=== PATIENT | female | born 1950 | race Caucasian/White ===

== ENCOUNTER → 2016-10-15 | Outpatient (CLI) | payer MEDICARE, BC ==
[2016-10-15 11:53] VITALS: BP 104/70; PULSE 83; RESP 18
--- NOTE | 2016-10-16 22:05 | P.PN ---
Subjective This is follow-up visit for this patient with a history of severe and chronic low back pain secondary to sacroiliitis, lumbar facet arthropathy, we have done interventional pain management injection, bilateral sacroiliac joint steroid injection, x2 , patient reported that she gets excellent pain relief after each one of them, and is currently on pain medications 1- Percocet 7.5/325 every 8 hours 2- Neurontin 400 mg twice a day 3 - baclofen 10 mg 3 times a day when necessary Patient denies any side effects of the medication, denies excessive drowsiness or sleepiness, denies suicidal ideation, and reports that the current pain medication is helping To control the pain and improve activity of daily living Physical Examinations : 1-Constitutiona : Cooperative , not in acute distress . 2-HEENT : nech ; supple , no Lymphadenopathy , no Thyromegaly , normal thyroid size . eyes : no ptosis , no icterus, no photophobia . ENT : normal of hearing , normal oropharynx , no Thrush . 3- Respiratory : Chest clear to auscultations Bilaterally , no wheezing , no Rhonchi . 4- Cardiovascular : regular rate and rhythem , S1 , S2 , no S3 , no S4. 5- Gastrointestinal : abdomen soft no tenderness , bowel sounds positive all four quadrents , no organomegally . 6- Genitourinary : Defferred . 7- neurologic : Cranial nerve II to XII intact , no focal neurological deffecit . 8-psychatric : alert , oriented X 3 , appropriate affect , intact judgment and insight . 9-Lymphatic : no Lymphadenopathy . 10- musculoskeltal : exams of the cervical spine = motor strength normal bilateral upper extremities exams of the Lumber spine = motor strength lower extremities ,thigh and legs .5/5 deep tendon reflexes : normal Knee Jerk , normal ankle Jerk . lumber facet Loading Test positive strait leg raising test positive at 30 degree , RT ,LT , Fabere test positive RT and positive LT . Range of motion: Range of motion in flexion of the lumbar spine 30 degrees Range of motion range of motion of extension of the lumbar spine 10 Sever tenderness over the Sacroiliac joint on the Right , and Left side Assessment and plan = - Chronic low back pain secondary to lumbar degenerative disc disease , lumbar spondylosis with facet arthropathy without myelopathy , and bilateral sacroiliitis -chronic and current use of high-risk medication (Opioids). The patient was counseled about risk of opioid use, psychological risk associated with opioids and was orally counseled to not overuse , abuse , divert ,or sell dictations to take medications as prescribed only , and to restore medication in safe location , and patient counseled against driving while using narcotic medications, and also not to use alcohol or any illicit recreational drugs the patient's verbalized understanding that the lack of compliance will result in failure to renew narcotic prescription and possible discharge from the clinic - diagnoses, prognosis, and treatment options including but not limited to physical therapy, surgical interventions, interventional therapies and medication management including narcotics and adjuvant medication were discussed with the patient and all questions answered to the patient's satisfaction. -medication refile =1-Percocet 7.5/325 every 8 hours dispense 60 with 1 refill 2- Neurontin 400 mg twice a day dispense 60 with one refill 3- baclofen 10 mg 3 times a day when necessary -procedure= patient will be good candidate to have radiofrequency ablation of the sacroiliac joint (which is the radiofrequency of the dorsal ramus of L5-S1/ and the lateral branches of S1/S2/S3, we'll start the left side then we'll do the right side later on. Procedure risk and benefits and alternatives discussed with the patient and she agreed with proceeding he shouldn't have to stop the xarlto for 3 days before the procedure Objective - Vital Signs Vital signs: Vital Signs Temp Pulse 83 10/15/16 11:47 Resp 18 10/15/16 11:47 BP 104/70 10/15/16 11:47 Pulse Ox 96 10/15/16 11:47
== END | disposition home or self-care (01) ==
LOC: PNWHC3 11:27
PROVIDERS: ATTEND Specialist
DX: M51.36 Other intervertebral disc degeneration, lumbar region (principal); M47.816 Spondylosis without myelopathy or radiculopathy, lumbar region; M46.96 Unspecified inflammatory spondylopathy, lumbar region; M46.1 Sacroiliitis, not elsewhere classified; Z79.891 Long term (current) use of opiate analgesic
CPT/HCPCS: 99211

== ENCOUNTER 2016-12-03 09:14 | Day surgery (SDC) | payer MEDICARE, BC ==
[2016-11-29 16:10] VITALS: BMI 44.9
[~2016-12-03 09:14] MED LIST: LACTATED RINGERS 1,000 ML IV SCH
[2016-12-03 10:24] VITALS: RESP 16; TEMP 98.1
[2016-12-03] MEDS ORDERED: LIDOCAINE 1% 20 ML VIAL (10MG/ML) FOR IV START INTRADERMA ONE (10:36)
[2016-12-03] MEDS ORDERED: MIDAZOLAM 2 MG/2 ML VIAL ONE (10:47)
[2016-12-03] MEDS ORDERED: fentaNYL (PF) 50 MCG/ML 2 ML AMP ONE (10:47)
--- NOTE | 2016-12-03 11:14 | P.PCN ---
Date of Procedure: 12/03/16 Surgeon: Sheldon Rock Pathology: none sent Condition: stable Disposition: PACU Description of Procedure: PREOPERATIVE DIAGNOSIS: Sacroiliitis; lumbar spondylosis without myelopathy POSTOPERATIVE DIAGNOSIS: Sacroiliitis; lumbar spondylosis without myelopathy PROCEDURE: Radiofrequency thermocoagulation/ablation of the Medial branch of L5 and S1, S2, S3 lateral branch levels under fluoroscopic guidance, left ANESTHESIA: Local with 1% lidocaine; IV conscious sedation with Versed/fentanyl EBL: Minimal PROCEDURE INDICATION: The patient with low back pain secondary to sacroilitis with marked decrease in pain with prior sacroiliac joint injections. Off Xarelto since 11/29/16. PROCEDURE DESCRIPTION: The patient was seen and identified in the preoperative area. Risks, benefits, complications, and alternatives were discussed with the patient, with risks including but not limited to bleeding, infection, nerve damage, incomplete pain relief, and allergic reactions to medications. The patient agreed to proceed with the procedure and signed the informed consent after all questions were answered. IV was started. Vital signs were stable throughout the procedure. Patient was taken to the OR and time out was completed.The patient was placed in the prone position on procedure table and a pillow was placed under the abdomen to reduce lumbar lordosis. The lumbosacral area was prepped and draped in the usual sterile fashion. Critical pause was taken. Vital signs were closely monitored during the procedure. L5 Medial Branch: Using right oblique fluoroscopy, the junction of the transverse process and the superior articular process of the top of the sacrum on the left side, which correspond to the fluoroscopic image of the "eye of the Dick dog" was identified. Skin and deeper tissues were localized with 1% lidocaine at the identified level. Then using fluoroscopy, a 10-cm 20-gauge radiofrequency cannula with a 10-mm active tip was was advanced under fluoroscopic guidance until contact was made with periosteum. At this level, the Sensory testing of L5 Medial branch was performed at 50 Hz and 0 to 1 volt with production of concordant pain. Motor stimulation was done at 2 Hz with stimulation of multifidus muscle contraction at (0.1-2.5) volts. No radicular symptoms or paresthesias were produced during the testing. Subsequently, the L5 medial branch was subjected to a radiofrequency ablation at a mode of 90 seconds at 80 degrees Celsius after negative motor and sensory testing as indicated and after injecting 0.5 ml of preservative free Lidocaine 1%. Then after the radiofrequency procedure was done, 1 mL of a solution containing 4 mL of 0.5% preservative-free lidocaine mixed with 40 mg of Kenalog. S1, S2, and S3 Medial branches: Using the oblique position, the left sacroiliac joint was identified. Skin and deeper tissues corresponding to the site were anesthetized with 1% lidocaine. Under fluoroscopic guidance, a total of three 10-cm 18-gauge radiofrequency cannula with 10-mm active tips were advanced to the lateral aspects of the S1, S2, and S3 vertebral foramina. Subsequently, sensory and motor testings were performed at a total of 3 segments at 50 Hz and 2 Hz respectively which produced concordant pain without radiculopathy or paresthesia. Then each segment was subjected to radiofrequency ablation at a mode of 90 seconds at 80 degrees Celsius for a total of 3 lesions with the bipolar technique. Then after the radiofrequency procedure was done, each site was injected with 1 mL of the aforementioned solution containing 3 mL of 0.5% preservative-free lidocaine mixed with 40 mg of Kenalog. The needles were withdrawn. Area was cleaned. Band-Aid was applied. COMPLICATIONS: None. COMMENTS: DISPOSITION / PLANS: The patient was placed in a supine position and transferred to the recovery area in a stable condition for observation and was discharged from the recovery room after meeting discharge criteria. Home discharge instructions given to the patient by the staff. The patient was reexamined prior to discharge. The patient will schedule a follow up for right SI RFA in 4-6 weeks.
--- NOTE | 2016-12-03 11:20 | FL ---
EXAMINATION TYPE: FL guided pain mgmt statistic DATE OF EXAM: 12/03/2016 11:15 AM HISTORY: Flouroscopy time Less than 1 minute of fluoroscopy provided. IMPRESSION: 1. Fluoroscopy time.
[2016-12-03] MEDS ORDERED: IV FLUID CONTINUATION 1,000 ML IV ONE (11:22)
[2016-12-03 11:40] VITALS: BP 118/70; PULSE 67
== END 2016-12-03 12:05 | disposition home or self-care (01) ==
LOC: ORPAIN 09:14
PROVIDERS: ATTEND Anesthesiology
DX: G89.29 Other chronic pain (principal); M54.5 Low back pain; M46.1 Sacroiliitis, not elsewhere classified; M47.816 Spondylosis without myelopathy or radiculopathy, lumbar region; Z79.01 Long term (current) use of anticoagulants; E66.01 Morbid (severe) obesity due to excess calories; Z68.41 Body mass index [BMI] 40.0-44.9, adult; Z88.0 Allergy status to penicillin; Z88.8 Allergy status to other drugs, medicaments and biological substances
CPT/HCPCS: 64640 ×3; 64635; 99152; 99153; J2250; J3010; 64636

== ENCOUNTER → 2017-01-14 | Day surgery (SDC) | payer MEDICARE, BC ==
[2017-01-09 15:04] VITALS: BMI 44.9
[~2017-01-14] MED LIST changes: +BUPIVACAINE (PF) 0.5% 30 ML VIAL ONE; +IV FLUID CONTINUATION 1,000 ML IV ONE; +LIDOCAINE 1% 20 ML VIAL (10MG/ML) FOR IV START INTRADERMA ONE; +MIDAZOLAM 2 MG/2 ML VIAL ONE; +TRIAMCINOLONE ACETONIDE 40 MG/ML 1 ML VIAL ONE; +fentaNYL (PF) 50 MCG/ML 2 ML AMP ONE
[2017-01-14 09:34] VITALS: TEMP 98.3
--- NOTE | 2017-01-14 10:35 | P.PCN ---
Date of Procedure: 01/14/17 Procedure(s) Performed: PREOPERATIVE DIAGNOSIS: 1-Lumbosacral spondylosis with facet arthropathy without myelopathy. 2- Bilateral sacroiliit. post operative Diagnosis: . 1-Lumbosacral spondylosis with facet arthropathy without myelopathy. 2-Bilateral sacroiliit. PROCEDURES: 1- Right radiofrequency thermocoagulation/ablation of the L5 dorsal ramus. 2- Right multi-site radiofrequency thermocoagulation/ablation of the S1, S2, and S3 lateral branchs. The procedure was performed using fluoroscopic guidance during needle placement to assure proper position and maximize safety ANESTHESIA: LOCAL ANESTHESIA and IV sedation with versed 2 mg ,and Fentanyle 100 mcg EBL: NONE INDICATION/MEDICAL NECESSITY: History of low back pain secondary to bilateral sacroiliitis and lumbosacral arthropathy unresponsive to more conservative treatments. The patient reported more than 50% relief of pain symptoms following 2 previous diagnostic blocks with Bupivacaine. PROCEDURE DESCRIPTION: The patient was seen and identified in the preoperative area. Risks, benefits, complications, and alternatives were discussed with the patient. The patient agreed to proceed with the procedure and signed the consent. Vital signs were checked before and after the procedure and they remained stable. Patient ambulated to the procedure room and time out was completed. The patient was placed in the prone position on the procedure table and a pillow was placed under the abdomen to reduce lumbar lordosis. The lumbosacral area was prepped and draped in the usual sterile fashion. Critical pause was taken. L5 Dorsal Ramus RF: Using right oblique fluoroscopy, the junction of the transverse process and the superior articular process of the right S1 vertebra, which correspond to the fluoroscopic image of the "eye of the Dick dog" was identified. Subsequently, a 10-cm 20 -gauge radiofrequency cannula with a 10-mm active tip was advanced under fluoroscopic guidance until contact was made with periosteum. At this level, the Sensory testing of the L5 dorsal ramus was performed at 50 Hz and 0 to 1 volt with production of concordant pain starting at 0.5 volt. Motor stimulation was done at 2.5 Hz with stimulation of mulitifidus muscle contration . No radicular symptoms or paresthesias were produced during the testing. Subsequently, the L5 dorsal ramus was subjected to a radiofrequency ablation at 80 degree celsius for 90 seconds . after 0.5% Bupivacaine 1 ml injected at each level after negative aspirations . The needle was withdrawn intact . S1, S3, and S3 Lateral Branch RF: The lateral margins of the Right S1, S2, and S3 foramina were identified using AP fluoroscopy. Under fluoroscopic guidance, three 10-cm 20 -gauge radiofrequency cannula with a 10-mm active tip were inserted at 8-10 mm peripheral to the posterior S1 foramen, at various locations using clock-face coordinates. The center of the clock was registered at the lateral margin of the foramen. The 2:30, 4:00, and 5:30 oclock positions were used. At this level , the sensory testing of the S1 lateral branch was performed at 50 Hz and 0 to 1 volt at the three levels with production of concordant pain starting at 0.5 volt. Motor stimulation was done at 2.5 Hz. No radicular symptoms or paresthesias were produced during the testing. Subsequently, the S1 lateral branch was subjected to a radiofrequency ablation at a mode of 90 seconds at 80 degrees Celsius at the 3 levels after negative motor and sensory testing and after injecting 0.5 ml of preservative free Bupivacaine 0.5 %. The same procedure was performed at the level of the S2 foramen. For the S3 foramen, only the 2:30 and 4:00 oclock positions were used. Sensory and motor testing followed by radiofrequency ablation were performed as described for the S1 and S2 foramina. The needle was withdrawn intact after each injection. COMPLICATIONS: The patient tolerated the procedure well without any acute complications. DISPOSTION/PLAN: The patient ambulated to the recovery area after the procedure in a stable condition for observation. Patient was reexamined prior to discharge. Patient was observed for 30 minutes in the recovery area and was discharged home, accompanied by an adult, after meeting discharged criteria. Discharge instructions were give to the patient by the staff. Patient was specifically instructed not to drive today and to rest for the rest of the day. The patient will schedule a follow up visit in the clinic in 2-4 weeks or earlier if needed.
[2017-01-14 10:48] VITALS: RESP 16
[2017-01-14 11:04] VITALS: BP 116/67; PULSE 68
--- NOTE | 2017-01-14 13:04 | FL ---
EXAMINATION TYPE: FL guided pain mgmt statistic DATE OF EXAM: 01/14/2017 10:42 AM FLUOROSCOPY Fluoroscopy time of 52 seconds was used during right sacral radiofrequency procedure. 8 image/s docu ment/s the procedure.
== END ==
LOC: ORPAIN 08:32
PROVIDERS: ATTEND Specialist
DX: M47.817 Spondylosis without myelopathy or radiculopathy, lumbosacral region (principal); M46.97 Unspecified inflammatory spondylopathy, lumbosacral region; M46.1 Sacroiliitis, not elsewhere classified; E27.40 Unspecified adrenocortical insufficiency; Z88.1 Allergy status to other antibiotic agents; Z88.0 Allergy status to penicillin; Z88.8 Allergy status to other drugs, medicaments and biological substances; Z79.01 Long term (current) use of anticoagulants
CPT/HCPCS: 64640 ×3; 64635; 99152; 99153 ×2; J2250; J3301; J3010

== ENCOUNTER → 2017-02-06 | Outpatient (CLI) | payer MEDICARE, BC ==
[2017-02-06 12:33] VITALS: BP 132/85; PULSE 75; RESP 18; TEMP 98
--- NOTE | 2017-02-07 21:59 | P.CONS ---
History of Present Illness - Reason for Consult Consult date: 02/06/17 - History of Present Illness This is follow-up visit for this 66 years old female with a history of chronic low back pain diagnosed with lumbar spondylosis and sacroiliitis, done radiofrequency ablation of the sacroiliac joint right side and left side, she reported that her pain improved significantly after the radiofrequency and she is currently taking pain medication Percocet 7.5/325 every 8 hours when necessary, and Neurontin 400 mg twice a day, and baclofen 5 mg 3 times a day, denies any side effect of the medication she denies any excessive drowsiness or sleepiness and she reports the current pain medication helping her to control her pain. 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 MTHFR GENE. STUCCO KERATOSIS, past fxs of L foot and R ankle, sciatic problems, diverticulitis History of Any Multi-Drug Resistant Organisms: None Reported Past Surgical History: Section, Cholecystectomy, Heart Catheterization , Orthopedic Surgery Additional Past Surgical History / Comment(s): RT ANKLE- PLATE & SCREWS, COLONOSCOPIES, EGDs, Bronchial Thermoplasty X3., KENDALL CATARACTS with lens implants. DEVIATED SEPTUM SURGERY. MULTIPLE BRONCHOSCOPIES, ABLATION of lungs. Past Anesthesia/Blood Transfusion Reactions: Family History of Problems w/ Anesthesia, Postoperative Nausea & Vomiting (PONV) Additional Past Anesthesia/Blood Transfusion Reaction / Comm: Pt has never received blood. DAUGHTER PONV Past Psychological History: No Psychological Hx Reported Additional Psychological History / Comment(s): . Smoking Status: Former smoker Past Alcohol Use History: None Reported Additional Past Alcohol Use History / Comment(s): quit smoking in 1989, smoked 1 /2 ppd x 10 years Past Drug Use History: None Reported - Past Family History Father Family Medical History: Cancer Additional Family Medical History / Comment(s): colon Mother Family Medical History: Congestive Heart Failure (CHF) Additional Family Medical History / Comment(s): emphysema Daughter(s) Family Medical History: Deep Vein Thrombosis (DVT) Medications and Allergies Home Medications Medication Instructions Recorded Confirmed Type Simvastatin [Zocor] 10 mg PO HS 04/27/14 01/14/17 History Atenolol [Tenormin] 25 mg PO QAM 10/19/14 01/14/17 History Fluticasone Propionate [Flovent 2 puff INHALATION BID 10/19/14 01/14/17 History Hfa 220MCG] Furosemide [Lasix] 20 mg PO DAILY PRN 10/19/14 01/14/17 History Potassium Chloride [Klor-Con 10] 10 meq PO DAILY PRN 10/19/14 01/14/17 History Salmeterol Xinafoate [Serevent 1 puff INHALATION BID 10/19/14 01/14/17 History Diskus] Albuterol Inhaler [Ventolin Hfa 2 puff INHALATION Q6HR PRN 11/05/14 01/14/17 History Inhaler] Niacin 500 mg PO DAILY@1200 03/08/15 01/14/17 History Tyler-3 Fatty Acids [Tyler-3] 1,000 mg PO DAILY #0 03/08/15 01/14/17 History Calcium Carbonate/Vitamin D3 2 tab PO PC-SUPPER 06/25/15 01/14/17 History [Calcium 600-Vit D3 400 Tablet] Levothyroxine Sodium [Synthroid] 112 mcg PO QAM 09/15/15 01/14/17 History Rivaroxaban [Xarelto] 20 mg PO QAM 11/15/15 01/14/17 History Cetirizine HCl [Zyrtec] 10 mg PO DAILY 01/27/16 01/14/17 History Hair And Nails 2 tab PO DAILY@1200 01/27/16 01/14/17 History Esomeprazole Magnesium [NexIUM] 40 mg PO QAM 04/05/16 01/14/17 History Multivitamin [Multivitamins Adult 2 tab PO DAILY 05/07/16 01/14/17 History Gummies] Loratadine [Claritin] 10 mg PO DAILY PRN 07/16/16 01/14/17 History Zolpidem [Ambien] 5 mg PO HS PRN 07/16/16 01/14/17 History Azithromycin [Zithromax] 250 mg PO MOWEFR 08/08/16 01/14/17 History Bisacodyl [Dulcolax] 10 mg PO DAILY 11/29/16 01/14/17 History Ipratropium Nebulized [Atrovent 0.5 mg INHALATION TID 01/09/17 01/14/17 History Nebulized] Vit C/E/Zn/Coppr/Lutein/Zeaxan 1 each PO BID 01/09/17 01/14/17 History [Preservision Areds 2 Softgel] Allergies Allergy/AdvReac Type Severity Reaction Status Date / Time cefuroxime axetil Allergy Dyspnea Verified 02/06/17 12:20 [From Ceftin] moxifloxacin HCl Allergy Dyspnea Verified 02/06/17 12:20 [From Avelox] Penicillins Allergy Dyspnea Verified 02/06/17 12:20 rofecoxib [From Vioxx] Allergy Dyspnea Verified 02/06/17 12:20 blackberry Allergy Unknown Uncoded 02/06/17 12:20 Physical Exam Vitals: Physical Examinations : 1-Constitutiona : Cooperative , not in acute distress . 2-HEENT : nech ; supple , no Lymphadenopathy , no Thyromegaly , normal thyroid size . eyes : no ptosis , no icterus, no photophobia . ENT : normal of hearing , normal oropharynx , no Thrush . 3- Respiratory : Chest clear to auscultations Bilaterally , no wheezing , no Rhonchi . 4- Cardiovascular : regular rate and rhythem , S1 , S2 , no S3 , no S4. 5- Gastrointestinal : abdomen soft no tenderness , bowel sounds positive all four quadrents , no organomegally . 6- Genitourinary : Defferred . 7- neurologic : Cranial nerve II to XII intact , no focal neurological deffecit . 8-psychatric : alert , oriented X 3 , appropriate affect , intact judgment and insight . 9-Lymphatic : no Lymphadenopathy . 10- musculoskeltal : exams of the Lumber spine = moter stegnth lower extremities ,thigh and legs .4/5 Assessment and Plan Plan: Assessment and plan= 1- chronic pain syndrome. 2-lumbar spondylosis. 3-bilateral sacroiliitis. 4-chronic and current use of high-risk medication ( opioid ). Pain improved after the radiofrequency ablation of the sacroiliac joint, and denies any side effect of the current pain medication she is receiving, I will refill the medication Percocet 7.5/325 every 8 hours dispense 60 with one refill, Neurontin 400 mg twice a day dispense 60 with 1 refill, and baclofen 5 mg 3 times a day dispense 90 with 1 refill, will follow up with the pain clinic in 2 months Time with Patient: Less than 30
== END | disposition home or self-care (01) ==
LOC: PNWHC3 12:02
PROVIDERS: ATTEND Specialist
DX: M47.816 Spondylosis without myelopathy or radiculopathy, lumbar region (principal); M46.1 Sacroiliitis, not elsewhere classified; G89.4 Chronic pain syndrome; J45.909 Unspecified asthma, uncomplicated; J44.9 Chronic obstructive pulmonary disease, unspecified; Z87.891 Personal history of nicotine dependence; Z79.891 Long term (current) use of opiate analgesic; Z79.899 Other long term (current) drug therapy; Z79.01 Long term (current) use of anticoagulants; Z88.1 Allergy status to other antibiotic agents; Z88.0 Allergy status to penicillin
CPT/HCPCS: 99211

== ENCOUNTER 2017-02-24 09:55 | Observation (INO) | payer MEDICARE, BC ==
[2017-02-24] MEDS ORDERED: MORPHINE SULFATE 4 MG/ML SYRINGE IV STA (10:34)
[2017-02-24] MEDS ORDERED: ASPIRIN 81 MG CHEW PO STA (10:34)
[2017-02-24] MEDS ORDERED: NITROGLYCERIN OINT 1 INCH/GM PACKET TOPICAL STA (10:34)
[2017-02-24] MEDS ORDERED: RX INFO: IV CONTRAST WAS GIVEN 1 EACH MISC MISCELLANE PRN (10:35)
--- NOTE | 2017-02-24 10:38 | ED ---
General Adult HPI - General Chief complaint: Chest Pain Stated complaint: chest pain Time Seen by Provider: 02/24/17 10:27 Source: patient, family, RN notes reviewed Mode of arrival: wheelchair Limitations: no limitations - History of Present Illness Initial comments: Patient is a pleasant 66-year-old female presenting to the emergency department complaining of chest discomfort. Onset of symptoms was last night. Symptoms worsened today. Patient has a sharp or tightness in her chest and back. Patient does feel somewhat short of breath however feels this may be related to the discomfort she has with taking breaths. Patient has had similar symptoms previously associated with pleurisy, pneumonia, and pulmonary embolism. Patient is currently anticoagulated with Xarelto. Patient has been coughing some recently, nonproductive. - Related Data Home Medications Medication Instructions Recorded Confirmed Simvastatin [Zocor] 10 mg PO HS 04/27/14 02/24/17 Atenolol [Tenormin] 25 mg PO QAM 10/19/14 02/24/17 Fluticasone Propionate [Flovent 2 puff INHALATION RT-BID 10/19/14 02/24/17 Hfa 220MCG] Furosemide [Lasix] 20 mg PO DAILY PRN 10/19/14 02/24/17 Potassium Chloride [Klor-Con 10] 10 meq PO DAILY PRN 10/19/14 02/24/17 Salmeterol Xinafoate [Serevent 1 puff INHALATION RT-BID 10/19/14 02/24/17 Diskus] Albuterol Inhaler [Ventolin Hfa 2 puff INHALATION RT-Q6H PRN 11/05/14 02/24/17 Inhaler] Niacin 500 mg PO DAILY@1200 03/08/15 02/24/17 [place]-3 Fatty Acids [[place]-3] 1,000 mg PO DAILY #0 03/08/15 02/24/17 Calcium Carbonate/Vitamin D3 2 tab PO PC-SUPPER 06/25/15 02/24/17 [Calcium 600-Vit D3 400 Tablet] Levothyroxine Sodium [Synthroid] 112 mcg PO QAM 09/15/15 02/24/17 Rivaroxaban [Xarelto] 20 mg PO QAM 11/15/15 02/24/17 Cetirizine HCl [Zyrtec] 10 mg PO DAILY PRN 01/27/16 02/24/17 Hair And Nails 2 tab PO DAILY@1200 01/27/16 02/24/17 Esomeprazole Magnesium [NexIUM] 40 mg PO QAM 04/05/16 02/24/17 Multivitamin [Multivitamins Adult 2 tab PO DAILY 05/07/16 02/24/17 Gummies] Loratadine [Claritin] 10 mg PO DAILY PRN 07/16/16 02/24/17 Zolpidem [Ambien] 5 mg PO HS PRN 07/16/16 02/24/17 Azithromycin [Zithromax] 250 mg PO MOWEFR 08/08/16 02/24/17 Ipratropium Nebulized [Atrovent 0.5 mg INHALATION RT-TID PRN 01/09/17 02/24/17 Nebulized] Vit C/E/Zn/Coppr/Lutein/Zeaxan 1 cap PO BID 01/09/17 02/24/17 [Preservision Areds 2 Softgel] Baclofen 5 - 10 mg PO TID PRN 02/24/17 02/24/17 Butalb/APAP/Caff 50-325-40Mg 1 tab PO Q4H PRN 02/24/17 02/24/17 [Fioricet 50-325-40] Docusate [Colace] 100 mg PO DAILY PRN 02/24/17 02/24/17 Hydrocortisone [Cortef] 5 mg PO DAILY@1500 02/24/17 02/24/17 Hydrocortisone [Cortef] 15 mg PO DAILY 02/24/17 02/24/17 Ipratropium-Albuterol Nebulize 3 ml INHALATION RT-QID PRN 02/24/17 02/24/17 [Duoneb 0.5 mg-3 mg/3 ml Soln] Ubidecarenone [Co Q-10] 200 mg PO DAILY 02/24/17 02/24/17 hydrOXYzine PAMOATE [Vistaril] 50 mg PO DAILY PRN 02/24/17 02/24/17 Previous Rx's Medication Instructions Recorded Gabapentin [Neurontin] 400 mg PO BID #60 cap 02/06/17 oxyCODONE-APAP 7.5-325MG [Percocet 1 tab PO BID PRN #60 tab 02/06/17 7.5-325 mg] Allergies Allergy/AdvReac Type Severity Reaction Status Date / Time cefuroxime axetil Allergy Dyspnea Verified 02/24/17 10:49 [From Ceftin] moxifloxacin HCl Allergy Dyspnea Verified 02/24/17 10:49 [From Avelox] Penicillins Allergy Dyspnea Verified 02/24/17 10:49 rofecoxib [From Vioxx] Allergy Dyspnea Verified 02/24/17 10:49 blackberry Allergy Unknown Uncoded 02/24/17 10:05 Review of Systems ROS Statement: Those systems with pertinent positive or pertinent negative responses have been documented in the HPI. ROS Other: All systems not noted in ROS Statement are negative. Constitutional: Denies: fever Eyes: Denies: eye pain ENT: Denies: ear pain Respiratory: Reports: cough, dyspnea Cardiovascular: Reports: chest pain Endocrine: Denies: fatigue Gastrointestinal: Denies: abdominal pain Genitourinary: Denies: dysuria Musculoskeletal: Denies: back pain Skin: Denies: rash Neurological: Denies: headache Past Medical History Past Medical History: Asthma, Blood Disorder, Chest Pain / Angina, COPD, Eye Disorder, Fibromyalgia, GERD/Reflux, Hyperlipidemia, Osteoarthritis (OA), Pneumonia, Pulmonary Embolus (PE), Respiratory Disorder, Skin Disorder, Thyroid Disorder Additional Past Medical History / Comment(s): Adrenal Insufficency, IBS, Migraines, Heart Palpitations, Hiatal Hernia, pseudomonas in lungs, 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 MTHFR GENE. STUCCO KERATOSIS, past fxs of L foot and R ankle, sciatic problems, diverticulitis History of Any Multi-Drug Resistant Organisms: None Reported Past Surgical History: Section, Cholecystectomy, Heart Catheterization , Orthopedic Surgery Additional Past Surgical History / Comment(s): RT ANKLE- PLATE & SCREWS, COLONOSCOPIES, EGDs, Bronchial Thermoplasty X3., KENDALL CATARACTS with lens implants. DEVIATED SEPTUM SURGERY. MULTIPLE BRONCHOSCOPIES, ABLATION of lungs. Past Anesthesia/Blood Transfusion Reactions: Family History of Problems w/ Anesthesia, Postoperative Nausea & Vomiting (PONV) Additional Past Anesthesia/Blood Transfusion Reaction / Comment(s): Pt has never received blood. DAUGHTER PONV Past Psychological History: No Psychological Hx Reported Additional Psychological History / Comment(s): . Smoking Status: Former smoker Past Alcohol Use History: None Reported Additional Past Alcohol Use History / Comment(s): quit smoking in 1989, smoked 1 /2 ppd x 10 years Past Drug Use History: None Reported - Past Family History Father Family Medical History: Cancer Additional Family Medical History / Comment(s): colon Mother Family Medical History: Congestive Heart Failure (CHF) Additional Family Medical History / Comment(s): emphysema Daughter(s) Family Medical History: Deep Vein Thrombosis (DVT) General Exam Limitations: no limitations General appearance: alert, in no apparent distress Head exam: Present: atraumatic Eye exam: Present: normal appearance, PERRL ENT exam: Present: normal oropharynx Neck exam: Present: normal inspection Respiratory exam: Present: normal lung sounds bilaterally. Absent: chest wall tenderness Cardiovascular Exam: Present: regular rate, normal rhythm Expanded Peripheral pulses: 2+: Radial (R), Radial (L), Dorsalis Pedis (R), Dorsalis Pedis (L) GI/Abdominal exam: Present: soft. Absent: tenderness Extremities exam: Present: normal inspection. Absent: pedal edema, calf tenderness Back exam: Present: normal inspection. Absent: tenderness Neurological exam: Present: alert Psychiatric exam: Present: normal affect, normal mood Skin exam: Present: normal color Course Vital Signs 02/24/17 02/24/17 10:02 11:56 Temperature 98.9 F Pulse Rate 69 76 Respiratory 18 20 Rate Blood Pressure 132/86 145/65 O2 Sat by Pulse 94 L 97 Oximetry EKG Findings - EKG Comments: EKG Findings:: Normal sinus rhythm 66. Normal intervals. Left axis. LVH criteria. Nonspecific ST-T. Medical Decision Making - Medical Decision Making Patient reevaluated and resting comfortably in bed. Patient and family updated on results and plan. Case was discussed with Dr. Melgar, who will admit for Dr. Kacey Velázquez. - Lab Data Result diagrams: 02/24/17 10:27 02/24/17 10:27 Lab Results 02/24/17 02/24/17 02/24/17 Range/Units 10:27 10:27 10:27 WBC 8.4 (3.8-10.6) k/uL RBC 4.55 (3.80-5.40) m/uL Hgb 14.0 (11.4-16.0) gm/dL Hct 42.7 (34.0-46.0) % MCV 94.0 (80.0-100.0) fL MCH 30.7 (25.0-35.0) pg MCHC 32.6 (31.0-37.0) g/dL RDW 13.6 (11.5-15.5) % Plt Count 225 (150-450) k/uL Neutrophils % 70 % Lymphocytes % 16 % Monocytes % 7 % Eosinophils % 3 % Basophils % 1 % Neutrophils # 5.9 (1.3-7.7) k/uL Lymphocytes # 1.4 (1.0-4.8) k/uL Monocytes # 0.6 (0-1.0) k/uL Eosinophils # 0.3 (0-0.7) k/uL Basophils # 0.1 (0-0.2) k/uL PT (9.0-12.0) sec INR (<1.1) APTT (22.0-30.0) sec D-Dimer (<0.60) mg/L FEU Sodium 143 (137-145) mmol/L Potassium 4.2 (3.5-5.1) mmol/L Chloride 110 H (98-107) mmol/L Carbon Dioxide 25 (22-30) mmol/L Anion Gap 8 mmol/L BUN 22 H (7-17) mg/dL Creatinine 0.70 (0.52-1.04) mg/dL Est GFR (MDRD) Af Amer >60 (>60 ml/min/1.73 sqM) Est GFR (MDRD) Non-Af >60 (>60 ml/min/1.73 sqM) Glucose 97 (74-99) mg/dL Calcium 9.4 (8.4-10.2) mg/dL Magnesium 2.1 (1.6-2.3) mg/dL Total Bilirubin 1.6 H (0.2-1.3) mg/dL AST 31 (14-36) U/L ALT 35 (9-52) U/L Alkaline Phosphatase 78 (38-126) U/L Total Creatine Kinase 139 H (30-135) U/L CK-MB (CK-2) 1.4 (0.0-2.4) ng/mL CK-MB (CK-2) Rel Index 1.0 Troponin I <0.012 (0.000-0.034) ng/mL NT-Pro-B Natriuret Pep pg/mL Total Protein 6.7 (6.3-8.2) g/dL Albumin 3.9 (3.5-5.0) g/dL Amylase 73 (30-110) U/L Lipase 106 (23-300) U/L 02/24/17 02/24/17 Range/Units 10:27 10:27 WBC (3.8-10.6) k/uL RBC (3.80-5.40) m/uL Hgb (11.4-16.0) gm/dL Hct (34.0-46.0) % MCV (80.0-100.0) fL MCH (25.0-35.0) pg MCHC (31.0-37.0) g/dL RDW (11.5-15.5) % Plt Count (150-450) k/uL Neutrophils % % Lymphocytes % % Monocytes % % Eosinophils % % Basophils % % Neutrophils # (1.3-7.7) k/uL Lymphocytes # (1.0-4.8) k/uL Monocytes # (0-1.0) k/uL Eosinophils # (0-0.7) k/uL Basophils # (0-0.2) k/uL PT 14.1 H (9.0-12.0) sec INR 1.4 (<1.1) APTT 32.3 H (22.0-30.0) sec D-Dimer 0.45 (<0.60) mg/L FEU Sodium (137-145) mmol/L Potassium (3.5-5.1) mmol/L Chloride (98-107) mmol/L Carbon Dioxide (22-30) mmol/L Anion Gap mmol/L BUN (7-17) mg/dL Creatinine (0.52-1.04) mg/dL Est GFR (MDRD) Af Amer (>60 ml/min/1.73 sqM) Est GFR (MDRD) Non-Af (>60 ml/min/1.73 sqM) Glucose (74-99) mg/dL Calcium (8.4-10.2) mg/dL Magnesium (1.6-2.3) mg/dL Total Bilirubin (0.2-1.3) mg/dL AST (14-36) U/L ALT (9-52) U/L Alkaline Phosphatase (38-126) U/L Total Creatine Kinase (30-135) U/L CK-MB (CK-2) (0.0-2.4) ng/mL CK-MB (CK-2) Rel Index Troponin I (0.000-0.034) ng/mL NT-Pro-B Natriuret Pep 92 pg/mL Total Protein (6.3-8.2) g/dL Albumin (3.5-5.0) g/dL Amylase (30-110) U/L Lipase (23-300) U/L - Radiology Data Radiology results: report reviewed (Computed tomography scan of the chest negative for pulmonary embolism) Disposition Clinical Impression: Chest pain Disposition: ADMITTED IP TO THIS HOSP Referrals: Kacey Pelayo MD [Primary Care Provider] - 1-2 days Time of Disposition: 12:45
[2017-02-24 10:46] LABS: Basophils # (A) 0.1 k/uL (0-0.2); Basophils % (A) 1 %; CH 29.7; CHCM 31.7; Eosinophils # (A) 0.3 k/uL (0-0.7); Eosinophils % (A) 3 %; HCT 42.7 % (34.0-46.0); HDW 2.25; Luc # (Auto) 0.24; Luc % (Auto) 3; Lymphocytes # (A) 1.4 k/uL (1.0-4.8); Lymphocytes % (A) 16 %; MCH 30.7 pg (25.0-35.0); MCHC 32.6 g/dL (31.0-37.0); Mean Platelet Volume 7.9; Monocytes # (A) 0.6 k/uL (0-1.0); Monocytes % (A) 7 %; Neutrophils # (A) 5.9 k/uL (1.3-7.7); Neutrophils % (A) 70 %; RBC 4.55 m/uL (3.80-5.40); RDW 13.6 % (11.5-15.5); WBC 8.4 k/uL (3.8-10.6); WBC (Perox) 8.46
[2017-02-24 11:00] LABS: INR 1.4 (<1.1); Partial Thromboplastin Time 32.3 sec (22.0-30.0); Prothrombin Time 14.1 sec (9.0-12.0)
[2017-02-24 11:13] LABS: Creatine Kinase 139 U/L (30-135)
[2017-02-24 11:14] LABS: ALT 35 U/L (9-52); AST 31 U/L (14-36); Alkaline Phosphatase 78 U/L (38-126); Amylase 73 U/L (30-110); Anion Gap 8 mmol/L; Blood Urea Nitrogen 22 mg/dL (7-17); Calcium 9.4 mg/dL (8.4-10.2); Carbon Dioxide 25 mmol/L (22-30); Chloride 110 mmol/L (98-107); Glucose 97 mg/dL (74-99); Magnesium 2.1 mg/dL (1.6-2.3); Non-African American GFR(MDRD) >60 (>60 ml/min/1.73 sqM); Potassium 4.2 mmol/L (3.5-5.1); Sodium 143 mmol/L (137-145); Total Bilirubin 1.6 mg/dL (0.2-1.3); Total Protein 6.7 g/dL (6.3-8.2)
[2017-02-24 11:24] LABS: Creatine Kinase MB 1.4 ng/mL (0.0-2.4); Troponin I <0.012 ng/mL (0.000-0.034)
--- NOTE | 2017-02-24 12:22 | CT ---
CT CHEST FOR PULMONARY EMBOLISM. EXAMINATION TYPE: CT angio chest DATE OF EXAM: 02/24/2017 11:54 AM INDICATION: Pain with inspiration CT DLP: 486.5 mGycm, Automated exposure control for dose reduction was used. CONTRAST: Patient injected with 80 mL of Omnipaque 350. COMPARISON: 07/23/2016 TECHNIQUE: CT of the chest is performed on a spiral scan at 2 mm thick sections. Study is performed with intravenous contrast timed for evaluation for pulmonary embolism. This will limit additional po rtions of the evaluation. 3-D MIP images reconstructed by the technologist are reviewed on the compu ter in the coronal and sagittal planes. FINDINGS: No persistent filling defects are evident to suggest an acute pulmonary embolism. No mediastinal or hilar adenopathy enlarged by CT criteria is evident. The ascending aorta diameter at the level of the main pulmonary artery is 3.4 cm. The main pulmonary artery diameter at the bifur cation is 3.1 cm. Lung windows are clear. Limited CT section through the upper abdomen are unremarkable. IMPRESSIONS: 1. No acute pulmonary embolism.
[2017-02-24] MEDS ORDERED: NITROGLYCERIN SL TABS 0.4 MG TAB SUBLINGUAL PRN (12:46)
[2017-02-24] MEDS ORDERED: ALBUTEROL INHALER 60 PUFF/8 GM INHALER INHALATION PRN (15:18)
[2017-02-24] MEDS ORDERED: hydrOXYzine PAMOATE 25 MG CAP PO PRN (15:18)
[2017-02-24] MEDS ORDERED: DOCUSATE 100 MG CAP PO PRN (15:18)
[2017-02-24] MEDS ORDERED: LORATADINE 10 MG TAB PO PRN (15:18)
[2017-02-24] MEDS ORDERED: NON-FORMULARY DRUG (Cetirizine Hcl [Zyrtec] 10 MG) PO PRN (15:18)
[2017-02-24] MEDS ORDERED: IPRATROPIUM-ALBUTEROL 3 ML NEB INHALATION PRN (15:18)
[2017-02-24] MEDS ORDERED: oxyCODONE-APAP 7.5-325MG 1 EACH TAB PO PRN (15:18)
[2017-02-24] MEDS ORDERED: IPRATROPIUM 0.5 MG/2.5 ML NEBU INHALATION PRN ×2 (15:18→19:18)
[2017-02-24] MEDS ORDERED: ZOLPIDEM 5 MG TAB PO PRN (15:18)
[2017-02-24] MEDS ORDERED: POTASSIUM CHLORIDE ER 10 MEQ TAB.ER.PRT PO PRN (15:18)
[2017-02-24] MEDS ORDERED: FUROSEMIDE 20 MG TAB PO PRN (15:18)
[2017-02-24] MEDS ORDERED: BUTALB/APAP/CAFF 50-325-40MG TAB PO PRN (15:18)
--- NOTE | 2017-02-24 16:28 | HP ---
DATE OF ADMISSION: 02/24/2017 CHIEF COMPLAINT: Pain in the back radiating to the front. HISTORY OF PRESENT ILLNESS: Ms. Love is a 66-year-old female with a past medical history of asthma, hypertension, fibromyalgia, adrenal insufficiency, tracheobronchomalacia, lumbar stenosis, lumbar radiculopathy, morbid obesity, coming to the hospital with a chief complaint of upper back pain that is radiating to the front of her chest for the past one day. The patient noticed that she had twitching-like sensation in her back last night and that the pain was radiating from the back to the front of her chest. She felt that it was like a band around her chest and felt some difficulty in breathing and hence so came in the hospital for further evaluation. The patient does have history of chronic low back ache problems and she also has history of tracheomalacia and this made her feel very short of breath. She states when she tries to take in a deep breath, it does hurt her back. She denies having any fevers, chills or rigors. She denies having any recent travel. Patient is on anticoagulation with Xarelto for having risk of DVT. She is also on Zithromax 3 times a week as per pulmonary, Dr. Snider's recommendations. REVIEW OF SYSTEMS: CONSTITUTIONAL: Denies having any fevers, chills, or rigors. RESPIRATORY: As above. CARDIAC: No palpitations. No loss of consciousness. No dizziness. GI: No abdominal pain, nausea, vomiting, or diarrhea. : No dysuria or hematuria. ENDOCRINE: The patient has adrenal insufficiency and is on Cortef. MUSCULOSKELETAL: The patient has chronic low back problems as she has lumbar radiculopathy. HEMATOLOGICAL: No history of easy bruising or recurrent infections. All 13 review of systems are done and negative except for the ones mentioned in the HPI. Past medical history is significant for asthma, COPD, fibromyalgia, GERD, hypertension, hyperlipidemia, adrenal insufficiency, irritable bowel syndrome, migraine, tracheomalacia, lumbar degenerative disc disease, lumbar radiculopathy, morbid obesity. PAST SURGICAL HISTORY: , cholecystectomy, heart catheterization, orthopedic surgery and multiple bronchs due to history of tracheomalacia. FAMILY HISTORY: Colon cancer in her father, emphysema, congestive heart failure in her mother and DVT in her daughter. SOCIAL HISTORY: Former smoker. No history of intravenous drug abuse. Occasional alcohol. ALLERGIES: CEFUROXIME, MOXIFLOXACIN, PENICILLINS, BLACK BRYANT. Patient's home medications: 1. Zocor 10 mg p.o. q.h.s. 2. Atenolol 25 mg p.o. in the morning. 3. Flovent nasal spray. 4. Lasix 20 mg p.o. daily p.r.n. for lower extremity swelling. 5. Potassium chloride 10 meq p.o. daily p.r.n. when she takes Lasix. 6. Salmeterol 1 puff b.i.d. 7. Albuterol 2 puffs b.i.d. 8. [place]-3 fatty acids 1000 mg p.o. daily. 9. Niacin 500 mg p.o. daily. 10. Levothyroxine 112 mcg p.o. daily. 11. Xarelto 20 mg p.o. in the morning. 12. Zyrtec 10 mg p.o. daily. 13. Multivitamin gummies 2 tablets p.o. daily. 14. Claritin 10 mg p.o. daily. 15. Ambien 5 mg p.o. q.h.s. 16. Azithromycin 250 mg Saturday, Saturday and Saturday. 17. Vitamin C supplements 1 capsule daily. 18. Fioricet 1 tablet p.o. q.4 hours p.r.n. for headaches. 19. Colace 100 mg p.o. daily. 20. Cortef 5 mg p.o. at 3:00 p.m. and 50 mg in the morning. 21. Coenzyme-Q 200 mg p.o. daily. 22. Vistaril 50 mg p.o. p.r.n. for itching. The patient vitals: Temperature 98.4, heart rate 78, respirations 16, blood pressure 143/74, saturating at 94% on room air. GENERAL EXAMINATION: Morbidly obese female sitting up in the bed, appears to be in no acute distress. HEAD: Atraumatic, normocephalic. EYES: Pupils, round, and reactive to light. NECK: No JVD. No thyromegaly. CARDIOVASCULAR: S1, S2 heard. LUNGS: Bilateral breath sounds are positive, distinctly. No wheezes or crackles. ABDOMEN: Soft, nontender. Bowel sounds positive. Organomegaly difficulty to appreciate due to huge body habitus. Lower extremities: No pedal edema. Ankles appear to be slightly swollen. No redness. No warmth. BACK: Positive for tenderness in the upper mid back where she has pain that has been radiating to the front. A little spastic on the left side. PSYCHIATRIC: Appropriate mood and affect. SAP MANAGER: Alert, awake, oriented x3. No focal neurological deficits. Patient's labs: White count of 8.4, hemoglobin 14, platelets of 225, sodium 143, potassium 4.2, chloride 110, bicarb 25, BUN 22, creatinine 0.70. Troponin less than 0.12. The patient had a CTA of the chest, which was negative for any PE. ASSESSMENT AND PLAN: 1. Upper mid back pain most likely musculoskeletal in origin as she is spastic. We will continue with pain medications and scheduled muscle relaxants. 2. History of adrenal insufficiency. 3. Irritable bowel syndrome. 4. Migraines. 5. Gastroesophageal reflux disease. 6. Hyperlipidemia. 7. Osteoarthritis. 8. History of chronic obstructive pulmonary disease. 9. Lumbar radiculopathy. 10. Tracheomalacia. 11. History of diverticulitis. 12. History of multiple bronchs in the past. 13. History of pulmonary embolism in the past. 14. Thyroid disorder. PLAN: The pain the patient states was mostly in the back but now is radiating to the front. She had a CTA of the chest, which was negative for any PE. Cardiology has been consulted. Their evaluation pending but unlikely that it is related to her heart. We will continue her on muscle relaxants and pain medications and get serial troponins and EKGs. We will resume all her home medications and further recommendations to follow depending on the progress of the patient. RIAN
[2017-02-24 16:36] LABS: Creatine Kinase 135 U/L (30-135)
[2017-02-24 16:48] LABS: Creatine Kinase MB 1.3 ng/mL (0.0-2.4); Troponin I <0.012 ng/mL (0.000-0.034)
[2017-02-24] MEDS ORDERED: CALCIUM CARB-VIT D 500MG-200UN 1 EACH TAB PO SCH (18:30)
[2017-02-24] MEDS: FORMOTEROL FUMARATE 20 MCG/2 ML NEBU INHALATION SCH (19:16)
[2017-02-24] MEDS: BUDESONIDE 1 MG/2 ML NEBU INHALATION SCH (19:16)
[2017-02-24] MEDS: IPRATROPIUM 0.5 MG/2.5 ML NEBU INHALATION SCH (19:28)
[2017-02-24] MEDS: GABAPENTIN 400 MG CAP PO SCH (20:38)
[2017-02-24] MEDS: BACLOFEN 10 MG TAB PO PRN (20:39)
[2017-02-24] MEDS: NITROGLYCERIN OINT 1 INCH/GM PACKET TOPICAL SCH (20:39)
[2017-02-24] MEDS: VIT A,C & E-LUTEIN-MINERALS 1 EACH TAB PO SCH (20:39)
[2017-02-24] MEDS ORDERED: ATORVASTATIN 10 MG TAB PO SCH (21:00)
[2017-02-24 23:28] LABS: Creatine Kinase 169 U/L (30-135)
[2017-02-24 23:39] LABS: Creatine Kinase MB 1.2 ng/mL (0.0-2.4); Troponin I <0.012 ng/mL (0.000-0.034)
[2017-02-25] MEDS: NITROGLYCERIN OINT 1 INCH/GM PACKET TOPICAL SCH ×2 (00:08→06:21)
[2017-02-25] MEDS ORDERED: LEVOTHYROXINE 112 MCG TAB PO SCH (06:30)
[2017-02-25] MEDS: GABAPENTIN 400 MG CAP PO SCH (06:30)
[2017-02-25] MEDS: BACLOFEN 10 MG TAB PO PRN (06:30)
[2017-02-25] MEDS ORDERED: RIVAROXABAN 10 MG TAB PO SCH (07:30)
[2017-02-25] MEDS ORDERED: PANTOPRAZOLE 40 MG TABLET PO SCH (07:30)
[2017-02-25 07:53] VITALS: RESP 16
[2017-02-25 07:54] LABS: Anion Gap 10 mmol/L; Blood Urea Nitrogen 18 mg/dL (7-17); Calcium 9.3 mg/dL (8.4-10.2); Carbon Dioxide 26 mmol/L (22-30); Chloride 108 mmol/L (98-107); Cholesterol 145 mg/dL (<200); Glucose 92 mg/dL (74-99); HDL Cholesterol 62 mg/dL (40-60); Non-African American GFR(MDRD) >60 (>60 ml/min/1.73 sqM); Potassium 4.3 mmol/L (3.5-5.1); Sodium 144 mmol/L (137-145); Triglycerides 84 mg/dL (<150)
[2017-02-25 07:55] LABS: Basophils % (A) 1 %; CH 29.4; CHCM 31.2; Eosinophils # (A) 0.2 k/uL (0-0.7); Eosinophils % (A) 4 %; HCT 42.6 % (34.0-46.0); HDW 2.18; HGB 13.6 gm/dL (11.4-16.0); Hypochromasia Slight; Luc # (Auto) 0.21; Luc % (Auto) 4; Lymphocytes # (A) 1.2 k/uL (1.0-4.8); Lymphocytes % (A) 22 %; MCH 30.3 pg (25.0-35.0); MCHC 31.9 g/dL (31.0-37.0); MCV 94.8 fL (80.0-100.0); Mean Platelet Volume 8.2; Monocytes # (A) 0.4 k/uL (0-1.0); Monocytes % (A) 8 %; Neutrophils # (A) 3.2 k/uL (1.3-7.7); Neutrophils % (A) 62 %; RBC 4.49 m/uL (3.80-5.40); RDW 13.3 % (11.5-15.5); WBC 5.2 k/uL (3.8-10.6); WBC (Perox) 5.17
[2017-02-25] MEDS: FORMOTEROL FUMARATE 20 MCG/2 ML NEBU INHALATION SCH (08:29)
[2017-02-25] MEDS: BUDESONIDE 1 MG/2 ML NEBU INHALATION SCH (08:29)
[2017-02-25] MEDS: IPRATROPIUM 0.5 MG/2.5 ML NEBU INHALATION SCH (08:29)
[2017-02-25] MEDS ORDERED: NON-FORMULARY DRUG (Ubidecarenone [Co Q-10] 200 MG) PO SCH (09:00)
[2017-02-25] MEDS ORDERED: ASPIRIN 325 MG TAB PO SCH (09:00)
[2017-02-25] MEDS ORDERED: HYDROCORTISONE 10 MG TAB PO SCH ×2 (09:00→15:00)
[2017-02-25] MEDS ORDERED: MULTIVITAMINS, THERA 1 EACH TAB PO SCH (09:00)
[2017-02-25] MEDS ORDERED: ATENOLOL 25 MG TAB PO SCH (09:00)
[2017-02-25] MEDS ORDERED: AZITHROMYCIN 250 MG TAB PO SCH (09:00)
[2017-02-25] MEDS ORDERED: NON-FORMULARY DRUG (Omega-3 Fatty Acids [Omega-3] 1,000 MG) PO SCH (09:00)
[2017-02-25] MEDS: VIT A,C & E-LUTEIN-MINERALS 1 EACH TAB PO SCH (10:25)
--- NOTE | 2017-02-25 10:25 | CONS ---
DATE OF CONSULTATION: Elsie Ahn is a 66-year-old female who came in complaining of midback discomfort every time she took a deep breath. She denies any fever, chills, or rigors. REVIEW OF SYSTEMS: No fever, chills, or rigors. No cough or expectoration. No nausea, vomiting, or diarrhea. No hematuria or dysuria. No strokes or seizures. The pain was on the left side of the mid-back and then came around the chest to the front. Apparently, she is on Xarelto for history of DVT. PAST MEDICAL HISTORY: Asthma, COPD, adrenal insufficiency, morbid obesity and disc disease. PAST SURGERIES: Cholecystectomy, coronary angiography. FAMILY HISTORY: Colon cancer. Mother and daughter have DVT. SOCIAL HISTORY: She is a former smoker, occasional alcohol use. Allergies to CEPHALOSPORINS, MOXIFLOXACIN, PENICILLINS and BLACKBERRY. Medication list was reviewed and is documented in the chart includes: Zocor, atenolol, Lasix., potassium, niacin, Xarelto. On examination, her blood pressure is normal, 106/51 mmHg, respirations are normal. Pulse rate is in the 70s, afebrile at 98.6 degrees Fahrenheit. Breath sounds are reduced bilaterally and bilateral scattered rhonchi noted. Heart sounds S1, S2 are normal. No murmur. No gallops. No JVD, thyromegaly. Extremities are warm. No edema. Abdomen is soft, nontender. A 12-lead ECG is normal. No ST segment abnormalities. Labs are reviewed. Cardiac enzymes are normal. LDL is 66. Amylase and lipase are normal. CT scan did not show any evidence of any central pulmonary emboli. IMPRESSION: 1. Atypical discomfort in the chest and back, pleuritic in nature. 2. Morbid obesity. 3. Hypertension. 4. No evidence for acute myocardial infarction. 5. No evidence for central pulmonary embolism, she uses Xarelto. SUGGEST: From a cardiac standpoint, I agree with the medical assessment that this does not appear to be coronary in nature. A 2-D echo and Doppler study will be ordered. She may go home from a cardiac standpoint and follow up with Dr. Fang who is her primary die maintenance in the next 2 weeks or so for further evaluation.
[2017-02-25] MEDS ORDERED: NIACIN TR 500 MG CAPSULE.ER PO SCH (12:00)
[2017-02-25 12:01] VITALS: BP 91/83; PULSE 81; TEMP 98.4
--- NOTE | 2017-02-25 12:35 | ECHOF ---
Referral Reason:chest pain MEASUREMENTS -------- HEIGHT: 154.9 cm WEIGHT: 108.0 kg BP: 106/51 IVSd: 1.6 cm (0.6 - 1.1) LVIDd: 4.3 cm (3.9 - 5.3) LVPWd: 1.8 cm (0.6 - 1.1) IVSs: 1.8 cm LVIDs: 2.4 cm LVPWs: 1.9 cm Ao Diam: 2.9 cm (2.0 - 3.7) AV Cusp: 1.7 cm (1.5 - 2.6) LA Diam: 2.6 cm (2.7 - 3.8) MV EXCURSION: 17.354 mm (> 18.000) MV EF SLOPE: 92 mm/s (70 - 150) EPSS: 0.7 cm MV E Uziel: 0.59 m/s MV DecT: 312 ms MV A Uziel: 0.76 m/s MV E/A Ratio: 0.77 RAP: 5.00 mmHg RVSP: 15.28 mmHg FINDINGS -------- Sinus rhythm. This was a technically adequate study. The left ventricular size is normal. There is moderate concentric left ventricular hypertrophy. Overall left ventricular systolic function is normal with, an EF between 55 - 60 %. The right ventricle is normal in size and function. The left atrium is normal in size. The right atrium is normal in size. The aortic valve was not well visualized. The mitral valve is normal. There is trace mitral regurgitation. Trace tricuspid regurgitation present. The right ventricular systolic pressure, as measured by Doppler, is 15.28mmHg. The pulmonic valve was not well visualized. The aortic root, ascending aorta and aortic arch are normal. Echo free space may represent effusion or a pericardial fat pad. CONCLUSIONS -------- 1. Sinus rhythm. 2. The pulmonic valve was not well visualized. 3. The aortic root, ascending aorta and aortic arch are normal. 4. Echo free space may represent effusion or a pericardial fat pad. 5. This was a technically adequate study. 6. There is moderate concentric left ventricular hypertrophy. 7. Overall left ventricular systolic function is normal with, an EF between 55 - 60 %. 8. The left atrium is normal in size. 9. The aortic valve was not well visualized. 10. There is trace mitral regurgitation. 11. Trace tricuspid regurgitation present. 12. The right ventricular systolic pressure, as measured by Doppler, is 15.28mmHg. FLOOR RUNNER: Lizz Jones RDCS
--- NOTE | 2017-02-26 20:15 | DS ---
DATE OF ADMISSION: 02/24/2017 DATE OF DISCHARGE: 02/25/2017 FINAL DIAGNOSES: 1. Upper and mid back, possibly musculoskeletal origin; myocardial infarction ruled out. 2. History of adrenal insufficiency. 3. Irritable bowel syndrome. 4. Migraine. 5. History of gastroesophageal reflux disease. 6. Hyperlipidemia. 7. History of degenerative joint disease. 8. History of chronic obstructive pulmonary disease. 9. History of lumbar radiculopathy. 10. History of tracheobronchomalacia. 11. History of diverticulitis. 12. History of multiple bronchoscopies in the past. 13. History of pulmonary embolism in the past. 14. History of thyroid disorder. DISCHARGE DISPOSITION: Patient will be discharged in stable condition with guarded prognosis. HISTORY OF PRESENT ILLNESS: This 66-year-old woman with a past medical history of multiple medical problems was admitted with back pain radiating to the front of the chest. Myocardial infarction was ruled out. The spiral CT scan was negative for pulmonary embolism. Seen by cardiology. The patient improved significantly. Musculoskeletal chest pain was suspected. The patient was recommended outpatient followup. On exam, vitals are stable. Patient symptomatic. CARDIOVASCULAR SYSTEM: S1, S2 muffled. RESPIRATORY SYSTEM: Breath sounds diminished at the bases. A few rhonchi. ABDOMEN: Soft. NERVOUS SYSTEM: No focal deficit. DISCHARGE ADVICE AND MEDICATIONS: 1. Diet is cardiac. 2. Activity limited until followup. 3. Follow up with Dr. Kacey Pelayo in 2 to 3 days. 4. Follow up with Cardiology as recommended. 5. Ventolin 2 puffs q.6 p.r.n. 6. Tenormin 25 mg each morning. 7. Zithromax 250 mg p.o. Saturday, Saturday, Saturday as before. 8. Baclofen 5 to 10 mg t.i.d. p.r.n. 9. Butalb/acetaminophen/caffeine 1 tablet q.4 p.r.n. 10. Calcium carbonate with vitamin 2 tablets p.o. p.r.n. 11. Zyrtec 10 mg daily p.r.n. 12. Colace 100 mg p.o. daily. 13. Esomeprazole 40 mg each morning. 14. Flovent 2 puffs b.i.d. p.r.n. 15. Lasix 20 mg p.o. daily. 16. Neurontin 400 mg p.o. b.i.d. 17. Hair and Nails 2 tablets p.o. daily. 18. Cortef 5 mg p.o. daily. 19. Cortef 15 mg p.o. daily. 20. Vistaril 50 mg p.o. daily. 21. Albuterol, Atrovent updrafts q.i.d. and p.r.n. 22. Synthroid 112 mcg p.o. each morning. 23. Claritin 10 mg p.o. daily. 24. Multivitamins 1 p.o. daily. 25. Niacin 500 mg p.o. daily. 26. [place]-3 fatty acids 1000 mg p.o. daily. 27. Oxycodone 7.5 mg b.i.d. p.r.n. 28. Klor-Con 10 mEq p.o. daily. 29. Xarelto 20 mg each morning. 30. Serevent 1 puff b.i.d. 31. Zocor 10 mg at bedtime. 32. Coenzyme Q 200 mg p.o. daily. 33. Vitamin C, E, zinc, copper 1 p.o. b.i.d. 34. Ambien 5 mg at bedtime p.r.n. Once again, the patient will be discharged in stable condition with guarded prognosis. MTDD
== END 2017-02-25 12:24 | disposition home or self-care (01) ==
LOC: EC 09:55 → 3OBS 12:46
PROVIDERS: ADMIT Internal Medicine; ATTEND Internal Medicine
DX: R07.89 Other chest pain (principal); J44.9 Chronic obstructive pulmonary disease, unspecified; J45.909 Unspecified asthma, uncomplicated; E78.5 Hyperlipidemia, unspecified; M19.90 Unspecified osteoarthritis, unspecified site; K21.9 Gastro-esophageal reflux disease without esophagitis; M79.7 Fibromyalgia; E07.9 Disorder of thyroid, unspecified; K58.9 Irritable bowel syndrome, unspecified; G43.909 Migraine, unspecified, not intractable, without status migrainosus; K44.9 Diaphragmatic hernia without obstruction or gangrene; M48.06 Spinal stenosis, lumbar region; M85.80 Other specified disorders of bone density and structure, unspecified site; M51.16 Intervertebral disc disorders with radiculopathy, lumbar region; I10 Essential (primary) hypertension; E66.01 Morbid (severe) obesity due to excess calories; E27.40 Unspecified adrenocortical insufficiency; G89.29 Other chronic pain; H35.30 Unspecified macular degeneration; Z87.891 Personal history of nicotine dependence; Z82.49 Family history of ischemic heart disease and other diseases of the circulatory system; Z86.711 Personal history of pulmonary embolism; Z79.01 Long term (current) use of anticoagulants; Z79.899 Other long term (current) drug therapy; Z88.1 Allergy status to other antibiotic agents; Z88.3 Allergy status to other anti-infective agents; Z88.0 Allergy status to penicillin; Z91.018 Allergy to other foods
CPT/HCPCS: 96374 ×2; 99285 ×2; 36415; 94640 ×4; 93005; 93306; 85379; 83880; 80061; 80053; 80048; 82150; 82550; 82553; 83690; 83735; 84484; 85025 ×2; 85610; 85730; 71275; G0378 ×2; J2270; Q9967

== ENCOUNTER 2017-03-06 00:24 | Emergency (ER) | payer MEDICARE, BC ==
[2017-03-06 00:30] VITALS: TEMP 98.7
[2017-03-06] MEDS ORDERED: ONDANSETRON 4 MG/2 ML VIAL IVP STA (00:53)
[2017-03-06] MEDS ORDERED: HYDROmorphone 1 MG/ML 1 ML SYRINGE IVP STA ×2 (00:53→02:02)
[2017-03-06] MEDS ORDERED: SODIUM CHLORIDE 0.9% 1,000 ML IV STA (00:53)
--- NOTE | 2017-03-06 00:55 | ED ---
Abdominal Pain HPI - General Chief Complaint: Abdominal Pain Stated Complaint: LLQ/Back Pain Time Seen by Provider: 03/06/17 00:39 Source: patient, RN notes reviewed Mode of arrival: wheelchair Limitations: no limitations - History of Present Illness Initial Comments: 66-year-old male presents to the emergency Department chief complaint of left- sided abdominal pain that radiates to the back. Patient had a similar the past few weeks on and off. Patient went to her family care doctor today and they informed her to take MiraLAX. Patient denies any changes in bowel or bladder habits. Patient denies any nausea vomiting. Patient states the pain continues to worsen so she thought that she should be evaluated. Patient denies any recent fever, chills, shortness of breath, chest pain, nausea vomiting, numbness or tingling, dysuria or hematuria, constipation or diarrhea, headaches or visual changes, or any other current symptoms. - Related Data Home Medications Medication Instructions Recorded Confirmed Simvastatin [Zocor] 10 mg PO HS 04/27/14 03/06/17 Atenolol [Tenormin] 25 mg PO QAM 10/19/14 03/06/17 Fluticasone Propionate [Flovent 2 puff INHALATION RT-BID 10/19/14 03/06/17 Hfa 220MCG] Furosemide [Lasix] 20 mg PO DAILY PRN 10/19/14 03/06/17 Potassium Chloride [Klor-Con 10] 10 meq PO DAILY PRN 10/19/14 03/06/17 Salmeterol Xinafoate [Serevent 1 puff INHALATION RT-BID 10/19/14 03/06/17 Diskus] Albuterol Inhaler [Ventolin Hfa 2 puff INHALATION RT-Q6H PRN 11/05/14 03/06/17 Inhaler] Niacin 500 mg PO DAILY@1200 03/08/15 03/06/17 [place]-3 Fatty Acids [[place]-3] 1,000 mg PO DAILY #0 03/08/15 03/06/17 Calcium Carbonate/Vitamin D3 2 tab PO PC-SUPPER 06/25/15 03/06/17 [Calcium 600-Vit D3 400 Tablet] Levothyroxine Sodium [Synthroid] 112 mcg PO QAM 09/15/15 03/06/17 Rivaroxaban [Xarelto] 20 mg PO QAM 11/15/15 03/06/17 Cetirizine HCl [Zyrtec] 10 mg PO DAILY PRN 01/27/16 03/06/17 Hair And Nails 2 tab PO DAILY@1200 01/27/16 03/06/17 Esomeprazole Magnesium [NexIUM] 40 mg PO QAM 04/05/16 03/06/17 Multivitamin [Multivitamins Adult 2 tab PO DAILY 05/07/16 03/06/17 Gummies] Loratadine [Claritin] 10 mg PO DAILY PRN 07/16/16 03/06/17 Zolpidem [Ambien] 5 mg PO HS PRN 07/16/16 03/06/17 Azithromycin [Zithromax] 250 mg PO MOWEFR 08/08/16 03/06/17 Ipratropium Nebulized [Atrovent 0.5 mg INHALATION RT-TID PRN 01/09/17 03/06/17 Nebulized] Vit C/E/Zn/Coppr/Lutein/Zeaxan 1 cap PO BID 01/09/17 03/06/17 [Preservision Areds 2 Softgel] Baclofen 5 - 10 mg PO TID PRN 02/24/17 03/06/17 Butalb/APAP/Caff 50-325-40Mg 1 tab PO Q4H PRN 02/24/17 03/06/17 [Fioricet 50-325-40] Docusate [Colace] 100 mg PO DAILY PRN 02/24/17 03/06/17 Hydrocortisone [Cortef] 5 mg PO DAILY@1500 02/24/17 03/06/17 Hydrocortisone [Cortef] 15 mg PO DAILY 02/24/17 03/06/17 Ipratropium-Albuterol Nebulize 3 ml INHALATION RT-QID PRN 02/24/17 03/06/17 [Duoneb 0.5 mg-3 mg/3 ml Soln] Ubidecarenone [Co Q-10] 200 mg PO DAILY 02/24/17 03/06/17 hydrOXYzine PAMOATE [Vistaril] 50 mg PO DAILY PRN 02/24/17 03/06/17 Previous Rx's Medication Instructions Recorded Gabapentin [Neurontin] 400 mg PO BID #60 cap 02/06/17 oxyCODONE-APAP 7.5-325MG [Percocet 1 tab PO BID PRN #60 tab 02/06/17 7.5-325 mg] Nitrofurantoin Macrocrystal 100 mg PO BID #14 cap 03/06/17 [Macrodantin] Allergies Allergy/AdvReac Type Severity Reaction Status Date / Time cefuroxime axetil Allergy Dyspnea Verified 02/24/17 10:49 [From Ceftin] moxifloxacin HCl Allergy Dyspnea Verified 02/24/17 10:49 [From Avelox] Penicillins Allergy Dyspnea Verified 02/24/17 10:49 rofecoxib [From Vioxx] Allergy Dyspnea Verified 02/24/17 10:49 blackberry Allergy Unknown Uncoded 02/24/17 10:05 Review of Systems ROS Statement: Those systems with pertinent positive or pertinent negative responses have been documented in the HPI. ROS Other: All systems not noted in ROS Statement are negative. 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 MTHFR GENE. STUCCO KERATOSIS, past fxs of L foot and R ankle, sciatic problems, diverticulitis History of Any Multi-Drug Resistant Organisms: None Reported Past Surgical History: Section, Cholecystectomy, Heart Catheterization , Orthopedic Surgery Additional Past Surgical History / Comment(s): RT ANKLE- PLATE & SCREWS, COLONOSCOPIES, EGDs, Bronchial Thermoplasty X3., KENDALL CATARACTS with lens implants. DEVIATED SEPTUM SURGERY. MULTIPLE BRONCHOSCOPIES, ABLATION of lungs. Past Anesthesia/Blood Transfusion Reactions: Family History of Problems w/ Anesthesia, Postoperative Nausea & Vomiting (PONV) Additional Past Anesthesia/Blood Transfusion Reaction / Comment(s): Pt has never received blood. DAUGHTER PONV Past Psychological History: No Psychological Hx Reported Additional Psychological History / Comment(s): . Smoking Status: Former smoker Past Alcohol Use History: None Reported Additional Past Alcohol Use History / Comment(s): quit smoking in 1989, smoked 1 /2 ppd x 10 years Past Drug Use History: None Reported - Past Family History Father Family Medical History: Cancer Additional Family Medical History / Comment(s): colon Mother Family Medical History: Congestive Heart Failure (CHF) Additional Family Medical History / Comment(s): emphysema Daughter(s) Family Medical History: Deep Vein Thrombosis (DVT) General Exam Limitations: no limitations General appearance: alert, in no apparent distress Head exam: Present: atraumatic, normocephalic, normal inspection ENT exam: Present: normal exam, mucous membranes moist Neck exam: Present: normal inspection. Absent: tenderness, meningismus, lymphadenopathy Respiratory exam: Present: normal lung sounds bilaterally. Absent: respiratory distress, wheezes, rales, rhonchi, stridor Cardiovascular Exam: Present: regular rate, normal rhythm, normal heart sounds. Absent: systolic murmur, diastolic murmur, rubs, gallop, clicks GI/Abdominal exam: Present: soft, tenderness (Left upper quadrant), normal bowel sounds. Absent: distended, guarding, rebound, rigid Neurological exam: Present: alert, oriented X3 Psychiatric exam: Present: normal affect, normal mood Skin exam: Present: warm, dry, intact, normal color. Absent: rash Course Vital Signs 03/06/17 03/06/17 00:27 01:25 Temperature 98.7 F Pulse Rate 90 Respiratory 18 20 Rate Blood Pressure 138/101 122/56 O2 Sat by Pulse 97 Oximetry Medical Decision Making - Medical Decision Making 66-year-old female presents emergency room chief complaint of left-sided abdominal pain. This time patient's laboratory is reviewed. There is suspicion for UTI. We will start patient on antibiotics. We discussed close follow-up with family doctor to return parameters. We discussed all the patient 's questions. She states she understood and she is negative plan. She will be discharged. - Lab Data Result diagrams: 03/06/17 01:05 03/06/17 01:05 Lab Results 03/06/17 03/06/17 03/06/17 Range/Units 01:05 01:05 01:05 WBC 7.9 (3.8-10.6) k/uL RBC 4.59 (3.80-5.40) m/uL Hgb 13.9 (11.4-16.0) gm/dL Hct 43.4 (34.0-46.0) % MCV 94.7 (80.0-100.0) fL MCH 30.2 (25.0-35.0) pg MCHC 31.9 (31.0-37.0) g/dL RDW 13.6 (11.5-15.5) % Plt Count 210 (150-450) k/uL Neutrophils % (Manual) 63.0 % Band Neutrophils % 7.0 % Lymphocytes % (Manual) 25.0 % Monocytes % (Manual) 3.0 % Eosinophils % (Manual) 2.0 % Neutrophils # (Manual) 5.5 (1.3-7.7) k/uL Lymphocytes # (Manual) 2.0 (1.0-4.8) k/uL Monocytes # (Manual) 0.2 (0-1.0) k/uL Eosinophils # (Manual) 0.2 (0-0.7) k/uL Nucleated RBCs 0 (0-0) /100 WBC Large Platelets Present Polychromasia Present Anisocytosis (manual) Present Sodium 142 (137-145) mmol/L Potassium 4.2 (3.5-5.1) mmol/L Chloride 108 H (98-107) mmol/L Carbon Dioxide 26 (22-30) mmol/L Anion Gap 8 mmol/L BUN 23 H (7-17) mg/dL Creatinine 0.80 (0.52-1.04) mg/dL Est GFR (MDRD) Af Amer >60 (>60 ml/min/1.73 sqM) Est GFR (MDRD) Non-Af >60 (>60 ml/min/1.73 sqM) Glucose 106 H (74-99) mg/dL Plasma Lactic Acid Toby 1.1 (0.7-2.0) mmol/L Calcium 9.9 (8.4-10.2) mg/dL Total Bilirubin 1.0 (0.2-1.3) mg/dL AST 38 H (14-36) U/L ALT 45 (9-52) U/L Alkaline Phosphatase 98 (38-126) U/L Total Protein 7.0 (6.3-8.2) g/dL Albumin 4.3 (3.5-5.0) g/dL Amylase 84 (30-110) U/L Lipase 118 (23-300) U/L Urine Color Urine Appearance (Clear) Urine pH (5.0-8.0) Ur Specific [place] (1.001-1.035) Urine Protein (Negative) Urine Glucose (UA) (Negative) Urine Ketones (Negative) Urine Blood (Negative) Urine Nitrite (Negative) Urine Bilirubin (Negative) Urine Urobilinogen (<2.0) mg/dL Ur Leukocyte Esterase (Negative) Urine RBC (0-5) /hpf Urine WBC (0-5) /hpf Urine WBC Clumps (None) /hpf Ur Squamous Epith Cells (0-4) /hpf Urine Bacteria (None) /hpf Hyaline Casts (0-2) /lpf Urine Mucus (None) /hpf 03/06/17 Range/Units 01:05 WBC (3.8-10.6) k/uL RBC (3.80-5.40) m/uL Hgb (11.4-16.0) gm/dL Hct (34.0-46.0) % MCV (80.0-100.0) fL MCH (25.0-35.0) pg MCHC (31.0-37.0) g/dL RDW (11.5-15.5) % Plt Count (150-450) k/uL Neutrophils % (Manual) % Band Neutrophils % % Lymphocytes % (Manual) % Monocytes % (Manual) % Eosinophils % (Manual) % Neutrophils # (Manual) (1.3-7.7) k/uL Lymphocytes # (Manual) (1.0-4.8) k/uL Monocytes # (Manual) (0-1.0) k/uL Eosinophils # (Manual) (0-0.7) k/uL Nucleated RBCs (0-0) /100 WBC Large Platelets Polychromasia Anisocytosis (manual) Sodium (137-145) mmol/L Potassium (3.5-5.1) mmol/L Chloride (98-107) mmol/L Carbon Dioxide (22-30) mmol/L Anion Gap mmol/L BUN (7-17) mg/dL Creatinine (0.52-1.04) mg/dL Est GFR (MDRD) Af Amer (>60 ml/min/1.73 sqM) Est GFR (MDRD) Non-Af (>60 ml/min/1.73 sqM) Glucose (74-99) mg/dL Plasma Lactic Acid Toby (0.7-2.0) mmol/L Calcium (8.4-10.2) mg/dL Total Bilirubin (0.2-1.3) mg/dL AST (14-36) U/L ALT (9-52) U/L Alkaline Phosphatase (38-126) U/L Total Protein (6.3-8.2) g/dL Albumin (3.5-5.0) g/dL Amylase (30-110) U/L Lipase (23-300) U/L Urine Color Yellow Urine Appearance Clear (Clear) Urine pH 5.0 (5.0-8.0) Ur Specific [place] 1.021 (1.001-1.035) Urine Protein Negative (Negative) Urine Glucose (UA) Negative (Negative) Urine Ketones Negative (Negative) Urine Blood Negative (Negative) Urine Nitrite Negative (Negative) Urine Bilirubin Negative (Negative) Urine Urobilinogen <2.0 (<2.0) mg/dL Ur Leukocyte Esterase Small H (Negative) Urine RBC 1 (0-5) /hpf Urine WBC 4 (0-5) /hpf Urine WBC Clumps Rare H (None) /hpf Ur Squamous Epith Cells 2 (0-4) /hpf Urine Bacteria Rare H (None) /hpf Hyaline Casts 3 H (0-2) /lpf Urine Mucus Occasional H (None) /hpf - Radiology Data Radiology results: report reviewed, image reviewed Disposition Clinical Impression: UTI (urinary tract infection), Abdominal pain Disposition: HOME SELF-CARE Condition: Stable Instructions: Abdominal Pain (ED), Urinary Tract Infection in Women (ED) Additional Instructions: Please use medication as discussed. Please follow up with family doctor if symptoms have not improved over the next two days. Please return to the emergency room if your symptoms increase or worsen or for any other concerns. Prescriptions: Nitrofurantoin Macrocrystal [Macrodantin] 100 mg PO BID #14 cap Referrals: Kacey Pelayo MD [Primary Care Provider] - 1-2 days Time of Disposition: 02:42
[2017-03-06 01:18] LABS: Aty Lym Flag Slight; CHCM 31.9; HCT 43.4 % (34.0-46.0); HDW 2.24; HGB 13.9 gm/dL (11.4-16.0); MCH 30.2 pg (25.0-35.0); MCHC 31.9 g/dL (31.0-37.0); MCV 94.7 fL (80.0-100.0); Mean Platelet Volume 7.6; RBC 4.59 m/uL (3.80-5.40); RDW 13.6 % (11.5-15.5); WBC 7.9 k/uL (3.8-10.6); WBC (Perox) 7.95
[2017-03-06 01:28] LABS: ALT 45 U/L (9-52); AST 38 U/L (14-36); Alkaline Phosphatase 98 U/L (38-126); Amylase 84 U/L (30-110); Anion Gap 8 mmol/L; Blood Urea Nitrogen 23 mg/dL (7-17); Calcium 9.9 mg/dL (8.4-10.2); Carbon Dioxide 26 mmol/L (22-30); Chloride 108 mmol/L (98-107); Glucose 106 mg/dL (74-99); Non-African American GFR(MDRD) >60 (>60 ml/min/1.73 sqM); Potassium 4.2 mmol/L (3.5-5.1); Sodium 142 mmol/L (137-145)
[2017-03-06 01:41] LABS: Appearance,Urine Clear (Clear); Bacteria,Urine Rare /hpf; Bilirubin,Urine Negative (Negative); Glucose,Urine (UA) Negative (Negative); Ketones,Urine Negative (Negative); Leukocyte Esterase,Urine Small (Negative); Mucus,Urine Occasional /hpf; Nitrite,Urine Negative (Negative); Particle Count 2934; Protein,Urine Negative (Negative); RBC,Urine 1 /hpf (0-5); Specific Gravity,Urine 1.021 (1.001-1.035); Squamous Epithelial Cell,Urine 2 /hpf (0-4); UA Billing (MACRO vs. MICRO) MICRO; Urobilinogen,Urine <2.0 mg/dL (<2.0); WBC,Urine 4 /hpf (0-5)
[2017-03-06] MEDS ORDERED: RX INFO: IV CONTRAST WAS GIVEN 1 EACH MISC MISCELLANE PRN (01:41)
[2017-03-06 02:12] LABS: Add Differential Manual Differential
[2017-03-06 02:15] LABS: Nucleated Red Blood Cells 0 /100 WBC (0-0); Total Cells Counted 100
[2017-03-06 02:21] LABS: Large Platelets Present
[2017-03-06 02:22] LABS: Polychromasia Present
--- NOTE | 2017-03-06 02:38 | CT ---
EXAM: CT Abdomen and Pelvis With Intravenous Contrast CLINICAL HISTORY: Left lower quadrant pain radiating to the back. TECHNIQUE: Axial computed tomography images of the abdomen and pelvis with intravenous contrast. Coronal and sagittal reformatted images were created and reviewed. DOSE INFORMATION: CTDI is 31.20, 34.50 mGy and DLP is 2356.20 mGy-cm. This CT exam was performed using one or more of the following dose reduction techniques: automated exposure control, adjustment of the mA and/or kV according to patient size, and/or use of iterative reconstruction technique. CONTRAST: 100 mL of Omnipaque 300 administered intravenously. COMPARISON: CT dated 07/23/2016. FINDINGS: Lower thorax: No acute findings. ABDOMEN: Liver: Unremarkable. No mass. Gallbladder and bile ducts: Cholecystectomy. No biliary dilation. Pancreas: Mild fatty infiltration of the pancreas. No peripancreatic fluid or inflammation. Spleen: Unremarkable. No splenomegaly. Adrenals: Unremarkable. No mass. Kidneys and ureters: Unremarkable. No hydronephrosis or ureteral calculus. No solid mass. Stomach and bowel: Unremarkable. No bowel obstruction. No significant bowel wall thickening. Appendix: No findings to suggest acute appendicitis. PELVIS: Bladder: Unremarkable. No mass or wall thickening. Reproductive: Unremarkable as visualized. ABDOMEN and PELVIS: Intraperitoneal space: No free air. No ascites or significant fluid collection. Bones/joints: Degenerative changes of the spine. Stable anterolisthesis at L4-5. No acute fracture. Soft tissues: No significant soft tissue abnormality. Vasculature: Mild atherosclerosis. No abdominal aortic aneurysm. Lymph nodes: No enlarged lymph nodes. IMPRESSION: 1. No evidence of acute abnormality in the abdomen or pelvis to account for symptoms. 2. Cholecystectomy. 3. Degenerative changes of the spine, similar compared to prior CT.
[2017-03-06] MEDS ORDERED: NITROFURANTOIN MONOHYD/M-CRYST 100 MG CAP PO STA (02:41)
[2017-03-06 03:14] VITALS: BP 141/70; PULSE 16; RESP 68
== END 2017-03-06 03:12 | disposition home or self-care (01) ==
LOC: EC 00:24
DX: N39.0 Urinary tract infection, site not specified (principal); R10.12 Left upper quadrant pain; J44.9 Chronic obstructive pulmonary disease, unspecified; M79.7 Fibromyalgia; K21.9 Gastro-esophageal reflux disease without esophagitis; E78.5 Hyperlipidemia, unspecified; M19.90 Unspecified osteoarthritis, unspecified site; E07.9 Disorder of thyroid, unspecified; K58.9 Irritable bowel syndrome, unspecified; M85.80 Other specified disorders of bone density and structure, unspecified site; Z86.711 Personal history of pulmonary embolism; Z87.891 Personal history of nicotine dependence; Z79.51 Long term (current) use of inhaled steroids; Z79.01 Long term (current) use of anticoagulants; Z79.899 Other long term (current) drug therapy; Z88.0 Allergy status to penicillin; Z88.1 Allergy status to other antibiotic agents; Z88.8 Allergy status to other drugs, medicaments and biological substances; Z91.018 Allergy to other foods; Z90.49 Acquired absence of other specified parts of digestive tract
CPT/HCPCS: 99284; 96374; 96375; 96376; 96361 ×2; 36415; 80053; 82150; 83605; 83690; 85025; 81001; 87040; 87086; 74177; J2405; J1170; Q9967

== ENCOUNTER 2017-03-19 20:51 | Emergency (ER) | payer MEDICARE, BC ==
[2017-03-19 20:55] VITALS: RESP 18
[2017-03-19] MEDS ORDERED: MORPHINE SULFATE 4 MG/ML SYRINGE IVP STA (21:20)
[2017-03-19] MEDS ORDERED: SODIUM CHLORIDE 0.9% 500 ML IV STA (21:20)
--- NOTE | 2017-03-19 21:23 | ED ---
General Adult HPI - General Chief complaint: Abdominal Pain Stated complaint: abdominal & lower back pain Time Seen by Provider: 03/19/17 20:59 Source: patient, RN notes reviewed, old records reviewed Mode of arrival: wheelchair Limitations: no limitations - History of Present Illness Initial comments: 66-year-old female with history of chronic pain presenting for left upper abdominal pain that radiates to her left back. Patient states pain began a few days ago and has been gradually worsening. She states she was seen several weeks ago in the diagnosed with UTI with similar pains that time. She states the pain seemed to improve over the following week as she took the antibiotics but never fully resolved. She states she is now having severe pain. She did take some of her Percocets which took the edge off the pain. She denies any fevers or chills. She denies any chest pain or shortness of breath. She denies any history of kidney stones. - Related Data Home Medications Medication Instructions Recorded Confirmed Simvastatin [Zocor] 10 mg PO HS 04/27/14 03/19/17 Atenolol [Tenormin] 25 mg PO QAM 10/19/14 03/19/17 Fluticasone Propionate [Flovent 2 puff INHALATION RT-BID 10/19/14 03/19/17 Hfa 220MCG] Furosemide [Lasix] 20 mg PO DAILY PRN 10/19/14 03/19/17 Potassium Chloride [Klor-Con 10] 10 meq PO DAILY PRN 10/19/14 03/19/17 Salmeterol Xinafoate [Serevent 1 puff INHALATION RT-BID 10/19/14 03/19/17 Diskus] Albuterol Inhaler [Ventolin Hfa 2 puff INHALATION RT-Q6H PRN 11/05/14 03/19/17 Inhaler] Niacin 500 mg PO DAILY@1200 03/08/15 03/19/17 [place]-3 Fatty Acids [[place]-3] 1,000 mg PO DAILY #0 03/08/15 03/19/17 Calcium Carbonate/Vitamin D3 2 tab PO PC-SUPPER 06/25/15 03/19/17 [Calcium 600-Vit D3 400 Tablet] Levothyroxine Sodium [Synthroid] 112 mcg PO QAM 09/15/15 03/19/17 Rivaroxaban [Xarelto] 20 mg PO QAM 11/15/15 03/19/17 Cetirizine HCl [Zyrtec] 10 mg PO DAILY PRN 01/27/16 03/19/17 Hair And Nails 2 tab PO DAILY@1200 01/27/16 03/19/17 Esomeprazole Magnesium [NexIUM] 40 mg PO QAM 04/05/16 03/19/17 Multivitamin [Multivitamins Adult 2 tab PO DAILY 05/07/16 03/19/17 Gummies] Zolpidem [Ambien] 5 mg PO HS PRN 07/16/16 03/19/17 Azithromycin [Zithromax] 250 mg PO MOWEFR 08/08/16 03/19/17 Ipratropium Nebulized [Atrovent 0.5 mg INHALATION RT-TID PRN 01/09/17 03/19/17 Nebulized] Vit C/E/Zn/Coppr/Lutein/Zeaxan 1 cap PO BID 01/09/17 03/19/17 [Preservision Areds 2 Softgel] Baclofen 10 mg PO TID PRN 02/24/17 03/19/17 Butalb/APAP/Caff 50-325-40Mg 1 tab PO Q4H PRN 02/24/17 03/19/17 [Fioricet 50-325-40] Docusate [Colace] 100 mg PO DAILY PRN 02/24/17 03/19/17 Hydrocortisone [Cortef] 5 mg PO DAILY@1500 02/24/17 03/19/17 Hydrocortisone [Cortef] 15 mg PO QAM 02/24/17 03/19/17 Ipratropium-Albuterol Nebulize 3 ml INHALATION RT-QID PRN 02/24/17 03/19/17 [Duoneb 0.5 mg-3 mg/3 ml Soln] Ubidecarenone [Co Q-10] 200 mg PO DAILY 02/24/17 03/19/17 hydrOXYzine PAMOATE [Vistaril] 50 mg PO DAILY PRN 02/24/17 03/19/17 Gabapentin [Neurontin] 400 mg PO BID 03/19/17 03/19/17 Previous Rx's Medication Instructions Recorded oxyCODONE-APAP 7.5-325MG [Percocet 1 tab PO BID PRN #60 tab 02/06/17 7.5-325 mg] Sulfamethox-Tmp 800-160Mg [Bactrim 1 each PO Q12HR #14 tab 03/20/17 Ds] Allergies Allergy/AdvReac Type Severity Reaction Status Date / Time cefuroxime axetil Allergy Dyspnea Verified 03/19/17 21:37 [From Ceftin] moxifloxacin HCl Allergy Dyspnea Verified 03/19/17 21:37 [From Avelox] Penicillins Allergy Dyspnea Verified 03/19/17 21:37 rofecoxib [From Vioxx] Allergy Dyspnea Verified 03/19/17 21:37 blackberry Allergy Unknown Uncoded 03/19/17 20:55 Review of Systems ROS Statement: Those systems with pertinent positive or pertinent negative responses have been documented in the HPI. ROS Other: All systems not noted in ROS Statement are negative. 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 MTHFR GENE. STUCCO KERATOSIS, past fxs of L foot and R ankle, sciatic problems, diverticulitis History of Any Multi-Drug Resistant Organisms: None Reported Past Surgical History: Section, Cholecystectomy, Heart Catheterization , Orthopedic Surgery Additional Past Surgical History / Comment(s): RT ANKLE- PLATE & SCREWS, COLONOSCOPIES, EGDs, Bronchial Thermoplasty X3., MINH CATARACTS with lens implants. DEVIATED SEPTUM SURGERY. MULTIPLE BRONCHOSCOPIES, ABLATION of lungs. Past Anesthesia/Blood Transfusion Reactions: Family History of Problems w/ Anesthesia, Postoperative Nausea & Vomiting (PONV) Additional Past Anesthesia/Blood Transfusion Reaction / Comment(s): Pt has never received blood. DAUGHTER PONV Past Psychological History: No Psychological Hx Reported Additional Psychological History / Comment(s): . Smoking Status: Former smoker Past Alcohol Use History: None Reported Additional Past Alcohol Use History / Comment(s): quit smoking in 1989, smoked 1 /2 ppd x 10 years Past Drug Use History: None Reported - Past Family History Father Family Medical History: Cancer Additional Family Medical History / Comment(s): colon Mother Family Medical History: Congestive Heart Failure (CHF) Additional Family Medical History / Comment(s): emphysema Daughter(s) Family Medical History: Deep Vein Thrombosis (DVT) General Exam - General Exam Comments Initial Comments: General: Awake and Alert. No acute distress. Does not appear acutely ill. Obese. Eyes: MIGDALIA, EOM intact. No nystagmus. No scleral icterus. HENT: Atraumatic, normocephalic. Mucous membranes moist. Trachea midline. Neck: The neck is supple, there is no tenderness or JVD. Cardiovascular: Regular rate and rhythm. No murmur, rub, or gallop is appreciated. Distal pulses intact. Respiratory: Lungs are clear to auscultation bilaterally. No wheezes, rales, rhonchi. No respiratory distress. Gastrointestinal: Soft, Nontender. No rebound or guarding. Non-distended. No masses or organomegaly noted. No CVA tenderness. Musculoskeletal: No tenderness. Normal ROM. No gross deformity. No strength deficits. Neurological: A&Ox3. CN II-XII grossly intact, There are no obvious motor or sensory deficits. Coordination appears grossly intact. Speech is normal. Skin: Skin is warm and dry and no rashes or lesions are noted. Psychiatric: Cooperative, appropriate mood & affect, normal judgment. Limitations: no limitations Course Vital Signs 03/19/17 03/20/17 20:53 00:08 Temperature 100.1 F H 98.4 F Pulse Rate 95 87 Respiratory 18 18 Rate Blood Pressure 123/74 108/59 O2 Sat by Pulse 95 98 Oximetry EKG Findings - EKG Comments: EKG Findings:: EKG 21:44. Normal sinus rhythm. Rate 83. LVH. No STEMI. Nonspecific EKG. Medical Decision Making - Medical Decision Making 66-year-old female presenting for abdominal pain. Abdominal exam without any significant pain elicited. No evidence of acute peritonitis. Patient states she is feeling very uncomfortable. Work and imaging was ordered. Per review of records patient and computed tomography scan 2 weeks ago which was grossly unremarkable. Lab work today is grossly unremarkable, with exception of mild LFT elevation which has been mildly elevated past. Lipase is negative. Abdominal ultrasound no acute process. UA with possible infection. Given this is not cleared since recent UA plan for treatment. Patient can tolerate Bactrim and was given the first dose in the ED. On reevaluation patient states her pain is feeling significantly improved. Updated on results and imaging. Discussed uncertain etiology of pain although reassuring findings workup today and given recent workup and CT imaging. She does have follow-up through pain management and currently is taking multiple pain medications. Recommend she continue to use these for pain. Discussed close follow-up with PCP. Discussed concerning signs symptoms for immediate return to the ED. Patient and agreeable with plan of discharge home. - Lab Data Result diagrams: 03/19/17 21:15 03/19/17 21:15 Lab Results 03/19/17 03/19/17 03/19/17 Range/Units 21:15 21:15 21:15 WBC 8.7 (3.8-10.6) k/uL RBC 4.46 (3.80-5.40) m/uL Hgb 13.3 (11.4-16.0) gm/dL Hct 42.4 (34.0-46.0) % MCV 94.9 (80.0-100.0) fL MCH 29.9 (25.0-35.0) pg MCHC 31.5 (31.0-37.0) g/dL RDW 13.4 (11.5-15.5) % Plt Count 210 (150-450) k/uL Neutrophils % 69 % Lymphocytes % 16 % Monocytes % 8 % Eosinophils % 2 % Basophils % 0 % Neutrophils # 6.0 (1.3-7.7) k/uL Lymphocytes # 1.4 (1.0-4.8) k/uL Monocytes # 0.7 (0-1.0) k/uL Eosinophils # 0.2 (0-0.7) k/uL Basophils # 0.0 (0-0.2) k/uL PT (9.0-12.0) sec INR (<1.1) Sodium 141 (137-145) mmol/L Potassium 4.2 (3.5-5.1) mmol/L Chloride 107 (98-107) mmol/L Carbon Dioxide 24 (22-30) mmol/L Anion Gap 10 mmol/L BUN 21 H (7-17) mg/dL Creatinine 0.70 (0.52-1.04) mg/dL Est GFR (MDRD) Af Amer >60 (>60 ml/min/1.73 sqM) Est GFR (MDRD) Non-Af >60 (>60 ml/min/1.73 sqM) Glucose 101 H (74-99) mg/dL Plasma Lactic Acid Toby 1.0 (0.7-2.0) mmol/L Calcium 9.5 (8.4-10.2) mg/dL Magnesium 2.1 (1.6-2.3) mg/dL Total Bilirubin 1.6 H (0.2-1.3) mg/dL AST 94 H (14-36) U/L ALT 85 H (9-52) U/L Alkaline Phosphatase 137 H (38-126) U/L Total Protein 7.0 (6.3-8.2) g/dL Albumin 4.1 (3.5-5.0) g/dL Lipase 108 (23-300) U/L Urine Color Urine Appearance (Clear) Urine pH (5.0-8.0) Ur Specific [place] (1.001-1.035) Urine Protein (Negative) Urine Glucose (UA) (Negative) Urine Ketones (Negative) Urine Blood (Negative) Urine Nitrite (Negative) Urine Bilirubin (Negative) Urine Urobilinogen (<2.0) mg/dL Ur Leukocyte Esterase (Negative) Urine RBC (0-5) /hpf Urine WBC (0-5) /hpf Ur Squamous Epith Cells (0-4) /hpf Amorphous Sediment (None) /hpf Urine Mucus (None) /hpf 03/19/17 03/19/17 Range/Units 21:15 22:30 WBC (3.8-10.6) k/uL RBC (3.80-5.40) m/uL Hgb (11.4-16.0) gm/dL Hct (34.0-46.0) % MCV (80.0-100.0) fL MCH (25.0-35.0) pg MCHC (31.0-37.0) g/dL RDW (11.5-15.5) % Plt Count (150-450) k/uL Neutrophils % % Lymphocytes % % Monocytes % % Eosinophils % % Basophils % % Neutrophils # (1.3-7.7) k/uL Lymphocytes # (1.0-4.8) k/uL Monocytes # (0-1.0) k/uL Eosinophils # (0-0.7) k/uL Basophils # (0-0.2) k/uL PT 12.6 H (9.0-12.0) sec INR 1.3 (<1.1) Sodium (137-145) mmol/L Potassium (3.5-5.1) mmol/L Chloride (98-107) mmol/L Carbon Dioxide (22-30) mmol/L Anion Gap mmol/L BUN (7-17) mg/dL Creatinine (0.52-1.04) mg/dL Est GFR (MDRD) Af Amer (>60 ml/min/1.73 sqM) Est GFR (MDRD) Non-Af (>60 ml/min/1.73 sqM) Glucose (74-99) mg/dL Plasma Lactic Acid Toby (0.7-2.0) mmol/L Calcium (8.4-10.2) mg/dL Magnesium (1.6-2.3) mg/dL Total Bilirubin (0.2-1.3) mg/dL AST (14-36) U/L ALT (9-52) U/L Alkaline Phosphatase (38-126) U/L Total Protein (6.3-8.2) g/dL Albumin (3.5-5.0) g/dL Lipase (23-300) U/L Urine Color Yellow Urine Appearance Cloudy H (Clear) Urine pH 5.5 (5.0-8.0) Ur Specific [place] 1.023 (1.001-1.035) Urine Protein Trace H (Negative) Urine Glucose (UA) Negative (Negative) Urine Ketones 2+ H (Negative) Urine Blood Negative (Negative) Urine Nitrite Negative (Negative) Urine Bilirubin Negative (Negative) Urine Urobilinogen <2.0 (<2.0) mg/dL Ur Leukocyte Esterase Small H (Negative) Urine RBC 1 (0-5) /hpf Urine WBC 9 H (0-5) /hpf Ur Squamous Epith Cells 4 (0-4) /hpf Amorphous Sediment Rare H (None) /hpf Urine Mucus Few H (None) /hpf - EKG Data -: EKG Interpreted by Pa EKG shows normal: sinus rhythm Rate: normal - Radiology Data Radiology results: report reviewed, image reviewed Disposition Clinical Impression: Nonspecific abdominal pain, UTI (urinary tract infection) Disposition: HOME SELF-CARE Condition: Stable Instructions: Urinary Tract Infection in Women (ED), Abdominal Pain (ED) Prescriptions: Sulfamethox-Tmp 800-160Mg [Bactrim Ds] 1 each PO Q12HR #14 tab Referrals: Kacey Pelayo MD [Primary Care Provider] - 1-2 days Time of Disposition: 00:12
[2017-03-19 21:30] LABS: Aty Lym Flag Slight; Basophils % (A) 0 %; CH 30.2; CHCM 31.9; Eosinophils # (A) 0.2 k/uL (0-0.7); Eosinophils % (A) 2 %; HCT 42.4 % (34.0-46.0); HDW 2.22; HGB 13.3 gm/dL (11.4-16.0); Luc % (Auto) 5; Lymphocytes # (A) 1.4 k/uL (1.0-4.8); Lymphocytes % (A) 16 %; MCH 29.9 pg (25.0-35.0); MCHC 31.5 g/dL (31.0-37.0); MCV 94.9 fL (80.0-100.0); Mean Platelet Volume 8.4; Monocytes # (A) 0.7 k/uL (0-1.0); Monocytes % (A) 8 %; Neutrophils % (A) 69 %; RBC 4.46 m/uL (3.80-5.40); RDW 13.4 % (11.5-15.5); WBC 8.7 k/uL (3.8-10.6); WBC (Perox) 8.81
[2017-03-19 21:37] LABS: INR 1.3 (<1.1); Prothrombin Time 12.6 sec (9.0-12.0)
[2017-03-19 21:39] LABS: ALT 85 U/L (9-52); AST 94 U/L (14-36); Alkaline Phosphatase 137 U/L (38-126); Anion Gap 10 mmol/L; Blood Urea Nitrogen 21 mg/dL (7-17); Calcium 9.5 mg/dL (8.4-10.2); Carbon Dioxide 24 mmol/L (22-30); Chloride 107 mmol/L (98-107); Glucose 101 mg/dL (74-99); Magnesium 2.1 mg/dL (1.6-2.3); Non-African American GFR(MDRD) >60 (>60 ml/min/1.73 sqM); Potassium 4.2 mmol/L (3.5-5.1); Sodium 141 mmol/L (137-145); Total Bilirubin 1.6 mg/dL (0.2-1.3)
[2017-03-19] MEDS ORDERED: HYDROmorphone 1 MG/ML 1 ML SYRINGE IVP STA (22:14)
[2017-03-19] MEDS ORDERED: ONDANSETRON 4 MG/2 ML VIAL IVP STA (22:38)
[2017-03-19 22:45] LABS: Amorphous Sediment,Urine Rare /hpf; Appearance,Urine Cloudy (Clear); Bilirubin,Urine Negative (Negative); Glucose,Urine (UA) Negative (Negative); Ketones,Urine 2+ (Negative); Leukocyte Esterase,Urine Small (Negative); Mucus,Urine Few /hpf; Nitrite,Urine Negative (Negative); PH, Urine 5.5 (5.0-8.0); Particle Count 4203; Protein,Urine Trace (Negative); RBC,Urine 1 /hpf (0-5); Specific Gravity,Urine 1.023 (1.001-1.035); Squamous Epithelial Cell,Urine 4 /hpf (0-4); UA Billing (MACRO vs. MICRO) MICRO; Urobilinogen,Urine <2.0 mg/dL (<2.0); WBC,Urine 9 /hpf (0-5)
--- NOTE | 2017-03-19 23:35 | US ---
INDICATION: Left-sided abdominal pain with elevated liver enzymes, history of cholecystectomy. TECHNIQUE: Real-time imaging of the abdomen is performed in transverse and longitudinal projections. COMPARISON: CT abdomen and pelvis 03/06/17 FINDINGS: EXAM MEASUREMENTS: Liver Length: 14.0 cm Gallbladder Wall: Surgically absent CBD: 0.4 cm Spleen: 7.4 cm Right Kidney: 9.3 x 4.5 x 4.1 cm Left Kidney: 9.5 x 5.6 x 4.2 cm Liver is normal in size and echogenicity without evidence of focal lesion. There is no intrahepatic biliary dilatation. Portal vein is patent and normally directed. Normal sonographic appearance of the gallbladder without cholelithiasis, sludge, wall thickening, pericholecystic fluid, or sonographic Conti sign. Normal common bile duct measuring 5.2 mm. No hydronephrosis or perinephric fluid collection. Normal appearance of the spleen. No ascites. Visualized portions of the pancreas, aorta, and IVC are unremarkable. IMPRESSION: Unremarkable abdominal ultrasound.
[2017-03-20 00:09] VITALS: BP 108/59; PULSE 87; TEMP 98.4
[2017-03-20] MEDS ORDERED: SULFAMETHOX-TMP 800-160MG 1 EACH TAB PO STA (00:11)
== END 2017-03-20 00:44 | disposition home or self-care (01) ==
LOC: EC 20:51
DX: R10.12 Left upper quadrant pain (principal); N39.0 Urinary tract infection, site not specified; J44.9 Chronic obstructive pulmonary disease, unspecified; J45.909 Unspecified asthma, uncomplicated; K21.9 Gastro-esophageal reflux disease without esophagitis; E78.5 Hyperlipidemia, unspecified; E07.9 Disorder of thyroid, unspecified; Z86.711 Personal history of pulmonary embolism; Z87.19 Personal history of other diseases of the digestive system; Z90.49 Acquired absence of other specified parts of digestive tract; Z87.891 Personal history of nicotine dependence; Z88.0 Allergy status to penicillin; Z88.8 Allergy status to other drugs, medicaments and biological substances; Z88.1 Allergy status to other antibiotic agents; Z91.018 Allergy to other foods; Z79.51 Long term (current) use of inhaled steroids; Z79.01 Long term (current) use of anticoagulants; Z79.899 Other long term (current) drug therapy
CPT/HCPCS: 99285; 96374; 96375 ×2; 96361 ×4; 36415; 93005; 80053; 83605; 83690; 83735; 85025; 85610; 81001; 76700; J2270; J2405; J1170

== ENCOUNTER 2017-03-21 07:01 | Observation (INO) | payer MEDICARE, BC ==
[2017-03-21] MEDS ORDERED: ONDANSETRON 4 MG/2 ML VIAL IVP STA (07:34)
[2017-03-21] MEDS ORDERED: KETOROLAC 30 MG/ML 1 ML VIAL IVP STA (07:34)
[2017-03-21] MEDS ORDERED: SODIUM CHLORIDE 0.9% 1,000 ML IV STA ×3 (07:34→09:14)
--- NOTE | 2017-03-21 07:40 | ED ---
Abdominal Pain HPI - General Chief Complaint: Abdominal Pain Stated Complaint: lower back pain Time Seen by Provider: 03/21/17 07:20 Source: patient, family, RN notes reviewed Mode of arrival: wheelchair Limitations: no limitations - History of Present Illness Initial Comments: This is a 66-year-old female who states she is here for the third time for some work symptoms. She complains of severe sharp left-sided flank pain radiates down toward her suprapubic area. She has some nausea with it some sweats she also states she's feels constipated with no bowel movement for past 4 days. She states she had similar pain and was discharged 1 AM yesterday morning. She was admitted recently for a cardiac rule out but also had sore throat pain at that time also. She was diagnosed with urinary tract infection. She did have ultrasounds which currently was unremarkable. She denies any dysuria or hematuria this time. She has no prior history kidney stones. She also states she has no ALLERGIES to pain medication she is aware of such as Toradol. She was using morphine before which is now that a lot of help her pain last time. MD Complaint: flank pain - Related Data Home Medications Medication Instructions Recorded Confirmed Simvastatin [Zocor] 10 mg PO HS 04/27/14 03/21/17 Atenolol [Tenormin] 25 mg PO QAM 10/19/14 03/21/17 Fluticasone Propionate [Flovent 2 puff INHALATION RT-BID 10/19/14 03/21/17 Hfa 220MCG] Furosemide [Lasix] 20 mg PO DAILY PRN 10/19/14 03/21/17 Potassium Chloride [Klor-Con 10] 10 meq PO DAILY PRN 10/19/14 03/21/17 Salmeterol Xinafoate [Serevent 1 puff INHALATION RT-BID 10/19/14 03/21/17 Diskus] Albuterol Inhaler [Ventolin Hfa 2 puff INHALATION RT-Q6H PRN 11/05/14 03/21/17 Inhaler] Niacin 500 mg PO DAILY@1200 03/08/15 03/21/17 [place]-3 Fatty Acids [[place]-3] 1,000 mg PO DAILY #0 03/08/15 03/21/17 Calcium Carbonate/Vitamin D3 2 tab PO PC-SUPPER 06/25/15 03/21/17 [Calcium 600-Vit D3 400 Tablet] Levothyroxine Sodium [Synthroid] 112 mcg PO QAM 09/15/15 03/21/17 Rivaroxaban [Xarelto] 20 mg PO QAM 11/15/15 03/21/17 Cetirizine HCl [Zyrtec] 10 mg PO DAILY PRN 01/27/16 03/21/17 Hair And Nails 2 tab PO DAILY@1200 01/27/16 03/21/17 Esomeprazole Magnesium [NexIUM] 40 mg PO QAM 04/05/16 03/21/17 Multivitamin [Multivitamins Adult 2 tab PO DAILY 05/07/16 03/21/17 Gummies] Zolpidem [Ambien] 5 mg PO HS PRN 07/16/16 03/21/17 Azithromycin [Zithromax] 250 mg PO MOWEFR 08/08/16 03/21/17 Vit C/E/Zn/Coppr/Lutein/Zeaxan 1 cap PO BID 01/09/17 03/21/17 [Preservision Areds 2 Softgel] Baclofen 10 mg PO TID PRN 02/24/17 03/21/17 Docusate [Colace] 100 mg PO DAILY PRN 02/24/17 03/21/17 Hydrocortisone [Cortef] 5 mg PO DAILY@1500 02/24/17 03/21/17 Hydrocortisone [Cortef] 15 mg PO QAM 02/24/17 03/21/17 Ipratropium-Albuterol Nebulize 3 ml INHALATION RT-QID PRN 02/24/17 03/21/17 [Duoneb 0.5 mg-3 mg/3 ml Soln] Ubidecarenone [Co Q-10] 200 mg PO DAILY 02/24/17 03/21/17 hydrOXYzine PAMOATE [Vistaril] 50 mg PO DAILY PRN 02/24/17 03/21/17 Gabapentin [Neurontin] 400 mg PO BID 03/19/17 03/21/17 Sulfamethox-Tmp 800-160Mg [Bactrim 1 tab PO Q12HR 03/21/17 03/21/17 Ds] Previous Rx's Medication Instructions Recorded oxyCODONE-APAP 7.5-325MG [Percocet 1 tab PO BID PRN #60 tab 02/06/17 7.5-325 mg] Allergies Allergy/AdvReac Type Severity Reaction Status Date / Time cefuroxime axetil Allergy Dyspnea Verified 03/21/17 08:24 [From Ceftin] moxifloxacin HCl Allergy Dyspnea Verified 03/21/17 08:24 [From Avelox] Penicillins Allergy Dyspnea Verified 03/21/17 08:24 rofecoxib [From Vioxx] Allergy Dyspnea Verified 03/21/17 08:24 blackberry Allergy Unknown Uncoded 03/21/17 07:07 Review of Systems ROS Statement: Those systems with pertinent positive or pertinent negative responses have been documented in the HPI. ROS Other: All systems not noted in ROS Statement are negative. 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 MTHFR GENE. STUCCO KERATOSIS, past fxs of L foot and R ankle, sciatic problems, diverticulitis History of Any Multi-Drug Resistant Organisms: None Reported Past Surgical History: Section, Cholecystectomy, Heart Catheterization , Orthopedic Surgery Additional Past Surgical History / Comment(s): RT ANKLE- PLATE & SCREWS, COLONOSCOPIES, EGDs, Bronchial Thermoplasty X3., KENDALL CATARACTS with lens implants. DEVIATED SEPTUM SURGERY. MULTIPLE BRONCHOSCOPIES, ABLATION of lungs. Past Anesthesia/Blood Transfusion Reactions: Family History of Problems w/ Anesthesia, Postoperative Nausea & Vomiting (PONV) Additional Past Anesthesia/Blood Transfusion Reaction / Comment(s): Pt has never received blood. DAUGHTER PONV Past Psychological History: No Psychological Hx Reported Additional Psychological History / Comment(s): . Smoking Status: Former smoker Past Alcohol Use History: None Reported Additional Past Alcohol Use History / Comment(s): quit smoking in 1989, smoked 1 /2 ppd x 10 years Past Drug Use History: None Reported - Past Family History Father Family Medical History: Cancer Additional Family Medical History / Comment(s): colon Mother Family Medical History: Congestive Heart Failure (CHF) Additional Family Medical History / Comment(s): emphysema Daughter(s) Family Medical History: Deep Vein Thrombosis (DVT) General Exam - General Exam Comments Initial Comments: Physical well-nourished awake alert oriented x 3 female she was apparently some distress Limitations: no limitations General appearance: alert, anxious, in distress Head exam: Present: atraumatic, normocephalic, normal inspection Eye exam: Present: normal appearance, PERRL, EOMI. Absent: scleral icterus, conjunctival injection, periorbital swelling ENT exam: Present: normal exam, mucous membranes moist Neck exam: Present: normal inspection. Absent: tenderness, meningismus, lymphadenopathy Respiratory exam: Present: normal lung sounds bilaterally, other (The patient is demonstrating hyperventilation). Absent: respiratory distress, wheezes, rales, rhonchi, stridor Cardiovascular Exam: Present: regular rate, normal rhythm, normal heart sounds. Absent: systolic murmur, diastolic murmur, rubs, gallop, clicks GI/Abdominal exam: Present: soft, normal bowel sounds, other (Obese abdomen). Absent: distended, tenderness, guarding, rebound, rigid, bruit, pulsatile mass, hernia Rectal exam: Present: deferred Extremities exam: Present: normal inspection, full ROM, normal capillary refill. Absent: tenderness, pedal edema, joint swelling, calf tenderness Back exam: Present: normal inspection, full ROM. Absent: tenderness, CVA tenderness (R), CVA tenderness (L), paraspinal tenderness, vertebral tenderness , rash noted Neurological exam: Present: alert, oriented X3, CN II-XII intact Psychiatric exam: Present: anxious Skin exam: Present: warm, intact, normal color, diaphoretic. Absent: rash Course Vital Signs 03/21/17 03/21/17 03/21/17 07:03 09:08 09:55 Temperature 98.8 F 97.8 F 98.7 F Pulse Rate 85 82 82 Respiratory 28 H 16 16 Rate Blood Pressure 128/64 99/55 104/58 O2 Sat by Pulse 95 93 L 96 Oximetry 03/21/17 10:00 Temperature 98.1 F Pulse Rate 88 Respiratory 16 Rate Blood Pressure 103/56 O2 Sat by Pulse 93 L Oximetry Medical Decision Making - Medical Decision Making Patient persists in having left-sided flank pain. Etiology is not clear patient does have elevated liver enzymes: Cancer since last the were drawn recently. 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 Patient will be admitted with GI consultation. - Lab Data Result diagrams: 03/21/17 07:40 03/21/17 07:40 Lab Results 03/21/17 03/21/17 03/21/17 Range/Units 07:40 07:40 07:40 WBC 6.4 (3.8-10.6) k/uL RBC 4.31 (3.80-5.40) m/uL Hgb 13.4 (11.4-16.0) gm/dL Hct 39.9 (34.0-46.0) % MCV 92.6 (80.0-100.0) fL MCH 31.0 (25.0-35.0) pg MCHC 33.5 (31.0-37.0) g/dL RDW 13.1 (11.5-15.5) % Plt Count 216 (150-450) k/uL Neutrophils % (Manual) 80.0 % Lymphocytes % (Manual) 10.0 % Monocytes % (Manual) 8.0 % Eosinophils % (Manual) 2.0 % Neutrophils # (Manual) 5.1 (1.3-7.7) k/uL Lymphocytes # (Manual) 0.6 L (1.0-4.8) k/uL Monocytes # (Manual) 0.5 (0-1.0) k/uL Eosinophils # (Manual) 0.1 (0-0.7) k/uL Nucleated RBCs 0 (0-0) /100 WBC RBC Morphology Normal Sodium 141 (137-145) mmol/L Potassium 4.2 (3.5-5.1) mmol/L Chloride 107 (98-107) mmol/L Carbon Dioxide 24 (22-30) mmol/L Anion Gap 10 mmol/L BUN 13 (7-17) mg/dL Creatinine 0.74 (0.52-1.04) mg/dL Est GFR (MDRD) Af Amer >60 (>60 ml/min/1.73 sqM) Est GFR (MDRD) Non-Af >60 (>60 ml/min/1.73 sqM) Glucose 90 (74-99) mg/dL Calcium 9.6 (8.4-10.2) mg/dL Total Bilirubin 1.3 (0.2-1.3) mg/dL AST 178 H (14-36) U/L ALT 183 H (9-52) U/L Alkaline Phosphatase 205 H (38-126) U/L Total Creatine Kinase 101 (30-135) U/L CK-MB (CK-2) 1.2 (0.0-2.4) ng/mL CK-MB (CK-2) Rel Index 1.2 Troponin I <0.012 (0.000-0.034) ng/mL Total Protein 7.2 (6.3-8.2) g/dL Albumin 4.1 (3.5-5.0) g/dL Amylase 61 (30-110) U/L Lipase 114 (23-300) U/L Urine Color Urine Appearance (Clear) Urine pH (5.0-8.0) Ur Specific Golden (1.001-1.035) Urine Protein (Negative) Urine Glucose (UA) (Negative) Urine Ketones (Negative) Urine Blood (Negative) Urine Nitrite (Negative) Urine Bilirubin (Negative) Urine Urobilinogen (<2.0) mg/dL Ur Leukocyte Esterase (Negative) Hepatitis A IgM Ab Hep Bs Antigen Hep B Core IgM Ab Hep C IgG Ab (Negative) 03/21/17 03/21/17 Range/Units 07:40 07:41 WBC (3.8-10.6) k/uL RBC (3.80-5.40) m/uL Hgb (11.4-16.0) gm/dL Hct (34.0-46.0) % MCV (80.0-100.0) fL MCH (25.0-35.0) pg MCHC (31.0-37.0) g/dL RDW (11.5-15.5) % Plt Count (150-450) k/uL Neutrophils % (Manual) % Lymphocytes % (Manual) % Monocytes % (Manual) % Eosinophils % (Manual) % Neutrophils # (Manual) (1.3-7.7) k/uL Lymphocytes # (Manual) (1.0-4.8) k/uL Monocytes # (Manual) (0-1.0) k/uL Eosinophils # (Manual) (0-0.7) k/uL Nucleated RBCs (0-0) /100 WBC RBC Morphology Sodium (137-145) mmol/L Potassium (3.5-5.1) mmol/L Chloride (98-107) mmol/L Carbon Dioxide (22-30) mmol/L Anion Gap mmol/L BUN (7-17) mg/dL Creatinine (0.52-1.04) mg/dL Est GFR (MDRD) Af Amer (>60 ml/min/1.73 sqM) Est GFR (MDRD) Non-Af (>60 ml/min/1.73 sqM) Glucose (74-99) mg/dL Calcium (8.4-10.2) mg/dL Total Bilirubin (0.2-1.3) mg/dL AST (14-36) U/L ALT (9-52) U/L Alkaline Phosphatase (38-126) U/L Total Creatine Kinase (30-135) U/L CK-MB (CK-2) (0.0-2.4) ng/mL CK-MB (CK-2) Rel Index Troponin I (0.000-0.034) ng/mL Total Protein (6.3-8.2) g/dL Albumin (3.5-5.0) g/dL Amylase (30-110) U/L Lipase (23-300) U/L Urine Color Yellow Urine Appearance Clear (Clear) Urine pH 6.0 (5.0-8.0) Ur Specific Golden 1.017 (1.001-1.035) Urine Protein Negative (Negative) Urine Glucose (UA) Negative (Negative) Urine Ketones 3+ H (Negative) Urine Blood Negative (Negative) Urine Nitrite Negative (Negative) Urine Bilirubin Negative (Negative) Urine Urobilinogen <2.0 (<2.0) mg/dL Ur Leukocyte Esterase Negative (Negative) Hepatitis A IgM Ab NEGATIVE Hep Bs Antigen Negative Hep B Core IgM Ab NEGATIVE Hep C IgG Ab Negative (Negative) - Radiology Data Radiology results: report reviewed (I did review the imaging and reports no acute findings), image reviewed Disposition Clinical Impression: Intractable abdominal pain, Elevated liver enzymes Disposition: ADMITTED IP TO THIS [facility] Condition: Stable Referrals: Kacey Pelayo MD [Primary Care Provider] - 1-2 days
[2017-03-21] MEDS ORDERED: HYDROmorphone 1 MG/ML 1 ML SYRINGE IVP STA ×2 (08:10→08:54)
[2017-03-21 08:13] LABS: Appearance,Urine Clear (Clear); Bilirubin,Urine Negative (Negative); Glucose,Urine (UA) Negative (Negative); Ketones,Urine 3+ (Negative); Leukocyte Esterase,Urine Negative (Negative); Nitrite,Urine Negative (Negative); Protein,Urine Negative (Negative); Specific Gravity,Urine 1.017 (1.001-1.035); UA Billing (MACRO vs. MICRO) CHEM; Urobilinogen,Urine <2.0 mg/dL (<2.0)
[2017-03-21 08:16] LABS: Aty Lym Flag Slight; CH 30.4; CHCM 32.9; HCT 39.9 % (34.0-46.0); HDW 2.36; HGB 13.4 gm/dL (11.4-16.0); MCHC 33.5 g/dL (31.0-37.0); MCV 92.6 fL (80.0-100.0); Mean Platelet Volume 7.9; RBC 4.31 m/uL (3.80-5.40); RDW 13.1 % (11.5-15.5); WBC 6.4 k/uL (3.8-10.6); WBC (Perox) 6.28
[2017-03-21 08:20] LABS: ALT 183 U/L (9-52); AST 178 U/L (14-36); Alkaline Phosphatase 205 U/L (38-126); Amylase 61 U/L (30-110); Anion Gap 10 mmol/L; Blood Urea Nitrogen 13 mg/dL (7-17); Calcium 9.6 mg/dL (8.4-10.2); Carbon Dioxide 24 mmol/L (22-30); Chloride 107 mmol/L (98-107); Glucose 90 mg/dL (74-99); Non-African American GFR(MDRD) >60 (>60 ml/min/1.73 sqM); Potassium 4.2 mmol/L (3.5-5.1); Sodium 141 mmol/L (137-145); Total Bilirubin 1.3 mg/dL (0.2-1.3); Total Protein 7.2 g/dL (6.3-8.2)
[2017-03-21 08:37] LABS: Creatine Kinase 101 U/L (30-135)
[2017-03-21 08:39] LABS: Add Differential Manual Differential
[2017-03-21 08:42] LABS: Nucleated Red Blood Cells 0 /100 WBC (0-0); Total Cells Counted 100
[2017-03-21 08:43] LABS: RBC Morphology Normal
[2017-03-21 08:48] LABS: Creatine Kinase MB 1.2 ng/mL (0.0-2.4); Troponin I <0.012 ng/mL (0.000-0.034)
--- NOTE | 2017-03-21 09:01 | CT ---
EXAMINATION TYPE: CT abdomen pelvis wo con DATE OF EXAM: 03/21/2017 HISTORY: Patient complains of Lt flank pain. CT DLP: 1041 mGycm. Automated Exposure Control for Dose Reduction was Utilized. TECHNIQUE: CT scan of the abdomen and pelvis is performed without oral or IV contrast. COMPARISON: CT abdomen and pelvis March 06, 2017 FINDINGS: Within the limitations of a non-contrast study, the following observations are made. LUNG BASES: Cardiomegaly is redemonstrated. There is patchy bibasilar linear scarring and/or atelecta sis.. LIVER/GB: Cholecystectomy clips are redemonstrated. Liver is heterogeneously hypodense suggesting mil d diffuse fatty infiltration as Hounsfield units average between 35 and 40. Density is still greater than spleen. PANCREAS: No significant abnormality is seen. SPLEEN: No significant abnormality is seen. ADRENALS: No significant abnormality is seen. KIDNEYS: No renal stones or hydronephrosis is evident bilaterally. BOWEL: Evaluation bowel is slightly suboptimal secondary to lack of enteric contrast. There is no keke picious small or large bowel dilatation seen. GENITAL ORGANS: No gross abnormality seen. LYMPH NODES: No greater than 1cm abdominal or pelvic lymph nodes are appreciated. OSSEOUS STRUCTURES: There is slight levoconvex scoliotic curvature. Multilevel spurring in the spine is present. There is grade 1 anterolisthesis of L4 on L5 redemonstrated. OTHER: No significant additional abnormality is seen. IMPRESSION: 1. No renal stones or hydronephrosis is seen bilaterally. 2. No significant new finding is seen to account for patient's symptoms.
[2017-03-21 09:32] LABS: Hepatitis B Surface Ag Index 0.05
[2017-03-21 09:37] LABS: Hepatitis B Core IgM Index 0.02
[2017-03-21 09:49] LABS: Hepatitis C Virus IgG Ab Negative (Negative); Hepatitis C Virus IgG Index 0.02
[2017-03-21] MEDS ORDERED: ONDANSETRON 4 MG/2 ML VIAL IVP PRN (11:33)
[2017-03-21] MEDS ORDERED: NALOXONE 0.4 MG/ML 1 ML VIAL IV PRN (11:33)
[2017-03-21] MEDS ORDERED: HYDROmorphone 1 MG/ML 1 ML SYRINGE IV PRN (11:33)
[2017-03-21] MEDS: SODIUM CHLORIDE 0.9% 1,000 ML IV SCH ×2 (12:51→16:16)
[2017-03-21] MEDS ORDERED: ZOLPIDEM 5 MG TAB PO PRN (13:05)
[2017-03-21] MEDS ORDERED: DOCUSATE 100 MG CAP PO PRN (13:05)
[2017-03-21] MEDS ORDERED: NON-FORMULARY DRUG (Esomeprazole Magnesium [Nexium] 40 MG) PO SCH (13:15)
[2017-03-21] MEDS ORDERED: HYDROCORTISONE 10 MG TAB PO SCH ×2 (13:30→15:00)
[2017-03-21] MEDS: KETOROLAC 30 MG/ML 1 ML VIAL IVP SCH ×2 (13:55→18:18)
[2017-03-21] MEDS: ONDANSETRON 4 MG/2 ML VIAL IVP PRN ×3 (13:57→23:16)
[2017-03-21] MEDS ORDERED: RIVAROXABAN 10 MG TAB PO STA (14:22)
[2017-03-21] MEDS: MORPHINE SULFATE 4 MG/ML SYRINGE IVP PRN ×3 (15:08→23:17)
[2017-03-21] MEDS: LIDOCAINE 5% PATCH TOPICAL SCH (16:15)
[2017-03-21 17:03] VITALS: BMI 44.9
--- NOTE | 2017-03-21 19:02 | HP ---
DATE OF ADMISSION: 03/21/2017 REASON FOR ADMISSION: Left-sided upper abdominal chest pain and abnormal labs. HISTORY OF PRESENT ILLNESS: This is a 66-year-old female who was recently admitted to the hospital twice, once or twice with similar complaints. The patient once underwent extensive cardiac work up, thereafter was discharged home and ( ) the patient was told that she has a urinary tract infection and thereafter was discharged home. Patient states that she has had this pain in her left lower ribs upper abdominal area for the last 2 to 3 weeks. States that she has extensive osteoarthritis and significant back problems using a cane to ambulate around. States that the pain is worsen with banding in different movements. Denies having any association with deep breathing, nausea, vomiting, any oral intake. Patient denies any urinary urgency, frequency. Patient states that she has not had a bowel movement in the last 5 days. The patient has undergone thermal ambulation of the lumbar spine in the past with similar complaints. States that she has also been having nausea, and vomiting for the last 48 hours, bilious in nature. No blood is noted. No change in medications except for the recent use of Bactrim. Past medical history includes: 1. Reactive airway disease. 2. Adrenal insufficiency. 3. Irritable bowel syndrome. 4. GERD. 5. Dyslipidemia. 6. Lumbar radiculopathy. 7. Tracheobronchomalacia. 8. Diverticulitis. 9. History of pulmonary embolism. 10. Thyroid disorder. 11. Multiple bronchoscopies. 12. Recent ( ) of her lumbar spine. 13. Cholecystectomy. 14. . 15. Cardiac catheterization. 16. Orthopedic surgery. 17. Bilateral cataract surgeries. SOCIAL HISTORY: Former smoker. Denies any alcohol use or illicit drug use. FAMILY HISTORY: Not pertinent to current admission. MEDICATIONS INCLUDE: 1. Zocor. 2. Tenormin. 3. Flovent. 4. Furosemide. 5. KCL. 6. Serevent. 7. Albuterol. 8. Jay Em-3. 9. Calcium carbonate. 10. Vitamin D3. 11. Synthroid. 12. Xarelto. 13. Zyrtec. 14. Nexium. 15. Multivitamin. 16. Ambien. 17. Zithromax. 18. Baclofen. 19. Docusate. 20. Cortisol 5 mg. 21. Cortisol 20 mg. 22. DuoNeb. 23. Zestril. 24. Neurontin. 25. Bactrim. ALLERGIES: CEFTIN, MOXIFLOXACIN, PENICILLIN, VIOXX AND BLACKBERRIES. REVIEW OF SYSTEMS: Fourteen-point review of systems was done, none pertinent other than what was mentioned above. PHYSICAL EXAM: VITALS: Temperature 98.5, heart rate 85, respiratory rate 16, blood pressure is 99 to 128/55 to 64 diastolic, saturating 93% on room air. GENERAL APPEARANCE: The patient appears to be alert and oriented x3. Does not appear to be in distress. NECK: Supple. No JVD. LUNGS: Good air movement. Clear to auscultation after clearance with cough. HEART: S1, S2 are irregularly irregular rate and rhythm. No murmurs appreciated. ABDOMEN: Soft. There is crepitus that is noted in left upper abdomen. Pain is reproducible to touch and reproducible to movement of the flexion on multiple bending movements at the hip. LOWER EXTREMITIES: No edema is noted. NEURO: No focal motor or sensory deficits noted. No suprapubic tenderness is appreciated. Laboratory data include hemoglobin 13.4, hematocrit 39.9. White count is 6.4, platelets of 216. Sodium 141, potassium 4.2, chloride 107, bicarb 24, BUN 13, creatinine 0.74. ASSESSMENT AND PLAN: 1. Left-sided abdominal pain this is likely musculoskeletal in nature. I do feel crepitus, which is consistent with musculoskeletal tears. No recent surgeries were noted. 2. Elevated liver enzymes hepatitis panel is negative. This could be drug-induced. We will repeat labs in a.m. 3. Intractable nausea and vomiting. This could be due to severe pain. 4. Asthma. 5. Adrenal insufficiency. 6. Migraines. 7. Hiatal hernia. 8. Multiple pulmonary embolisms. 9. Dyslipidemia. 10. Osteoarthritis. 11. Hypothyroidism. PLAN: We will obtain an MRI of the abdomen. It appears that it could be a muscle tear. We will start the patient on Toradol 50 mg IV every 6 hours. Medications were reconciled. Continue with IV fluids. Patient Solu-Cortef was held at this time. Continue with Protonix for 24 hours. In regards to nausea we will continue symptom control with Zofran. Once the patient's MRI is done, will likely obtain a PT consult to have some recommendations and restrictions in order for the patient to work around her injury. May benefit from an abdominal brace. Incentive spirometry is encouraged. Lidocaine patch will also be ordered. Will follow.
[2017-03-21] MEDS: FORMOTEROL FUMARATE 20 MCG/2 ML NEBU INHALATION SCH (20:05)
--- NOTE | 2017-03-21 20:56 | MR ---
MR abdomen without contrast HISTORY: Anterior abdominal pain, difficulty breathing Multiplanar multisequence imaging through the abdomen. Exam is correlated to CT abdomen pelvis 017 Along the abdominal wall musculature laterally on the right, some increased signal on T2-weighted seq uences is noted which could be indicative of muscle tear which correlates with patient's history, the re is edema in the subcutaneous fat at this level corresponding to patient's history. No other significant interval changes compared to patient's prior CT scans. IMPRESSION: Findings compatible with patient's history of probable muscle tear or strain along the ab dominal wall musculature posteriorly and laterally at approximately T10-T11 level on the right
[2017-03-21] MEDS: PANTOPRAZOLE 40 MG/10 ML VIAL IV SCH (21:34)
[2017-03-21 23:28] VITALS: TEMP 98.4
[2017-03-22] MEDS: KETOROLAC 30 MG/ML 1 ML VIAL IVP SCH ×3 (00:27→12:14)
[2017-03-22] MEDS: SODIUM CHLORIDE 0.9% 1,000 ML IV SCH ×2 (02:31→11:53)
[2017-03-22] MEDS: MORPHINE SULFATE 4 MG/ML SYRINGE IVP PRN ×3 (05:47→15:31)
[2017-03-22] MEDS ORDERED: LEVOTHYROXINE 112 MCG TAB PO SCH (06:30)
[2017-03-22] MEDS: FORMOTEROL FUMARATE 20 MCG/2 ML NEBU INHALATION SCH (07:09)
[2017-03-22 07:40] VITALS: BP 101/56; PULSE 73; RESP 19
[2017-03-22] MEDS: PANTOPRAZOLE 40 MG/10 ML VIAL IV SCH (08:13)
[2017-03-22] MEDS: LIDOCAINE 5% PATCH TOPICAL SCH (08:14)
[2017-03-22] MEDS: ONDANSETRON 4 MG/2 ML VIAL IVP PRN ×2 (08:15→16:00)
[2017-03-22] MEDS: ATENOLOL 25 MG TAB PO SCH ×2 (08:16→08:20)
[2017-03-22 08:42] LABS: ALT 198 U/L (9-52); AST 176 U/L (14-36); Alkaline Phosphatase 198 U/L (38-126); Anion Gap 9 mmol/L; Blood Urea Nitrogen 15 mg/dL (7-17); Calcium 8.7 mg/dL (8.4-10.2); Carbon Dioxide 20 mmol/L (22-30); Chloride 112 mmol/L (98-107); Glucose 76 mg/dL (74-99); Non-African American GFR(MDRD) >60 (>60 ml/min/1.73 sqM); Potassium 4.4 mmol/L (3.5-5.1); Sodium 141 mmol/L (137-145); Total Protein 6.1 g/dL (6.3-8.2)
--- NOTE | 2017-03-22 08:53 | XR ---
EXAMINATION TYPE: XR chest 1V portable DATE OF EXAM: 03/22/2017 COMPARISON: 08/02/2016 INDICATION: Difficulty in breathing TECHNIQUE: Single frontal view of the chest is obtained. FINDINGS: The heart size is mildly prominent. The pulmonary vasculature is normal. The lungs are clear. IMPRESSION: 1. Mild cardiomegaly.
[2017-03-22 08:56] LABS: Aty Lym Flag Slight; CH 29.7; CHCM 31.2; HCT 36.9 % (34.0-46.0); HDW 2.35; HGB 11.7 gm/dL (11.4-16.0); Hypochromasia Slight; MCH 30.4 pg (25.0-35.0); MCHC 31.8 g/dL (31.0-37.0); MCV 95.6 fL (80.0-100.0); Mean Platelet Volume 8.2; RBC 3.85 m/uL (3.80-5.40); WBC 5.6 k/uL (3.8-10.6); WBC (Perox) 5.76
[2017-03-22] MEDS ORDERED: NON-FORMULARY DRUG (Omega-3 Fatty Acids [Omega-3] 1,000 MG) PO SCH (09:00)
[2017-03-22] MEDS ORDERED: RIVAROXABAN 10 MG TAB PO SCH (09:00)
[2017-03-22] MEDS ORDERED: VIT A,C & E-LUTEIN-MINERALS 1 EACH TAB PO SCH (09:00)
[2017-03-22] MEDS ORDERED: HYDROCORTISONE 10 MG TAB PO SCH (09:00)
[2017-03-22] MEDS ORDERED: NON-FORMULARY DRUG (Ubidecarenone [Co Q-10] 200 MG) PO SCH (09:00)
[2017-03-22 09:52] LABS: Add Differential Manual Differential
[2017-03-22 09:54] LABS: Manual Review Performed; Nucleated Red Blood Cells 0 /100 WBC (0-0); Total Cells Counted 100
[2017-03-22 11:21] LABS: Vitamin B12 910 pg/mL
--- NOTE | 2017-03-22 11:24 | P.CONS ---
History of Present Illness - Reason for Consult Consult date: 03/22/17 Elevated liver enzymes Requesting physician: Owen Rhoades - History of Present Illness 66-year-old female patient of Dr. Kacey Pelayo with a past medical history cholecystectomy, COPD tracheobronchomalacia, asthma, pneumonia, chronic steroid usage with resultant adrenal insufficiency, fibromyalgia, GERD, hyponatremia, recurrent PE on Xarelto, and colonic polyps. Consultation requested for elevated liver enzymes. Admitted with left sided upper abdominal pain with recent cardiac workup. Pain has been present for about 3 weeks. Denies fever, chills, hematemesis, hematochezia or melena. Intermittent nausea and vomiting. No changes in medications including maintenance azithromycin 3 times weekly however she was prescribed Bactrim for suspected UTI on Saturday. Lipase 108-118. Hepatitis panel negative. 03/06/2017 total bilirubin 1.0. AST 38. ALT 45. Alkaline phosphatase 98. 03/19/2017 total bilirubin 1.6. AST 94. ALT 85. Alk phosphatase 137. 03/21/2017 total bilirubin 1.3. AST 170. ALT 183. Alk phosphatase 205. 03/19/2017 ultrasound abdomen normal liver size. No intrahepatic biliary dilatation. CBD 0.4 cm. 03/21/2017 CT abdomen and pelvis liver heterogeneously hypodense suggesting mild diffuse fatty infiltration. No intra-or extra hepatic biliary dilatation mentioned. 03/21/2017 MRI abdomen findings compatible with probable muscle tear or straining along the abdominal wall musculature posteriorly and laterally approximately T10-T11 on the right. Review of Systems Constitutional: Denies fever, chills, sweats, weight gain, or loss. HEENT: Negative for migraines, blurred vision or loss, earaches, drainage, tinnitus, oral mucosal lesions, dysphagia, or odynophagia. CARDIAC: Negative for chest pain, arrhythmias, or palpitation. RESPIRATORY: Asthma tracheobronchomalacia, pulmonary malaise and, COPD. GI: See HPI for pertinent findings. : Negative for hematuria, urgency, frequency, polyuria, or dysuria. GYNc: Denies possibility of . Negative vaginal discharge. MUSCULOSKELETAL: Fibromyalgia. Negative for muscle aches, swelling, arthritis, and arthralgias. NEUROLOGIC: Negative for stroke or TIA. ENDOCRINE: Negative for thyroid problems. SKIN: Negative for rash or itching. PSYCHIATRIC: Negative history for depression and anxiety All systems: negative (See HPI) Past Medical History Past Medical History: Asthma, Blood Disorder, Chest Pain / Angina, COPD, Eye Disorder, Fibromyalgia, GERD/Reflux, Hyperlipidemia, Osteoarthritis (OA), Pneumonia, Pulmonary Embolus (PE), Respiratory Disorder, Skin Disorder, Thyroid Disorder Additional Past Medical History / Comment(s): Current UTI being tx with ABX, adrenal Insufficency, IBS, Migraines, Heart Palpitations, Hiatal Hernia, pseudomonas in lungs, tracheabroncoimalacia (UNABLE TO EXPECTORATE MUCOUS), Lumbar DD and stenosis, Lumbar Radiculopathy, Osteopenia, Macular Degeneration -bilaterally with L eye worse, Multiple PEs Minh lower lobes of lungs. MTHFR GENE. STUCCO KERATOSIS, past fxs of L foot and R ankle, sciatic problems, diverticulitis, hypothyroid History of Any Multi-Drug Resistant Organisms: None Reported Past Surgical History: Section, Cholecystectomy, Heart Catheterization , Orthopedic Surgery Additional Past Surgical History / Comment(s): RT ANKLE- PLATE & SCREWS, COLONOSCOPIES, EGDs, Bronchial Thermoplasty X3., MINH CATARACTS with lens implants. DEVIATED SEPTUM SURGERY. MULTIPLE BRONCHOSCOPIES, bronchial thermoplasty. Past Anesthesia/Blood Transfusion Reactions: Family History of Problems w/ Anesthesia, Postoperative Nausea & Vomiting (PONV) Additional Past Anesthesia/Blood Transfusion Reaction / Comm: Pt has never received blood. DAUGHTER PONV Past Psychological History: No Psychological Hx Reported Additional Psychological History / Comment(s): Pt resides with her spouse. She is independent. She drives. She has a nebulizer. Smoking Status: Former smoker - Past Family History Father Family Medical History: Cancer Additional Family Medical History / Comment(s): colon Mother Family Medical History: Congestive Heart Failure (CHF) Additional Family Medical History / Comment(s): emphysema Daughter(s) Family Medical History: Deep Vein Thrombosis (DVT) Medications and Allergies Home Medications Medication Instructions Recorded Confirmed Type Simvastatin [Zocor] 10 mg PO HS 04/27/14 03/21/17 History Atenolol [Tenormin] 25 mg PO QAM 10/19/14 03/21/17 History Fluticasone Propionate [Flovent 2 puff INHALATION RT-BID 10/19/14 03/21/17 History Hfa 220MCG] Furosemide [Lasix] 20 mg PO DAILY PRN 10/19/14 03/21/17 History Potassium Chloride [Klor-Con 10] 10 meq PO DAILY PRN 10/19/14 03/21/17 History Salmeterol Xinafoate [Serevent 1 puff INHALATION RT-BID 10/19/14 03/21/17 History Diskus] Albuterol Inhaler [Ventolin Hfa 2 puff INHALATION RT-Q6H PRN 11/05/14 03/21/17 History Inhaler] Niacin 500 mg PO DAILY@1200 03/08/15 03/21/17 History [place]-3 Fatty Acids [[place]-3] 1,000 mg PO DAILY #0 03/08/15 03/21/17 History Calcium Carbonate/Vitamin D3 2 tab PO PC-SUPPER 06/25/15 03/21/17 History [Calcium 600-Vit D3 400 Tablet] Levothyroxine Sodium [Synthroid] 112 mcg PO QAM 09/15/15 03/21/17 History Rivaroxaban [Xarelto] 20 mg PO QAM 11/15/15 03/21/17 History Cetirizine HCl [Zyrtec] 10 mg PO DAILY PRN 01/27/16 03/21/17 History Hair And Nails 2 tab PO DAILY@1200 01/27/16 03/21/17 History Esomeprazole Magnesium [NexIUM] 40 mg PO QAM 04/05/16 03/21/17 History Multivitamin [Multivitamins Adult 2 tab PO DAILY 05/07/16 03/21/17 History Gummies] Zolpidem [Ambien] 5 mg PO HS PRN 07/16/16 03/21/17 History Azithromycin [Zithromax] 250 mg PO MOWEFR 08/08/16 03/21/17 History Vit C/E/Zn/Coppr/Lutein/Zeaxan 1 cap PO BID 01/09/17 03/21/17 History [Preservision Areds 2 Softgel] Baclofen 10 mg PO TID PRN 02/24/17 03/21/17 History Docusate [Colace] 100 mg PO DAILY PRN 02/24/17 03/21/17 History Hydrocortisone [Cortef] 5 mg PO DAILY@1500 02/24/17 03/21/17 History Hydrocortisone [Cortef] 15 mg PO QAM 02/24/17 03/21/17 History Ipratropium-Albuterol Nebulize 3 ml INHALATION RT-QID PRN 02/24/17 03/21/17 History [Duoneb 0.5 mg-3 mg/3 ml Soln] Ubidecarenone [Co Q-10] 200 mg PO DAILY 02/24/17 03/21/17 History hydrOXYzine PAMOATE [Vistaril] 50 mg PO DAILY PRN 02/24/17 03/21/17 History Gabapentin [Neurontin] 400 mg PO BID 03/19/17 03/21/17 History Sulfamethox-Tmp 800-160Mg [Bactrim 1 tab PO Q12HR 03/21/17 03/21/17 History Ds] Allergies Allergy/AdvReac Type Severity Reaction Status Date / Time cefuroxime axetil Allergy Dyspnea Verified 03/21/17 08:24 [From Ceftin] moxifloxacin HCl Allergy Dyspnea Verified 03/21/17 08:24 [From Avelox] Penicillins Allergy Dyspnea Verified 03/21/17 08:24 rofecoxib [From Vioxx] Allergy Dyspnea Verified 03/21/17 08:24 blackberry Allergy Unknown Uncoded 03/21/17 07:07 Physical Exam Vitals: Vital Signs Temp Pulse Pulse Resp BP BP Pulse Ox 03/22/17 07:15 68 03/22/17 07:11 68 03/22/17 07:00 98.4 F 73 19 101/56 95 03/21/17 23:00 98.4 F 69 16 106/55 95 03/21/17 16:00 75 16 03/21/17 15:00 98.8 F 75 16 124/66 97 03/21/17 13:00 16 03/21/17 12:58 98.3 F 85 20 118/64 95 03/21/17 12:00 98.2 F 79 16 117/74 93 L 03/21/17 10:00 98.1 F 88 16 103/56 93 L 03/21/17 09:55 98.7 F 82 16 104/58 96 03/21/17 09:08 97.8 F 82 16 99/55 93 L Intake and Output 03/21/17 03/22/17 03/22/17 22:59 06:59 14:59 Intake Total 600 2998 Balance 600 2998 Intake: Intake, IV Titration 2998 Amount Sodium Chloride 0.9% 1, 1000 000 ml @ 125 mls/hr IV . Q8H RONALDO Rx#:[id number] Sodium Chloride 0.9% 1, 999 000 ml @ 999 mls/hr IV . Q1H1M STA Rx#:[id number] Sodium Chloride 0.9% 1, 999 000 ml @ 999 mls/hr IV . Q1H1M STA Rx#:[id number] Oral 600 Other: Voiding Method Toilet # Voids 1 1 # [place] 1 Weight 104.326 kg General appearance: The patient is alert, oriented, in no acute distress. HET: Head is normocephalic and atraumatic. Pupils are equal and reactive. Oropharynx is clear without lesions. Neck: Supple without lymphadenopathy. Trachea midline. Heart: S1 S2. Regular rate and rhythm. Lungs: No crackles or wheezes are heard. Abdomen: Soft, tenderness to the mid abdomen extending bilaterally, nondistended with bowel sounds. No peritoneal signs. No palpable organomegaly or masses. Extremities: Normal skin color and turgor. No cyanosis, rash, ulceration, clubbing, or edema. Radial and pedal pulses are 2/4 bilaterally. Neurological: No focal deficits. Strength and sensation are grossly intact.m Results CBC & Chem 7: 03/22/17 07:43 03/22/17 07:43 Labs: Abnormal Lab Results - Last 24 Hours (Table) 03/21/17 Range/Units 07:40 Lymphocytes # (Manual) 0.6 L (1.0-4.8) k/uL Microbiology - Last 24 Hours (Table) 03/21/17 07:41 Urine Culture - Preliminary Urine,Voided CT scan - abdomen: report reviewed (Dr. Quevedo) US - abdomen: report reviewed (Dr. Quevedo) MRI - abdomen: report reviewed (Dr. Quevedo) Assessment and Plan (1) Elevated liver enzymes Narrative/Plan: Suspect medication induced drug injury recent antibiotics for UTI Status: Acute (2) Abdominal pain Status: Acute Plan: 1. Await repeat chemistries this morning. ERCP not planned at this time. Continue with supportive measures. Avoid hepatotoxic medications. Thank you for this kind referral and the opportunity to participate in the care of your patient. This consultation was discussed with Dr. Nasr. The impression and plan of care have been directed as dictated.
[2017-03-23] MEDS ORDERED: PANTOPRAZOLE 40 MG TABLET PO SCH (09:00)
--- NOTE | 2017-03-23 09:05 | DS ---
DATE OF ADMISSION: 03/21/2017 DATE OF DISCHARGE: 03/22/2017 Patient is admitted with left-sided abdominal pain in the left upper abdominal quadrant and patient was found to have muscle tear on MRI. Patient had crepitus on exam. PT and OT evaluated the patient. No further recommendations from them. Will set up of abdominal binder and patient will be discharged. Antiinflammatories will help her, but since she has bad acid reflux history I asked her to take [id number] Tylenol and patient will be discharged with a Lidoderm patch and patient's hydrocortisone is being held at this point of time by her bail bond agent, which the management of which will be left to them. Patient will be discharged today. Patient cannot continue her Bactrim. Patient had elevated liver enzymes appear to be secondary to drug-induced. They remained stable and patient is cleared for discharge today. Follow with primary care physician, Dr. Kacey Pelayo in 3 to 4 days. Activity as tolerated. Cardiac diet. Patient's vitals are stable. FINAL DIAGNOSES: 1. Left-sided abdominal pain, musculoskeletal in nature with sepsis and secondary to muscle tear. 2. Elevated liver enzymes secondary to drug induced. 3. Mild hepatitis. Liver enzymes are fairly stable at this point of time. 4. Intractable nausea, improved, secondary to pain. Patient will be discharged on Zofran p.r.n. basis. 5. Asthma without any acute exacerbation. 6. Obesity. Counseling was provided. 7. Adrenal insufficiency. Hydrocortisone is being temporally held. 8. History of multiple pulmonary embolism for which patient is on Xarelto, which she can continue. 9. Dyslipidemia. 10. Osteoarthritis. 11. Hypothyroidism for which patient will continue her home medications. DISCHARGE DIET: Cardiac as mentioned above. Activity as tolerated. Follow-ups as mentioned above. We will refer her to orthopedic surgery as well as an outpatient for muscle tear. I spent greater than 35 minutes in total discharge process.
== END 2017-03-22 16:58 | disposition home or self-care (01) ==
LOC: EC 07:01 → 4MS4W 11:38
PROVIDERS: ADMIT Internal Medicine; ATTEND Internal Medicine
DX: S39.011A Strain of muscle, fascia and tendon of abdomen, initial encounter (principal); A41.9 Sepsis, unspecified organism; Z79.899 Other long term (current) drug therapy; Z79.51 Long term (current) use of inhaled steroids; Z79.2 Long term (current) use of antibiotics; Z88.1 Allergy status to other antibiotic agents; Z88.0 Allergy status to penicillin; Z88.8 Allergy status to other drugs, medicaments and biological substances; Z91.018 Allergy to other foods; J45.909 Unspecified asthma, uncomplicated; J44.9 Chronic obstructive pulmonary disease, unspecified; M79.7 Fibromyalgia; K21.9 Gastro-esophageal reflux disease without esophagitis; E78.5 Hyperlipidemia, unspecified; M19.90 Unspecified osteoarthritis, unspecified site; Z87.01 Personal history of pneumonia (recurrent); Z86.711 Personal history of pulmonary embolism; K58.9 Irritable bowel syndrome, unspecified; G43.909 Migraine, unspecified, not intractable, without status migrainosus; E72.12 Methylenetetrahydrofolate reductase deficiency; Z87.891 Personal history of nicotine dependence; Z82.49 Family history of ischemic heart disease and other diseases of the circulatory system; Z82.5 Family history of asthma and other chronic lower respiratory diseases; R11.2 Nausea with vomiting, unspecified; E27.40 Unspecified adrenocortical insufficiency; E03.9 Hypothyroidism, unspecified; K44.9 Diaphragmatic hernia without obstruction or gangrene; N39.0 Urinary tract infection, site not specified; K75.9 Inflammatory liver disease, unspecified; E66.9 Obesity, unspecified; Z79.01 Long term (current) use of anticoagulants; Z79.52 Long term (current) use of systemic steroids; H35.30 Unspecified macular degeneration; R74.8 Abnormal levels of other serum enzymes; Z68.41 Body mass index [BMI] 40.0-44.9, adult; X58.XXXA Exposure to other specified factors, initial encounter
CPT/HCPCS: 36415; 71010; 74176; 74181; 80053; 80074; 81003; 82150; 82550; 82553; 82607; 83690; 84484; 85025; 87086; 94640; 96361; 96374; 96375; 96376; 99285

== ENCOUNTER 2017-03-24 20:19 | Emergency (ER) | payer MEDICARE, BC ==
[2017-03-24 20:30] VITALS: RESP 18
[2017-03-24] MEDS ORDERED: IPRATROPIUM 0.5 MG/2.5 ML NEBU INHALATION STA (20:45)
[2017-03-24] MEDS ORDERED: methylPREDNISolone SOD SUCCI 125 MG/2 ML VIAL IV STA (20:45)
[2017-03-24] MEDS ORDERED: ALBUTEROL NEBULIZED 2.5 MG/3 ML INHALATION STA (20:45)
[2017-03-24 20:55] LABS: Basophils # (A) 0.1 k/uL (0-0.2); Basophils % (A) 1 %; CHCM 32.2; Eosinophils # (A) 0.3 k/uL (0-0.7); Eosinophils % (A) 5 %; HCT 40.2 % (34.0-46.0); HDW 2.32; HGB 12.9 gm/dL (11.4-16.0); Luc # (Auto) 0.25; Luc % (Auto) 4; Lymphocytes # (A) 1.3 k/uL (1.0-4.8); Lymphocytes % (A) 23 %; MCV 93.9 fL (80.0-100.0); Mean Platelet Volume 7.7; Monocytes # (A) 0.4 k/uL (0-1.0); Monocytes % (A) 7 %; Neutrophils # (A) 3.4 k/uL (1.3-7.7); Neutrophils % (A) 60 %; RBC 4.28 m/uL (3.80-5.40); RDW 13.4 % (11.5-15.5); WBC 5.7 k/uL (3.8-10.6); WBC (Perox) 5.33
--- NOTE | 2017-03-24 20:56 | ED ---
General Adult HPI - General Chief complaint: Shortness of Breath Stated complaint: Chest Pain Time Seen by Provider: 03/24/17 20:25 Source: patient, family, RN notes reviewed Mode of arrival: wheelchair Limitations: no limitations - History of Present Illness Initial comments: This is a 66-year-old female presents emergency department with past history of COPD and asthma. Patient states today about 4:30 she started having some difficulty breathing patient states she tried a treatment at home and it didn't help. Patient states she did have some sharp chest pain that only lasts a few seconds in her epigastric area but that is gone away. Patient denies any fever or chills. Patient states she was just recently in the hospital for a muscle tear in her abdomen that she believes occurred from coughing. Patient denies any new abdominal pain. Patient denies any nausea or vomiting. Patient denies any lightheadedness dizziness or near syncopal episode. - Related Data Home Medications Medication Instructions Recorded Confirmed Simvastatin [Zocor] 10 mg PO HS 04/27/14 03/24/17 Atenolol [Tenormin] 25 mg PO QAM 10/19/14 03/24/17 Fluticasone Propionate [Flovent 2 puff INHALATION RT-BID 10/19/14 03/24/17 Hfa 220MCG] Furosemide [Lasix] 20 mg PO DAILY PRN 10/19/14 03/24/17 Potassium Chloride [Klor-Con 10] 10 meq PO DAILY PRN 10/19/14 03/24/17 Salmeterol Xinafoate [Serevent 1 puff INHALATION RT-BID 10/19/14 03/24/17 Diskus] Albuterol Inhaler [Ventolin Hfa 2 puff INHALATION RT-Q6H PRN 11/05/14 03/24/17 Inhaler] Niacin 500 mg PO DAILY@1200 03/08/15 03/24/17 [place]-3 Fatty Acids [[place]-3] 1,000 mg PO DAILY #0 03/08/15 03/24/17 Calcium Carbonate/Vitamin D3 2 tab PO PC-SUPPER 06/25/15 03/24/17 [Calcium 600-Vit D3 400 Tablet] Levothyroxine Sodium [Synthroid] 112 mcg PO QAM 09/15/15 03/24/17 Rivaroxaban [Xarelto] 20 mg PO QAM 11/15/15 03/24/17 Cetirizine HCl [Zyrtec] 10 mg PO DAILY PRN 01/27/16 03/24/17 Hair And Nails 2 tab PO DAILY@1200 01/27/16 03/24/17 Esomeprazole Magnesium [NexIUM] 40 mg PO QAM 04/05/16 03/24/17 Multivitamin [Multivitamins Adult 2 tab PO DAILY 05/07/16 03/24/17 Gummies] Zolpidem [Ambien] 5 mg PO HS PRN 07/16/16 03/24/17 Azithromycin [Zithromax] 250 mg PO MOWEFR 08/08/16 03/24/17 Vit C/E/Zn/Coppr/Lutein/Zeaxan 1 cap PO BID 01/09/17 03/24/17 [Preservision Areds 2 Softgel] Baclofen 10 mg PO TID PRN 02/24/17 03/24/17 Docusate [Colace] 100 mg PO DAILY PRN 02/24/17 03/24/17 Hydrocortisone [Cortef] 5 mg PO DAILY@1500 02/24/17 03/24/17 Hydrocortisone [Cortef] 15 mg PO QAM 02/24/17 03/24/17 Ipratropium-Albuterol Nebulize 3 ml INHALATION RT-QID PRN 02/24/17 03/24/17 [Duoneb 0.5 mg-3 mg/3 ml Soln] Ubidecarenone [Co Q-10] 200 mg PO DAILY 02/24/17 03/24/17 hydrOXYzine PAMOATE [Vistaril] 50 mg PO DAILY PRN 02/24/17 03/24/17 Gabapentin [Neurontin] 400 mg PO BID 03/19/17 03/24/17 Previous Rx's Medication Instructions Recorded oxyCODONE-APAP 7.5-325MG [Percocet 1 tab PO BID PRN #60 tab 02/06/17 7.5-325 mg] predniSONE 40 mg PO DAILY #8 tab 03/24/17 Allergies Allergy/AdvReac Type Severity Reaction Status Date / Time cefuroxime axetil Allergy Dyspnea Verified 03/24/17 20:48 [From Ceftin] moxifloxacin HCl Allergy Dyspnea Verified 03/24/17 20:48 [From Avelox] Penicillins Allergy Dyspnea Verified 03/24/17 20:48 rofecoxib [From Vioxx] Allergy Dyspnea Verified 03/24/17 20:48 blackberry Allergy Unknown Uncoded 03/21/17 07:07 Review of Systems ROS Statement: Those systems with pertinent positive or pertinent negative responses have been documented in the HPI. ROS Other: All systems not noted in ROS Statement are negative. 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 MTHFR GENE. STUCCO KERATOSIS, past fxs of L foot and R ankle, sciatic problems, diverticulitis, hypothyroid History of Any Multi-Drug Resistant Organisms: None Reported Past Surgical History: Section, Cholecystectomy, Heart Catheterization , Orthopedic Surgery Additional Past Surgical History / Comment(s): RT ANKLE- PLATE & SCREWS, COLONOSCOPIES, EGDs, Bronchial Thermoplasty X3., [place] CATARACTS with lens implants. DEVIATED SEPTUM SURGERY. MULTIPLE BRONCHOSCOPIES, bronchial thermoplasty. Past Anesthesia/Blood Transfusion Reactions: Family History of Problems w/ Anesthesia, Postoperative Nausea & Vomiting (PONV) Additional Past Anesthesia/Blood Transfusion Reaction / Comment(s): Pt has never received blood. DAUGHTER PONV Past Psychological History: No Psychological Hx Reported Smoking Status: Former smoker Past Alcohol Use History: None Reported Past Drug Use History: None Reported - Past Family History Father Family Medical History: Cancer Additional Family Medical History / Comment(s): colon Mother Family Medical History: Congestive Heart Failure (CHF) Additional Family Medical History / Comment(s): emphysema Daughter(s) Family Medical History: Deep Vein Thrombosis (DVT) General Exam - General Exam Comments Initial Comments: GENERAL: Patient is well-developed and well-nourished. Patient is nontoxic and well- hydrated and is in mild distress. ENT: Neck is soft and supple. No significant lymphadenopathy is noted. Oropharynx is clear. Moist mucous membranes. Neck has full range of motion without eliciting any pain. EYES: The sclera were anicteric and conjunctiva were pink and moist. Extraocular movements were intact and pupils were equal round and reactive to light. Eyelids were unremarkable. PULMONARY: Unlabored respirations. Good breath sounds bilaterally. Expiratory wheezing CARDIOVASCULAR: There is a regular rate and rhythm without any murmurs gallops or rubs. ABDOMEN: Abdominal tenderness in the left upper quadrant which is where she had a muscle tear.. SKIN: Skin is clear with no lesions or rashes and otherwise unremarkable. NEUROLOGIC: Patient is alert and oriented x3. Cranial nerves II through XII are grossly intact. Motor and sensory are also intact. Normal speech, volume and content. Symmetrical smile. MUSCULOSKELETAL: Normal extremities with adequate strength and full range of motion. No lower extremity swelling or edema. No calf tenderness. LYMPHATICS: No significant lymphadenopathy is noted PSYCHIATRIC: Normal psychiatric evaluation. Normal interpersonal interactions appears functionally intact in deals appropriately with others. No signs of depression. No signs of anxiety. Limitations: no limitations Course Vital Signs 03/24/17 03/24/17 03/24/17 20:24 20:31 21:14 Temperature 98.3 F Pulse Rate 84 79 Respiratory 18 18 Rate Blood Pressure 156/71 03/24/17 21:36 Temperature Pulse Rate 84 Respiratory Rate Blood Pressure Medical Decision Making - Medical Decision Making EKG shows normal sinus rhythm at 75 bpm MT interval is 132 QRS is 90 QT intervals 42 QTC is 448. Patient's EKG is compared to an old EKG there are no acute changes. I will begin to reevaluate the patient after the breathing treatment she sounded very clear. Patient was requesting to go home. Chest x-ray shows no acute abnormality. - Lab Data Result diagrams: 03/24/17 20:35 03/24/17 20:35 Lab Results 03/24/17 03/24/17 03/24/17 Range/Units 20:35 20:35 20:35 WBC 5.7 (3.8-10.6) k/uL RBC 4.28 (3.80-5.40) m/uL Hgb 12.9 (11.4-16.0) gm/dL Hct 40.2 (34.0-46.0) % MCV 93.9 (80.0-100.0) fL MCH 30.0 (25.0-35.0) pg MCHC 32.0 (31.0-37.0) g/dL RDW 13.4 (11.5-15.5) % Plt Count 207 (150-450) k/uL Neutrophils % 60 % Lymphocytes % 23 % Monocytes % 7 % Eosinophils % 5 % Basophils % 1 % Neutrophils # 3.4 (1.3-7.7) k/uL Lymphocytes # 1.3 (1.0-4.8) k/uL Monocytes # 0.4 (0-1.0) k/uL Eosinophils # 0.3 (0-0.7) k/uL Basophils # 0.1 (0-0.2) k/uL PT (9.0-12.0) sec INR (<1.1) APTT (22.0-30.0) sec Sodium 143 (137-145) mmol/L Potassium 4.0 (3.5-5.1) mmol/L Chloride 107 (98-107) mmol/L Carbon Dioxide 25 (22-30) mmol/L Anion Gap 11 mmol/L BUN 11 (7-17) mg/dL Creatinine 0.60 (0.52-1.04) mg/dL Est GFR (MDRD) Af Amer >60 (>60 ml/min/1.73 sqM) Est GFR (MDRD) Non-Af >60 (>60 ml/min/1.73 sqM) Glucose 94 (74-99) mg/dL Calcium 9.6 (8.4-10.2) mg/dL Total Bilirubin 0.7 (0.2-1.3) mg/dL AST 67 H (14-36) U/L ALT 128 H (9-52) U/L Alkaline Phosphatase 182 H (38-126) U/L Total Creatine Kinase 116 (30-135) U/L CK-MB (CK-2) 1.2 (0.0-2.4) ng/mL CK-MB (CK-2) Rel Index 1.0 Troponin I <0.012 (0.000-0.034) ng/mL Total Protein 6.4 (6.3-8.2) g/dL Albumin 3.8 (3.5-5.0) g/dL 03/24/17 Range/Units 20:35 WBC (3.8-10.6) k/uL RBC (3.80-5.40) m/uL Hgb (11.4-16.0) gm/dL Hct (34.0-46.0) % MCV (80.0-100.0) fL MCH (25.0-35.0) pg MCHC (31.0-37.0) g/dL RDW (11.5-15.5) % Plt Count (150-450) k/uL Neutrophils % % Lymphocytes % % Monocytes % % Eosinophils % % Basophils % % Neutrophils # (1.3-7.7) k/uL Lymphocytes # (1.0-4.8) k/uL Monocytes # (0-1.0) k/uL Eosinophils # (0-0.7) k/uL Basophils # (0-0.2) k/uL PT 12.2 H (9.0-12.0) sec INR 1.2 (<1.1) APTT 27.3 (22.0-30.0) sec Sodium (137-145) mmol/L Potassium (3.5-5.1) mmol/L Chloride (98-107) mmol/L Carbon Dioxide (22-30) mmol/L Anion Gap mmol/L BUN (7-17) mg/dL Creatinine (0.52-1.04) mg/dL Est GFR (MDRD) Af Amer (>60 ml/min/1.73 sqM) Est GFR (MDRD) Non-Af (>60 ml/min/1.73 sqM) Glucose (74-99) mg/dL Calcium (8.4-10.2) mg/dL Total Bilirubin (0.2-1.3) mg/dL AST (14-36) U/L ALT (9-52) U/L Alkaline Phosphatase (38-126) U/L Total Creatine Kinase (30-135) U/L CK-MB (CK-2) (0.0-2.4) ng/mL CK-MB (CK-2) Rel Index Troponin I (0.000-0.034) ng/mL Total Protein (6.3-8.2) g/dL Albumin (3.5-5.0) g/dL Disposition Clinical Impression: Acute exacerbation of chronic obstructive airways disease Disposition: HOME SELF-CARE Instructions: COPD (Chronic Obstructive Pulmonary Disease) (ED) Prescriptions: predniSONE 40 mg PO DAILY #8 tab Referrals: Kacey Pelayo MD [Primary Care Provider] - 1-2 days Time of Disposition: 22:16
[2017-03-24 21:09] LABS: INR 1.2 (<1.1); Partial Thromboplastin Time 27.3 sec (22.0-30.0); Prothrombin Time 12.2 sec (9.0-12.0)
[2017-03-24 21:10] LABS: ALT 128 U/L (9-52); AST 67 U/L (14-36); Alkaline Phosphatase 182 U/L (38-126); Anion Gap 11 mmol/L; Blood Urea Nitrogen 11 mg/dL (7-17); Calcium 9.6 mg/dL (8.4-10.2); Carbon Dioxide 25 mmol/L (22-30); Chloride 107 mmol/L (98-107); Glucose 94 mg/dL (74-99); Non-African American GFR(MDRD) >60 (>60 ml/min/1.73 sqM); Sodium 143 mmol/L (137-145); Total Bilirubin 0.7 mg/dL (0.2-1.3); Total Protein 6.4 g/dL (6.3-8.2)
[2017-03-24 21:14] LABS: Creatine Kinase 116 U/L (30-135)
[2017-03-24 21:27] LABS: Creatine Kinase MB 1.2 ng/mL (0.0-2.4); Troponin I <0.012 ng/mL (0.000-0.034)
--- NOTE | 2017-03-24 21:30 | XR ---
EXAMINATION TYPE: XR chest 2V DATE OF EXAM: 03/24/2017 COMPARISON: 03/26/2017 INDICATION: Difficulty in breathing, weakness TECHNIQUE: Frontal and lateral views of the chest are obtained. FINDINGS: The heart size is normal. The pulmonary vasculature is normal. The lungs are clear. IMPRESSION: 1. No acute pulmonary process.
[2017-03-24 22:32] VITALS: BP 155/81; PULSE 98; TEMP 98.5
== END 2017-03-24 22:34 | disposition home or self-care (01) ==
LOC: EC 20:19
DX: J44.1 Chronic obstructive pulmonary disease with (acute) exacerbation (principal); R07.9 Chest pain, unspecified; J45.909 Unspecified asthma, uncomplicated; M79.7 Fibromyalgia; K21.9 Gastro-esophageal reflux disease without esophagitis; E78.5 Hyperlipidemia, unspecified; M19.90 Unspecified osteoarthritis, unspecified site; E03.9 Hypothyroidism, unspecified; Z87.891 Personal history of nicotine dependence; Z79.51 Long term (current) use of inhaled steroids; Z79.899 Other long term (current) drug therapy; Z79.01 Long term (current) use of anticoagulants; Z88.1 Allergy status to other antibiotic agents; Z88.8 Allergy status to other drugs, medicaments and biological substances; Z91.018 Allergy to other foods; Z88.0 Allergy status to penicillin; Z86.711 Personal history of pulmonary embolism; Z87.01 Personal history of pneumonia (recurrent); Z95.818 Presence of other cardiac implants and grafts; Z98.890 Other specified postprocedural states
CPT/HCPCS: 99285; 96374; 36415; 94640; 93005; 80053; 82550; 82553; 84484; 85025; 85610; 85730; 71020; J2930

== ENCOUNTER 2017-03-31 21:54 | Emergency (ER) | payer MEDICARE, BC ==
[2017-03-31 22:19] VITALS: RESP 20; TEMP 98.3
--- NOTE | 2017-03-31 22:35 | ED ---
ENT HPI - General Chief complaint: ENT Stated complaint: nose bleeds/on blood thinner Time Seen by Provider: 03/31/17 22:23 Source: patient, RN notes reviewed, old records reviewed Mode of arrival: ambulatory Limitations: no limitations - History of Present Illness Initial comments: 66-year-old female presents to the ED chief complaint of a nosebleed for the past half hour. She reports that she had one earlier today for an hour and minutes.. She was up and this evening she was brushing her teeth when she started also replete blood again. Patient reports coming from the left nostril. Patient states that she is on xarelto. She states that she is trying to get it to stop. Patient denies any recent fever or chills. She denies any lightheadedness, vision changes or any other symptoms. - Related Data Home Medications Medication Instructions Recorded Confirmed Simvastatin [Zocor] 10 mg PO HS 04/27/14 03/31/17 Atenolol [Tenormin] 25 mg PO QAM 10/19/14 03/31/17 Fluticasone Propionate [Flovent 2 puff INHALATION RT-BID 10/19/14 03/31/17 Hfa 220MCG] Furosemide [Lasix] 20 mg PO DAILY PRN 10/19/14 03/31/17 Potassium Chloride [Klor-Con 10] 10 meq PO DAILY PRN 10/19/14 03/31/17 Salmeterol Xinafoate [Serevent 1 puff INHALATION RT-BID 10/19/14 03/31/17 Diskus] Albuterol Inhaler [Ventolin Hfa 2 puff INHALATION RT-Q6H PRN 11/05/14 03/31/17 Inhaler] Niacin 500 mg PO DAILY@1200 03/08/15 03/31/17 Alvord-3 Fatty Acids [Alvord-3] 1,000 mg PO DAILY #0 03/08/15 03/31/17 Calcium Carbonate/Vitamin D3 2 tab PO PC-SUPPER 06/25/15 03/31/17 [Calcium 600-Vit D3 400 Tablet] Levothyroxine Sodium [Synthroid] 112 mcg PO QAM 09/15/15 03/31/17 Rivaroxaban [Xarelto] 20 mg PO QAM 11/15/15 03/31/17 Cetirizine HCl [Zyrtec] 10 mg PO DAILY PRN 01/27/16 03/31/17 Esomeprazole Magnesium [NexIUM] 40 mg PO QAM 04/05/16 03/31/17 Multivitamin [Multivitamins Adult 2 tab PO DAILY 05/07/16 03/31/17 Gummies] Azithromycin [Zithromax] 250 mg PO MOWEFR 08/08/16 03/31/17 Vit C/E/Zn/Coppr/Lutein/Zeaxan 1 cap PO BID 01/09/17 03/31/17 [Preservision Areds 2 Softgel] Baclofen 10 mg PO TID PRN 02/24/17 03/31/17 Docusate [Colace] 100 mg PO DAILY PRN 02/24/17 03/31/17 Hydrocortisone [Cortef] 5 mg PO DAILY@1500 02/24/17 03/31/17 Hydrocortisone [Cortef] 15 mg PO QAM 02/24/17 03/31/17 Ipratropium-Albuterol Nebulize 3 ml INHALATION RT-QID PRN 02/24/17 03/31/17 [Duoneb 0.5 mg-3 mg/3 ml Soln] Ubidecarenone [Co Q-10] 200 mg PO HS 02/24/17 03/31/17 hydrOXYzine PAMOATE [Vistaril] 50 mg PO DAILY PRN 02/24/17 03/31/17 Gabapentin [Neurontin] 400 mg PO BID 03/19/17 03/31/17 Multivit-Min/Iron/Folic/Kei340 2 tab PO DAILY@1200 03/31/17 03/31/17 [Hair, Skin and Nails Tablet] Previous Rx's Medication Instructions Recorded oxyCODONE-APAP 7.5-325MG [Percocet 1 tab PO BID PRN #60 tab 02/06/17 7.5-325 mg] predniSONE 40 mg PO DAILY #8 tab 03/24/17 Allergies Allergy/AdvReac Type Severity Reaction Status Date / Time cefuroxime axetil Allergy Dyspnea Verified 03/31/17 22:19 [From Ceftin] moxifloxacin HCl Allergy Dyspnea Verified 03/31/17 22:19 [From Avelox] Penicillins Allergy Dyspnea Verified 03/31/17 22:19 rofecoxib [From Vioxx] Allergy Dyspnea Verified 03/31/17 22:19 blackberry Allergy Rash/Hives Uncoded 03/31/17 22:54 Review of Systems ROS Statement: Those systems with pertinent positive or pertinent negative responses have been documented in the HPI. ROS Other: All systems not noted in ROS Statement are negative. 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 MTHFR GENE. STUCCO KERATOSIS, past fxs of L foot and R ankle, sciatic problems, diverticulitis, hypothyroid History of Any Multi-Drug Resistant Organisms: None Reported Past Surgical History: Section, Cholecystectomy, Heart Catheterization , Orthopedic Surgery Additional Past Surgical History / Comment(s): RT ANKLE- PLATE & SCREWS, COLONOSCOPIES, EGDs, Bronchial Thermoplasty X3., KENDALL CATARACTS with lens implants. DEVIATED SEPTUM SURGERY. MULTIPLE BRONCHOSCOPIES, bronchial thermoplasty. Past Anesthesia/Blood Transfusion Reactions: Family History of Problems w/ Anesthesia, Postoperative Nausea & Vomiting (PONV) Additional Past Anesthesia/Blood Transfusion Reaction / Comment(s): Pt has never received blood. DAUGHTER PONV Past Psychological History: No Psychological Hx Reported Smoking Status: Former smoker Past Alcohol Use History: None Reported Past Drug Use History: None Reported - Past Family History Father Family Medical History: Cancer Additional Family Medical History / Comment(s): colon Mother Family Medical History: Congestive Heart Failure (CHF) Additional Family Medical History / Comment(s): emphysema Daughter(s) Family Medical History: Deep Vein Thrombosis (DVT) General Exam - General Exam Comments Initial Comments: 66-year-old female. No acute distress. Limitations: no limitations General appearance: alert, in no apparent distress Head exam: Present: atraumatic, normocephalic, normal inspection Eye exam: Present: normal appearance, PERRL, EOMI. Absent: scleral icterus, conjunctival injection, periorbital swelling ENT exam: Present: normal exam, mucous membranes moist, other (Bleeding from the left near. Unable to visualize bleeding vessel.) Neck exam: Present: normal inspection. Absent: tenderness, meningismus, lymphadenopathy Respiratory exam: Present: normal lung sounds bilaterally. Absent: respiratory distress, wheezes, rales, rhonchi, stridor Cardiovascular Exam: Present: regular rate, normal rhythm, normal heart sounds. Absent: systolic murmur, diastolic murmur, rubs, gallop, clicks GI/Abdominal exam: Present: soft, normal bowel sounds. Absent: distended, tenderness, guarding, rebound, rigid Extremities exam: Present: normal inspection, full ROM, normal capillary refill. Absent: tenderness, pedal edema, joint swelling, calf tenderness Back exam: Present: normal inspection Neurological exam: Present: alert, oriented X3, CN II-XII intact Psychiatric exam: Present: normal affect, normal mood Skin exam: Present: warm, dry, intact, normal color. Absent: rash Course Vital Signs 03/31/17 03/31/17 22:17 23:22 Temperature 98.3 F Pulse Rate 95 86 Respiratory 20 20 Rate Blood Pressure 145/75 140/71 O2 Sat by Pulse 99 95 Oximetry Medical Decision Making - Medical Decision Making 66-year-old female presents to the ED chief complaint of a nosebleed for the past half hour. She reports that she had one earlier today for an hour and minutes.. She was up and this evening she was brushing her teeth when she started also replete blood again. Patient reports coming from the left nostril. Patient states that she is on xarelto. She states that she is trying to get it to stop. Patient denies any recent fever or chills.Patient on the clamp on her nose for 20 minutes. Patient's clamp was then removed and patient was revaluated. Patient has no further bleeding. Discussed that I would not like to have to do nasal cautery and I cannot identify the vessel this time without her bleeding. Patient agrees. Patient will be discharged and given any nasal Afrin spray to go home with if she does have a recurring nosebleed as well as nasal clamp. Discussed instructions with her and if it does recur. I advised patient to follow-up with her primary care provider. Patient agrees treatment plan will comply. Return parameters were discussed. Disposition Clinical Impression: Nasal bleeding Disposition: HOME SELF-CARE Condition: Good Instructions: Nosebleed (ED) Additional Instructions: Patient advised to apply the clamp after having a nasal spray of nose bleeding does recur, then wait 20 minutes. If this bleeding continues then reapply the nasal clamp for further 20 minutes. Follow-up with her primary care doctor. I also recommend getting an normal saline sprays to use in the nose for the next few days. Return to the emergency department if any alarming signs or symptoms occur. Referrals: Kacey Pelayo MD [Primary Care Provider] - 1-2 days Time of Disposition: 23:25
[2017-03-31] MEDS ORDERED: OXYMETAZOLINE 0.05% NASL SPRAY 15 ML NASAL STA (22:58)
[2017-03-31 23:24] VITALS: BP 140/71; PULSE 86
== END 2017-03-31 23:30 | disposition home or self-care (01) ==
LOC: EC 21:54
DX: R04.0 Epistaxis (principal); J45.909 Unspecified asthma, uncomplicated; J44.9 Chronic obstructive pulmonary disease, unspecified; E78.5 Hyperlipidemia, unspecified; E07.9 Disorder of thyroid, unspecified; Z86.711 Personal history of pulmonary embolism; Z87.891 Personal history of nicotine dependence; Z88.0 Allergy status to penicillin; Z88.1 Allergy status to other antibiotic agents; Z88.8 Allergy status to other drugs, medicaments and biological substances; Z91.018 Allergy to other foods; Z79.51 Long term (current) use of inhaled steroids; Z79.01 Long term (current) use of anticoagulants; Z79.899 Other long term (current) drug therapy
CPT/HCPCS: 99283

== ENCOUNTER → 2017-04-03 | Outpatient (CLI) | payer MEDICARE, BC ==
[2017-04-03 12:04] VITALS: BP 130/84; PULSE 78; RESP 18; TEMP 97.1
--- NOTE | 2017-04-03 12:22 | P.PN ---
Progress Note - Text Patient returns for followup for chronic back pain with radiation to hips and left lower extremity, occasionally past knee. Patient sustained a muscle strain in the left side of her abdomen and began to take baclofen and Neurontin more regularly; she has noticed a sense of jitteriness several hours after she takes the baclofen and Neurontin pills. She continues on Percocet, along with these medications for pain with decent relief. Today, pt denies new-onset weakness, bowel/bladder incontinence, or any other signs or symptoms of cauda equina syndrome. There are no signs of acute intoxication, and no indications of medication diversion or overuse. In addition to above, 13-point review of systems is also negative for chest pain , shortness of breath, changes in vision, changes in hearing, new onset weakness , abdominal pain, diarrhea, extreme fatigue, malaise, fever, skin changes, homicidal or suicidal ideation, or bowel or bladder incontinence. Vital Signs: Reviewed in EMR Gen: WDWN, AAOx3, NAD, walks with cane HEENT: NCAT, EOMI, hearing grossly normal Pulm: resp unlabored Abd: soft, NT, ND Neck: supple, trachea midline ROM in flexion lumbar spine: reduced ROM in extension lumbar spine: reduced Lumbar paravertebral tenderness: ++ Facet loading: + SI joint tenderness: + L > R Anuel's test: ++ L > R Straight leg raise: + L side, neg R side Lower extremity: strength intact Neuro: CN II-XII grossly intact, muscle strength lower extremities PRESERVED Imaging: Reviewed in EMR Assessment: 1. sacroiliitis 2. lumbar DDD 3. chronic pain syndrome Plan: 1. Explanation: Opioid and psychological risk scores were reviewed. Diagnoses , prognoses, and multiple treatment options including but not limited to physical therapy, interventional therapies, adjuvant medical therapies, narcotic medication therapies, and surgery were discussed with the patient and all questions were answered to the patient's satisfaction. 2. Opioid agreement: Patient has previously signed narcotic agreement, and was orally counseled to not overuse, abuse, divert, or cell medications, and to take them as prescribed by only 1 healthcare provider. The patient was also counseled to store opioid medications in a safe and preferably locked location. Patient was also counseled against driving while using narcotic medications and also to not use alcohol or any illicit or recreational drugs. The patient verbalized understanding that lack of compliance with any of the above and likely result in failure to renew narcotic prescriptions, possible discharge from the clinic, and possible legal ramifications thereafter if indicated. 3. Counseling: The patient was counseled extensively on BODY MASS INDEX, EXERCISE. Specifically, the patient was instructed regarding the importance of weight loss and exercise in the context of both chronic pain and overall health. 4. Procedures: none 5. Consultations: None 6. Investigations: None 7. Medications: Continue Percocet 7.5/325 BID #60 no refills + gabapentin 400 mg #60 no refills, decrease baclofen to 5 mg TID 8. Disposition: f/u for re-eval in 4 weeks; patient warned about baclofen withdrawal and its life-threatening nature (potential to cause seizures, etc.) and instructed to call clinic if she has any issues. PQRS measures: 1-Patient's medications are documented in the chart. 2-Tobacco use is negative 3-Patient has had a pneumococcal vaccine. 4-Advanced care planning discussed, patient unable to give. 5-Opioid contract signed with the patient. 6-Pain positive, follow-up visit or procedure scheduled 7-Patient's blood pressure measured and documented, and patient will follow up with the primary care due to hypertension. 8-Patient's weight was measured, and body mass index ABOVE the normal limits, and counseling was done. Patient instructed to follow up with PCP. 9-Patient WAS NOT identified as an unhealthy alcohol user.
== END | disposition home or self-care (01) ==
LOC: PNWHC3 11:33
PROVIDERS: ATTEND Anesthesiology
DX: M51.36 Other intervertebral disc degeneration, lumbar region (principal); G89.4 Chronic pain syndrome; M46.1 Sacroiliitis, not elsewhere classified
CPT/HCPCS: 99211

== ENCOUNTER → 2017-05-01 | Outpatient (CLI) | payer MEDICARE, BC ==
[2017-05-01 14:36] VITALS: BP 133/87; PULSE 78; RESP 18; TEMP 98.3
--- NOTE | 2017-05-01 15:00 | P.PN ---
Progress Note - Text Patient returns for followup for chronic back pain with radiation to hips and left lower extremity, occasionally past knee. Patient sustained a muscle strain in the left side of her abdomen and began to take baclofen and Neurontin more regularly but reduced dose has improved the jitteriness she has experienced substantially. She continues on Percocet, along with these medications for pain with decent relief. Today, pt denies new-onset weakness, bowel/bladder incontinence, or any other signs or symptoms of cauda equina syndrome. There are no signs of acute intoxication, and no indications of medication diversion or overuse. In addition to above, 13-point review of systems is also negative for chest pain , shortness of breath, changes in vision, changes in hearing, new onset weakness , abdominal pain, diarrhea, extreme fatigue, malaise, fever, skin changes, homicidal or suicidal ideation, or bowel or bladder incontinence. Vital Signs: Reviewed in EMR Gen: WDWN, AAOx3, NAD, walks with cane HEENT: NCAT, EOMI, hearing grossly normal Pulm: resp unlabored Abd: soft, NT, ND Neck: supple, trachea midline ROM in flexion lumbar spine: reduced ROM in extension lumbar spine: reduced Lumbar paravertebral tenderness: ++ Facet loading: + SI joint tenderness: + L > + R Anuel's test: ++ L > + R Lower extremity: strength intact Neuro: CN II-XII grossly intact, muscle strength lower extremities PRESERVED Imaging: Reviewed in EMR Assessment: 1. sacroiliitis 2. lumbar DDD 3. chronic pain syndrome Plan: 1. Explanation: Opioid and psychological risk scores were reviewed. Diagnoses , prognoses, and multiple treatment options including but not limited to physical therapy, interventional therapies, adjuvant medical therapies, narcotic medication therapies, and surgery were discussed with the patient and all questions were answered to the patient's satisfaction. 2. Opioid agreement: Patient has previously signed narcotic agreement, and was orally counseled to not overuse, abuse, divert, or cell medications, and to take them as prescribed by only 1 healthcare provider. The patient was also counseled to store opioid medications in a safe and preferably locked location. Patient was also counseled against driving while using narcotic medications and also to not use alcohol or any illicit or recreational drugs. The patient verbalized understanding that lack of compliance with any of the above and likely result in failure to renew narcotic prescriptions, possible discharge from the clinic, and possible legal ramifications thereafter if indicated. 3. Counseling: The patient was counseled extensively on BODY MASS INDEX, EXERCISE. Specifically, the patient was instructed regarding the importance of weight loss and exercise in the context of both chronic pain and overall health. 4. Procedures: repeat left SI RFA 5. Consultations: None 6. Investigations: None 7. Medications: Continue Percocet 7.5/325 BID #60 with one refill + gabapentin 400 mg #60 two refills, continue baclofen 5 mg TID with two refills 8. Disposition: f/u for procedure in 8 weeks PQRS measures: 1-Patient's medications are documented in the chart. 2-Tobacco use is negative 3-Patient has had a pneumococcal vaccine. 4-Advanced care planning discussed, patient unable to give. 5-Opioid contract signed with the patient. 6-Pain positive, follow-up visit or procedure scheduled 7-Patient's blood pressure measured and documented, and patient will follow up with the primary care due to hypertension. 8-Patient's weight was measured, and body mass index ABOVE the normal limits, and counseling was done. Patient instructed to follow up with PCP. 9-Patient WAS NOT identified as an unhealthy alcohol user.
== END ==
LOC: PNWHC3 13:44
PROVIDERS: ATTEND Anesthesiology
DX: M51.36 Other intervertebral disc degeneration, lumbar region (principal); M53.3 Sacrococcygeal disorders, not elsewhere classified; Z79.891 Long term (current) use of opiate analgesic; Z79.899 Other long term (current) drug therapy
CPT/HCPCS: 99211

== ENCOUNTER → 2017-06-18 | Outpatient (CLI) | payer MEDICARE, BC ==
--- NOTE | 2017-06-18 09:30 | XR ---
EXAMINATION TYPE: XR thoracic spine 2V DATE OF EXAM: 06/18/2017 CLINICAL HISTORY: Thoracic pain per order. Lower Back pain since 2014 per patient with new upper back pain for one month per patient. TECHNIQUE: Frontal, lateral, and swimmer's view of thoracic spine are obtained. COMPARISON: CTA chest February 24, 2017. Thoracic spine x-ray August 18, 2015. FINDINGS: Osseous structures are demineralized which is noted to lower radiographic sensitivity. Thor acic spine show satisfactory alignment without evidence of acute fracture or dislocation. Vertebral body heights are preserved. There is mild to moderate multilevel disc space narrowing and spurring mo st prominent in the mid to lower thoracic spine redemonstrated. Swimmer's view shows more prominent s purring and disc space narrowing in the visualized mid to lower cervical spine. Visualized ribs are u nremarkable. IMPRESSION: No acute fracture or dislocation is seen in the thoracic spine. Demineralization with mu ltilevel degenerative changes as detailed above.
--- NOTE | 2017-06-19 10:36 | MM ---
Reason for exam: screening (asymptomatic). Last mammogram was performed 1 year and 2 months ago. History: Patient is postmenopausal. Physical Findings: A clinical breast exam by your physician is recommended on an annual basis and results should be correlated with mammographic findings. MG 3D Screening Mammo W/Cad Bilateral CC and MLO view(s) were taken. Prior study comparison: May 02, 2016, bilateral MG 3d screening mammo w/cad. February 09, 2015, bilateral MG screening mammo w CAD. There are scattered fibroglandular densities. There is no discrete abnormality. No significant changes when compared with prior studies. ASSESSMENT: Negative, BI-RAD 1 RECOMMENDATION: Routine screening mammogram of both breasts in 1 year.
== END ==
LOC: RADMAMWWP 07:52
PROVIDERS: ATTEND Family Medicine
DX: Z12.31 Encounter for screening mammogram for malignant neoplasm of breast (principal); M47.814 Spondylosis without myelopathy or radiculopathy, thoracic region
CPT/HCPCS: 72070; 77063; G0202

== ENCOUNTER → 2017-07-02 | Outpatient (CLI) | payer MEDICARE, BC ==
[2017-07-02 11:36] VITALS: BP 108/71; PULSE 88; RESP 16; TEMP 98.1
--- NOTE | 2017-07-02 12:38 | P.PN ---
Subjective This is follow-up visit for this patient with a history of severe and chronic low back pain secondary to lumbar degenerative disc diseases , sacroiliitis. we have done interventional pain management injection, radiofrequency ablation of the sacroiliac joint, and that procedure provided her with significant pain relief, and she is currently on pain medication, 1-Percocet 7.5/325 every 8 hours when necessary 2-Neurontin 400 mg twice a day 3-baclofen 5 mg twice a day Patient denies any side effects of the medication, denies excessive drowsiness or sleepiness, denies suicidal ideation, and reports that the current pain medication is NOT helping To control the pain and improve activity of daily living Patient denies any motor or sensory deficit , patient denies any fever or night sweats, denies any change in the bowel movements or urination Physical Examinations : 1-Constitutiona : Cooperative , not in acute distress . 2-HEENT : nech ; supple , no Lymphadenopathy , no Thyromegaly , normal thyroid size . eyes : no ptosis , no icterus, no photophobia . ENT : normal of hearing , normal oropharynx , no Thrush . 3- Respiratory : Chest clear to auscultations Bilaterally , no wheezing , no Rhonchi . 4- Cardiovascular : regular rate and rhythem , S1 , S2 , no S3 , no S4. 5- Gastrointestinal : abdomen soft no tenderness , bowel sounds positive all four quadrents , no organomegally . 6- Genitourinary : Defferred . 7- neurologic : Cranial nerve II to XII intact , no focal neurological deffecit . 8-psychatric : alert , oriented X 3 , appropriate affect , intact judgment and insight . 9-Lymphatic : no Lymphadenopathy . 10- musculoskeltal : exams of the cervical spine = motor strength normal bilateral upper extremities facet loading test cervical area positive. exams of the Lumber spine = motor strength lower extremities ,thigh and legs .5/5 deep tendon reflexes : normal Knee Jerk , normal ankle Jerk . lumber facet Loading Test positive strait leg raising test positive at 30 degree , RT ,LT , Fabere test positive RT and positive LT . Range of motion: Range of motion in flexion of the lumbar spine 30 degrees Range of motion range of motion of extension of the lumbar spine 10 Sever tenderness over the Sacroiliac joint on the Right , and Left side Assessment and plan = Chronic low back pain secondary to lumbar degenerative disc disease , lumbar spondylosis with facet arthropathy without myelopathy ,sacroiliitis, chronic and current use of high-risk medication (Opioids). The patient was counseled about risk of opioid use, psychological risk associated with opioids and was orally counseled to not overuse , divert,or sell dictations to take medications as prescribed only , and to restore medication in safe location , and the patient counseled against driving while using narcotic medications, and also not to use alcohol or any illicit recreational drugs, the patient's verbalized understanding that the lack of compliance will result in failure to renew narcotic prescription and possible discharge from the clinic - diagnoses, prognosis, and treatment options including but not limited to physical therapy, surgical interventions, interventional therapies , and medication management including narcotics and adjuvant medication were discussed with the patient and all the questions answered Patient given prescription refill for Percocet 7.5/325 every 8 hours dispense 60 with 1 refill, Neurontin 400 mg twice a day and dispense 60 with 1 refill on baclofen 5 mg twice a day dispense 60 with 1 refill, and patient can be scheduled to have RFA of the dorsal ramus of L5-S1 on the lateral branches of S1/S2/S3, if it is approved by the insurance and also, Patient has to hold XERALTO befor the procedure Objective - Vital Signs Vital signs: Vital Signs Temp 98.1 F 07/02/17 11:31 Pulse 88 07/02/17 11:31 Resp 16 07/02/17 11:31 BP 108/71 07/02/17 11:31 Pulse Ox 94 L 07/02/17 11:31 Intake & Output 07/01/17 07/02/17 07/02/17 18:59 06:59 18:59 Weight 103.419 kg
== END | disposition home or self-care (01) ==
LOC: PNWHC3 11:17
PROVIDERS: ATTEND Specialist
DX: M51.36 Other intervertebral disc degeneration, lumbar region (principal); M47.816 Spondylosis without myelopathy or radiculopathy, lumbar region; M46.86 Other specified inflammatory spondylopathies, lumbar region
CPT/HCPCS: 99211

== ENCOUNTER → 2017-07-03 | Outpatient (CLI) | payer MEDICARE, BC ==
--- NOTE | 2017-07-03 08:57 | BD ---
EXAMINATION TYPE: MG DEXA axial skeleton. DATE OF EXAM: 07/03/2017 COMPARISON: 2006 DEXA report CLINICAL HISTORY: post menopausal female Height: 4'11 Weight: 233 FRAX RISK QUESTIONS: Alcohol (3 or more units per day): no Family History (Parent hip fracture): no Glucocorticoids (More than 3mos): yes (Ex: prednisone, prednisolone, methylprednisolone, dexamethasone, and hydrocortisone). History of Fracture in Adulthood: yes Secondary Osteoporosis: 1. Type 1 Diabetes: no 2. Hyperthyroidism: no 3. Menopause before 45: yes 4. Malnutrition: no 5. Chronic liver disease: no Rheumatoid Arthritis: no Current Tobacco Use: no RISK FACTORS HISTORY OF: Active: Postmenopausal woman: Lost more than 2 inches in height since high school: Poor Health: Adrenal Insufficiency: yes MEDICATIONS: Prednisone or other steroids: yes How Lon years Thyroid Medications: Which medication: Levothyroxine How Lon years Additional Medications: pt has COPD,XARELTO , pain meds Additional History: EXAM MEASUREMENTS: Bone mineral densitometry was performed using the Graph[employer] System. Bone mineral density as measured about the Lumbar spine is: ----- L1-L4(G/cm2): 1.161 T Score Values are as follows: ----- L2: -0.7 ----- L3: -0.3 ----- L4: 0.2 ----- L1-L4: -0.2 Bone mineral density has: Decreased -4.8% since study of: 09/19/2006 Bone mineral density about the R hip (g/cm2): 0.629 Bone mineral density about the L hip (g/cm2): 0.608 T Score values are as follows: -----R Neck: -2.9 -----L Neck: -3.1 -----R Total: -2.1 -----L Total: -2.1 Bone mineral density has: Decreased -17.2% since study of: 09/19/2006 IMPRESSION: Osteoporosis (T Score less than -2.5) as noted by T Score values at the: Femoral neck level in the Bi l Hips. Bone density felt falsely elevated in the low back due to reactive sclerosis as there is unde rlying scoliosis present. Bone density diminished from prior. There is increased fracture risk and th erapy is usually indicated based on age. Re-Screen 1-2 years. NOTE: T-SCORE=SD OF THE YOUNG ADULT MEAN.
[2017-07-03 08:58] LABS: ALT 30 U/L (9-52); AST 27 U/L (14-36); Cholesterol 140 mg/dL (<200); HDL Cholesterol 71 mg/dL (40-60)
== END | disposition home or self-care (01) ==
LOC: RADBDWWP 07:41
PROVIDERS: ATTEND Family Medicine
DX: M81.0 Age-related osteoporosis without current pathological fracture (principal)
CPT/HCPCS: 36415; 77080; 80061; 84450; 84460

== ENCOUNTER 2017-07-14 08:47 | Emergency (ER) | payer MEDICARE, BC ==
[2017-07-14] MEDS ORDERED: methylPREDNISolone SOD SUCCI 125 MG/2 ML VIAL IV STA (09:24)
[2017-07-14] MEDS ORDERED: ALBUTEROL NEBULIZED 2.5 MG/3 ML INHALATION STA (09:24)
[2017-07-14] MEDS ORDERED: SODIUM CHLORIDE 0.9% 1,000 ML IV STA (09:24)
[2017-07-14] MEDS ORDERED: IPRATROPIUM 0.5 MG/2.5 ML NEBU INHALATION STA (09:24)
[2017-07-14 09:55] LABS: Basophils % (A) 1 %; CH 29.5; CHCM 31.2; Eosinophils # (A) 0.4 k/uL (0-0.7); Eosinophils % (A) 5 %; HCT 42.6 % (34.0-46.0); HDW 2.18; HGB 13.6 gm/dL (11.4-16.0); Luc # (Auto) 0.22; Luc % (Auto) 3; Lymphocytes # (A) 0.8 k/uL (1.0-4.8); Lymphocytes % (A) 11 %; MCH 30.4 pg (25.0-35.0); MCHC 31.9 g/dL (31.0-37.0); MCV 95.3 fL (80.0-100.0); Monocytes # (A) 0.5 k/uL (0-1.0); Monocytes % (A) 6 %; Neutrophils # (A) 5.7 k/uL (1.3-7.7); Neutrophils % (A) 75 %; RBC 4.47 m/uL (3.80-5.40); RDW 13.3 % (11.5-15.5); WBC 7.7 k/uL (3.8-10.6); WBC (Perox) 8.12
[2017-07-14 10:15] LABS: ALT 24 U/L (9-52); AST 27 U/L (14-36); Alkaline Phosphatase 90 U/L (38-126); Anion Gap 9 mmol/L; Blood Urea Nitrogen 14 mg/dL (7-17); Calcium 9.2 mg/dL (8.4-10.2); Carbon Dioxide 25 mmol/L (22-30); Chloride 108 mmol/L (98-107); Creatine Kinase 57 U/L (30-135); Glucose 103 mg/dL (74-99); Non-African American GFR(MDRD) >60 (>60 ml/min/1.73 sqM); Sodium 142 mmol/L (137-145)
[2017-07-14 10:27] LABS: Creatine Kinase MB 0.7 ng/mL (0.0-2.4); Troponin I <0.012 ng/mL (0.000-0.034)
[2017-07-14 10:34] LABS: INR 1.1 (<1.2)
[2017-07-14 10:38] LABS: Partial Thromboplastin Time 25.4 sec (22.0-30.0)
--- NOTE | 2017-07-14 11:14 | XR ---
EXAMINATION TYPE: XR chest 2V DATE OF EXAM: 07/14/2017 HISTORY: difficulty breathing. REFERENCE: Previous study dated 03/24/2017. FINDINGS: The heart is upper limits of normal in size. The lungs are clear. Pleural spaces are clear. IMPRESSION: NO ACUTE INTRATHORACIC ABNORMALITY.
[2017-07-14 11:16] VITALS: RESP 18
--- NOTE | 2017-07-14 11:32 | ED ---
SOB HPI - General Chief Complaint: Shortness of Breath Stated Complaint: CECILIA Time Seen by Provider: 07/14/17 09:02 Source: patient Mode of arrival: wheelchair Limitations: no limitations - History of Present Illness Initial Comments: 67 years old female had a block done on , since then she been coughing quite a bit she is bringing up with yellow-green phlegm she also spiked a fever off and on for last 3 days and she is a current smoker he was used to be smoker quit quite a long time ago. Denies any headaches no neck stiffness no chest pain no pleuritic chest pain she does complain about some pain which he takes a deep breath. Denies any abdominal pain no frequency urgency dysuria no sinus symptoms of TIA or CVA - Related Data Home Medications Medication Instructions Recorded Confirmed Fluticasone Propionate [Flovent 2 puff INHALATION RT-BID 10/19/14 07/11/17 Hfa 220MCG] Furosemide [Lasix] 20 mg PO DAILY PRN 10/19/14 07/11/17 Potassium Chloride [Klor-Con 10] 10 meq PO DAILY PRN 10/19/14 07/11/17 Salmeterol Xinafoate [Serevent 1 puff INHALATION RT-BID 10/19/14 07/11/17 Diskus] Albuterol Inhaler [Ventolin Hfa 2 puff INHALATION RT-Q6H PRN 11/05/14 07/11/17 Inhaler] Niacin 500 mg PO DAILY@1200 03/08/15 07/11/17 [place]-3 Fatty Acids [[place]-3] 1,000 mg PO DAILY #0 03/08/15 07/11/17 Calcium Carbonate/Vitamin D3 2 tab PO PC-SUPPER 06/25/15 07/11/17 [Calcium 600-Vit D3 400 Tablet] Levothyroxine Sodium [Synthroid] 112 mcg PO QAM 09/15/15 07/11/17 Rivaroxaban [Xarelto] 20 mg PO QAM 11/15/15 07/11/17 Cetirizine HCl [Zyrtec] 10 mg PO DAILY PRN 01/27/16 07/11/17 Esomeprazole Magnesium [NexIUM] 40 mg PO QAM 04/05/16 07/11/17 Multivitamin [Multivitamins Adult 2 tab PO DAILY 05/07/16 07/11/17 Gummies] Azithromycin [Zithromax] 250 mg PO MOWEFR 08/08/16 07/11/17 Vit C/E/Zn/Coppr/Lutein/Zeaxan 1 cap PO BID 01/09/17 07/11/17 [Preservision Areds 2 Softgel] Docusate [Colace] 100 mg PO DAILY PRN 02/24/17 07/11/17 Hydrocortisone [Cortef] 5 mg PO DAILY@1500 02/24/17 07/11/17 Hydrocortisone [Cortef] 15 mg PO QAM 02/24/17 07/11/17 Ubidecarenone [Co Q-10] 200 mg PO HS 02/24/17 07/11/17 Multivit-Min/Iron/Folic/Mes263 2 tab PO DAILY@1200 03/31/17 07/11/17 [Hair, Skin and Nails Tablet] Metoprolol Tartrate 25 mg PO DAILY 07/02/17 07/11/17 Rosuvastatin [Crestor] 5 mg PO HS 07/02/17 07/11/17 Fexofenadine HCl [Flora Allergy] 180 mg PO DAILY 07/10/17 07/11/17 Previous Rx's Medication Instructions Recorded Baclofen 5 mg PO TID PRN #60 tab 07/02/17 Gabapentin [Neurontin] 400 mg PO BID #60 07/02/17 oxyCODONE-APAP 7.5-325MG [Percocet 1 tab PO BID PRN #60 tab 07/02/17 7.5-325 mg] Clarithromycin [Biaxin] 500 mg PO Q12HR #20 tab 07/14/17 Allergies Allergy/AdvReac Type Severity Reaction Status Date / Time cefuroxime axetil Allergy Dyspnea Verified 07/14/17 08:53 [From Ceftin] moxifloxacin HCl Allergy Dyspnea Verified 07/14/17 08:53 [From Avelox] Penicillins Allergy Dyspnea Verified 07/14/17 08:53 rofecoxib [From Vioxx] Allergy Dyspnea Verified 07/14/17 08:53 blackberry Allergy Rash/Hives Uncoded 07/14/17 08:53 Review of Systems ROS Statement: Those systems with pertinent positive or pertinent negative responses have been documented in the HPI. ROS Other: All systems not noted in ROS Statement are negative. 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 MTHFR GENE. STUCCO KERATOSIS, past fxs of L foot and R ankle, sciatic problems, diverticulitis, hypothyroid History of Any Multi-Drug Resistant Organisms: None Reported Past Surgical History: Section, Cholecystectomy, Heart Catheterization , Orthopedic Surgery Additional Past Surgical History / Comment(s): RT ANKLE- PLATE & SCREWS, COLONOSCOPIES, EGDs, Bronchial Thermoplasty X3., MINH CATARACTS with lens implants. DEVIATED SEPTUM SURGERY. MULTIPLE BRONCHOSCOPIES, bronchial thermoplasty Past Anesthesia/Blood Transfusion Reactions: Family History of Problems w/ Anesthesia, Postoperative Nausea & Vomiting (PONV) Additional Past Anesthesia/Blood Transfusion Reaction / Comment(s): Pt has never received blood. DAUGHTER PONV Past Psychological History: No Psychological Hx Reported Smoking Status: Former smoker Past Alcohol Use History: None Reported Past Drug Use History: None Reported - Past Family History Father Family Medical History: Cancer Additional Family Medical History / Comment(s): colon Mother Family Medical History: Congestive Heart Failure (CHF) Additional Family Medical History / Comment(s): emphysema Daughter(s) Family Medical History: Deep Vein Thrombosis (DVT) General Exam Limitations: no limitations Course Vital Signs 07/14/17 07/14/17 07/14/17 08:49 09:44 10:00 Temperature 99 F Pulse Rate 98 87 84 Respiratory 26 H 18 Rate Blood Pressure 171/70 128/59 O2 Sat by Pulse 96 98 Oximetry 07/14/17 07/14/17 10:06 11:00 Temperature Pulse Rate 88 94 Respiratory 18 Rate Blood Pressure 138/67 O2 Sat by Pulse 98 Oximetry EKG is normal sinus rhythm ventricular rate is 92 ID interval is 134 QRS duration is 78 QT/QTc is 358/442 this EKG revealed no ST elevation noticed a T- wave inversion in lead 3 - Reevaluation(s) Reevaluation #1: 07/14/17 11:23 Patient is reassessed at 1120, she feels better I reviewed all the labs and imaging reports with her her CBC, d-dimer, INR, troponin, EKG, chest x-ray all unremarkable she feels better and she wants to go home she has appointment with Dr. Paige her human resources trainer rigidity, no Medical Decision Making - Lab Data Result diagrams: 07/14/17 09:40 07/14/17 09:40 Lab Results 07/14/17 07/14/17 07/14/17 Range/Units 09:40 09:40 09:40 WBC 7.7 (3.8-10.6) k/uL RBC 4.47 (3.80-5.40) m/uL Hgb 13.6 (11.4-16.0) gm/dL Hct 42.6 (34.0-46.0) % MCV 95.3 (80.0-100.0) fL MCH 30.4 (25.0-35.0) pg MCHC 31.9 (31.0-37.0) g/dL RDW 13.3 (11.5-15.5) % Plt Count 231 (150-450) k/uL Neutrophils % 75 % Lymphocytes % 11 % Monocytes % 6 % Eosinophils % 5 % Basophils % 1 % Neutrophils # 5.7 (1.3-7.7) k/uL Lymphocytes # 0.8 L (1.0-4.8) k/uL Monocytes # 0.5 (0-1.0) k/uL Eosinophils # 0.4 (0-0.7) k/uL Basophils # 0.0 (0-0.2) k/uL PT (9.0-12.0) sec INR (<1.2) APTT (22.0-30.0) sec D-Dimer (<0.60) mg/L FEU Sodium 142 (137-145) mmol/L Potassium 4.0 (3.5-5.1) mmol/L Chloride 108 H (98-107) mmol/L Carbon Dioxide 25 (22-30) mmol/L Anion Gap 9 mmol/L BUN 14 (7-17) mg/dL Creatinine 0.74 (0.52-1.04) mg/dL Est GFR (MDRD) Af Amer >60 (>60 ml/min/1.73 sqM) Est GFR (MDRD) Non-Af >60 (>60 ml/min/1.73 sqM) Glucose 103 H (74-99) mg/dL Calcium 9.2 (8.4-10.2) mg/dL Total Bilirubin 1.0 (0.2-1.3) mg/dL AST 27 (14-36) U/L ALT 24 (9-52) U/L Alkaline Phosphatase 90 (38-126) U/L Total Creatine Kinase 57 (30-135) U/L CK-MB (CK-2) 0.7 (0.0-2.4) ng/mL CK-MB (CK-2) Rel Index 1.2 Troponin I <0.012 (0.000-0.034) ng/mL NT-Pro-B Natriuret Pep pg/mL Total Protein 7.0 (6.3-8.2) g/dL Albumin 3.7 (3.5-5.0) g/dL 07/14/17 07/14/17 Range/Units 09:40 09:40 WBC (3.8-10.6) k/uL RBC (3.80-5.40) m/uL Hgb (11.4-16.0) gm/dL Hct (34.0-46.0) % MCV (80.0-100.0) fL MCH (25.0-35.0) pg MCHC (31.0-37.0) g/dL RDW (11.5-15.5) % Plt Count (150-450) k/uL Neutrophils % % Lymphocytes % % Monocytes % % Eosinophils % % Basophils % % Neutrophils # (1.3-7.7) k/uL Lymphocytes # (1.0-4.8) k/uL Monocytes # (0-1.0) k/uL Eosinophils # (0-0.7) k/uL Basophils # (0-0.2) k/uL PT 11.0 (9.0-12.0) sec INR 1.1 (<1.2) APTT 25.4 (22.0-30.0) sec D-Dimer 0.29 (<0.60) mg/L FEU Sodium (137-145) mmol/L Potassium (3.5-5.1) mmol/L Chloride (98-107) mmol/L Carbon Dioxide (22-30) mmol/L Anion Gap mmol/L BUN (7-17) mg/dL Creatinine (0.52-1.04) mg/dL Est GFR (MDRD) Af Amer (>60 ml/min/1.73 sqM) Est GFR (MDRD) Non-Af (>60 ml/min/1.73 sqM) Glucose (74-99) mg/dL Calcium (8.4-10.2) mg/dL Total Bilirubin (0.2-1.3) mg/dL AST (14-36) U/L ALT (9-52) U/L Alkaline Phosphatase (38-126) U/L Total Creatine Kinase (30-135) U/L CK-MB (CK-2) (0.0-2.4) ng/mL CK-MB (CK-2) Rel Index Troponin I (0.000-0.034) ng/mL NT-Pro-B Natriuret Pep 59 pg/mL Total Protein (6.3-8.2) g/dL Albumin (3.5-5.0) g/dL Disposition Clinical Impression: Bronchitis Disposition: HOME SELF-CARE Condition: Good Instructions: Bronchiolitis (ED) Prescriptions: Clarithromycin [Biaxin] 500 mg PO Q12HR #20 tab Referrals: Kacey Pelayo MD [Primary Care Provider] - 1-2 days
[2017-07-14 11:49] VITALS: BP 140/69; PULSE 84; TEMP 98.1
== END 2017-07-14 11:47 | disposition home or self-care (01) ==
LOC: EC 08:47
DX: J40 Bronchitis, not specified as acute or chronic (principal); E03.9 Hypothyroidism, unspecified; Z87.891 Personal history of nicotine dependence; Z79.01 Long term (current) use of anticoagulants; Z79.51 Long term (current) use of inhaled steroids; Z79.52 Long term (current) use of systemic steroids; Z79.899 Other long term (current) drug therapy; Z88.0 Allergy status to penicillin; Z88.1 Allergy status to other antibiotic agents; Z88.8 Allergy status to other drugs, medicaments and biological substances; Z91.018 Allergy to other foods; Z86.711 Personal history of pulmonary embolism; Z82.5 Family history of asthma and other chronic lower respiratory diseases
CPT/HCPCS: 99285 ×2; 96374 ×2; 96361 ×3; 36415; 94640; 93005; 85379; 83880; 80053; 82550; 82553; 84484; 85025; 85610; 85730; 87040; 71020; J2930

== ENCOUNTER 2017-08-02 17:57 | Observation (INO) | payer MEDICARE, BC ==
[2017-08-02] MEDS ORDERED: NITROGLYCERIN SL TABS 0.4 MG TAB SUBLINGUAL PRN ×2 (18:19→19:39)
[2017-08-02 18:34] LABS: Basophils % (A) 0 %; CH 28.9; CHCM 31.3; Eosinophils # (A) 0.1 k/uL (0-0.7); Eosinophils % (A) 1 %; HCT 42.9 % (34.0-46.0); HDW 2.11; HGB 13.9 gm/dL (11.4-16.0); Luc # (Auto) 0.26; Luc % (Auto) 2; Lymphocytes # (A) 1.3 k/uL (1.0-4.8); Lymphocytes % (A) 12 %; MCH 30.3 pg (25.0-35.0); MCHC 32.5 g/dL (31.0-37.0); MCV 93.1 fL (80.0-100.0); Mean Platelet Volume 8.7; Monocytes # (A) 0.7 k/uL (0-1.0); Monocytes % (A) 7 %; Neutrophils # (A) 8.5 k/uL (1.3-7.7); Neutrophils % (A) 78 %; RDW 14.5 % (11.5-15.5); WBC 10.9 k/uL (3.8-10.6); WBC (Perox) 10.85
[2017-08-02 18:47] LABS: ALT 33 U/L (9-52); AST 21 U/L (14-36); Alkaline Phosphatase 74 U/L (38-126); Anion Gap 8 mmol/L; Blood Urea Nitrogen 21 mg/dL (7-17); Calcium 9.3 mg/dL (8.4-10.2); Carbon Dioxide 26 mmol/L (22-30); Chloride 108 mmol/L (98-107); Glucose 90 mg/dL (74-99); Non-African American GFR(MDRD) >60 (>60 ml/min/1.73 sqM); Potassium 4.5 mmol/L (3.5-5.1); Sodium 142 mmol/L (137-145); Total Bilirubin 0.8 mg/dL (0.2-1.3); Total Protein 6.9 g/dL (6.3-8.2)
--- NOTE | 2017-08-02 18:53 | ED ---
Chest Pain HPI - General Chief Complaint: Chest Pain Stated Complaint: chest pain Time Seen by Provider: 08/02/17 18:10 Source: patient, EMS Mode of arrival: EMS Limitations: no limitations - History of Present Illness Initial Comments: This is a 67-year-old female with a history of tracheobronchiomalacia, PE, and CHF are on Zarrella toe, and chronic lower back pain who presents emergency report for sudden onset of thoracic back pain that radiate around to her substernal area. She states that the back pain felt like a squeezing and gripping type sensation which is also she describes the chest pain. She denies any worsening shortness of breath or cough than her baseline. She states that she did not feel lightheaded. She was given an aspirin by EMS and feels slightly improved however still having some persistent symptoms. She denies any history of heart problems. She does admit to a history of DVT and PE in the past due to her and CHF are however has been compliant with her Zarrella toe. She did have a bronchoscopy at the beginning of the month and was treated afterwards with steroids and antibiotics. She denies any nausea or vomiting. No abdominal pain. No diarrhea. No lightheadedness currently. No other complaints. - Related Data Home Medications Medication Instructions Recorded Confirmed Fluticasone Propionate [Flovent 2 puff INHALATION RT-BID 10/19/14 08/02/17 Hfa 220MCG] Furosemide [Lasix] 20 mg PO DAILY PRN 10/19/14 08/02/17 Potassium Chloride [Klor-Con 10] 10 meq PO DAILY PRN 10/19/14 08/02/17 Salmeterol Xinafoate [Serevent 1 puff INHALATION RT-BID 10/19/14 08/02/17 Diskus] Albuterol Inhaler [Ventolin Hfa 2 puff INHALATION RT-Q6H PRN 11/05/14 08/02/17 Inhaler] Niacin 500 mg PO DAILY@1200 03/08/15 08/02/17 [place]-3 Fatty Acids [[place]-3] 1,000 mg PO DAILY #0 03/08/15 08/02/17 Calcium Carbonate/Vitamin D3 2 tab PO PC-SUPPER 06/25/15 08/02/17 [Calcium 600-Vit D3 400 Tablet] Levothyroxine Sodium [Synthroid] 112 mcg PO QAM 09/15/15 08/02/17 Rivaroxaban [Xarelto] 20 mg PO QAM 11/15/15 08/02/17 Cetirizine HCl [Zyrtec] 10 mg PO DAILY PRN 01/27/16 08/02/17 Esomeprazole Magnesium [NexIUM] 40 mg PO QAM 04/05/16 08/02/17 Multivitamin [Multivitamins Adult 2 tab PO DAILY 05/07/16 08/02/17 Gummies] Azithromycin [Zithromax] 250 mg PO MOWEFR 08/08/16 08/02/17 Vit C/E/Zn/Coppr/Lutein/Zeaxan 1 cap PO BID 01/09/17 08/02/17 [Preservision Areds 2 Softgel] Docusate [Colace] 100 mg PO DAILY PRN 02/24/17 08/02/17 Hydrocortisone [Cortef] 5 mg PO DAILY@1500 02/24/17 08/02/17 Hydrocortisone [Cortef] 15 mg PO QAM 02/24/17 08/02/17 Ubidecarenone [Co Q-10] 200 mg PO HS 02/24/17 08/02/17 Multivit-Min/Iron/Folic/Qvu323 2 tab PO DAILY@1200 03/31/17 08/02/17 [Hair, Skin and Nails Tablet] Metoprolol Tartrate 25 mg PO DAILY 07/02/17 08/02/17 Rosuvastatin [Crestor] 5 mg PO HS 07/02/17 08/02/17 Baclofen 5 mg PO TID PRN 08/02/17 08/02/17 Ipratropium-Albuterol Nebulize 3 ml INHALATION RT-QID PRN 08/02/17 08/02/17 [Duoneb 0.5 mg-3 mg/3 ml Soln] Zolpidem [Ambien] 2.5 mg PO HS PRN 08/02/17 08/02/17 hydrOXYzine PAMOATE [Vistaril] 50 mg PO DAILY PRN 08/02/17 08/02/17 Previous Rx's Medication Instructions Recorded Gabapentin [Neurontin] 400 mg PO BID #60 07/02/17 oxyCODONE-APAP 7.5-325MG [Percocet 1 tab PO BID PRN #60 tab 07/02/17 7.5-325 mg] Allergies Allergy/AdvReac Type Severity Reaction Status Date / Time cefuroxime axetil Allergy Dyspnea Verified 08/02/17 18:09 [From Ceftin] moxifloxacin HCl Allergy Dyspnea Verified 08/02/17 18:09 [From Avelox] Penicillins Allergy Dyspnea Verified 08/02/17 18:09 rofecoxib [From Vioxx] Allergy Dyspnea Verified 08/02/17 18:09 blackberry Allergy Rash/Hives Uncoded 08/02/17 18:05 Review of Systems ROS Statement: Those systems with pertinent positive or pertinent negative responses have been documented in the HPI. ROS Other: All systems not noted in ROS Statement are negative. EKG Findings - EKG Comments: EKG Findings:: EKG showing normal sinus rhythm with a rate of 77. There is some T-wave flattening in V2 and V3 with mild ST depression and T-wave inversion in lead 3. Otherwise no abnormal ST segment changes or T-wave inversions. QTC 423. Other intervals normal. No ectopy. 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 MTHFR GENE. STUCCO KERATOSIS, past fxs of L foot and R ankle, sciatic problems, diverticulitis, hypothyroid History of Any Multi-Drug Resistant Organisms: None Reported Past Surgical History: Section, Cholecystectomy, Heart Catheterization , Orthopedic Surgery Additional Past Surgical History / Comment(s): RT ANKLE- PLATE & SCREWS, COLONOSCOPIES, EGDs, Bronchial Thermoplasty X3., [place] CATARACTS with lens implants. DEVIATED SEPTUM SURGERY. MULTIPLE BRONCHOSCOPIES, bronchial thermoplasty Past Anesthesia/Blood Transfusion Reactions: Family History of Problems w/ Anesthesia, Postoperative Nausea & Vomiting (PONV) Additional Past Anesthesia/Blood Transfusion Reaction / Comment(s): Pt has never received blood. DAUGHTER PONV Past Psychological History: No Psychological Hx Reported Smoking Status: Former smoker Past Alcohol Use History: None Reported Past Drug Use History: None Reported - Past Family History Father Family Medical History: Cancer Additional Family Medical History / Comment(s): colon Mother Family Medical History: Congestive Heart Failure (CHF) Additional Family Medical History / Comment(s): emphysema Daughter(s) Family Medical History: Deep Vein Thrombosis (DVT) General Exam - General Exam Comments Initial Comments: Constitutional: Awake alert Appears comfortable Head: Normocephalic atraumatic Eyes: no conjunctival injection No scleral icterus EOMI Neck: No JVD Supple Heart: Regular rate rhythm normal S1-S2 no murmurs Lungs: Bilateral inspiratory and expiratory wheezing and rhonchi Abdomen: Soft nondistended nontender Back: There is tenderness to palpation along the thoracic spine Extremities: Non edematous DP pulses intact Radial pulses intact Neuro: A&Ox3 No focal neurologic deficits Psych: Appropriate mood and affect Limitations: no limitations Course Vital Signs 08/02/17 08/02/17 18:01 18:21 Temperature 98.5 F Pulse Rate 81 82 Respiratory 20 21 Rate Blood Pressure 156/78 127/74 O2 Sat by Pulse 99 97 Oximetry Chest Pain MDM - MDM This is a 67-year-old female who presented for an episode of chest pain and back pain. Pain is resolved without any intervention. She received aspirin in route to the hospital. Due to her history of to keep her in the hospital for further cardiac workup. Troponin here is negative and EKG appeared unchanged from previous. Dr. Good accepts the admission. Dr. Lange was placed on consult. The patient family were updated and agree. Disposition Clinical Impression: Unstable angina Disposition: ADMITTED IP TO THIS HOSP Condition: Stable Referrals: Kacey Pelayo MD [Primary Care Provider] - 1-2 days
--- NOTE | 2017-08-02 19:00 | XR ---
EXAMINATION TYPE: XR chest 2V DATE OF EXAM: 08/02/2017 COMPARISON: 07/14/2017 HISTORY: Back pain TECHNIQUE: Frontal and lateral views of the chest are obtained. FINDINGS: Heart is enlarged. There is no heart failure. Lungs are clear of consolidation. There is m ild coarsening of interstitial markings. There is no pleural effusion. IMPRESSION: Mild cardiomegaly. Mild pulmonary fibrotic changes. No change compared to old exam.
[2017-08-02 19:01] LABS: INR 1.1 (<1.2); Partial Thromboplastin Time 24.3 sec (22.0-30.0); Prothrombin Time 11.1 sec (9.0-12.0)
--- NOTE | 2017-08-02 19:02 | XR ---
EXAMINATION TYPE: XR thoracic spine 2V DATE OF EXAM: 08/02/2017 COMPARISON: None HISTORY: Back pain TECHNIQUE: 3 views FINDINGS: Thoracic vertebra have fairly normal alignment. I see no compression fracture. Elements are intact. There is no paraspinal mass. There is minor spurring of the endplates in the lower thoracic spine. IMPRESSION: Mild degenerative changes. No fracture. Spine appears stable compared to the lateral ches t x-ray of 12/23/2015.
[2017-08-02 19:07] LABS: Creatine Kinase MB 0.8 ng/mL (0.0-2.4); Troponin I <0.012 ng/mL (0.000-0.034)
[2017-08-02] MEDS ORDERED: HEPARIN SODIUM,PORCINE 5,000 UNIT/ML 1 ML VIAL IV ONE (19:39)
[2017-08-02] MEDS ORDERED: HEPARIN SODIUM,PORCINE/D5W PMX 25,000 UNIT in DEXTROSE/WATER 1 500ML.BAG IV SCH (19:45)
[2017-08-02 20:56] VITALS: BMI 45.5
[2017-08-02] MEDS ORDERED: ALBUTEROL INHALER 60 PUFF/8 GM INHALER INHALATION PRN (21:07)
[2017-08-02] MEDS ORDERED: POTASSIUM CHLORIDE ER 10 MEQ TAB.ER.PRT PO PRN (21:07)
[2017-08-02] MEDS ORDERED: DOCUSATE 100 MG CAP PO PRN (21:07)
[2017-08-02] MEDS ORDERED: ZOLPIDEM 5 MG TAB PO PRN (21:07)
[2017-08-02] MEDS ORDERED: LORATADINE 10 MG TAB PO PRN (21:07)
[2017-08-02] MEDS ORDERED: hydrOXYzine PAMOATE 25 MG CAP PO PRN (21:07)
[2017-08-02] MEDS ORDERED: FUROSEMIDE 20 MG TAB PO PRN (21:07)
[2017-08-02] MEDS ORDERED: BACLOFEN 10 MG TAB PO PRN (21:07)
[2017-08-02] MEDS ORDERED: IPRATROPIUM-ALBUTEROL 3 ML NEB INHALATION PRN (21:07)
[2017-08-02] MEDS ORDERED: LATANOPROST 0.005% OPHTH DROPS 2.5 ML BTL BOTH EYES SCH (21:15)
[2017-08-02] MEDS: GABAPENTIN 400 MG CAP PO SCH (22:14)
[2017-08-02] MEDS: VIT A,C & E-LUTEIN-MINERALS 1 EACH TAB PO SCH (22:14)
[2017-08-02] MEDS ORDERED: ATORVASTATIN 10 MG TAB PO SCH (22:15)
[2017-08-02] MEDS: oxyCODONE-APAP 7.5-325MG 1 EACH TAB PO PRN (22:42)
[2017-08-03 01:15] LABS: Creatine Kinase 60 U/L (30-135)
[2017-08-03 01:28] LABS: Creatine Kinase MB 0.6 ng/mL (0.0-2.4); Troponin I <0.012 ng/mL (0.000-0.034)
[2017-08-03] MEDS ORDERED: LEVOTHYROXINE 112 MCG TAB PO SCH (06:30)
--- NOTE | 2017-08-03 07:05 | HP ---
HISTORY AND PHYSICAL CHIEF COMPLAINT: Chest pain. HISTORY OF PRESENT ILLNESS: This 66-year-old woman with a past history of COPD, hypertension, hyperlipidemia , history of pneumonia, hypothyroidism, being followed by Dr. Kacey Pelayo in the outpatient setting, was complaining of chest pain. The patient initially had sharp chest pain at 4 o'clock in the evening which lasted for several hours, waxing and waning in character. The pain is radiating to the front. There is no history of palpitation, or hematochezia or melena. Patient also had worsening cough and shortness of because of respiratory problems according to her. There is no history of any fever, rigors. No history of headache, loss conscious or seizures. PAST MEDICAL HISTORY: History of asthma, COPD, hypertension, hyperlipidemia, DJD, pneumonia, hypothyroidism. MEDICATIONS: Prior to admission include, home medications are reviewed and include: 1. Vitamin Zinc 1 capsule p.o. b.i.d. 2. Coenzyme Q 20 mg q.h.s. 3. Serevent 1 puff b.i.d. 4. Crestor 5 mg p.o. q.h.s. 5. Neurontin 400 mg p.o. b.i.d. 6. Baclofen 5 mg p.o. t.i.d. 7. Percocet 1 tab b.i.d. p.r.n. 8. Restoril 50 mg daily p.r.n. 9. Ambien 2.5 mg q.h.s. p.r.n. 10.Xarelto 20 mg p.r.n. 11.Klor-Con 10 mg p.o. daily. 12.[place]-3 1000 daily. 13.Niacin 500 mg p.o. daily. 14.Multivitamins 1 p.o. daily. 15.Metoprolol 25 mg p.o. daily. 16.Synthroid 112 mcg p.o. daily. 17.DuoNeb q.i.d. and p.r.n. 18.Cortef 50 mg q.a.m. and 5 mg daily. 19.Lasix 20 mg daily. 20.Flovent 2 puffs b.i.d. 21.Nexium 40 mg daily. 22.Colace 100 mg daily p.r.n. 24.Calcium with vitamin D, 2 tablets supper. 25. 250 mg Saturday, Saturday and Saturday. 26.Ventolin HFA 2 puffs q.6h p.r.n. ALLERGIES: CEFUROXIME, AVELOX, PENICILLIN, VIOXX FAMILY HISTORY: History of colon cancer in the family. SOCIAL HISTORY: History of smoking. No history of current smoking or alcohol intake. REVIEW OF SYSTEMS: ENT: No diminished hearing or vision. CARDIOVASCULAR: As mentioned earlier. GI: No nausea. : No dysuria. NERVOUS SYSTEM: No numbness. ALLERGY/IMMUNOLOGY: As mentioned earlier. MUSCULOSKELETAL: As mentioned earlier. HEMATOLOGY: neg ENDOCRINE: Hypothyroid. CONSTITUTIONAL: As mentioned earlier. PSYCHIATRIC: As mentioned earlier. PHYSICAL EXAM: Patient is alert, oriented. Pulse 82, blood pressure 127/75, respiratory 20, temperature 98.5, pulse ox 97% on 2 L HEENT: Conjunctivae normal. Oral mucosa moist. NECK: No jugular venous distention. No lymph node enlargement. CARDIOVASCULAR: Muffled S1/S2. RESPIRATORY: Diminished breath sounds especially in the bases. Scattered rhonchi. No crackles. ABDOMEN: Soft, nontender. No mass palpable. LEGS: No edema, no swelling. NERVOUS SYSTEM: Higher functions as mentioned. No focal motor deficits. LYMPHATICS: No lymph node in neck and axilla. SKIN: No rash. LABS: WBC 10.2, hemoglobin 13.9 sodium 140, potassium 4.5. ASSESSMENT: 1. Back and chest pain, rule out unstable angina, possibly musculoskeletal pain. 2. COPD, asthma. 3. Hyperlipidemia. 4. Degenerative joint disease. 5. History of pneumonia. 6. Hypothyroidism. 7. Adrenal insufficiency. 8. Irritable bowel syndrome. 9. Migraines. RECOMMENDATIONS AND DISCUSSION: This 67-year-old woman who presented with multiple complex medical issues, we will monitor the patient closely, continue the current management, rule out myocardial infarction. Otherwise, the patient is already on Xarelto. I would recommend stopping heparin and continue the rest of medications. Cardiology consultation. Possible stress test as an outpatient. Prognosis guarded because of multiple complex issues. Condition discussed with the patient who understands. MMODL / IJN: [id number] / MTDD
[2017-08-03 07:21] LABS: Cholesterol 137 mg/dL (<200); HDL Cholesterol 70 mg/dL (40-60)
[2017-08-03 07:23] LABS: Creatine Kinase 42 U/L (30-135)
[2017-08-03] MEDS ORDERED: RIVAROXABAN 10 MG TAB PO SCH (07:30)
[2017-08-03] MEDS ORDERED: PANTOPRAZOLE 40 MG TABLET PO SCH (07:30)
[2017-08-03 07:37] LABS: Creatine Kinase MB 0.7 ng/mL (0.0-2.4); Troponin I <0.012 ng/mL (0.000-0.034)
[2017-08-03] MEDS ORDERED: BUDESONIDE 1 MG/2 ML NEBU INHALATION SCH (08:00)
[2017-08-03] MEDS ORDERED: FORMOTEROL FUMARATE 20 MCG/2 ML NEBU INHALATION SCH (08:00)
[2017-08-03] MEDS ORDERED: RX INFO: IV CONTRAST WAS GIVEN 1 EACH MISC MISCELLANE PRN (08:27)
[2017-08-03] MEDS: oxyCODONE-APAP 7.5-325MG 1 EACH TAB PO PRN (08:56)
[2017-08-03] MEDS ORDERED: HYDROCORTISONE 10 MG TAB PO SCH ×2 (09:00→15:00)
[2017-08-03] MEDS ORDERED: NON-FORMULARY DRUG (Omega-3 Fatty Acids [Omega-3] 1,000 MG) PO SCH (09:00)
[2017-08-03] MEDS ORDERED: METOPROLOL TARTRATE 25 MG TAB PO SCH (09:00)
[2017-08-03] MEDS ORDERED: ASPIRIN 325 MG TAB PO SCH (09:00)
[2017-08-03] MEDS: GABAPENTIN 400 MG CAP PO SCH (09:51)
--- NOTE | 2017-08-03 09:57 | CT ---
EXAMINATION TYPE: CT angio chest DATE OF EXAM: 08/03/2017 9:41 AM COMPARISON: Previous study dated 02/24/2017 HISTORY: PE vs dissection, CECILIA, back pain CT DLP: 479.6 mGycm Automated exposure control for dose reduction was used. CONTRAST: CTA scan of the thorax is performed with IV Contrast, patient injected with 100 mL of Omnipaque 350, pulmonary embolism protocol. 20 cc of contrast extravasated The end of the injection.. FINDINGS: There is dependent atelectasis at the dependent portions of both lungs. There is also atele ctatic change in the right middle lobe. No parenchymal lesions are seen. There is no significant axillary, internal mammary, mediastinal or hilar adenopathy. There is no evidence of pulmonary embolus. The aorta is normal in caliber without evidence of dissect ion. There is no pleural or pericardial fluid. The heart is enlarged. The gallbladder is been removed. There is an 8.1 mm partially calcified splenic artery aneurysm. Visualized portions of the upper abdo men are otherwise unremarkable. There is hypertrophic spondylosis within the spine. IMPRESSION: 1. THIS EXAMINATION IS NEGATIVE FOR BOTH PULMONARY EMBOLUS AND AORTIC DISSECTION. 2. CARDIOMEGALY. 3. 8.1 MM CALCIFIED SPLENIC ARTERY ANEURYSM. 4. DEGENERATIVE CHANGES WITHIN THE SPINE.
[2017-08-03 11:49] VITALS: RESP 18
[2017-08-03] MEDS ORDERED: MULTIVIT MIN PO SCH (12:00)
[2017-08-03] MEDS ORDERED: MULTIVITAMINS, THERA 1 EACH TAB PO SCH (12:00)
[2017-08-03] MEDS ORDERED: [UNRECOGNIZED DRUG - OTHER] PO SCH (12:00)
[2017-08-03] MEDS ORDERED: FOLIC PO SCH (12:00)
[2017-08-03] MEDS ORDERED: IRON PO SCH (12:00)
--- NOTE | 2017-08-03 12:02 | CONS ---
CONSULTATION This is a 67-year-old female who I see quite frequently in the office. Her primary doctor is Dr. Kacey Pelayo. She has a history of severe chronic bronchial asthma with multiple exacerbations, previous pulmonary embolism, heart failure, chronic low back pain, tracheobronchomalacia and bronchiectasis. She apparently presented to the emergency department with 2 pains. One was a pain in the back that was sharp, worse with deep breathing and the pain was sort of in the mid chest area. She thought it might relate to esophageal spasm. Anyway, she states that her panicked and brought her into the emergency room. She was admitted. She apparently has been cleared for discharge by Cardiology. Her asthma is at her baseline. She does start with a vest on Saturday for her bronchiectasis and retained secretions. Other than that, she is doing about the same. She did have a recent bronchoscopy at the beginning of this month. She has frequent bronchoscopies because of her tracheobronchomalacia and bronchiectasis. Again, she is not having any pain currently. She apparently had a chest x-ray that was okay and a CT angiogram that was negative for PE and dissecting thoracic aneurysm. MEDICATIONS: Reviewed. They include Flovent, Lasix, Klor-Con, Serevent, albuterol inhaler, updrafts, nystatin, omega-3 fatty acids, calcium with vitamin D3, levothyroxine, Xarelto, Zyrtec, Nexium, multivitamins, Zithromax Saturday, Saturday, Saturday, vitamins, Colace, Cortef, coenzyme Q, multivitamins, metoprolol, Crestor, baclofen, Ambien, and Vistaril. ALLERGIES: Include CEFTIN, AVELOX, PENICILLINS, VIOXX, and BLACKBERRIES. MEDICAL HISTORY: Includes adrenal insufficiency, irritable bowel syndrome, migraines, heart palpitations, hiatal hernia, colonization with Pseudomonas, tracheobronchomalacia/bronchiectasis, lumbar disc disease and stenosis, lumbar radiculopathy, osteopenia, macular degeneration, multiple bilateral pulmonary emboli, MTHFR gene mutation, chronic bronchial asthma, hypothyroidism, diverticular disease, and multiple other medical problems. SURGICAL HISTORY: Includes among other things, , cholecystectomy, heart catheterization, orthopedic procedures, colonoscopy, bronchial thermoplasty, bilateral cataract surgery, surgery for deviated nasal septum and multiple bronchoscopies with BAL's. SOCIAL HISTORY: Positive for previous tobacco use. Denies any alcohol or illicit drug use. FAMILY HISTORY: Positive for DVT and COPD. The rest of the history is not too remarkable. REVIEW OF SYSTEMS: CONSTITUTIONAL: Negative. NEUROLOGIC: Negative. HEENT: Negative. CARDIOVASCULAR: Negative. PULMONARY: Chronic shortness of breath. Chest tightness, wheezing, cough, and phlegm production. GI, : Negative. RHEUMATOLOGIC: Negative. IMMUNOLOGIC: negative. ENDOCRINOLOGIC: Negative. DERMATOLOGIC: Negative. Current vital signs include a temperature which is normal at 98, heart rate 65, respiratory rate 16, blood pressure 120/61, mean 83, 2 L saturation 97%. Appears in no acute distress. HEENT examination is grossly unremarkable. Mucous membranes are moist. Neck is supple. Full range of motion. No adenopathy. Cardiovascular examination reveals regular rhythm and rate. S1, S2 normal. Lungs reveal coarse inspiratory and expiratory rhonchi. Breath sounds are diminished. There is prolongation. Breath sounds are at baseline. Abdomen is soft but obese. Bowel sounds are heard. Extremities are intact. No cyanosis, clubbing, or edema. Skin without rash. Neurologic examination is brief but nonfocal. LABS: Reviewed. White count 10.9, hemoglobin, hematocrit and platelet count all normal. Sodium, potassium normal, chloride is 108, CO2 is 26, BUN and creatinine were 21 and 0.67. Cardiac panel is negative. Troponin's were less than 0.012 x2. Lipase was 110. Chest x-ray shows some small lung volumes, mild cardiomegaly and some increased interstitial markings consistent with her chronic lung disease. CT angiogram was negative for PE and aortic dissection. There was some evidence of cardiomegaly. Medications are reviewed. ASSESSMENT: 1. Chest and back pain, of unclear etiology. Could relate to pleurisy and/or esophageal spasm, thought to be noncardiac in nature by the delineator. 2. Severe chronic bronchial asthma. 3. Bronchiectasis. 4. Tracheobronchomalacia. 5. History of pulmonary embolism. 6. MTHFR gene mutation. 7. Hiatal hernia/gastroesophageal reflux disease. 8. Adrenal insufficiency. 9. Irritable bowel syndrome. 10.Migraine cephalgia. 11.Pseudomonas colonization. 12.Lumbar disc disease. 13.Hypothyroidism. PLAN: From our perspective, the patient could be discharged home. She has a followup with me already rescheduled. She will start her Vest therapy for her bronchiectasis and retained secretions on Saturday. No additional recommendations are made. Prognosis is good. MMODL / IJN: [id number] /
[2017-08-03] MEDS: VIT A,C & E-LUTEIN-MINERALS 1 EACH TAB PO SCH (12:57)
[2017-08-03] MEDS: NIACIN TR 500 MG CAPSULE.ER PO SCH ×2 (12:58→13:01)
--- NOTE | 2017-08-03 15:32 | CONS ---
CONSULTATION This is a 67-year-old lady with a known history of prior pulmonary embolism, no significant CAD, hypertension, hyperlipidemia, and also has some pulmonary issues and sees Dr. Snider in the outpatient setting. She came into the hospital because of some upper back discomfort and there was some radiation of the same back pain towards the front. She felt anxious, concerned, came in. Her troponin levels are normal. She is resting comfortably. Breathing easier, but still has some midscapular discomfort. Blood pressure has generally been well controlled. At the time of my evaluation , she is resting comfortably without symptoms. PAST MEDICAL HISTORY: Past medical history remarkable for some adrenal insufficiency, irritable bowel syndrome. Hiatal hernia, palpitations, tracheobronchomalacia, bronchiectasis, lumbar disc disease, history of multiple pulmonary embolisms in the past and chronic bronchial asthma. She is status post cholecystectomy, a , cardiac cath, which revealed no significant CAD and bilateral cataract surgery. REVIEW OF SYMPTOMS: Review of systems is remarkable for shortness of breath chronically. No hematemesis, melena, genitourinary symptoms, fever, chills or cough with expectoration. PHYSICAL EXAMINATION: On examination, blood pressure is 128/70, pulse rate is a 70 per minute. HEENT: Unremarkable. Fundus was not examined by me. Neck is supple. No JVD. I do not hear a carotid bruit. Heart exam is S1, S2 heard normally. Lungs reveal bilateral expiratory rhonchi abdomen is soft, nontender. Lower extremities reveal diminished pulses. No edema. Central nervous system grossly within normal limits. EKG revealed sinus mechanism, no acute changes. Chest x-ray showed some lung volumes being smaller, mild cardiomegaly. Given her presentation and midscapular pain, I advised a CT angiography to rule out any pulmonary embolism or aortic pathology and both of these were negative on the study. Her back upper back discomfort does not seem to be cardiac in etiology. Her troponin levels are normal. IMPRESSION: 1. Atypical chest pain. 2. History of midscapular pain. Aortic dissection and pulmonary embolism ruled out. 3. History of bronchiectasis. 4. History of tracheobronchomalacia. 5. History of prior pulmonary embolism. RECOMMENDATIONS: I am recommending that once the CT scan results which are formally available and she has been evaluated by pulmonology, she can be discharged and she can follow up with Dr. Fang who is her focusing machine operator in the office, to consider Out Pt Stress testing. No aggressive intervention is necessary at this time. Continue Xarelto. She already gets a Vest therapy for her bronchiectasis and that should be continued. Thank you very much for the consult. PIETRO / ROSANGELA: [id number] / MTDD
[2017-08-03 15:50] VITALS: BP 121/66; PULSE 63; TEMP 98.3
[2017-08-03] MEDS ORDERED: INFLUENZA VACCINE (6 MOS+) 60 MCG/0.5 ML SYRINGE IM ONE (15:54)
--- NOTE | 2017-08-03 16:19 | P.DS ---
Providers Date of admission: 08/02/17 19:43 Attending physician: Brittany Good Consults: 08/02/17 19:39 Consult Physician Urgent Consulting Provider: Del Fang Consult Reason/Comments: Chest Pain Do you want consulting provider notified?: Yes, Notify in am 08/03/17 10:44 Consult Physician Routine Consulting Provider: Alvin Snider Consult Reason/Comments: known to patient Do you want consulting provider notified?: Yes Primary care physician: Kacey Pelayo [facility] Course: was admitted for chest pain rule out acute coronary syndromes, patient is found to have musculoskeletal chest pain was a valid by cardiology was a valid by pulmonology as well who opted CAT scan of the chest rule out any pulmonary embolism and the IV infiltrated in the left hand because of which she has some swelling for which she is putting ice and they're otherwise patient has normal physical exam patient has musculoskeletal chest pain is cleared for discharge from cardiology and pulmonology perspective and patient is otherwise clinically doing well. Patient will be discharged today without any changes in medications and the please refer to H&P from Dr. Good for further details of management and hospitalization course. Patient Condition at Discharge: Stable Plan - Discharge Summary Discharge Rx Participant: Yes New Discharge Prescriptions: Continue Fluticasone Propionate [Flovent Hfa 220MCG] 2 puff INHALATION RT-BID Salmeterol Xinafoate [Serevent Diskus] 1 puff INHALATION RT-BID Furosemide [Lasix] 20 mg PO DAILY PRN PRN Reason: Edema Potassium Chloride [Klor-Con 10] 10 meq PO DAILY PRN PRN Reason: Taken with Lasix Albuterol Inhaler [Ventolin Hfa Inhaler] 2 puff INHALATION RT-Q6H PRN PRN Reason: Shortness Of Breath [place]-3 Fatty Acids [[place]-3] 1,000 mg PO DAILY #0 Niacin 500 mg PO DAILY@1200 Calcium Carbonate/Vitamin D3 [Calcium 600-Vit D3 400 Tablet] 2 tab PO PC- SUPPER Levothyroxine Sodium [Synthroid] 112 mcg PO QAM Rivaroxaban [Xarelto] 20 mg PO QAM Cetirizine HCl [Zyrtec] 10 mg PO DAILY PRN PRN Reason: Allergy Symptoms Esomeprazole Magnesium [NexIUM] 40 mg PO QAM Multivitamin [Multivitamins Adult Gummies] 2 tab PO DAILY Azithromycin [Zithromax] 250 mg PO MOWEFR Vit C/E/Zn/Coppr/Lutein/Zeaxan [Preservision Areds 2 Softgel] 1 cap PO BID Docusate [Colace] 100 mg PO DAILY PRN PRN Reason: Constipation Hydrocortisone [Cortef] 5 mg PO DAILY@1500 Hydrocortisone [Cortef] 15 mg PO QAM Ubidecarenone [Co Q-10] 200 mg PO HS Multivit-Min/Iron/Folic/Imu871 [Hair, Skin and Nails Tablet] 2 tab PO DAILY@ 1200 Rosuvastatin [Crestor] 5 mg PO HS Metoprolol Tartrate 25 mg PO DAILY Gabapentin [Neurontin] 400 mg PO BID #60 oxyCODONE-APAP 7.5-325MG [Percocet 7.5-325 mg] 1 tab PO BID PRN #60 tab PRN Reason: Pain Baclofen 5 mg PO TID PRN PRN Reason: Muscle Spasm hydrOXYzine PAMOATE [Vistaril] 50 mg PO DAILY PRN PRN Reason: Migraine Headache Ipratropium-Albuterol Nebulize [Duoneb 0.5 mg-3 mg/3 ml Soln] 3 ml INHALATION RT-QID PRN PRN Reason: sob Zolpidem [Ambien] 2.5 mg PO HS PRN PRN Reason: sleep Discharge Medication List Fluticasone Propionate [Flovent Hfa 220MCG] 2 puff INHALATION RT-BID 10/19/14 [ History] Furosemide [Lasix] 20 mg PO DAILY PRN 10/19/14 [History] Potassium Chloride [Klor-Con 10] 10 meq PO DAILY PRN 10/19/14 [History] Salmeterol Xinafoate [Serevent Diskus] 1 puff INHALATION RT-BID 10/19/14 [ History] Albuterol Inhaler [Ventolin Hfa Inhaler] 2 puff INHALATION RT-Q6H PRN 11/05/14 [ History] Niacin 500 mg PO DAILY@1200 03/08/15 [History] [place]-3 Fatty Acids [[place]-3] 1,000 mg PO DAILY #0 03/08/15 [History] Calcium Carbonate/Vitamin D3 [Calcium 600-Vit D3 400 Tablet] 2 tab PO PC-SUPPER 06/25/15 [History] Levothyroxine Sodium [Synthroid] 112 mcg PO QAM 09/15/15 [History] Rivaroxaban [Xarelto] 20 mg PO QAM 11/15/15 [History] Cetirizine HCl [Zyrtec] 10 mg PO DAILY PRN 01/27/16 [History] Esomeprazole Magnesium [NexIUM] 40 mg PO QAM 04/05/16 [History] Multivitamin [Multivitamins Adult Gummies] 2 tab PO DAILY 05/07/16 [History] Azithromycin [Zithromax] 250 mg PO MOWEFR 08/08/16 [History] Vit C/E/Zn/Coppr/Lutein/Zeaxan [Preservision Areds 2 Softgel] 1 cap PO BID 01/09 [History] Docusate [Colace] 100 mg PO DAILY PRN 02/24/17 [History] Hydrocortisone [Cortef] 5 mg PO DAILY@1500 02/24/17 [History] Hydrocortisone [Cortef] 15 mg PO QAM 02/24/17 [History] Ubidecarenone [Co Q-10] 200 mg PO HS 02/24/17 [History] Multivit-Min/Iron/Folic/Pus716 [Hair, Skin and Nails Tablet] 2 tab PO DAILY@ 1200 03/31/17 [History] Gabapentin [Neurontin] 400 mg PO BID #60 07/02/17 [Rx] Metoprolol Tartrate 25 mg PO DAILY 07/02/17 [History] Rosuvastatin [Crestor] 5 mg PO HS 07/02/17 [History] oxyCODONE-APAP 7.5-325MG [Percocet 7.5-325 mg] 1 tab PO BID PRN #60 tab [Rx] Baclofen 5 mg PO TID PRN 08/02/17 [History] Ipratropium-Albuterol Nebulize [Duoneb 0.5 mg-3 mg/3 ml Soln] 3 ml INHALATION RT -QID PRN 08/02/17 [History] Zolpidem [Ambien] 2.5 mg PO HS PRN 08/02/17 [History] hydrOXYzine PAMOATE [Vistaril] 50 mg PO DAILY PRN 08/02/17 [History] Follow up Appointment(s)/Referral(s): Kacey Pelayo MD [Primary Care Provider] - 3 Days Alvin Snider DO [Doctor of Osteopathic Medicine] - As Needed (Keep appt already scheduled.) Del Fang MD [STAFF PHYSICIAN] - 2 Weeks Discharge Disposition: HOME SELF-CARE
[2017-08-03] MEDS ORDERED: CALCIUM CARB-VIT D 500MG-200UN 1 EACH TAB PO SCH (18:30)
[2017-08-03] MEDS ORDERED: NON-FORMULARY DRUG (Ubidecarenone [Co Q-10] 200 MG) PO SCH (21:00)
[2017-08-03] MEDS ORDERED: ATORVASTATIN 10 MG TAB PO SCH (21:00)
[2017-08-05] MEDS ORDERED: AZITHROMYCIN 250 MG TAB PO SCH (09:00)
== END 2017-08-03 16:57 | disposition home or self-care (01) ==
LOC: EC 17:57 → 3OBS 19:43
PROVIDERS: ADMIT Hospitalist; ATTEND Hospitalist
DX: R07.89 Other chest pain (principal); Z23 Encounter for immunization; I50.9 Heart failure, unspecified; I11.0 Hypertensive heart disease with heart failure; G89.29 Other chronic pain; K58.9 Irritable bowel syndrome, unspecified; K44.9 Diaphragmatic hernia without obstruction or gangrene; G43.909 Migraine, unspecified, not intractable, without status migrainosus; E03.9 Hypothyroidism, unspecified; H35.30 Unspecified macular degeneration; M19.90 Unspecified osteoarthritis, unspecified site; J44.9 Chronic obstructive pulmonary disease, unspecified; E78.5 Hyperlipidemia, unspecified; E27.40 Unspecified adrenocortical insufficiency; J40 Bronchitis, not specified as acute or chronic; M51.9 Unspecified thoracic, thoracolumbar and lumbosacral intervertebral disc disorder; Z86.718 Personal history of other venous thrombosis and embolism; Z79.01 Long term (current) use of anticoagulants; Z87.01 Personal history of pneumonia (recurrent); E72.12 Methylenetetrahydrofolate reductase deficiency; Z86.711 Personal history of pulmonary embolism; Z79.51 Long term (current) use of inhaled steroids; Z79.899 Other long term (current) drug therapy; Z88.6 Allergy status to analgesic agent; Z88.1 Allergy status to other antibiotic agents; Z88.0 Allergy status to penicillin; Z88.8 Allergy status to other drugs, medicaments and biological substances; Z91.018 Allergy to other foods; Z87.891 Personal history of nicotine dependence; Z82.49 Family history of ischemic heart disease and other diseases of the circulatory system; Z22.39 Carrier of other specified bacterial diseases
CPT/HCPCS: 93005 ×2; 96366 ×2; 96376; 96365; 99285; 36415; 94640 ×2; 94760; 80061; 80053; 82550; 82553 ×2; 83690; 84484 ×2; 85025; 85610; 85730; 72070; 71020; 71275; 90686; G0378 ×2; G0008; J1644 ×2; Q9967

== ENCOUNTER → 2017-08-27 | Outpatient (CLI) | payer MEDICARE, BC ==
[2017-08-27 12:37] VITALS: BP 141/96; PULSE 91; RESP 16
--- NOTE | 2017-08-27 12:56 | P.PN ---
Progress Note - Text Progress Note Date: 08/27/17 Patient returns for followup for chronic back pain with radiation to hips and left lower extremity, occasionally past knee. Patient is still taking Percocet , baclofen and Neurontin more regularly but reduced dose of baclofen has improved the jitteriness she has experienced substantially. She is still complaining of sedation with these medications and for this reason is only taking Percocet once per day. She does not recall specifically but believes she may have been less sedated with [place]. Today, pt denies new-onset weakness , bowel/bladder incontinence, or any other signs or symptoms of cauda equina syndrome. There are no signs of acute intoxication, and no indications of medication diversion or overuse. In addition to above, 13-point review of systems is also negative for chest pain , shortness of breath, changes in vision, changes in hearing, new onset weakness , abdominal pain, diarrhea, extreme fatigue, malaise, fever, skin changes, homicidal or suicidal ideation, or bowel or bladder incontinence. Vital Signs: Reviewed in EMR Gen: WDWN, AAOx3, NAD, walks with cane HEENT: NCAT, EOMI, hearing grossly normal Pulm: resp unlabored Abd: soft, NT, ND Neck: supple, trachea midline ROM in flexion lumbar spine: reduced ROM in extension lumbar spine: reduced Lumbar paravertebral tenderness: ++ Facet loading: + SI joint tenderness: + L > + R Anuel's test: ++ L > + R Lower extremity: strength intact Neuro: CN II-XII grossly intact, muscle strength lower extremities PRESERVED Imaging: Reviewed in EMR Assessment: 1. sacroiliitis 2. lumbar DDD 3. chronic pain syndrome Plan: 1. Explanation: Opioid and psychological risk scores were reviewed. Diagnoses , prognoses, and multiple treatment options including but not limited to physical therapy, interventional therapies, adjuvant medical therapies, narcotic medication therapies, and surgery were discussed with the patient and all questions were answered to the patient's satisfaction. 2. Opioid agreement: Patient has previously signed narcotic agreement, and was orally counseled to not overuse, abuse, divert, or cell medications, and to take them as prescribed by only 1 healthcare provider. The patient was also counseled to store opioid medications in a safe and preferably locked location. Patient was also counseled against driving while using narcotic medications and also to not use alcohol or any illicit or recreational drugs. The patient verbalized understanding that lack of compliance with any of the above and likely result in failure to renew narcotic prescriptions, possible discharge from the clinic, and possible legal ramifications thereafter if indicated. 3. Counseling: The patient was counseled extensively on BODY MASS INDEX, EXERCISE. Specifically, the patient was instructed regarding the importance of weight loss and exercise in the context of both chronic pain and overall health. 4. Procedures: repeat left SI RFA in November 2017 5. Consultations: None 6. Investigations: UDS today 7. Medications: Change Percocet 7.5/325 BID #60 to [place] 10/325 #60 with no refill + gabapentin 400 mg #60 two refills, continue baclofen 5 mg BID with two refills 8. Disposition: f/u for procedure in 8 weeks PQRS measures: 1-Patient's medications are documented in the chart. 2-Tobacco use is negative 3-Patient has had a pneumococcal vaccine. 4-Advanced care planning discussed, patient unable to give. 5-Opioid contract signed with the patient. 6-Pain positive, follow-up visit or procedure scheduled 7-Patient's blood pressure measured and documented, and patient will follow up with the primary care due to hypertension. 8-Patient's weight was measured, and body mass index ABOVE the normal limits, and counseling was done. Patient instructed to follow up with PCP. 9-Patient WAS NOT identified as an unhealthy alcohol user.
== END | disposition home or self-care (01) ==
LOC: PNWHC3 12:15
PROVIDERS: ATTEND Anesthesiology
DX: M51.36 Other intervertebral disc degeneration, lumbar region (principal); M46.1 Sacroiliitis, not elsewhere classified; G89.4 Chronic pain syndrome
CPT/HCPCS: 80356; 99211

== ENCOUNTER → 2017-10-22 | Outpatient (CLI) | payer MEDICARE, BC ==
[2017-10-22 12:36] VITALS: BP 123/77; PULSE 88; RESP 18
--- NOTE | 2017-10-22 13:04 | P.PN ---
Progress Note - Text Progress Note Date: 10/22/17 Patient returns for followup for chronic back pain with radiation to hips and left lower extremity, occasionally past knee. Patient is still taking Percocet , baclofen and Neurontin more regularly but reduced dose of baclofen has improved the jitteriness she has experienced substantially. She prefers Percocet over [place] due to increased pain relief even though she is somewhat more sedated with it. Today, pt denies new-onset weakness, bowel/bladder incontinence, or any other signs or symptoms of cauda equina syndrome. There are no signs of acute intoxication, and no indications of medication diversion or overuse. In addition to above, 13-point review of systems is also negative for chest pain , shortness of breath, changes in vision, changes in hearing, new onset weakness , abdominal pain, diarrhea, extreme fatigue, malaise, fever, skin changes, homicidal or suicidal ideation, or bowel or bladder incontinence. Vital Signs: Reviewed in EMR Gen: WDWN, AAOx3, NAD, walks with cane HEENT: NCAT, EOMI, hearing grossly normal Pulm: resp unlabored Abd: soft, NT, ND Neck: supple, trachea midline ROM in flexion lumbar spine: reduced ROM in extension lumbar spine: reduced Lumbar paravertebral tenderness: ++ Facet loading: + SI joint tenderness: + L > + R Anuel's test: ++ L > + R Lower extremity: strength intact Neuro: CN II-XII grossly intact, muscle strength lower extremities PRESERVED Imaging: Reviewed in EMR Assessment: 1. sacroiliitis 2. lumbar DDD 3. chronic pain syndrome Plan: 1. Explanation: Opioid and psychological risk scores were reviewed. Diagnoses , prognoses, and multiple treatment options including but not limited to physical therapy, interventional therapies, adjuvant medical therapies, narcotic medication therapies, and surgery were discussed with the patient and all questions were answered to the patient's satisfaction. 2. Opioid agreement: Patient has previously signed narcotic agreement, and was orally counseled to not overuse, abuse, divert, or cell medications, and to take them as prescribed by only 1 healthcare provider. The patient was also counseled to store opioid medications in a safe and preferably locked location. Patient was also counseled against driving while using narcotic medications and also to not use alcohol or any illicit or recreational drugs. The patient verbalized understanding that lack of compliance with any of the above and likely result in failure to renew narcotic prescriptions, possible discharge from the clinic, and possible legal ramifications thereafter if indicated. 3. Counseling: The patient was counseled extensively on BODY MASS INDEX, EXERCISE. Specifically, the patient was instructed regarding the importance of weight loss and exercise in the context of both chronic pain and overall health. 4. Procedures: left vs. right lumbar RFA L3-S1 5. Consultations: None 6. Investigations: UDS OK 7. Medications: Change [place] to Percocet 7.5/325 BID #60 with one refill + gabapentin 400 mg #60 two refills, continue baclofen 5 mg BID with two refills 8. Disposition: f/u for procedure as scheduled PQRS measures: 1-Patient's medications are documented in the chart. 2-Tobacco use is negative 3-Patient has had a pneumococcal vaccine. 4-Advanced care planning discussed, patient unable to give. 5-Opioid contract signed with the patient. 6-Pain positive, follow-up visit or procedure scheduled 7-Patient's blood pressure measured and documented, and patient will follow up with the primary care due to hypertension. 8-Patient's weight was measured, and body mass index ABOVE the normal limits, and counseling was done. Patient instructed to follow up with PCP. 9-Patient WAS NOT identified as an unhealthy alcohol user.
== END | disposition home or self-care (01) ==
LOC: PNWHC3 12:02
PROVIDERS: ATTEND Anesthesiology
DX: G89.29 Other chronic pain (principal); M54.9 Dorsalgia, unspecified; M51.36 Other intervertebral disc degeneration, lumbar region; M46.1 Sacroiliitis, not elsewhere classified
CPT/HCPCS: 99211

== ENCOUNTER 2017-12-17 10:25 | Day surgery (SDC) | payer MEDICARE, BC ==
[2017-12-13 11:04] VITALS: BMI 44.9
[~2017-12-17 10:25] MED LIST changes: +ALBUTEROL NEB (CONC) 2.5 MG/0.5 ML INHALATION ONE; +ATROPINE SULFATE 0.4 MG/ML 1 ML VIAL IM ONE; -BUPIVACAINE (PF) 0.5% 30 ML VIAL ONE; -IV FLUID CONTINUATION 1,000 ML IV ONE; +LACTATED RINGERS 1,000 ML IV ONE; -LACTATED RINGERS 1,000 ML IV SCH; -LIDOCAINE 1% 20 ML VIAL (10MG/ML) FOR IV START INTRADERMA ONE; +LIDOCAINE 1% 20 ML VIAL (10MG/ML) FOR IV START INTRADERMA PRN; +LIDOCAINE 2% (PF) 20 MG/ML 2 ML AMP INHALATION ONE; -MIDAZOLAM 2 MG/2 ML VIAL ONE; -TRIAMCINOLONE ACETONIDE 40 MG/ML 1 ML VIAL ONE; -fentaNYL (PF) 50 MCG/ML 2 ML AMP ONE
[2017-12-17 10:59] VITALS: RESP 16; TEMP 98.4
[2017-12-17] MEDS: LACTATED RINGERS 1,000 ML IV SCH ×2 (10:59→11:56)
[2017-12-17] MEDS ORDERED: ONDANSETRON 4 MG/2 ML VIAL IVP ONE (11:06)
[2017-12-17] MEDS ORDERED: fentaNYL (PF) 50 MCG/ML 2 ML AMP ONE (11:57)
[2017-12-17] MEDS ORDERED: PROPOFOL 10 MG/ML 20 ML VIAL IV ONE (11:57)
[2017-12-17] MEDS ORDERED: LIDOCAINE 1% INJ 10MG/ML (20 ML MDV) ONE (11:57)
[2017-12-17] MEDS ORDERED: LIDOCAINE 2% INJ 20 MG/ML INTRATRACH ONE ×2 (12:06→12:24)
[2017-12-17 13:04] VITALS: BP 106/65; PULSE 88
--- NOTE | 2017-12-17 13:04 | PCN ---
PROCEDURE NOTE Procedure is a bronchoscopy, airway examination, therapeutic lavage, BAL. PREOPERATIVE DIAGNOSIS: Retained secretions and severe asthma. POSTOPERATIVE DIAGNOSIS: Retained secretions and severe asthma. SYRUP FILTERER provided unconscious sedation and general anesthesia. PROCEDURE: The patient's procedure took place in room #2. Again, there was informed consent and universal timeout. After the patient was adequately sedated and being fully monitored, the bronchoscope was inserted through the right nostril. It passed through the right nasopharynx into the oropharynx. There was thick secretions noted in the oropharynx and hypopharynx. There was suctioned. Next, the glottic and periglottic structures were observed. The anterior commissure, true cords, false cords arytenoids, piriform sinuses, right and left vallecula and epiglottis all appeared relatively normal. There were some secretions noted in the hypoglossal area. The bronchoscope then was positioned above the glottic opening and the glottic structures were topicalized with lidocaine. After topicalization, bronchoscope was pushed through the glottic opening into the trachea. Trachea appeared relatively normal other than the fact that there was a significant collapsibility. 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 There were secretions noted in the distal trachea. They were purulent looking. Tracheal luz elena was sharp. Right and left mainstem were topicalized. The right upper lobe and its 3 segments right middle lobe and its 2 segments right lower lobe and its 5 segments, left upper lobe proper and its 2 segments, the lingula and its 2 segments and the left lower lobe and its 4 segments all have similar findings of diffuse bronchomalacia. The airways were very collapsible. The airways were erythematous and hyperemic. There were thick secretions noted throughout. They were purulent. There was no dominant mass or tumor. The saline was used to suction and clean out the airways. Next, the bronchoscope was wedged into the right middle lobe. The BAL took place. Patient tolerated procedure well. Afterwards, the bronchoscope was withdrawn. The patient will be recovered. The specimens were sent to the laboratory for analysis. There was no immediate complications. There was no bleeding. MMODL / IJN: [id number] /
== END 2017-12-17 13:25 | disposition home or self-care (01) ==
LOC: ORWHC2ENDO 10:25
PROVIDERS: ATTEND Internal Medicine Critical Care Medicine
DX: J45.909 Unspecified asthma, uncomplicated (principal); J39.8 Other specified diseases of upper respiratory tract; J98.09 Other diseases of bronchus, not elsewhere classified; Z82.5 Family history of asthma and other chronic lower respiratory diseases; E03.9 Hypothyroidism, unspecified; E27.40 Unspecified adrenocortical insufficiency; R00.2 Palpitations; Z86.711 Personal history of pulmonary embolism; K21.9 Gastro-esophageal reflux disease without esophagitis; M81.0 Age-related osteoporosis without current pathological fracture; Z80.0 Family history of malignant neoplasm of digestive organs; Z79.01 Long term (current) use of anticoagulants; Z79.51 Long term (current) use of inhaled steroids; Z79.52 Long term (current) use of systemic steroids; Z79.899 Other long term (current) drug therapy; Z88.6 Allergy status to analgesic agent; Z88.1 Allergy status to other antibiotic agents; Z88.0 Allergy status to penicillin; Z88.8 Allergy status to other drugs, medicaments and biological substances
CPT/HCPCS: 94640; 87798 ×3; 87496; 87498; 87529; 88108; 88305; 87252; 87502; 87634; 87070; 87205; 87116; 87102; 87206; 31624; J2001 ×3; J0461; J2405; J3010; J2704

== ENCOUNTER 2018-01-21 07:55 | Day surgery (SDC) | payer MEDICARE, BC ==
[2018-01-17 10:46] VITALS: BMI 44.9
[2018-01-21] MEDS ORDERED: LACTATED RINGERS 1,000 ML IV ONE (08:30)
[2018-01-21] MEDS ORDERED: LIDOCAINE 1% 20 ML VIAL (10MG/ML) FOR IV START INTRADERMA ONE (08:30)
[2018-01-21 08:38] VITALS: RESP 16; TEMP 98.6
--- NOTE | 2018-01-21 09:53 | FL ---
EXAMINATION TYPE: FL guided pain mgmt statistic DATE OF EXAM: 01/21/2018 CLINICAL HISTORY: Low back pain. TECHNIQUE: Fluoroscopy. COMPARISON: None. FINDINGS: Fluoroscopic guidance was provided during pain relief procedure performed by Dr. Rock . A total of 15 seconds of fluoroscopic time was utilized during the procedure and 3 spot images are ac quired. Images acquired shows needle localization at several levels off of the midline in the lower lumbar spine. IMPRESSION: As Above.
[2018-01-21] MEDS ORDERED: LACTATED RINGERS 1,000 ML IV SCH (10:00)
[2018-01-21 10:03] VITALS: PULSE 66
[2018-01-21 10:07] VITALS: BP 117/75
[2018-01-21] MEDS ORDERED: IV FLUID CONTINUATION 1,000 ML IV ONE (10:12)
--- NOTE | 2018-01-21 10:53 | P.PCN ---
Date of Procedure: 01/21/18 Surgeon: Sheldon Rock Pathology: none sent Condition: stable Disposition: PACU Description of Procedure: PREOPERATIVE DIAGNOSIS: Lumbar spondylosis without myelopathy and facet arthropathy POSTOPERATIVE DIAGNOSIS: Lumbar spondylosis without myelopathy and facet arthropathy PROCEDURES: Left Radiofrequency thermocoagulation, L3-L4, L4-L5, and L5-S1 medial branch, with fluoroscopic guidance. ANESTHESIA: 1% lidocaine plain; Conscious sedation with versed/fentanyl EBL: Minimal PROCEDURE INDICATION: The patient with low back pain secondary to lumbar arthropathy who had more than 50% relief of pain with previous diagnostic lumbar medial branch block with bupivacaine. Patient presents for RFA today; no use of blood thinners. PROCEDURE DESCRIPTION / TECHNIQUE: The patient was seen and identified in the preoperative area. Risks, benefits, complications, and alternatives were discussed with the patient (including but not limited to incomplete pain relief , bleeding, infection, nerve damage, and allergies to medications), the patient agreed to proceed with the procedure and signed the consent after all questions were answered. Patient was taken to the OR and time out was completed to verify proper patient , position, laterality of pain, and allergies. Pt was placed in the prone position. IV was started. Vital signs remained stable throughout the procedure. A pillow was placed under the patients chest to decrease lordosis. The lumbosacral area was prepped and draped in the usual sterile fashion. Vital signs were closely monitored during the procedure. Conscious sedation was used during the procedure to decrease patients anxiety. Using AP and then oblique fluoroscopy, the eye of the Dick dog corresponding to the connection between the superior and transverse articular processes of left L3, L4, L5 and top of the sacrum were identified, marked, and localized with 1% lidocaine. Subsequently, a 18 gauge, 100-mm radiofrequency cannula with a 10-mm active tip was advanced guided by fluoroscopy to each of the eyes of the Dick dog at the levels of all four medial branches. Each site then underwent sensory testing at 50 Hz and 0 to 1 volt and motor testing at 2 Hz and 0 to 3 volt with local stimulation, but no radicular symptoms down the legs. Thereafter all four medial branch sites underwent radiofrequency thermocoagulation at 80 degrees Celsius for 90 seconds after injecting 0.5 ml of PF lidocaine 1%. After thermocoagulation, 1 ml of the block solution containing Kenalog 40 mg and 2 mL of preservative-free normal saline was injected at all four medial branch levels after negative aspiration of CSF and blood and with no paresthesias. Cannulas were retracted while injecting lidocaine 1% until the needles were removed. At the end of the procedure, the skin was cleansed and bandages were applied. COMPLICATIONS: No acute complications. DISPOSITION / PLANS: The patient was placed in a supine position and transferred to the recovery area in a stable condition for observation and was discharged from the recovery room after meeting discharge criteria. Home discharge instructions given to the patient by the staff. The patient was reexamined prior to discharge. The patient will schedule a right lumbar RFA next.
== END 2018-01-21 10:22 | disposition home or self-care (01) ==
LOC: ORPAIN 07:55
PROVIDERS: ATTEND Anesthesiology
DX: M47.816 Spondylosis without myelopathy or radiculopathy, lumbar region (principal); E66.9 Obesity, unspecified; Z68.41 Body mass index [BMI] 40.0-44.9, adult; Z95.5 Presence of coronary angioplasty implant and graft; J45.909 Unspecified asthma, uncomplicated; Z79.01 Long term (current) use of anticoagulants; Z88.6 Allergy status to analgesic agent; Z88.1 Allergy status to other antibiotic agents; Z88.0 Allergy status to penicillin; Z91.018 Allergy to other foods
CPT/HCPCS: 64635; 64636 ×2; J2250; J3301; J3010; 99152

== ENCOUNTER → 2018-01-31 | Outpatient (CLI) | payer MEDICARE, BC ==
--- NOTE | 2018-02-10 10:23 | EM ---
EVENT MONITOR DATE OF SERVICE: 01/31/2018 CLINICAL INFORMATION: The patient was monitored for 7 days through the event monitor. The baseline rhythm appeared to be a sinus mechanism. The patient did have multiple episodes of sinus tachycardia with a heart rate between 106 to 108 beats per minute. Beside that, during this 1 week monitoring, there were two episode of paroxysmal atrial tachycardia with a heart rate around 90 beats per minute. No evidence of sinus pause or sinus arrest seen. No evidence of any advanced AV block seen. The patient did report multiple episodes of symptoms including dizziness and lightheadedness as well as shortness of breath and irregular heartbeat and these episodes were associated with sinus rhythm as well as with PVCs. CONCLUSION: 1. This is a one week event monitor. 2. Sinus rhythm as a baseline mechanism. 3. The patient did have multiple episodes of paroxysmal atrial tachycardia noted. 4. No evidence of any advanced atrioventricular block. 5. No evidence of sinus pause or sinus arrest. 6. Multiple episodes of symptoms including irregular heartbeat as well as dizziness and lightheadedness and most of these symptoms were associated with normal sinus mechanism. MMODL / IJN: [id number] /
== END | disposition home or self-care (01) ==
LOC: RADECHMAIN 12:11
PROVIDERS: ATTEND Internal Medicine Critical Care Medicine
DX: I47.1 Supraventricular tachycardia (principal)
CPT/HCPCS: 93270; 93271

== ENCOUNTER 2018-02-13 07:20 | Day surgery (SDC) | payer MEDICARE, BC ==
[2018-02-11 13:37] VITALS: BMI 45.3
[~2018-02-13 07:20] MED LIST changes: -ALBUTEROL NEB (CONC) 2.5 MG/0.5 ML INHALATION ONE; -ATROPINE SULFATE 0.4 MG/ML 1 ML VIAL IM ONE; -LACTATED RINGERS 1,000 ML IV ONE; +LACTATED RINGERS 1,000 ML IV SCH; -LIDOCAINE 1% 20 ML VIAL (10MG/ML) FOR IV START INTRADERMA PRN; -LIDOCAINE 2% (PF) 20 MG/ML 2 ML AMP INHALATION ONE
[2018-02-13 08:23] VITALS: RESP 16; TEMP 98.3
[2018-02-13] MEDS ORDERED: LIDOCAINE 1% 20 ML VIAL (10MG/ML) FOR IV START INTRADERMA ONE (08:49)
--- NOTE | 2018-02-13 09:52 | P.PCN ---
Date of Procedure: 02/13/18 Procedure(s) Performed: PREOPERATIVE DIAGNOSIS: 1-Lumbar Spondylosis with Facet Arthropathy without myelopathy. POSTOPERATIVE DIAGNOSIS: 1- Lumbar Spondylosis with Facet Arthropathy without myelopathy. PROCEDURES : Right Radiofrequency thermocoagulation, L3-L4, L4-L5, and L5-S1 medial branch, with fluoroscopic guidance ANESTHESIA: Moderate sedation with intravenous versed 2 mg and fentaneyl 50 mcg and local infiltration with lidocaine 1% 6 ml EBL: Minimal PROCEDURE INDICATION: The patient with low back pain secondary to lumbar facet arthropathy who had more than 50% relief of her pain with previous diagnostic lumbar medial branch block with bupivacaine. PROCEDURE DESCRIPTION / TECHNIQUE: The patient was seen and identified in the preoperative area. Risks, benefits, complications, including but not limited to risk of infection ,bleeding , allergic reactions to the medications and no complete pain releife , and alternatives were discussed with the patient, the patient agreed to proceed with the procedure and signed the consent. IV was started. Vital signs remained stable throughout the procedure. Patient was taken to the OR and time out was completed. The patient was placed in the prone position on the procedure table. The lumber area was prepped and draped in the usual sterile fashion. . Vital signs were closely monitored during the procedure .IV sedation was used during the procedure to decrease patients anxiety. Using AP and then oblique fluoroscopy, the ``eye of the Dick dog corresponding to the connection between the superior and transverse articular processes of right L3, L4, and L5 were identified, marked, and localized with 1 % lidocaine. Subsequently, a [id number] radiofrequency cannula with a 10- mm active tip was advanced guided by fluoroscopy to each of the ``eyes of the Dick dog at right L3, L4, and L5. Each site then underwent sensory testing at 50 Hz and 0 to 1 volt and motor testing at 2.5 Hz and 0 to 3 volt with local stimulation, but no radicular symptoms down the legs. Thereafter the right L3-4, L4-5, and L5-S1 sites underwent radiofrequency thermocoagulation at 80 degrees celsius for 90 seconds after injecting 0.5 ml of PF lidocaine 1%. then After the thermocoagulation done , 1 ml of the block solution containing Kenalog 40 mg and 3 ml of marcain 0.5% was injected at the right L3-4 , L4-5 , and L5-S1, levels after negative aspiration of CSF and blood and with no paresthesias. Cannulas were retracted while injecting lidocaine 1% until the needle is out. At the end of the procedure, the skin was cleansed and bandages were applied. COMPLICATIONS: No acute complications. DISPOSITION / PLANS: The patient was placed in a supine position and transferred to the recovery area in a stable condition for observation and was discharged from the recovery room after meeting discharge criteria. Home discharge instructions given to the patient by the staff. The patient was reexamined prior to discharge. The patient will schedule a follow up in the clinic in 2-4 weeks.
[2018-02-13] MEDS ORDERED: IV FLUID CONTINUATION 1,000 ML IV ONE (10:12)
[2018-02-13] MEDS ORDERED: HYDROcodone/APAP 7.5-325MG 1 EACH TAB PO ONE (10:24)
--- NOTE | 2018-02-13 10:37 | FL ---
EXAMINATION TYPE: FL guided pain mgmt statistic DATE OF EXAM: 02/13/2018 CLINICAL HISTORY: Low back pain. TECHNIQUE: Fluoroscopy. COMPARISON: None. FINDINGS: Fluoroscopic guidance was provided during pain relief procedure performed by Dr. Rubin . A total of 5 seconds of fluoroscopic time was utilized during the procedure and two spot images ar e acquired. Images acquired shows needle localization with contrast injection at several levels in t he lower lumbar spine. IMPRESSION: As Above.
[2018-02-13 10:38] VITALS: BP 120/83; PULSE 77
[2018-02-17 10:00] LABS: Glucose,Whole Blood 94 mg/dL (75-99)
== END 2018-02-13 10:55 | disposition home or self-care (01) ==
LOC: ORPAIN 07:20
PROVIDERS: ATTEND Specialist
DX: M47.816 Spondylosis without myelopathy or radiculopathy, lumbar region (principal); Z88.0 Allergy status to penicillin; J44.9 Chronic obstructive pulmonary disease, unspecified; E27.40 Unspecified adrenocortical insufficiency; Z88.1 Allergy status to other antibiotic agents; Z88.8 Allergy status to other drugs, medicaments and biological substances
CPT/HCPCS: 64635; 64636 ×2; J2250; J3010; 99152

== ENCOUNTER → 2018-03-04 | Outpatient (CLI) | payer MEDICARE, BC ==
[2018-03-04 14:29] VITALS: BP 127/87; PULSE 86; RESP 20
--- NOTE | 2018-03-04 15:17 | P.PAINPG ---
Subjective Progress Note Date: 03/04/18 Principal diagnosis: Back pain, leg pain This is a 67-year-old woman with a long-standing history of low back pain as well as lumbar radicular pain. She is undergone previous diagnostic medial branch nerve blocks as well as radiofrequency ablations. They've been somewhat helpful for her. She does take a blood thinner. She complains that her pain is down her legs significantly. She is currently wheelchair bound. She does walk with a cane for short distances. She has not had any MRIs in 4 years. Objective - Vital Signs Vital signs: Vital Signs Temp Pulse 86 03/04/18 14:18 Resp 20 03/04/18 14:18 BP 127/87 03/04/18 14:18 Pulse Ox 97 03/04/18 14:18 Intake & Output 03/03/18 03/04/18 03/04/18 18:59 06:59 18:59 Weight 104.326 kg - Exam General: The patient is alert and oriented. Patient is not sedateded Patient is a question appropriately. She is morbidly obese. She is wheelchair bound. Cardiac: Heart is regular in rate and rhythm Respiratory: Clear to auscultation. No audible wheezes. Abdomen: Soft nontender nondistended. Lower extremities: Strength is normal bilaterally. Sensation is normal bilaterally. Reflexes are preserved and symmetric bilaterally. Straight leg raise is negative bilaterally. Assessment and Plan Assessment: Plan of Care 1. Medications: We'll refill the patient's medications today. I have reviewed the patient's MAPS report and it reveals expected results. Patient has signed an opiate agreement as well as opiate consent for treatment in our clinic. They understand the risks and benefits of opiate medications. They are aware of the potential for addiction. She did sign the [place] start talking form today. 2. Interventions: Patient may be a good candidate for lumbar epidural steroid injection. It is been greater than 4 years since she had an MRI of her lumbar spine. I will give her a prescription to have this repeated today. She also takes a blood thinner and would need a letter from her prescribing physician to approve withholding this. 3. Referrals: None 4. Testing: MRI lumbar spine 5. Psychological: She denies significant anxiety or depression. (1) Lumbar spinal stenosis Current Visit: Yes Status: Acute Code(s): M48.061 - SPINAL STENOSIS, LUMBAR REGION WITHOUT NEUROGENIC BHARAT SNOMED Code(s): 63533837 PQRS Measure Charge Sheet Measure #130: Documentation of Current Meds in Medical Chart: Patient's medications documented in chart Measure #226: Tobacco Use: Screen & Cessation Intervention: Pt not a tobacco user Measure #111: Pneumonia Vaccination: Pneumococcal vaccine administered or previously received Measure #47: Advance Care Plan: Advance care planning discussed & documented, plan or surrogate given Measure #412: Opioid Treatment Agreement: No documentation of signed opioid treatment agreement Measure #408: Opioid Therapy Follow-up Evaluation: Patient had f/u eval minimum every 3 months during opioid therapy Measure #317: Preventitive Care & Scrn High Bld Press & F/U: Pre-hypertensive or hypertensive BP documented, pt will f/u with PCP Measure #128: Body Mass Index (BMI) Screening & Follow-up: BMI documented ABOVE normal parameters - f/u documented Measure #131: Pain Assessment & Follow-up: Pain positive & plan documented Measure #431: Unhealthy Alcohol Use Preventative Care & Scrn: Patient not identified as an unhealthy alcohol user PQRS Narrative: Smoking Status Former smoker Do You Want the Pneumonia Vaccine Up to Date Vaccine AT THIS TIME? Narcotic Agreement Date Signed 04/05/16 Blood Pressure 127/87 Pain Intensity [Bilateral 8 Lower Back] Scale Used Numeric (1 - 10) Hx Alcohol Use (MH) No Home Medications: Ambulatory Orders Fluticasone Propionate [Flovent Hfa 220MCG] 2 puff INHALATION RT-BID 10/19/14 Furosemide [Lasix] 20 mg PO DAILY PRN 10/19/14 Salmeterol Xinafoate [Serevent Diskus] 1 puff INHALATION RT-BID 10/19/14 Albuterol Inhaler [Ventolin Hfa Inhaler] 2 puff INHALATION RT-Q6H PRN 11/05/14 [place]-3 Fatty Acids [[place]-3] 1,000 mg PO DAILY #0 03/08/15 Calcium Carbonate/Vitamin D3 [Calcium 600-Vit D3 400 Tablet] 2 tab PO PC-SUPPER 06/25/15 Levothyroxine Sodium [Synthroid] 112 mcg PO QAM 09/15/15 Cetirizine HCl [Zyrtec] 10 mg PO DAILY PRN 01/27/16 Esomeprazole Magnesium [NexIUM] 40 mg PO QAM 06/30/16 Multivitamin [Multivitamins Adult Gummies] 2 tab PO DAILY 05/07/16 Azithromycin [Zithromax] 250 mg PO MOWEFR 08/08/16 Vit C/E/Zn/Coppr/Lutein/Zeaxan [Preservision Areds 2 Softgel] 1 cap PO BID 01/09 Docusate [Colace] 100 mg PO DAILY PRN 02/24/17 Hydrocortisone [Cortef] 10 mg PO DAILY@1300 02/24/17 Hydrocortisone [Cortef] 15 mg PO QAM 02/24/17 Ubidecarenone [Co Q-10] 200 mg PO HS 02/24/17 Multivit-Min/Iron/Folic/Vfj359 [Hair, Skin and Nails Tablet] 2 tab PO DAILY@ 1200 03/31/17 Metoprolol Tartrate 25 mg PO DAILY 07/02/17 Rosuvastatin [Crestor] 5 mg PO HS 07/02/17 Ipratropium-Albuterol Nebulize [Duoneb 0.5 mg-3 mg/3 ml Soln] 3 ml INHALATION RT -QID PRN 08/02/17 Baclofen 5 mg PO BID PRN #60 tablet 08/27/17 Rivaroxaban [Xarelto] 10 mg PO DAILY 08/27/17 Denosumab [Prolia] 60 mg SQ Q180D 12/13/17 Gabapentin [Neurontin] 400 mg PO BID #60 cap 01/21/18 oxyCODONE HCL/ACETAMINOPHEN [Percocet 7.5-325 mg] 1 tab PO DAILY PRN #30 tab oxyCODONE-APAP 7.5-325MG [Percocet 7.5-325 mg] 1 tab PO DAILY PRN 03/04/18 Controlled Substance Measures - Controlled Substance Measures Is patient prescribed a controlled substance at discharge?: Yes When asked, does pt state using other controlled substances?: Yes If prescribed controlled substance>3 days was MAPS reviewed?: Yes If Rx opioid, was Start Talking consent form obtained?: Yes If opioid is for acute pain is fill amount 7 days or less?: Yes Was information provided regarding opioid addiction?: Yes
== END | disposition home or self-care (01) ==
LOC: PNWHC3 14:02
PROVIDERS: ATTEND Pain Medicine Pain Medicine
DX: M48.061 Spinal stenosis, lumbar region without neurogenic claudication (principal); M54.16 Radiculopathy, lumbar region; Z79.891 Long term (current) use of opiate analgesic; Z79.899 Other long term (current) drug therapy; Z79.51 Long term (current) use of inhaled steroids; Z79.2 Long term (current) use of antibiotics; Z87.891 Personal history of nicotine dependence
CPT/HCPCS: 80307; 80356; 99211

== ENCOUNTER → 2018-03-19 | Outpatient (CLI) | payer MEDICARE, BC ==
--- NOTE | 2018-03-19 12:11 | MR ---
EXAMINATION TYPE: MR lumbar spine wo con DATE OF EXAM: 03/19/2018 COMPARISON: MRI lumbar spine April 22, 2014. HISTORY: Radiculopathy and lumbar stenosis per order. Back pain into legs for 4 years per patient. TECHNIQUE: Multiplanar, multisequence imaging of the lumbar spine is performed without IV contrast. FINDINGS: Sagittal images of the lumbar spine show vertebral body heights to remain satisfactory. The re is grade 1 anterolisthesis of L4 on L5. Multilevel disc desiccation is present. There is fairly mo derate multilevel disc space narrowing and vacuum disc phenomenon. There is relative sparing of L5-S1 level. The conus medullaris remains normal in position and signal ending inferior L1 level. There i s mild to moderate spurring and heterogeneous endplate changes L1-L2 level identified with progressio n from prior MRI. Axial images at T12-L1 level redemonstrate small right paracentral disc protrusion axial image 29 eff acing anterolateral thecal sac, bilateral neural foramina are patent. Mild facet arthropathy bilatera lly is noted. No significant change from prior. Axial images at the L1-L2 level show mild to moderate broad disc bulge with right paracentral disc pr otrusion component and mild to moderate facet arthropathy and ligamentum flavum hypertrophy. There is effacement of the anterior and posterior lateral thecal sac on axial image 23. Finding slightly more prominent versus prior. There is mild to moderate right-sided anterior inferior neural foraminal jody rowing. Left-sided neural foramen is patent. Axial images at L2-L3 level show mild broad disc bulge and moderate facet degenerative changes and li gamentum flavum hypertrophy. There is mild effacement of left anterolateral thecal sac. Bilateral arcadio ral foramina are patent. Axial images at L3-L4 level show mild to moderate facet degenerative changes bilaterally. There is br oad disc bulge with left foraminal disc protrusion component axial image 13. Bilateral neural foramin a however remain patent. There is mild effacement of anterior thecal sac seen. Axial images at L4-L5 level show spondylolisthesis and broad disc bulge. There is advanced facet arth ropathy. There is significant effacement of the anterior and posterior lateral thecal sac on axial im age 8 causing most prominent spinal canal stenosis similar to prior MRI. There is encroachment on rig ht L4 nerve seen on sagittal image 12 similar to prior MRI. Left-sided neural foramen is narrowed Axial images at L5-S1 level show moderate to advanced facet degenerative changes bilaterally. Spinal canal is preserved. Bilateral neural foramina are patent. No suspicious retroperitoneal findings are seen.. IMPRESSION: Some progression in multilevel degenerative changes in the lumbar spine as detailed above , most prominent spinal canal stenosis is at the L4-L5 level similar to prior.
== END ==
LOC: RADMRIMAIN 09:58
PROVIDERS: ATTEND Pain Medicine Pain Medicine
DX: M48.061 Spinal stenosis, lumbar region without neurogenic claudication (principal); M43.16 Spondylolisthesis, lumbar region; M51.26 Other intervertebral disc displacement, lumbar region; M46.96 Unspecified inflammatory spondylopathy, lumbar region
CPT/HCPCS: 72148

== ENCOUNTER → 2018-04-29 | Outpatient (CLI) | payer MEDICARE, BC ==
[2018-04-29 13:55] VITALS: BP 134/76; PULSE 82; RESP 20
--- NOTE | 2018-04-29 14:42 | P.PN ---
Subjective Progress Note Date: 04/29/18 This is a 67-year-old morbidly obese female with history of chronic lower back pain with radiation to the lower extremities down to the knees. She denies any numbness or tingling in the lower extremities. She had a recent MRI on the lumbar spine which showed degenerative disc disease and lumbar stenosis at the L4 5 level .Today, pt denies new-onset weakness, bowel/bladder incontinence, or any other signs or symptoms of cauda equina syndrome. There are no signs of acute intoxication, and no indications of medication diversion or overuse. However she has increased frequency of urination. The patient takes Xarelto for history of PE in the past. In addition to above, 13-point review of systems is also negative for chest pain , shortness of breath, changes in vision, changes in hearing, new onset weakness , abdominal pain, diarrhea, extreme fatigue, malaise, fever, skin changes, homicidal or suicidal ideation, or bowel or bladder incontinence. Vital Signs: Reviewed in EMR Gen: WDWN, AAOx3, NAD, walks with cane HEENT: NCAT, EOMI, hearing grossly normal Pulm: resp unlabored Neuro exam of the lower extremities showed decreased muscle strength symmetrically to 4 out of 5 in general in the lower extremities. She has normal and symmetrical deep tendon reflexes bilaterally. Neck: supple, trachea midline The patient is sitting in a wheelchair when I examined her and she complains of severe pain in her lower back. Neuro: CN II-XII grossly intact Imaging: Reviewed in EMR Assessment: 1. sacroiliitis 2. lumbar DDD 3. chronic pain syndrome 4.morbid obesity 5.treatment with Xarelto 6. Lumbar stenosis Plan: 1. Explanation: Opioid and psychological risk scores were reviewed. Diagnoses , prognoses, and multiple treatment options including but not limited to physical therapy, interventional therapies, adjuvant medical therapies, narcotic medication therapies, and surgery were discussed with the patient and all questions were answered to the patient's satisfaction. 2. Opioid agreement: Patient has previously signed narcotic agreement, and was orally counseled to not overuse, abuse, divert, or cell medications, and to take them as prescribed by only 1 healthcare provider. The patient was also counseled to store opioid medications in a safe and preferably locked location. Patient was also counseled against driving while using narcotic medications and also to not use alcohol or any illicit or recreational drugs. The patient verbalized understanding that lack of compliance with any of the above and likely result in failure to renew narcotic prescriptions, possible discharge from the clinic, and possible legal ramifications thereafter if indicated. 3. Counseling: The patient was counseled extensively on BODY MASS INDEX, EXERCISE. Specifically, the patient was instructed regarding the importance of weight loss and exercise in the context of both chronic pain and overall health. 4. Procedures: scheduled for lumbar epidural steroid injection at the L4 5 level under fluoroscopic guidance 5. Consultations: None 6. Investigations: maps appropriate 7. Medications: Percocet 7.5/325 BID #30 with one refill + gabapentin 400 mg # 60 two refills, continue baclofen 5 mg BID with two refills 8. Disposition: f/u for procedure as scheduled Objective - Vital Signs Vital signs: Vital Signs Temp Pulse 82 04/29/18 13:49 Resp 20 04/29/18 13:49 BP 134/76 04/29/18 13:49 Pulse Ox 100 04/29/18 13:49 Intake & Output 04/28/18 04/29/18 04/29/18 18:59 06:59 18:59 Weight 108.862 kg
== END | disposition home or self-care (01) ==
LOC: PNWHC3 13:37
PROVIDERS: ATTEND Anesthesiology
DX: G89.4 Chronic pain syndrome (principal); M54.5 Low back pain; M48.061 Spinal stenosis, lumbar region without neurogenic claudication; M51.36 Other intervertebral disc degeneration, lumbar region; M46.1 Sacroiliitis, not elsewhere classified; E66.01 Morbid (severe) obesity due to excess calories; R35.0 Frequency of micturition; Z86.711 Personal history of pulmonary embolism; Z79.01 Long term (current) use of anticoagulants; Z68.42 Body mass index [BMI] 45.0-49.9, adult
CPT/HCPCS: 99211

== ENCOUNTER 2018-05-14 09:07 | Day surgery (SDC) | payer MEDICARE, BC ==
[2018-05-07 13:21] VITALS: BMI 46.8
[2018-05-14 10:29] VITALS: TEMP 98.5
[2018-05-14 10:56] LABS: Glucose,Whole Blood 94 mg/dL (75-99)
--- NOTE | 2018-05-14 11:27 | P.PCN ---
Date of Procedure: 05/14/18 Procedure(s) Performed: PREOPERATIVE DIAGNOSIS: 1- Lumbar Degenerative Disc Diseases 2-Lumbar spondylosis with Facet arthropathy without myelopathy POSTOPERATIVE DIAGNOSIS: 1-Lumber Degenerative Disc Diseases 2-Lumbar spondylosis with Facet arthropathy without myelopathy PROCEDURE 1. Lumbar epidural steroid injection under fluoroscopic guidance at the L5-S1 level. ( attempted at L4 5, was successful then after the procedure at the L5- S1 leveL ) 2. Lumbar epidurogram. ANESTHESIA: Local with 1% lidocaine 3 ml and , moderate sedation with intravenous Versed 2 mg ,and fentanyle 50 Mcg EBL: Minimal PROCEDURE INDICATION: The patient with low back pain and radiculitis symptoms unresponsive to conservative treatment. Fluoroscopy was used to optimize visualization of the needle placement and to maximize safety. PROCEDURE DESCRIPTION / TECHNIQUE: The patient was seen and identified in the preoperative area. Risks, benefits , complications including but not limited to infections ,bleeding ,allergic reaction to the medications ,nerve damage and not complete pain releife , and alternatives were discussed with the patient. The patient agreed to proceed with the procedure and signed the consent. IV was started, and vital signs were stable. Patient was taken to the OR and time out was completed. The patient was placed in the prone position on procedure table and a pillow was placed under the abdomen to reduce lumbar lordosis. The lumbosacral area was prepped and draped in the usual sterile fashion.ere closely monitored during the procedure. Conscious sedation was used during the procedure to decrease patients anxiety. Vital signs was monitered during the entire procedure. Using anterior-posterior fluoroscopy, the L4-5 , local infiltration of the skin and subcu tissue, a 20-gauge Tuohy needle advanced slowly under fluoroscopy, and attempt done to identify the epidural space was failed, then I have to do the procedure L5-S1 interlaminar space was identified and the skin over this site was marked and then infiltrated with 1% lidocaine subcutaneously. Subsequently, a 20-gauge Tuohy epidural needle was inserted and advanced toward the epidural space using the ``Loss of resistance technique and guided by AP and lateral fluoroscopy. The correct needle position in the epidural space was verified with the injection of 2 mL of the water soluble contrast dye Isovue 200 contrast and observing an excellent epidurogram with the epidural spread of the dye, after negative aspiration for blood and CSF and in the absence of paresthesias. Again after negative aspiration, a 6 ml mixture containing 40 mg of DePO MEDROL and 2 ml of preservative free Normal Saline, and 2 ml of preservative free lidocaine 1% solution was injected and a washout of epidurogram was seen. Needle was withdrawn intact, skin was cleansed, and bandages were applied. COMPLICATIONS: None DISPOSITION / PLANS: The patient was placed in a supine position and transferred to the recovery area in a stable condition for observation. There was no evidence of lower extremity motor or sensory deficit after the procedure. Patient was discharged from the recovery room after meeting discharge criteria. Home discharge instructions were given to the patient by the staff. The patient was reexamined prior to discharge. The patient will schedule a follow up in the clinic in 2-4 weeks.
[2018-05-14] MEDS ORDERED: IV FLUID CONTINUATION 1,000 ML IV ONE (11:38)
[2018-05-14 11:45] VITALS: RESP 18
[2018-05-14 12:26] VITALS: PULSE 85
[2018-05-14 12:27] VITALS: BP 145/64
--- NOTE | 2018-05-14 15:22 | FL ---
Fluoroscopy INDICATION: Pain FINDINGS: Fluoroscopy time: 10 seconds. Images obtained: 1. IMPRESSIONS: 1. Documentation of fluoroscopy.
== END 2018-05-14 12:55 | disposition home or self-care (01) ==
LOC: ORPAIN 09:07
PROVIDERS: ATTEND Specialist
DX: M51.16 Intervertebral disc disorders with radiculopathy, lumbar region (principal); M47.26 Other spondylosis with radiculopathy, lumbar region; J45.909 Unspecified asthma, uncomplicated; Z88.0 Allergy status to penicillin; Z88.1 Allergy status to other antibiotic agents; Z88.6 Allergy status to analgesic agent
CPT/HCPCS: 62323; J2250; J1030; J3010; Q9966; 99152

== ENCOUNTER 2018-05-28 07:45 | Day surgery (SDC) | payer MEDICARE, BC ==
[2018-05-21 15:59] VITALS: BMI 46.8
[2018-05-28 08:43] VITALS: TEMP 98.1
--- NOTE | 2018-05-28 08:47 | P.PCN ---
Date of Procedure: 05/28/18 Description of Procedure: PREOPERATIVE DIAGNOSIS: 1-lumbar radiculopathy 2-Lumbar spondylosis with Facet arthropathy without myelopathy POSTOPERATIVE DIAGNOSIS: Lumbar radiculopathy 2-Lumbar spondylosis with Facet arthropathy without myelopathy PROCEDURE 1. Lumbar epidural steroid injection under fluoroscopic guidance at the L5-S1 level. 2. Lumbar epidurogram. ANESTHESIA: Local with 1% lidocaine 3 ml and IV sedation with Versed 2 mg , and fentanyl 100 Mcg EBL: Minimal PROCEDURE INDICATION: The patient with low back pain and radiculitis symptoms unresponsive to conservative treatment. Fluoroscopy was used to optimize visualization of the needle placement and to maximize safety. PROCEDURE DESCRIPTION / TECHNIQUE: The patient was seen and identified in the preoperative area. Risks, benefits , complications including but not limited to infections ,bleeding ,allergic reaction to the medications ,nerve damage and not complete pain releife , and alternatives were discussed with the patient. The patient agreed to proceed with the procedure and signed the consent. IV was started, and vital signs were stable. Patient was taken to the OR and time out was completed. The patient was placed in the prone position on procedure table and a pillow was placed under the abdomen to reduce lumbar lordosis. The lumbosacral area was prepped and draped in the usual sterile fashion.ere closely monitored during the procedure. Conscious sedation was used during the procedure to decrease patients anxiety. Vital signs was monitered during the entire procedure. Using anterior-posterior fluoroscopy, the L5-S1 interlaminar space was identified and the skin over this site was marked and then infiltrated with 1% lidocaine subcutaneously. Subsequently, a 20-gauge Tuohy epidural needle was inserted and advanced toward the epidural space using the ``Loss of resistance technique and guided by AP and lateral fluoroscopy. The correct needle position in the epidural space was verified with the injection of 2 mL of the water soluble contrast dye Omnipaque 180 contrast and observing an excellent epidurogram with the epidural spread of the dye, after negative aspiration for blood and CSF and in the absence of paresthesias. Again after negative aspiration, a 6 ml mixture containing 20 mg of Dexamethasone and 4 ml of preservative free Normal Saline was injected and a washout of epidurogram was seen. Needle was withdrawn intact, skin was cleansed, and bandages were applied. COMPLICATIONS: None DISPOSITION / PLANS: The patient was placed in a supine position and transferred to the recovery area in a stable condition for observation. There was no evidence of lower extremity motor or sensory deficit after the procedure. Patient was discharged from the recovery room after meeting discharge criteria. Home discharge instructions were given to the patient by the staff. The patient was reexamined prior to discharge. The patient will schedule a follow up in the clinic in 2-4 weeks.
[2018-05-28] MEDS ORDERED: IV FLUID CONTINUATION 1,000 ML IV ONE (09:40)
[2018-05-28 09:43] VITALS: RESP 16
--- NOTE | 2018-05-28 10:06 | FL ---
Fluoroscopy HISTORY: Pain 3 seconds fluoroscopy time supplied to the referring clinician. 2 intraoperative C-arm images docume nt the procedure. See dictated report from anesthesia.
[2018-05-28 10:09] VITALS: BP 106/77; PULSE 81
[2018-05-28 17:12] LABS: Glucose,Whole Blood 88 mg/dL (75-99)
== END 2018-05-28 10:10 | disposition home or self-care (01) ==
LOC: ORPAIN 07:45
PROVIDERS: ATTEND Anesthesiology
DX: M47.26 Other spondylosis with radiculopathy, lumbar region (principal); Z86.711 Personal history of pulmonary embolism; M48.061 Spinal stenosis, lumbar region without neurogenic claudication; M46.1 Sacroiliitis, not elsewhere classified; M51.16 Intervertebral disc disorders with radiculopathy, lumbar region; G89.4 Chronic pain syndrome; E66.01 Morbid (severe) obesity due to excess calories; Z88.0 Allergy status to penicillin; Z88.1 Allergy status to other antibiotic agents; Z88.3 Allergy status to other anti-infective agents; Z79.01 Long term (current) use of anticoagulants; Z68.42 Body mass index [BMI] 45.0-49.9, adult
CPT/HCPCS: 62323; J2250; J1100; J3010; Q9966

== ENCOUNTER → 2018-06-24 | Outpatient (CLI) | payer MEDICARE, BC ==
[2018-06-24 15:17] VITALS: BP 117/79; PULSE 87; RESP 20
--- NOTE | 2018-06-24 16:08 | P.PAINPG ---
Subjective Progress Note Date: 06/24/18 This is follow-up visit for this patient with a history of severe and chronic low back pain secondary to lumbar degenerative disc disease, lumbar facet arthropathy, We have done an interventional pain procedure radiofrequency ablation of medial branch lumbar area, and that helped her low back pain, but she continue to have radicular symptoms And recently we have done lumbar epidural steroid injections, which helped her radicular symptoms, she is wheelchair bound, The patient currently on Percocet 7.5/325 once a day and Neurontin 400 mg twice a day Patient denies any side effect of the medication , patient denies any excessive drowsiness or sleepiness, patient denies any suicidal ideation, Patient reported that the current medication is helping to control the pain and improve the activity of daily livings, Patient denies any motor or sensory deficit, denies any change in the bowel movement or urination, patient denies any fever or night sweats. Patient here today for follow-up visit and medication refill Objective - Vital Signs Vital signs: Vital Signs Temp Pulse 87 06/24/18 15:09 Resp 20 06/24/18 15:09 BP 117/79 06/24/18 15:09 Pulse Ox 94 L 06/24/18 15:09 Intake & Output 06/23/18 06/24/18 06/24/18 18:59 06:59 18:59 Weight 108.862 kg - Exam Physical Examinations : 1-Constitutiona : Cooperative , not in acute distress . 2-HEENT : nech ; supple , no Lymphadenopathy , normal thyroid size . eyes : no ptosis , no icterus , no photophobia . ENT : normal of hearing , normal oropharynx , no Thrush . 3- Respiratory : Chest clear to auscultations Bilaterally , no wheezing , no Rhonchi . 4- Cardiovascular : regular rate and rhythem , S1 , S2 , no S3 , no S4. 5- Gastrointestinal : abdomen soft no tenderness , bowel sounds , no organomegally . 6- Genitourinary : Defferred . 7- neurologic : Cranial nerve II to XII intact , no focal neurological deffecit . 8-psychatric : alert , oriented X 3 , appropriate affect , intact judgment and insight . 9-Lymphatic : no Lymphadenopathy . 10- musculoskeltal : Lumber spine moter stegnth lower extremities ,thigh and legs 3-4/5 Right side , 3-4/5 Left side deep tendon reflexes : normal Knee Jerk , normal ankle Jerk positive lumber facet Loading Test Range of motion of the lumbar spine Flexion 30 degrees, extension 10 degrees strait leg raising test , positive at 30 degree Fabere test positive RT and positive LT . Assessment and Plan Plan: Assessment and plan= chronic low back pain secondary to lumbar degenerative disc disease , lumbar spondylosis with lumbar facet arthropathy . chronic and current use of high-risk medication (opioids) Patient denies any side effects of the current pain medication and the current treatment/medication helping the patient to do activity of daily living , Diagnoses, prognosis, treatment options, including but not limited to physical therapy, medication management, interventional therapies, and surgery, were discussed with the patient All the questions answered The narcotic consent was signed and patient agreed and understood the side effects and complications of opioid treatment. Patient signed the narcotic agreement, and was orally counseled, not to overuse, not to abuse, not to Divert , not tp sell pain medication, and to take it as prescribed only, Patient was counseled not to drive or operate heavy equipment while using narcotic medication, and advised not to use alcohol or any Illicit drugs while using the narcotis, the patient's verbalized understanding that lack of compliance with any of the above instructions, will likely to cause discharge from, the pain service, not to renew his narcotic prescriptions MAPS Reviwed and it was apropriate . Medication managements= patient will be given prescription refills for Percocet 7.5/325 dispense 30 with one refill, Neurontin 400 mg twice a day dispense 60 with 1 refills. In the future if she has more pain then we will consider doing lumbar epidural steroid injections, UDS ordered , Time with Patient: Less than 30 PQRS Measure Charge Sheet Measure #130: Documentation of Current Meds in Medical Chart: Patient's medications documented in chart Measure #226: Tobacco Use: Screen & Cessation Intervention: Pt not a tobacco user Measure #111: Pneumonia Vaccination: Pneumococcal vaccine administered or previously received Measure #47: Advance Care Plan: Advance care planning discussed & documented, pt chose/unable to give Measure #412: Opioid Treatment Agreement: Documented signed opioid trtmnt agreemnt min once during opioid trtmnt Measure #408: Opioid Therapy Follow-up Evaluation: Patient had f/u eval minimum every 3 months during opioid therapy Measure #317: Preventitive Care & Scrn High Bld Press & F/U: Normal blood pressure, f/u not required Measure #128: Body Mass Index (BMI) Screening & Follow-up: BMI documented ABOVE normal parameters - f/u documented Measure #131: Pain Assessment & Follow-up: Pain positive & plan documented, Follow-up scheduled Measure #431: Unhealthy Alcohol Use Preventative Care & Scrn: Patient not identified as an unhealthy alcohol user PQRS Narrative: Smoking Status Former smoker Do You Want the Pneumonia Vaccine Up to Date Vaccine AT THIS TIME? Narcotic Agreement Date Signed 04/05/16 Blood Pressure 117/79 Pain Intensity [Lower Back] 8 Scale Used Numeric (1 - 10) Hx Alcohol Use (MH) No Home Medications: Ambulatory Orders Fluticasone Propionate [Flovent Hfa 220MCG] 2 puff INHALATION RT-BID 10/19/14 Furosemide [Lasix] 20 mg PO DAILY PRN 10/19/14 Salmeterol Xinafoate [Serevent Diskus] 1 puff INHALATION RT-BID 10/19/14 Albuterol Inhaler [Ventolin Hfa Inhaler] 2 puff INHALATION RT-Q6H PRN 11/05/14 Calcium Carbonate/Vitamin D3 [Calcium 600-Vit D3 400 Tablet] 2 tab PO PC-SUPPER 06/25/15 Cetirizine HCl [Zyrtec] 10 mg PO DAILY PRN 01/27/16 Esomeprazole Magnesium [NexIUM] 40 mg PO QAM 04/05/16 Multivitamin [Multivitamins Adult Gummies] 2 tab PO DAILY 05/07/16 Azithromycin [Zithromax] 250 mg PO MOWEFR 08/08/16 Vit C/E/Zn/Coppr/Lutein/Zeaxan [Preservision Areds 2 Softgel] 1 cap PO BID 01/09 Hydrocortisone [Cortef] 10 mg PO DAILY@1300 02/24/17 Hydrocortisone [Cortef] 15 mg PO QAM 02/24/17 Ubidecarenone [Co Q-10] 200 mg PO HS 02/24/17 Multivit-Min/Iron/Folic/Kmg224 [Hair, Skin and Nails Tablet] 2 tab PO DAILY@ 1200 03/31/17 Metoprolol Tartrate 25 mg PO DAILY 07/02/17 Rosuvastatin [Crestor] 5 mg PO HS 07/02/17 Baclofen 5 mg PO BID PRN #60 tablet 08/27/17 Rivaroxaban [Xarelto] 10 mg PO DAILY 08/27/17 Denosumab [Prolia] 60 mg SQ Q180D 12/13/17 Levothyroxine Sodium [Synthroid] 100 mcg PO DAILY 05/21/18 Aspirin/Acetaminophen/Caffeine [Excedrin Migraine Caplet] 2 each PO DAILY Ipratropium-Albuterol Nebulize [Duoneb 0.5 mg-3 mg/3 ml Soln] 3 ml INHALATION TID 05/28/18 Polyethylene Glycol 3350 [Miralax] 17 gm PO DAILY 05/28/18 Ergocalciferol (Vitamin D2) [Vitamin D2] 1 tab PO DAILY 06/24/18 Gabapentin [Neurontin] 400 mg PO BID #60 cap 06/24/18 oxyCODONE HCL/ACETAMINOPHEN [Percocet 7.5-325 mg] 1 tab PO Q24HR PRN 30 Days # 30 tab 06/24/18 oxyCODONE-APAP 7.5-325MG [Percocet 7.5-325 mg] 1 tab PO DAILY PRN 30 Days #30 tab 06/24/18 Controlled Substance Measures - Controlled Substance Measures Is patient prescribed a controlled substance at discharge?: Yes When asked, does pt state using other controlled substances?: No If prescribed controlled substance>3 days was MAPS reviewed?: Yes If Rx opioid, was Start Talking consent form obtained?: Yes If opioid is for acute pain is fill amount 7 days or less?: No Was information provided regarding opioid addiction?: Yes
== END | disposition home or self-care (01) ==
LOC: PNWHC3 13:32
PROVIDERS: ATTEND Specialist
DX: G89.29 Other chronic pain (principal); M54.5 Low back pain; M51.36 Other intervertebral disc degeneration, lumbar region; M47.816 Spondylosis without myelopathy or radiculopathy, lumbar region; M46.86 Other specified inflammatory spondylopathies, lumbar region; F11.90 Opioid use, unspecified, uncomplicated; Z87.891 Personal history of nicotine dependence
CPT/HCPCS: 80307; G0482; G0463; 99211

== ENCOUNTER → 2018-06-26 | Outpatient (CLI) | payer MEDICARE, BC ==
--- NOTE | 2018-06-26 14:32 | MM ---
Reason for exam: screening (asymptomatic). Last mammogram was performed 1 year ago. History: Patient is postmenopausal. Physical Findings: A clinical breast exam by your physician is recommended on an annual basis and results should be correlated with mammographic findings. MG 3D Screening Mammo W/Cad Bilateral CC and MLO view(s) were taken. CV view(s) were taken of the right breast. Prior study comparison: June 18, 2017, bilateral MG 3d screening mammo w/cad. May 02, 2016, bilateral MG 3d screening mammo w/cad. There are scattered fibroglandular densities. There are benign appearing round calcifications bilaterally. There is chronic nodularity in the left breast. There is no discrete abnormality. ASSESSMENT: Benign, BI-RAD 2 RECOMMENDATION: Routine screening mammogram of both breasts in 1 year.
== END | disposition home or self-care (01) ==
LOC: RADMAMWWP 10:55
PROVIDERS: ATTEND Family Medicine
DX: Z12.31 Encounter for screening mammogram for malignant neoplasm of breast (principal)
CPT/HCPCS: 77063; 77067

== ENCOUNTER 2018-06-27 07:05 | Emergency (ER) | payer MEDICARE, BC ==
--- NOTE | 2018-06-27 07:39 | XR ---
EXAMINATION TYPE: XR foot complete LT DATE OF EXAM: 06/27/2018 CLINICAL HISTORY: pain TECHNIQUE: Frontal, lateral and oblique images of the left foot are obtained. COMPARISON: None. FINDINGS: There is no acute fracture/dislocation evident. The joint spaces appear within normal noel its. The overlying soft tissue appears unremarkable. Plantar calcaneal spurs noted. IMPRESSION: There is no acute fracture or dislocation. ICD 10 NO FRACTURE, INITIAL EVALUATION
--- NOTE | 2018-06-27 08:39 | ED ---
General Adult HPI - General Chief complaint: Extremity Problem,Nontraumatic Stated complaint: LEFT FOOT PAIN Time Seen by Provider: 06/27/18 08:11 Source: patient, RN notes reviewed Mode of arrival: wheelchair Limitations: no limitations - History of Present Illness Initial comments: Patient is a 67-year-old male presented to the emergency room today with a chief complaint of left foot pain that started yesterday. She states she did notice it when she was walking around. Denies any injury or trauma. States that the top of the left foot that is tender. States she woke up this morning started felt okay but when she went to stepdown still having pain. Patient does admit to some local redness. She denies any other complaints or symptoms. Patient denies any recent fever, chills, shortness of breath, chest pain, back pain, abdominal pain, nausea or vomiting, numbness or tingling, headaches or visual changes, or any other complaints. - Related Data Home Medications Medication Instructions Recorded Confirmed Fluticasone Propionate [Flovent 2 puff INHALATION RT-BID 10/19/14 06/27/18 Hfa 220MCG] Furosemide [Lasix] 20 mg PO DAILY PRN 10/19/14 06/27/18 Salmeterol Xinafoate [Serevent 1 puff INHALATION RT-BID 10/19/14 06/27/18 Diskus] Albuterol Inhaler [Ventolin Hfa 2 puff INHALATION RT-Q6H PRN 11/05/14 06/27/18 Inhaler] Calcium Carbonate/Vitamin D3 1 tab PO BID 06/25/15 06/27/18 [Calcium 600-Vit D3 400 Tablet] Cetirizine HCl [Zyrtec] 10 mg PO DAILY PRN 01/27/16 06/27/18 Esomeprazole Magnesium [NexIUM] 40 mg PO QAM 04/05/16 06/27/18 Multivitamin [Multivitamins Adult 1 tab PO DAILY 05/07/16 06/27/18 Gummies] Azithromycin [Zithromax] 250 mg PO MOWEFR 08/08/16 06/27/18 Vit C/E/Zn/Coppr/Lutein/Zeaxan 1 cap PO BID 01/09/17 06/27/18 [Preservision Areds 2 Softgel] Hydrocortisone [Cortef] 10 mg PO DAILY@1300 02/24/17 06/27/18 Hydrocortisone [Cortef] 15 mg PO QAM 02/24/17 06/27/18 Ubidecarenone [Co Q-10] 200 mg PO HS 02/24/17 06/27/18 Multivit-Min/Iron/Folic/Eph159 2 tab PO DAILY@1200 03/31/17 06/27/18 [Hair, Skin and Nails Tablet] Metoprolol Tartrate 25 mg PO DAILY 07/02/17 06/27/18 Rivaroxaban [Xarelto] 10 mg PO DAILY 08/27/17 06/27/18 Denosumab [Prolia] 60 mg SQ Q180D 12/13/17 06/27/18 Aspirin/Acetaminophen/Caffeine 2 tab PO DAILY PRN 05/28/18 06/27/18 [Excedrin Migraine Caplet] Ipratropium-Albuterol Nebulize 3 ml INHALATION RT-QID 05/28/18 06/27/18 [Duoneb 0.5 mg-3 mg/3 ml Soln] Baclofen 10 mg PO BID PRN 06/27/18 06/27/18 Benzonatate [Tessalon Perles] 100 mg PO TID PRN 06/27/18 06/27/18 Cholecalciferol [Vitamin D3] 1,000 unit PO DAILY 06/27/18 06/27/18 Dulcoease 100 mg PO DAILY PRN 06/27/18 06/27/18 Levothyroxine Sodium [Synthroid] 112 mcg PO DAILY 06/27/18 06/27/18 Magnesium Gluconate [Magonate] 500 mg PO DAILY 06/27/18 06/27/18 Rosuvastatin Calcium [Crestor] 5 mg PO DAILY 06/27/18 06/27/18 Vitamin C Gummies 250 mg PO DAILY 06/27/18 06/27/18 Previous Rx's Medication Instructions Recorded Gabapentin [Neurontin] 400 mg PO BID #60 cap 06/24/18 oxyCODONE-APAP 7.5-325MG [Percocet 1 tab PO DAILY PRN 30 Days #30 tab 06/24/18 7.5-325 mg] Clindamycin HCl 300 mg PO Q6H #40 cap 06/27/18 Allergies Allergy/AdvReac Type Severity Reaction Status Date / Time cefuroxime axetil Allergy Dyspnea Verified 06/27/18 07:59 [From Ceftin] moxifloxacin HCl Allergy Dyspnea Verified 06/27/18 07:59 [From Avelox] Penicillins Allergy Dyspnea Verified 06/27/18 07:59 rofecoxib [From Vioxx] Allergy Dyspnea Verified 06/27/18 07:59 blackberry Allergy Rash/Hives Uncoded 06/27/18 07:18 Review of Systems ROS Statement: Those systems with pertinent positive or pertinent negative responses have been documented in the HPI. ROS Other: All systems not noted in ROS Statement are negative. 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 MTHFR GENE. STUCCO KERATOSIS, past fxs of L foot and R ankle, sciatic problems, diverticulitis, hypothyroid History of Any Multi-Drug Resistant Organisms: None Reported Past Surgical History: Section, Cholecystectomy, Heart Catheterization , Orthopedic Surgery Additional Past Surgical History / Comment(s): RT ANKLE- PLATE & SCREWS, COLONOSCOPIES, EGDs, Bronchial Thermoplasty X3., KENDALL CATARACTS with lens implants. DEVIATED SEPTUM SURGERY. MULTIPLE BRONCHOSCOPIES, [facility] PROCEDURES Past Anesthesia/Blood Transfusion Reactions: No Reported Reaction Additional Past Anesthesia/Blood Transfusion Reaction / Comment(s): Pt has never received blood. DAUGHTER PONV Past Psychological History: No Psychological Hx Reported Smoking Status: Former smoker Past Alcohol Use History: None Reported Past Drug Use History: None Reported - Past Family History Father Family Medical History: Cancer Additional Family Medical History / Comment(s): colon Mother Family Medical History: Congestive Heart Failure (CHF) Additional Family Medical History / Comment(s): emphysema Daughter(s) Family Medical History: Deep Vein Thrombosis (DVT) General Exam - General Exam Comments Initial Comments: General: The patient is awake and alert, in no distress, and does not appear acutely ill. Neck: The neck is supple, there is no tenderness or JVD. Cardiovascular: There is a regular rate and rhythm. No murmur, rub or gallop is appreciated. Respiratory: Lungs are clear to auscultation, respirations are non-labored, breath sounds are equal. No wheezes, stridor, rales, or rhonchi. Musculoskeletal: Patient does have normal appearance of left foot no obvious formed.. Pulses 2+ per strength is 5/5. Shows full range of motion. Does have tenderness greatest over the fourth metatarsal. Some local increased warmth. Mild area of redness locally. Neurological: A&O x 3. CN II-XII intact, There are no obvious motor or sensory deficits. Coordination appears grossly intact. Speech is normal. Skin: Skin is warm and dry and no rashes or lesions are noted. Psychiatric: Normal mood and affect. Limitations: no limitations Course Vital Signs 06/27/18 07:16 Temperature 99.2 F Pulse Rate 89 Respiratory 18 Rate Blood Pressure 151/84 O2 Sat by Pulse 95 Oximetry Medical Decision Making - Medical Decision Making X-ray reviewed negative for any acute fracture dislocation. Results were discussed with the patient. There is some mild redness and warmth locally. Was discussed about possible superficial thrombophlebitis versus an early cellulitis. Patient was started on antibiotics cover for infection. She is advised anti-inflammatories warm compresses. Advised follow-up family physician return here to emergency room if any symptoms increase or worsen. Disposition Clinical Impression: Cellulitis Disposition: HOME SELF-CARE Condition: Good Instructions: Superficial Thrombophlebitis (ED) Additional Instructions: Please use medication as discussed. Please follow-up with family doctor in the next 2 days of symptoms have not improved. Please return to emergency room if the symptoms increase or worsen or for any other concerns. Prescriptions: Clindamycin HCl 300 mg PO Q6H #40 cap Is patient prescribed a controlled substance at d/c from ED?: No Referrals: Karli Wallace MD [Primary Care Provider] - 1-2 days Time of Disposition: 08:39
[2018-06-27 09:00] VITALS: BP 138/70; PULSE 80; RESP 16; TEMP 97.8
== END 2018-06-27 08:59 | disposition home or self-care (01) ==
LOC: EC 07:05
DX: L03.116 Cellulitis of left lower limb (principal); J44.9 Chronic obstructive pulmonary disease, unspecified; E78.5 Hyperlipidemia, unspecified; M19.90 Unspecified osteoarthritis, unspecified site; K58.9 Irritable bowel syndrome, unspecified; E03.9 Hypothyroidism, unspecified; Z87.891 Personal history of nicotine dependence; Z79.51 Long term (current) use of inhaled steroids; Z79.899 Other long term (current) drug therapy; Z88.1 Allergy status to other antibiotic agents; Z88.0 Allergy status to penicillin; Z88.8 Allergy status to other drugs, medicaments and biological substances; Z91.018 Allergy to other foods; Z95.818 Presence of other cardiac implants and grafts
CPT/HCPCS: 99283

== ENCOUNTER 2018-07-18 10:25 | Day surgery (SDC) | payer MEDICARE, BC ==
[2018-07-16 12:28] VITALS: BMI 46.4
[~2018-07-18 10:25] MED LIST changes: +ALBUTEROL NEB (CONC) 2.5 MG/0.5 ML INHALATION ONE; +ATROPINE SULFATE 0.4 MG/ML 1 ML VIAL IM ONE; +LACTATED RINGERS 1,000 ML IV ONE; +LIDOCAINE 1% 20 ML VIAL (10MG/ML) FOR IV START INTRADERMA PRN; +LIDOCAINE 2% (PF) 20 MG/ML 2 ML AMP INHALATION ONE; +LIDOCAINE VISCOUS 2% 15 ML CUP TOPICAL ONE
[2018-07-18 11:06] VITALS: RESP 16; TEMP 99
[2018-07-18] MEDS ORDERED: KETAMINE 10 MG/ML 20 ML VIAL ONE (12:01)
[2018-07-18] MEDS ORDERED: LIDOCAINE 1% INJ 10MG/ML (20 ML MDV) ONE (12:01)
[2018-07-18] MEDS ORDERED: PROPOFOL 10 MG/ML 20 ML VIAL IV ONE (12:01)
[2018-07-18] MEDS ORDERED: MIDAZOLAM 2 MG/2 ML VIAL ONE (12:01)
[2018-07-18] MEDS ORDERED: LIDOCAINE 2% INJ 20 MG/ML INTRATRACH ONE (12:12)
[2018-07-18 12:36] VITALS: BP 128/77; PULSE 99
[2018-07-18 17:15] LABS: Appearance,BF Hazy; Color,BF Colorless; Nucleated Cells, Body Fluid 10 /uL; RBC, Body Fluid 1455 /uL
--- NOTE | 2018-07-18 20:12 | PCN ---
PROCEDURE NOTE PROCEDURE PERFORMED: Bronchoscopy airway examination, therapeutic lavage, BAL. The patient's procedure took great place in room #2. There was informed consent and universal timeout. BLUE[employer]ER provided unconscious sedation and general anesthesia. OPERATORS: Dr. Snider. REASON FOR THE PROCEDURE: Severe chronic bronchial asthma with retained secretions. The BAL was in the right middle lobe. DESCRIPTION OF PROCEDURE: After the patient was adequately sedated and being fully monitored, the bronchoscope was inserted through the right nostril. It passed through the right nasopharynx into the oropharynx. The hypopharynx was identified and topicalized. The hypopharyngeal structures all appeared relatively normal. The anterior commissure, true cords, false cords, arytenoids, piriform sinuses, right and left vallecula and epiglottis all appeared normal. After topicalization, the bronchoscope was pushed through the glottic opening into the trachea. There was some collapsibility of the trachea. Trachea luz elena was sharp. The right and left mainstem were topicalized. The right upper lobe and its 3 segments, right middle lobe and its 2 segments, right lower lobe and its 5 segments, left upper lobe proper and its 2 segments, lingula and its 2 segments and left lower lobe and its 4 segments all had similar findings of diffuse bronchitis. There was mucosal erythema and hyperemia. The airways were friable. They bled easily. There were thick white secretions noted throughout. They were suctioned with some difficulty. Saline was used to suction the secretions. The bronchoscope was wedged into the right middle lobe. The BAL took place. The patient tolerated the procedure well. Additional secretions were suctioned and the bronchoscope was withdrawn. The patient will be recovered. I will speak to the patient's who brought in here today. MMODL / IJN: [id number] /
== END 2018-07-18 13:09 | disposition home or self-care (01) ==
LOC: ORWHC2ENDO 10:25
PROVIDERS: ATTEND Internal Medicine Critical Care Medicine
DX: J45.998 Other asthma (principal); J40 Bronchitis, not specified as acute or chronic; K21.9 Gastro-esophageal reflux disease without esophagitis; E27.40 Unspecified adrenocortical insufficiency; E03.9 Hypothyroidism, unspecified; Z86.711 Personal history of pulmonary embolism; M81.0 Age-related osteoporosis without current pathological fracture; Z79.2 Long term (current) use of antibiotics; Z79.891 Long term (current) use of opiate analgesic; Z79.51 Long term (current) use of inhaled steroids; Z79.52 Long term (current) use of systemic steroids; Z79.899 Other long term (current) drug therapy; Z79.890 Hormone replacement therapy; Z79.01 Long term (current) use of anticoagulants; Z88.1 Allergy status to other antibiotic agents; Z88.0 Allergy status to penicillin; Z88.8 Allergy status to other drugs, medicaments and biological substances
CPT/HCPCS: 94640; 87798 ×3; 87496; 87498; 87529; 88108; 88305; 89050; 87252; 87502; 87634; 87070; 87205; 87116; 87102; 87206; 31624; J2001 ×3; J2250; J0461; J2704

== ENCOUNTER 2018-08-01 04:58 | Emergency (ER) | payer MEDICARE, BC ==
[2018-08-01 05:06] VITALS: TEMP 98.8
[2018-08-01 05:27] VITALS: RESP 18
--- NOTE | 2018-08-01 05:48 | XR ---
EXAMINATION TYPE: XR chest 2V DATE OF EXAM: 08/01/2018 COMPARISON: 08/02/2017 HISTORY: Short of breath TECHNIQUE: Frontal and lateral views of the chest are obtained. FINDINGS: There is no heart failure nor confluent pneumonic infiltrate. Costophrenic angles are desi r. Heart size is normal. There are chest leads. Bony thorax is intact. IMPRESSION: No active cardiopulmonary disease. Normal heart. No change.
[2018-08-01 06:28] LABS: Basophils % (A) 1 %; Eosinophils # (A) 0.2 k/uL (0-0.7); Eosinophils % (A) 2 %; HCT 43.7 % (34.0-46.0); HGB 13.9 gm/dL (11.4-16.0); Lymphocytes # (A) 1.9 k/uL (1.0-4.8); Lymphocytes % (A) 23 %; MCH 30.2 pg (25.0-35.0); MCHC 31.9 g/dL (31.0-37.0); MCV 94.8 fL (80.0-100.0); Mean Platelet Volume 8.2; Monocytes # (A) 0.6 k/uL (0-1.0); Monocytes % (A) 8 %; Neutrophils % (A) 62 %; Platelet Count 253 k/uL (150-450); RBC 4.61 m/uL (3.80-5.40); RDW 13.8 % (11.5-15.5)
[2018-08-01 06:41] LABS: ALT 44 U/L (9-52); AST 30 U/L (14-36); Albumin 3.8 g/dL (3.5-5.0); Alkaline Phosphatase 44 U/L (38-126); Anion Gap 6 mmol/L; Blood Urea Nitrogen 20 mg/dL (7-17); Calcium 8.9 mg/dL (8.4-10.2); Carbon Dioxide 22 mmol/L (22-30); Chloride 112 mmol/L (98-107); D-Dimer 0.25 mg/L FEU (<0.60); Glucose 91 mg/dL (74-99); Partial Thromboplastin Time 23.4 sec (22.0-30.0); Potassium 4.8 mmol/L (3.5-5.1); Prothrombin Time 10.1 sec (9.0-12.0); Sodium 140 mmol/L (137-145); Total Bilirubin 0.8 mg/dL (0.2-1.3); Total Protein 6.7 g/dL (6.3-8.2)
[2018-08-01 06:48] LABS: Creatine Kinase 162 U/L (30-135)
[2018-08-01] MEDS ORDERED: methylPREDNISolone SOD SUCCI 125 MG/2 ML VIAL IV STA (07:00)
[2018-08-01 07:01] LABS: Troponin I <0.012 ng/mL (0.000-0.034)
[2018-08-01] MEDS ORDERED: IPRATROPIUM-ALBUTEROL 3 ML NEB INHALATION STA (07:01)
--- NOTE | 2018-08-01 07:17 | ED ---
SOB HPI - General Source: patient, family Mode of arrival: ambulatory Limitations: no limitations - History of Present Illness MD Complaint: shortness of breath, cough, "asthma attack" Onset/Timin -: days(s) Consistency: constant Improves With: nothing Worsens With: nothing Known History Of: asthma Associated Symptoms: denies other symptoms Treatments Prior to Arrival: none <Hitesh Sullivan - Last Filed: 08/01/18 08:06> <Tony Hyde - Last Filed: 08/01/18 09:04> - General Chief Complaint: Shortness of Breath Stated Complaint: CECILIA Time Seen by Provider: 08/01/18 06:23 - History of Present Illness Initial Comments: This patient is a 68-year-old woman who presents with what she is referring to as worsening of her asthma. She states for the past 2-3 days she has been feeling progressively more wheezy. She has had nonproductive cough. She states she is feeling some shortness of breath. (Hitesh Sullivan) - Related Data Home Medications Medication Instructions Recorded Confirmed Fluticasone Propionate [Flovent 2 puff INHALATION RT-BID 10/19/14 08/01/18 Hfa 220MCG] Furosemide [Lasix] 20 mg PO DAILY PRN 10/19/14 08/01/18 Salmeterol Xinafoate [Serevent 1 puff INHALATION RT-BID 10/19/14 08/01/18 Diskus] Albuterol Inhaler [Ventolin Hfa 2 puff INHALATION RT-Q6H PRN 11/05/14 08/01/18 Inhaler] Calcium Carbonate/Vitamin D3 1 tab PO BID 06/25/15 08/01/18 [Calcium 600-Vit D3 400 Tablet] Cetirizine HCl [Zyrtec] 10 mg PO DAILY 01/27/16 08/01/18 Esomeprazole Magnesium [NexIUM] 40 mg PO QAM 04/05/16 08/01/18 Multivitamin [Multivitamins Adult 1 tab PO DAILY 05/07/16 08/01/18 Gummies] Azithromycin [Zithromax] 250 mg PO MOWEFR 08/08/16 08/01/18 Vit C/E/Zn/Coppr/Lutein/Zeaxan 1 cap PO BID 01/09/17 08/01/18 [Preservision Areds 2 Softgel] Hydrocortisone [Cortef] 5 mg PO DAILY@1300 02/24/17 08/01/18 Hydrocortisone [Cortef] 15 mg PO QAM 02/24/17 08/01/18 Ubidecarenone [Co Q-10] 200 mg PO HS 02/24/17 08/01/18 Multivit-Min/Iron/Folic/Wsl235 2 tab PO DAILY@1200 03/31/17 08/01/18 [Hair, Skin and Nails Tablet] Metoprolol Tartrate 25 mg PO DAILY 07/02/17 08/01/18 Rivaroxaban [Xarelto] 10 mg PO DAILY 08/27/17 08/01/18 Denosumab [Prolia] 60 mg SQ Q180D 12/13/17 08/01/18 Aspirin/Acetaminophen/Caffeine 2 tab PO DAILY PRN 05/28/18 08/01/18 [Excedrin Migraine Caplet] Ipratropium-Albuterol Nebulize 3 ml INHALATION RT-QID 05/28/18 08/01/18 [Duoneb 0.5 mg-3 mg/3 ml Soln] Baclofen 10 mg PO BID PRN 06/27/18 08/01/18 Benzonatate [Tessalon Perles] 100 mg PO TID PRN 06/27/18 08/01/18 Cholecalciferol [Vitamin D3] 1,000 unit PO DAILY 06/27/18 08/01/18 Dulcoease 100 mg PO DAILY PRN 06/27/18 08/01/18 Levothyroxine Sodium [Synthroid] 112 mcg PO DAILY 06/27/18 08/01/18 Magnesium Gluconate [Magonate] 500 mg PO DAILY 06/27/18 08/01/18 Rosuvastatin Calcium [Crestor] 5 mg PO DAILY 06/27/18 08/01/18 Vitamin C Gummies 250 mg PO DAILY 06/27/18 08/01/18 Previous Rx's Medication Instructions Recorded Gabapentin [Neurontin] 400 mg PO BID #60 cap 06/24/18 oxyCODONE-APAP 7.5-325MG [Percocet 1 tab PO DAILY PRN 30 Days #30 tab 06/24/18 7.5-325 mg] predniSONE 60 mg PO DAILY #30 tab 08/01/18 Allergies Allergy/AdvReac Type Severity Reaction Status Date / Time cefuroxime axetil Allergy Dyspnea Verified 08/01/18 07:50 [From Ceftin] moxifloxacin HCl Allergy Dyspnea Verified 08/01/18 07:50 [From Avelox] Penicillins Allergy Dyspnea Verified 08/01/18 07:50 rofecoxib [From Vioxx] Allergy Dyspnea Verified 08/01/18 07:50 blackberry Allergy Rash/Hives Uncoded 08/01/18 05:06 Review of Systems ROS Other: All systems not noted in ROS Statement are negative. Constitutional: Denies: fever, chills, weakness Respiratory: Reports: cough, dyspnea, wheezes. Denies: hemoptysis Cardiovascular: Denies: chest pain, palpitations, edema Gastrointestinal: Denies: abdominal pain, nausea, vomiting Musculoskeletal: Denies: back pain Skin: Denies: rash Neurological: Denies: headache, weakness, numbness <Hitesh Sullivan - Last Filed: 08/01/18 08:06> ROS Other: All systems not noted in ROS Statement are negative. <Tony Hyde - Last Filed: 08/01/18 09:04> ROS Statement: Those systems with pertinent positive or pertinent negative responses have been documented in the HPI. 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 MTHFR GENE. STUCCO KERATOSIS, past fxs of L foot and R ankle, sciatic problems, diverticulitis, hypothyroid History of Any Multi-Drug Resistant Organisms: None Reported Past Surgical History: Section, Cholecystectomy, Heart Catheterization , Orthopedic Surgery Additional Past Surgical History / Comment(s): RT ANKLE- PLATE & SCREWS, COLONOSCOPIES, EGDs, Bronchial Thermoplasty X3., MINH CATARACTS with lens implants. DEVIATED SEPTUM SURGERY. MULTIPLE BRONCHOSCOPIES, [facility] PROCEDURES, pt on bactrim for URI 07/31/18 Past Anesthesia/Blood Transfusion Reactions: No Reported Reaction Additional Past Anesthesia/Blood Transfusion Reaction / Comment(s): Pt has never received blood. DAUGHTER PONV Past Psychological History: No Psychological Hx Reported Smoking Status: Former smoker Past Alcohol Use History: None Reported Past Drug Use History: None Reported - Past Family History Father Family Medical History: Cancer Additional Family Medical History / Comment(s): colon Mother Family Medical History: Congestive Heart Failure (CHF) Additional Family Medical History / Comment(s): emphysema Daughter(s) Family Medical History: Deep Vein Thrombosis (DVT) <LaurieHitesh Filed: 08/01/18 08:06> General Exam Limitations: no limitations General appearance: alert, in no apparent distress, obese Head exam: Present: atraumatic, normocephalic Eye exam: Present: normal appearance. Absent: scleral icterus, conjunctival injection Respiratory exam: Present: wheezes. Absent: respiratory distress, rales, rhonchi, chest wall tenderness, accessory muscle use, decreased breath sounds, prolonged expiratory Cardiovascular Exam: Present: regular rate, normal rhythm, normal heart sounds. Absent: systolic murmur, diastolic murmur, rubs, gallop GI/Abdominal exam: Present: soft. Absent: distended, tenderness, guarding, rebound, rigid Extremities exam: Present: normal inspection, normal capillary refill. Absent: pedal edema, calf tenderness Back exam: Present: normal inspection Skin exam: Present: warm, dry, intact, normal color. Absent: rash <LaurieHitesh Filed: 08/01/18 08:06> Vital Signs 08/01/18 08/01/18 08/01/18 05:01 05:25 07:28 Temperature 98.8 F Pulse Rate 94 85 Respiratory 22 18 18 Rate Blood Pressure 130/68 115/90 O2 Sat by Pulse 97 97 Oximetry 08/01/18 08/01/18 08:29 08:39 Temperature Pulse Rate 81 80 Respiratory Rate Blood Pressure O2 Sat by Pulse Oximetry Medical Decision Making - Lab Data Result diagrams: 08/01/18 06:01 08/01/18 06:01 - EKG Data -: EKG Interpreted by Pr EKG shows normal: sinus rhythm, axis (Normal), intervals (Normal), QRS complexes (LVH) Interpretation: nonspecific ST-T wave changes, LVH <LaurieHitesh Filed: 08/01/18 08:06> - Lab Data Result diagrams: 08/01/18 06:01 08/01/18 06:01 - Radiology Data Radiology results: image reviewed (Chest x-ray shows no acute process) <Tony Hyde - Last Filed: 08/01/18 09:04> - Medical Decision Making Patient reevaluated by myself, Dr. Hyde. Patient has mild extremity wheeze. Patient states she feels comfortable with her breathing at this point and is comfortable with discharge. Patient is receptive to steroid use and is familiar with this. Patient will be provided IV days of steroid and will immediately start her Solu-Cortef on the day following. (Tony Hyde) - Lab Data Lab Results 08/01/18 08/01/18 08/01/18 Range/Units 06:01 06:01 06:01 WBC 8.0 (3.8-10.6) k/uL RBC 4.61 (3.80-5.40) m/uL Hgb 13.9 (11.4-16.0) gm/dL Hct 43.7 (34.0-46.0) % MCV 94.8 (80.0-100.0) fL MCH 30.2 (25.0-35.0) pg MCHC 31.9 (31.0-37.0) g/dL RDW 13.8 (11.5-15.5) % Plt Count 253 (150-450) k/uL Neutrophils % 62 % Lymphocytes % 23 % Monocytes % 8 % Eosinophils % 2 % Basophils % 1 % Neutrophils # 5.0 (1.3-7.7) k/uL Lymphocytes # 1.9 (1.0-4.8) k/uL Monocytes # 0.6 (0-1.0) k/uL Eosinophils # 0.2 (0-0.7) k/uL Basophils # 0.0 (0-0.2) k/uL PT (9.0-12.0) sec INR (<1.2) APTT (22.0-30.0) sec D-Dimer (<0.60) mg/L FEU Sodium 140 (137-145) mmol/L Potassium 4.8 (3.5-5.1) mmol/L Chloride 112 H (98-107) mmol/L Carbon Dioxide 22 (22-30) mmol/L Anion Gap 6 mmol/L BUN 20 H (7-17) mg/dL Creatinine 0.75 (0.52-1.04) mg/dL Est GFR (CKD-EPI)AfAm >90 (>60 ml/min/1.73 sqM) Est GFR (CKD-EPI)NonAf 82 (>60 ml/min/1.73 sqM) Glucose 91 (74-99) mg/dL Calcium 8.9 (8.4-10.2) mg/dL Total Bilirubin 0.8 (0.2-1.3) mg/dL AST 30 (14-36) U/L ALT 44 (9-52) U/L Alkaline Phosphatase 44 (38-126) U/L Total Creatine Kinase 162 H (30-135) U/L CK-MB (CK-2) 1.0 (0.0-2.4) ng/mL CK-MB (CK-2) Rel Index 0.6 Troponin I <0.012 (0.000-0.034) ng/mL Total Protein 6.7 (6.3-8.2) g/dL Albumin 3.8 (3.5-5.0) g/dL 08/01/18 Range/Units 06:01 WBC (3.8-10.6) k/uL RBC (3.80-5.40) m/uL Hgb (11.4-16.0) gm/dL Hct (34.0-46.0) % MCV (80.0-100.0) fL MCH (25.0-35.0) pg MCHC (31.0-37.0) g/dL RDW (11.5-15.5) % Plt Count (150-450) k/uL Neutrophils % % Lymphocytes % % Monocytes % % Eosinophils % % Basophils % % Neutrophils # (1.3-7.7) k/uL Lymphocytes # (1.0-4.8) k/uL Monocytes # (0-1.0) k/uL Eosinophils # (0-0.7) k/uL Basophils # (0-0.2) k/uL PT 10.1 (9.0-12.0) sec INR 1.0 (<1.2) APTT 23.4 (22.0-30.0) sec D-Dimer 0.25 (<0.60) mg/L FEU Sodium (137-145) mmol/L Potassium (3.5-5.1) mmol/L Chloride (98-107) mmol/L Carbon Dioxide (22-30) mmol/L Anion Gap mmol/L BUN (7-17) mg/dL Creatinine (0.52-1.04) mg/dL Est GFR (CKD-EPI)AfAm (>60 ml/min/1.73 sqM) Est GFR (CKD-EPI)NonAf (>60 ml/min/1.73 sqM) Glucose (74-99) mg/dL Calcium (8.4-10.2) mg/dL Total Bilirubin (0.2-1.3) mg/dL AST (14-36) U/L ALT (9-52) U/L Alkaline Phosphatase (38-126) U/L Total Creatine Kinase (30-135) U/L CK-MB (CK-2) (0.0-2.4) ng/mL CK-MB (CK-2) Rel Index Troponin I (0.000-0.034) ng/mL Total Protein (6.3-8.2) g/dL Albumin (3.5-5.0) g/dL Disposition Is patient prescribed a controlled substance at d/c from ED?: No <Hitesh Sullivan - Last Filed: 08/01/18 08:06> Time of Disposition: 09:03 <Tony Hyde - Last Filed: 08/01/18 09:04> Clinical Impression: Asthma Disposition: HOME SELF-CARE Condition: Fair Instructions: Asthma (ED) Prescriptions: predniSONE 60 mg PO DAILY #30 tab Referrals: Karli Wallace MD [Primary Care Provider] - 1-2 days
[2018-08-01] MEDS ORDERED: IPRATROPIUM 0.5 MG/2.5 ML NEBU INHALATION STA (08:26)
[2018-08-01 09:17] VITALS: BP 116/74; PULSE 85
== END 2018-08-01 09:16 | disposition home or self-care (01) ==
LOC: EC 04:58
DX: J45.909 Unspecified asthma, uncomplicated (principal); E78.5 Hyperlipidemia, unspecified; E03.9 Hypothyroidism, unspecified; Z87.891 Personal history of nicotine dependence; Z88.0 Allergy status to penicillin; Z88.1 Allergy status to other antibiotic agents; Z88.6 Allergy status to analgesic agent; Z91.018 Allergy to other foods; Z79.01 Long term (current) use of anticoagulants; Z79.51 Long term (current) use of inhaled steroids; Z79.52 Long term (current) use of systemic steroids; Z79.899 Other long term (current) drug therapy; Z86.711 Personal history of pulmonary embolism; Z87.01 Personal history of pneumonia (recurrent); Z87.19 Personal history of other diseases of the digestive system; Z82.5 Family history of asthma and other chronic lower respiratory diseases; Z98.890 Other specified postprocedural states
CPT/HCPCS: 36415; 94640; 93005; 85379; 80053; 82550; 82553; 84484; 85025; 85610; 85730; 71046; 99285; 96374; J2930

== ENCOUNTER → 2018-08-19 | Outpatient (CLI) | payer MEDICARE, BC ==
[2018-08-19 13:08] VITALS: BP 127/85; PULSE 65; RESP 18; TEMP 98.1
--- NOTE | 2018-08-19 14:24 | P.PN ---
Subjective Progress Note Date: 08/19/18 This is follow-up visit for this patient with a history of severe and chronic low back pain secondary to lumbar degenerative disc disease, lumbar facet arthropathy, We have done an interventional pain procedure radiofrequency ablation of medial branch lumbar area( done january 2018 ), and that helped her low back pain, but she continue to have radicular symptoms And recently we have done lumbar epidural steroid injections, which helped her radicular symptoms, she is wheelchair bound, The patient currently on Percocet 7.5/325 once a day and Neurontin 400 mg twice a day ( she is using Xeralto because of PE ) Patient denies any side effect of the medication , patient denies any excessive drowsiness or sleepiness, patient denies any suicidal ideation, Patient reported that the current medication is helping to control the pain and improve the activity of daily livings, Patient denies any motor or sensory deficit, denies any change in the bowel movement or urination, patient denies any fever or night sweats. Patient here today for follow-up visit and medication refill Physical Examinations : 1-Constitutiona : Cooperative , not in acute distress . 2-HEENT : nech ; supple , no Lymphadenopathy , normal thyroid size . eyes : no ptosis , no icterus , no photophobia . ENT : normal of hearing , normal oropharynx , no Thrush . 3- Respiratory : Chest clear to auscultations Bilaterally , no wheezing , no Rhonchi . 4- Cardiovascular : regular rate and rhythem , S1 , S2 , no S3 , no S4. 5- Gastrointestinal : abdomen soft no tenderness , bowel sounds , no organomegally . 6- Genitourinary : Defferred . 7- neurologic : Cranial nerve II to XII intact , no focal neurological deffecit . 8-psychatric : alert , oriented X 3 , appropriate affect , intact judgment and insight . 9-Lymphatic : no Lymphadenopathy . 10- musculoskeltal : Lumber spine moter stegnth lower extremities ,thigh and legs 3-4/5 Right side , 3-4/5 Left side deep tendon reflexes : normal Knee Jerk , normal ankle Jerk positive lumber facet Loading Test Range of motion of the lumbar spine Flexion 30 degrees, extension 10 degrees strait leg raising test , positive at 30 degree Fabere test positive RT and positive LT . Assessment and plan= chronic low back pain secondary to lumbar degenerative disc disease , lumbar spondylosis with lumbar facet arthropathy . chronic and current use of high-risk medication (opioids) Patient denies any side effects of the current pain medication and the current treatment/medication helping the patient to do activity of daily living , Diagnoses, prognosis, treatment options, including but not limited to physical therapy, medication management, interventional therapies, and surgery, were discussed with the patient All the questions answered The narcotic consent was signed and patient agreed and understood the side effects and complications of opioid treatment. Patient signed the narcotic agreement, and was orally counseled, not to overuse, not to abuse, not to Divert , not tp sell pain medication, and to take it as prescribed only, Patient was counseled not to drive or operate heavy equipment while using narcotic medication, and advised not to use alcohol or any Illicit drugs while using the narcotis, understanding that lack of compliance with any of the above instructions, will likely to cause discharge from, the pain service, not to renew his narcotic prescriptions [facility] Reviwed and it was apropriate . Medication managements= patient will be given prescription refills for Percocet 7.5/325 dispense 30 with one refill, Neurontin 400 mg twice a day dispense 60 with 1 refills. , PQRS Measure Charge Sheet Measure #130: Documentation of Current Meds in Medical Chart: Patient's medications documented in chart Measure #226: Tobacco Use: Screen & Cessation Intervention: Pt not a tobacco user Measure #111: Pneumonia Vaccination: Pneumococcal vaccine administered or previously received Measure #47: Advance Care Plan: Advance care planning discussed & documented, pt chose/unable to give Measure #412: Opioid Treatment Agreement: Documented signed opioid trtmnt agreemnt min once during opioid trtmnt Measure #408: Opioid Therapy Follow-up Evaluation: Patient had f/u eval minimum every 3 months during opioid therapy Measure #317: Preventitive Care & Scrn High Bld Press & F/U: Normal blood pressure, f/u not required Measure #128: Body Mass Index (BMI) Screening & Follow-up: BMI documented ABOVE normal parameters - f/u documented Measure #131: Pain Assessment & Follow-up: Pain positive & plan documented, Follow-up scheduled Measure #431: Unhealthy Alcohol Use Preventative Care & Scrn: Patient not identified as an unhealthy alcohol user PQRS Narrative: Objective - Vital Signs Vital signs: Vital Signs Temp 98.1 F 08/19/18 12:59 Pulse 65 08/19/18 12:59 Resp 18 08/19/18 12:59 BP 127/85 08/19/18 12:59 Pulse Ox 96 08/19/18 12:59 Intake & Output 08/18/18 08/19/18 08/19/18 18:59 06:59 18:59 Weight 106.141 kg
== END | disposition home or self-care (01) ==
LOC: PNWHC3 12:48
PROVIDERS: ATTEND Specialist
DX: G89.29 Other chronic pain (principal); M54.5 Low back pain; M51.36 Other intervertebral disc degeneration, lumbar region; M47.816 Spondylosis without myelopathy or radiculopathy, lumbar region; M46.86 Other specified inflammatory spondylopathies, lumbar region; Z99.3 Dependence on wheelchair; Z79.891 Long term (current) use of opiate analgesic; Z79.899 Other long term (current) drug therapy
CPT/HCPCS: 99211

== ENCOUNTER → 2018-08-27 | Outpatient (CLI) | payer MEDICARE, BC ==
--- NOTE | 2018-08-27 10:57 | US ---
EXAMINATION TYPE: US venous doppler duplex LE LT DATE OF EXAM: 08/27/2018 10:37 AM COMPARISON: NONE CLINICAL HISTORY: 68-year-old female left lower ext, Edema R09.89 R60.0. Called left foot, h/o PE a c ouple years ago and still on thinners, no h/o DVT SIDE PERFORMED: Left TECHNIQUE: The left lower extremity deep venous system is examined utilizing real time linear array sonography with graded compression, doppler sonography and color-flow sonography. FINDINGS: VESSELS IMAGED: External Iliac Vein (EIV) Common Femoral Vein Deep Femoral Vein Greater Saphenous Vein * Femoral Vein Popliteal Vein Small Saphenous Vein * Proximal Calf Veins (* superficial vessels) Left Leg: Appears negative for DVT tech impression relayed to receptionist doctor's office at office @ 10:34 IMPRESSION: No evidence for DVT within the left lower extremity imaged from the groin to the upper calf.
== END | disposition home or self-care (01) ==
LOC: RADUSWWP 08:44
PROVIDERS: ATTEND Physician Assistant
DX: R60.0 Localized edema (principal)

== ENCOUNTER → 2018-09-04 | Outpatient (CLI) | payer MEDICARE, BC ==
--- NOTE | 2018-09-10 12:45 | P.ARTDOP ---
Arterial Doppler LOWER EXTREMITY ARTERIAL DOPPLER: DATE OF SERVICE: 09/04/2018 Reason for study:: Left foot. Doppler waveforms: Multiphasic bilaterally throughout. Pulse volume recording: Normal configuration. Pressure gradients: None of significance. Ankle-brachial indices: Greater than 1 bilaterally. Toe pressures: 85 on the right, 76 on the left Impression: Essentially normal study.
== END ==
LOC: RADUSWWP 10:03
PROVIDERS: ATTEND Physician Assistant
DX: R20.8 Other disturbances of skin sensation (principal)
CPT/HCPCS: 93922

== ENCOUNTER 2018-10-14 14:16 | Emergency (ER) | payer MEDICARE, BC ==
[2018-10-14 14:21] VITALS: RESP 18
[2018-10-14] MEDS ORDERED: SODIUM CHLORIDE 0.9% 500 ML 500 ML IV STA (14:40)
--- NOTE | 2018-10-14 15:29 | ED ---
General Adult HPI - General Chief complaint: Recheck/Abnormal Lab/Rx Stated complaint: High BP Time Seen by Provider: 10/14/18 14:28 Source: patient, RN notes reviewed, old records reviewed Mode of arrival: wheelchair Limitations: no limitations - History of Present Illness Initial comments: Patient is a 60-year-old female who presents for his rheumatoid today with complaints of elevated blood pressure was she was at her outpatient pain management appointment. Patient reports she was getting a refill of her pain medication for chronic back pain. We took her blood pressure was elevated 160/ 95. She states he rechecked it again and was 180/100. On the third recheck it was undetectable. She was sent in for evaluation. She states that she has "chronic chest pain". From her COPD and asthma. She does state she has a chronic wheezing. She uses inhalers. She denies any associated shortness of breath. She denies any associated headache. She states she's had normal urine output. Patient reports that she has seen a customer account coordinator in the past. - Related Data Home Medications Medication Instructions Recorded Confirmed Fluticasone Propionate [Flovent 2 puff INHALATION RT-BID 10/19/14 10/14/18 Hfa 220MCG] Furosemide [Lasix] 20 mg PO DAILY PRN 10/19/14 10/14/18 Salmeterol Xinafoate [Serevent 1 puff INHALATION RT-BID 10/19/14 10/14/18 Diskus] Albuterol Inhaler [Ventolin Hfa 2 puff INHALATION RT-Q6H PRN 11/05/14 10/14/18 Inhaler] Calcium Carbonate/Vitamin D3 1 tab PO BID 06/25/15 10/14/18 [Calcium 600-Vit D3 400 Tablet] Cetirizine HCl [Zyrtec] 10 mg PO DAILY 01/27/16 10/14/18 Esomeprazole Magnesium [NexIUM] 40 mg PO DAILY 04/05/16 10/14/18 Multivitamin [Multivitamins Adult 1 tab PO DAILY 05/07/16 10/14/18 Gummies] Azithromycin [Zithromax] 250 mg PO MOWEFR 08/08/16 10/14/18 Vit C/E/Zn/Coppr/Lutein/Zeaxan 1 cap PO BID 01/09/17 10/14/18 [Preservision Areds 2 Softgel] Ubidecarenone [Co Q-10] 200 mg PO HS 02/24/17 10/14/18 Multivit-Min/Iron/Folic/Btc604 2 tab PO DAILY@1200 03/31/17 10/14/18 [Hair, Skin and Nails Tablet] Rivaroxaban [Xarelto] 10 mg PO DAILY 08/27/17 10/14/18 Denosumab [Prolia] 60 mg SQ Q180D 12/13/17 10/14/18 Aspirin/Acetaminophen/Caffeine 2 tab PO DAILY PRN 05/28/18 10/14/18 [Excedrin Migraine Caplet] Ipratropium-Albuterol Nebulize 3 ml INHALATION RT-QID PRN 05/28/18 10/14/18 [Duoneb 0.5 mg-3 mg/3 ml Soln] Benzonatate [Tessalon Perles] 100 mg PO TID PRN 06/27/18 10/14/18 Cholecalciferol [Vitamin D3] 1,000 unit PO DAILY 06/27/18 10/14/18 Dulcoease 100 mg PO DAILY PRN 06/27/18 10/14/18 Levothyroxine Sodium [Synthroid] 112 mcg PO DAILY 06/27/18 10/14/18 Magnesium Gluconate [Magonate] 500 mg PO DAILY 06/27/18 10/14/18 Rosuvastatin Calcium [Crestor] 5 mg PO DAILY 06/27/18 10/14/18 Vitamin C Gummies 250 mg PO BID 06/27/18 10/14/18 Hydrocortisone [Cortef] 5 mg PO HS 10/14/18 10/14/18 Hydrocortisone [Cortef] 15 mg PO QAM 10/14/18 10/14/18 Metoprolol Succinate (ER) [Toprol 25 mg PO DAILY 10/14/18 10/14/18 Xl] Previous Rx's Medication Instructions Recorded Gabapentin [Neurontin] 400 mg PO BID #60 cap 08/19/18 oxyCODONE-APAP 7.5-325MG [Percocet 1 tab PO DAILY PRN 30 Days #30 tab 08/19/18 7.5-325 mg] Allergies Allergy/AdvReac Type Severity Reaction Status Date / Time cefuroxime axetil Allergy Dyspnea Verified 10/14/18 15:47 [From Ceftin] moxifloxacin HCl Allergy Dyspnea Verified 10/14/18 15:47 [From Avelox] Penicillins Allergy Dyspnea Verified 10/14/18 15:47 rofecoxib [From Vioxx] Allergy Dyspnea Verified 10/14/18 15:47 blackberry Allergy Rash/Hives Uncoded 10/14/18 14:21 Review of Systems ROS Statement: Those systems with pertinent positive or pertinent negative responses have been documented in the HPI. ROS Other: All systems not noted in ROS Statement are negative. 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 MTHFR GENE. STUCCO KERATOSIS, past fxs of L foot and R ankle, sciatic problems, diverticulitis, hypothyroid History of Any Multi-Drug Resistant Organisms: None Reported Past Surgical History: Section, Cholecystectomy, Heart Catheterization , Orthopedic Surgery Additional Past Surgical History / Comment(s): RT ANKLE- PLATE & SCREWS, COLONOSCOPIES, EGDs, Bronchial Thermoplasty X3., KENDALL CATARACTS with lens implants. DEVIATED SEPTUM SURGERY. MULTIPLE BRONCHOSCOPIES, [facility] PAIN CLINIC PROCEDURES, pt on bactrim for URI 07/31/18 Past Anesthesia/Blood Transfusion Reactions: No Reported Reaction Additional Past Anesthesia/Blood Transfusion Reaction / Comment(s): Pt has never received blood. DAUGHTER PONV Past Psychological History: No Psychological Hx Reported Smoking Status: Former smoker Past Alcohol Use History: None Reported Past Drug Use History: None Reported - Past Family History Father Family Medical History: Cancer Additional Family Medical History / Comment(s): colon Mother Family Medical History: Congestive Heart Failure (CHF) Additional Family Medical History / Comment(s): emphysema Daughter(s) Family Medical History: Deep Vein Thrombosis (DVT) General Exam - General Exam Comments Initial Comments: 60-year-old female. Alert and oriented. No distress. Limitations: no limitations General appearance: alert, in no apparent distress Head exam: Present: atraumatic, normocephalic, normal inspection Eye exam: Present: normal appearance, PERRL, EOMI. Absent: scleral icterus, conjunctival injection, periorbital swelling ENT exam: Present: normal exam, mucous membranes moist Neck exam: Present: normal inspection. Absent: tenderness, meningismus, lymphadenopathy Respiratory exam: Present: normal lung sounds bilaterally. Absent: respiratory distress, wheezes, rales, rhonchi, stridor Cardiovascular Exam: Present: regular rate, normal rhythm, normal heart sounds. Absent: systolic murmur, diastolic murmur, rubs, gallop, clicks GI/Abdominal exam: Present: soft, normal bowel sounds. Absent: distended, tenderness, guarding, rebound, rigid Extremities exam: Present: normal inspection Back exam: Present: normal inspection Neurological exam: Present: alert, oriented X3, CN II-XII intact Psychiatric exam: Present: normal affect, normal mood Skin exam: Present: warm, dry, intact, normal color. Absent: rash Course Vital Signs 10/14/18 10/14/18 10/14/18 12:51 14:18 15:20 Temperature 98.3 F Pulse Rate 91 96 Respiratory 16 18 Rate Blood Pressure 186/101 166/95 141/73 O2 Sat by Pulse 94 L 99 Oximetry EKG Findings - EKG Comments: EKG Findings:: EKG performed at 1500 shows normal sinus rhythm with a stretcher for LVH. Nonspecific ST-T wave and around. Abnormal EKG. Jacoya 90 bpm. Intervals 1:30 milliseconds. QS cheondoism 72 ms. QT QTc is 388/473 ms. Medical Decision Making - Medical Decision Making Patient is a 68-year-old female presents today with elevated blood pressure. Patient was getting her pain meds filled that outpatient pain clinic. Patient blood pressure continued to be elevated while being evaluated there. She came here for treatment. Blood pressure came down without intervention 144/78. Patient did state that she has some chronic chest pain related to her bronchitis. Chest x-ray shows some developing atelectasis versus infiltrate. Complete Patient has infiltrate due to no fever or white blood cell count. No back clinically concern for pneumonia. Patient otherwise appears well. No neurological deficits. Bone was reviewed and negative for any acute process. EKG shows no acute changes. I discussed case with Dr. Segura. Low-grade Patient can follow-up with her primary care provider in regards to her blood pressure rechecking at home. Discussed that she should return if there is any symptoms including developed chest pain or any other complaints. Patient agrees to treatment plan will comply. Return parameters were discussed. - Lab Data Result diagrams: 10/14/18 15:00 10/14/18 15:00 Lab Results 10/14/18 10/14/18 10/14/18 Range/Units 15:00 15:00 15:00 WBC 9.0 (3.8-10.6) k/uL RBC 4.63 (3.80-5.40) m/uL Hgb 14.2 (11.4-16.0) gm/dL Hct 44.3 (34.0-46.0) % MCV 95.7 (80.0-100.0) fL MCH 30.7 (25.0-35.0) pg MCHC 32.1 (31.0-37.0) g/dL RDW 13.5 (11.5-15.5) % Plt Count 214 (150-450) k/uL Neutrophils % 73 % Lymphocytes % 16 % Monocytes % 6 % Eosinophils % 2 % Basophils % 1 % Neutrophils # 6.6 (1.3-7.7) k/uL Lymphocytes # 1.4 (1.0-4.8) k/uL Monocytes # 0.5 (0-1.0) k/uL Eosinophils # 0.2 (0-0.7) k/uL Basophils # 0.0 (0-0.2) k/uL PT (9.0-12.0) sec INR (<1.2) APTT (22.0-30.0) sec Sodium 142 (137-145) mmol/L Potassium 4.7 (3.5-5.1) mmol/L Chloride 109 H (98-107) mmol/L Carbon Dioxide 27 (22-30) mmol/L Anion Gap 6 mmol/L BUN 22 H (7-17) mg/dL Creatinine 0.68 (0.52-1.04) mg/dL Est GFR (CKD-EPI)AfAm >90 (>60 ml/min/1.73 sqM) Est GFR (CKD-EPI)NonAf >90 (>60 ml/min/1.73 sqM) Glucose 97 (74-99) mg/dL Calcium 9.4 (8.4-10.2) mg/dL Magnesium 2.3 (1.6-2.3) mg/dL Total Bilirubin 1.5 H (0.2-1.3) mg/dL AST 31 (14-36) U/L ALT 28 (9-52) U/L Alkaline Phosphatase 52 (38-126) U/L Total Creatine Kinase 187 H (30-135) U/L CK-MB (CK-2) 0.9 (0.0-2.4) ng/mL CK-MB (CK-2) Rel Index 0.5 Troponin I <0.012 (0.000-0.034) ng/mL Total Protein 6.8 (6.3-8.2) g/dL Albumin 4.2 (3.5-5.0) g/dL Urine Color Urine Appearance (Clear) Urine pH (5.0-8.0) Ur Specific [place] (1.001-1.035) Urine Protein (Negative) Urine Glucose (UA) (Negative) Urine Ketones (Negative) Urine Blood (Negative) Urine Nitrite (Negative) Urine Bilirubin (Negative) Urine Urobilinogen (<2.0) mg/dL Ur Leukocyte Esterase (Negative) Urine RBC (0-5) /hpf Urine WBC (0-5) /hpf Ur Squamous Epith Cells (0-4) /hpf Urine Mucus (None) /hpf 10/14/18 10/14/18 Range/Units 15:00 15:35 WBC (3.8-10.6) k/uL RBC (3.80-5.40) m/uL Hgb (11.4-16.0) gm/dL Hct (34.0-46.0) % MCV (80.0-100.0) fL MCH (25.0-35.0) pg MCHC (31.0-37.0) g/dL RDW (11.5-15.5) % Plt Count (150-450) k/uL Neutrophils % % Lymphocytes % % Monocytes % % Eosinophils % % Basophils % % Neutrophils # (1.3-7.7) k/uL Lymphocytes # (1.0-4.8) k/uL Monocytes # (0-1.0) k/uL Eosinophils # (0-0.7) k/uL Basophils # (0-0.2) k/uL PT 11.4 (9.0-12.0) sec INR 1.1 (<1.2) APTT 27.5 (22.0-30.0) sec Sodium (137-145) mmol/L Potassium (3.5-5.1) mmol/L Chloride (98-107) mmol/L Carbon Dioxide (22-30) mmol/L Anion Gap mmol/L BUN (7-17) mg/dL Creatinine (0.52-1.04) mg/dL Est GFR (CKD-EPI)AfAm (>60 ml/min/1.73 sqM) Est GFR (CKD-EPI)NonAf (>60 ml/min/1.73 sqM) Glucose (74-99) mg/dL Calcium (8.4-10.2) mg/dL Magnesium (1.6-2.3) mg/dL Total Bilirubin (0.2-1.3) mg/dL AST (14-36) U/L ALT (9-52) U/L Alkaline Phosphatase (38-126) U/L Total Creatine Kinase (30-135) U/L CK-MB (CK-2) (0.0-2.4) ng/mL CK-MB (CK-2) Rel Index Troponin I (0.000-0.034) ng/mL Total Protein (6.3-8.2) g/dL Albumin (3.5-5.0) g/dL Urine Color Light Yellow Urine Appearance Clear (Clear) Urine pH 6.0 (5.0-8.0) Ur Specific [place] 1.013 (1.001-1.035) Urine Protein Negative (Negative) Urine Glucose (UA) Negative (Negative) Urine Ketones Negative (Negative) Urine Blood Negative (Negative) Urine Nitrite Negative (Negative) Urine Bilirubin Negative (Negative) Urine Urobilinogen <2.0 (<2.0) mg/dL Ur Leukocyte Esterase Moderate H (Negative) Urine RBC <1 (0-5) /hpf Urine WBC 6 H (0-5) /hpf Ur Squamous Epith Cells 1 (0-4) /hpf Urine Mucus Rare H (None) /hpf - Radiology Data Radiology results: report reviewed Chest x-ray shows hypoventilatory chronic changes. Borderline heart size. Patchy posterior basilar atelectasis or early infiltrate on lateral view. Disposition Clinical Impression: Hypertension Disposition: HOME SELF-CARE Condition: Good Instructions: Hypertension (ED) Additional Instructions: Patient advised follow-up with primary care physician. Return to the emergency department if any alarming signs or symptoms occur. Monitor blood pressure, with at-home blood pressure cuff that he may purchase. Also recommend drink plenty of fluids and resting. Is patient prescribed a controlled substance at d/c from ED?: No Referrals: Kacey Pelayo MD [Primary Care Provider] - 1-2 days Time of Disposition: 16:23
[2018-10-14 15:36] LABS: Basophils % (A) 1 %; Eosinophils # (A) 0.2 k/uL (0-0.7); Eosinophils % (A) 2 %; HCT 44.3 % (34.0-46.0); HGB 14.2 gm/dL (11.4-16.0); Lymphocytes # (A) 1.4 k/uL (1.0-4.8); Lymphocytes % (A) 16 %; MCH 30.7 pg (25.0-35.0); MCHC 32.1 g/dL (31.0-37.0); MCV 95.7 fL (80.0-100.0); Monocytes # (A) 0.5 k/uL (0-1.0); Monocytes % (A) 6 %; Neutrophils # (A) 6.6 k/uL (1.3-7.7); Neutrophils % (A) 73 %; Platelet Count 214 k/uL (150-450); RBC 4.63 m/uL (3.80-5.40); RDW 13.5 % (11.5-15.5)
[2018-10-14 15:44] LABS: INR 1.1 (<1.2); Partial Thromboplastin Time 27.5 sec (22.0-30.0); Prothrombin Time 11.4 sec (9.0-12.0)
[2018-10-14 15:51] LABS: ALT 28 U/L (9-52); AST 31 U/L (14-36); Albumin 4.2 g/dL (3.5-5.0); Alkaline Phosphatase 52 U/L (38-126); Anion Gap 6 mmol/L; Blood Urea Nitrogen 22 mg/dL (7-17); Calcium 9.4 mg/dL (8.4-10.2); Carbon Dioxide 27 mmol/L (22-30); Chloride 109 mmol/L (98-107); Glucose 97 mg/dL (74-99); Magnesium 2.3 mg/dL (1.6-2.3); Potassium 4.7 mmol/L (3.5-5.1); Sodium 142 mmol/L (137-145); Total Bilirubin 1.5 mg/dL (0.2-1.3); Total Protein 6.8 g/dL (6.3-8.2)
[2018-10-14 15:56] LABS: Creatine Kinase 187 U/L (30-135)
--- NOTE | 2018-10-14 15:58 | XR ---
EXAMINATION TYPE: XR chest 2V DATE OF EXAM: 10/14/2018 COMPARISON: 08/01/2018 HISTORY: 68-year-old female with chest pain TECHNIQUE: PA and lateral views FINDINGS: Low lung volumes and crowded vascular markings. Bowel interstitial prominence is unchanged. Heart bor derline in size. There is some patchy posterior basilar opacity on the lateral view. No sizable effus ion. IMPRESSION: Hypoventilatory and chronic changes. Borderline heart size. Patchy posterior basilar atelectasis or e xander infiltrate on the lateral view.
[2018-10-14 15:59] LABS: Appearance,Urine Clear (Clear); Bilirubin,Urine Negative (Negative); Blood,Urine Negative (Negative); Color,Urine Light Yellow; Glucose,Urine (UA) Negative (Negative); Ketones,Urine Negative (Negative); Leukocyte Esterase,Urine Moderate (Negative); Mucus,Urine Rare /hpf; Nitrite,Urine Negative (Negative); Protein,Urine Negative (Negative); RBC,Urine <1 /hpf (0-5); Specific Gravity,Urine 1.013 (1.001-1.035); Squamous Epithelial Cell,Urine 1 /hpf (0-4); Urobilinogen,Urine <2.0 mg/dL (<2.0); WBC,Urine 6 /hpf (0-5)
[2018-10-14 16:09] LABS: Creatine Kinase MB 0.9 ng/mL (0.0-2.4); Troponin I <0.012 ng/mL (0.000-0.034)
[2018-10-14 16:43] VITALS: BP 141/74; PULSE 92; TEMP 98.2
--- NOTE | 2018-10-15 21:06 | P.PN ---
Subjective Progress Note Date: 10/14/18 This is follow-up visit for this patient with a history of severe and chronic low back pain secondary to lumbar degenerative disc disease, lumbar facet arthropathy, We have done an interventional pain procedure radiofrequency ablation of medial branch lumbar area( done january 2018 ), and that helped her low back pain, but she continue to have radicular symptoms , she is complaining of frequent episodes of muscle spasm in the lower extremities especially at night And recently we have done lumbar epidural steroid injections, which helped her radicular symptoms, she is wheelchair bound, The patient currently on Percocet 7.5/325 once a day and Neurontin 400 mg twice a day ( she is using Xeralto because of PE ) , she does not that she is getting any benefit from Neurontin Patient denies any side effect of the medication , patient denies any excessive drowsiness or sleepiness, patient denies any suicidal ideation, Patient reported that the current medication is helping to control the pain and improve the activity of daily livings, Patient denies any motor or sensory deficit, denies any change in the bowel movement or urination, patient denies any fever or night sweats. Patient here today for follow-up visit and medication refill Physical Examinations : 1-Constitutiona : Cooperative , not in acute distress . 2-HEENT : nech ; supple , no Lymphadenopathy , normal thyroid size . eyes : no ptosis , no icterus , no photophobia . ENT : normal of hearing , normal oropharynx , no Thrush . 3- Respiratory : Chest clear to auscultations Bilaterally , no wheezing , no Rhonchi . 4- Cardiovascular : regular rate and rhythem , S1 , S2 , no S3 , no S4. 5- Gastrointestinal : abdomen soft no tenderness , bowel sounds , no organomegally . 6- Genitourinary : Defferred . 7- neurologic : Cranial nerve II to XII intact , no focal neurological deffecit . 8-psychatric : alert , oriented X 3 , appropriate affect , intact judgment and insight . 9-Lymphatic : no Lymphadenopathy . 10- musculoskeltal : Lumber spine moter stegnth lower extremities ,thigh and legs 3-4/5 Right side , 3-4/5 Left side deep tendon reflexes : normal Knee Jerk , normal ankle Jerk positive lumber facet Loading Test Range of motion of the lumbar spine Flexion 30 degrees, extension 10 degrees strait leg raising test , positive at 30 degree Fabere test positive RT and positive LT . Assessment and plan= chronic low back pain secondary to lumbar degenerative disc disease , lumbar spondylosis with lumbar facet arthropathy . chronic and current use of high-risk medication (opioids) Patient denies any side effects of the current pain medication and the current treatment/medication helping the patient to do activity of daily living , Diagnoses, prognosis, treatment options, including but not limited to physical therapy, medication management, interventional therapies, and surgery, were discussed with the patient All the questions answered The narcotic consent was signed and patient agreed and understood the side effects and complications of opioid treatment. Patient signed the narcotic agreement, and was orally counseled, not to overuse, not to abuse, not to Divert , not tp sell pain medication, and to take it as prescribed only, Patient was counseled not to drive or operate heavy equipment while using narcotic medication, and advised not to use alcohol or any Illicit drugs while using the narcotis, understanding that lack of compliance with any of the above instructions, will likely to cause discharge from, the pain service, not to renew his narcotic prescriptions [facility] Reviwed and it was apropriate . Medication managements= patient will be given prescription refills for Percocet 7.5/325 dispense 30 with one refill, decrease Neurontin to 300 mg twice a day dispense 60 with 1 refills. In the future we'll try to stop the Neurontin especially patient had no benefit from it Patient given prescription for Zanaflex 4 mg daily at bedtime because patient had muscle spasms especially at night Patient blood pressure is significantly elevated multiple times with tract checked the blood pressure was more than 180/100 and patient was referred to the emergency room for further evaluation regarding her blood pressure , PQRS Measure Charge Sheet Measure #130: Documentation of Current Meds in Medical Chart: Patient's medications documented in chart Measure #226: Tobacco Use: Screen & Cessation Intervention: Pt not a tobacco user Measure #111: Pneumonia Vaccination: Pneumococcal vaccine administered or previously received Measure #47: Advance Care Plan: Advance care planning discussed & documented, pt chose/unable to give Measure #412: Opioid Treatment Agreement: Documented signed opioid trtmnt agreemnt min once during opioid trtmnt Measure #408: Opioid Therapy Follow-up Evaluation: Patient had f/u eval minimum every 3 months during opioid therapy Measure #317: Preventitive Care & Scrn High Bld Press & F/U: Elevated blood pressure, f/u required, patient was referred to the ER Measure #128: Body Mass Index (BMI) Screening & Follow-up: BMI documented ABOVE normal parameters - f/u documented Measure #131: Pain Assessment & Follow-up: Pain positive & plan documented, Follow-up scheduled Measure #431: Unhealthy Alcohol Use Preventative Care & Scrn: Patient not identified as an unhealthy alcohol user PQRS Narrative: Objective - Vital Signs Vital signs: Vital Signs Temp 98.2 F 10/14/18 16:42 Pulse 92 10/14/18 16:42 Resp 18 10/14/18 16:42 BP 141/74 10/14/18 16:42 Pulse Ox 97 10/14/18 16:42 - Labs CBC & Chem 7: 10/14/18 15:00 10/14/18 15:00
== END 2018-10-14 16:42 | disposition home or self-care (01) ==
LOC: EC 14:16
DX: I10 Essential (primary) hypertension (principal); J44.9 Chronic obstructive pulmonary disease, unspecified; M85.80 Other specified disorders of bone density and structure, unspecified site; E03.9 Hypothyroidism, unspecified; Z87.828 Personal history of other (healed) physical injury and trauma; Z87.19 Personal history of other diseases of the digestive system; Z90.49 Acquired absence of other specified parts of digestive tract; Z98.890 Other specified postprocedural states; Z87.891 Personal history of nicotine dependence; Z79.01 Long term (current) use of anticoagulants; Z79.51 Long term (current) use of inhaled steroids; Z79.52 Long term (current) use of systemic steroids; Z79.890 Hormone replacement therapy; Z79.899 Other long term (current) drug therapy; Z88.0 Allergy status to penicillin; Z88.1 Allergy status to other antibiotic agents; Z88.6 Allergy status to analgesic agent; Z91.018 Allergy to other foods
CPT/HCPCS: 36415; 93005; 80053; 82550; 82553; 83735; 84484; 85025; 85610; 85730; 81001; 71046; 99284; 96360; G0463; 99211

== ENCOUNTER → 2018-11-04 | Day surgery (SDC) | payer MEDICARE, BC ==
[2018-10-31 15:15] VITALS: BMI 45.8
[~2018-11-04] MED LIST changes: -ALBUTEROL NEB (CONC) 2.5 MG/0.5 ML INHALATION ONE; -ATROPINE SULFATE 0.4 MG/ML 1 ML VIAL IM ONE; +HYDROmorphone 0.5 MG/0.5 ML SYRINGE IVP PRN; -LACTATED RINGERS 1,000 ML IV ONE; -LIDOCAINE 2% (PF) 20 MG/ML 2 ML AMP INHALATION ONE; +LIDOCAINE HCL/PF 20 MG/ML ML SQ ONE; -LIDOCAINE VISCOUS 2% 15 ML CUP TOPICAL ONE; +MIDAZOLAM 2 MG/2 ML VIAL ONE; +ONDANSETRON 4 MG/2 ML VIAL IVP ONE; +PROPOFOL 10 MG/ML 20 ML VIAL IV ONE; +Pre Op ABX Message 1 EACH MISC MISCELLANE ONE; +ROPIVACAINE 5 MG/ML 30 ML VIAL MISCELLANE ONE; +fentaNYL (PF) 50 MCG/ML 2 ML AMP ONE
[2018-11-04 10:45] VITALS: RESP 18; TEMP 97.8
[2018-11-04 13:09] VITALS: BP 143/60; PULSE 88
--- NOTE | 2018-11-04 14:33 | OP ---
OPERATIVE REPORT DATE OF PROCEDURE: 11/04/2018. PREOPERATIVE DIAGNOSIS: Left carpal tunnel syndrome. POSTOPERATIVE DIAGNOSIS: Left carpal tunnel syndrome. DESCRIPTION OF PROCEDURE: The patient was taken to the Operative Suite where a sedation was administered by the Department of Anesthesia. I then performed a local injection along the line of the incision with a combination of Marcaine and Xylocaine both without epinephrine. The hand was then prepped and draped in the usual manner. The arm was elevated, exsanguinated and the cuff was inflated to 250 mm of mercury. A longitudinal incision was made along the ring finger ray distal to the wrist crease. Dissection was taken through the skin and subcutaneous tissue, initially sharp through the skin and then blunt through the subcutaneous tissue to ensure protection of any potential terminal transverse branches of the palmar cutaneous nerve. The palmar fascia was then incised under direct vision longitudinally exposing the transverse carpal ligament. The transverse carpal ligament also was incised under direct vision. The dissection was then continued proximally beneath the skin under direct vision to release the distal forearm fascia. The median nerve was then reflected free of tenosynovium to ensure no adhesions. The tourniquet was then released. The wound was then irrigated and the skin was closed with a running 5-0 nylon suture. A soft bulky dressing was applied including a volar plaster splint holding the wrist in a neutral slightly extended position. The patient was then taken to the Recovery Room in satisfactory condition. PIETRO / JASWINDERN: [id number] /
== END | disposition home or self-care (01) ==
LOC: OR 09:50
PROVIDERS: ATTEND Orthopaedic Surgery Hand Surgery
DX: G56.03 Carpal tunnel syndrome, bilateral upper limbs (principal); J44.9 Chronic obstructive pulmonary disease, unspecified; E03.9 Hypothyroidism, unspecified; I10 Essential (primary) hypertension; K21.9 Gastro-esophageal reflux disease without esophagitis; G43.909 Migraine, unspecified, not intractable, without status migrainosus; Z79.899 Other long term (current) drug therapy; Z79.51 Long term (current) use of inhaled steroids; Z79.891 Long term (current) use of opiate analgesic; Z88.0 Allergy status to penicillin; Z88.8 Allergy status to other drugs, medicaments and biological substances; Z82.49 Family history of ischemic heart disease and other diseases of the circulatory system; Z87.891 Personal history of nicotine dependence; Z86.711 Personal history of pulmonary embolism; Z79.01 Long term (current) use of anticoagulants; Z88.3 Allergy status to other anti-infective agents
CPT/HCPCS: 64721; J2250; J2405; J3010; J2795; J2704; J2001

== ENCOUNTER → 2018-12-09 | Outpatient (CLI) | payer MEDICARE, BC ==
[2018-12-09 12:30] VITALS: BP 125/79; PULSE 94; RESP 18
--- NOTE | 2018-12-10 10:28 | P.PN ---
Subjective Progress Note Date: 12/09/18 This is follow-up visit for this patient with a history of severe and chronic low back pain secondary to lumbar degenerative disc disease, lumbar facet arthropathy, We have done an interventional pain procedure radiofrequency ablation of medial branch lumbar area( done january 2018 ), and that helped her low back pain, but she continue to have radicular symptoms Currently she is complaining of severe low back pain with radiation to the lower extremity , she feels lower extremity weak, she is wheelchair bound, The patient currently on Percocet 7.5/325 once a day and Neurontin 400 mg twice a day ( she is using Xeralto because of PE ) Patient denies any side effect of the medication , patient denies any excessive drowsiness or sleepiness, patient denies any suicidal ideation, Patient reported that the current medication is helping to control the pain and improve the activity of daily livings, , denies any change in the bowel movement or urination, patient denies any fever or night sweats. Patient here today for follow-up visit and medication refill Physical Examinations : -Constitutiona : Cooperative , not in acute distress . -HEENT : nech ; supple , no Lymphadenopathy , normal thyroid size . eyes : no ptosis , no icterus, no photophobia . -Musculoskeletal Lumber spine moter stegnth lower extremities ,thigh and legs 3-4/5 Right side , 3-4/5 Left side deep tendon reflexes : normal Knee Jerk , normal ankle Jerk positive lumber facet Loading Test Range of motion of the lumbar spine Flexion 30 degrees, extension 10 degrees strait leg raising test , positive at 30 degree Fabere test positive RT and positive LT . Multiple trigger points identified in the lumbar paravertebral muscles Assessment and plan= chronic low back pain secondary to lumbar degenerative disc disease , lumbar spondylosis with lumbar facet arthropathy . Myofascial pain syndrome lumbar area chronic and current use of high-risk medication (opioids) Patient denies any side effects of the current pain medication and the current treatment/medication helping the patient to do activity of daily living , Diagnoses, prognosis, treatment options, including but not limited to physical therapy, medication management, interventional therapies, and surgery, were discussed with the patient All the questions answered The narcotic consent was signed and patient agreed and understood the side effects and complications of opioid treatment. Patient signed the narcotic agreement, and was orally counseled, not to overuse, not to abuse, not to Divert , not tp sell pain medication, and to take it as prescribed only, Patient was counseled not to drive or operate heavy equipment while using narcotic medication, and advised not to use alcohol or any Illicit drugs while using the narcotis, understanding that lack of compliance with any of the above instructions, will likely to cause discharge from, the pain service, not to renew his narcotic prescriptions [facility] Reviwed and it was apropriate . Medication managements= patient will be given prescription refills for Percocet 7.5/325 dispense 30 with one refill, currently using the Neurontin 100 mg twice a day (was decreased from 400 mg twice a day) The patient reported that she felt her pain increased significantly , since we decreased the Neurontin dose, and for this reason I will increase the Neurontin to 200 Bid ( 100 mg 2 tabletes BID ) Patient given prescription for Neurontin 100 mg 2 tablets twice a day dispense 120 , She could benefit from lumbar epidural steroid injections, and trigger point injection lumbar paravertebral muscles, In the future if you continue to have low back pain after the lumbar epidural steroid injections 2 , then we will consider doing radiofrequency ablation medial branch lumbar area Patient should hold the XERALTO for 3 days before the procedure , PQRS Measure Charge Sheet Measure #130: Documentation of Current Meds in Medical Chart: Patient's medications documented in chart Measure #226: Tobacco Use: Screen & Cessation Intervention: Pt not a tobacco user Measure #111: Pneumonia Vaccination: Pneumococcal vaccine administered or previously received Measure #47: Advance Care Plan: Advance care planning discussed & documented, pt chose/unable to give Measure #412: Opioid Treatment Agreement: Documented signed opioid trtmnt agreemnt min once during opioid trtmnt Measure #408: Opioid Therapy Follow-up Evaluation: Patient had f/u eval minimum every 3 months during opioid therapy Measure #317: Preventitive Care & Scrn High Bld Press & F/U: Normal blood pressure, f/u not required Measure #128: Body Mass Index (BMI) Screening & Follow-up: BMI documented ABOVE normal parameters - f/u documented Measure #131: Pain Assessment & Follow-up: Pain positive & plan documented, Follow-up scheduled Measure #431: Unhealthy Alcohol Use Preventative Care & Scrn: Patient not identified as an unhealthy alcohol user PQRS Narrative: Objective - Vital Signs Vital signs: Vital Signs Temp Pulse 94 12/09/18 12:25 Resp 18 12/09/18 12:25 BP 125/79 12/09/18 12:25 Pulse Ox 94 L 12/09/18 12:25 Intake & Output 12/09/18 12/10/18 12/10/18 18:59 06:59 18:59 Weight 106.594 kg
== END ==
LOC: PNWHC3 12:06
PROVIDERS: ATTEND Specialist
DX: G89.29 Other chronic pain (principal); M51.36 Other intervertebral disc degeneration, lumbar region; M47.816 Spondylosis without myelopathy or radiculopathy, lumbar region; M46.96 Unspecified inflammatory spondylopathy, lumbar region; M79.18 Myalgia, other site; Z79.891 Long term (current) use of opiate analgesic; Z79.899 Other long term (current) drug therapy; Z99.3 Dependence on wheelchair
CPT/HCPCS: 99211

== ENCOUNTER 2018-12-18 07:50 | Day surgery (SDC) | payer MEDICARE, BC ==
[2018-12-15 12:17] VITALS: BMI 46.8
[~2018-12-18 07:50] MED LIST changes: -HYDROmorphone 0.5 MG/0.5 ML SYRINGE IVP PRN; -LACTATED RINGERS 1,000 ML IV SCH; -LIDOCAINE 1% 20 ML VIAL (10MG/ML) FOR IV START INTRADERMA PRN; -LIDOCAINE HCL/PF 20 MG/ML ML SQ ONE; -MIDAZOLAM 2 MG/2 ML VIAL ONE; -ONDANSETRON 4 MG/2 ML VIAL IVP ONE; -PROPOFOL 10 MG/ML 20 ML VIAL IV ONE; -Pre Op ABX Message 1 EACH MISC MISCELLANE ONE; -ROPIVACAINE 5 MG/ML 30 ML VIAL MISCELLANE ONE; +SODIUM CHLORIDE 0.9% 500 ML 500 ML IV SCH; -fentaNYL (PF) 50 MCG/ML 2 ML AMP ONE
[2018-12-18 08:20] VITALS: TEMP 98.6
[2018-12-18] MEDS ORDERED: LACTATED RINGERS 1,000 ML IV ONE (08:32)
[2018-12-18 08:41] LABS: Glucose,Whole Blood 91 mg/dL (75-99)
--- NOTE | 2018-12-18 09:18 | P.PCN ---
Date of Procedure: 12/18/18 Surgeon: Eladia Rios Pathology: none sent Condition: stable Disposition: PACU Description of Procedure: PREOPERATIVE DIAGNOSIS: 1-Lumbar radiculopathy 2- Lumber Degenerative Disc Diseases. POSTOPERATIVE DIAGNOSIS: 1-Lumbar radiculopathy. 2-Lumbar Degenerative Disc Diseases PROCEDURE 1. Lumbar epidural steroid injection under fluoroscopic guidance at the L5-S1 level in the left paramedian approach. 2. Lumbar epidurogram. ANESTHESIA: Local with 1% lidocaine; and IV moderate conscious sedation with Versed and fentanyl EBL: Minimal PROCEDURE INDICATION: The patient with low back pain and radiculitis symptoms unresponsive to conservative treatment. Fluoroscopy was used to optimize visualization of the needle placement and to maximize safety. PROCEDURE DESCRIPTION / TECHNIQUE: The patient was seen and identified in the preoperative area. Risks, benefits, complications including but not limited to infections ,bleeding ,allergic reaction to the medications ,nerve damage and not complete pain relief , and alternatives were discussed with the patient. The patient agreed to proceed with the procedure and signed the consent. IV was started, and vital signs were stable. Patient was taken to the OR and time out was completed. The patient was placed in the prone position on procedure table and a pillow was placed under the abdomen to reduce lumbar lordosis. The lumbosacral area was prepped and draped in the usual sterile fashion with ChloraPrep.Patient was closely monitored during the procedure. Conscious sedation was used during the procedure to decrease patients anxiety. Vital signs were monitered during the entire procedure. Using anterior-posterior fluoroscopy, the L5-S1 interlaminar space was identified and the skin over this site was marked and then infiltrated with 1% lidocaine subcutaneously. Subsequently, a 18 gauge 6"Tuohy epidural needle was inserted and advanced toward the epidural space using the Loss of resistance to air technique and guided by AP and lateral fluoroscopy. The correct needle position in the epidural space was verified with the injection of 1 mL of the water soluble contrast dye Omnipaque 180 contrast and observing an excellent epidurogram with the epidural spread of the dye, after negative aspiration for blood and CSF and in the absence of paresthesias. Again after negative aspiration, a 8 ml mixture containing 80 mg of Kenalog and 5 ml of preservative free Normal Saline, and 2 ml of preservative free ropivacaine 0.5% solution was injected and a washout of epidurogram was seen. Needle was withdrawn intact, skin was cleansed, and bandages were applied. patient tolerated procedure well and was transferred to PACU in stable condition. COMPLICATIONS: None DISPOSITION / PLANS: The patient was placed in a supine position and transferred to the recovery area in a stable condition for observation. There was no evidence of lower extremity motor or sensory deficit after the procedure. Patient was discharged from the recovery room after meeting discharge criteria. Home discharge instructions were given to the patient by the staff. The patient was reexamined prior to discharge. The patient will schedule a follow up in the clinic in 2-4 weeks.
[2018-12-18] MEDS ORDERED: IV FLUID CONTINUATION 1,000 ML IV ONE (09:23)
--- NOTE | 2018-12-18 09:27 | FL ---
EXAMINATION TYPE: FL guided pain mgmt statistic DATE OF EXAM: 12/18/2018 CLINICAL HISTORY: Low back and sacroiliac joint pain. TECHNIQUE: Fluoroscopy. COMPARISON: None. FINDINGS: Fluoroscopic guidance was provided during pain relief procedure performed by Dr. Rios . A total of 3 seconds of fluoroscopic time was utilized during the procedure and two spot images are acquired. Images acquired shows needle localization at L5 level from posterior approach. IMPRESSION: As Above.
[2018-12-18 10:11] VITALS: RESP 20
[2018-12-18 10:58] VITALS: BP 104/55; PULSE 70
== END 2018-12-18 11:14 | disposition home or self-care (01) ==
LOC: ORPAIN 07:50
PROVIDERS: ATTEND Anesthesiology
DX: M51.16 Intervertebral disc disorders with radiculopathy, lumbar region (principal); I10 Essential (primary) hypertension; E66.01 Morbid (severe) obesity due to excess calories; Z68.42 Body mass index [BMI] 45.0-49.9, adult; J39.8 Other specified diseases of upper respiratory tract; J98.09 Other diseases of bronchus, not elsewhere classified; Z86.711 Personal history of pulmonary embolism; Z79.01 Long term (current) use of anticoagulants; Z88.1 Allergy status to other antibiotic agents; Z88.0 Allergy status to penicillin; Z88.8 Allergy status to other drugs, medicaments and biological substances
CPT/HCPCS: 62323; J2250; J3301; J3010; Q9966; 99152

== ENCOUNTER 2018-12-30 06:21 | Observation (INO) | payer MEDICARE, BC ==
[2018-12-30 06:59] LABS: Basophils % (A) 0 %; Eosinophils # (A) 0.2 k/uL (0-0.7); Eosinophils % (A) 1 %; HCT 42.2 % (34.0-46.0); HGB 13.5 gm/dL (11.4-16.0); Lymphocytes # (A) 1.6 k/uL (1.0-4.8); Lymphocytes % (A) 15 %; MCH 29.8 pg (25.0-35.0); MCV 93.2 fL (80.0-100.0); Monocytes # (A) 0.7 k/uL (0-1.0); Monocytes % (A) 6 %; Neutrophils # (A) 8.5 k/uL (1.3-7.7); Neutrophils % (A) 75 %; Platelet Count 277 k/uL (150-450); RBC 4.53 m/uL (3.80-5.40); RDW 14.3 % (11.5-15.5); WBC 11.2 k/uL (3.8-10.6)
[2018-12-30 07:10] LABS: INR 0.9 (<1.2); Partial Thromboplastin Time 23.1 sec (22.0-30.0)
--- NOTE | 2018-12-30 07:10 | XR ---
EXAM: XR Chest, 2 Views CLINICAL HISTORY: ITS.REASON XR Reason: Chest Pain TECHNIQUE: Frontal and lateral views of the chest. COMPARISON: No relevant prior studies available. FINDINGS: Lungs: Unremarkable. No consolidation. Pleural space: Unremarkable. No pneumothorax. Heart: Unremarkable. No cardiomegaly. Mediastinum: Unremarkable. Bones/joints: No acute fracture. IMPRESSION: No acute findings.
[2018-12-30] MEDS ORDERED: MAG HYDROX/AL HYDROX/SIMETH 30 ML, HYOSCYAMINE ELIXIR 10 ML, CIMETIDINE HCL 300 MG PO STA ×3 (07:14)
[2018-12-30] MEDS ORDERED: FAMOTIDINE 20 MG/2 ML VIAL IV STA (07:14)
[2018-12-30] MEDS ORDERED: MORPHINE SULFATE 4 MG/ML SYRINGE IM STA (07:14)
[2018-12-30 07:17] LABS: Calcium 9.6 mg/dL (8.4-10.2); Magnesium 2.6 mg/dL (1.6-2.3); Potassium 5.1 mmol/L (3.5-5.1); Total Protein 6.9 g/dL (6.3-8.2)
--- NOTE | 2018-12-30 07:21 | ED ---
General Adult HPI - General Chief complaint: Chest Pain Stated complaint: Chest Pain Indigestion Hx HTN,Palpitations Time Seen by Provider: 12/30/18 07:03 Source: patient, RN notes reviewed, old records reviewed Mode of arrival: ambulatory Limitations: no limitations - History of Present Illness Initial comments: 68-year-old female presenting for evaluation of indigestion, belching, chest pressure. Patient's symptoms began approximately 14 hours prior to arrival. She did admit she had some abdominal cramping and diarrhea. This is progressed to indigestion, belching and central chest pressure. Patient does not have any history of coronary artery disease. She has previous surgical history of cholecystectomy. Denies abdominal pain. Denies lower extremity pain or swelling. Denies cough or dyspnea. Patient does endorse some palpitations as sociated with her symptoms. - Related Data Home Medications Medication Instructions Recorded Confirmed Fluticasone Propionate [Flovent 2 puff INHALATION RT-BID 10/19/14 12/30/18 Hfa 220MCG] Salmeterol Xinafoate [Serevent 1 puff INHALATION RT-BID 10/19/14 12/30/18 Diskus] Albuterol Inhaler [Ventolin Hfa 2 puff INHALATION RT-Q6H PRN 11/05/14 12/30/18 Inhaler] Calcium Carbonate/Vitamin D3 1 tab PO BID 06/25/15 12/30/18 [Calcium 600-Vit D3 400 Tablet] Cetirizine HCl [Zyrtec] 10 mg PO DAILY 01/27/16 12/30/18 Esomeprazole Magnesium [NexIUM] 40 mg PO QAM 04/05/16 12/30/18 Multivitamin [Multivitamins Adult 1 tab PO DAILY 05/07/16 12/30/18 Gummies] Azithromycin [Zithromax] 250 mg PO MOWEFR 08/08/16 12/30/18 Vit C/E/Zn/Coppr/Lutein/Zeaxan 1 cap PO BID 01/09/17 12/30/18 [Preservision Areds 2 Softgel] Ubidecarenone [Co Q-10] 200 mg PO HS 02/24/17 12/30/18 Multivit-Min/Iron/Folic/Mja665 2 tab PO DAILY@1200 03/31/17 12/30/18 [Hair, Skin and Nails Tablet] Rivaroxaban [Xarelto] 10 mg PO DAILY 08/27/17 12/30/18 Ipratropium-Albuterol Nebulize 3 ml INHALATION RT-QID PRN 05/28/18 12/30/18 [Duoneb 0.5 mg-3 mg/3 ml Soln] Benzonatate [Tessalon Perles] 100 mg PO TID PRN 06/27/18 12/30/18 Cholecalciferol [Vitamin D3] 1,000 unit PO DAILY 06/27/18 12/30/18 Dulcoease 100 mg PO DAILY PRN 06/27/18 12/30/18 Levothyroxine Sodium [Synthroid] 112 mcg PO QAM 06/27/18 12/30/18 Magnesium Gluconate [Magonate] 500 mg PO DAILY 06/27/18 12/30/18 Rosuvastatin Calcium [Crestor] 5 mg PO DAILY 06/27/18 12/30/18 Vitamin C Gummies 250 mg PO BID 06/27/18 12/30/18 Hydrocortisone [Cortef] 5 mg PO 1600 10/14/18 12/30/18 Hydrocortisone [Cortef] 15 mg PO QAM 10/14/18 12/30/18 Hydrochlorothiazide 25 mg PO QAM 10/31/18 12/30/18 Losartan Potassium 100 mg PO QAM 10/31/18 12/30/18 Diltiazem Cd [Cardizem CD] 180 mg PO DAILY 12/09/18 12/30/18 tiZANidine HCL [Zanaflex] 4 mg PO HS PRN 12/15/18 12/30/18 Previous Rx's Medication Instructions Recorded Gabapentin [Neurontin] 100 mg PO BID #120 cap 12/09/18 oxyCODONE-APAP 7.5-325MG [Percocet 1 tab PO DAILY PRN 30 Days #30 tab 12/09/18 7.5-325 mg] Allergies Allergy/AdvReac Type Severity Reaction Status Date / Time cefuroxime axetil Allergy Dyspnea Verified 12/30/18 07:19 [From Ceftin] moxifloxacin HCl Allergy Dyspnea Verified 12/30/18 07:19 [From Avelox] Penicillins Allergy Dyspnea Verified 12/30/18 07:19 rofecoxib [From Vioxx] Allergy Dyspnea Verified 12/30/18 07:19 blackberry Allergy Rash/Hives Uncoded 12/30/18 06:33 Review of Systems ROS Statement: Those systems with pertinent positive or pertinent negative responses have been documented in the HPI. ROS Other: All systems not noted in ROS Statement are negative. 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 MTHFR GENE. STUCCO KERATOSIS, past fxs of L foot and R ankle, sciatic problems, diverticulitis, hypothyroid History of Any Multi-Drug Resistant Organisms: None Reported Past Surgical History: Section, Cholecystectomy, Heart Catheterization, Orthopedic Surgery Additional Past Surgical History / Comment(s): RT ANKLE- PLATE & SCREWS, COLONO SCOPIES, EGDs, Bronchial Thermoplasty X3., KENDALL CATARACTS with lens implants. DEVIATED SEPTUM SURGERY. MULTIPLE BRONCHOSCOPIES, [facility] PROCEDURES, pt on bactrim for URI 07/31/18, CTR LEFT WRIST 11/04/18 Past Anesthesia/Blood Transfusion Reactions: No Reported Reaction Additional Past Anesthesia/Blood Transfusion Reaction / Comment(s): Pt has never received blood. DAUGHTER PONV Past Psychological History: No Psychological Hx Reported Smoking Status: Former smoker Past Alcohol Use History: None Reported Past Drug Use History: None Reported - Past Family History Father Family Medical History: Cancer Additional Family Medical History / Comment(s): Colon cancer. Mother Family Medical History: Congestive Heart Failure (CHF) Additional Family Medical History / Comment(s): emphysema Daughter(s) Family Medical History: Deep Vein Thrombosis (DVT) General Exam Limitations: no limitations General appearance: alert, in no apparent distress Head exam: Present: atraumatic, normocephalic Eye exam: Present: normal appearance, PERRL ENT exam: Present: normal exam Neck exam: Present: normal inspection. Absent: tenderness, meningismus Respiratory exam: Present: normal lung sounds bilaterally. Absent: respiratory distress, wheezes Cardiovascular Exam: Present: regular rate, normal rhythm GI/Abdominal exam: Present: soft, distended. Absent: tenderness, guarding, rebound Extremities exam: Present: normal inspection, normal capillary refill. Absent: pedal edema Neurological exam: Present: alert, oriented X3, CN II-XII intact. Absent: motor sensory deficit Psychiatric exam: Present: normal affect, normal mood Skin exam: Present: warm, dry, intact. Absent: cyanosis, diaphoretic Course Vital Signs 12/30/18 12/30/18 12/30/18 06:29 07:21 09:12 Temperature 98.8 F Pulse Rate 88 84 85 Respiratory 18 16 16 Rate Blood Pressure 137/69 127/76 129/78 O2 Sat by Pulse 97 97 99 Oximetry EKG Findings - EKG Comments: EKG Findings:: EKG: Normal sinus rhythm, LVH, 84 rate, WV interval 132, QRS duration 82, QTC 418, no significant change compared to prior. no ST segment elevation Medical Decision Making - Medical Decision Making 60-year-old female with indigestion, belching, and chest pressure. Patient well-appearing with stable vitals. She has nonischemic EKG which is similar compared to prior. Chest x-ray obtained, negative for acute process, no focal pneumonia. Patient has a leukocytosis 11.2, stable hemoglobin, creatinine 1.17 from baseline of 0.68. Initial troponin negative. Laboratory studies otherwise unremarkable. KUB does show some gaseous distention without small bowel obstruction. Patient reevaluated, continues to have distressing symptoms. I suspect this is likely gastrointestinal, possible early small bowel obstruction however patient is having some central chest pressure. Will be kept in observation for symptomatic control, reevaluation, and repeat cardiac enzymes. Case discussed with admitting physician. - Lab Data Result diagrams: 12/30/18 06:47 12/30/18 06:47 Lab Results 12/30/18 12/30/18 12/30/18 Range/Units 06:47 06:47 06:47 WBC 11.2 H (3.8-10.6) k/uL RBC 4.53 (3.80-5.40) m/uL Hgb 13.5 (11.4-16.0) gm/dL Hct 42.2 (34.0-46.0) % MCV 93.2 (80.0-100.0) fL MCH 29.8 (25.0-35.0) pg MCHC 32.0 (31.0-37.0) g/dL RDW 14.3 (11.5-15.5) % Plt Count 277 (150-450) k/uL Neutrophils % 75 % Lymphocytes % 15 % Monocytes % 6 % Eosinophils % 1 % Basophils % 0 % Neutrophils # 8.5 H (1.3-7.7) k/uL Lymphocytes # 1.6 (1.0-4.8) k/uL Monocytes # 0.7 (0-1.0) k/uL Eosinophils # 0.2 (0-0.7) k/uL Basophils # 0.0 (0-0.2) k/uL PT 10.0 (9.0-12.0) sec INR 0.9 (<1.2) APTT 23.1 (22.0-30.0) sec Sodium 139 (137-145) mmol/L Potassium 5.1 (3.5-5.1) mmol/L Chloride 108 H (98-107) mmol/L Carbon Dioxide 22 (22-30) mmol/L Anion Gap 9 mmol/L BUN 35 H (7-17) mg/dL Creatinine 1.17 H (0.52-1.04) mg/dL Est GFR (CKD-EPI)AfAm 55 (>60 ml/min/1.73 sqM) Est GFR (CKD-EPI)NonAf 48 (>60 ml/min/1.73 sqM) Glucose 103 H (74-99) mg/dL Calcium 9.6 (8.4-10.2) mg/dL Magnesium 2.6 H (1.6-2.3) mg/dL Total Bilirubin 1.0 (0.2-1.3) mg/dL AST 29 (14-36) U/L ALT 37 (9-52) U/L Alkaline Phosphatase 60 (38-126) U/L Troponin I (0.000-0.034) ng/mL Total Protein 6.9 (6.3-8.2) g/dL Albumin 4.0 (3.5-5.0) g/dL 12/30/18 Range/Units 06:47 WBC (3.8-10.6) k/uL RBC (3.80-5.40) m/uL Hgb (11.4-16.0) gm/dL Hct (34.0-46.0) % MCV (80.0-100.0) fL MCH (25.0-35.0) pg MCHC (31.0-37.0) g/dL RDW (11.5-15.5) % Plt Count (150-450) k/uL Neutrophils % % Lymphocytes % % Monocytes % % Eosinophils % % Basophils % % Neutrophils # (1.3-7.7) k/uL Lymphocytes # (1.0-4.8) k/uL Monocytes # (0-1.0) k/uL Eosinophils # (0-0.7) k/uL Basophils # (0-0.2) k/uL PT (9.0-12.0) sec INR (<1.2) APTT (22.0-30.0) sec Sodium (137-145) mmol/L Potassium (3.5-5.1) mmol/L Chloride (98-107) mmol/L Carbon Dioxide (22-30) mmol/L Anion Gap mmol/L BUN (7-17) mg/dL Creatinine (0.52-1.04) mg/dL Est GFR (CKD-EPI)AfAm (>60 ml/min/1.73 sqM) Est GFR (CKD-EPI)NonAf (>60 ml/min/1.73 sqM) Glucose (74-99) mg/dL Calcium (8.4-10.2) mg/dL Magnesium (1.6-2.3) mg/dL Total Bilirubin (0.2-1.3) mg/dL AST (14-36) U/L ALT (9-52) U/L Alkaline Phosphatase (38-126) U/L Troponin I <0.012 (0.000-0.034) ng/mL Total Protein (6.3-8.2) g/dL Albumin (3.5-5.0) g/dL Disposition Clinical Impression: Chest pain, Acute kidney injury Disposition: ADMITTED IP TO THIS [facility] Condition: Stable Is patient prescribed a controlled substance at d/c from ED?: No Referrals: Karli Wallace MD [Primary Care Provider] - 1-2 days Decision to Admit Reason: Admit from EC Decision Date: 12/30/18 Decision Time: 09:27
--- NOTE | 2018-12-30 08:00 | XR ---
EXAMINATION TYPE: XR KUB DATE OF EXAM: 12/30/2018 7:56 AM CLINICAL HISTORY: Status post cholecystectomy. Abdominal pain and constant belching. TECHNIQUE: Single upright image of the abdomen is obtained. COMPARISON: 03/04/2016. FINDINGS: Scattered gas is seen in nondilated small bowel loops. Gas and fecal material is seen in no ndilated colon. There is no pneumoperitoneum or abnormal calcification appreciated. The lung bases ar e clear and the osseous structures are intact. Cholecystectomy clips are present. IMPRESSION: Gaseous distention without dilation of both large and small bowel. Nonobstructive bowel g as pattern.
[2018-12-30] MEDS ORDERED: SODIUM CHLORIDE 0.9% 500 ML 500 ML IV ONE (08:53)
[2018-12-30] MEDS ORDERED: ASPIRIN 325 MG TAB PO STA (08:53)
[2018-12-30] MEDS ORDERED: MORPHINE SULFATE 4 MG/ML SYRINGE IVP STA (08:54)
[2018-12-30] MEDS ORDERED: DICYCLOMINE 10 MG/ML 2 ML AMP IM STA (08:54)
[2018-12-30] MEDS ORDERED: ONDANSETRON 4 MG/2 ML VIAL IVP STA (08:54)
[2018-12-30] MEDS: SODIUM CHLORIDE 0.9% 1,000 ML IV SCH ×2 (09:03→21:46)
[2018-12-30] MEDS ORDERED: ACETAMINOPHEN TAB 325 MG TAB PO PRN (09:20)
[2018-12-30] MEDS ORDERED: NALOXONE 0.4 MG/ML 1 ML VIAL IV PRN ×2 (09:20→11:47)
[2018-12-30] MEDS ORDERED: ONDANSETRON 4 MG/2 ML VIAL IVP PRN (09:20)
[2018-12-30] MEDS ORDERED: MORPHINE SULFATE 4 MG/ML SYRINGE IV PRN (09:20)
[2018-12-30] MEDS ORDERED: DICYCLOMINE 10 MG CAP PO PRN (11:50)
[2018-12-30] MEDS ORDERED: BENZONATATE 100 MG CAP PO PRN (11:51)
[2018-12-30] MEDS ORDERED: oxyCODONE-APAP 7.5-325MG 1 EACH TAB PO PRN (11:51)
[2018-12-30] MEDS ORDERED: ALBUTEROL INHALER 60 PUFF/8 GM INHALER INHALATION PRN (11:51)
--- NOTE | 2018-12-30 11:54 | P.HPIM ---
History of Present Illness H&P Date: 12/30/18 Chief Complaint: diarrhea Patient is a 68-year-old female with past medical history of hypertension, dyslipidemia, hypothyroidism, COPD with tracheobronchial malacia, adrenal insufficiency, and obesity who presented to the hospital with complaints of diarrhea and belching. In the emergency department she was seen and examined and underwent a comprehensive evaluation. Her initial vital signs within normal limits. Laboratory analysis showed an elevated white blood cell count 11.2 and elevated creatinine. EKG was normal. She complained of some chest pressure and troponin was normal. Chest x-ray showed no acute process and KUB showed nonspecific gas distention. There was concern for possible developing small bowel obstruction or acute coronary syndrome and she was therefore placed in observation. Patient seen and examined at bedside in the emergency department. She states that yesterday she ate a sausage biscuit for breakfast and then had soup for lunch. About 3 PM she had it increasing belching and bloating feeling. She tried taking Gaviscon and Gas-X Extra Strength 2 times throughout the night and did not have any relief. She then noted some back pain that was different than her chronic back pain. She had diarrhea approximately 3 times. She received no relief without any of her home therapies and she began having some central chest pressure secondary to the bloating and therefore decided presented to the ER. She denies any fevers, chills, or abdominal pain. She follows with Dr. Lange of cardiology and has an echocardiogram scheduled for Saturday. She follows with Dr. Wallace is supposed to re-see her on regarding her blood pressure medications. She received a dose of morphine, GI cocktail, and a dose of Bentyl. All of her symptoms have now resolved. She does not report any recent stress test. She has not been having any chest pain or unusual shortness of breath at home. She has been treated with Bactrim for bronchitis by Dr. Snider. She was recently transitioned from metoprolol to losartan and hydrochlorothiazide. She states her appetite has been normal and she has been eating and drinking well. Review of Systems Pertinent positives and negatives as discussed in HPI, a complete review of systems was performed and all other systems are negative. 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), palpitations, MTHFR gene, multiple PEs, adrenal insufficiency, IBS, benign colon polyps, hiatal hernia, macular degeneration with L eye worse, stuccokeratosis, past L foot and R ankle fractures, chronic back pain and bilateral sciatica L side worse, lumbar DDD, migraines, osteoporosis History of Any Multi-Drug Resistant Organisms: None Reported Past Surgical History: Section, Cholecystectomy, Heart Catheterization, Orthopedic Surgery, Tonsillectomy Additional Past Surgical History / Comment(s): R ankle plate/screws, L wrist carpal tunnel release, multiple bronchoscopies, bronchial thermoplasty x3, EGDs, colonoscopies/polypectomy, deviated septal surgery, [facility] pain clinic procedures, PICC, bilateral cataract removals/lens implants. Past Anesthesia/Blood Transfusion Reactions: No Reported Reaction Additional Past Anesthesia/Blood Transfusion Reaction / Comment(s): Pt has never received blood. DAUGHTER PONV Smoking Status: Former smoker Past Alcohol Use History: None Reported Past Drug Use History: None Reported Additional History: Lives with uses a cane - Past Family History Father Family Medical History: Cancer Additional Family Medical History / Comment(s): Father from colon cancer at the age of 65yrs. Mother Family Medical History: Congestive Heart Failure (CHF), COPD Additional Family Medical History / Comment(s): Mother lived to be 80 yrs old. Daughter(s) Family Medical History: Deep Vein Thrombosis (DVT) Medications and Allergies Home Medications Medication Instructions Recorded Confirmed Type Fluticasone Propionate [Flovent 2 puff INHALATION RT-BID 10/19/14 12/30/18 History Hfa 220MCG] Salmeterol Xinafoate [Serevent 1 puff INHALATION RT-BID 10/19/14 12/30/18 History Diskus] Albuterol Inhaler [Ventolin Hfa 2 puff INHALATION RT-Q6H PRN 11/05/14 12/30/18 History Inhaler] Calcium Carbonate/Vitamin D3 1 tab PO BID 06/25/15 12/30/18 History [Calcium 600-Vit D3 400 Tablet] Cetirizine HCl [Zyrtec] 10 mg PO DAILY 01/27/16 12/30/18 History Esomeprazole Magnesium [NexIUM] 40 mg PO QAM 04/05/16 12/30/18 History Multivitamin [Multivitamins Adult 1 tab PO DAILY 05/07/16 12/30/18 History Gummies] Azithromycin [Zithromax] 250 mg PO MOWEFR 08/08/16 12/30/18 History Vit C/E/Zn/Coppr/Lutein/Zeaxan 1 cap PO BID 01/09/17 12/30/18 History [Preservision Areds 2 Softgel] Ubidecarenone [Co Q-10] 200 mg PO HS 02/24/17 12/30/18 History Multivit-Min/Iron/Folic/Ouv206 2 tab PO DAILY@1200 03/31/17 12/30/18 History [Hair, Skin and Nails Tablet] Rivaroxaban [Xarelto] 10 mg PO DAILY 08/27/17 12/30/18 History Ipratropium-Albuterol Nebulize 3 ml INHALATION RT-QID PRN 05/28/18 12/30/18 History [Duoneb 0.5 mg-3 mg/3 ml Soln] Benzonatate [Tessalon Perles] 100 mg PO TID PRN 06/27/18 12/30/18 History Cholecalciferol [Vitamin D3] 1,000 unit PO DAILY 06/27/18 12/30/18 History Dulcoease 100 mg PO DAILY PRN 06/27/18 12/30/18 History Levothyroxine Sodium [Synthroid] 112 mcg PO QAM 06/27/18 12/30/18 History Magnesium Gluconate [Magonate] 500 mg PO DAILY 06/27/18 12/30/18 History Rosuvastatin Calcium [Crestor] 5 mg PO DAILY 06/27/18 12/30/18 History Vitamin C Gummies 250 mg PO BID 06/27/18 12/30/18 History Hydrocortisone [Cortef] 5 mg PO 1600 10/14/18 12/30/18 History Hydrocortisone [Cortef] 15 mg PO QAM 10/14/18 12/30/18 History Hydrochlorothiazide 25 mg PO QAM 10/31/18 12/30/18 History Losartan Potassium 100 mg PO QAM 10/31/18 12/30/18 History Diltiazem Cd [Cardizem CD] 180 mg PO DAILY 12/09/18 12/30/18 History Gabapentin [Neurontin] 100 mg PO BID #120 cap 12/09/18 12/30/18 Rx oxyCODONE-APAP 7.5-325MG [Percocet 1 tab PO DAILY PRN 30 Days #30 tab 12/09/18 12/30/18 Rx 7.5-325 mg] tiZANidine HCL [Zanaflex] 4 mg PO HS PRN 12/15/18 12/30/18 History Allergies Allergy/AdvReac Type Severity Reaction Status Date / Time cefuroxime axetil Allergy Dyspnea Verified 12/30/18 07:19 [From Ceftin] moxifloxacin HCl Allergy Dyspnea Verified 12/30/18 07:19 [From Avelox] Penicillins Allergy Dyspnea Verified 12/30/18 07:19 rofecoxib [From Vioxx] Allergy Dyspnea Verified 12/30/18 07:19 blackberry Allergy Rash/Hives Uncoded 12/30/18 06:33 Physical Exam Osteopathic Statement: *. No significant issues noted on an osteopathic structural exam other than those noted in the History and Physical/Consult. Vitals: Vital Signs Temp Pulse Resp BP Pulse Ox 12/30/18 09:12 85 16 129/78 99 12/30/18 08:00 82 18 139/79 99 12/30/18 07:21 84 16 127/76 97 12/30/18 06:29 98.8 F 88 18 137/69 97 Intake and Output 12/29/18 12/30/18 12/30/18 22:59 06:59 14:59 Other: Weight 106.594 kg General: non toxic, no distress, appears at stated age, obese Derm: no unusual rashes/lesions no unusual ecchymoses, warm, dry Head: atraumatic, normocephalic, symmetric Eyes: EOMI, no lid lag, anicteric sclera, pupils equal round reactive to light ENT: Nose and ears atraumatic, no thrush, no pharyngeal erythema Neck: No thyromegaly, no cervical lymphadenopathy, trachea midline, supple Mouth: no lip lesion, mucus membranes moist Cardiovascular: S1S2 reg, no murmur, positive posterior tibial pulse bilateral, no edema, capillary refill less than 2 seconds Lungs: Faint wheeze and rhonchi bilateral, no rhonchi, no rales , no accessory muscle use Abdominal: soft, nontender to palpation, no guarding, no appreciable organomegaly, normal bowel sounds Ext: no gross muscle atrophy, muscle strength 5 out of 5 in all 4 extremities grossly, no contractures, Neuro: CN II-XI grossly intact, light touch intact all 4 extremities, finger to nose within normal limits, Psych: Alert, oriented, appropriate affect Results CBC & Chem 7: 12/30/18 06:47 12/30/18 06:47 Labs: Abnormal Lab Results - Last 24 Hours (Table) 12/30/18 12/30/18 Range/Units 06:47 06:47 WBC 11.2 H (3.8-10.6) k/uL Neutrophils # 8.5 H (1.3-7.7) k/uL Chloride 108 H (98-107) mmol/L BUN 35 H (7-17) mg/dL Creatinine 1.17 H (0.52-1.04) mg/dL Glucose 103 H (74-99) mg/dL Magnesium 2.6 H (1.6-2.3) mg/dL Comments: EKG is reviewed by myself reveals normal sinus rhythm at a rate of 84, QRS 81, QTC 418, no significant ST-T wave changes, normal axis Chest x-ray: report reviewed Thrombosis Risk Factor Assmnt - DVT/VTE Prophylaxis DVT/VTE Prophylaxis: Pharmacologic Prophylaxis ordered - Choose All That Apply Any of the Below Risk Factors Present?: Yes Each Factor Represents 1 point: Abnormal pulmonary function (COPD), Obesity (BMI >25) Other Risk Factors: Yes Each Risk Factor Represents 2 Points: Age 61-74 years Other congenital or acquired thrombophilia - If yes, enter type in comment: No Thrombosis Risk Factor Assessment Total Risk Factor Score: 4 Thrombosis Risk Factor Assessment Level: Moderate Risk Assessment and Plan Assessment: Diarrhea -Gastroenteritis versus early small bowel obstruction -Clear liquid diet, antiemetics, IV fluids, symptom control with Bentyl Acute kidney injury -Likely secondary to hydrochlorothiazide, losartan, and Bactrim use -Gentle IV fluids -Repeat blood work which she follows with Dr. Wallace later this week Hypertension, controlled -Hold hydrochlorothiazide and losartan -Follow blood pressures Adrenal insufficiency -Continue with Cortef -Monitor blood pressures COPD with tracheobronchitis and history of tracheobronchial malacia -Continue Bactrim -Continue outpatient inhaler regimen -No signs of exacerbation Chronic comorbid conditions: Hypothyroidism Dyslipidemia GERD IBS Chronic low back pain History of multiple pulmonary emboli The patient is placed in observation with an anticipated less than 2 midnight stay for evaluation of diarrhea. Surrogate decision-maker: sukh CODE STATUS: Full DVT prophylaxis: Xarelto Discussed with: Patient Anticipated discharge date: <[address]: home A total of 55 minutes was spent on the care of this complex patient more than 50% of the time was spent in counseling and care coordination.
[2018-12-30] MEDS ORDERED: SIMETHICONE 80 MG CHEWABLE PO PRN (15:26)
[2018-12-30] MEDS ORDERED: MAG HYDROX/AL HYDROX/SIMETH 30 ML CUP PO PRN (15:26)
[2018-12-30] MEDS: IPRATROPIUM-ALBUTEROL 3 ML NEB INHALATION PRN ×2 (15:55→20:27)
[2018-12-30] MEDS ORDERED: HYDROCORTISONE 10 MG TAB PO SCH (16:00)
[2018-12-30] MEDS: FORMOTEROL FUMARATE 20 MCG/2 ML NEBU INHALATION SCH (20:27)
[2018-12-30] MEDS: FLUTICASONE 220 MCG INHALER INHALATION SCH (20:41)
[2018-12-30] MEDS ORDERED: tiZANidine 4 MG TAB PO PRN (21:00)
[2018-12-30] MEDS ORDERED: NON-FORMULARY DRUG (Ubidecarenone [Co Q-10] 200 MG) PO SCH (21:00)
[2018-12-30] MEDS: ASCORBIC ACID 500 MG TAB PO SCH (21:42)
[2018-12-30] MEDS: VIT A,C & E-LUTEIN-MINERALS 1 EACH TAB PO SCH (21:43)
[2018-12-30] MEDS: CALCIUM CARB-VIT D 500MG-200UN 1 EACH TAB PO SCH (21:43)
[2018-12-30] MEDS: GABAPENTIN 100 MG CAP PO SCH (21:43)
[2018-12-30 22:35] VITALS: RESP 17
[2018-12-30] MEDS ORDERED: MELATONIN 3 MG TABLET PO SCH (22:45)
[2018-12-31 05:14] VITALS: BP 132/84; TEMP 97.9
[2018-12-31] MEDS ORDERED: LEVOTHYROXINE 112 MCG TAB PO SCH (06:30)
[2018-12-31] MEDS: VIT A,C & E-LUTEIN-MINERALS 1 EACH TAB PO SCH (07:18)
[2018-12-31] MEDS: ASCORBIC ACID 500 MG TAB PO SCH (07:18)
[2018-12-31] MEDS: GABAPENTIN 100 MG CAP PO SCH (07:19)
[2018-12-31] MEDS: CALCIUM CARB-VIT D 500MG-200UN 1 EACH TAB PO SCH (07:20)
[2018-12-31 08:00] LABS: Calcium 8.9 mg/dL (8.4-10.2); Potassium 4.9 mmol/L (3.5-5.1)
[2018-12-31] MEDS: FORMOTEROL FUMARATE 20 MCG/2 ML NEBU INHALATION SCH (08:39)
[2018-12-31] MEDS: FLUTICASONE 220 MCG INHALER INHALATION SCH (08:39)
[2018-12-31] MEDS: IPRATROPIUM-ALBUTEROL 3 ML NEB INHALATION PRN (08:39)
[2018-12-31] MEDS ORDERED: HYDROCORTISONE 10 MG TAB PO SCH ×2 (09:00→16:00)
[2018-12-31] MEDS ORDERED: DILTIAZEM CD 180 MG CAP.ER.24H PO SCH (09:00)
[2018-12-31] MEDS ORDERED: PANTOPRAZOLE 40 MG/10 ML VIAL IV SCH (09:00)
[2018-12-31] MEDS ORDERED: RIVAROXABAN 10 MG TAB PO SCH (09:00)
[2018-12-31] MEDS ORDERED: MAGNESIUM OXIDE 400 MG TAB PO SCH (09:00)
[2018-12-31] MEDS ORDERED: ATORVASTATIN 10 MG TAB PO SCH (09:00)
[2018-12-31] MEDS ORDERED: CHOLECALCIFEROL 1,000 UNIT TAB PO SCH (09:00)
[2018-12-31] MEDS ORDERED: NON-FORMULARY DRUG (Esomeprazole Magnesium [Nexium] 40 MG) PO SCH (09:00)
[2018-12-31] MEDS ORDERED: AZITHROMYCIN 250 MG TAB PO SCH (09:00)
[2018-12-31] MEDS ORDERED: SULFAMETHOX-TMP 800-160MG 1 EACH TAB PO SCH (09:00)
[2018-12-31] MEDS ORDERED: LORATADINE 10 MG TAB PO SCH (09:00)
[2018-12-31 09:03] VITALS: PULSE 74
--- NOTE | 2018-12-31 11:00 | P.DS ---
Providers Date of admission: 12/30/18 09:20 Expected date of discharge: 12/31/18 Attending physician: Kostas Huff MD Primary care physician: Karli Wallace MD Hospital Course: Discharge Diagnosis: gastroenteritis MICHAEL, resolved HTN Adrenal insufficiency COPD with tracheobronchitis- was being treated as outpatient. Hx IBS Hospital Course: Patient is a 68-year-old female with past medical history of hypertension, dyslipidemia, hypothyroidism, COPD with tracheobronchial malacia, adrenal insufficiency, and obesity who presented to the hospital with complaints of diarrhea and belching. In the emergency department she was seen and examined and underwent a comprehensive evaluation. Her initial vital signs within normal limits. Laboratory analysis showed an elevated white blood cell count 11.2 and elevated creatinine. EKG was normal. She complained of some chest pressure due to gas and troponin was normal. Chest x-ray showed no acute process and KUB showed nonspecific gas distention. There was concern for possible developing small bowel obstruction or acute coronary syndrome and she was therefore placed in observation. Her troponin remained negative. She did not have any recurrence of her chest pressure. She was able to tolerate a diet and did not have any nausea or vomiting. She received IVF for elevated BUN and CR and those improved. She was determined stable for discharge. She has an appoint on saturday for outpatient echo with Dr. Fang. She will hold her HCTZ for the next 2 days and then resume. She is currently on bactrim for bronchitis per Dr. Snider as an outpatient. She has an appointment with Dr. Wallace in the morning. Patient seen and examined at bedside.No chest pain, shortness of breath, or belching. No other complaints currently. Wants to go home. Vital signs reviewed and stable. General: non toxic, no distress, appears at stated age Derm: warm, dry Head: atraumatic, normocephalic, symmetric Eyes: EOMI, no lid lag, anicteric sclera Mouth: no lip lesion, mucus membranes moist Cardiovascular: S1S2 reg, no murmur, positive posterior tibial pulse bilateral, Lungs: CTA bilateral, no rhonchi, no rales , no accessory muscle use Abdominal: soft, nontender to palpation, no guarding, no appreciable organomegaly Ext: no gross muscle atrophy, no edema, no contractures Neuro: CN II-XI grossly intact, no focal neuro deficits Psych: Alert, oriented, appropriate affect A total of 25 minutes of time were spent preparing this complex discharge summary . Patient Condition at Discharge: Stable Plan - Discharge Summary Discharge Rx Participant: No New Discharge Prescriptions: Continue Fluticasone Propionate [Flovent Hfa 220MCG] 2 puff INHALATION RT-BID Salmeterol Xinafoate [Serevent Diskus] 1 puff INHALATION RT-BID Albuterol Inhaler [Ventolin Hfa Inhaler] 2 puff INHALATION RT-Q6H PRN PRN Reason: Shortness Of Breath Calcium Carbonate/Vitamin D3 [Calcium 600-Vit D3 400 Tablet] 1 tab PO BID Cetirizine HCl [Zyrtec] 10 mg PO DAILY Esomeprazole Magnesium [NexIUM] 40 mg PO QAM Multivitamin [Multivitamins Adult Gummies] 1 tab PO DAILY Azithromycin [Zithromax] 250 mg PO MOWEFR Vit C/E/Zn/Coppr/Lutein/Zeaxan [Preservision Areds 2 Softgel] 1 cap PO BID Ubidecarenone [Co Q-10] 200 mg PO HS Multivit-Min/Iron/Folic/Mah800 [Hair, Skin and Nails Tablet] 2 tab PO DAILY@1200 Rivaroxaban [Xarelto] 10 mg PO DAILY Ipratropium-Albuterol Nebulize [Duoneb 0.5 mg-3 mg/3 ml Soln] 3 ml INHALATION RT-QID PRN PRN Reason: Shortness Of Breath Benzonatate [Tessalon Perles] 100 mg PO TID PRN PRN Reason: Cough Cholecalciferol [Vitamin D3] 1,000 unit PO DAILY Dulcoease 100 mg PO DAILY PRN PRN Reason: Constipation Levothyroxine Sodium [Synthroid] 112 mcg PO QAM Magnesium Gluconate [Magonate] 500 mg PO DAILY Rosuvastatin Calcium [Crestor] 5 mg PO DAILY Vitamin C Gummies 250 mg PO BID Hydrocortisone [Cortef] 15 mg PO QAM Losartan Potassium 100 mg PO QAM Hydrochlorothiazide 25 mg PO QAM Diltiazem Cd [Cardizem CD] 180 mg PO DAILY Gabapentin [Neurontin] 100 mg PO BID #120 cap oxyCODONE-APAP 7.5-325MG [Percocet 7.5-325 mg] 1 tab PO DAILY PRN 30 Days #30 tab PRN Reason: Pain tiZANidine HCL [Zanaflex] 4 mg PO HS PRN PRN Reason: Muscle Spasm Changed Hydrocortisone [Cortef] 10 mg PO 1600 #0 Discharge Medication List Fluticasone Propionate [Flovent Hfa 220MCG] 2 puff INHALATION RT-BID 10/19/14 [History] Salmeterol Xinafoate [Serevent Diskus] 1 puff INHALATION RT-BID 10/19/14 [History] Albuterol Inhaler [Ventolin Hfa Inhaler] 2 puff INHALATION RT-Q6H PRN 11/05/14 [History] Calcium Carbonate/Vitamin D3 [Calcium 600-Vit D3 400 Tablet] 1 tab PO BID 06/25/15 [History] Cetirizine HCl [Zyrtec] 10 mg PO DAILY 01/27/16 [History] Esomeprazole Magnesium [NexIUM] 40 mg PO QAM 04/05/16 [History] Multivitamin [Multivitamins Adult Gummies] 1 tab PO DAILY 05/07/16 [History] Azithromycin [Zithromax] 250 mg PO MOWEFR 08/08/16 [History] Vit C/E/Zn/Coppr/Lutein/Zeaxan [Preservision Areds 2 Softgel] 1 cap PO BID 01/09/17 [History] Ubidecarenone [Co Q-10] 200 mg PO HS 02/24/17 [History] Multivit-Min/Iron/Folic/Thb844 [Hair, Skin and Nails Tablet] 2 tab PO DAILY@1200 03/31/17 [History] Rivaroxaban [Xarelto] 10 mg PO DAILY 08/27/17 [History] Ipratropium-Albuterol Nebulize [Duoneb 0.5 mg-3 mg/3 ml Soln] 3 ml INHALATION RT-QID PRN 05/28/18 [History] Benzonatate [Tessalon Perles] 100 mg PO TID PRN 06/27/18 [History] Cholecalciferol [Vitamin D3] 1,000 unit PO DAILY 06/27/18 [History] Dulcoease 100 mg PO DAILY PRN 06/27/18 [History] Levothyroxine Sodium [Synthroid] 112 mcg PO QAM 06/27/18 [History] Magnesium Gluconate [Magonate] 500 mg PO DAILY 06/27/18 [History] Rosuvastatin Calcium [Crestor] 5 mg PO DAILY 06/27/18 [History] Vitamin C Gummies 250 mg PO BID 06/27/18 [History] Hydrocortisone [Cortef] 15 mg PO QAM 10/14/18 [History] Hydrochlorothiazide 25 mg PO QAM 10/31/18 [History] Losartan Potassium 100 mg PO QAM 10/31/18 [History] Diltiazem Cd [Cardizem CD] 180 mg PO DAILY 12/09/18 [History] Gabapentin [Neurontin] 100 mg PO BID #120 cap 12/09/18 [Rx] oxyCODONE-APAP 7.5-325MG [Percocet 7.5-325 mg] 1 tab PO DAILY PRN 30 Days #30 tab 12/09/18 [Rx] tiZANidine HCL [Zanaflex] 4 mg PO HS PRN 12/15/18 [History] Hydrocortisone [Cortef] 10 mg PO 1600 #0 12/31/18 [Rx] Follow up Appointment(s)/Referral(s): Karli Wallace MD [Primary Care Provider] - 1-2 days Activity/Diet/Wound Care/Special Instructions: Diet: heart healthy Activity: as tolerated Resume your hydrocholorthiazide on 01/03 Complete your course of bactrim Discharge Disposition: HOME SELF-CARE
[2018-12-31] MEDS ORDERED: IRON PO SCH (12:00)
[2018-12-31] MEDS ORDERED: MULTIVIT MIN PO SCH (12:00)
[2018-12-31] MEDS ORDERED: [UNRECOGNIZED DRUG - OTHER] PO SCH (12:00)
[2018-12-31] MEDS ORDERED: FOLIC PO SCH (12:00)
[2018-12-31] MEDS ORDERED: MULTIVITAMINS, THERA 1 EACH TAB PO SCH (12:00)
== END 2018-12-31 11:40 | disposition home or self-care (01) ==
LOC: EC 06:21 → 1SOBS 09:20 → 3NMEDONC 18:00
PROVIDERS: ADMIT Internal Medicine; ATTEND Internal Medicine
DX: K52.9 Noninfective gastroenteritis and colitis, unspecified (principal); R07.89 Other chest pain; E03.9 Hypothyroidism, unspecified; E78.5 Hyperlipidemia, unspecified; G89.29 Other chronic pain; I10 Essential (primary) hypertension; K21.9 Gastro-esophageal reflux disease without esophagitis; J44.9 Chronic obstructive pulmonary disease, unspecified; M79.7 Fibromyalgia; N17.9 Acute kidney failure, unspecified; K58.0 Irritable bowel syndrome with diarrhea; M54.32 Sciatica, left side; M54.31 Sciatica, right side; E72.12 Methylenetetrahydrofolate reductase deficiency; M51.36 Other intervertebral disc degeneration, lumbar region; E66.9 Obesity, unspecified; Z68.42 Body mass index [BMI] 45.0-49.9, adult; E27.40 Unspecified adrenocortical insufficiency; Z79.01 Long term (current) use of anticoagulants; Z79.51 Long term (current) use of inhaled steroids; Z79.890 Hormone replacement therapy; Z79.899 Other long term (current) drug therapy; Z86.711 Personal history of pulmonary embolism; Z87.891 Personal history of nicotine dependence; Z90.49 Acquired absence of other specified parts of digestive tract; Z96.1 Presence of intraocular lens; Z86.19 Personal history of other infectious and parasitic diseases; Z80.0 Family history of malignant neoplasm of digestive organs; Z82.49 Family history of ischemic heart disease and other diseases of the circulatory system; Z82.5 Family history of asthma and other chronic lower respiratory diseases
CPT/HCPCS: 96361 ×3; 96375 ×2; 96376; 96372; 96374; 99285; 36415; 94640 ×4; 94760; 93005; 80053; 80048; 83735; 84484; 85025; 85610; 85730; 71046; 74018; G0378 ×2; J2270; J0500; J2405; C9113

== ENCOUNTER 2019-01-07 14:58 | Emergency (ER) | payer MEDICARE, BC ==
[2019-01-07 15:02] VITALS: RESP 20
[2019-01-07] MEDS ORDERED: MORPHINE SULFATE 2 MG/ML SYRINGE IVP STA (15:19)
--- NOTE | 2019-01-07 15:19 | ED ---
General Adult HPI - General Chief complaint: Extremity Injury, Lower Stated complaint: kicked in leg by horse Time Seen by Provider: 01/07/19 15:07 Source: patient Mode of arrival: wheelchair Limitations: no limitations - History of Present Illness Initial comments: Dictation was produced using [employer] dictation software. please excuse any grammatical, word or spelling errors. Chief Complaint: 68-year-old female with past medical history of pulmonary emboli on Xarelto presents after being kicked in the bilateral lower extremities by admitting orders. History of Present Illness: 68-year-old female. She was kicked by a mini horse approximately 4 hours prior to arrival. Patient states she is on Xarelto. She's been on Xarelto for several months after being diagnosed with pulmonary emboli. She has multiple comorbidities and is on multiple medications. Patient states she was ambulatory after the accident. Since then she's been having progressive bilateral lower extremity pain. She checked her pants when she was at home noticed that her right lower extremity was extremely swollen. Patient does report some mild Pain with ambulation. The ROS documented in this emergency department record has been reviewed and confirmed by me. Those systems with pertinent positive or negative responses have been documented in the HPI. All other systems are other negative and/or noncontributory. PHYSICAL EXAM: General Impression: Alert and oriented x3, not in acute distress HEENT: Normocephalic atraumatic, extra-ocular movements intact, pupils equal and reactive to light bilaterally, mucous membranes moist. Cardiovascular: Heart regular rate and rhythm, S1&S2 audible, no murmurs, rubs or gallops Chest: Lungs clear to auscultation bilaterally, no rhonchi, no wheeze, no rales Abdomen: Bowel sounds present, abdomen soft, non-tender, non-distended, no organomegaly Musculoskeletal: Pulses present and equal in all extremities, no peripheral edema Motor: no focal deficits noted Neurological: CN II-XII grossly intact, no focal motor or sensory deficits noted Skin: Intact with no visualized rashes Psych: Normal affect and mood Lower extremities: Extremely swollen right calf with bruising to the right medial thigh area and induration. There is also a smaller less extensive similarly appearing and palpable area to the left calf. No tenderness with manipulation of the right or left great toe. ED course:68-year-old female presents with bilateral calf pain after being struck by a mini horse. All signs upon arrival shows heart rate of 11, worse vital signs within acceptable limits. At this point there are no clinical signs of compartment syndrome however given that patient is on Xarelto there is some concern that patient has hematoma formation given the degree of swelling and induration at the area.Return evaluation obtained. CBC, metabolic panel is unremarkable. X-ray of the left tibia-fibula area shows no acute processes. CT of the right lower extremity was performed showing intramuscular hematoma measuring approximate 5 x 4 x 8 cm up extensively. Patient reevaluated. Clinical presentation consistent with compartment syndrome at this time. Discussed patient case in detail with Dr. Sy who is on-call for orthopedic surgery. He recommends patient be placed in Junior wrap and ice pack with elevated right lower extremity. Discussed with Dr. Sy that there is concern that patient may have developing compartment syndrome though not apparent at this moment. I believe patient should be observed with schedule compartment checks. He reports that if there is concern that she should be transferred to [facility] given that there is no Washta needle available in our hospital facility. Patient case with Dr. Elder of [facility] who is willing to accept the patient for transfer. Patient is understanding and agreeable to disposition. - Related Data Home Medications Medication Instructions Recorded Confirmed Fluticasone Propionate [Flovent 2 puff INHALATION RT-BID 10/19/14 12/30/18 Hfa 220MCG] Salmeterol Xinafoate [Serevent 1 puff INHALATION RT-BID 10/19/14 12/30/18 Diskus] Albuterol Inhaler [Ventolin Hfa 2 puff INHALATION RT-Q6H PRN 11/05/14 12/30/18 Inhaler] Calcium Carbonate/Vitamin D3 1 tab PO BID 06/25/15 12/30/18 [Calcium 600-Vit D3 400 Tablet] Cetirizine HCl [Zyrtec] 10 mg PO DAILY 01/27/16 12/30/18 Esomeprazole Magnesium [NexIUM] 40 mg PO QAM 04/05/16 12/30/18 Multivitamin [Multivitamins Adult 1 tab PO DAILY 05/07/16 12/30/18 Gummies] Azithromycin [Zithromax] 250 mg PO MOWEFR 08/08/16 12/30/18 Vit C/E/Zn/Coppr/Lutein/Zeaxan 1 cap PO BID 01/09/17 12/30/18 [Preservision Areds 2 Softgel] Ubidecarenone [Co Q-10] 200 mg PO HS 02/24/17 12/30/18 Multivit-Min/Iron/Folic/Mrt892 2 tab PO DAILY@1200 03/31/17 12/30/18 [Hair, Skin and Nails Tablet] Rivaroxaban [Xarelto] 10 mg PO DAILY 08/27/17 12/30/18 Ipratropium-Albuterol Nebulize 3 ml INHALATION RT-QID PRN 05/28/18 12/30/18 [Duoneb 0.5 mg-3 mg/3 ml Soln] Benzonatate [Tessalon Perles] 100 mg PO TID PRN 06/27/18 12/30/18 Cholecalciferol [Vitamin D3] 1,000 unit PO DAILY 06/27/18 12/30/18 Dulcoease 100 mg PO DAILY PRN 06/27/18 12/30/18 Levothyroxine Sodium [Synthroid] 112 mcg PO QAM 06/27/18 12/30/18 Magnesium Gluconate [Magonate] 500 mg PO DAILY 06/27/18 12/30/18 Rosuvastatin Calcium [Crestor] 5 mg PO DAILY 06/27/18 12/30/18 Vitamin C Gummies 250 mg PO BID 06/27/18 12/30/18 Hydrocortisone [Cortef] 15 mg PO QAM 10/14/18 12/30/18 Hydrochlorothiazide 25 mg PO QAM 10/31/18 12/30/18 Losartan Potassium 100 mg PO QAM 10/31/18 12/30/18 Diltiazem Cd [Cardizem CD] 180 mg PO DAILY 12/09/18 12/30/18 tiZANidine HCL [Zanaflex] 4 mg PO HS PRN 12/15/18 12/30/18 Previous Rx's Medication Instructions Recorded Gabapentin [Neurontin] 100 mg PO BID #120 cap 12/09/18 oxyCODONE-APAP 7.5-325MG [Percocet 1 tab PO DAILY PRN 30 Days #30 tab 12/09/18 7.5-325 mg] Hydrocortisone [Cortef] 10 mg PO 1600 #0 12/31/18 Allergies Allergy/AdvReac Type Severity Reaction Status Date / Time cefuroxime axetil Allergy Dyspnea Verified 01/07/19 17:56 [From Ceftin] moxifloxacin HCl Allergy Dyspnea Verified 01/07/19 17:56 [From Avelox] Penicillins Allergy Dyspnea Verified 01/07/19 17:56 rofecoxib [From Vioxx] Allergy Dyspnea Verified 01/07/19 17:56 blackberry Allergy Rash/Hives Uncoded 01/07/19 15:02 Review of Systems ROS Statement: Those systems with pertinent positive or pertinent negative responses have been documented in the HPI. ROS Other: All systems not noted in ROS Statement are negative. 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), palpitations, MTHFR gene, multiple PEs, adrenal insufficiency, IBS, benign colon polyps, hiatal hernia, macular degeneration with L eye worse, stuccokeratosis, past L foot and R ankle fractures, chronic back pain and bilateral sciatica L side worse, lumbar DDD, migraines, osteoporosis History of Any Multi-Drug Resistant Organisms: None Reported Past Surgical History: Section, Cholecystectomy, Heart Catheterization, Orthopedic Surgery, Tonsillectomy Additional Past Surgical History / Comment(s): R ankle plate/screws, L wrist carpal tunnel release, multiple bronchoscopies, bronchial thermoplasty x3, EGDs, colonoscopies/polypectomy, deviated septal surgery, [facility] pain clinic procedures, PICC, bilateral cataract removals/lens implants. Past Anesthesia/Blood Transfusion Reactions: No Reported Reaction Additional Past Anesthesia/Blood Transfusion Reaction / Comment(s): Pt has never received blood. DAUGHTER PONV Past Psychological History: No Psychological Hx Reported Smoking Status: Former smoker Past Alcohol Use History: None Reported Past Drug Use History: None Reported - Past Family History Father Family Medical History: Cancer Additional Family Medical History / Comment(s): Father from colon cancer at the age of 65yrs. Mother Family Medical History: Congestive Heart Failure (CHF), COPD Additional Family Medical History / Comment(s): Mother lived to be 80 yrs old. Daughter(s) Family Medical History: Deep Vein Thrombosis (DVT) General Exam Limitations: no limitations Course Vital Signs 01/07/19 01/07/19 14:59 17:02 Temperature 98.7 F Pulse Rate 101 H 95 Respiratory 20 20 Rate Blood Pressure 132/77 118/58 O2 Sat by Pulse 95 98 Oximetry Medical Decision Making - Lab Data Result diagrams: 01/07/19 15:35 01/07/19 15:35 Lab Results 01/07/19 01/07/19 Range/Units 15:35 15:35 WBC 9.2 (3.8-10.6) k/uL RBC 4.12 (3.80-5.40) m/uL Hgb 12.0 (11.4-16.0) gm/dL Hct 37.5 (34.0-46.0) % MCV 91.0 (80.0-100.0) fL MCH 29.1 (25.0-35.0) pg MCHC 31.9 (31.0-37.0) g/dL RDW 14.3 (11.5-15.5) % Plt Count 245 (150-450) k/uL Neutrophils % 79 % Lymphocytes % 12 % Monocytes % 6 % Eosinophils % 1 % Basophils % 0 % Neutrophils # 7.3 (1.3-7.7) k/uL Lymphocytes # 1.1 (1.0-4.8) k/uL Monocytes # 0.5 (0-1.0) k/uL Eosinophils # 0.0 (0-0.7) k/uL Basophils # 0.0 (0-0.2) k/uL Sodium 138 (137-145) mmol/L Potassium 4.7 (3.5-5.1) mmol/L Chloride 106 (98-107) mmol/L Carbon Dioxide 24 (22-30) mmol/L Anion Gap 8 mmol/L BUN 35 H (7-17) mg/dL Creatinine 1.32 H (0.52-1.04) mg/dL Est GFR (CKD-EPI)AfAm 48 (>60 ml/min/1.73 sqM) Est GFR (CKD-EPI)NonAf 42 (>60 ml/min/1.73 sqM) Glucose 104 H (74-99) mg/dL Calcium 9.2 (8.4-10.2) mg/dL Disposition Clinical Impression: Intramuscular hematoma Disposition: OTHER INSTITUTION NOT DEFINED Condition: Fair Referrals: Karli Wallace MD [Primary Care Provider] - 1-2 days Time of Disposition: 18:01 - Out of Hospital Transfer - Req. Specs Out of Hospital Transfer - Requested Specifics: Other Emergency Center ([facility])
--- NOTE | 2019-01-07 15:41 | XR ---
EXAMINATION TYPE: XR tibia fibula LT DATE OF EXAM: 01/07/2019 COMPARISON: NONE HISTORY: Pain TECHNIQUE: Two views are submitted. FINDINGS: The osseous structures are intact. The joint spaces are preserved. Diffuse osteopenia. Calcaneal sp ur noted. IMPRESSION: 1. No acute osseous abnormality.
[2019-01-07 15:54] LABS: Basophils % (A) 0 %; Eosinophils % (A) 1 %; HCT 37.5 % (34.0-46.0); Lymphocytes # (A) 1.1 k/uL (1.0-4.8); Lymphocytes % (A) 12 %; MCH 29.1 pg (25.0-35.0); MCHC 31.9 g/dL (31.0-37.0); Monocytes # (A) 0.5 k/uL (0-1.0); Monocytes % (A) 6 %; Neutrophils # (A) 7.3 k/uL (1.3-7.7); Neutrophils % (A) 79 %; Platelet Count 245 k/uL (150-450); RBC 4.12 m/uL (3.80-5.40); RDW 14.3 % (11.5-15.5); WBC 9.2 k/uL (3.8-10.6)
[2019-01-07 16:08] LABS: Calcium 9.2 mg/dL (8.4-10.2); Potassium 4.7 mmol/L (3.5-5.1)
--- NOTE | 2019-01-07 16:47 | CT ---
EXAMINATION TYPE: CT lower extremity RT wo con DATE OF EXAM: 01/07/2019 COMPARISON: None HISTORY: Trauma today. Kicked by horse per patient. Bruising to entire lower leg CT DLP: 237.4 mGycm Automated exposure control for dose reduction was used. FINDINGS: Multiple axial sections were obtained from the distal femur to the bottom of the calcaneus with no co ntrast. There is a plate with screws fixing the distal fibula. There is a screw affixing the medial malleolus . There is mild spurring of the femoral and tibial condyles. The knee joint is intact. The tibia and fibula appear intact. Ankle mortise is anatomic. The subtalar joint appears normal. Calcaneus and regine us appear intact. There is subcutaneous density around the lateral lower leg consistent with bruising . There is a rounded 4.5 x 3.5 X 8 cm mixed density area involving the anterior lateral aspect of the mid lower leg consistent with intramuscular hematoma. I see no tibia or fibula acute fracture. IMPRESSION: INTRAMUSCULAR HEMATOMA ON THE ANTERIOR LATERAL ASPECT OF THE LOWER LEG. SUBCUTANEOUS EDEMA AND BRUISI NG. NO ACUTE FRACTURE SEEN.
[2019-01-07 17:13] VITALS: PULSE 95
[2019-01-07 18:43] VITALS: BP 161/83; TEMP 98.2
== END 2019-01-07 18:41 | disposition short-term general hospital (02) ==
LOC: EC 14:58
DX: S80.11XA Contusion of right lower leg, initial encounter (principal); S70.11XA Contusion of right thigh, initial encounter; S80.12XA Contusion of left lower leg, initial encounter; J44.9 Chronic obstructive pulmonary disease, unspecified; E07.9 Disorder of thyroid, unspecified; E27.40 Unspecified adrenocortical insufficiency; M19.90 Unspecified osteoarthritis, unspecified site; Z87.891 Personal history of nicotine dependence; Z88.0 Allergy status to penicillin; Z88.1 Allergy status to other antibiotic agents; Z88.6 Allergy status to analgesic agent; Z91.018 Allergy to other foods; Z79.01 Long term (current) use of anticoagulants; Z79.51 Long term (current) use of inhaled steroids; Z79.52 Long term (current) use of systemic steroids; Z79.890 Hormone replacement therapy; Z79.899 Other long term (current) drug therapy; Z86.010 Personal history of colon polyps; Z87.01 Personal history of pneumonia (recurrent); Z86.711 Personal history of pulmonary embolism; Z86.79 Personal history of other diseases of the circulatory system; Z87.81 Personal history of (healed) traumatic fracture; Z96.698 Presence of other orthopedic joint implants; Z95.818 Presence of other cardiac implants and grafts; Z98.890 Other specified postprocedural states; W55.12XA Struck by horse, initial encounter
CPT/HCPCS: 36415; 80048; 85025; 73590; 73700; 99285; 96374; J2270

== ENCOUNTER → 2019-01-13 | Day surgery (SDC) | payer MEDICARE, BC ==
[2019-01-12 09:55] VITALS: BMI 48.4
[~2019-01-13] MED LIST changes: +IV FLUID CONTINUATION 1,000 ML IV ONE; +LACTATED RINGERS 1,000 ML IV SCH; -SODIUM CHLORIDE 0.9% 500 ML 500 ML IV SCH
[2019-01-13 08:51] LABS: Glucose,Whole Blood 112 mg/dL (75-99)
[2019-01-13 08:52] VITALS: RESP 16; TEMP 97.1
--- NOTE | 2019-01-13 09:36 | P.PCN ---
Date of Procedure: 01/13/19 Procedure(s) Performed: PREOPERATIVE DIAGNOSIS: 1- Lumbar Degenerative Disc Diseases 2-Lumbar spondylosis with Facet arthropathy without myelopathy. 3-lumbar radiculopathy. POSTOPERATIVE DIAGNOSIS: 1-Lumber Degenerative Disc Diseases 2-Lumbar spondylosis with Facet arthropathy without myelopathy. 3-lumbar radiculopathy PROCEDURE 1. Lumbar epidural steroid injection under fluoroscopic guidance at the L5-S1 level. 2. Lumbar epidurogram. ANESTHESIA: Local with 1% lidocaine 3 ml and , moderate sedation with intravenous Versed 2 mg ,and fentanyle 100 Mcg EBL: Minimal PROCEDURE INDICATION: The patient with low back pain and radiculitis symptoms unresponsive to conservative treatment. Fluoroscopy was used to optimize visualization of the needle placement and to maximize safety. PROCEDURE DESCRIPTION / TECHNIQUE: The patient was seen and identified in the preoperative area. Risks, benefits, complications including but not limited to infections ,bleeding ,allergic reaction to the medications ,nerve damage and not complete pain releife , and alternatives were discussed with the patient. The patient agreed to proceed with the procedure and signed the consent. IV was started, and vital signs were stable. Patient was taken to the OR and time out was completed. The patient was placed in the prone position on procedure table and a pillow was placed under the abdomen to reduce lumbar lordosis. The lumbosacral area was prepped and draped in the usual sterile fashion.ere closely monitored during the procedure. Conscious sedation was used during the procedure to decrease patients anxiety. Vital signs was monitered during the entire procedure. Using anterior-posterior fluoroscopy, the L5-S1 interlaminar space was identified and the skin over this site was marked and then infiltrated with 1% lidocaine subcutaneously. Subsequently, a 18-gauge 6 inches Tuohy epidural needle was inserted and advanced toward the epidural space using the ``Loss of resistance technique and guided by AP and lateral fluoroscopy. The correct needle position in the epidural space was verified with the injection of 2 mL of the water soluble contrast dye Isovue 200 contrast and observing an excellent epidurogram with the epidural spread of the dye, after negative aspiration for blood and CSF and in the absence of paresthesias. Again after negative aspiration, a 6 ml mixture containing 80 mg of Depo-medrol , and 2 ml of preservative free Normal Saline, and 2 ml of preservative free lidocaine 1% solution was injected and a washout of epidurogram was seen. Needle was withdrawn intact, skin was cleansed, and bandages were applied. COMPLICATIONS: None DISPOSITION / PLANS: The patient was placed in a supine position and transferred to the recovery area in a stable condition for observation. There was no evidence of lower extremity motor or sensory deficit after the procedure. Patient was discharged from the recovery room after meeting discharge criteria. Home discharge instructions were given to the patient by the staff. The patient was reexamined prior to discharge. The patient will schedule a follow up in the clinic in 2-4 weeks.
--- NOTE | 2019-01-13 09:47 | FL ---
EXAMINATION TYPE: FL guided pain mgmt statistic DATE OF EXAM: 01/13/2019 HISTORY: Pain Lumbar epidural. 1sec fluoro time.
[2019-01-13 10:03] VITALS: BP 104/66; PULSE 75
== END ==
LOC: ORPAIN 07:40
PROVIDERS: ATTEND Specialist
DX: M51.16 Intervertebral disc disorders with radiculopathy, lumbar region (principal); M47.26 Other spondylosis with radiculopathy, lumbar region; J44.9 Chronic obstructive pulmonary disease, unspecified; Z86.711 Personal history of pulmonary embolism; Z79.01 Long term (current) use of anticoagulants; Z88.6 Allergy status to analgesic agent; Z88.1 Allergy status to other antibiotic agents; Z88.0 Allergy status to penicillin
CPT/HCPCS: 62323; J2250; J1030; J3010; Q9966; 99152

== ENCOUNTER → 2019-02-03 | Outpatient (CLI) | payer MEDICARE, BC ==
[2019-02-03 15:01] VITALS: BP 129/86; PULSE 107; RESP 18
--- NOTE | 2019-02-03 15:58 | P.PAINPG ---
Subjective Progress Note Date: 02/03/19 This is follow-up visit for this patient with a history of severe and chronic low back pain secondary to lumbar degenerative disc disease, lumbar facet arthropathy, Recently we have done lumbar epidural steroid injections and she reported that the pain improved significantly, previously we have done RFA of the medial branch lumbar area Currently she is complaining of severe low back pain with radiation to the lower extremity , she feels lower extremity weak, she is wheelchair bound, The patient currently on Percocet 7.5/325 once a day and Neurontin 100 mg 2 tablet twice a day ( she is using Xeralto because of PE ) Patient denies any side effect of the medication , patient denies any excessive drowsiness or sleepiness, patient denies any suicidal ideation, Patient reported that the current medication is helping to control the pain and improve the activity of daily livings, , denies any change in the bowel movement or urination, patient denies any fever or night sweats. Patient here today for follow-up visit and medication refill Physical Examinations : -Constitutiona : Cooperative , not in acute distress . -HEENT : nech ; supple , no Lymphadenopathy , normal thyroid size . eyes : no ptosis , no icterus, no photophobia . -Musculoskeletal Lumber spine moter stegnth lower extremities ,thigh and legs 3-4/5 Right side , 3-4/5 Left side deep tendon reflexes : normal Knee Jerk , normal ankle Jerk positive lumber facet Loading Test Range of motion of the lumbar spine Flexion 30 degrees, extension 10 degrees strait leg raising test , positive at 30 degree Fabere test positive RT and positive LT . Multiple trigger points identified in the lumbar paravertebral muscles Assessment and plan= chronic low back pain secondary to lumbar degenerative disc disease , lumbar spondylosis with lumbar facet arthropathy . Myofascial pain syndrome lumbar area chronic and current use of high-risk medication (opioids) Patient denies any side effects of the current pain medication and the current treatment/medication helping the patient to do activity of daily living , Diagnoses, prognosis, treatment options, including but not limited to physical therapy, medication management, interventional therapies, and surgery, were discussed with the patient All the questions answered The narcotic consent was signed and patient agreed and understood the side effects and complications of opioid treatment. Patient signed the narcotic agreement, and was orally counseled, not to overuse, not to abuse, not to Divert , not tp sell pain medication, and to take it as prescribed only, Patient was counseled not to drive or operate heavy equipment while using narcotic medication, and advised not to use alcohol or any Illicit drugs while using the narcotis, understanding that lack of compliance with any of the above instructions, will likely to cause discharge from, the pain service, not to renew his narcotic prescriptions MAPS Reviwed and it was apropriate . Medication managements= patient will be given prescription refills for Percocet 7.5/325 dispense 30 with one refill, continue Neurontin 100 mg 2 tablet twice a day She could benefit from Flexeril 5 mg daily at bedtime, , Objective - Vital Signs Vital signs: Vital Signs Temp Pulse 107 H 02/03/19 14:52 Resp 18 02/03/19 14:52 BP 129/86 02/03/19 14:52 Pulse Ox 95 02/03/19 14:52 Intake & Output 02/02/19 02/03/19 02/03/19 18:59 06:59 18:59 Weight 108.862 kg PQRS Measure Charge Sheet Measure #130: Documentation of Current Meds in Medical Chart: Patient's medications documented in chart Measure #226: Tobacco Use: Screen & Cessation Intervention: Pt not a tobacco user Measure #111: Pneumonia Vaccination: Pneumococcal vaccine administered or previously received Measure #47: Advance Care Plan: Advance care planning discussed & documented, pt chose/unable to give Measure #412: Opioid Treatment Agreement: Documented signed opioid trtmnt agreemnt min once during opioid trtmnt Measure #408: Opioid Therapy Follow-up Evaluation: Patient had f/u eval minimum every 3 months during opioid therapy Measure #317: Preventitive Care & Scrn High Bld Press & F/U: Normal blood pressure, f/u not required Measure #128: Body Mass Index (BMI) Screening & Follow-up: BMI documented ABOVE normal parameters - f/u documented Measure #131: Pain Assessment & Follow-up: Pain positive & plan documented, Follow-up scheduled Measure #431: Unhealthy Alcohol Use Preventative Care & Scrn: Patient not identified as an unhealthy alcohol user PQRS Narrative: Smoking Status Former smoker Do You Want the Pneumonia Vaccine Up to Date Vaccine AT THIS TIME? Narcotic Agreement Date Signed 04/05/16 Blood Pressure 129/86 Pain Intensity [Left Lower 7 Back] Scale Used Numeric (1 - 10) Hx Alcohol Use (MH) No Home Medications: Ambulatory Orders Fluticasone Propionate [Flovent Hfa 220MCG] 2 puff INHALATION RT-BID 10/19/14 Salmeterol Xinafoate [Serevent Diskus] 1 puff INHALATION RT-BID 10/19/14 Albuterol Inhaler [Ventolin Hfa Inhaler] 2 puff INHALATION RT-Q6H PRN 11/05/14 Calcium Carbonate/Vitamin D3 [Calcium 600-Vit D3 400 Tablet] 1 tab PO BID 06/25/15 Cetirizine HCl [Zyrtec] 10 mg PO DAILY 01/27/16 Esomeprazole Magnesium [NexIUM] 40 mg PO QAM 04/05/16 Multivitamin [Multivitamins Adult Gummies] 1 tab PO DAILY 05/07/16 Azithromycin [Zithromax] 250 mg PO MOWEFR 08/08/16 Vit C/E/Zn/Coppr/Lutein/Zeaxan [Preservision Areds 2 Softgel] 1 cap PO BID 01/09/17 Ubidecarenone [Co Q-10] 200 mg PO HS 02/24/17 Multivit-Min/Iron/Folic/Kso519 [Hair, Skin and Nails Tablet] 2 tab PO DAILY@1200 03/31/17 Rivaroxaban [Xarelto] 10 mg PO DAILY 08/27/17 Ipratropium-Albuterol Nebulize [Duoneb 0.5 mg-3 mg/3 ml Soln] 3 ml INHALATION RT-QID PRN 05/28/18 Ascorbic Acid [Vitamin C] 250 mg PO DAILY #0 06/27/18 Benzonatate [Tessalon Perles] 100 mg PO TID PRN 06/27/18 Bisacodyl [Dulcolax] 100 mg PO DAILY PRN #0 06/27/18 Cholecalciferol [Vitamin D3] 1,000 unit PO DAILY 06/27/18 Levothyroxine Sodium [Synthroid] 112 mcg PO QAM 06/27/18 Magnesium Gluconate [Magonate] 500 mg PO DAILY 06/27/18 Rosuvastatin Calcium [Crestor] 5 mg PO DAILY 06/27/18 Hydrochlorothiazide 25 mg PO QAM 10/31/18 Losartan Potassium 100 mg PO QAM 10/31/18 Diltiazem Cd [Cardizem CD] 180 mg PO 1200 12/09/18 oxyCODONE-APAP 7.5-325MG [Percocet 7.5-325 mg] 1 tab PO DAILY PRN 30 Days #30 tab 12/09/18 Hydrocortisone [Cortef] 10 mg PO HS 01/07/19 Hydrocortisone [Cortef] 15 mg PO QAM 01/07/19 Gabapentin [Neurontin] 200 mg PO BID 01/12/19 Controlled Substance Measures - Controlled Substance Measures Is patient prescribed a controlled substance at discharge?: Yes When asked, does pt state using other controlled substances?: No If prescribed controlled substance>3 days was MAPS reviewed?: Yes If Rx opioid, was Start Talking consent form obtained?: Yes If opioid is for acute pain is fill amount 7 days or less?: No Was information provided regarding opioid addiction?: Yes
== END ==
LOC: PNWHC3 13:42
PROVIDERS: ATTEND Specialist
DX: G89.29 Other chronic pain (principal); M51.36 Other intervertebral disc degeneration, lumbar region; M47.816 Spondylosis without myelopathy or radiculopathy, lumbar region; M46.96 Unspecified inflammatory spondylopathy, lumbar region; M79.18 Myalgia, other site; Z79.891 Long term (current) use of opiate analgesic; Z79.899 Other long term (current) drug therapy; Z87.891 Personal history of nicotine dependence; Z79.2 Long term (current) use of antibiotics
CPT/HCPCS: 99211

== ENCOUNTER → 2019-02-19 | Outpatient (CLI) | payer MEDICARE, BC ==
--- NOTE | 2019-02-19 10:38 | FL ---
EXAMINATION TYPE: FL barium swallow DATE OF EXAM: 02/19/2019 CLINICAL HISTORY: Dysphasia TECHNIQUE: A single contrast esophagram is performed utilizing barium. A total of 53 seconds of fl uoroscopic time was utilized during procedure. 10 images submitted. COMPARISON: None FINDINGS: The esophagus shows normal emptying into the stomach. There are diffuse tertiary contractio ns of esophagus compatible dysmotility. No esophageal stricture. No obstruction. Small hiatal hernia noted. No significant gastroesophageal reflux was seen during real time performance of this study. IMPRESSION: 1. Diffuse tertiary contractions of esophagus compatible with dysmotility. 2. Small hiatal hernia.
== END ==
LOC: RADFLWHC 09:52
PROVIDERS: ATTEND Otolaryngology
DX: K44.9 Diaphragmatic hernia without obstruction or gangrene (principal); K22.8 Other specified diseases of esophagus
CPT/HCPCS: 74220

== ENCOUNTER 2019-04-02 11:03 | Day surgery (SDC) | payer MEDICARE, BC ==
[2019-04-01 10:26] VITALS: BMI 46.4
[~2019-04-02 11:03] MED LIST changes: +ALBUTEROL NEB (CONC) 2.5 MG/0.5 ML INHALATION ONE; +ATROPINE SULFATE 0.4 MG/ML 1 ML VIAL IM ONE; -IV FLUID CONTINUATION 1,000 ML IV ONE; -LACTATED RINGERS 1,000 ML IV SCH; +LIDOCAINE 2% (PF) 20 MG/ML 5 ML VIAL INHALATION ONE; +LIDOCAINE VISCOUS 300 MG/15 ML CUP MUCOUS MEM ONE; +SODIUM CHLORIDE 0.9% 1,000 ML IV SCH
[2019-04-02] MEDS ORDERED: LIDOCAINE 1% 20 ML VIAL (10MG/ML) FOR IV START INTRADERMA ONE (12:00)
[2019-04-02] MEDS ORDERED: LACTATED RINGERS 1,000 ML IV ONE (12:02)
[2019-04-02 12:21] VITALS: TEMP 97.4
[2019-04-02] MEDS ORDERED: PROPOFOL 10 MG/ML 20 ML VIAL IV ONE (12:34)
[2019-04-02] MEDS ORDERED: LIDOCAINE 2% INJ 20 MG/ML INTRATRACH ONE (12:48)
[2019-04-02 13:11] VITALS: BP 101/68; PULSE 98; RESP 18
--- NOTE | 2019-04-02 13:14 | PCN ---
PROCEDURE NOTE PROCEDURE: Bronchoscopy, airway examination, therapeutic lavage, BAL. PREOPERATIVE DIAGNOSIS: Severe chronic bronchial asthma, retained secretions. POSTOPERATIVE DIAGNOSIS: Severe chronic bronchial asthma, retained secretions. SENIOR MOBILE DEVELOPER: Dr. Snider and Dr. Cooley. PROCEDURE: There was informed consent and universal timeout. Anesthesia provided general anesthesia/unconscious sedation. After the patient was being properly monitored and sedated by the anesthesiologist/PUBLIC HEALTH INFORMATICIAN, the bronchoscope was inserted through the right nostril. It passed through the right nasopharynx into the oropharynx. The hypopharynx was evaluated and topicalized. The structures in the hypopharynx including anterior commissure, true cords, false cords, arytenoids, piriform sinuses, right and left vallecula and epiglottis all appeared relatively normal save for a small little lesion on the left vocal cord. A picture was taken. Next, after topicalization of the glottic opening, the bronchoscope was pushed through the glottic opening into the trachea. Trachea appeared relatively normal. Tracheal luz elena was sharp. There were some secretions noted within the trachea. They were suctioned. The right and left mainstem were topicalized. Of note was the fact that the patient did have significant tracheobronchomalacia. There was no dominant mass or tumor. The right upper lobe and its 3 segments, right middle lobe and its 2 segments, right lower lobe and its 5 segments, left upper lobe proper and its 2 segments, lingula and its 2 segments and left lower lobe and its 4 segments all had similar findings of diffuse airway erythema and hyperemia. There were thick secretions noted. They were suctioned. There was some mucosal friability. No dominant mass. The bronchoscope was then wedged into the right middle lobe. The BAL took place. The patient tolerated the procedure well. Additional saline was used to suction additional secretions. The patient tolerated the procedure well and when completed, the bronchoscope was withdrawn. The patient will be recovered. There was no immediate complication. MMODL / IJN: [id number] /
[2019-04-02 20:50] LABS: Appearance,BF Hazy; Nucleated Cells, Body Fluid 66 /uL; RBC, Body Fluid 361 /uL
[2019-04-02 20:52] LABS: Mononuclear WBC,Body Fluid 56 %; Polynuclear WBC,Body Fluid 44 %; Total Cells Counted,Body Fluid 100
== END 2019-04-02 13:31 | disposition home or self-care (01) ==
LOC: ORWHC2ENDO 11:03
PROVIDERS: ATTEND Internal Medicine Critical Care Medicine
DX: J45.50 Severe persistent asthma, uncomplicated (principal); J44.9 Chronic obstructive pulmonary disease, unspecified; I10 Essential (primary) hypertension; I34.1 Nonrheumatic mitral (valve) prolapse; E27.2 Addisonian crisis; E78.2 Mixed hyperlipidemia; E03.9 Hypothyroidism, unspecified; H35.30 Unspecified macular degeneration; Q32.2 Congenital bronchomalacia; K21.9 Gastro-esophageal reflux disease without esophagitis; M81.0 Age-related osteoporosis without current pathological fracture; M79.7 Fibromyalgia; Z79.899 Other long term (current) drug therapy; Z79.2 Long term (current) use of antibiotics; Z79.891 Long term (current) use of opiate analgesic; Z79.51 Long term (current) use of inhaled steroids; Z79.890 Hormone replacement therapy; Z80.0 Family history of malignant neoplasm of digestive organs; Z87.891 Personal history of nicotine dependence; Z90.49 Acquired absence of other specified parts of digestive tract; Z79.01 Long term (current) use of anticoagulants; Z86.19 Personal history of other infectious and parasitic diseases; Z88.0 Allergy status to penicillin; Z88.8 Allergy status to other drugs, medicaments and biological substances; Z88.1 Allergy status to other antibiotic agents; Z88.6 Allergy status to analgesic agent; Z86.711 Personal history of pulmonary embolism
CPT/HCPCS: 94640; 87798 ×3; 87496; 87498; 87529; 88108; 88305; 89050; 87252; 87502; 87634; 87070; 87205; 87116; 87102; 87206; 87299; 31624; J2001 ×2; J0461; J2704

== ENCOUNTER → 2019-04-15 | Day surgery (SDC) | payer MEDICARE, BC ==
[2019-04-13 09:14] VITALS: BMI 46.4
[~2019-04-15] MED LIST changes: -ALBUTEROL NEB (CONC) 2.5 MG/0.5 ML INHALATION ONE; -ATROPINE SULFATE 0.4 MG/ML 1 ML VIAL IM ONE; +DEXAMETHASONE SOD PHOSPHATE 10 MG/ML 1 ML VIAL IV ONE; +DEXAMETHASONE SOD PHOSPHATE 4 MG/ML 1 ML VIAL IV ONE; +FAMOTIDINE 20 MG/2 ML VIAL IV ONE; +HYDROCORTISONE SUCCINATE 100 MG/2 ML VIAL IVP ONE; +HYDROmorphone 0.5 MG/0.5 ML SYRINGE IVP PRN; +LACTATED RINGERS 1,000 ML IV ONE; +LACTATED RINGERS 1,000 ML IV SCH; +LIDOCAINE 1% 20 ML VIAL (10MG/ML) FOR IV START INTRADERMA PRN; +LIDOCAINE 1% INJ 10MG/ML (20 ML MDV) ONE; -LIDOCAINE 2% (PF) 20 MG/ML 5 ML VIAL INHALATION ONE; -LIDOCAINE VISCOUS 300 MG/15 ML CUP MUCOUS MEM ONE; +MIDAZOLAM 2 MG/2 ML VIAL ONE; +ONDANSETRON 4 MG/2 ML VIAL IVP ONE; +PROPOFOL 10 MG/ML 20 ML VIAL IV ONE; +Pre Op ABX Message 1 EACH MISC MISCELLANE ONE; -SODIUM CHLORIDE 0.9% 1,000 ML IV SCH; +SUCCINYLCHOLINE CHLORIDE 100 MG/5 ML SYR IV ONE; +ePHEDrine SULFATE/0.9% NACL/PF 50 MG/5 ML SYRINGE IV ONE; +fentaNYL (PF) 50 MCG/ML 2 ML AMP ONE
[2019-04-15 09:48] LABS: Glucose,Whole Blood 106 mg/dL (75-99)
--- NOTE | 2019-04-15 11:43 | P.OP ---
Date of Procedure: 04/15/19 Preoperative Diagnosis: Right vocal cord lesion Postoperative Diagnosis: Same Procedure(s) Performed: Microlaryngoscopy with excision right vocal cord lesion Anesthesia: TUA Surgeon: Dallas Díaz Estimated Blood Loss (ml): 1 Pathology: other (Right vocal cord lesion) Condition: stable Disposition: PACU Indications for Procedure: This is a 68-year-old white female with chronic hoarseness. She was noted to have a cystic appearing lesion of the right anterior true vocal cord Operative Findings: Small approximate 3 mm polypoid lesion right anterior true vocal cords although not to the anterior commissure Description of Procedure: The patient was brought in the operative suite and placed in a supine position. Patient underwent induction of general anesthesia with oral endotracheal intubation without difficulty. The patient was prepped and draped in usual aseptic fashion. The tooth guard was placed and rectal laryngoscopy was performed with systematic evaluation of the base of tongue vallecula both piriform sinuses post cricoid area and endolarynx. The laryngoscope was used in suspension and the microscope was brought into position to visualize the vocal cords through the Zeiss microscope. The small right anterior vocal cord lesion was then excised with up-biting cup forceps. 2 small specimens were sent. Hemostasis was gained spontaneously. The patient was suctioned in the larynx and laryngoscope and tooth guard were removed. The patient was allowed to emerge from anesthesia having tolerated procedure well was extubated in the operating suite and transferred to postop recovery area in satisfactory condition.
[2019-04-15 12:04] VITALS: TEMP 97
[2019-04-15 12:51] VITALS: RESP 17
[2019-04-15 13:08] VITALS: BP 95/58; PULSE 66
== END | disposition home or self-care (01) ==
LOC: OR 09:07
PROVIDERS: ATTEND Otolaryngology
DX: J38.1 Polyp of vocal cord and larynx (principal); R13.10 Dysphagia, unspecified; I10 Essential (primary) hypertension; E78.5 Hyperlipidemia, unspecified; E03.9 Hypothyroidism, unspecified; J44.9 Chronic obstructive pulmonary disease, unspecified; H26.9 Unspecified cataract; M79.7 Fibromyalgia; K58.9 Irritable bowel syndrome, unspecified; E27.40 Unspecified adrenocortical insufficiency; Z88.1 Allergy status to other antibiotic agents; Z88.0 Allergy status to penicillin; Z88.8 Allergy status to other drugs, medicaments and biological substances; K21.9 Gastro-esophageal reflux disease without esophagitis; Z90.49 Acquired absence of other specified parts of digestive tract; Z79.01 Long term (current) use of anticoagulants; Z79.890 Hormone replacement therapy; Z79.51 Long term (current) use of inhaled steroids; Z79.899 Other long term (current) drug therapy; Z87.891 Personal history of nicotine dependence
CPT/HCPCS: 88305

== ENCOUNTER 2019-05-20 07:42 | Day surgery (SDC) | payer MEDICARE, BC ==
[2019-05-14 16:29] VITALS: BMI 46.4
[~2019-05-20 07:42] MED LIST changes: -DEXAMETHASONE SOD PHOSPHATE 10 MG/ML 1 ML VIAL IV ONE; -DEXAMETHASONE SOD PHOSPHATE 4 MG/ML 1 ML VIAL IV ONE; -FAMOTIDINE 20 MG/2 ML VIAL IV ONE; -HYDROCORTISONE SUCCINATE 100 MG/2 ML VIAL IVP ONE; -HYDROmorphone 0.5 MG/0.5 ML SYRINGE IVP PRN; -LACTATED RINGERS 1,000 ML IV ONE; -LIDOCAINE 1% 20 ML VIAL (10MG/ML) FOR IV START INTRADERMA PRN; -LIDOCAINE 1% INJ 10MG/ML (20 ML MDV) ONE; -MIDAZOLAM 2 MG/2 ML VIAL ONE; -ONDANSETRON 4 MG/2 ML VIAL IVP ONE; -PROPOFOL 10 MG/ML 20 ML VIAL IV ONE; -Pre Op ABX Message 1 EACH MISC MISCELLANE ONE; -SUCCINYLCHOLINE CHLORIDE 100 MG/5 ML SYR IV ONE; -ePHEDrine SULFATE/0.9% NACL/PF 50 MG/5 ML SYRINGE IV ONE; -fentaNYL (PF) 50 MCG/ML 2 ML AMP ONE
[2019-05-20 08:56] VITALS: RESP 18; TEMP 98.6
[2019-05-20] MEDS ORDERED: LIDOCAINE 1% 20 ML VIAL (10MG/ML) FOR IV START INTRADERMA ONE (09:09)
[2019-05-20] MEDS ORDERED: IV FLUID CONTINUATION 1,000 ML IV ONE (09:36)
--- NOTE | 2019-05-20 09:36 | P.PCN ---
Date of Procedure: 05/20/19 Procedure(s) Performed: PREOPERATIVE DIAGNOSIS: Lumbar radicular pain or radicular POSTOPERATIVE DIAGNOSIS: Same PROCEDURE Lumbar epidural steroid injection under fluoroscopic guidance at the L5-S1 level. ANESTHESIA: Local with 1% lidocaine 3 ml; 100 sedation with 2/700 mg of fentanyl Proceduralist: Shannan Renee MD EBL: Minimal PROCEDURE INDICATION: Or radicular pain. PROCEDURE DESCRIPTION / TECHNIQUE: The patient was seen and identified in the preoperative area. Risks, benefits, complications including but not limited to infections ,bleeding ,allergic reaction to the medications ,nerve damage and not complete pain relief , and alternatives were discussed with the patient. The patient agreed to proceed with the procedure and signed the consent. IV was started, and vital signs were stable. Patient was taken to the OR and time out was completed. The patient was placed in the prone position on procedure table and a pillow was placed under the abdomen to reduce lumbar lordosis. The lumbosacral area was prepped and draped in the usual sterile fashion. The patient was closely monitored during the procedure. Conscious sedation was used during the procedure to decrease patients anxiety. Vital signs was monitored during the entire procedure. Using anterior-posterior fluoroscopy, the L5-S1 interlaminar space was identified and the skin over this site was marked and then infiltrated with 1% lidocaine subcutaneously. Subsequently, a 18-gauge 5 inch Tuohy epidural needle was inserted and advanced toward the epidural space using the loss of resistance technique and guided by AP and lateral fluoroscopy. The correct needle position in the epidural space was verified. After negative aspiration, a solution containing contrast was injected. The needle was withdrawn intact, skin was cleansed, and bandages were applied. COMPLICATIONS: None DISPOSITION / PLANS: The patient was returned to the supine position and transferred to the recovery area in a stable condition for observation. There was no evidence of lower extremity motor or sensory deficit after the procedure. Patient was discharged from the recovery room after meeting discharge criteria. Home discharge instructions were given to the patient by the staff. Follow up plan: In 7 weeks for medication management
[2019-05-20 09:54] VITALS: BP 100/65; PULSE 76
--- NOTE | 2019-05-20 10:01 | FL ---
EXAMINATION TYPE: FL guided pain mgmt statistic DATE OF EXAM: 05/20/2019 CLINICAL HISTORY: Low back pain. TECHNIQUE: Fluoroscopy. COMPARISON: None. FINDINGS: Fluoroscopic guidance was provided during pain relief procedure performed by Dr. Renee . A total of 5 seconds of fluoroscopic time was utilized during the procedure and 3 spot images are a cquired. Images acquired shows needle localization of the lumbosacral junction. IMPRESSION: As Above.
== END 2019-05-20 10:07 | disposition home or self-care (01) ==
LOC: ORPAIN 07:42
PROVIDERS: ATTEND Student in an Organized Health Care Education/Training Program
DX: M54.16 Radiculopathy, lumbar region (principal); Z79.01 Long term (current) use of anticoagulants
CPT/HCPCS: 62323; J2250; J1030; J3010; Q9966

== ENCOUNTER 2019-06-24 11:17 | Emergency (ER) | payer MEDICARE, BC ==
[2019-06-24 11:28] VITALS: RESP 18
[2019-06-24] MEDS ORDERED: LIDOCAINE 5% PATCH TOPICAL STA (12:12)
--- NOTE | 2019-06-24 12:26 | ED ---
General Adult HPI - General Chief complaint: Recheck/Abnormal Lab/Rx Stated complaint: poss blood clot lt leg Time Seen by Provider: 06/24/19 11:31 Source: family Mode of arrival: wheelchair Limitations: no limitations - History of Present Illness Initial comments: Dictation was produced using [employer] dictation software. please excuse any grammatical, word or spelling errors. Chief Complaint: 68-year-old female presents with left thigh pain. History of Present Illness: It is a 68-year-old female she presents today with left thigh pain. She was told to come to the emergency department by her primary care physician who wanted her to be evaluated for the venous thrombosis. Patient is on Xarelto currently or pulmonary embolus prophylaxis. Patient localizes her pain to the left lateral thigh. States is worse with movement. Denies any shortness of breath. Denies any swelling of the legs. The ROS documented in this emergency department record has been reviewed and confirmed by me. Those systems with pertinent positive or negative responses have been documented in the HPI. All other systems are other negative and/or noncontributory. PHYSICAL EXAM: General Impression: Alert and oriented x3, not in acute distress HEENT: Normocephalic atraumatic, extra-ocular movements intact, pupils equal and reactive to light bilaterally, mucous membranes moist. Cardiovascular: Heart regular rate and rhythm, S1&S2 audible, no murmurs, rubs or gallops Chest: Lungs clear to auscultation bilaterally, no rhonchi, no wheeze, no rales Abdomen: Bowel sounds present, abdomen soft, non-tender, non-distended, no organomegaly Musculoskeletal: Pulses present and equal in all extremities, no peripheral edema, tenderness to palpation over the left lateral thigh without any skin changes Motor: no focal deficits noted Neurological: CN II-XII grossly intact, no focal motor or sensory deficits noted Skin: Intact with no visualized rashes Psych: Normal affect and mood ED course: 68-year-old female presents with left lateral thigh pain. There is no pain over the deep venous system of the lower extremity. Patient is on Xarelto. No clinical concern for the venous thrombosis. Patient's pain is over the iliotibial band. As upon arrival are within acceptable limits. X-ray of the knee and hip show no acute processes. There is identifiable arthritic changes in the left knee. She Lidoderm patch. Patient clear for discharge told to follow-up with primary care physician. - Related Data Home Medications Medication Instructions Recorded Confirmed Salmeterol Xinafoate [Serevent 1 puff INHALATION RT-BID 10/19/14 06/24/19 Diskus] Albuterol Inhaler [Ventolin Hfa 2 puff INHALATION RT-Q6H PRN 11/05/14 06/24/19 Inhaler] Calcium Carbonate/Vitamin D3 1 tab PO BID 06/25/15 06/24/19 [Calcium 600-Vit D3 400 Tablet] Cetirizine HCl [Zyrtec] 10 mg PO DAILY 01/27/16 06/24/19 Esomeprazole Magnesium [NexIUM] 40 mg PO QAM 04/05/16 06/24/19 Vit C/E/Zn/Coppr/Lutein/Zeaxan 1 cap PO BID 01/09/17 06/24/19 [Preservision Areds 2 Softgel] Ubidecarenone [Co Q-10] 200 mg PO DAILY 02/24/17 06/24/19 Multivit-Min/Iron/Folic/Wkb283 1 tab PO DAILY 03/31/17 06/24/19 [Hair, Skin and Nails Tablet] Rivaroxaban [Xarelto] 10 mg PO DAILY 08/27/17 06/24/19 Ipratropium-Albuterol Nebulize 3 ml INHALATION RT-TID PRN 05/28/18 06/24/19 [Duoneb 0.5 mg-3 mg/3 ml Soln] Ascorbic Acid [Vitamin C] 250 mg PO DAILY #0 06/27/18 06/24/19 Benzonatate [Tessalon Perles] 100 mg PO TID PRN 06/27/18 06/24/19 Cholecalciferol [Vitamin D3 (25 1,000 unit PO DAILY 06/27/18 06/24/19 Mcg = 1000 Iu)] Levothyroxine Sodium [Synthroid] 112 mcg PO QAM 06/27/18 06/24/19 Magnesium Gluconate [Magonate] 500 mg PO DAILY 06/27/18 06/24/19 Rosuvastatin Calcium [Crestor] 5 mg PO DAILY 06/27/18 06/24/19 Hydrochlorothiazide 25 mg PO QAM 10/31/18 06/24/19 Losartan Potassium 100 mg PO QAM 10/31/18 06/24/19 Diltiazem Cd [Cardizem CD] 240 mg PO W/SUPPER 12/09/18 06/24/19 Hydrocortisone [Cortef] 5 mg PO DAILY@1500 01/07/19 06/24/19 Hydrocortisone [Cortef] 15 mg PO QAM 01/07/19 06/24/19 Gabapentin [Neurontin] 200 mg PO BID 01/12/19 06/24/19 Azithromycin [Zithromax] 250 mg PO MOWEFR 04/01/19 06/24/19 Denosumab [Prolia] 60 mg SQ Q180D 04/01/19 06/24/19 Fluticasone Propionate [Flovent 2 puff INHALATION RT-BID 04/01/19 06/24/19 Hfa 220 mcg] Xolair(Dose Unkown) 1 injection IJ QMONTH 04/01/19 06/24/19 Cyclobenzaprine HCl 5 mg PO HS PRN 06/24/19 06/24/19 Docusate [Colace] 100 mg PO DAILY PRN 06/24/19 06/24/19 Multivit-Min/Iron/Folic/Lutein 1 tab PO DAILY 06/24/19 06/24/19 [Centrum Silver Women Tablet] Previous Rx's Medication Instructions Recorded oxyCODONE-APAP 7.5-325MG [Percocet 1 tab PO DAILY PRN 30 Days #30 tab 12/09/18 7.5-325 mg] Allergies Allergy/AdvReac Type Severity Reaction Status Date / Time cefuroxime axetil Allergy Dyspnea Verified 06/24/19 11:55 [From Ceftin] moxifloxacin HCl Allergy Dyspnea Verified 06/24/19 11:55 [From Avelox] Penicillins Allergy Dyspnea Verified 06/24/19 11:55 rofecoxib [From Vioxx] Allergy Dyspnea Verified 06/24/19 11:55 blackberry Allergy Rash/Hives Uncoded 06/24/19 11:55 Review of Systems ROS Statement: Those systems with pertinent positive or pertinent negative responses have been documented in the HPI. ROS Other: All systems not noted in ROS Statement are negative. Past Medical History Past Medical History: Asthma, COPD, Fibromyalgia, Hypertension, Osteoarthritis (OA), Pneumonia, Pulmonary Embolus (PE), Respiratory Disorder, Skin Disorder, Thyroid Disorder Additional Past Medical History / Comment(s): January 07 kicked by horse resulting in large hematoma to RLE and ecessive eccymosis to bilateral posterior legs., pseudomonas in lungs, 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), palpitations, MTHFR gene, multiple PEs, adrenal insufficiency, hiatal hernia, macular degeneration with L eye worse, stuccokeratosis, chronic back pain and bilateral sciatica L side worse, lumbar DDD, migraines, osteoporosis, spinal stenosos, History of Any Multi-Drug Resistant Organisms: None Reported Past Surgical History: Section, Cholecystectomy, Heart Catheterization, Orthopedic Surgery, Tonsillectomy Additional Past Surgical History / Comment(s): R ankle plate/screws, L wrist carpal tunnel release, multiple bronchoscopies, bronchial thermoplasty x3, EGDs, colonoscopies/polypectomy, deviated septal surgery, [facility] pain clinic procedures, PICC/later removed, bilateral cataract removals/lens implants. Past Anesthesia/Blood Transfusion Reactions: Family History of Problems w/ Anesthesia Additional Past Anesthesia/Blood Transfusion Reaction / Comment(s): Pt has never received blood. DAUGHTER PONV Past Psychological History: No Psychological Hx Reported Smoking Status: Former smoker Past Alcohol Use History: None Reported Past Drug Use History: None Reported - Past Family History Father Family Medical History: Cancer Additional Family Medical History / Comment(s): Colon cancer. Mother Family Medical History: Congestive Heart Failure (CHF), COPD Additional Family Medical History / Comment(s): Mother lived to be 80 yrs old. Daughter(s) Family Medical History: Deep Vein Thrombosis (DVT) General Exam Limitations: no limitations Course Vital Signs 06/24/19 11:25 Temperature 98.7 F Pulse Rate 94 Respiratory 18 Rate Blood Pressure 109/70 O2 Sat by Pulse 94 L Oximetry Disposition Clinical Impression: Thigh pain Disposition: HOME SELF-CARE Condition: Good Instructions (If sedation given, give patient instructions): Meralgia Paresthetica (ED) Is patient prescribed a controlled substance at d/c from ED?: No Referrals: Karli Wallace MD [Primary Care Provider] - 1-2 days Time of Disposition: 13:59
--- NOTE | 2019-06-24 13:08 | XR ---
EXAMINATION TYPE: XR knee 4V LT DATE OF EXAM: 06/24/2019 COMPARISON: None HISTORY: Pain TECHNIQUE: 4 view left knee FINDINGS: There is mild narrowing of the medial lateral compartment joint spaces. Patellofemoral join t space narrowing is present. No significant joint effusion is evident. Small posterior superior sanchez llar spur is present. Tiny lateral tibial plateau spur is present. IMPRESSION: 1. Mild degenerative changes left knee. 2. No acute osseous abnormality.
--- NOTE | 2019-06-24 13:09 | XR ---
Left hip HISTORY: Pain Single frontal view of the left hip Bone mineralization is reduced. Alignment and joint spaces are maintained. No fracture or dislocation evident in this single view. Mild marginal spurring present at the femoral head. IMPRESSION: Osteopenia. Mild osteophytic change suspected. Limited exam.
[2019-06-24 14:16] VITALS: BP 126/67; PULSE 77; TEMP 97
== END 2019-06-24 14:19 | disposition home or self-care (01) ==
LOC: EC 11:17
DX: M79.652 Pain in left thigh (principal); M17.12 Unilateral primary osteoarthritis, left knee; J44.9 Chronic obstructive pulmonary disease, unspecified; M79.7 Fibromyalgia; I10 Essential (primary) hypertension; E07.9 Disorder of thyroid, unspecified; E27.40 Unspecified adrenocortical insufficiency; M81.0 Age-related osteoporosis without current pathological fracture; Z87.891 Personal history of nicotine dependence; Z88.0 Allergy status to penicillin; Z88.1 Allergy status to other antibiotic agents; Z88.6 Allergy status to analgesic agent; Z91.018 Allergy to other foods; Z79.01 Long term (current) use of anticoagulants; Z79.51 Long term (current) use of inhaled steroids; Z79.52 Long term (current) use of systemic steroids; Z79.890 Hormone replacement therapy; Z79.899 Other long term (current) drug therapy; Z86.711 Personal history of pulmonary embolism; Z86.69 Personal history of other diseases of the nervous system and sense organs
CPT/HCPCS: 73501; 99283

== ENCOUNTER → 2019-07-08 | Outpatient (CLI) | payer MEDICARE, BC ==
[2019-07-08 13:07] VITALS: BP 130/81; PULSE 94; RESP 18
--- NOTE | 2019-07-08 22:08 | P.PAINPG ---
Subjective Progress Note Date: 07/08/19 This is follow-up visit for this patient with a history of severe and chronic low back pain secondary to lumbar degenerative disc disease, lumbar spondylosis with facet arthropathy, Recently we have done lumbar epidural steroid injections , and RFA of the medial branch lumbar area Currently she is complaining of severe low back pain and she is complaining of frequent muscle spasm in the back and lower extremity The patient currently on Percocet 7.5/325 once a day and Neurontin 100 mg 2 tablet twice a day ( she is using Xeralto because of PE ) and Zanaflex 4 mg daily at bedtime Patient denies any side effect of the medication , patient denies any excessive drowsiness or sleepiness, patient denies any suicidal ideation, Patient reported that the current medication is helping to control the pain and improve the activity of daily livings, , denies any change in the bowel movement or urination, patient denies any fever or night sweats.Patient here today for follow-up visit and medication refill Objective - Vital Signs Vital signs: Vital Signs Temp Pulse 94 07/08/19 13:00 Resp 18 07/08/19 13:00 BP 130/81 07/08/19 13:00 Pulse Ox 95 07/08/19 13:00 - Exam Physical Examinations : -Constitutiona : Cooperative , not in acute distress . -HEENT : nech ; supple , no Lymphadenopathy , normal th yroid size . eyes : no ptosis , no icterus, no photophobia . -Musculoskeletal Lumber spine moter stegnth lower extremities ,thigh and legs 4/5 Right side , 4/5 Left side deep tendon reflexes : normal Knee Jerk , normal ankle Jerk positive lumber facet Loading Test Range of motion of the lumbar spine Flexion 30 degrees, extension 10 degrees strait leg raising test , positive at 30 degree Fabere test positive RT and positive LT . Assessment and Plan Plan: chronic low back pain secondary to lumbar degenerative disc disease , lumbar spondylosis with lumbar facet arthropathy . Patient continued to have severe low back pain after lumbar epidural steroid injections done recently, including most of the symptoms coming from the facetogenic component She complained of frequent episodes of muscle spasm in the low back and lower extremity chronic and current use of high-risk medication (opioids) Patient denies any side effects of the current pain medication and the current treatment/medication helping the patient to do activity of daily living , Diagnoses, prognosis, treatment options, including but not limited to physical therapy, medication management, interventional therapies, and surgery, were discussed with the patient All the questions answered The narcotic consent was signed and patient agreed and understood the side effects and complications of opioid treatment. Patient signed the narcotic agreement, and was orally counseled, not to overuse, not to abuse, not to Divert , not tp sell pain medication, and to take it as prescribed only, Patient was counseled not to drive or operate heavy equipment while using narcotic medication, and advised not to use alcohol or any Illicit drugs while using the narcotis, understanding that lack of compliance with any of the above instructions, will likely to cause discharge from, the pain service, not to renew his narcotic prescriptions MAPS Reviwed and it was apropriate . Medication managements= patient will be given prescription refills for Percocet 7.5/325 dispense 30 with one refill, continue Neurontin 100 mg 2 tablet twice a day She could benefit from Zanaflex 2 mg one tablet by mouth every morning and 1 tablet by mouth every p.m., and 2 tablets daily at bedtime she could benefit from RFA of the MB L3,L4 L5 will do the left side first, and we have to hold Xarelto for 3 days before the procedure , PQRS Measure Charge Sheet Measure #130: Documentation of Current Meds in Medical Chart: Patient's medications documented in chart Measure #226: Tobacco Use: Screen & Cessation Intervention: Pt not a tobacco user Measure #111: Pneumonia Vaccination: Pneumococcal vaccine administered or previously received Measure #47: Advance Care Plan: Advance care planning discussed & documented, pt chose/unable to give Measure #412: Opioid Treatment Agreement: Documented signed opioid trtmnt agreemnt min once during opioid trtmnt Measure #408: Opioid Therapy Follow-up Evaluation: Patient had f/u eval minimum every 3 months during opioid therapy Measure #317: Preventitive Care & Scrn High Bld Press & F/U: Normal blood pressure, f/u not required Measure #128: Body Mass Index (BMI) Screening & Follow-up: BMI documented ABOVE normal parameters - f/u documented Measure #131: Pain Assessment & Follow-up: Pain positive & plan documented, Follow-up scheduled Measure #431: Unhealthy Alcohol Use Preventative Care & Scrn: Patient not identified as an unhealthy alcohol user PQRS Narrative: Smoking Status Former smoker Narcotic Agreement Date Signed 12/09/18 Blood Pressure 130/81 Pain Intensity [Lower Back] 5 Scale Used Numeric (1 - 10) Hx Alcohol Use (MH) No Home Medications: Ambulatory Orders Salmeterol Xinafoate [Serevent Diskus] 1 puff INHALATION RT-BID 10/19/14 Albuterol Inhaler [Ventolin Hfa Inhaler] 2 puff INHALATION RT-Q6H PRN 11/05/14 Calcium Carbonate/Vitamin D3 [Calcium 600-Vit D3 400 Tablet] 1 tab PO BID 06/25/15 Cetirizine HCl [Zyrtec] 10 mg PO DAILY 01/27/16 Esomeprazole Magnesium [NexIUM] 20 mg PO QAM 04/05/16 Vit C/E/Zn/Coppr/Lutein/Zeaxan [Preservision Areds 2 Softgel] 1 cap PO BID 01/09/17 Ubidecarenone [Co Q-10] 200 mg PO DAILY 02/24/17 Multivit-Min/Iron/Folic/Euq034 [Hair, Skin and Nails Tablet] 1 tab PO DAILY 03/31/17 Rivaroxaban [Xarelto] 10 mg PO DAILY 08/27/17 Ipratropium-Albuterol Nebulize [Duoneb 0.5 mg-3 mg/3 ml Soln] 3 ml INHALATION RT-TID PRN 05/28/18 Ascorbic Acid [Vitamin C] 250 mg PO DAILY #0 06/27/18 Benzonatate [Tessalon Perles] 100 mg PO TID PRN 06/27/18 Cholecalciferol [Vitamin D3 (25 Mcg = 1000 Iu)] 1,000 unit PO DAILY 06/27/18 Levothyroxine Sodium [Synthroid] 112 mcg PO QAM 06/27/18 Magnesium Gluconate [Magonate] 500 mg PO DAILY 06/27/18 Rosuvastatin Calcium [Crestor] 5 mg PO DAILY 06/27/18 Hydrochlorothiazide 25 mg PO QAM 10/31/18 Losartan Potassium 100 mg PO QAM 10/31/18 Diltiazem Cd [Cardizem CD] 240 mg PO W/SUPPER 12/09/18 oxyCODONE-APAP 7.5-325MG [Percocet 7.5-325 mg] 1 tab PO DAILY PRN 30 Days #30 tab 12/09/18 Hydrocortisone [Cortef] 5 mg PO DAILY@1500 01/07/19 Hydrocortisone [Cortef] 15 mg PO QAM 01/07/19 Gabapentin [Neurontin] 200 mg PO BID 01/12/19 Azithromycin [Zithromax] 250 mg PO MOWEFR 04/01/19 Fluticasone Propionate [Flovent Hfa 220 mcg] 2 puff INHALATION RT-BID 04/01/19 Xolair(Dose Unkown) 1 injection IJ QMONTH 04/01/19 Cyclobenzaprine HCl 10 mg PO HS PRN 06/24/19 Docusate [Colace] 100 mg PO DAILY PRN 06/24/19 Denosumab [Prolia] 60 mg SQ Q6M 07/02/19 Fexofenadine/Pseudoephedrine [Flora-D 12 Hour Tablet] 1 each PO DIRECTED 07/02/19 Loratadine [Claritin] 10 mg PO DIRECTED 07/02/19 Vitamin C/Biotin [Hair, Skin and Nails] 2 tab PO DAILY 07/02/19 tiZANidine [Zanaflex] 1 tab PO HS PRN 07/08/19 Controlled Substance Measures - Controlled Substance Measures Is patient prescribed a controlled substance at discharge?: Yes When asked, does pt state using other controlled substances?: No If prescribed controlled substance>3 days was MAPS reviewed?: Yes If Rx opioid, was Start Talking consent form obtained?: Yes If opioid is for acute pain is fill amount 7 days or less?: No Was information provided regarding opioid addiction?: Yes
== END | disposition home or self-care (01) ==
LOC: PNWHC3 12:28
PROVIDERS: ATTEND Specialist
DX: G89.29 Other chronic pain (principal); M51.36 Other intervertebral disc degeneration, lumbar region; M47.816 Spondylosis without myelopathy or radiculopathy, lumbar region; M46.96 Unspecified inflammatory spondylopathy, lumbar region; Z87.891 Personal history of nicotine dependence; Z79.01 Long term (current) use of anticoagulants; Z79.891 Long term (current) use of opiate analgesic; Z79.2 Long term (current) use of antibiotics; Z79.51 Long term (current) use of inhaled steroids; Z79.899 Other long term (current) drug therapy
CPT/HCPCS: 99211

== ENCOUNTER 2019-07-15 07:36 | Day surgery (SDC) | payer MEDICARE, BC ==
[2019-07-13 08:53] VITALS: BMI 46.4
[2019-07-15 08:39] VITALS: TEMP 98.4
[2019-07-15] MEDS ORDERED: LIDOCAINE 1% 20 ML VIAL (10MG/ML) FOR IV START INTRADERMA ONE (09:02)
[2019-07-15 09:06] LABS: Glucose,Whole Blood 115 mg/dL (75-99)
--- NOTE | 2019-07-15 09:39 | P.PCN ---
Date of Procedure: 07/15/19 Procedure(s) Performed: PREOPERATIVE DIAGNOSIS: Lumbar Spondylosis POSTOPERATIVE DIAGNOSIS: Same PROCEDURES: Radiofrequency ablation of the L3, L4, L5 medial branches with fluoroscopic guidance on the left side for facets L4-5 and L5-S1 SURGEON: Bhakti Montgomery MD. ANESTHESIA: Lidocaine 1% 5 mL, Moderate sedation with intravenous Versed and fentanyl, sedation time 26 minutes EBL: Minimal Fluoroscopy was used for the procedure and images were saved in the radiology portion of the chart. PROCEDURE INDICATION: The patient with low back pain secondary to lumbar facet arthropathy who had good relief from prior lumbar radiofrequency ablations. PROCEDURE DESCRIPTION / TECHNIQUE: The patient was seen and identified in the preoperative area. Risks, benefits, complications, including but not limited to risk of infection ,bleeding , allergic reactions to the medications and incomplete pain relief , and alternatives were discussed with the patient, the patient agreed to proceed with the procedure and signed the consent. IV was started. The operative site was marked. Patient was taken to the OR and time out was completed. The patient was placed in the prone position on the procedure table. The lumbar area was prepped and draped in the usual sterile fashion. . Vital signs were closely monitored during the procedure .IV sedation was used during the procedure to decrease patients anxiety. Using AP and then oblique fluoroscopy, the "eye of the Dick dog" corresponding to the connection between the superior and transverse articular processes of the L4 and L5 as well as the sacral ala were identified, marked, and localized with 1% lidocaine. Subsequently, an 18 guage 150 mm radiofrequency cannula with a 10-mm active tip was advanced guided by fluoroscopy to the identified target at each site. Needle positioning was confirmed on AP, oblique and lateral fluoroscopy. Motor testing at 2.5 Hz was done with paraspinal muscle stimulation only, and no radicular symptoms down the legs. Then 1 mL of 4% lidocaine was injected in each site. Radiofrequency thermocoagulation at 80 degrees celsius for 90 seconds was then performed. [place] were removed. Sterile dressings were applied. COMPLICATIONS: No acute complications. DISPOSITION / PLANS: The patient was placed in a supine position and transferred to the recovery area in a stable condition for observation and was discharged from the recovery room after meeting discharge criteria. Home discharge instructions given to the patient by the staff. The patient will follow up in clinic in 4 weeks.
[2019-07-15] MEDS ORDERED: IV FLUID CONTINUATION 1,000 ML IV ONE (09:46)
[2019-07-15 09:52] VITALS: BP 100/60
[2019-07-15 10:09] VITALS: PULSE 91; RESP 17
--- NOTE | 2019-07-15 13:27 | FL ---
EXAMINATION TYPE: FL guided pain mgmt statistic DATE OF EXAM: 07/15/2019 COMPARISON: NONE HISTORY: Back pain TECHNIQUE: Fluoroscopy. FINDINGS: Fluoroscopic guidance was provided during procedure performed by Dr. Montgomery. A total of 17 s econds of fluoroscopic time was utilized during the procedure and 8 spot images was acquired demonstr ating localization of the lumbar spine at multiple levels. IMPRESSION: As Above.
== END 2019-07-15 10:25 | disposition home or self-care (01) ==
LOC: ORPAIN 07:36
PROVIDERS: ATTEND Anesthesiology
DX: G89.29 Other chronic pain (principal); M47.896 Other spondylosis, lumbar region; M51.36 Other intervertebral disc degeneration, lumbar region; Z86.711 Personal history of pulmonary embolism; Z87.891 Personal history of nicotine dependence; Z79.01 Long term (current) use of anticoagulants; Z79.51 Long term (current) use of inhaled steroids; Z79.899 Other long term (current) drug therapy
CPT/HCPCS: 64635; 64636; J2250; J3010; 99152; 99153

== ENCOUNTER → 2019-07-30 | Outpatient (CLI) | payer MEDICARE, BC ==
--- NOTE | 2019-07-31 09:03 | MM ---
Reason for exam: screening (asymptomatic). Last mammogram was performed 1 year and 1 month ago. History: Patient is postmenopausal. Family history of breast cancer in paternal aunt. Physical Findings: A clinical breast exam by your physician is recommended on an annual basis and results should be correlated with mammographic findings. MG 3D Screening Mammo W/Cad Bilateral CC, MLO, and XCCL view(s) were taken. Prior study comparison: June 26, 2018, bilateral MG 3d screening mammo w/cad. June 18, 2017, bilateral MG 3d screening mammo w/cad. The breast tissue is almost entirely fat. There is no discrete abnormality. No significant changes when compared with prior studies. ASSESSMENT: Negative, BI-RAD 1 RECOMMENDATION: Routine screening mammogram of both breasts in 1 year.
== END | disposition home or self-care (01) ==
LOC: RADMAMWWP 10:52
PROVIDERS: ATTEND Family Medicine
DX: Z12.31 Encounter for screening mammogram for malignant neoplasm of breast (principal)
CPT/HCPCS: 77063; 77067

== ENCOUNTER → 2019-08-10 | Outpatient (CLI) | payer MEDICARE, BC ==
--- NOTE | 2019-08-10 15:03 | BD ---
EXAMINATION TYPE: Axial Bone Density DATE OF EXAM: 08/10/2019 COMPARISON: 07/03/2017 CLINICAL HISTORY: M 81.0 Height: 58.7 IN Weight: 225 LBS FRAX RISK QUESTIONS: Glucocorticoids (More than 3mos): YES CORTEF 15 MG PER DAY FOR ADRENAL INSUFFIENCY (Ex: prednisone, prednisolone, methylprednisolone, dexamethasone, and hydrocortisone). Secondary Osteoporosis: 3. Menopause before 45: YES AGE 41 RISK FACTORS HISTORY OF: Active: YES Diet low in dairy products/other sources of calcium: YES Postmenopausal woman: AGE 41 Take estrogen and/or progesterone medications: PT TOOK HORMONES FOR SIX MONTHS AT AGE 41 Lost more than 2 inches in height since high school: YES 2 10/08" Adrenal Insufficiency: YES MEDICATIONS: Prednisone or other steroids: YES CORTEF 15 MG How Lon+ YEARS Thyroid Medications: YES Which medication: Synthroid How Lon+ YEARS Osteoporosis Medications: YES Which medication: Prolia How Lon INJ Additional Medications: CALCIUM, VIT D, SYNTHROID, LOSARTAN, HYDROCHLOROT, CARDIZEM, NEXIUM, SEREVENT , FLOVENT, ROSUVASTATIN, ZYRTEC, ZITHROMAX, OXYCODONE, NEURONTIN, CORTEF, PRESERVISION, XARELTO, PROL IA INJ, BIOTIN, MAGNESIUM, COQ10, VIT C, EXAM MEASUREMENTS: Bone mineral densitometry was performed using the [employer] System. Bone mineral density as measured about the Lumbar spine is: ----- L1-L4(G/cm2): 1.212 T Score Values are as follows: ----- L2: 1.1 ----- L3: 0.5 ----- L4: -0.3 ----- L1-L4: 0.3 Bone mineral density has: Increased 6.5since study of: 07/03/2017 Bone mineral density about the R hip (g/cm2): 0.692 Bone mineral density about the L hip (g/cm2): 0.722 T Score values are as follows: -----R Neck: -2.5 -----L Neck: -2.3 -----R Total: -1.8 -----L Total: -1.5 Bone mineral density has: Increased 8.1since study of: 07/03/2017 IMPRESSION: Osteopenia (T Score between -2.5 and -1). Values approach osteoporosis in regards to the right femora l neck. There is slightly increased risk of fracture and the patient may be considered for treatment. Re-Screen 2-5 years. NOTE: T-SCORE=SD OF THE YOUNG ADULT MEAN.
== END | disposition home or self-care (01) ==
LOC: RADBDWWP 12:57
PROVIDERS: ATTEND Internal Medicine Rheumatology
DX: M85.80 Other specified disorders of bone density and structure, unspecified site (principal); M81.0 Age-related osteoporosis without current pathological fracture
CPT/HCPCS: 77080

== ENCOUNTER → 2019-09-02 | Outpatient (CLI) | payer MEDICARE, BC ==
[2019-09-02 12:31] VITALS: BP 120/73; PULSE 98; RESP 18
--- NOTE | 2019-09-04 11:13 | P.PAINPG ---
Subjective Progress Note Date: 09/02/19 This is a follow-up visit for this 69 y F patient with a history of severe and chronic low back pain secondary to lumbar degenerative disc disease, lumbar spondylosis with facet arthropathy, Recently we have done RFA of the medial branch lumbar area, patient reports good benefit from this. Her current pain is located in the left lower back, radiating to left lower extremity. She rates her pain as 4/10. She is maintained with a series of pain medications and interventions. She reports that the medications are helping control her pain and improve activities of daily living. She continues to walk for exercise. She does report mild side effects from opiate medication including constipation. The patient currently on Percocet 7.5/325 once a day and Neurontin 100 mg 2 tablet twice a day ( she is using Xeralto because of PE ) and Flexeril 10 mg twice a day. Patient here today for follow-up visit and medication refill. She is interested and gradually weaning her narcotic medications. Review of systems is negative for chest pain, shortness of breath, new onset weakness, numbness/tingling, abdominal pain, malaise, fever, night sweats, chills, homicidal or suicidal ideation, or bowel or bladder incontinence. Objective Physical exam: Vitals: Reviewed in EMR GENERAL: Well appearing, in no acute distress, obese PSYCH: Mood and affect is appropriate. Awake, alert, and oriented SKIN: Skin color, texture, turgor normal, no rashes or lesions HEENT: Normocephalic, atraumatic. EOM intact CV: No pedal edema RESP: Respirations are unlabored, no audible wheezing GI: Abdomen non-distended, obese MUSCULOSKELETAL: Bilateral lower extremity strength is normal and symmetric. No atrophy or tone abnormalities are noted. Lumbar spine: Straight leg raising in the sitting position is positive on the left side for radicular pain. Tenderness to palpation over the lumbar spine and paraspinous muscles. Extremities: Peripheral joint ROM is full and pain free without obvious instability or laxity in all four extremities. No edema or skin discolorations noted. Gait: Gait is slow NEUR: Bilateral lower extremity coordination and muscle stretch reflexes are physiologic and symmetric. Negative clonus bilaterally. No loss of sensation is noted. Assessment and Plan Plan: chronic low back pain secondary to lumbar degenerative disc disease , lumbar spondylosis with lumbar facet arthropathy, lumbar radiculopathy . chronic and current use of high-risk medication (opioids) Patient denies any side effects of the current pain medication and the current treatment/medication helping the patient to do activity of daily living , Diagnoses, prognosis, treatment options, including but not limited to physical therapy, medication management, interventional therapies, and surgery, were discussed with the patient All the questions were answered Patient signed the narcotic agreement, and was orally counseled, not to overuse, not to abuse, not to Divert , not to sell pain medication, and to take it as prescribed only, Patient was counseled not to drive or operate heavy equipment while using narcotic medication, and advised not to use alcohol or any Illicit drugs while using the narcotics, understanding that lack of compliance with any of the above instructions, will likely to cause discharge from, the pain service, not to renew his narcotic prescriptions MAPS Reviewed and it was appropriate . Urine drug screen was reviewed. Medication managements= patient will be given prescription refills for Percocet 7.5/325 dispense 25 with one refill, this was decreased from 30 tablets per month. Neurontin increased from 200 mg twice a day to 3 mg 3 times a day. In the future, we will continue to decrease her narcotics. Patient is amenable to this plan. She was also given a prescription for Flexeril 10 mg twice a day. She does not currently want any interventions, however in the future, she may benefit from a left-sided L4-5 transforaminal epidural steroid injection in the future. She has not undergone this procedure before. She is on Xarelto which would need to be stopped 3 days before the procedure. She was provided an exercise handout and counseled on the importance of exercise and weight loss. She is morbidly obese, her BMI is 44, she was instructed to research keto diet and consider starting this to help with weight loss. In the past, various diets have not worked. Follow-up: In 2 months for medication management PQRS Measure Charge Sheet Measure #130: Documentation of Current Meds in Medical Chart: Patient's medications documented in chart Measure #226: Tobacco Use: Screen & Cessation Intervention: Pt not a tobacco user Measure #111: Pneumonia Vaccination: Pneumococcal vaccine administered or previously received Measure #47: Advance Care Plan: Advance care planning discussed & documented, pt chose/unable to give Measure #412: Opioid Treatment Agreement: Documented signed opioid trtmnt agreemnt min once during opioid trtmnt Measure #408: Opioid Therapy Follow-up Evaluation: Patient had f/u eval minimum every 3 months during opioid therapy Measure #317: Preventitive Care & Scrn High Bld Press & F/U: Normal blood pressure, f/u not required Measure #128: Body Mass Index (BMI) Screening & Follow-up: BMI documented ABOVE normal parameters - f/u documented Measure #131: Pain Assessment & Follow-up: Pain positive & plan documented, Follow-up scheduled Measure #431: Unhealthy Alcohol Use Preventative Care & Scrn: Patient not identified as an unhealthy alcohol user Objective - Vital Signs Vital signs: Vital Signs Temp Pulse 98 09/02/19 12:25 Resp 18 09/02/19 12:25 BP 120/73 09/02/19 12:25 Pulse Ox 94 L 09/02/19 12:25 PQRS Measure Charge Sheet PQRS Narrative: Smoking Status Former smoker Narcotic Agreement Date Signed 12/09/18 Blood Pressure 120/73 Pain Intensity [Back] 4 Scale Used Numeric (1 - 10) Hx Alcohol Use (MH) No Home Medications: Ambulatory Orders Albuterol Inhaler [Ventolin Hfa Inhaler] 2 puff INHALATION Q6HR PRN 11/05/14 Calcium Carbonate/Vitamin D3 [Calcium 600-Vit D3 400 Tablet] 1 tab PO BID 06/25/15 Esomeprazole Magnesium [NexIUM] 40 mg PO QAM 04/05/16 Vit C/E/Zn/Coppr/Lutein/Zeaxan [Preservision Areds 2 Softgel] 1 cap PO BID 01/09/17 Ubidecarenone [Co Q-10] 200 mg PO DAILY 02/24/17 Rivaroxaban [Xarelto] 10 mg PO DAILY 08/27/17 Ipratropium-Albuterol Nebulize [Duoneb 0.5 mg-3 mg/3 ml Soln] 3 ml INHALATION TID PRN 05/28/18 Ascorbic Acid [Vitamin C] 250 mg PO BID #0 06/27/18 Benzonatate [Tessalon Perles] 100 mg PO TID PRN 06/27/18 Cholecalciferol [Vitamin D3 (25 Mcg = 1000 Iu)] 1,000 unit PO DAILY 06/27/18 Levothyroxine Sodium [Synthroid] 112 mcg PO QAM 06/27/18 Magnesium Gluconate [Magonate] 500 mg PO DAILY 06/27/18 Rosuvastatin Calcium [Crestor] 5 mg PO DAILY 06/27/18 Hydrochlorothiazide 5 mg PO QAM 10/31/18 Losartan Potassium 100 mg PO QAM 10/31/18 oxyCODONE-APAP 7.5-325MG [Percocet 7.5-325 mg] 1 tab PO DAILY PRN 30 Days #30 tab 12/09/18 Hydrocortisone [Cortef] 5 mg PO DAILY@1500 01/07/19 Hydrocortisone [Cortef] 10 mg PO QAM 01/07/19 Gabapentin [Neurontin] 200 mg PO BID 01/12/19 Azithromycin [Zithromax] 250 mg PO MOWEFR 04/01/19 Fluticasone Propionate [Flovent Hfa 220 mcg] 2 puff INHALATION BID 04/01/19 Xolair(Dose Unkown) 1 injection IJ QMONTH 04/01/19 Docusate [Colace] 100 mg PO DAILY PRN 06/24/19 Loratadine [Claritin] 10 mg PO DAILY 07/02/19 Vitamin C/Biotin [Hair, Skin and Nails] 2 tab PO DAILY 07/02/19 Denosumab [Prolia] 60 mg SQ Q180D 07/13/19 Diltiazem Cd [Cardizem Cd] 240 mg PO 1600 07/13/19 Salmeterol Xinafoate [Serevent Diskus] 50 mcg IH BID 07/13/19 Cyclobenzaprine [Flexeril] 10 mg PO BID 09/02/19 Controlled Substance Measures - Controlled Substance Measures Is patient prescribed a controlled substance at discharge?: Yes When asked, does pt state using other controlled substances?: No If prescribed controlled substance>3 days was MAPS reviewed?: Yes If Rx opioid, was Start Talking consent form obtained?: Yes If opioid is for acute pain is fill amount 7 days or less?: No Was information provided regarding opioid addiction?: Yes
== END ==
LOC: PNWHC3 11:39
PROVIDERS: ATTEND Anesthesiology
DX: G89.29 Other chronic pain (principal); M51.16 Intervertebral disc disorders with radiculopathy, lumbar region; M47.26 Other spondylosis with radiculopathy, lumbar region; M46.96 Unspecified inflammatory spondylopathy, lumbar region; Z79.891 Long term (current) use of opiate analgesic; Z87.891 Personal history of nicotine dependence; Z79.899 Other long term (current) drug therapy; Z79.2 Long term (current) use of antibiotics
CPT/HCPCS: 99211

== ENCOUNTER → 2019-10-28 | Outpatient (CLI) | payer MEDICARE, BC ==
[2019-10-28 11:25] VITALS: BP 136/81; PULSE 64; RESP 20
--- NOTE | 2019-10-29 09:13 | P.PAINPG ---
Subjective Progress Note Date: 10/28/19 This is a follow-up visit for this 69 y F patient with a history of severe and chronic low back pain secondary to lumbar degenerative disc disease, lumbar spondylosis with facet arthropathy, Recently we have done RFA of the medial branch lumbar area, patient reports good benefit from this. Her current pain is located in the left lower back, radiating to left lower extremity. She rates her pain as 4/10. She is maintained with a series of pain medications and interventions. She reports that the medications are helping control her pain and improve activities of daily living. She continues to walk for exercise. She does report mild side effects from opiate medication including constipation. The patient currently on Percocet 7.5/325 once a day and Neurontin 300 mg 2 tablet twice a day ( she is using Xeralto because of PE ) and Flexeril 10 mg twice a day. Patient here today for follow-up visit and medication refill. She is cleaning of some numbness in the left lower extremity in the anterior and medial aspect of the right thigh Review of systems is negative for chest pain, shortness of breath, new onset weakness, abdominal pain, malaise, fever, night sweats, chills, homicidal or suicidal ideation, or bowel or bladder incontinence. Objective - Vital Signs Vital signs: Vital Signs Temp Pulse 64 10/28/19 11:20 Resp 20 10/28/19 11:20 BP 136/81 10/28/19 11:20 Pulse Ox 95 10/28/19 11:20 - Exam Physical Examinations : -Constitutiona : Cooperative , not in acute distress . -HEENT : nech ; supple , no Lymphadenopathy , normal thyroid size . eyes : no ptosis , no icterus, no photophobia . -Musculoskeletal Lumber spine moter stegnth lower extremities ,thigh and legs 4/5 Right side , 4/5 Left side deep tendon reflexes : normal Knee Jerk , normal ankle Jerk positive lumber facet Loading Test Range of motion of the lumbar spine Flexion 30 degrees, extension 10 degrees strait leg raising test , positive at 30 degree Fabere test positive RT and positive LT . Assessment and Plan Plan: Assessment and plan= chronic low back pain secondary to lumbar degenerative disc disease , lumbar spondylosis with lumbar facet arthropathy . Lumbar radiculopathy left L3 4 dermatomal distribution Patient continued to have severe low back pain after lumbar epidural steroid injections done recently, including most of the symptoms coming from the facetogenic component She complained of frequent episodes of muscle spasm in the low back and lower extremity chronic and current use of high-risk medication (opioids) Patient denies any side effects of the current pain medication and the current treatment/medication helping the patient to do activity of daily living , Diagnoses, prognosis, treatment options, including but not limited to physical therapy, medication management, interventional therapies, and surgery, were discussed with the patient All the questions answered The narcotic consent was signed and patient agreed and understood the side effects and complications of opioid treatment. Patient signed the narcotic agreement, and was orally counseled, not to overuse, not to abuse, not to Divert , not tp sell pain medication, and to take it as prescribed only, Patient was counseled not to drive or operate heavy equipment while using narcotic medication, and advised not to use alcohol or any Illicit drugs while using the narcotis, understanding that lack of compliance with any of the above instructions, will likely to cause discharge from, the pain service, not to renew his narcotic prescriptions MAPS Reviwed and it was apropriate . Medication managements= patient will be given prescription refills for Percocet 7.5/325 dispense 25 with one refill, continue Neurontin 300 mg 2 tablet twice a day with one refill Flexeril 10 mg twice a day with one refill She will follow up in the pain clinic in 2 months Procedure= in the future patient could be good candidate to have transforaminal epidural steroid injection at L3 4 Time with Patient: Less than 30 PQRS Measure Charge Sheet Measure #130: Documentation of Current Meds in Medical Chart: Patient's medications documented in chart Measure #226: Tobacco Use: Screen & Cessation Intervention: Pt not a tobacco user Measure #111: Pneumonia Vaccination: Pneumococcal vaccine administered or previously received Measure #47: Advance Care Plan: Advance care planning discussed & documented, pt chose/unable to give Measure #412: Opioid Treatment Agreement: Documented signed opioid trtmnt agreemnt min once during opioid trtmnt Measure #408: Opioid Therapy Follow-up Evaluation: Patient had f/u eval minimum every 3 months during opioid therapy Measure #317: Preventitive Care & Scrn High Bld Press & F/U: Normal blood pressure, f/u not required Measure #128: Body Mass Index (BMI) Screening & Follow-up: BMI documented ABOVE normal parameters - f/u documented Measure #131: Pain Assessment & Follow-up: Pain positive & plan documented, Follow-up scheduled Measure #431: Unhealthy Alcohol Use Preventative Care & Scrn: Patient not identified as an unhealthy alcohol user PQRS Narrative: Smoking Status Former smoker Narcotic Agreement Date Signed 12/09/18 Blood Pressure 136/81 Pain Intensity [Left Leg] 7 Pain Intensity [Lower Back] 5 Hx Alcohol Use (MH) No Home Medications: Ambulatory Orders Albuterol Inhaler [Ventolin Hfa Inhaler] 2 puff INHALATION Q6HR PRN 11/05/14 Calcium Carbonate/Vitamin D3 [Calcium 600-Vit D3 400 Tablet] 1 tab PO BID 06/25/15 Esomeprazole Magnesium [NexIUM] 40 mg PO QAM 04/05/16 Vit C/E/Zn/Coppr/Lutein/Zeaxan [Preservision Areds 2 Softgel] 1 cap PO BID 01/09/17 Ubidecarenone [Co Q-10] 200 mg PO DAILY 02/24/17 Rivaroxaban [Xarelto] 10 mg PO DAILY 08/27/17 Ipratropium-Albuterol Nebulize [Duoneb 0.5 mg-3 mg/3 ml Soln] 3 ml INHALATION TID PRN 05/28/18 Ascorbic Acid [Vitamin C] 250 mg PO BID #0 06/27/18 Benzonatate [Tessalon Perles] 100 mg PO TID PRN 06/27/18 Cholecalciferol [Vitamin D3 (25 Mcg = 1000 Iu)] 1,000 unit PO DAILY 06/27/18 Levothyroxine Sodium [Synthroid] 112 mcg PO QAM 06/27/18 Magnesium Gluconate [Magonate] 500 mg PO DAILY 06/27/18 Rosuvastatin Calcium [Crestor] 5 mg PO DAILY 06/27/18 Hydrochlorothiazide 25 mg PO QAM 10/31/18 Losartan Potassium 100 mg PO QAM 10/31/18 oxyCODONE-APAP 7.5-325MG [Percocet 7.5-325 mg] 1 tab PO DAILY PRN 30 Days #30 tab 12/09/18 Hydrocortisone [Cortef] 5 mg PO DAILY@1500 01/07/19 Hydrocortisone [Cortef] 10 mg PO QAM 01/07/19 Gabapentin [Neurontin] 300 mg PO BID 01/12/19 Azithromycin [Zithromax] 250 mg PO MOWEFR 04/01/19 Fluticasone Propionate [Flovent Hfa 220 mcg] 2 puff INHALATION BID 04/01/19 Xolair(Dose Unkown) 1 injection IJ QMONTH 04/01/19 Docusate [Colace] 100 mg PO DAILY PRN 06/24/19 Loratadine [Claritin] 10 mg PO DAILY 07/02/19 Vitamin C/Biotin [Hair, Skin and Nails] 2 tab PO DAILY 07/02/19 Denosumab [Prolia] 60 mg SQ Q180D 07/13/19 Diltiazem Cd [Cardizem Cd] 240 mg PO 1600 07/13/19 Salmeterol Xinafoate [Serevent Diskus] 50 mcg IH BID 07/13/19 Cyclobenzaprine [Flexeril] 10 mg PO BID 09/02/19 Controlled Substance Measures - Controlled Substance Measures Is patient prescribed a controlled substance at discharge?: Yes When asked, does pt state using other controlled substances?: No If prescribed controlled substance>3 days was MAPS reviewed?: Yes If Rx opioid, was Start Talking consent form obtained?: Yes If opioid is for acute pain is fill amount 7 days or less?: No Was information provided regarding opioid addiction?: Yes
== END | disposition home or self-care (01) ==
LOC: PNWHC3 10:46
PROVIDERS: ATTEND Specialist
DX: G89.29 Other chronic pain (principal); M51.16 Intervertebral disc disorders with radiculopathy, lumbar region; M47.26 Other spondylosis with radiculopathy, lumbar region; M46.96 Unspecified inflammatory spondylopathy, lumbar region; K59.00 Constipation, unspecified; Z87.891 Personal history of nicotine dependence; Z98.890 Other specified postprocedural states; Z79.01 Long term (current) use of anticoagulants; Z79.2 Long term (current) use of antibiotics; Z79.899 Other long term (current) drug therapy
CPT/HCPCS: 99211

== ENCOUNTER 2019-12-14 23:48 | Emergency (ER) | payer MEDICARE, BC ==
[2019-12-15 00:01] VITALS: TEMP 98.6
[2019-12-15] MEDS ORDERED: IPRATROPIUM 0.5 MG/2.5 ML NEBU INHALATION STA (00:23)
[2019-12-15 00:48] LABS: HCT 39.4 % (34.0-46.0); HGB 12.6 gm/dL (11.4-16.0); MCV 93.6 fL (80.0-100.0); Mean Platelet Volume 8.1; Platelet Count 273 k/uL (150-450); RBC 4.21 m/uL (3.80-5.40); RDW 13.6 % (11.5-15.5); WBC 8.2 k/uL (3.8-10.6)
--- NOTE | 2019-12-15 00:48 | XR ---
EXAMINATION TYPE: XR chest 2V DATE OF EXAM: 12/15/2019 COMPARISON: 12/30/2018 HISTORY: Short of breath TECHNIQUE: FINDINGS: There is no heart failure nor confluent pneumonic infiltrate. Costophrenic angles are clear . There are no hilar masses. There are chest leads. Bony thorax is intact. IMPRESSION: No active cardiopulmonary disease. No change.
[2019-12-15 00:55] LABS: Albumin 4.2 g/dL (3.5-5.0); Calcium 9.4 mg/dL (8.4-10.2); Potassium 3.9 mmol/L (3.5-5.1); Total Bilirubin 0.5 mg/dL (0.2-1.3); Total Protein 6.7 g/dL (6.3-8.2)
[2019-12-15 01:15] LABS: D-Dimer 0.21 mg/L FEU (<0.60); Partial Thromboplastin Time 22.1 sec (22.0-30.0); Prothrombin Time 10.6 sec (9.0-12.0)
[2019-12-15 01:35] LABS: Band Neutrophils % 2 %; Eosinophils # (M) 0.08 k/uL (0-0.7); Lymphocytes # (M) 1.64 k/uL (1.0-4.8); Metamyelocytes # (M) 0.16 k/uL (0); Metamyelocytes % 2 %; Monocytes # (M) 0.66 k/uL (0-1.0); Myelocytes # (M) 0.08 k/uL (0); Myelocytes % 1 %; Neutrophils % (M) 68 %; Nucleated Red Blood Cells 0 /100 WBC (0-0); Total Cells Counted 200
[2019-12-15 01:36] LABS: Polychromasia Present
[2019-12-15 01:37] LABS: Large Platelets Present
--- NOTE | 2019-12-15 03:45 | ED ---
Chest Pain HPI - General Chief Complaint: Chest Pain Stated Complaint: Chest pressure Time Seen by Provider: 12/15/19 00:07 Source: patient Mode of arrival: wheelchair Limitations: no limitations - History of Present Illness Initial Comments: Patient is 69-year-old woman who presents with substernal and epigastric pain that she describes as being like indigestion and also some increased belching. The patient states that she tried taking Mylanta without much relief. When the symptoms did not resolve she felt she should be evaluated here. She did have a little bit of nausea. There is no dyspnea, diaphoresis, palpitations, lightheadedness or syncope. MD Complaint: chest pain -: hour(s) Onset: during rest Pain Location: substernal, epigastric Pain Radiation: none Severity: moderate Quality: other (Like indigestion) Consistency: constant Improves With: antacids Worsens With: nothing Anginal Symptoms: nausea Treatments Prior to Arrival: none - Related Data Home Medications Medication Instructions Recorded Confirmed Albuterol Inhaler [Ventolin Hfa 2 puff INHALATION Q6HR PRN 11/05/14 12/17/19 Inhaler] Calcium Carbonate/Vitamin D3 1 tab PO BID 06/25/15 12/17/19 [Calcium 600-Vit D3 400 Tablet] Vit C/E/Zn/Coppr/Lutein/Zeaxan 1 cap PO BID 01/09/17 12/17/19 [Preservision Areds 2 Softgel] Ubidecarenone [Co Q-10] 200 mg PO DAILY 02/24/17 12/17/19 Rivaroxaban [Xarelto] 10 mg PO DAILY 08/27/17 12/17/19 Ipratropium-Albuterol Nebulize 3 ml INHALATION TID PRN 05/28/18 12/17/19 [Duoneb 0.5 mg-3 mg/3 ml Soln] Ascorbic Acid [Vitamin C] 250 mg PO BID #0 06/27/18 12/17/19 Benzonatate [Tessalon Perles] 100 mg PO TID PRN 06/27/18 12/17/19 Cholecalciferol [Vitamin D3 (25 1,000 unit PO DAILY 06/27/18 12/17/19 Mcg = 1000 Iu)] Levothyroxine Sodium [Synthroid] 112 mcg PO QAM 06/27/18 12/17/19 Magnesium Gluconate [Magonate] 500 mg PO DAILY 06/27/18 12/17/19 Rosuvastatin Calcium [Crestor] 5 mg PO DAILY 06/27/18 12/17/19 Hydrochlorothiazide 25 mg PO QAM 10/31/18 12/17/19 Losartan Potassium 100 mg PO QAM 10/31/18 12/17/19 Hydrocortisone [Cortef] 5 mg PO DAILY@1500 01/07/19 12/17/19 Hydrocortisone [Cortef] 10 mg PO QAM 01/07/19 12/17/19 Gabapentin [Neurontin] 300 mg PO BID 01/12/19 12/17/19 Fluticasone Propionate [Flovent 2 puff INHALATION BID 04/01/19 12/17/19 Hfa 220 mcg] Xolair(Dose Unkown) 1 injection IJ QMONTH 04/01/19 12/17/19 Docusate [Colace] 100 mg PO DAILY PRN 06/24/19 12/17/19 Loratadine [Claritin] 10 mg PO DAILY 07/02/19 12/17/19 Vitamin C/Biotin [Hair, Skin and 2 tab PO DAILY 07/02/19 12/17/19 Nails] Denosumab [Prolia] 60 mg SQ Q180D 07/13/19 12/17/19 Diltiazem Cd [Cardizem Cd] 240 mg PO 1600 07/13/19 12/17/19 Salmeterol Xinafoate [Serevent 50 mcg IH BID 07/13/19 12/17/19 Diskus] Azithromycin [Zithromax] 500 mg PO DAILY 12/17/19 12/17/19 Baclofen(New To Replace Flexer 1 tab PO DIRECTED PRN 12/17/19 Esomeprazole Magnesium [NexIUM] 20 mg PO DAILY 12/17/19 12/17/19 Previous Rx's Medication Instructions Recorded oxyCODONE-APAP 7.5-325MG [Percocet 1 tab PO DAILY PRN 30 Days #30 tab 12/09/18 7.5-325 mg] Allergies Allergy/AdvReac Type Severity Reaction Status Date / Time cefuroxime axetil Allergy Dyspnea Verified 12/17/19 15:17 [From Ceftin] moxifloxacin HCl Allergy Dyspnea Verified 12/17/19 15:17 [From Avelox] Penicillins Allergy Dyspnea Verified 12/17/19 15:17 rofecoxib [From Vioxx] Allergy Dyspnea Verified 12/17/19 15:17 blackberry Allergy Rash/Hives Uncoded 12/17/19 15:17 Review of Systems ROS Statement: Those systems with pertinent positive or pertinent negative responses have been documented in the HPI. ROS Other: All systems not noted in ROS Statement are negative. Constitutional: Denies: fever, chills Respiratory: Denies: cough, dyspnea Cardiovascular: Reports: as per HPI, chest pain. Denies: palpitations, orthopnea, edema, syncope Gastrointestinal: Reports: as per HPI, abdominal pain, nausea. Denies: vomiting Genitourinary: Denies: dysuria, hematuria Skin: Denies: rash Neurological: Denies: headache, weakness, numbness EKG Findings - EKG Results: EKG: interpreted by PAPO, sinus rhythm, normal axis, normal ST/T EKG shows: tachycardia (Rate 107 bpm) - Blocks, [place], Hypertrophy, ST Abn: Chamber hypertrophy or enlargement: left ventricular hypertrophy or enlargement (LVE) Past Medical History Past Medical History: Asthma, COPD, Fibromyalgia, Hypertension, Osteoarthritis (OA), Pneumonia, Pulmonary Embolus (PE), Respiratory Disorder, Skin Disorder, Thyroid Disorder Additional Past Medical History / Comment(s): 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, 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), palpitations, MTHFR gene, multiple PEs, adrenal insufficiency, hiatal hernia, macular degeneration with L eye worse, stuccokeratosis of skin, chronic back pain and bilateral sciatica L side worse, lumbar DDD, migraines, osteoporosis, spinal stenosis History of Any Multi-Drug Resistant Organisms: None Reported Past Surgical History: Section, Cholecystectomy, Heart Catheterization, Orthopedic Surgery, Tonsillectomy Additional Past Surgical History / Comment(s): R ankle plate/screws, L wrist carpal tunnel release, multiple bronchoscopies, bronchial thermoplasty x3, EGDs, colonoscopies/polypectomy, deviated septal surgery, [facility] pain clinic procedures, PICC/later removed, bilateral cataract removals/lens implants. Past Anesthesia/Blood Transfusion Reactions: Family History of Problems w/ Anesthesia, Postoperative Nausea & Vomiting (PONV) Additional Past Anesthesia/Blood Transfusion Reaction / Comment(s): Pt has never received blood. Occ nausea. DAUGHTER PONV Past Psychological History: No Psychological Hx Reported Smoking Status: Former smoker Past Alcohol Use History: None Reported Past Drug Use History: None Reported - Past Family History Father Family Medical History: Cancer Additional Family Medical History / Comment(s): Colon cancer. Mother Family Medical History: Congestive Heart Failure (CHF), COPD Additional Family Medical History / Comment(s): Mother lived to be 80 yrs old. Daughter(s) Family Medical History: Deep Vein Thrombosis (DVT) General Exam General appearance: alert, in no apparent distress Head exam: Present: atraumatic, normocephalic Eye exam: Present: normal appearance. Absent: scleral icterus, conjunctival injection ENT exam: Present: normal oropharynx Respiratory exam: Present: normal lung sounds bilaterally. Absent: respiratory distress, wheezes, rales, rhonchi, stridor Cardiovascular Exam: Present: regular rate, normal rhythm GI/Abdominal exam: Present: soft. Absent: distended, tenderness, guarding, rebound, rigid, mass Extremities exam: Present: normal inspection, normal capillary refill. Absent: pedal edema, calf tenderness Back exam: Present: normal inspection. Absent: CVA tenderness (R), CVA tenderness (L) Neurological exam: Present: alert Skin exam: Present: warm, dry, intact, normal color. Absent: rash Course Vital Signs 12/14/19 12/15/19 12/15/19 23:55 00:14 00:55 Temperature 98.6 F Pulse Rate 109 H 101 H Pulse Rate [ 100 Respiratory Care Practitioner ] Respiratory 20 Rate Blood Pressure 124/73 O2 Sat by Pulse 96 Oximetry 12/15/19 12/15/19 01:03 03:51 Temperature Pulse Rate 104 H 92 Pulse Rate [ Respiratory Care Practitioner ] Respiratory 18 Rate Blood Pressure 111/87 O2 Sat by Pulse 94 L Oximetry Chest Pain MDM - MDM Patient's 69-year-old woman with atypical chest pain. I did discuss admission for telemetry monitoring, serial enzymes and cardiology consultation, but patient states she would rather go home. 2 given Ativan margin of safety, 2 sets of enzymes were drawn and negative. Discussed appropriate further care and follow-up as well as return parameters. Disposition Clinical Impression: Chest pain Disposition: HOME SELF-CARE Condition: Good Instructions (If sedation given, give patient instructions): Chest Pain (ED) Is patient prescribed a controlled substance at d/c from ED?: No Referrals: Laurent Gramajo DO [Primary Care Provider] - 1-2 days
[2019-12-15 03:52] VITALS: BP 111/87; PULSE 92; RESP 18
== END 2019-12-15 04:03 | disposition home or self-care (01) ==
LOC: EC 23:48
DX: R07.89 Other chest pain (principal); R10.13 Epigastric pain; R11.0 Nausea; R14.2 Eructation; J44.9 Chronic obstructive pulmonary disease, unspecified; I10 Essential (primary) hypertension; M19.90 Unspecified osteoarthritis, unspecified site; E07.9 Disorder of thyroid, unspecified; E27.40 Unspecified adrenocortical insufficiency; M81.0 Age-related osteoporosis without current pathological fracture; M79.7 Fibromyalgia; Z87.891 Personal history of nicotine dependence; Z88.0 Allergy status to penicillin; Z88.1 Allergy status to other antibiotic agents; Z88.6 Allergy status to analgesic agent; Z91.018 Allergy to other foods; Z79.01 Long term (current) use of anticoagulants; Z79.51 Long term (current) use of inhaled steroids; Z79.52 Long term (current) use of systemic steroids; Z79.890 Hormone replacement therapy; Z79.899 Other long term (current) drug therapy; Z86.711 Personal history of pulmonary embolism; Z86.69 Personal history of other diseases of the nervous system and sense organs; Z96.698 Presence of other orthopedic joint implants; Z90.49 Acquired absence of other specified parts of digestive tract; Z98.890 Other specified postprocedural states; Z82.49 Family history of ischemic heart disease and other diseases of the circulatory system; Z80.0 Family history of malignant neoplasm of digestive organs
CPT/HCPCS: 36415; 71046; 80053; 83880; 84484; 85025; 85379; 85610; 85730; 87502; 93005; 94640; 99285

== ENCOUNTER → 2020-03-02 | Outpatient (CLI) | payer MEDICARE, BC ==
--- NOTE | 2020-03-02 12:03 | P.PAINPG ---
Subjective Progress Note Date: 03/02/20 THIS ENCOUNTER WAS PERFORMED A TELEMEDICINE VISIT VIA SECURE TWO-WAY AUDIO TO MINIMIZE RISK AND TRANSMISSION OF COVID-19. This is a follow-up visit for this 69 y F patient with a history of severe and chronic low back pain secondary to lumbar degenerative disc disease, lumbar spondylosis with facet arthropathy, She has been managed with a combination of medication management and interventional pain procedures. She was scheduled to undergo transforaminal epidural steroid injection, unfortunately this was not able to be performed due to coronavirus pandemic. Pain is located in low back and left leg>right leg. She rates her pain as 7/10, not associated with numbness, weakness. She endorses lack of sleep. Pain worse with walking, standing, better with sitting, laying down, medications. She reports that the medications are helping control her pain and improve activities of daily living. She continues to walk for exercise. She does report mild side effects from opiate medication including constipation. The patient currently on Percocet 7.5/325 once a day and Neurontin 300 mg twice a day ( she is using Xeralto because of PE ) and baclofen 5 mg twice a day. Patient states that flexeril worked better than baclofen. Review of systems is negative for chest pain, new onset weakness, abdominal pain, malaise, fever, night sweats, chills, homicidal or suicidal ideation, or bowel or bladder incontinence. She does endorse chronic SOB; she has COPD, asthma, tracheobronchomalacia. Objective Physical exam: unable to be performed due to audio only tele visit Assessment and Plan Plan: Assessment and plan= chronic low back pain secondary to lumbar degenerative disc disease , lumbar spondylosis with lumbar facet arthropathy . Lumbar radiculopathy left L3 4 dermatomal distribution Patient continued to have severe low back pain after lumbar epidural steroid injections done recently, including most of the symptoms coming from the facetogenic component chronic and current use of high-risk medication (opioids) Patient denies any side effects of the current pain medication and the current treatment/medication helping the patient to do activity of daily living , The narcotic consent was signed and is on file MAPS Reviewed and it was appropriate . Medication managements= patient will be given prescription refills for Percocet 7.5/325 dispense 30 with one refill, continue Neurontin 300 mg twice a day with one refill Flexeril 10 mg twice a day with one refill; will discontinue baclofen as this was not working well She will follow up in the pain clinic in 2 months Procedure= in the future patient could be good candidate to have left sided transforaminal epidural steroid injection at L3 4. Patient wants to delay this for sometime as she has chronic SOB due to COPD, asthma, tracheobronchomalacia. She will call the clinic to schedule this. PQRS Measure Charge Sheet PQRS Narrative: Smoking Status Former smoker Narcotic Agreement Date Signed 12/09/18 Pain Intensity [Lower Back] 7 Scale Used Numeric (1 - 10) Hx Alcohol Use (MH) No Home Medications: Ambulatory Orders Albuterol Inhaler (Mhu) [Ventolin Hfa Inhaler (Mhu)] 2 puff INHALATION Q6HR PRN 11/05/14 Calcium Carbonate/Vitamin D3 [Calcium 600-Vit D3 400 Tablet] 1 tab PO BID 06/25/15 Vit C/E/Zn/Coppr/Lutein/Zeaxan [Preservision Areds 2 Softgel] 1 cap PO BID 01/09/17 Ubidecarenone [Co Q-10] 200 mg PO DAILY 02/24/17 Rivaroxaban [Xarelto] 10 mg PO DAILY 08/27/17 Ipratropium-Albuterol Nebulize [Duoneb 0.5 mg-3 mg/3 ml Soln] 3 ml INHALATION TID PRN 05/28/18 Ascorbic Acid [Vitamin C] 500 mg PO DAILY #0 06/27/18 Benzonatate [Tessalon Perles] 100 mg PO TID PRN 06/27/18 Cholecalciferol [Vitamin D3 (25 Mcg = 1000 Iu)] 1,000 unit PO DAILY 06/27/18 Levothyroxine Sodium [Synthroid] 112 mcg PO QAM 06/27/18 Magnesium Gluconate [Magonate] 500 mg PO DAILY 06/27/18 Rosuvastatin Calcium [Crestor] 5 mg PO DAILY 06/27/18 Hydrochlorothiazide 25 mg PO QAM 10/31/18 Losartan Potassium 100 mg PO QAM 10/31/18 Hydrocortisone [Cortef] 10 mg PO DAILY@1500 01/07/19 Fluticasone Propionate [Flovent Hfa 220 mcg] 2 puff INHALATION BID 04/01/19 Xolair(Dose Unkown) 1 injection IJ QMONTH 04/01/19 Docusate [Colace] 100 mg PO DAILY PRN 06/24/19 Loratadine [Claritin] 10 mg PO DAILY 07/02/19 Vitamin C/Biotin [Hair, Skin and Nails] 2 tab PO DAILY 07/02/19 Denosumab [Prolia] 60 mg SQ Q180D 07/13/19 Diltiazem Cd [Cardizem Cd] 240 mg PO 1600 07/13/19 Salmeterol Xinafoate [Serevent Diskus] 50 mcg IH BID 07/13/19 Esomeprazole Magnesium [NexIUM] 20 mg PO DAILY 12/17/19 Gabapentin [Neurontin] 300 mg PO BID #60 cap 02/02/20 oxyCODONE-APAP 7.5-325MG [Percocet 7.5-325 mg] 1 tab PO DAILY PRN 30 Days #30 tab 02/02/20 Baclofen 5 mg PO BID 02/26/20 Fexofenadine HCl [Flora Allergy] 180 mg PO DAILY 02/26/20 Hydrocortisone [Cortef] 15 mg PO QAM 02/26/20 Multivitamins, Thera [Multivitamin (formulary)] 1 tab PO DAILY 02/26/20 Sulfamethox-Tmp 800-160Mg [Bactrim DS 800-160 mg] 1 tab PO MOWEFR 02/26/20 Controlled Substance Measures - Controlled Substance Measures Is patient prescribed a controlled substance at discharge?: Yes When asked, does pt state using other controlled substances?: No If prescribed controlled substance>3 days was MAPS reviewed?: Yes If Rx opioid, was Start Talking consent form obtained?: Yes If opioid is for acute pain is fill amount 7 days or less?: No Was information provided regarding opioid addiction?: Yes
== END | disposition home or self-care (01) ==
LOC: PNWHC3 07:19
PROVIDERS: ATTEND Anesthesiology
DX: Z53.9 Procedure and treatment not carried out, unspecified reason (principal)

== ENCOUNTER → 2020-04-26 | Day surgery (SDC) | payer MEDICARE, BC ==
[~2020-04-26] MED LIST changes: +ALBUTEROL NEB (CONC) 2.5 MG/0.5 ML INHALATION ONE; +ATROPINE SULFATE 0.4 MG/ML 1 ML VIAL IM ONE; +LIDOCAINE 1% INJ 10MG/ML (20 ML MDV) ONE; +LIDOCAINE 2% (PF) 20 MG/ML 5 ML VIAL INHALATION ONE; +LIDOCAINE 2% INJ 20 MG/ML INTRATRACH ONE; +LIDOCAINE VISCOUS 300 MG/15 ML CUP MUCOUS MEM ONE; +ONDANSETRON 4 MG/2 ML VIAL ONE; +PROPOFOL 10 MG/ML 20 ML VIAL IV ONE; +SODIUM CHLORIDE 0.9% 1,000 ML IV SCH
[2020-04-26 12:06] VITALS: TEMP 97.2
[2020-04-26 12:07] LABS: Glucose,Whole Blood 100 mg/dL (75-99)
[2020-04-26 13:56] VITALS: BP 100/62; PULSE 86; RESP 18
[2020-04-26 15:59] LABS: Appearance,BF Hazy; Color,BF Pink; Nucleated Cells, Body Fluid 50 /uL; RBC, Body Fluid 140150 /uL
[2020-04-26 16:35] LABS: Mononuclear WBC,Body Fluid 9 %; Polynuclear WBC,Body Fluid 88 %; Total Cells Counted,Body Fluid 100
--- NOTE | 2020-04-26 23:28 | PCN ---
PROCEDURE NOTE PULMONARY/CRITICAL CARE PROCEDURE NOTE: PROCEDURE: Bronchoscopy, airway examination, therapeutic lavage, BAL, right middle lobe. PREOPERATIVE DIAGNOSIS: Severe asthma and severe tracheobronchomalacia with retained secretions. POSTOPERATIVE DIAGNOSIS: Severe asthma and severe tracheobronchomalacia with retained secretions. Bello Loya CRNA, provided general anesthesia. The patient's procedure was done in room #2. There was informed consent and universal timeout. MATERIAL REQUIREMENTS PLANNING MANAGER: Dr. Snider. DESCRIPTION OF PROCEDURE: After the patient was adequately sedated and being fully monitored, the bronchoscope was inserted through the right nostril. It passed through the nasopharynx into the oropharynx. Once in the hypopharynx, the structures were identified and evaluated. The anterior commissure, true cords, false cords, arytenoids, piriform sinuses, right and left valleculae and epiglottis all appeared normal. After topicalization, the bronchoscope was pushed through the glottic opening into the trachea. There was a fair amount of tracheomalacia. I would grade it as being moderate to severe. The tracheal luz elena was sharp. There were secretions noted in the distal trachea. They were suctioned. The right and left mainstem were topicalized. The right upper lobe and its 3 segments, right middle lobe and its 2 segments, the right lower lobe and its 5 segments, the left upper lobe proper and its 2 segments, lingula and its 2 segments and the left lower lobe and its 4 segments all had similar findings of diffuse airway inflammation with erythema and hyperemia. There was vascular engorgement. There was some mucosal friability. There was no dominant mass or tumor. Throughout the airways, there were thick yellow secretions. They were suctioned with some difficulty with saline. The bronchoscope was wedged into the right middle lobe. Thirty mL was recovered. The fluid will be sent for analysis, including cytology as well as microbiology. There will also be cell counts and differentials done. Additional secretions were suctioned with the aid of saline lavage. The patient tolerated the procedure well. The bronchoscope was withdrawn. The patient will be recovered. I will speak to the patient's after the procedure. MMODL / IJN: [id number] /
== END ==
LOC: ORWHC2ENDO 11:43
PROVIDERS: ATTEND Internal Medicine Critical Care Medicine
DX: J39.8 Other specified diseases of upper respiratory tract (principal); J45.909 Unspecified asthma, uncomplicated; J42 Unspecified chronic bronchitis; J81.1 Chronic pulmonary edema; Z88.8 Allergy status to other drugs, medicaments and biological substances; Z88.1 Allergy status to other antibiotic agents; Z88.0 Allergy status to penicillin; Z88.6 Allergy status to analgesic agent
CPT/HCPCS: 87798 ×3; 87496; 87498; 87529; 88108; 88305; 89050; 87252; 87502; 87634; 87070; 87205; 87116; 87102; 87206; 31624; J2001 ×2; J0461; J2405; J2704

== ENCOUNTER → 2020-05-10 | Outpatient (CLI) | payer MEDICARE, BC ==
[~2020-05-10] MED LIST changes: -ALBUTEROL NEB (CONC) 2.5 MG/0.5 ML INHALATION ONE; -ATROPINE SULFATE 0.4 MG/ML 1 ML VIAL IM ONE; +ATROPINE SULFATE 0.4 MG/ML 1 ML VIAL ONE; -LACTATED RINGERS 1,000 ML IV SCH; -LIDOCAINE 1% INJ 10MG/ML (20 ML MDV) ONE; -LIDOCAINE 2% (PF) 20 MG/ML 5 ML VIAL INHALATION ONE; -LIDOCAINE 2% INJ 20 MG/ML INTRATRACH ONE; -LIDOCAINE VISCOUS 300 MG/15 ML CUP MUCOUS MEM ONE; -ONDANSETRON 4 MG/2 ML VIAL ONE; -PROPOFOL 10 MG/ML 20 ML VIAL IV ONE; -SODIUM CHLORIDE 0.9% 1,000 ML IV SCH
[2020-05-10 14:04] VITALS: BP 113/78; PULSE 89; RESP 18
--- NOTE | 2020-05-10 14:25 | P.PAINPG ---
Subjective Progress Note Date: 05/10/20 Subjective Progress Note Date: 03/02/20 This is a follow-up visit for this 69 y F patient with a history of severe and chronic low back pain secondary to lumbar degenerative disc disease, lumbar spondylosis with facet arthropathy, She has been managed with a combination of medication management and interventional pain procedures. She was scheduled to undergo transforaminal epidural steroid injection, unfortunately this was not able to be performed due to coronavirus pandemic. Pain is located in low back and left leg>right leg. She rates her pain as 6/10, not associated with numbness, weakness. Pain worse with walking, standing, better with sitting, laying down, medications. She reports that the medications are helping control her pain and improve activities of daily living. She continues to walk for exercise. She does report mild side effects from opiate medication including constipation. The patient currently on Percocet 7.5/325 once a day and Neurontin 300 mg twice a day ( she is using Xarelto because of PE ) and flexeril 10 mg BID. SHe says these medications have been controlling her pain adequately and she'd like to continue. At this time she is concerned about COVID19 and would like to hold off on any procedures. Here for refills today Review of systems is negative for chest pain, new onset weakness, abdominal pain, malaise, fever, night sweats, chills, homicidal or suicidal ideation, or bowel or bladder incontinence. She does endorse chronic SOB; she has COPD, asthma, tracheobronchomalacia. Objective Physical exam: Vitals: Reviewed in EMR GENERAL: Well appearing, in no acute distress PSYCH: Mood and affect is appropriate. Awake, alert, and oriented SKIN: Skin color, texture, turgor normal, no rashes or lesions HEENT: Normocephalic, atraumatic. EOM intact CV: No pedal edema RESP: Respirations are unlabored, no audible wheezing GI: Abdomen non-distended MUSCULOSKELETAL: Bilateral upper and lower extremity strength is normal and symmetric. No atrophy or tone abnormalities are noted. Neck: No pain to palpation over the cervical paraspinous muscles. Spurling negative, Axial Loading Test negative, Burleson's sign negative. No pain with neck flexion, extension, or lateral flexion. No obvious deformity or signs of trauma. Normal cervical lordotic curve and normal cervical spine range of motion Lumbar spine: Straight leg raising in the sitting position is positive for radicular pain. Pain over palpation of lumbar spine and paraspinous muscles. Decreased ROM with pain reproduction. Facet loading positive bilaterally. Decreased strength on left leg hip flexion, otherwise 5/5. Normal range of motion without pain reproduction Buttocks: pain to palpation over the PSIS, sacroiliac joint maneuvers are negative for pain. Extremities: Peripheral joint ROM is full and pain free without obvious instability or laxity in all four extremities. No edema or skin discolorations noted. Gait: Gait is normal NEUR: Bilateral upper and lower extremity coordination and muscle stretch reflexes are physiologic and symmetric. Negative clonus bilaterally. No loss of sensation is noted. Assessment and Plan Plan: Assessment and plan= chronic low back pain secondary to lumbar degenerative disc disease , lumbar spondylosis with lumbar facet arthropathy . Lumbar radiculopathy left L3 4 dermatomal distribution Patient continued to have severe low back pain after lumbar epidural steroid injections done recently, including most of the symptoms coming from the facetogenic component chronic and current use of high-risk medication (opioids) Patient denies any side effects of the current pain medication and the current treatment/medication helping the patient to do activity of daily living , The narcotic consent was signed and is on file MAPS Reviewed and it was appropriate . Medication managements= patient will be given prescription refills for Percocet 7.5/325 dispense 30 with one refill, continue Neurontin 300 mg twice a day with one refill Baclofen 5 mg BID PRN She will follow up in the pain clinic in 1 months Procedure= in the future patient could be good candidate to have left sided transforaminal epidural steroid injection at L3 4. Patient wants to delay this for sometime as she has chronic SOB due to COPD, asthma, tracheobronchomalacia and is worried about COVID19. She will call the clinic to schedule this. PQRS Measure Charge Sheet PQRS Narrative: Smoking Status Former smoker Narcotic Agreement Date Signed 12/09/18 Pain Intensity [Lower Back] 7 Scale Used Numeric (1 - 10) Hx Alcohol Use (MH) No Controlled Substance Measures - Controlled Substance Measures Is patient prescribed a controlled substance at discharge?: Yes When asked, does pt state using other controlled substances?: No If prescribed controlled substance>3 days was MAPS reviewed?: Yes If Rx opioid, was Start Talking consent form obtained?: Yes If opioid is for acute pain is fill amount 7 days or less?: No Was information provided regarding opioid addiction?: Yes PQRS Measure Charge Sheet Measure #226: Tobacco Use: Screen & Cessation Intervention: Pt not a tobacco user Measure #111: Pneumonia Vaccination: Pneumococcal vaccine administered or previously received Measure #47: Advance Care Plan: Advance care planning discussed & documented, pt chose/unable to give Measure #412: Opioid Treatment Agreement: Documented signed opioid trtmnt agreemnt min once during opioid trtmnt Measure #408: Opioid Therapy Follow-up Evaluation: Patient had f/u eval minimum every 3 months during opioid therapy Measure #317: Preventitive Care & Scrn High Bld Press & F/U: Normal blood pressure, f/u not required Measure #128: Body Mass Index (BMI) Screening & Follow-up: BMI documented ABOVE normal parameters - f/u documented Measure #131: Pain Assessment & Follow-up: Pain positive & plan documented Measure #431: Unhealthy Alcohol Use Preventative Care & Scrn: Patient not identified as an unhealthy alcohol user PQRS Narrative: Smoking Status Former smoker Narcotic Agreement Date Signed 12/09/18 Pain Intensity [Lower Back] 7 Hx Alcohol Use (MH) No Home Medications: Ambulatory Orders Albuterol Inhaler (Mhu) [Ventolin Hfa Inhaler (Mhu)] 2 puff INHALATION Q6HR PRN 11/05/14 Calcium Carbonate/Vitamin D3 [Calcium 600-Vit D3 400 Tablet] 1 tab PO BID 06/25/15 Vit C/E/Zn/Coppr/Lutein/Zeaxan [Preservision Areds 2 Softgel] 1 cap PO BID 01/09/17 Ubidecarenone [Co Q-10] 200 mg PO DAILY 02/24/17 Rivaroxaban [Xarelto] 10 mg PO QAM 08/27/17 Ipratropium-Albuterol Nebulize [Duoneb 0.5 mg-3 mg/3 ml Soln] 3 ml INHALATION TID PRN 05/28/18 Ascorbic Acid [Vitamin C] 500 mg PO DAILY #0 06/27/18 Benzonatate [Tessalon Perles] 100 mg PO TID PRN 06/27/18 Cholecalciferol [Vitamin D3 (25 Mcg = 1000 Iu)] 1,000 unit PO DAILY 06/27/18 Levothyroxine Sodium [Synthroid] 112 mcg PO QAM 06/27/18 Magnesium Gluconate [Magonate] 500 mg PO DAILY 06/27/18 Rosuvastatin Calcium [Crestor] 5 mg PO HS 06/27/18 Losartan Potassium 100 mg PO QAM 10/31/18 hydroCHLOROthiazide 25 mg PO QAM 10/31/18 Fluticasone Propionate [Flovent Hfa 220 mcg] 2 puff INHALATION BID 04/01/19 Xolair(Dose Unkown) 1 injection IJ QMONTH 04/01/19 Docusate [Colace] 100 mg PO DAILY PRN 06/24/19 Vitamin C/Biotin [Hair, Skin and Nails] 2 tab PO DAILY 07/02/19 Denosumab [Prolia] 60 mg SQ Q180D 07/13/19 Diltiazem Cd [Cardizem Cd] 240 mg PO 1600 07/13/19 Salmeterol Xinafoate [Serevent Diskus] 50 mcg IH BID 07/13/19 Esomeprazole Magnesium [NexIUM] 20 mg PO QAM 12/17/19 Fexofenadine HCl [Flora Allergy] 180 mg PO QAM 02/26/20 Multivitamins, Thera [Multivitamin (formulary)] 1 tab PO DAILY 02/26/20 Sulfamethox-Tmp 800-160Mg [Bactrim DS 800-160 mg] 1 tab PO MOWEFR 02/26/20 Baclofen 5 mg PO BID PRN 04/22/20 Hydrocortisone [Cortef] 5 mg PO PC-SUPPER 04/22/20 Hydrocortisone [Cortef] 15 mg PO QAM 04/22/20 oxyCODONE-APAP 7.5-325MG [Percocet 7.5-325 mg] 1 tab PO DAILY PRN 04/22/20 Gabapentin [Neurontin] 300 mg PO BID #60 cap 05/10/20 Controlled Substance Measures - Controlled Substance Measures Is patient prescribed a controlled substance at discharge?: Yes When asked, does pt state using other controlled substances?: No If prescribed controlled substance>3 days was MAPS reviewed?: Yes If Rx opioid, was Start Talking consent form obtained?: Yes If opioid is for acute pain is fill amount 7 days or less?: No Was information provided regarding opioid addiction?: No
== END | disposition home or self-care (01) ==
LOC: PNWHC3 13:50
PROVIDERS: ATTEND Anesthesiology
DX: M51.16 Intervertebral disc disorders with radiculopathy, lumbar region (principal); M46.96 Unspecified inflammatory spondylopathy, lumbar region; M47.26 Other spondylosis with radiculopathy, lumbar region; G89.29 Other chronic pain; Z87.891 Personal history of nicotine dependence; Z79.891 Long term (current) use of opiate analgesic; Z79.899 Other long term (current) drug therapy; Z79.890 Hormone replacement therapy; Z79.52 Long term (current) use of systemic steroids
CPT/HCPCS: 80307; G0482; G0463; 99211

== ENCOUNTER → 2020-06-06 | Outpatient (CLI) | payer MEDICARE, BC ==
[2020-06-06 11:11] VITALS: BP 114/77; PULSE 84; RESP 14; TEMP 98.1
--- NOTE | 2020-06-06 11:41 | P.PAINPG ---
Subjective Progress Note Date: 06/06/20 This is a follow-up visit for this 69 y F patient with a history of severe and chronic low back pain secondary to lumbar degenerative disc disease, lumbar spondylosis with facet arthropathy, Recently we have done RFA of the medial branch lumbar area, patient reports good benefit from this. Her current pain is located in the left lower back, radiating to left lower extremity. She rates her pain as 4/10. She is maintained with a series of pain medications and interventions. She reports that the medications are helping control her pain and improve activities of daily living. She continues to walk for exercise. She does report mild side effects from opiate medication including constipation. The patient currently on Percocet 7.5/325 once a day and Neurontin 300 mg 2 tablet twice a day ( she is using Xeralto because of PE ) and baclofen 5 mg twice a day. Patient here today for follow-up visit and medication refill. She is cleaning of some numbness in the left lower extremities Review of systems is negative for chest pain, shortness of breath, new onset weakness, abdominal pain, malaise, fever, night sweats, chills, homicidal or suicidal ideation, or bowel or bladder incontinence. Objective - Vital Signs Vital signs: Vital Signs Temp 98.1 F 06/06/20 10:52 Pulse 84 06/06/20 10:52 Resp 14 06/06/20 10:52 BP 114/77 06/06/20 10:52 Pulse Ox 97 06/06/20 10:52 - Exam -Constitutiona : Cooperative , not in acute distress . -HEENT : nech ; supple , no Lymphadenopathy , normal thyroid size . eyes : no ptosis , no icterus, no photophobia . -Musculoskeletal Lumber spine moter stegnth lower extremities ,thigh and legs 4/5 Right side , 4/5 Left side deep tendon reflexes : normal Knee Jerk , normal ankle Jerk positive lumber facet Loading Test Range of motion of the lumbar spine Flexion 30 degrees, extension 10 degrees strait leg raising test , positive at 30 degree Fabere test positive RT and positive LT . Assessment and Plan Plan: chronic low back pain secondary to lumbar degenerative disc disease , lumbar spondylosis with lumbar facet arthropathy . Lumbar radiculopathy left L3 4 dermatomal distribution Patient continued to have severe low back pain after lumbar epidural steroid injections done recently, including most of the symptoms coming from the facetogenic component She complained of frequent episodes of muscle spasm in the low back and lower extremity chronic and current use of high-risk medication (opioids) Patient denies any side effects of the current pain medication and the current treatment/medication helping the patient to do activity of daily living , Diagnoses, prognosis, treatment options, including but not limited to physical therapy, medication management, interventional therapies, and surgery, were discussed with the patient All the questions answered The narcotic consent was signed and patient agreed and understood the side effects and complications of opioid treatment. Patient signed the narcotic agreement, and was orally counseled, not to overuse, not to abuse, not to Divert , not tp sell pain medication, and to take it as prescribed only, Patient was counseled not to drive or operate heavy equipment while using narcotic medication, and advised not to use alcohol or any Illicit drugs while using the narcotis, understanding that lack of compliance with any of the above instructions, will likely to cause discharge from, the pain service, not to renew his narcotic prescriptions MAPS Reviwed and it was apropriate . Medication managements= patient will be given prescription refills for Percocet 7.5/325 dispense 30 with one refill, continue Neurontin 300 mg 2 tablet twice a day with one refill Baclofen 5 mg twice a day with one refill She will follow up in the pain clinic in 2 months Time with Patient: Less than 30 PQRS Measure Charge Sheet Measure #130: Documentation of Current Meds in Medical Chart: Patient's medications documented in chart Measure #226: Tobacco Use: Screen & Cessation Intervention: Pt not a tobacco user Measure #111: Pneumonia Vaccination: Pneumococcal vaccine administered or previously received Measure #47: Advance Care Plan: Advance care planning discussed & documented, pt chose/unable to give Measure #412: Opioid Treatment Agreement: Documented signed opioid trtmnt agreemnt min once during opioid trtmnt Measure #408: Opioid Therapy Follow-up Evaluation: Patient had f/u eval minimum every 3 months during opioid therapy Measure #317: Preventitive Care & Scrn High Bld Press & F/U: Normal blood pressure, f/u not required Measure #128: Body Mass Index (BMI) Screening & Follow-up: BMI documented ABOVE normal parameters - f/u documented Measure #131: Pain Assessment & Follow-up: Pain positive & plan documented, Follow-up scheduled Measure #431: Unhealthy Alcohol Use Preventative Care & Scrn: Patient not identified as an unhealthy alcohol user PQRS Narrative: Smoking Status Former smoker Narcotic Agreement Date Signed 05/10/20 Blood Pressure 114/77 Pain Intensity [Back] 7 Scale Used Numeric (1 - 10) Hx Alcohol Use (MH) No Home Medications: Ambulatory Orders Albuterol Inhaler (Mhu) [Ventolin Hfa Inhaler (Mhu)] 2 puff INHALATION Q6HR PRN 11/05/14 Calcium Carbonate/Vitamin D3 [Calcium 600-Vit D3 400 Tablet] 1 tab PO BID 06/25/15 Vit C/E/Zn/Coppr/Lutein/Zeaxan [Preservision Areds 2 Softgel] 1 cap PO BID 01/09/17 Ubidecarenone [Co Q-10] 200 mg PO DAILY 02/24/17 Rivaroxaban [Xarelto] 10 mg PO QAM 08/27/17 Ipratropium-Albuterol Nebulize [Duoneb 0.5 mg-3 mg/3 ml Soln] 3 ml INHALATION TID PRN 05/28/18 Ascorbic Acid [Vitamin C] 500 mg PO DAILY #0 06/27/18 Benzonatate [Tessalon Perles] 100 mg PO TID PRN 06/27/18 Cholecalciferol [Vitamin D3 (25 Mcg = 1000 Iu)] 1,000 unit PO DAILY 06/27/18 Levothyroxine Sodium [Synthroid] 112 mcg PO QAM 06/27/18 Magnesium Gluconate [Magonate] 500 mg PO DAILY 06/27/18 Rosuvastatin Calcium [Crestor] 5 mg PO HS 06/27/18 Losartan Potassium 100 mg PO QAM 10/31/18 hydroCHLOROthiazide 25 mg PO QAM 10/31/18 Xolair(Dose Unkown) 1 injection IJ QMONTH 04/01/19 Docusate [Colace] 100 mg PO DAILY PRN 06/24/19 Vitamin C/Biotin [Hair, Skin and Nails] 2 tab PO DAILY 07/02/19 Denosumab [Prolia] 60 mg SQ Q180D 07/13/19 Diltiazem Cd [Cardizem Cd] 240 mg PO 1600 07/13/19 Salmeterol Xinafoate [Serevent Diskus] 50 mcg IH BID 07/13/19 Esomeprazole Magnesium [NexIUM] 20 mg PO QAM 12/17/19 Fexofenadine HCl [Flora Allergy] 180 mg PO QAM 02/26/20 Multivitamins, Thera [Multivitamin (formulary)] 1 tab PO DAILY 02/26/20 Sulfamethox-Tmp 800-160Mg [Bactrim DS 800-160 mg] 1 tab PO MOWEFR 02/26/20 Hydrocortisone [Cortef] 5 mg PO PC-SUPPER 04/22/20 Hydrocortisone [Cortef] 15 mg PO QAM 04/22/20 Fluticasone Propionate [Flovent Diskus] 250 mcg INHALATION BID 06/01/20 Baclofen 5 mg PO BID PRN #60 tab 06/06/20 Gabapentin [Neurontin] 300 mg PO BID #60 cap 06/06/20 oxyCODONE HCL/ACETAMINOPHEN [Percocet 7.5-325 mg] 1 tab PO Q8HR PRN 30 Days #30 tab 06/06/20 oxyCODONE-APAP 7.5-325MG [Percocet 7.5-325 mg] 1 tab PO DAILY PRN 30 Days #30 tab 06/06/20 Controlled Substance Measures - Controlled Substance Measures Is patient prescribed a controlled substance at discharge?: Yes
== END | disposition home or self-care (01) ==
LOC: PNWHC3 10:19
PROVIDERS: ATTEND Specialist
DX: G89.29 Other chronic pain (principal); M51.16 Intervertebral disc disorders with radiculopathy, lumbar region; M47.26 Other spondylosis with radiculopathy, lumbar region; Z87.891 Personal history of nicotine dependence; Z79.899 Other long term (current) drug therapy; Z98.890 Other specified postprocedural states
CPT/HCPCS: 99211

== ENCOUNTER → 2020-08-01 | Outpatient (CLI) | payer MEDICARE, BC ==
[2020-08-01 10:10] VITALS: BP 143/72; PULSE 80; RESP 20; TEMP 98.9
--- NOTE | 2020-08-01 10:43 | P.PAINPG ---
Subjective Progress Note Date: 08/01/20 Elsie 7-year-old female chronic low back pain. She has chronic COPD and morbid obesity. She presents today with continued low back pain radiating to both legs. She reports that injections have been helping transiently. She has been on chronic steroid therapy for COPD. She reports that she has not been moving around a lot secondary to pain. Pain medication does help. She is not sleeping well and trial melatonin per her lung doctor which did not help significantly. She uses the medication as prescribed and denies any side effects of medication. Reports her VAS today is 7 out of 10. There are no new symptoms last time with seen her. She is trying not to go out much due to the COVID pandemic and her chronic lung issues. 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 Flexion and extension lumbar spine are limited secondary to pain. Sacroiliac joints: Unable to assess secondary to body habitus Neuro exam: Normal sensation bilateral lower extremities. Normal sensation bilateral upper extremities. Deep tendon reflexes upper extremities are normal. Deep tendon reflexes are decreased bilaterally in the lower extremities Psych exam: Cooperative, appropriate mood Assessment and Plan Assessment: #1 Lumbar spondylosis without myelopathy #2 lumbar radiculopathy #3 morbid obesity #4 chronic opioid dependence Plan: We discussed using medication only as needed. We discussed weight loss in detail. We discussed how to limit caloric intake to decrease her overall weight. We have increase her gabapentin to 600 mg at nighttime and 300 mg during the day. I may help assist her in sleeping and decrease the muscle spasm she is having at nighttime. We will attempt to wean off the baclofen and see if that is making any difference for her. She may benefit from decreasing overall medication usage is. She will use a pain medication only as needed. I will send a prescription to her pharmacy today. PQRS Measure Charge Sheet Measure #130: Documentation of Current Meds in Medical Chart: Patient's medications documented in chart Measure #226: Tobacco Use: Screen & Cessation Intervention: Pt not a tobacco user Measure #111: Pneumonia Vaccination: Pneumococcal vaccine administered or prev iously received Measure #47: Advance Care Plan: Advance care planning discussed & documented, plan or surrogate given Measure #412: Opioid Treatment Agreement: Documented signed opioid trtmnt agreemnt min once during opioid trtmnt Measure #408: Opioid Therapy Follow-up Evaluation: Patient had f/u eval minimum every 3 months during opioid therapy Measure #317: Preventitive Care & Scrn High Bld Press & F/U: Normal blood pressure, f/u not required Measure #128: Body Mass Index (BMI) Screening & Follow-up: BMI documented ABOVE normal parameters - f/u documented Measure #131: Pain Assessment & Follow-up: Pain positive & plan documented Measure #431: Unhealthy Alcohol Use Preventative Care & Scrn: Patient not identified as an unhealthy alcohol user PQRS Narrative: Smoking Status Former smoker Narcotic Agreement Date Signed 05/10/20 Blood Pressure 143/72 Pain Intensity [Lower Back] 8 Scale Used Numeric (1 - 10) Hx Alcohol Use (MH) No Home Medications: Ambulatory Orders Albuterol Inhaler (Mhu) [Ventolin Hfa Inhaler (Mhu)] 2 puff INHALATION Q6HR PRN 11/05/14 Vit C/E/Zn/Coppr/Lutein/Zeaxan [Preservision Areds 2 Softgel] 1 cap PO BID 01/09/17 Ubidecarenone [Co Q-10] 200 mg PO DAILY 02/24/17 Rivaroxaban [Xarelto] 10 mg PO QAM 08/27/17 Ipratropium-Albuterol Nebulize [Duoneb 0.5 mg-3 mg/3 ml Soln] 3 ml INHALATION TID PRN 05/28/18 Ascorbic Acid [Vitamin C] 500 mg PO DAILY #0 06/27/18 Benzonatate [Tessalon Perles] 100 mg PO TID PRN 06/27/18 Cholecalciferol [Vitamin D3 (25 Mcg = 1000 Iu)] 1,000 unit PO DAILY 09/21/18 Levothyroxine Sodium [Synthroid] 112 mcg PO QAM 06/27/18 Magnesium Gluconate [Magonate] 500 mg PO DAILY 06/27/18 Rosuvastatin Calcium [Crestor] 5 mg PO HS 06/27/18 Losartan Potassium 100 mg PO QAM 10/31/18 hydroCHLOROthiazide 25 mg PO QAM 10/31/18 Xolair(Dose Unkown) 1 injection IJ QMONTH 04/01/19 Docusate [Colace] 100 mg PO DAILY PRN 06/24/19 Vitamin C/Biotin [Hair, Skin and Nails] 2 tab PO DAILY 07/02/19 Denosumab [Prolia] 60 mg SQ Q180D 07/13/19 Diltiazem Cd [Cardizem Cd] 240 mg PO 1600 07/13/19 Salmeterol Xinafoate [Serevent Diskus] 1 puff INHALATION BID 07/13/19 Esomeprazole Magnesium [NexIUM] 20 mg PO QAM 12/17/19 Fexofenadine HCl [Flora Allergy] 180 mg PO QAM 02/26/20 Multivitamins, Thera [Multivitamin (formulary)] 1 tab PO DAILY 02/26/20 Sulfamethox-Tmp 800-160Mg [Bactrim DS 800-160 mg] 1 tab PO MOWEFR 02/26/20 Hydrocortisone [Cortef] 5 mg PO PC-SUPPER 04/22/20 Hydrocortisone [Cortef] 15 mg PO QAM 04/22/20 Joni/D3/Mag11/Zinc/Psychiatric Assistant/Jaylon/Bor [Caltrate 600+D Plus Tablet] 1 each PO DAILY 07/28/20 Doxycycline [Vibramycin] 100 mg PO BID 07/28/20 Fluticasone Propionate 220 Mcg [Flovent 220 Mcg Inhaler (Mhu)] 2 puff INHALATION RT-BID 07/28/20 Melatonin 10 mg PO HS 07/28/20 Baclofen 5 mg PO BID #30 tab 08/01/20 Gabapentin [Neurontin] 300 mg PO TID #90 cap 08/01/20 oxyCODONE-APAP 7.5-325MG [Percocet 7.5-325 mg] 1 tab PO DAILY PRN 30 Days #30 tab MDD 2 08/01/20 Controlled Substance Measures - Controlled Substance Measures Is patient prescribed a controlled substance at discharge?: Yes When asked, does pt state using other controlled substances?: No If prescribed controlled substance>3 days was MAPS reviewed?: Yes If Rx opioid, was Start Talking consent form obtained?: Yes If opioid is for acute pain is fill amount 7 days or less?: No Was information provided regarding opioid addiction?: Yes
== END | disposition home or self-care (01) ==
LOC: PNWHC3 09:52
PROVIDERS: ATTEND Hospitalist
DX: M47.26 Other spondylosis with radiculopathy, lumbar region (principal); E66.01 Morbid (severe) obesity due to excess calories; F11.20 Opioid dependence, uncomplicated; F17.200 Nicotine dependence, unspecified, uncomplicated; Z79.899 Other long term (current) drug therapy; Z79.01 Long term (current) use of anticoagulants; Z79.890 Hormone replacement therapy; Z79.52 Long term (current) use of systemic steroids
CPT/HCPCS: 99211

== ENCOUNTER 2020-08-08 04:12 | Emergency (ER) | payer MEDICARE, BC ==
[2020-08-08] MEDS ORDERED: methylPREDNISolone SOD SUCCI 125 MG/2 ML VIAL IV STA (04:39)
[2020-08-08] MEDS ORDERED: IPRATROPIUM-ALBUTEROL 3 ML NEB INHALATION STA (04:39)
[2020-08-08 04:51] LABS: Basophils # (A) 0.1 k/uL (0-0.2); Basophils % (A) 1 %; Eosinophils # (A) 0.2 k/uL (0-0.7); Eosinophils % (A) 3 %; HCT 41.1 % (34.0-46.0); HGB 12.7 gm/dL (11.4-16.0); Lymphocytes # (A) 1.8 k/uL (1.0-4.8); Lymphocytes % (A) 24 %; MCH 29.6 pg (25.0-35.0); MCHC 30.8 g/dL (31.0-37.0); MCV 96.1 fL (80.0-100.0); Mean Platelet Volume 9.4; Monocytes # (A) 0.6 k/uL (0-1.0); Monocytes % (A) 8 %; Neutrophils # (A) 4.6 k/uL (1.3-7.7); Neutrophils % (A) 61 %; Platelet Count 213 k/uL (150-450); RBC 4.28 m/uL (3.80-5.40); RDW 13.6 % (11.5-15.5); WBC 7.5 k/uL (3.8-10.6)
[2020-08-08 05:02] LABS: Calcium 9.5 mg/dL (8.4-10.2)
[2020-08-08 05:21] LABS: Albumin 4.3 g/dL (3.5-5.0); Potassium 4.7 mmol/L (3.5-5.1); Total Protein 7.2 g/dL (6.3-8.2)
[2020-08-08 05:26] VITALS: RESP 20
[2020-08-08] MEDS ORDERED: SODIUM CHLORIDE 0.9% 1,000 ML IV ONE (05:29)
--- NOTE | 2020-08-08 05:34 | ED ---
SOB HPI - General Chief Complaint: Shortness of Breath Stated Complaint: CECILIA Time Seen by Provider: 08/08/20 04:34 Source: patient Mode of arrival: wheelchair - History of Present Illness Initial Comments: Elsie is a 70yo F with PMH of COPD/Asthma who presents to the ER today via private vehicle for evaluation of persistent shortness of breath. Patient reports she's been feeling short of breath for couple days she refused breathing treatment earlier tonight with no improvement. She denies any productive cough, fevers chills or body aches. Denies any concern for COVID 19. She does follow with medical record specialist for her COPD and bronchopulmonary dysplasia. She states that she hasn't seen her medical record specialist for couple of months but did see her primary care for approximately 2 weeks ago did a 60 Medrol Dosepak she was feeling better after that but since ending that she is progressively felt worse. - Related Data Home Medications Medication Instructions Recorded Confirmed Albuterol Inhaler (Mhu) [Ventolin 2 puff INHALATION Q6HR PRN 11/05/14 08/01/20 Hfa Inhaler (Mhu)] Vit C/E/Zn/Coppr/Lutein/Zeaxan 1 cap PO BID 01/09/17 08/01/20 [Preservision Areds 2 Softgel] Ubidecarenone [Co Q-10] 200 mg PO DAILY 02/24/17 08/01/20 Rivaroxaban [Xarelto] 10 mg PO QAM 08/27/17 08/01/20 Ipratropium-Albuterol Nebulize 3 ml INHALATION TID PRN 05/28/18 08/01/20 [Duoneb 0.5 mg-3 mg/3 ml Soln] Ascorbic Acid [Vitamin C] 500 mg PO DAILY #0 06/27/18 08/01/20 Benzonatate [Tessalon Perles] 100 mg PO TID PRN 06/27/18 08/01/20 Cholecalciferol [Vitamin D3 (25 1,000 unit PO DAILY 06/27/18 08/01/20 Mcg = 1000 Iu)] Levothyroxine Sodium [Synthroid] 112 mcg PO QAM 06/27/18 08/01/20 Magnesium Gluconate [Magonate] 500 mg PO DAILY 06/27/18 08/01/20 Rosuvastatin Calcium [Crestor] 5 mg PO HS 06/27/18 08/01/20 Losartan Potassium 100 mg PO QAM 10/31/18 08/01/20 hydroCHLOROthiazide 25 mg PO QAM 10/31/18 08/01/20 Xolair(Dose Unkown) 1 injection IJ QMONTH 04/01/19 08/01/20 Docusate [Colace] 100 mg PO DAILY PRN 06/24/19 08/01/20 Vitamin C/Biotin [Hair, Skin and 2 tab PO DAILY 07/02/19 08/01/20 Nails] Denosumab [Prolia] 60 mg SQ Q180D 07/13/19 08/01/20 Diltiazem Cd [Cardizem Cd] 240 mg PO 1600 07/13/19 08/01/20 Salmeterol Xinafoate [Serevent 1 puff INHALATION BID 07/13/19 08/01/20 Diskus] Esomeprazole Magnesium [NexIUM] 20 mg PO QAM 12/17/19 08/01/20 Fexofenadine HCl [Flora Allergy] 180 mg PO QAM 02/26/20 08/01/20 Multivitamins, Thera [Multivitamin 1 tab PO DAILY 02/26/20 08/01/20 (formulary)] Sulfamethox-Tmp 800-160Mg [Bactrim 1 tab PO MOWEFR 02/26/20 08/01/20 DS 800-160 mg] Hydrocortisone [Cortef] 5 mg PO PC-SUPPER 04/22/20 08/01/20 Hydrocortisone [Cortef] 15 mg PO QAM 04/22/20 08/01/20 Joni/D3/Mag11/Zinc/[place]/Jaylon/Bor 1 each PO DAILY 07/28/20 08/01/20 [Caltrate 600+D Plus Tablet] Doxycycline [Vibramycin] 100 mg PO BID 07/28/20 08/01/20 Fluticasone Propionate 220 Mcg 2 puff INHALATION RT-BID 07/28/20 08/01/20 [Flovent 220 Mcg Inhaler (Mhu)] Melatonin 10 mg PO HS 07/28/20 08/01/20 Previous Rx's Medication Instructions Recorded Baclofen 5 mg PO BID #30 tab 08/01/20 Gabapentin 300 mg PO TID 30 Days #90 cap 08/01/20 oxyCODONE-APAP 7.5-325MG [Percocet 1 tab PO DAILY PRN 30 Days #30 tab 08/01/20 7.5-325 mg] MDD 2 predniSONE [Deltasone] 40 mg PO DAILY 5 Days #10 tab 08/08/20 Allergies Allergy/AdvReac Type Severity Reaction Status Date / Time cefuroxime axetil Allergy Dyspnea Verified 08/01/20 10:02 [From Ceftin] moxifloxacin HCl Allergy Dyspnea Verified 08/01/20 10:02 [From Avelox] Penicillins Allergy Dyspnea Verified 08/01/20 10:02 rofecoxib [From Vioxx] Allergy Dyspnea Verified 08/01/20 10:02 blackberry Allergy Rash/Hives Uncoded 08/01/20 10:02 Review of Systems ROS Statement: Those systems with pertinent positive or pertinent negative responses have been documented in the HPI. ROS Other: All systems not noted in ROS Statement are negative. 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 History of Any Multi-Drug Resistant Organisms: None Reported Past Surgical History: Section, Cholecystectomy, Heart Catheterization, Orthopedic Surgery, Tonsillectomy Additional Past Surgical History / Comment(s): RIGHT CARPAL TUNNEL RELEASE ON 04/22/20. R ankle plate/screws, L wrist carpal tunnel release, multiple bronchoscopies, bronchial thermoplasty x3, EGDs, colonoscopies/polypectomy, deviated septal surgery, [facility] pain clinic procedures, PICC/later removed, bilateral cataract removals/lens implants. Past Anesthesia/Blood Transfusion Reactions: Family History of Problems w/ Anesthesia, Postoperative Nausea & Vomiting (PONV) Additional Past Anesthesia/Blood Transfusion Reaction / Comment(s): Pt has never received blood. Occ nausea. DAUGHTER PONV Past Psychological History: No Psychological Hx Reported Smoking Status: Former smoker Past Alcohol Use History: None Reported Past Drug Use History: None Reported - Past Family History Father Family Medical History: Cancer Additional Family Medical History / Comment(s): Colon cancer. Mother Family Medical History: Congestive Heart Failure (CHF), COPD Additional Family Medical History / Comment(s): Mother lived to be 80 yrs old. Daughter(s) Family Medical History: Deep Vein Thrombosis (DVT) General Exam - General Exam Comments Initial Comments: Physical Exam GENERAL: Chronically ill-appearing morbidly obese female Patient is well-developed and well-nourished. Patient is nontoxic and well-hydrated and is in no distress. HENT: Normocephalic, Atraumatic. EYES: PERRL, EOMI PULMONARY: oxygen saturation 97% on room air Mild expiratory wheezing most prominent in the right upper lobes CARDIOVASCULAR: There is a regular rate and rhythm without any murmurs gallops or rubs. ABDOMEN: Soft and nontender with normal bowel sounds. SKIN: Skin is clear with no lesions or rashes and otherwise unremarkable. : Deferred NEUROLOGIC: Patient is alert and oriented x3. Moving all extremities spontaneously MUSCULOSKELETAL: Normal extremities with adequate strength and full range of motion. No lower extremity swelling or edema. No calf tenderness. PSYCHIATRIC: Normal psychiatric evaluation. Course Vital Signs 08/08/20 08/08/20 08/08/20 04:16 05:00 05:05 Temperature 98.5 F Pulse Rate 80 73 70 Respiratory 24 Rate Blood Pressure 132/64 O2 Sat by Pulse 96 Oximetry 08/08/20 05:20 Temperature 98.7 F Pulse Rate 78 Respiratory 20 Rate Blood Pressure 139/71 O2 Sat by Pulse 97 Oximetry Medical Decision Making - Medical Decision Making patient was seen and evaluated history is obtained from the patient History and physical exam are concerning for COPD exacerbation, mild expiratory wheezing on exam No hypoxia Chest x-ray and breathing treatments were ordered EKG was nonischemic Chest x-ray with no acute findings A she reported feeling much better after breathing treatments and steroids comfortable with plan for discharge home and outpatient follow-up with Dr. Enrique Close return parameters were discussed or questions pertaining care were answered patient discharged home in stable condition - Lab Data Result diagrams: 08/08/20 04:42 08/08/20 04:42 Lab Results 08/08/20 08/08/20 Range/Units 04:42 04:42 WBC 7.5 (3.8-10.6) k/uL RBC 4.28 (3.80-5.40) m/uL Hgb 12.7 (11.4-16.0) gm/dL Hct 41.1 (34.0-46.0) % MCV 96.1 (80.0-100.0) fL MCH 29.6 (25.0-35.0) pg MCHC 30.8 L (31.0-37.0) g/dL RDW 13.6 (11.5-15.5) % Plt Count 213 (150-450) k/uL Neutrophils % 61 % Lymphocytes % 24 % Monocytes % 8 % Eosinophils % 3 % Basophils % 1 % Neutrophils # 4.6 (1.3-7.7) k/uL Lymphocytes # 1.8 (1.0-4.8) k/uL Monocytes # 0.6 (0-1.0) k/uL Eosinophils # 0.2 (0-0.7) k/uL Basophils # 0.1 (0-0.2) k/uL Sodium 137 (137-145) mmol/L Potassium 4.7 (3.5-5.1) mmol/L Chloride 104 (98-107) mmol/L Carbon Dioxide 26 (22-30) mmol/L Anion Gap 7 mmol/L BUN 36 H (7-17) mg/dL Creatinine 1.20 H (0.52-1.04) mg/dL Est GFR (CKD-EPI)AfAm 53 (>60 ml/min/1.73 sqM) Est GFR (CKD-EPI)NonAf 46 (>60 ml/min/1.73 sqM) Glucose 92 (74-99) mg/dL Calcium 9.5 (8.4-10.2) mg/dL Total Bilirubin 1.0 (0.2-1.3) mg/dL AST 41 H (14-36) U/L ALT 33 (4-34) U/L Alkaline Phosphatase 50 (38-126) U/L Total Protein 7.2 (6.3-8.2) g/dL Albumin 4.3 (3.5-5.0) g/dL - EKG Data -: EKG Interpreted by Me EKG Comments: EKG was obtained due to complaint of shortness breath, EKG obtained at 4:23 AM, rate is 79 rhythm is sinus with left trachea hypertrophy, NH 132, QRS 78, QTC 442 there are no acute ST elevations or depressions no evidence of ischemia or infarction. Disposition Clinical Impression: COPD with exacerbation Disposition: HOME SELF-CARE Condition: Stable Additional Instructions: Take prednisone daily for 5 days starting tomorrow Follow up with Dr Snider this week Prescriptions: predniSONE [Deltasone] 40 mg PO DAILY 5 Days #10 tab Is patient prescribed a controlled substance at d/c from ED?: No Referrals: Laurent Gramajo DO [Primary Care Provider] - 1-2 days
--- NOTE | 2020-08-08 06:05 | XR ---
EXAM: XR Chest, 2 Views CLINICAL HISTORY: ITS.REASON XR Reason: difficulty breathing TECHNIQUE: Frontal and lateral views of the chest. COMPARISON: No relevant prior studies available. FINDINGS/IMPRESSION: Low lung volumes secondary to poor inspiration, which accentuates bronchovascular markings. No focal consolidation, pleural effusion, or pneumothorax. The heart is enlarged. The aorta is calcified and tortuous. Degenerative changes of the spine.
[2020-08-08 06:54] VITALS: BP 135/68; PULSE 84; TEMP 98.2
== END 2020-08-08 06:50 | disposition home or self-care (01) ==
LOC: EC 04:12
DX: J44.1 Chronic obstructive pulmonary disease with (acute) exacerbation (principal); I10 Essential (primary) hypertension; M19.90 Unspecified osteoarthritis, unspecified site; E07.9 Disorder of thyroid, unspecified; Z79.01 Long term (current) use of anticoagulants; Z79.51 Long term (current) use of inhaled steroids; Z79.899 Other long term (current) drug therapy; Z87.891 Personal history of nicotine dependence; Z86.711 Personal history of pulmonary embolism; Z95.5 Presence of coronary angioplasty implant and graft; Z98.42 Cataract extraction status, left eye; Z98.41 Cataract extraction status, right eye; Z96.1 Presence of intraocular lens; Z88.0 Allergy status to penicillin; Z88.1 Allergy status to other antibiotic agents; Z91.018 Allergy to other foods; E66.01 Morbid (severe) obesity due to excess calories; Z68.41 Body mass index [BMI] 40.0-44.9, adult
CPT/HCPCS: 36415; 94640; 93005; 80053; 85025; 71046; 99285; 96374; 96361; J2930

== ENCOUNTER → 2020-10-17 | Outpatient (CLI) | payer MEDICARE, BC ==
[2020-10-17 09:43] VITALS: BP 129/67; PULSE 75; RESP 20; TEMP 98.6
--- NOTE | 2020-10-17 10:12 | P.PN ---
Subjective Progress Note Date: 10/17/20 This is a follow-up visit for this 70 years old female with a history of severe and chronic low back pain secondary to lumbar degenerative disc disease, lumbar spondylosis with facet arthropathy, Previously we have done RFA of the medial branch lumbar area, patient reports good benefit from this. Her current pain is located in the left lower back, radiating to left lower extremity. She is maintained with a series of pain medications and interventions. She reports that the medications are helping control her pain and improve activities of daily living. She continues to walk for exercise. She does report mild side effects from opiate medication including constipation. The patient currently on Percocet 7.5/325 by mouth every 12 hours when necessary , and Neurontin 300 mg every morning and 2 tablets by mouth daily at bedtime ( she is using Xeralto because of PE ) and baclofen 5 mg twice a day. Patient here today for follow-up visit and medication refill. She is cleaning of some numbness in the left lower extremities Review of systems is negative for chest pain, shortness of breath, new onset weakness, abdominal pain, malaise, fever, night sweats, chills, homicidal or suicidal ideation, or bowel or bladder incontinence. He is complaining of some swelling in the feet Objective - Vital Signs Vital signs: Vital Signs Temp 98.6 F 10/17/20 09:34 Pulse 75 10/17/20 09:34 Resp 20 10/17/20 09:34 BP 129/67 10/17/20 09:34 Pulse Ox 96 10/17/20 09:34 Intake & Output 10/16/20 10/17/20 10/17/20 18:59 06:59 18:59 Weight 104.326 kg - Exam -Constitutiona : Cooperative , not in acute distress . -HEENT : nech ; supple , no Lymphadenopathy , normal thyroid size . eyes : no ptosis , no icterus, no photophobia . Extremity= lower extremity no edema identified in both feet -Musculoskeletal Lumber spine moter stegnth lower extremities ,thigh and legs 4/5 Right side , 4/5 Left side deep tendon reflexes : normal Knee Jerk , normal ankle Jerk positive lumber facet Loading Test Range of motion of the lumbar spine Flexion 30 degrees, extension 10 degrees strait leg raising test , positive at 30 degree Fabere test positive RT and positive LT Assessment and Plan Plan: chronic low back pain secondary to lumbar degenerative disc disease , lumbar spondylosis with lumbar facet arthropathy . Lumbar radiculopathy left L3 4 dermatomal distribution Patient continued to have severe low back pain after lumbar epidural steroid injections done recently, including most of the symptoms coming from the facetogenic component She complained of frequent episodes of muscle spasm in the low back and lower extremity chronic and current use of high-risk medication (opioids) Patient denies any side effects of the current pain medication and the current treatment/medication helping the patient to do activity of daily living , Diagnoses, prognosis, treatment options, including but not limited to physical therapy, medication management, interventional therapies, and surgery, were discussed with the patient All the questions answered The narcotic consent was signed and patient agreed and understood the side effects and complications of opioid treatment. Patient signed the narcotic agreement, and was orally counseled, not to overuse, not to abuse, not to Divert , not tp sell pain medication, and to take it as prescribed only, Patient was counseled not to drive or operate heavy equipment while using narcotic medication, and advised not to use alcohol or any Illicit drugs while using the narcotis, understanding that lack of compliance with any of the above instructions, will likely to cause discharge from, the pain service, not to renew his narcotic prescriptions MAPS Reviwed and it was apropriate . Medication managements= patient will be given prescription refills for Percocet 7.5/325 every 12 hours dispense 45 with one refill, continue Neurontin 300 mg 3 times a day (1 tablet in the morning and 2 tablets daily at bedtime ) Baclofen 5 mg twice a day with one refill She will follow up in the pain clinic in 2 months Time with Patient: Less than 30 PQRS Measure Charge Sheet Measure #130: Documentation of Current Meds in Medical Chart: Patient's medications documented in chart Measure #226: Tobacco Use: Screen & Cessation Intervention: Pt not a tobacco user Measure #111: Pneumonia Vaccination: Pneumococcal vaccine administered or previously received Measure #47: Advance Care Plan: Advance care planning discussed & documented, pt chose/unable to give Measure #412: Opioid Treatment Agreement: Documented signed opioid trtmnt agreemnt min once during opioid trtmnt Measure #408: Opioid Therapy Follow-up Evaluation: Patient had f/u eval minimum every 3 months during opioid therapy Measure #317: Preventitive Care & Scrn High Bld Press & F/U: Normal blood pressure, f/u not required Measure #128: Body Mass Index (BMI) Screening & Follow-up: BMI documented ABOVE normal parameters - f/u documented Measure #131: Pain Assessment & Follow-up: Pain positive & plan documented, Follow-up scheduled Measure #431: Unhealthy Alcohol Use Preventative Care & Scrn: Patient not identified as an unhealthy alcohol user PQRS Narrative: Time with Patient: Less than 30
== END | disposition home or self-care (01) ==
LOC: PNWHC3 09:28
PROVIDERS: ATTEND Specialist
DX: G89.29 Other chronic pain (principal); M51.16 Intervertebral disc disorders with radiculopathy, lumbar region; M47.26 Other spondylosis with radiculopathy, lumbar region; M62.838 Other muscle spasm; Z79.891 Long term (current) use of opiate analgesic; Z79.899 Other long term (current) drug therapy
CPT/HCPCS: 99211

== ENCOUNTER → 2020-11-23 | Outpatient (CLI) | payer MEDICARE, BC ==
--- NOTE | 2020-11-24 12:17 | MM ---
Reason for exam: screening (asymptomatic). Last mammogram was performed 1 year and 4 months ago. History: Patient is postmenopausal. Family history of breast cancer in paternal aunt. Physical Findings: A clinical breast exam by your physician is recommended on an annual basis and results should be correlated with mammographic findings. MG 3D Screening Mammo W/Cad Bilateral CC and MLO view(s) were taken. Prior study comparison: July 30, 2019, bilateral MG 3d screening mammo w/cad. June 26, 2018, bilateral MG 3d screening mammo w/cad. There are scattered fibroglandular densities. There is no discrete abnormality. No significant changes when compared with prior studies. ASSESSMENT: Negative, BI-RAD 1 RECOMMENDATION: Routine screening mammogram of both breasts in 1 year.
== END | disposition home or self-care (01) ==
LOC: RADMAMWWP 10:54
PROVIDERS: ATTEND Family Medicine
DX: Z12.31 Encounter for screening mammogram for malignant neoplasm of breast (principal)
CPT/HCPCS: 77063; 77067

== ENCOUNTER → 2020-11-23 | Outpatient (CLI) | payer MEDICARE, BC ==
--- NOTE | 2020-11-23 11:49 | US ---
EXAMINATION TYPE: US venous doppler duplex LE LT DATE OF EXAM: 11/23/2020 11:39 AM COMPARISON: US 2018 CLINICAL HISTORY: R60.0 Localized Edema. Left leg swelling x 2 months, history of PE, patient on bloo d thinners SIDE PERFORMED: Left TECHNIQUE: The lower extremity deep venous system is examined utilizing real time linear array sonog chanel with graded compression, doppler sonography and color-flow sonography. VESSELS IMAGED: Common Femoral Vein Deep Femoral Vein Greater Saphenous Vein * Femoral Vein Popliteal Vein Small Saphenous Vein * Proximal Calf Veins (* superficial vessels) Left Leg: Appears negative for DVT IMPRESSION: No evidence of DVT at this time.
== END | disposition home or self-care (01) ==
LOC: RADUSWWP 11:01
PROVIDERS: ATTEND Family Medicine
DX: R60.0 Localized edema (principal)

== ENCOUNTER → 2020-12-12 | Outpatient (CLI) | payer MEDICARE, BC ==
[2020-12-12 11:01] VITALS: BP 123/80; PULSE 84; RESP 16; TEMP 98.4
--- NOTE | 2020-12-12 11:23 | P.PN ---
Subjective Progress Note Date: 12/12/20 This is a follow-up visit for this 70 years old female with a history of severe and chronic low back pain secondary to lumbar degenerative disc disease, lumbar spondylosis with facet arthropathy, Previously we have done RFA of the medial branch lumbar area, patient reports good benefit from this. Her current pain is located in the left lower back, radiating to left lower extremity. She is maintained with a series of pain medications and interventions. She reports that the medications are helping control her pain and improve activities of daily living. She continues to walk for exercise. She does report mild side effects from opiate medication including constipation. The patient currently on Percocet 7.5/325 by mouth every 12 hours when necessary , and Neurontin 300 mg every morning and 2 tablets by mouth daily at bedtime ( she is using Xeralto because of PE ) and baclofen 5 mg twice a day. Patient here today for follow-up visit and medication refill. She is complaining of increased pain, and she reported that , she is getting minimal relief from Percocet Review of systems is negative for chest pain, shortness of breath, new onset weakness, abdominal pain, malaise, fever, night sweats, chills, homicidal or suicidal ideation, or bowel or bladder incontinence. He is complaining of some swelling in the feet Objective - Vital Signs Vital signs: Vital Signs Temp 98.4 F 12/12/20 10:59 Pulse 84 12/12/20 10:59 Resp 16 12/12/20 10:59 BP 123/80 12/12/20 10:59 Pulse Ox 93 L 12/12/20 10:59 - Exam -Constitutiona : Cooperative , not in acute distress . -HEENT : nech ; supple , no Lymphadenopathy , normal thyroid size . eyes : no ptosis , no icterus, no photophobia . Extremity= lower extremity no edema identified in both feet -Musculoskeletal Lumber spine moter stegnth lower extremities ,thigh and legs 4/5 Right side , 4/5 Left side deep tendon reflexes : normal Knee Jerk , normal ankle Jerk positive lumber facet Loading Test Range of motion of the lumbar spine Flexion 30 degrees, extension 10 degrees strait leg raising test , positive at 30 degree Fabere test positive RT and positive LT Assessment and Plan Plan: chronic low back pain secondary to lumbar degenerative disc disease , lumbar spondylosis with lumbar facet arthropathy . Lumbar radiculopathy left L3 4 de rmatomal distribution Patient continued to have severe low back pain after lumbar epidural steroid injections done recently, including most of the symptoms coming from the facetogenic component She complained of frequent episodes of muscle spasm in the low back and lower extremity chronic and current use of high-risk medication (opioids) Patient denies any side effects of the current pain medication and the current treatment/medication helping the patient to do activity of daily living , Diagnoses, prognosis, treatment options, including but not limited to physical therapy, medication management, interventional therapies, and surgery, were discussed with the patient All the questions answered The narcotic consent was signed and patient agreed and understood the side effects and complications of opioid treatment. Patient signed the narcotic agreement, and was orally counseled, not to overuse, not to abuse, not to Divert , not tp sell pain medication, and to take it as prescribed only, Patient was counseled not to drive or operate heavy equipment while using narcotic medication, and advised not to use alcohol or any Illicit drugs while using the narcotis, understanding that lack of compliance with any of the above instructions, will likely to cause discharge from, the pain service, not to renew his narcotic prescriptions [employer]S Reviwed and it was apropriate . Medication managements= patient will be given prescription refills for norco 7.5/325 every 12 hours dispense 60 , continue Neurontin 300 mg 3 times a day (1 tablet in the morning and 2 tablets daily at bedtime ) Baclofen 5 mg twice a day She will follow up in the pain clinic in 1 months Time with Patient: Less than 30 PQRS Measure Charge Sheet Measure #130: Documentation of Current Meds in Medical Chart: Patient's medications documented in chart Measure #226: Tobacco Use: Screen & Cessation Intervention: Pt not a tobacco user Measure #111: Pneumonia Vaccination: Pneumococcal vaccine administered or previously received Measure #47: Advance Care Plan: Advance care planning discussed & documented, pt chose/unable to give Measure #412: Opioid Treatment Agreement: Documented signed opioid trtmnt agreemnt min once during opioid trtmnt Measure #408: Opioid Therapy Follow-up Evaluation: Patient had f/u eval minimum every 3 months during opioid therapy Measure #317: Preventitive Care & Scrn High Bld Press & F/U: Normal blood p ressure, f/u not required Measure #128: Body Mass Index (BMI) Screening & Follow-up: BMI documented ABOVE normal parameters - f/u documented Measure #131: Pain Assessment & Follow-up: Pain positive & plan documented, Follow-up scheduled Measure #431: Unhealthy Alcohol Use Preventative Care & Scrn: Patient not identified as an unhealthy alcohol user PQRS Narrative: Time with Patient: Less than 30 Time with Patient: Less than 30
== END | disposition home or self-care (01) ==
LOC: PNWHC3 10:23
PROVIDERS: ATTEND Specialist
DX: M51.16 Intervertebral disc disorders with radiculopathy, lumbar region (principal); M47.26 Other spondylosis with radiculopathy, lumbar region; G89.29 Other chronic pain; Z79.899 Other long term (current) drug therapy
CPT/HCPCS: 80307; G0482; G0463; 99212

== ENCOUNTER → 2021-01-11 | Outpatient (CLI) | payer MEDICARE, BC ==
[2021-01-11 14:10] VITALS: BP 136/66; PULSE 91; RESP 20; TEMP 98.4
--- NOTE | 2021-01-11 14:35 | P.PN ---
Subjective Progress Note Date: 01/11/21 This is a follow-up visit for this 70 years old female with a history of severe and chronic low back pain secondary to lumbar degenerative disc disease, lumbar spondylosis with facet arthropathy, Previously we have done RFA of the medial branch lumbar area, patient reports good benefit from this. Her current pain is located in the left lower back, radiating to left lower extremity. She is maintained with a series of pain medications and interventions. She reports that the medications are helping control her pain and improve activities of daily living. She continues to walk for exercise. She does report mild side effects from opiate medication including constipation. The patient currently on norco 7.5/325 by mouth every 12 hours when necessary , and Neurontin 300 mg every morning and 2 tablets by mouth daily at bedtime ( she is using Xeralto because of PE ) and baclofen 5 mg twice a day. Patient here today for follow-up visit and medication refill. She is complaining of increased pain, and she reported that , she is getting minimal relief from the [place] 7.5/325 She's having difficulty sleeping at night secondary to the intensity of the pain, and she reports that since we changed the medication from Percocet to [place] her pain increased significantly Review of systems is negative for chest pain, shortness of breath, new onset weakness, abdominal pain, malaise, fever, night sweats, chills, homicidal or suicidal ideation, or bowel or bladder incontinence. He is complaining of some swelling in the feet - Exam -Constitutiona : Cooperative , not in acute distress . -HEENT : nech ; supple , no Lymphadenopathy , normal thyroid size . eyes : no ptosis , no icterus, no photophobia . Extremity= lower extremity no edema identified in both feet -Musculoskeletal Lumber spine moter stegnth lower extremities ,thigh and legs 4/5 Right side , 4/5 Left side deep tendon reflexes : normal Knee Jerk , normal ankle Jerk positive lumber facet Loading Test Range of motion of the lumbar spine Flexion 30 degrees, extension 10 degrees strait leg raising test , positive at 30 degree Fabere test positive RT and positive LT Assessment and Plan= chronic low back pain secondary to lumbar degenerative disc disease , lumbar spondylosis with lumbar facet arthropathy . Lumbar radiculopathy left L3 4 dermatomal distribution Patient continued to have severe low back pain after lumbar epidural steroid injections done recently, including most of the symptoms coming from the facetogenic component She complained of frequent episodes of muscle spasm in the low back and lower extremity chronic and current use of high-risk medication (opioids) Patient denies any side effects of the current pain medication and the current treatment/medication helping the patient to do activity of daily living , Diagnoses, prognosis, treatment options, including but not limited to physical therapy, medication management, interventional therapies, and surgery, were discussed with the patient All the questions answered The narcotic consent was signed and patient agreed and understood the side effects and complications of opioid treatment. Patient signed the narcotic agreement, and was orally counseled, not to overuse, not to abuse, not to Divert , not tp sell pain medication, and to take it as prescribed only, Patient was counseled not to drive or operate heavy equipment while using narcotic medication, and advised not to use alcohol or any Illicit drugs while using the narcotis, understanding that lack of compliance with any of the above instructions, will likely to cause discharge from, the pain service, not to renew his narcotic prescriptions MAPS Reviwed and it was apropriate . UDS reviewed and it was appropriate Medication managements= discontinue norco 7.5/325 every 12 h , continue Neur ontin 300 mg 3 times a day (1 tablet in the morning and 2 tablets daily at bedtime ) Baclofen 5 mg twice a day Restart Percocet 7.5/325 every 8 hours when necessary for pain dispense 90 She will follow up in the pain clinic in 1 months Time with Patient: Less than 30 PQRS Measure Charge Sheet Measure #130: Documentation of Current Meds in Medical Chart: Patient's medications documented in chart Measure #226: Tobacco Use: Screen & Cessation Intervention: Pt not a tobacco user Measure #111: Pneumonia Vaccination: Pneumococcal vaccine administered or previously received Measure #47: Advance Care Plan: Advance care planning discussed & documented, pt chose/unable to give Measure #412: Opioid Treatment Agreement: Documented signed opioid trtmnt agreemnt min once during opioid trtmnt Measure #408: Opioid Therapy Follow-up Evaluation: Patient had f/u eval minimum every 3 months during opioid therapy Measure #317: Preventitive Care & Scrn High Bld Press & F/U: Normal blood pressure, f/u not required Measure #128: Body Mass Index (BMI) Screening & Follow-up: BMI documented ABOVE normal parameters - f/u documented Measure #131: Pain Assessment & Follow-up: Pain positive & plan documented, Follow-up scheduled Measure #431: Unhealthy Alcohol Use Preventative Care & Scrn: Patient not identified as an unhealthy alcohol user Objective - Vital Signs Vital signs: Vital Signs Temp 98.4 F 01/11/21 14:07 Pulse 91 01/11/21 14:07 Resp 20 01/11/21 14:07 BP 136/66 01/11/21 14:07 Pulse Ox 94 L 01/11/21 14:07
== END ==
LOC: PNWHC3 13:46
PROVIDERS: ATTEND Specialist
DX: M51.16 Intervertebral disc disorders with radiculopathy, lumbar region (principal); M47.26 Other spondylosis with radiculopathy, lumbar region; Z79.891 Long term (current) use of opiate analgesic; Z87.891 Personal history of nicotine dependence
CPT/HCPCS: 99211

== ENCOUNTER → 2021-02-08 | Outpatient (CLI) | payer MEDICARE, BC ==
[2021-02-08 14:04] VITALS: BP 134/88; PULSE 90; RESP 18; TEMP 98
--- NOTE | 2021-02-08 14:16 | P.PAINPG ---
Subjective Progress Note Date: 02/08/21 This is a follow-up visit for this 70 years old female with a history of severe and chronic low back pain secondary to lumbar degenerative disc disease, lumbar spondylosis with facet arthropathy, Previously we have done RFA of the medial branch lumbar area, patient reports good benefit from this. Her current pain is located in the left lower back, radiating to left lower extremity. She is maintained with a series of pain medications and interventions. She reports that the medications are helping control her pain and improve activities of daily living. She continues to walk for exercise. She does report mild side effects from opiate medication including constipation. The patient currently on norco 7.5/325 by mouth every 12 hours when necessary , and Neurontin 300 mg every morning and 2 tablets by mouth daily at bedtime ( she is using Xarelto because of PE ) and baclofen 5 mg twice a day. Patient here today for follow-up visit and medication refill. In our last visit we changed her [place] 7.5 to Percocet 7.5 as she was getting limited relief with [place]. The Percocet is helping some but not as much as she would want to. She is hoping for small dose increase to help her pain overall. Review of systems is negative for chest pain, shortness of breath, new onset weakness, abdominal pain, malaise, fever, night sweats, chills, homicidal or suicidal ideation, or bowel or bladder incontinence. - Exam -Constitutiona : Cooperative , not in acute distress . -HEENT : nech ; supple , no Lymphadenopathy , normal thyroid size . eyes : no ptosis , no icterus, no photophobia . Extremity= lower extremity no edema identified in both feet -Musculoskeletal Lumber spine moter stegnth lower extremities ,thigh and legs 4/5 Right side , 4/5 Left side deep tendon reflexes : normal Knee Jerk , normal ankle Jerk positive lumber facet Loading Test Range of motion of the lumbar spine Flexion 30 degrees, extension 10 degrees strait leg raising test , positive at 30 degree Fabere test positive RT and positive LT Assessment and Plan= chronic low back pain secondary to lumbar degenerative disc disease , lumbar spondylosis with lumbar facet arthropathy . Lumbar radiculopathy left L3 4 dermatomal distribution Patient continued to have severe low back pain after lumbar epidural steroid injections done recently, including most of the symptoms coming from the facetogenic component She complained of frequent episodes of muscle spasm in the low back and lower extremity chronic and current use of high-risk medication (opioids) Patient denies any side effects of the current pain medication and the current treatment/medication helping the patient to do activity of daily living , Diagnoses, prognosis, treatment options, including but not limited to physical therapy, medication management, interventional therapies, and surgery, were discussed with the patient All the questions answered The narcotic consent was signed and patient agreed and understood the side effects and complications of opioid treatment. Patient signed the narcotic agreement, and was orally counseled, not to overuse, not to abuse, not to Divert , not tp sell pain medication, and to take it as prescribed only, Patient was counseled not to drive or operate heavy equipment while using narcotic medication, and advised not to use alcohol or any Illicit drugs while using the narcotis, understanding that lack of compliance with any of the above instructions, will likely to cause discharge from, the pain service, not to renew his narcotic prescriptions MAPS Reviwed and it was apropriate . UDS reviewed and it was appropriate Medication managements= continue Neurontin 300 mg 3 times a day (1 tablet in the morning and 2 tablets daily at bedtime ) Baclofen 5 mg twice a day Rxyxycko10/325 every 8 hours when necessary for pain dispense 90. Change her Percocet to 10 mg rather than 7.5. I educated the patient that beyond this I would not increase the dose given her significant asthma history and that increases in general are unlikely to help her pain.. She inquired about increasing her gabapentin and baclofen, I did comment that all these medications combined can lead to significant respiratory depression and I don't want to just one medication at a time. Patient and her were understanding. She will follow up in the pain clinic in 2 months I have spent 26 minutes on patient care today. The time was used to review the medical records including relevant urine studies and prescription history, review of the available imaging, evaluation and examination of the patient, coordination of care with medical staff and if applicable referring physicians, as well as creation of the medical record. PQRS Measure Charge Sheet Measure #130: Documentation of Current Meds in Medical Chart: Patient's medications documented in chart Measure #226: Tobacco Use: Screen & Cessation Intervention: Pt not a tobacco user Measure #111: Pneumonia Vaccination: Pneumococcal vaccine administered or previously received Measure #47: Advance Care Plan: Advance care planning discussed & documented, pt chose/unable to give Measure #412: Opioid Treatment Agreement: Documented signed opioid trtmnt agreemnt min once during opioid trtmnt Measure #408: Opioid Therapy Follow-up Evaluation: Patient had f/u eval minimum every 3 months during opioid therapy Measure #317: Preventitive Care & Scrn High Bld Press & F/U: Normal blood pressure, f/u not required Measure #128: Body Mass Index (BMI) Screening & Follow-up: BMI documented ABOVE normal parameters - f/u documented Measure #131: Pain Assessment & Follow-up: Pain positive & plan documented, Follow-up scheduled Measure #431: Unhealthy Alcohol Use Preventative Care & Scrn: Patient not ident ified as an unhealthy alcohol user Objective - Vital Signs Vital signs: Intake & Output 02/06/21 02/07/21 02/07/21 18:59 06:59 18:59 Weight 104.326 kg PQRS Measure Charge Sheet PQRS Narrative: Smoking Status Former smoker Narcotic Agreement Date Signed 05/10/20 Pain Intensity [Lower Back] 6 Hx Alcohol Use (MH) No Home Medications: Ambulatory Orders Albuterol Inhaler (Mhu) [Ventolin Hfa Inhaler (Mhu)] 2 puff INHALATION Q6HR PRN 11/05/14 Ubidecarenone [Co Q-10] 200 mg PO DAILY 02/24/17 Rivaroxaban [Xarelto] 10 mg PO QAM 08/27/17 Ipratropium-Albuterol Nebulize [Duoneb 0.5 mg-3 mg/3 ml Soln] 3 ml INHALATION TID PRN 05/28/18 Ascorbic Acid [Vitamin C] 500 mg PO DAILY #0 06/27/18 Benzonatate [Tessalon Perles] 100 mg PO TID PRN 06/27/18 Cholecalciferol [Vitamin D3 (25 Mcg = 1000 Iu)] 1,000 unit PO DAILY 06/27/18 Levothyroxine Sodium [Synthroid] 112 mcg PO QAM 06/27/18 Magnesium Gluconate [Magonate] 500 mg PO DAILY 06/27/18 Rosuvastatin Calcium [Crestor] 5 mg PO HS 06/27/18 Losartan Potassium 100 mg PO QAM 10/31/18 Xolair(Dose Unkown) 1 injection INJ QMONTH 04/01/19 Docusate [Colace] 100 mg PO DAILY PRN 06/24/19 Vitamin C/Biotin [Hair, Skin and Nails] 2 tab PO DAILY 07/02/19 Denosumab [Prolia] 60 mg SQ Q180D 07/13/19 Diltiazem Cd [Cardizem Cd] 240 mg PO 1600 07/13/19 Salmeterol Xinafoate [Serevent Diskus] 1 puff INHALATION BID 07/13/19 Esomeprazole Magnesium [NexIUM] 20 mg PO QAM 12/17/19 Multivitamins, Thera [Multivitamin (formulary)] 1 tab PO DAILY 02/26/20 Sulfamethox-Tmp 800-160Mg [Bactrim DS 800-160 mg] 1 tab PO MOWEFR 02/26/20 Hydrocortisone [Cortef] 10 mg PO PC-SUPPER 04/22/20 Hydrocortisone [Cortef] 15 mg PO QAM 04/22/20 Joni/D3/Mag11/Zinc/Medical Technologist Chemistry/Jaylon/Bor [Caltrate 600+D Plus Tablet] 1 each PO DAILY 07/28/20 Fluticasone Propionate 220 Mcg [Flovent 220 Mcg Inhaler (Mhu)] 1 puff INHALATION RT-BID 07/28/20 Melatonin 10 mg PO HS 07/28/20 Levocetirizine Dihydrochloride [Xyzal] 5 mg PO DAILY 01/05/21 Baclofen 5 mg PO BID 30 Days #60 tab 02/08/21 Gabapentin 300 mg PO TID 30 Days #90 cap 02/08/21 oxyCODONE HCL/ACETAMINOPHEN [Percocet 10-325 mg] 1 tab PO Q8HR PRN 30 Days #90 tab 02/08/21 oxyCODONE HCL/ACETAMINOPHEN [Percocet 10-325 mg] 1 tab PO Q8HR PRN 30 Days #90 tab 02/08/21 Controlled Substance Measures - Controlled Substance Measures Is patient prescribed a controlled substance at discharge?: Yes When asked, does pt state using other controlled substances?: No If prescribed controlled substance>3 days was MAPS reviewed?: Yes If Rx opioid, was Start Talking consent form obtained?: Yes Was information provided regarding opioid addiction?: Yes
== END ==
LOC: PNWHC3 13:15
PROVIDERS: ATTEND Anesthesiology
DX: M51.16 Intervertebral disc disorders with radiculopathy, lumbar region (principal); M47.816 Spondylosis without myelopathy or radiculopathy, lumbar region; G89.29 Other chronic pain; Z79.891 Long term (current) use of opiate analgesic; Z87.891 Personal history of nicotine dependence
CPT/HCPCS: 99211

== ENCOUNTER 2021-03-05 03:32 | Emergency (ER) | payer MEDICARE, BC ==
[2021-03-05] MEDS ORDERED: ALBUTEROL NEBULIZED 2.5 MG/3 ML INHALATION STA (03:36)
[2021-03-05] MEDS ORDERED: SODIUM CHLORIDE 0.9% 1,000 ML IV STA (03:36)
[2021-03-05] MEDS ORDERED: IPRATROPIUM 0.5 MG/2.5 ML NEBU INHALATION STA (03:36)
[2021-03-05 03:37] VITALS: TEMP 97.9
--- NOTE | 2021-03-05 03:49 | ED ---
SOB HPI - General Chief Complaint: Shortness of Breath Stated Complaint: CECILIA Time Seen by Provider: 03/05/21 03:34 Source: patient Mode of arrival: wheelchair Limitations: no limitations - Related Data Home Medications Medication Instructions Recorded Confirmed Albuterol Inhaler (Mhu) [Ventolin 2 puff INHALATION Q6HR PRN 11/05/14 02/06/21 Hfa Inhaler (Mhu)] Ubidecarenone [Co Q-10] 200 mg PO DAILY 02/24/17 02/06/21 Rivaroxaban [Xarelto] 10 mg PO QAM 08/27/17 02/06/21 Ipratropium-Albuterol Nebulize 3 ml INHALATION TID PRN 05/28/18 02/06/21 [Duoneb 0.5 mg-3 mg/3 ml Soln] Ascorbic Acid [Vitamin C] 500 mg PO DAILY #0 06/27/18 02/06/21 Benzonatate [Tessalon Perles] 100 mg PO TID PRN 06/27/18 02/06/21 Cholecalciferol [Vitamin D3 (25 1,000 unit PO DAILY 06/27/18 02/06/21 Mcg = 1000 Iu)] Levothyroxine Sodium [Synthroid] 112 mcg PO QAM 06/27/18 02/06/21 Magnesium Gluconate [Magonate] 500 mg PO DAILY 06/27/18 02/06/21 Rosuvastatin Calcium [Crestor] 5 mg PO HS 06/27/18 02/06/21 Losartan Potassium 100 mg PO QAM 10/31/18 02/06/21 Xolair(Dose Unkown) 1 injection INJ QMONTH 04/01/19 02/06/21 Docusate [Colace] 100 mg PO DAILY PRN 06/24/19 02/06/21 Vitamin C/Biotin [Hair, Skin and 2 tab PO DAILY 07/02/19 02/06/21 Nails] Denosumab [Prolia] 60 mg SQ Q180D 07/13/19 02/06/21 Diltiazem Cd [Cardizem Cd] 240 mg PO 1600 07/13/19 02/06/21 Salmeterol Xinafoate [Serevent 1 puff INHALATION BID 07/13/19 02/06/21 Diskus] Esomeprazole Magnesium [NexIUM] 20 mg PO QAM 12/17/19 02/06/21 Multivitamins, Thera [Multivitamin 1 tab PO DAILY 02/26/20 02/06/21 (formulary)] Sulfamethox-Tmp 800-160Mg [Bactrim 1 tab PO MOWEFR 02/26/20 02/06/21 DS 800-160 mg] Hydrocortisone [Cortef] 10 mg PO PC-SUPPER 04/22/20 02/06/21 Hydrocortisone [Cortef] 15 mg PO QAM 04/22/20 02/06/21 Joni/D3/Mag11/Zinc/Welder Fabricator/Jaylon/Bor 1 each PO DAILY 07/28/20 02/06/21 [Caltrate 600+D Plus Tablet] Fluticasone Propionate 220 Mcg 1 puff INHALATION RT-BID 07/28/20 02/06/21 [Flovent 220 Mcg Inhaler (Mhu)] Melatonin 10 mg PO HS 07/28/20 02/06/21 Levocetirizine Dihydrochloride 5 mg PO DAILY 01/05/21 02/06/21 [Xyzal] Previous Rx's Medication Instructions Recorded Baclofen 5 mg PO BID 30 Days #60 tab 02/08/21 Gabapentin 300 mg PO TID 30 Days #90 cap 02/08/21 oxyCODONE HCL/ACETAMINOPHEN 1 tab PO Q8HR PRN 30 Days #90 tab 02/08/21 [Percocet 10-325 mg] oxyCODONE HCL/ACETAMINOPHEN 1 tab PO Q8HR PRN 30 Days #90 tab 02/08/21 [Percocet 10-325 mg] Azithromycin [Zithromax Z-pack (6 0 mg PO DIRECTED #1 pack 03/05/21 tabs)] predniSONE 50 mg PO DAILY #5 tab 03/05/21 Allergies Allergy/AdvReac Type Severity Reaction Status Date / Time cefuroxime axetil Allergy Dyspnea Verified 03/05/21 03:37 [From Ceftin] moxifloxacin HCl Allergy Dyspnea Verified 03/05/21 03:37 [From Avelox] Penicillins Allergy Dyspnea Verified 03/05/21 03:37 rofecoxib [From Vioxx] Allergy Dyspnea Verified 03/05/21 03:37 blackberry Allergy Rash/Hives Uncoded 03/05/21 03:37 Review of Systems ROS Statement: Those systems with pertinent positive or pertinent negative responses have been documented in the HPI. ROS Other: All systems not noted in ROS Statement are negative. 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 History of Any Multi-Drug Resistant Organisms: None Reported Past Surgical History: Section, Cholecystectomy, Heart Catheterization, Orthopedic Surgery, Tonsillectomy Additional Past Surgical History / Comment(s): RIGHT CARPAL TUNNEL RELEASE ON 04/22/20. R ankle plate/screws, L wrist carpal tunnel release, multiple bronchoscopies, bronchial thermoplasty x3, EGDs, colonoscopies/polypectomy, deviated septal surgery, [facility] pain clinic procedures, PICC/later removed, bilateral cataract removals/lens implants. Past Anesthesia/Blood Transfusion Reactions: Family History of Problems w/ Anesthesia, Postoperative Nausea & Vomiting (PONV) Additional Past Anesthesia/Blood Transfusion Reaction / Comment(s): Pt has never received blood. Occ nausea. DAUGHTER PONV Past Psychological History: No Psychological Hx Reported Smoking Status: Former smoker Past Alcohol Use History: None Reported Past Drug Use History: None Reported - Past Family History Father Family Medical History: Cancer Additional Family Medical History / Comment(s): Colon cancer. Mother Family Medical History: Congestive Heart Failure (CHF), COPD Additional Family Medical History / Comment(s): Mother lived to be 80 yrs old. Daughter(s) Family Medical History: Deep Vein Thrombosis (DVT) General Exam Limitations: no limitations Course Vital Signs 03/05/21 03/05/21 03/05/21 03:33 04:07 04:19 Temperature 97.9 F Pulse Rate 86 81 84 Respiratory 26 H Rate Blood Pressure 142/82 O2 Sat by Pulse 96 Oximetry Medical Decision Making - Lab Data Result diagrams: 03/05/21 04:07 03/05/21 04:07 Lab Results 03/05/21 03/05/21 03/05/21 Range/Units 04:07 04:07 04:07 WBC 8.0 (3.8-10.6) k/uL RBC 4.40 (3.80-5.40) m/uL Hgb 13.1 (11.4-16.0) gm/dL Hct 41.2 (34.0-46.0) % MCV 93.7 (80.0-100.0) fL MCH 29.7 (25.0-35.0) pg MCHC 31.7 (31.0-37.0) g/dL RDW 13.8 (11.5-15.5) % Plt Count 236 (150-450) k/uL MPV 8.3 Neutrophils % 56 % Lymphocytes % 28 % Monocytes % 8 % Eosinophils % 4 % Basophils % 1 % Neutrophils # 4.5 (1.3-7.7) k/uL Lymphocytes # 2.3 (1.0-4.8) k/uL Monocytes # 0.6 (0-1.0) k/uL Eosinophils # 0.3 (0-0.7) k/uL Basophils # 0.1 (0-0.2) k/uL PT 10.6 (9.0-12.0) sec INR 1.0 (<1.2) APTT 24.1 (22.0-30.0) sec Sodium 137 (137-145) mmol/L Potassium 5.2 H (3.5-5.1) mmol/L Chloride 106 (98-107) mmol/L Carbon Dioxide 24 (22-30) mmol/L Anion Gap 7 mmol/L BUN 24 H (7-17) mg/dL Creatinine 1.09 H (0.52-1.04) mg/dL Est GFR (CKD-EPI)AfAm 60 (>60 ml/min/1.73 sqM) Est GFR (CKD-EPI)NonAf 52 (>60 ml/min/1.73 sqM) Glucose 96 (74-99) mg/dL Plasma Lactic Acid Toby (0.7-2.0) mmol/L Calcium 9.5 (8.4-10.2) mg/dL Magnesium 2.4 H (1.6-2.3) mg/dL Total Bilirubin 0.6 (0.2-1.3) mg/dL AST 43 H (14-36) U/L ALT 32 (4-34) U/L Alkaline Phosphatase 70 (38-126) U/L Creatine Kinase 160 H (30-135) U/L Troponin I (0.000-0.034) ng/mL NT-Pro-B Natriuret Pep pg/mL Total Protein 7.3 (6.3-8.2) g/dL Albumin 4.6 (3.5-5.0) g/dL 03/05/21 03/05/21 03/05/21 Range/Units 04:07 04:07 04:07 WBC (3.8-10.6) k/uL RBC (3.80-5.40) m/uL Hgb (11.4-16.0) gm/dL Hct (34.0-46.0) % MCV (80.0-100.0) fL MCH (25.0-35.0) pg MCHC (31.0-37.0) g/dL RDW (11.5-15.5) % Plt Count (150-450) k/uL MPV Neutrophils % % Lymphocytes % % Monocytes % % Eosinophils % % Basophils % % Neutrophils # (1.3-7.7) k/uL Lymphocytes # (1.0-4.8) k/uL Monocytes # (0-1.0) k/uL Eosinophils # (0-0.7) k/uL Basophils # (0-0.2) k/uL PT (9.0-12.0) sec INR (<1.2) APTT (22.0-30.0) sec Sodium (137-145) mmol/L Potassium (3.5-5.1) mmol/L Chloride (98-107) mmol/L Carbon Dioxide (22-30) mmol/L Anion Gap mmol/L BUN (7-17) mg/dL Creatinine (0.52-1.04) mg/dL Est GFR (CKD-EPI)AfAm (>60 ml/min/1.73 sqM) Est GFR (CKD-EPI)NonAf (>60 ml/min/1.73 sqM) Glucose (74-99) mg/dL Plasma Lactic Acid Toby 2.2 H* (0.7-2.0) mmol/L Calcium (8.4-10.2) mg/dL Magnesium (1.6-2.3) mg/dL Total Bilirubin (0.2-1.3) mg/dL AST (14-36) U/L ALT (4-34) U/L Alkaline Phosphatase (38-126) U/L Creatine Kinase (30-135) U/L Troponin I <0.012 (0.000-0.034) ng/mL NT-Pro-B Natriuret Pep 161 pg/mL Total Protein (6.3-8.2) g/dL Albumin (3.5-5.0) g/dL - EKG Data -: EKG Interpreted by Me (EKG is sinus 83 KS 136 QRS 80 QTc 458) Disposition Clinical Impression: Dyspnea, Acute exacerbation of chronic obstructive airways disease Disposition: HOME SELF-CARE Condition: Fair Instructions (If sedation given, give patient instructions): Bronchospasm (ED), Chronic Bronchitis (ED), Acute Bronchitis (ED) Prescriptions: predniSONE 50 mg PO DAILY #5 tab Azithromycin [Zithromax Z-pack (6 tabs)] 0 mg PO DIRECTED #1 pack Is patient prescribed a controlled substance at d/c from ED?: No Referrals: Laurent Gramajo DO [Primary Care Provider] - 1-2 days
[2021-03-05 04:21] LABS: Basophils # (A) 0.1 k/uL (0-0.2); Basophils % (A) 1 %; Eosinophils # (A) 0.3 k/uL (0-0.7); Eosinophils % (A) 4 %; HCT 41.2 % (34.0-46.0); HGB 13.1 gm/dL (11.4-16.0); Lymphocytes # (A) 2.3 k/uL (1.0-4.8); Lymphocytes % (A) 28 %; MCH 29.7 pg (25.0-35.0); MCHC 31.7 g/dL (31.0-37.0); MCV 93.7 fL (80.0-100.0); Mean Platelet Volume 8.3; Monocytes # (A) 0.6 k/uL (0-1.0); Monocytes % (A) 8 %; Neutrophils # (A) 4.5 k/uL (1.3-7.7); Neutrophils % (A) 56 %; Platelet Count 236 k/uL (150-450); RDW 13.8 % (11.5-15.5)
[2021-03-05 04:31] LABS: Partial Thromboplastin Time 24.1 sec (22.0-30.0); Prothrombin Time 10.6 sec (9.0-12.0)
[2021-03-05 04:37] LABS: Albumin 4.6 g/dL (3.5-5.0); Calcium 9.5 mg/dL (8.4-10.2); Magnesium 2.4 mg/dL (1.6-2.3); Total Bilirubin 0.6 mg/dL (0.2-1.3); Total Protein 7.3 g/dL (6.3-8.2)
[2021-03-05 04:58] LABS: Potassium 5.2 mmol/L (3.5-5.1)
--- NOTE | 2021-03-05 05:00 | XR ---
EXAM: XR Chest, 2 Views CLINICAL HISTORY: : difficulty breathing TECHNIQUE: Frontal and lateral views of the chest. COMPARISON: October 24, 2017 FINDINGS: Lungs: Unremarkable. No infiltration, atelectasis or mass density. Pleural space: Unremarkable. No pneumothorax. No pleural fluid. Heart: Heart appears mildly enlarged. Mediastinum: Unremarkable. Bones/joints: Unremarkable. No acute abnormalities. IMPRESSION: No evidence of acute or active process in the chest..
[2021-03-05] MEDS ORDERED: methylPREDNISolone SOD SUCCI 125 MG/2 ML VIAL IV STA (05:04)
[2021-03-05] MEDS ORDERED: AZITHROMYCIN 500 MG in SODIUM CHLORIDE 0.9% 250 ML IVPB ONE (05:15)
[2021-03-05 05:56] VITALS: RESP 16
[2021-03-05 05:57] VITALS: PULSE 86
[2021-03-05] MEDS ORDERED: ONDANSETRON 4 MG/2 ML VIAL IVP STA (06:33)
[2021-03-05 07:14] VITALS: BP 140/73
== END 2021-03-05 06:58 | disposition home or self-care (01) ==
LOC: EC 03:32
DX: J44.1 Chronic obstructive pulmonary disease with (acute) exacerbation (principal); M79.7 Fibromyalgia; I10 Essential (primary) hypertension; M19.90 Unspecified osteoarthritis, unspecified site; M81.0 Age-related osteoporosis without current pathological fracture; M51.36 Other intervertebral disc degeneration, lumbar region; Z87.891 Personal history of nicotine dependence
CPT/HCPCS: 36415; 94640; 93005; 83880; 80053; 82550; 83605; 83735; 84484; 85025; 85610; 85730; 71046; 99285; 96365; 96375 ×2; 96361; J2930; J2405; J0456

== ENCOUNTER → 2021-04-05 | Outpatient (CLI) | payer MEDICARE, BC ==
[2021-04-05 13:05] VITALS: BP 137/83; PULSE 89; RESP 18; TEMP 98.2
--- NOTE | 2021-04-05 13:29 | P.PN ---
Subjective Progress Note Date: 04/05/21 This is a follow-up visit for this 70 years old female with a history of severe and chronic low back pain secondary to lumbar degenerative disc disease, lumbar spondylosis with facet arthropathy, patient reports good benefit from this. Currently she reports increase of her low back pain with radiation to the buttock bilaterally She reports that the medications are helping control her pain and improve activities of daily living. She continues to walk for exercise. She does report mild side effects from opiate medication including constipation. The patient currently on Percocet 10/325 by mouth every 8 hours when necessary , and Neurontin 300 mg every 8 hours ( she is using Xeralto because of PE ) and baclofen 5 mg twice a day.Patient here today for follow-up visit and medication refill. She is complaining of increased pain, and she reported that , she is getting minimal relief from the pain medication She's having difficulty sleeping at night secondary to the intensity of the pain, Review of systems is negative for chest pain, shortness of breath, new onset weakness, abdominal pain, malaise, fever, night sweats, chills Physical Examinations : -Constitutiona : Cooperative , not in acute distress . -HEENT : nech : supple , no Lymphadenopathy , normal thyroid size . : eyes : no ptosis , no icterus, no photophobia . - neurologic : Cranial nerve II to XII intact , no focal neurological deffecit . -psychatric : alert , oriented X 3 , appropriate affect , intact judgment and insight . -Lymphatic : no Lymphadenopathy . - musculoskeltal : Lumber spine moter stegnth lower extremities ,thigh and legs 5/5 Right side , 5/5 Left side deep tendon reflexes : normal Knee Jerk , normal ankle Jerk lumber facet Loading Test =positive Right , positive Left Range of motion of the lumbar spine Flexion 30 degrees, extension 10 degrees strait leg raising test = positive at 30 degree Fabere test= positive Right , and positive LT . Sever tenderness over the Sacroiliac joint on the Right , and Left sides Gaenslen test= positive right ,and positive left . Seated flexion test= positive right ,and positive Left . Distraction test= positive bilaterally Sacroiliac compression test= positive bilaterally Assessment and Plan= chronic low back pain secondary to lumbar degenerative disc disease , lumbar spondylosis with lumbar facet arthropathy . , Bilateral sacroiliitis Patient continued to have severe low back pain after lumbar epidural steroid injections done recently, including most of the symptoms coming from the facetogenic component She complained of frequent episodes of muscle spasm in the low back and lower extremity chronic and current use of high-risk medication (opioids) Patient denies any side effects of the current pain medication and the current treatment/medication helping the patient to do activity of daily living , Diagnoses, prognosis, treatment options, including but not limited to physical therapy, medication management, interventional therapies, and surgery, were discussed with the patient All the questions answered The narcotic consent was signed and patient agreed and understood the side effects and complications of opioid treatment. Patient signed the narcotic agreement, and was orally counseled, not to overuse, not to abuse, not to Divert , not tp sell pain medication, and to take it as prescribed only, Patient was counseled not to drive or operate heavy equipment while using narcotic medication, and advised not to use alcohol or any Illicit drugs while using the narcotis, understanding that lack of compliance with any of the above instructions, will likely to cause discharge from, the pain service, not to renew his narcotic prescriptions [facility] Reviwed and it was apropriate . UDS reviewed and it was appropriate Medication managements= refill Neurontin 300 mg 3 times a day dispense 90 with 1 refill Baclofen 5 mg twice a day dispense 60 with 1 refill Restart Percocet 10/325 every 8 hours when necessary for pain dispense 90 Interventions= patient could benefit from bilateral sacroiliac joint steroid injections under fluoroscopy guidance She will follow up in the pain clinic in 2 months for medication refill Time with Patient: Less than 30 PQRS Measure Charge Sheet Measure #130: Documentation of Current Meds in Medical Chart: Patient's medications documented in chart Measure #226: Tobacco Use: Screen & Cessation Intervention: Pt not a tobacco user Measure #111: Pneumonia Vaccination: Pneumococcal vaccine administered or previously received Measure #47: Advance Care Plan: Advance care planning discussed & documented, pt chose/unable to give Measure #412: Opioid Treatment Agreement: Documented signed opioid trtmnt agreemnt min once during opioid trtmnt Measure #408: Opioid Therapy Follow-up Evaluation: Patient had f/u eval minimum every 3 months during opioid therapy Measure #317: Preventitive Care & Scrn High Bld Press & F/U: Normal blood pressure, f/u not required Measure #128: Body Mass Index (BMI) Screening & Follow-up: BMI documented ABOVE normal parameters - f/u documented Measure #131: Pain Assessment & Follow-up: Pain positive & plan documented, Follow-up scheduled Measure #431: Unhealthy Alcohol Use Preventative Care & Scrn: Patient not identified as an unhealthy alcohol user Objective - Vital Signs Vital signs: Vital Signs Temp 98.2 F 04/05/21 13:03 Pulse 89 04/05/21 13:03 Resp 18 04/05/21 13:03 BP 137/83 04/05/21 13:03 Pulse Ox 94 L 04/05/21 13:03 Intake & Output 04/04/21 04/05/21 04/05/21 18:59 06:59 18:59 Weight 104.326 kg
== END ==
LOC: PNWHC3 12:49
PROVIDERS: ATTEND Specialist
DX: M51.36 Other intervertebral disc degeneration, lumbar region (principal); M47.816 Spondylosis without myelopathy or radiculopathy, lumbar region; G89.29 Other chronic pain; M46.1 Sacroiliitis, not elsewhere classified; Z79.891 Long term (current) use of opiate analgesic; Z88.0 Allergy status to penicillin; Z88.1 Allergy status to other antibiotic agents; Z91.018 Allergy to other foods; Z87.891 Personal history of nicotine dependence
CPT/HCPCS: 99211

== ENCOUNTER 2021-04-23 21:03 | Emergency (ER) | payer MEDICARE, BC ==
[2021-04-23 21:14] VITALS: TEMP 98.1
--- NOTE | 2021-04-23 21:28 | ED ---
Chest Pain HPI - General Chief Complaint: Chest Pain Stated Complaint: Chest PAin, SOB Time Seen by Provider: 04/23/21 21:25 Source: patient, RN notes reviewed, old records reviewed Mode of arrival: ambulatory Limitations: no limitations - History of Present Illness Initial Comments: This is a 70-year-old female presenting with her for evaluation regards to shortness of breath and chest pain. Patient does have recent cardiology evaluation set up as well as evaluation by her line analyst. Patient's history of some increased shortness of breath tonight as well. She denies any fever cough or congestion. Patient has no acute pain currently. States the shortness of breath is improved upon arrival to the ER with supplemental O2. But she does still have some symptoms. Patient has been having symptoms for 2-3 days with symptoms being persistent as well as fatigue MD Complaint: chest pain -: days(s) (3) Onset: during rest, during exertion Pain Location: substernal Pain Radiation: none Severity: mild Severity scale (1-10): 2 Quality: tightness, aching Consistency: intermittent, now resolved Improves With: nothing Worsens With: nothing Anginal Symptoms: dyspnea Other Symptoms: cough, palpitations Treatments Prior to Arrival: none - Related Data Home Medications Medication Instructions Recorded Confirmed Albuterol Inhaler (Mhu) [Ventolin 2 puff INHALATION Q6HR PRN 11/05/14 04/05/21 Hfa Inhaler (Mhu)] Ubidecarenone [Co Q-10] 200 mg PO DAILY 02/24/17 04/05/21 Rivaroxaban [Xarelto] 10 mg PO QAM 08/27/17 04/05/21 Ipratropium-Albuterol Nebulize 3 ml INHALATION TID PRN 05/28/18 04/05/21 [Duoneb 0.5 mg-3 mg/3 ml Soln] Ascorbic Acid [Vitamin C] 500 mg PO DAILY #0 06/27/18 04/05/21 Benzonatate [Tessalon Perles] 100 mg PO TID PRN 06/27/18 04/05/21 Cholecalciferol [Vitamin D3 (25 1,000 unit PO DAILY 06/27/18 04/05/21 Mcg = 1000 Iu)] Levothyroxine Sodium [Synthroid] 112 mcg PO QAM 06/27/18 04/05/21 Magnesium Gluconate [Magonate] 500 mg PO DAILY 06/27/18 04/05/21 Rosuvastatin Calcium [Crestor] 5 mg PO HS 06/27/18 04/05/21 Losartan Potassium 100 mg PO QAM 10/31/18 04/05/21 Xolair(Dose Unkown) 1 injection INJ QMONTH 04/01/19 04/05/21 Docusate [Colace] 100 mg PO DAILY PRN 06/24/19 04/05/21 Vitamin C/Biotin [Hair, Skin and 2 tab PO DAILY 07/02/19 04/05/21 Nails] Denosumab [Prolia] 60 mg SQ Q180D 07/13/19 04/05/21 Diltiazem Cd [Cardizem Cd] 240 mg PO 1600 07/13/19 04/05/21 Salmeterol Xinafoate [Serevent 1 puff INHALATION BID 07/13/19 04/05/21 Diskus] Esomeprazole Magnesium [NexIUM] 20 mg PO QAM 12/17/19 04/05/21 Multivitamins, Thera [Multivitamin 1 tab PO DAILY 02/26/20 04/05/21 (formulary)] Sulfamethox-Tmp 800-160Mg [Bactrim 1 tab PO MOWEFR 02/26/20 04/05/21 DS 800-160 mg] Hydrocortisone [Cortef] 10 mg PO PC-SUPPER 04/22/20 04/05/21 Hydrocortisone [Cortef] 15 mg PO QAM 04/22/20 04/05/21 Joni/D3/Mag11/Zinc/Podiatry Professor/Jaylon/Bor 1 each PO DAILY 07/28/20 04/05/21 [Caltrate 600+D Plus Tablet] Fluticasone Propionate 220 Mcg 1 puff INHALATION RT-BID 07/28/20 04/05/21 [Flovent 220 Mcg Inhaler (Mhu)] Melatonin 10 mg PO HS 07/28/20 04/05/21 Levocetirizine Dihydrochloride 5 mg PO DAILY 01/05/21 04/05/21 [Xyzal] Linaclotide [Linzess] 145 mcg PO DAILY 04/05/21 04/05/21 Previous Rx's Medication Instructions Recorded Azithromycin [Zithromax Z-pack (6 0 mg PO DIRECTED #1 pack 03/05/21 tabs)] predniSONE 50 mg PO DAILY #5 tab 03/05/21 Baclofen 5 mg PO BID 30 Days #60 tab 04/05/21 Gabapentin 300 mg PO TID 30 Days #90 cap 04/05/21 oxyCODONE HCL/ACETAMINOPHEN 1 tab PO Q8HR PRN 30 Days #90 tab 04/05/21 [Percocet 10-325 mg] oxyCODONE HCL/ACETAMINOPHEN 1 tab PO Q8HR PRN 30 Days #90 tab 04/05/21 [Percocet 10-325 mg] Allergies Allergy/AdvReac Type Severity Reaction Status Date / Time cefuroxime axetil Allergy Dyspnea Verified 04/23/21 21:15 [From Ceftin] moxifloxacin HCl Allergy Dyspnea Verified 04/23/21 21:15 [From Avelox] Penicillins Allergy Dyspnea Verified 04/23/21 21:15 rofecoxib [From Vioxx] Allergy Dyspnea Verified 04/23/21 21:15 blackberry Allergy Rash/Hives Uncoded 04/23/21 21:15 Review of Systems ROS Statement: Those systems with pertinent positive or pertinent negative responses have been documented in the HPI. ROS Other: All systems not noted in ROS Statement are negative. 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 History of Any Multi-Drug Resistant Organisms: None Reported Past Surgical History: Section, Cholecystectomy, Heart Catheterization, Orthopedic Surgery, Tonsillectomy Additional Past Surgical History / Comment(s): RIGHT CARPAL TUNNEL RELEASE ON 04/22/20. R ankle plate/screws, L wrist carpal tunnel release, multiple bronchoscopies, bronchial thermoplasty x3, EGDs, colonoscopies/polypectomy, deviated septal surgery, [facility] pain clinic procedures, PICC/later removed, bilateral cataract removals/lens implants. Past Anesthesia/Blood Transfusion Reactions: Family History of Problems w/ Anesthesia, Postoperative Nausea & Vomiting (PONV) Additional Past Anesthesia/Blood Transfusion Reaction / Comment(s): Pt has never received blood. Occ nausea. DAUGHTER PONV Past Psychological History: No Psychological Hx Reported Smoking Status: Former smoker Past Alcohol Use History: None Reported Past Drug Use History: None Reported - Past Family History Father Family Medical History: Cancer Additional Family Medical History / Comment(s): Colon cancer. Mother Family Medical History: Congestive Heart Failure (CHF), COPD Additional Family Medical History / Comment(s): Mother lived to be 80 yrs old. Daughter(s) Family Medical History: Deep Vein Thrombosis (DVT) General Exam Limitations: no limitations General appearance: alert, in no apparent distress Head exam: Present: atraumatic, normocephalic, normal inspection Eye exam: Present: normal appearance, PERRL, EOMI. Absent: scleral icterus, conjunctival injection, periorbital swelling ENT exam: Present: normal exam, mucous membranes moist Neck exam: Present: normal inspection. Absent: tenderness, meningismus, lymphadenopathy Respiratory exam: Present: wheezes. Absent: normal lung sounds bilaterally, respiratory distress, rales, rhonchi, stridor Cardiovascular Exam: Present: normal rhythm, tachycardia, normal heart sounds. Absent: systolic murmur, diastolic murmur, rubs, gallop, clicks GI/Abdominal exam: Present: soft, normal bowel sounds. Absent: distended, tenderness, guarding, rebound, rigid Extremities exam: Present: normal inspection, full ROM, normal capillary refill. Absent: tenderness, pedal edema, joint swelling, calf tenderness Back exam: Present: normal inspection Neurological exam: Present: alert, oriented X3, CN II-XII intact Psychiatric exam: Present: normal affect, normal mood Skin exam: Present: warm, dry, intact, normal color. Absent: rash Course Vital Signs 04/23/21 04/23/21 04/24/21 21:11 23:50 00:28 Temperature 98.1 F Pulse Rate 106 H 100 93 Respiratory 20 26 H Rate Blood Pressure 146/89 106/73 O2 Sat by Pulse 95 92 L Oximetry 04/24/21 00:35 Temperature Pulse Rate 96 Respiratory Rate Blood Pressure O2 Sat by Pulse Oximetry - Reevaluation(s) Reevaluation #1: 04/23/21 Medical record is reviewed Patient symptoms are improved here in the emergency department Patient informed of results and questions answered Patient is in no acute distress Patient prefers discharged home Chest Pain MDM - MDM 70 female to the ER for evaluation patient presents today for evaluation of chest pain difficulty breathing and bronchospasm. Patient states she feels better with steroid and breathing treatment here in the ER prefers discharged home to follow-up with primary care, pulmonology, cardiology Disposition Clinical Impression: Anterior pleuritic pain, Atypical chest pain, Bronchospasm, Acute exacerbation of chronic obstructive airways disease, Chest pain Disposition: HOME SELF-CARE Condition: Good Is patient prescribed a controlled substance at d/c from ED?: No Referrals: Laurent Gramajo DO [Primary Care Provider] - 1-2 days
[2021-04-23] MEDS ORDERED: methylPREDNISolone SOD SUCCI 125 MG/2 ML VIAL IV STA (22:51)
[2021-04-23] MEDS ORDERED: SODIUM CHLORIDE 0.9% 1,000 ML IV STA (22:51)
[2021-04-23 23:28] LABS: INR 1.1 (<1.2); Prothrombin Time 11.8 sec (9.0-12.0)
[2021-04-23 23:29] LABS: HCT 40.4 % (34.0-46.0); HGB 13.5 gm/dL (11.4-16.0); MCHC 33.4 g/dL (31.0-37.0); MCV 92.8 fL (80.0-100.0); Mean Platelet Volume 8.7; Platelet Count 213 k/uL (150-450); RBC 4.35 m/uL (3.80-5.40); RDW 13.5 % (11.5-15.5); WBC 8.2 k/uL (3.8-10.6)
[2021-04-23] MEDS: IPRATROPIUM-ALBUTEROL 3 ML NEB INHALATION STA ×2 (23:29→23:32)
[2021-04-23 23:31] LABS: Calcium 9.4 mg/dL (8.4-10.2); Magnesium 2.4 mg/dL (1.6-2.3); Potassium 4.6 mmol/L (3.5-5.1); Total Bilirubin 0.4 mg/dL (0.2-1.3); Total Protein 6.1 g/dL (6.3-8.2)
--- NOTE | 2021-04-23 23:47 | XR ---
EXAMINATION TYPE: XR chest 2V DATE OF EXAM: 04/23/2021 COMPARISON: 03/05/2021 HISTORY: Difficulty breathing TECHNIQUE: FINDINGS: Heart and mediastinum are normal. Lungs are clear of infiltrate. There is no heart failure. There are no hilar masses. The bony thorax is intact. IMPRESSION: No active cardiopulmonary disease. Normal heart. No change.
[2021-04-23 23:51] VITALS: BP 106/73; RESP 26
[2021-04-24 00:07] LABS: Eosinophils # (M) 0.08 k/uL (0-0.7); Lymphocytes # (M) 1.15 k/uL (1.0-4.8); Monocytes # (M) 0.25 k/uL (0-1.0); Neutrophils # (M) 6.72 k/uL (1.3-7.7); Neutrophils % (M) 82 %; Nucleated Red Blood Cells 0 /100 WBC (0-0); Total Cells Counted 100
[2021-04-24] MEDS ORDERED: ASPIRIN 81 MG PO STA (00:07)
[2021-04-24] MEDS ORDERED: MORPHINE SULFATE 4 MG/ML SYRINGE IVP STA (00:07)
[2021-04-24] MEDS ORDERED: NITROGLYCERIN SL TABS 0.4 MG TAB SUBLINGUAL PRN (00:07)
[2021-04-24] MEDS ORDERED: MORPHINE SULFATE 4 MG/ML SYRINGE IV PRN (00:07)
[2021-04-24] MEDS ORDERED: SODIUM CHLORIDE 0.9% 1,000 ML IV SCH ×2 (00:15)
[2021-04-24] MEDS ORDERED: IPRATROPIUM 0.5 MG/2.5 ML NEBU INHALATION STA (00:21)
[2021-04-24 00:37] VITALS: PULSE 96
[2021-04-24] MEDS ORDERED: methylPREDNISolone SOD SUCCI 125 MG/2 ML VIAL IV SCH (06:00)
[2021-04-24] MEDS ORDERED: IPRATROPIUM 0.5 MG/2.5 ML NEBU INHALATION SCH (08:00)
[2021-04-25] MEDS ORDERED: ASPIRIN 325 MG TAB PO SCH (09:00)
== END 2021-04-24 00:54 | disposition home or self-care (01) ==
LOC: EC 21:03 → 6NMEDSUR 04-24 00:10 → UNDOADMOB 04-24 00:10 → 6NMEDSUR 04-24 00:21 → EC 04-24 00:54
DX: J44.1 Chronic obstructive pulmonary disease with (acute) exacerbation (principal); J98.01 Acute bronchospasm; M79.7 Fibromyalgia; M19.90 Unspecified osteoarthritis, unspecified site; I10 Essential (primary) hypertension; Z87.891 Personal history of nicotine dependence; Z86.711 Personal history of pulmonary embolism
CPT/HCPCS: 36415; 94640; 93005; 83880; 80053; 83605; 83735; 84484; 85025; 85610; 85730; 71046; 99285; 96374; 96361; J2930

== ENCOUNTER 2021-05-02 07:56 | Day surgery (SDC) | payer MEDICARE, BC ==
[2021-04-28 16:07] VITALS: BMI 47.5
[~2021-05-02 07:56] MED LIST changes: -ATROPINE SULFATE 0.4 MG/ML 1 ML VIAL ONE; +LACTATED RINGERS 1,000 ML IV SCH
[2021-05-02 08:34] VITALS: TEMP 98.1
[2021-05-02] MEDS ORDERED: ROPIVACAINE 5MG/ML 20ML VIAL ONE (08:42)
[2021-05-02] MEDS ORDERED: TRIAMCINOLONE ACETONIDE 40 MG/ML 1 ML VIAL ONE (08:42)
--- NOTE | 2021-05-02 08:56 | P.PCN ---
Date of Procedure: 05/02/21 Surgeon: Eladia Rios Pathology: none sent Condition: stable Disposition: PACU Description of Procedure: Preoperative diagnoses= sacroiliac joint dysfunction and sacroiliitis Procedure= bilateral sacroiliac joint steroid injection under fluoroscopic guidance. Anesthesia= local anesthesia with lidocaine 1% only Estimated blood loss=minimal. Procedure indication= the patient had a history of severe chronic low back pain, diagnosed with sacroiliitis and lumbar sacral facet arthropathy unresponsive to conservative treatment. Procedure description= the patient was seen and identified in the preoperative holding area, risks and benefits and alternative of the procedure and possible complications discussed with the patient, patient signed the consent. an IV was started, and vital signs were monitored and were stable throughout the procedure, patient was placed in the prone position or table and the lumbosacral area was prepped and draped with a sterile fashion, vital signs were closely mo nitored during the procedure.The sacroiliac joint was identified on the AP view of fluoroscopy then the C-arm was tilted to the contralateral oblique position to superimpose the anterior and posterior joint lines on each other and to have a unified joint line with the target point at the inferior one third of this line. I used 25-gauge 3-1/2 inch Quincke spinal needle for this procedure and after getting into the sacroiliac joint I injected 20 mg of Kenalog +2 MLS of Ropivacaine 0.5%. The procedure was repeated on the opposite side in the same way. Patient tolerated the procedure well without any complication, The patient returned to supine position after the back was cleaned and a Band- Aid applied, the patient transported to recovery room in stable condition and he was monitored for 30 minutes before she was discharged home in stable condition . patient will follow up with the pain clinic in a few weeks. A copy of the needle placement was saved to the C-arm machine.
[2021-05-02 09:03] VITALS: RESP 18
--- NOTE | 2021-05-02 09:07 | FL ---
Fluoroscopy History: BILAT SI JT INJ BILATERAL SI JOINTS. 2 IMAGES SENT. [address] Rios.
[2021-05-02 09:18] VITALS: BP 107/67; PULSE 70
== END 2021-05-02 09:26 | disposition home or self-care (01) ==
LOC: ORPAIN 07:56
PROVIDERS: ATTEND Anesthesiology
DX: M46.1 Sacroiliitis, not elsewhere classified (principal)
CPT/HCPCS: G0260; J3301; J2795

== ENCOUNTER → 2021-05-31 | Outpatient (CLI) | payer MEDICARE, BC ==
--- NOTE | 2021-05-31 13:17 | P.PAINPG ---
Subjective Progress Note Date: 05/31/21 This is a follow-up visit for this 70 years old female with a history of severe and chronic low back pain secondary to lumbar degenerative disc disease, lumbar spondylosis with facet arthropathy, patient reports good benefit from this. Currently she reports increase of her low back pain with radiation to the buttock bilaterally She reports that the medications are helping control her pain and improve activities of daily living. She continues to walk for exercise. She does report mild side effects from opiate medication including constipation. The patient currently on Percocet 10/325 by mouth every 8 hours when necessary , and Neurontin 300 mg every 8 hours ( she is using Xeralto because of PE ) and baclofen 5 mg twice a day.Patient here today for follow-up visit and medication refill and procedure followup for recent bilateral SIJ injection. n unfortunately the injections were not helpful for her at all. She does not wish to pursue any further interventions at this time. Medication is doing okay for her and she has no changes in her overall health. Review of systems is negative for chest pain, shortness of breath, new onset weakness, abdominal pain, malaise, fever, night sweats, chills Physical Examinations : -Constitutiona : Cooperative , not in acute distress . -HEENT : nech : supple , no Lymphadenopathy , normal thyroid size . : eyes : no ptosis , no icterus, no photophobia . - neurologic : Cranial nerve II to XII intact , no focal neurological deffecit . -psychatric : alert , oriented X 3 , appropriate affect , intact judgment and insight . -Lymphatic : no Lymphadenopathy . - musculoskeltal : Lumber spine moter stegnth lower extremities ,thigh and legs 5/5 Right side , 5/5 Left side deep tendon reflexes : normal Knee Jerk , normal ankle Jerk lumber facet Loading Test =positive Right , positive Left Range of motion of the lumbar spine Flexion 30 degrees, extension 10 degrees strait leg raising test = positive at 30 degree Fabere test= positive Right , and positive LT . Sever tenderness over the Sacroiliac joint on the Right , and Left sides Gaenslen test= positive right ,and positive left . Seated flexion test= positive right ,and positive Left . Distraction test= positive bilaterally Sacroiliac compression test= positive bilaterally Assessment and Plan= chronic low back pain secondary to lumbar degenerative disc disease , lumbar spondylosis with lumbar facet arthropathy . , Bilateral sacroiliitis Patient continued to have severe low back pain after lumbar epidural steroid injections done recently, including most of the symptoms coming from the facetogenic component She complained of frequent episodes of muscle spasm in the low back and lower extremity chronic and current use of high-risk medication (opioids) Patient denies any side effects of the current pain medication and the current treatment/medication helping the patient to do activity of daily living , Diagnoses, prognosis, treatment options, including but not limited to physical therapy, medication management, interventional therapies, and surgery, were discussed with the patient All the questions answered The narcotic consent was signed and patient agreed and understood the side effects and complications of opioid treatment. Patient signed the narcotic agreement, and was orally counseled, not to overuse, not to abuse, not to Divert , not tp sell pain medication, and to take it as prescribed only, Patient was counseled not to drive or operate heavy equipment while using narcotic medication, and advised not to use alcohol or any Illicit drugs while using the narcotis, understanding that lack of compliance with any of the above instructions, will likely to cause discharge from, the pain service, not to renew his narcotic prescriptions MAPS Reviwed and it was apropriate . UDS reviewed and it was appropriate Medication managements= refill Neurontin 300 mg 3 times a day dispense 90 with 1 refill Baclofen 5 mg twice a day dispense 60 with 1 refill Refill Percocet 10/325 every 8 hours when necessary for pain dispense 90 She will follow up in the pain clinic in 2 months for medication refill I have spent 25 minutes on patient care today. The time was used to review the medical records including relevant urine studies and prescription history, review of the available imaging, evaluation and examination of the patient, coordination of care with the medical staff and if applicable referring physicians, as well as creation of the medical record. PQRS Measure Charge Sheet Measure #130: Documentation of Current Meds in Medical Chart: Patient's medications documented in chart Measure #226: Tobacco Use: Screen & Cessation Intervention: Pt not a tobacco user Measure #111: Pneumonia Vaccination: Pneumococcal vaccine administered or previously received Measure #47: Advance Care Plan: Advance care planning discussed & documented, pt chose/unable to give Measure #412: Opioid Treatment Agreement: Documented signed opioid trtmnt agr eemnt min once during opioid trtmnt Measure #408: Opioid Therapy Follow-up Evaluation: Patient had f/u eval minimum every 3 months during opioid therapy Measure #317: Preventitive Care & Scrn High Bld Press & F/U: Normal blood pressure, f/u not required Measure #128: Body Mass Index (BMI) Screening & Follow-up: BMI documented ABOVE normal parameters - f/u documented Measure #131: Pain Assessment & Follow-up: Pain positive & plan documented, Follow-up scheduled Measure #431: Unhealthy Alcohol Use Preventative Care & Scrn: Patient not identified as an unhealthy alcohol user PQRS Measure Charge Sheet PQRS Narrative: Smoking Status Former smoker Narcotic Agreement Date Signed 05/10/20 Pain Intensity [Lower Back] 7 Scale Used Numeric (1 - 10) Hx Alcohol Use (MH) No Home Medications: Ambulatory Orders Albuterol Inhaler (Mhu) [Ventolin Hfa Inhaler (Mhu)] 2 puff INHALATION Q6HR PRN 11/05/14 Ubidecarenone [Co Q-10] 200 mg PO DAILY 02/24/17 Rivaroxaban [Xarelto] 10 mg PO QAM 08/27/17 Ascorbic Acid [Vitamin C] 500 mg PO DAILY #0 06/27/18 Benzonatate [Tessalon Perles] 100 mg PO TID PRN 06/27/18 Cholecalciferol [Vitamin D3 (25 Mcg = 1000 Iu)] 1,000 unit PO DAILY 06/27/18 Levothyroxine Sodium [Synthroid] 125 mcg PO QAM 06/27/18 Magnesium Gluconate [Magonate] 500 mg PO DAILY 06/27/18 Rosuvastatin Calcium [Crestor] 5 mg PO HS 06/27/18 Losartan Potassium 100 mg PO QAM 10/31/18 Xolair(Dose Unkown) 1 injection INJ QMONTH 04/01/19 Docusate [Colace] 100 mg PO DAILY PRN 06/24/19 Vitamin C/Biotin [Hair, Skin and Nails] 2 tab PO DAILY 07/02/19 Denosumab [Prolia] 60 mg SQ Q180D 07/13/19 Diltiazem Cd [Cardizem Cd] 240 mg PO 1600 07/13/19 Salmeterol Xinafoate [Serevent Diskus] 1 puff INHALATION BID 07/13/19 Esomeprazole Magnesium [NexIUM] 20 mg PO QAM 03/12/20 Multivitamins, Thera [Multivitamin (formulary)] 1 tab PO DAILY 02/26/20 Sulfamethox-Tmp 800-160Mg [Bactrim DS 800-160 mg] 1 tab PO MOWEFR 02/26/20 Hydrocortisone [Cortef] 10 mg PO PC-SUPPER 04/22/20 Hydrocortisone [Cortef] 15 mg PO QAM 04/22/20 Joni/D3/Mag11/Zinc/Machine Straw Hat Presser/Jaylon/Bor [Caltrate 600+D Plus Tablet] 1 each PO DAILY 07/28/20 Melatonin 10 mg PO HS 07/28/20 Levocetirizine Dihydrochloride [Xyzal] 5 mg PO DAILY 01/05/21 Linaclotide [Linzess] 290 mcg PO DAILY 04/05/21 Vit C/E/Zn/Coppr/Lutein/Zeaxan [Preservision Areds 2 Softgel] 1 each PO BID 04/28/21 Flovent (Unknown Dose) 1 puff INHALATION BID 05/29/21 Baclofen 5 mg PO BID 30 Days #60 tab 05/31/21 Gabapentin 300 mg PO TID 30 Days #90 cap 05/31/21 oxyCODONE HCL/ACETAMINOPHEN [Percocet 10-325 mg] 1 tab PO Q8HR PRN 30 Days #90 tab 05/31/21 oxyCODONE HCL/ACETAMINOPHEN [Percocet 10-325 mg] 1 tab PO Q8HR PRN 30 Days #90 tab 05/31/21 Controlled Substance Measures - Controlled Substance Measures Is patient prescribed a controlled substance at discharge?: Yes When asked, does pt state using other controlled substances?: No If prescribed controlled substance>3 days was MAPS reviewed?: Yes If Rx opioid, was Start Talking consent form obtained?: Yes If opioid is for acute pain is fill amount 7 days or less?: No Was information provided regarding opioid addiction?: No
[2021-05-31 13:39] VITALS: BP 154/95; PULSE 91; RESP 18; TEMP 98.2
== END ==
LOC: PNWHC3 12:47
PROVIDERS: ATTEND Anesthesiology
DX: M51.36 Other intervertebral disc degeneration, lumbar region (principal); M47.816 Spondylosis without myelopathy or radiculopathy, lumbar region; G89.29 Other chronic pain; M46.1 Sacroiliitis, not elsewhere classified; Z87.891 Personal history of nicotine dependence; Z88.0 Allergy status to penicillin; Z88.1 Allergy status to other antibiotic agents; Z88.6 Allergy status to analgesic agent; Z91.018 Allergy to other foods
CPT/HCPCS: 99211

== ENCOUNTER → 2021-07-26 | Outpatient (CLI) | payer MEDICARE, BC ==
[2021-07-26 13:04] VITALS: BP 151/81; PULSE 95; RESP 18; TEMP 98
--- NOTE | 2021-07-26 13:18 | P.PN ---
Subjective Progress Note Date: 07/26/21 This is a follow-up visit for this 70 years old female with a history of severe and chronic low back pain secondary to lumbar degenerative disc disease, lumbar spondylosis with facet arthropathy, patient reports good benefit from this. Currently she reports increase of her low back pain with radiation to the buttock bilaterally She reports that the medications are helping control her pain and improve activities of daily living. She continues to walk for exercise. She does report mild side effects from opiate medication including constipation. The patient currently on Percocet 10/325 by mouth every 8 hours when necessary , and Neurontin 300 mg every 8 hours ( she is using Xeralto because of PE ) and baclofen 5 mg twice a day.Patient here today for follow-up visit and medication refill. She is complaining of increased pain, and she reported that , she is getting minimal relief from the pain medication She's having difficulty sleeping at night secondary to the intensity of the pain, patient reported that she is having Frequent muscle spasm in the lower extremity, and she wished to increase the frequency of muscle relaxant she is currently taking baclofen twice a day Review of systems is negative for chest pain, shortness of breath, new onset weakness, abdominal pain, malaise, fever, night sweats, chills Physical Examinations : -Constitutiona : Cooperative , not in acute distress . -HEENT : nech : supple , no Lymphadenopathy , normal thyroid size . : eyes : no ptosis , no icterus, no photophobia . - neurologic : Cranial nerve II to XII intact , no focal neurological deffecit . -psychatric : alert , oriented X 3 , appropriate affect , intact judgment and insight . -Lymphatic : no Lymphadenopathy . - musculoskeltal : Lumber spine moter stegnth lower extremities ,thigh and legs 5/5 Right side , 5/5 Left side deep tendon reflexes : normal Knee Jerk , normal ankle Jerk lumber facet Loading Test =positive Right , positive Left Range of motion of the lumbar spine Flexion 30 degrees, extension 10 degrees strait leg raising test = positive at 30 degree Fabere test= positive Right , and positive LT . Sever tenderness over the Sacroiliac joint on the Right , and Left sides Gaenslen test= positive right ,and positive left . Seated flexion test= positive right ,and positive Left . Distraction test= positive bilaterally Sacroiliac compression test= positive bilaterally Assessment and Plan= chronic low back pain secondary to lumbar degenerative disc disease , lumbar spondylosis with lumbar facet arthropathy . , Bilateral sacroiliitis Patient continued to have severe low back pain after lumbar epidural steroid injections done recently, including most of the symptoms coming from the facetogenic component She complained of frequent episodes of muscle spasm in the low back and lower extremity chronic and current use of high-risk medication (opioids) Patient denies any side effects of the current pain medication and the current treatment/medication helping the patient to do activity of daily living , Diagnoses, prognosis, treatment options, including but not limited to physica l therapy, medication management, interventional therapies, and surgery, were discussed with the patient All the questions answered The narcotic consent was signed and patient agreed and understood the side effects and complications of opioid treatment. Patient signed the narcotic agreement, and was orally counseled, not to overuse, not to abuse, not to Divert , not tp sell pain medication, and to take it as prescribed only, Patient was counseled not to drive or operate heavy equipment while using narcotic medication, and advised not to use alcohol or any Illicit drugs while using the narcotis, understanding that lack of compliance with any of the above instructions, will likely to cause discharge from, the pain service, not to renew his narcotic prescriptions MAPS Reviwed and it was apropriate . UDS ordered today Medication managements= refill Neurontin 300 mg 3 times a day dispense 90 with 1 refill Baclofen 5 mg Q8 h PRN muscle spasm a day dispense 90 with 1 refill Restart Percocet 10/325 every 8 hours when necessary for pain dispense 90 She will follow up in the pain clinic in 2 months for medication refill Time with Patient: Less than 30 PQRS Measure Charge Sheet Measure #130: Documentation of Current Meds in Medical Chart: Patient's medications documented in chart Measure #226: Tobacco Use: Screen & Cessation Intervention: Pt not a tobacco user Measure #111: Pneumonia Vaccination: Pneumococcal vaccine administered or previously received Measure #47: Advance Care Plan: Advance care planning discussed & documented, pt chose/unable to give Measure #412: Opioid Treatment Agreement: Documented signed opioid trtmnt agreemnt min once during opioid trtmnt Measure #408: Opioid Therapy Follow-up Evaluation: Patient had f/u eval minimum every 3 months during opioid therapy Measure #317: Preventitive Care & Scrn High Bld Press & F/U: Normal blood pressure, f/u not required Measure #128: Body Mass Index (BMI) Screening & Follow-up: BMI documented ABOVE normal parameters - f/u documented Measure #131: Pain Assessment & Follow-up: Pain positive & plan documented, Follow-up scheduled Measure #431: Unhealthy Alcohol Use Preventative Care & Scrn: Patient not identified as an unhealthy alcohol user Objective - Vital Signs Vital signs: Vital Signs Temp 98 F 07/26/21 12:56 Pulse 95 07/26/21 12:56 Resp 18 07/26/21 12:56 BP 151/81 07/26/21 12:56 Pulse Ox 95 07/26/21 12:56 Intake & Output 07/25/21 07/26/21 07/26/21 18:59 06:59 18:59 Weight 107.048 kg
== END ==
LOC: PNWHC3 12:43
PROVIDERS: ATTEND Specialist
DX: M51.36 Other intervertebral disc degeneration, lumbar region (principal); M47.816 Spondylosis without myelopathy or radiculopathy, lumbar region; M46.1 Sacroiliitis, not elsewhere classified; G89.29 Other chronic pain; Z79.891 Long term (current) use of opiate analgesic; Z88.0 Allergy status to penicillin; Z88.1 Allergy status to other antibiotic agents; Z91.018 Allergy to other foods; Z87.891 Personal history of nicotine dependence
CPT/HCPCS: 80307; G0482; G0463; 99212

== ENCOUNTER → 2021-09-06 | Outpatient (CLI) | payer MEDICARE, BC ==
--- NOTE | 2021-09-07 10:10 | BD ---
EXAMINATION TYPE: Axial Bone Density DATE OF EXAM: 09/06/2021 COMPARISON: NONE CLINICAL HISTORY: Height: 4 FT 10 IN Weight: 239 FRAX RISK QUESTIONS: Alcohol (3 or more units per day): NO Family History (Parent hip fracture): NO Glucocorticoids (More than 3mos): YES (Ex: prednisone, prednisolone, methylprednisolone, dexamethasone, and hydrocortisone). History of Fracture in Adulthood: YES Secondary Osteoporosis: 1. Type 1 Diabetes: NO 2. Hyperthyroidism: NO 3. Menopause before 45: YES 4. Malnutrition: NO 5. Chronic liver disease: NO Rheumatoid Arthritis: NO Current Tobacco Use: NO RISK FACTORS HISTORY OF: Surgery to Spine/Hip(right/left)/Wrist (right/left): NO Family History of Osteoporosis: NO Active: NO Diet low in dairy products/other sources of calcium: NO Postmenopausal woman: YES Take estrogen and/or progesterone medications: TOOK HRT FOR YEARS NO LONGER TAKES Lost more than 2 inches in height since high school: YES Frequent falls: NO Poor Health: FAIR Hyperparathyroidism: NO Adrenal Insufficiency: YES MEDICATIONS: Prednisone or other steroids: YES How Lon-30 YEARS Thyroid Medications: YES Which medication: SYNTHROID How Long: FOR APPROX 30 YEARS Osteoporosis Medications: YES Which medication: PROLIA How Long: APPROX 3 YEARS Additional Medications: SYNTHROID, LOSARTAN, LINZESS,CARDIZEM, NEXIUM, SEREVENT, FLOVENT, ROSUVASTATI N, ALLER GRA, BACTRIM, PERCOCET, NEURONTIN, BACLOFEN, CORTEF, XER ALTO, PROLIA, ZOLAIR, PREVIDENT, Additional History: EXAM MEASUREMENTS: Bone mineral densitometry was performed using the [facility]. Bone mineral density as measured about the Lumbar spine is: ----- L1-L4(G/cm2): 1.309 T Score Values are as follows: ----- L2: 1.0 ----- L3: 1.3 ----- L4: 0.2 ----- L1-L4: 1.1 Bone mineral density has: INCREASED 3.7 % since study of: 2019 Bone mineral density about the R hip (g/cm2): 0.760 Bone mineral density about the L hip (g/cm2): 0.787 T Score values are as follows: -----R Neck: -2.0 -----L Neck: -1.8 -----R Total: -1.4 -----L Total: -1.5 Bone mineral density has: INCREASED 3.1 % since study of: 2019 IMPRESSION: osteopenia NOTE: T-SCORE=SD OF THE YOUNG ADULT MEAN.
== END | disposition home or self-care (01) ==
LOC: RADBDWWP 16:09
PROVIDERS: ATTEND Internal Medicine Rheumatology
DX: M85.89 Other specified disorders of bone density and structure, multiple sites (principal); Z78.0 Asymptomatic menopausal state
CPT/HCPCS: 77080

== ENCOUNTER 2021-09-07 20:10 | Emergency (ER) | payer MEDICARE, BC ==
[2021-09-07 20:17] VITALS: TEMP 98.4
--- NOTE | 2021-09-07 21:58 | US ---
EXAMINATION TYPE: US VENOUS DOPPLER DUPLEX RIGHT LOWER EXT DATE OF EXAM: 09/07/2021 9:16 PM COMPARISON: US CLINICAL HISTORY: pain bruising and swelling. Patient fell, pain bruising, and swelling. Hx PE. Patie nt on Xarelto. SIDE PERFORMED: Right TECHNIQUE: The lower extremity deep venous system is examined utilizing real time linear array sonog chanel with graded compression, doppler sonography and color-flow sonography. VESSELS IMAGED: Common Femoral Vein Deep Femoral Vein Greater Saphenous Vein * Femoral Vein Popliteal Vein Small Saphenous Vein * Proximal Calf Veins (* superficial vessels) RIGHT LOWER EXTREMITY FINDINGS: No evidence of DVT in veins imaged at this time. Limited due to carolyn ent's pain tolerance. Unable to fully compress distal femoral vein due to pain. Scanned right medial upper calf at patient's area of concern and bruising- heterogeneous tissue visua lized. IMPRESSION: RIGHT LOWER EXTREMITY: NEGATIVE EXAMINATION SEEN, DESCRIBED ABOVE.
--- NOTE | 2021-09-07 22:21 | XR ---
EXAMINATION TYPE: XR knee complete RT DATE OF EXAM: 09/07/2021 COMPARISON: NONE HISTORY: Knee pain TECHNIQUE: 3 views FINDINGS: There is no evidence of fracture nor dislocation. Joint spaces medially and laterally are n ormal. There is mild spurring in the patella. There is patellofemoral joint space narrowing. 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 No fracture.
[2021-09-07] MEDS ORDERED: MORPHINE SULFATE 2 MG/ML SYRINGE IM STA (23:45)
[2021-09-08] MEDS ORDERED: fentaNYL (PF) 50 MCG/ML 2 ML AMP IM STA (00:23)
--- NOTE | 2021-09-08 01:35 | ED ---
Lower Extremity Injury HPI - General Chief Complaint: Extremity Injury, Lower Stated Complaint: Fall 1 step, R Leg Pain Time Seen by Provider: 09/07/21 22:41 Source: patient, family Mode of arrival: ambulatory Limitations: no limitations - History of Present Illness Initial Comments: Patient is 71-year-old woman complaining of pain to the right leg just distal to the knee. She states that she did hit her leg while walking. She was concerned about the amount of swelling and pain. She is able to bear weight. No loss of sensation or any weakness. MD Complaint: leg injury -: hour(s) Injury: Leg: Right Type of Injury: blunt Place: home Severity: moderate Improves With: nothing Worsens With: palpation Context: direct blow Associated Symptoms: swelling - Related Data Home Medications Medication Instructions Recorded Confirmed Ubidecarenone [Co Q-10] 200 mg PO HS 02/24/17 09/18/21 Rivaroxaban [Xarelto] 10 mg PO DAILY 08/27/17 09/18/21 Levothyroxine Sodium [Synthroid] 125 mcg PO QAM 06/27/18 09/18/21 Rosuvastatin Calcium [Crestor] 5 mg PO HS 06/27/18 09/18/21 Losartan Potassium 100 mg PO DAILY 10/31/18 09/18/21 Docusate [Colace] 100 mg PO BID PRN 06/24/19 09/18/21 Vitamin C/Biotin [Hair, Skin and 1 tab PO DAILY 07/02/19 09/18/21 Nails] Denosumab [Prolia] 60 mg SQ Q180D 07/13/19 09/18/21 Diltiazem Cd [Cardizem Cd] 240 mg PO DAILY 07/13/19 09/18/21 Salmeterol Xinafoate [Serevent 1 puff INHALATION RT-BID 07/13/19 09/18/21 Diskus] Sulfamethox-Tmp 800-160Mg [Bactrim 1 tab PO MOWEFR 02/26/20 09/18/21 DS 800-160 mg] Joni/D3/Mag11/Zinc/It Trainee/Jaylon/Bor 1 tab PO DAILY 07/28/20 09/18/21 [Caltrate 600+D Plus Tablet] Levocetirizine Dihydrochloride 5 mg PO DAILY 01/05/21 09/18/21 [Xyzal] Vit C/E/Zn/Coppr/Lutein/Zeaxan 1 tab PO BID 04/28/21 09/18/21 [Preservision Areds 2 Softgel] Baclofen 5 mg PO TID PRN 09/07/21 09/18/21 Cholecalciferol [Vitamin D3 (25 25 mcg PO DAILY 09/07/21 09/18/21 Mcg = 1000 Iu)] Esomeprazole Magnesium [NexIUM 20 mg PO DAILY 09/07/21 09/18/21 24Hr] Fluticasone Propionate [Flovent 1 puff INHALATION RT-BID 09/07/21 09/18/21 Diskus] Gabapentin 300 mg PO TID 09/07/21 09/18/21 Gabapentin [Neurontin] 600 mg PO HS 09/07/21 09/18/21 Hydrocortisone [Cortef] 10 mg PO W/SUPPER 09/07/21 09/18/21 Hydrocortisone [Cortef] 15 mg PO DAILY 09/07/21 09/18/21 Ipratropium Nebulized [Atrovent 0.5 mg INHALATION RT-QID PRN 09/07/21 09/18/21 Nebulized 0.2 MG/ML] Linaclotide [Linzess] 290 mcg PO DAILY 09/07/21 09/18/21 Magnesium Oxide [Harper] 500 mg PO DAILY 09/07/21 09/18/21 Multivit-Min/Iron/Folic/Lutein 1 tab PO DAILY 09/07/21 09/18/21 [Centrum Silver Women Tablet] Vitamin C Gummies 250mg 250 mg PO BID 09/07/21 09/18/21 Previous Rx's Medication Instructions Recorded oxyCODONE HCL/ACETAMINOPHEN 1 tab PO Q8HR PRN 30 Days #90 tab 07/26/21 [Percocet 10-325 mg] Allergies Allergy/AdvReac Type Severity Reaction Status Date / Time cefuroxime axetil Allergy Dyspnea Verified 09/18/21 09:31 [From Ceftin] moxifloxacin HCl Allergy Dyspnea Verified 09/18/21 09:31 [From Avelox] Penicillins Allergy Dyspnea Verified 09/18/21 09:31 rofecoxib [From Vioxx] Allergy Dyspnea Verified 09/18/21 09:31 blackberry Allergy Rash/Hives Uncoded 12/13/21 09:31 Review of Systems ROS Statement: Those systems with pertinent positive or pertinent negative responses have been documented in the HPI. ROS Other: All systems not noted in ROS Statement are negative. 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 History of Any Multi-Drug Resistant Organisms: None Reported Past Surgical History: Section, Cholecystectomy, Heart Catheterization, Orthopedic Surgery, Tonsillectomy Additional Past Surgical History / Comment(s): RIGHT CARPAL TUNNEL RELEASE ON 04/22/20. R ankle plate/screws, L wrist carpal tunnel release, multiple bronchoscopies, bronchial thermoplasty x3, EGDs, colonoscopies/polypectomy, deviated septal surgery, [facility] pain clinic procedures, PICC/later removed, bilateral cataract removals/lens implants. Past Anesthesia/Blood Transfusion Reactions: Family History of Problems w/ Anesthesia, Postoperative Nausea & Vomiting (PONV) Additional Past Anesthesia/Blood Transfusion Reaction / Comment(s): Pt has never received blood. Occ nausea. DAUGHTER PONV Past Psychological History: No Psychological Hx Reported Smoking Status: Former smoker - Past Family History Father Family Medical History: Cancer Additional Family Medical History / Comment(s): Colon cancer. Mother Family Medical History: Congestive Heart Failure (CHF), COPD Additional Family Medical History / Comment(s): Mother lived to be 80 yrs old. Daughter(s) Family Medical History: Deep Vein Thrombosis (DVT) General Exam Limitations: no limitations General appearance: alert, in no apparent distress Respiratory exam: Present: normal lung sounds bilaterally. Absent: respiratory distress, wheezes, rales, rhonchi, stridor Cardiovascular Exam: Present: regular rate, normal rhythm, normal heart sounds. Absent: systolic murmur, diastolic murmur, rubs, gallop Extremities exam: Present: tenderness, normal capillary refill, other (Patient has hematoma in the right pretibial area. No evidence of DVT.). Absent: pedal edema Right Hip exam: Present: normal inspection, full ROM Upper Leg exam: Present: normal inspection, full ROM. Absent: tenderness, swelling Knee exam: Present: normal inspection, full ROM. Absent: tenderness, swelling Lower Leg exam: Present: full ROM, tenderness, swelling, ecchymosis. Absent: normal inspection, abrasion, laceration, deformity, crepitus, dislocation, erythema, palpable cord, Homans' sign Ankle exam: Present: normal inspection, full ROM. Absent: tenderness, swelling Foot/Toe exam: Present: normal inspection, full ROM. Absent: tenderness, swelling Neurovascular tendon exam: Present: no vascular compromise. Absent: motor deficit, sensory deficit, tendon deficit Neurological exam: Present: alert. Absent: motor sensory deficit Skin exam: Present: warm, dry, intact Course Vital Signs 09/07/21 09/08/21 20:14 01:54 Temperature 98.4 F Pulse Rate 121 H 88 Respiratory 22 20 Rate Blood Pressure 119/80 148/87 O2 Sat by Pulse 96 96 Oximetry Medical Decision Making - Medical Decision Making Patient is 71-year-old woman with contusion and resulting hematoma to the right pretibial area. Discussed appropriate care, follow-up and return parameters. Disposition Clinical Impression: Contusion Disposition: HOME SELF-CARE Condition: Good Instructions (If sedation given, give patient instructions): Contusion in Adults (ED) Is patient prescribed a controlled substance at d/c from ED?: No Referrals: Laurent Gramajo DO [Primary Care Provider] - 1-2 days Charly Mukherjee DO [Doctor of Osteopathic Medicine] - 1-2 days
[2021-09-08 01:55] VITALS: BP 148/87; PULSE 88; RESP 20
== END 2021-09-08 01:53 | disposition home or self-care (01) ==
LOC: EC 20:10
DX: S80.11XA Contusion of right lower leg, initial encounter (principal); I10 Essential (primary) hypertension; J44.9 Chronic obstructive pulmonary disease, unspecified; M79.7 Fibromyalgia; M19.90 Unspecified osteoarthritis, unspecified site; M81.0 Age-related osteoporosis without current pathological fracture; Z87.891 Personal history of nicotine dependence; Z79.01 Long term (current) use of anticoagulants; Z79.890 Hormone replacement therapy; Z79.899 Other long term (current) drug therapy; Z88.0 Allergy status to penicillin; Z86.711 Personal history of pulmonary embolism; W10.9XXA Fall (on) (from) unspecified stairs and steps, initial encounter; Y92.009 Unspecified place in unspecified non-institutional (private) residence as the place of occurrence of the external cause
CPT/HCPCS: 73562; 93971; 99284; 96372 ×2; J3010; J2270

== ENCOUNTER → 2021-09-18 | Outpatient (CLI) | payer MEDICARE, BC ==
[2021-09-18 09:40] VITALS: BP 137/74; PULSE 82; RESP 16; TEMP 98.2
--- NOTE | 2021-10-16 13:04 | P.PN ---
Progress Note - Text Progress Note Date: 10/16/21 Pt called clinic today and stated she could not fill Percocet 10/ 325mg #90 prescription at [facility]'s pharmacy. She was only given #21 pills which is a 7 day supply. She was told that based on the new year, her insurance could only authorize a 7 day prescription. I called [facility]'s pharmacy and was told by the pharmacist that the prescription was dropped off 10/12/21 and picked up on 10/14/21 for a quantity of #21. I wrote new prescriptions for her. Percocet 10 /325mg q8h prn pain #90 to fill after 10/21/21 and a Percocet 10 /325mg q8h prn pain #90 to fill after 11/21/21.
== END ==
LOC: PNWHC3 08:54
DX: Z76.0 Encounter for issue of repeat prescription (principal); Z88.1 Allergy status to other antibiotic agents; Z88.0 Allergy status to penicillin; Z91.018 Allergy to other foods; Z88.6 Allergy status to analgesic agent; Z87.891 Personal history of nicotine dependence
CPT/HCPCS: 99211

== ENCOUNTER → 2022-01-30 | Outpatient (CLI) | payer MEDICARE, BC ==
--- NOTE | 2022-01-31 12:14 | MM ---
Reason for exam: screening (asymptomatic). Last mammogram was performed 1 year and 2 months ago. History: Patient is postmenopausal. Family history of breast cancer in paternal aunt. Physical Findings: A clinical breast exam by your physician is recommended on an annual basis and results should be correlated with mammographic findings. MG 3D Screening Mammo W/Cad Bilateral CC and MLO view(s) were taken. Prior study comparison: November 23, 2020, bilateral MG 3d screening mammo w/cad. July 30, 2019, bilateral MG 3d screening mammo w/cad. There are scattered fibroglandular densities. There is no discrete abnormality. ASSESSMENT: Negative, BI-RAD 1 RECOMMENDATION: Routine screening mammogram of both breasts in 1 year.
== END | disposition home or self-care (01) ==
LOC: RADMAMWWP 14:28
PROVIDERS: ATTEND Family Medicine
DX: Z12.31 Encounter for screening mammogram for malignant neoplasm of breast (principal); Z78.0 Asymptomatic menopausal state; Z80.3 Family history of malignant neoplasm of breast
CPT/HCPCS: 77063; 77067

== ENCOUNTER 2022-02-12 18:31 | Emergency (ER) | payer MEDICARE, BC ==
[2022-02-12 19:52] VITALS: BP 157/96; PULSE 106; RESP 18; TEMP 98.4
[2022-02-12 20:29] LABS: Appearance,Urine Clear (Clear); Bilirubin,Urine Negative (Negative); Blood,Urine Negative (Negative); Color,Urine Light Yellow; Glucose,Urine (UA) Negative (Negative); Ketones,Urine Negative (Negative); Leukocyte Esterase,Urine Negative (Negative); Nitrite,Urine Negative (Negative); PH, Urine 7.5 (5.0-8.0); Protein,Urine Negative (Negative); Specific Gravity,Urine 1.008 (1.001-1.035); Urobilinogen,Urine <2.0 mg/dL (<2.0)
[2022-02-12 20:31] LABS: HCT 43.1 % (34.0-46.0); HGB 13.4 gm/dL (11.4-16.0); Hypochromasia Slight; MCH 29.9 pg (25.0-35.0); MCHC 31.1 g/dL (31.0-37.0); Mean Platelet Volume 8.3; Platelet Count 234 k/uL (150-450); RBC 4.49 m/uL (3.80-5.40); RDW 15.3 % (11.5-15.5)
[2022-02-12 20:34] LABS: INR 1.1 (<1.2); Partial Thromboplastin Time 25.6 sec (22.0-30.0); Prothrombin Time 11.3 sec (9.0-12.0)
[2022-02-12 20:36] LABS: Albumin 4.2 g/dL (3.5-5.0); Calcium 9.4 mg/dL (8.4-10.2); Potassium 4.3 mmol/L (3.5-5.1); Total Bilirubin 0.9 mg/dL (0.2-1.3)
--- NOTE | 2022-02-12 20:51 | XR ---
EXAMINATION TYPE: XR chest 2V DATE OF EXAM: 02/12/2022 COMPARISON: 04/23/2021 HISTORY: Difficulty breathing TECHNIQUE: 2 views FINDINGS: Heart is normal. Lungs are clear of infiltrate. There is no heart failure. There are no hil ar masses. Costophrenic angles are clear. IMPRESSION: No active cardiopulmonary disease. No change.
[2022-02-12 21:17] LABS: Monocytes # (M) 0.35 k/uL (0-1.0); Neutrophils # (M) 5.95 k/uL (1.3-7.7); Neutrophils % (M) 85 %; Nucleated Red Blood Cells 0 /100 WBC (0-0); Total Cells Counted 100
== END 2022-02-13 00:28 | disposition left against medical advice (07) ==
LOC: EC 18:31
DX: Z53.21 Procedure and treatment not carried out due to patient leaving prior to being seen by health care provider (principal)
CPT/HCPCS: 36415; 71046; 80053; 81003; 84484; 85025; 85610; 85730; 93005; 99499

== ENCOUNTER → 2022-02-19 | Outpatient (CLI) | payer MEDICARE, BC ==
--- NOTE | 2022-02-19 10:21 | P.PN ---
Subjective Progress Note Date: 02/19/22 Principal diagnosis: A 71 yr old female with at side with a history of severe and chronic low back pain secondary to lumbar degenerative disc diseases and lumbar spondylosis with facet arthropathy presents today for medication refills. Pain level is currently at 5 out of 10 in intensity, constant, pinching, stabbing, sharp in character in the lower aspects of the lumbar spine with radiation of pain down the lower extremities. Pain is provoked by palpation, twisting and bending. Pain is alleviated with medications, topicals, heat, physical therapy years ago, use of a cane for ambulation, repositioning, laying supine with the legs elevated and rest. Patient is currently on Percocet 10/325 #90, baclofen, Tylenol OTC. Patient denies any side effects of the medication(s), denies excessive drowsiness or sleepiness, denies suicidal ideation and reports that the current pain medication is helping to control the pain and improve activities of daily living. Patient denies any motor or sensory deficits. Patient denies any fever or night sweats, denies any change in the bowel movements or urination. Physical Examination: -Constitutional: Cooperative. Not in acute distress . -HEENT: Neck is supple. No lymphadenopathy. No thyromegaly. Normal thyroid size. Eyes: No ptosis , no icterus, no photophobia. ENT: No auditory deficits. Normal oropharynx. No Thrush. - Respiratory: Chest clear to auscultations bilaterally. No wheezing. No rhonchi. - Cardiovascular: Regular rate and rhythm. S1 / S2 , no S3 , no S4. - Gastrointestinal: Abdomen soft no tenderness. Bowel sounds positive in all four quadrants. No organomegaly. - Genitourinary: Deferred. - Neurologic: Cranial nerve II to XII intact. No focal neurological deficits. - Psychatric: Alert & oriented x 3. Matching mood & appropriate affect. Judgment and insight intact. - Lymphatic: No Lymphadenopathy. - Musculoskeletal: Cervical spine: Muscle bulk/ tone/ strength in the bilateral upper extremities normal. Facet loading test cervical area positive. Lumbar spine: Motor bulk/ tone/ strength lower extremities , thigh and legs : 5/5 Deep tendon reflexes : Normal Knee Jerk. Normal Ankle Jerk . Vertebral body tenderness to palpation over L4, L5 Lumbar Facet Loading Test positive Straight Leg Raise: positive at 30 degrees right side/ left side Gaenslen's Test positive Sacral spine : Severe tenderness over the Sacroiliac joint: right side / left side Range of motion: Flexion of the lumbar spine <60 degrees Range of motion: Extension of the lumbar spine <20 degrees Gaenslen's Test positive Ana test: positive right side / left side Assessment and plan: Chronic low back pain secondary to lumbar degenerative disc disease , lumbar spondylosis with facet arthropathy without myelopathy Chronic and current use of high-risk medication (Opioids). The patient was counseled about risk of opioid use, psychological risk associated with opioids and was orally counseled to not overuse , divert or sell medications. Pt is to store medication in a safe location. The patient is counseled against driving while using narcotic medications and also not to use alcohol or any illicit recreational drugs. Patient verbalized understanding that the lack of compliance will result in failure to renew narcotic prescription(s) as well as possible discharge from the clinic Diagnoses, prognosis and treatment options including but not limited to physical therapy, surgical interventions, interventional therapies and medication management including narcotics and adjuvant medication were discussed. All patient questions answered MAPS reviewed and it was appropriate. Urine for UDS collected today 02/19/22. Patient was unable to provide urine at her last visit 12/29/21. Prescription refill for Percocet 10/325#90 with 1 refill, baclofen with 1 refill. I have spent 31 minutes on patient care today. Dr Rubin was available by phone for the evaluation of this patient. The time was used to review the [place] dical records including relevant urine studies and Prescription history (MAPs), review of the available imaging, evaluation and examination of the patient, coordination of care with the medical staff and if applicable referring physicians, as well as creation of the medical record PQRS Measure Charge Sheet PQRS Narrative: Smoking Status Former smoker Narcotic Agreement Date Signed 07/26/21 Hx Alcohol Use (MH) No Home Medications: Ambulatory Orders Ubidecarenone [Co Q-10] 200 mg PO HS 02/24/17 Rivaroxaban [Xarelto] 10 mg PO DAILY 08/27/17 Levothyroxine Sodium [Synthroid] 125 mcg PO QAM 06/27/18 Rosuvastatin Calcium [Crestor] 5 mg PO HS 06/27/18 Losartan Potassium 100 mg PO DAILY 10/31/18 Docusate [Colace] 100 mg PO BID PRN 06/24/19 Vitamin C/Biotin [Hair, Skin and Nails] 1 tab PO DAILY 07/02/19 Denosumab [Prolia] 60 mg SQ Q180D 07/13/19 Diltiazem Cd [Cardizem Cd] 240 mg PO DAILY 07/13/19 Salmeterol Xinafoate [Serevent Diskus] 1 puff INHALATION RT-BID 07/13/19 Sulfamethox-Tmp 800-160Mg [Bactrim DS 800-160 mg] 1 tab PO MOWEFR 02/26/20 Joni/D3/Mag11/Zinc/Door Glass Installer/Jaylon/Bor [Caltrate 600+D Plus Tablet] 1 tab PO DAILY 07/28/20 Levocetirizine Dihydrochloride [Xyzal] 5 mg PO DAILY 01/05/21 Vit C/E/Zn/Coppr/Lutein/Zeaxan [Preservision Areds 2 Softgel] 1 tab PO BID 04/28/21 Cholecalciferol [Vitamin D3 (25 Mcg = 1000 Iu)] 25 mcg PO DAILY 09/07/21 Esomeprazole Magnesium [NexIUM 24Hr] 20 mg PO DAILY 09/07/21 Fluticasone Propionate [Flovent Diskus] 1 puff INHALATION RT-BID 09/07/21 Gabapentin [Neurontin] 600 mg PO HS 09/07/21 Hydrocortisone [Cortef] 10 mg PO W/SUPPER 09/07/21 Hydrocortisone [Cortef] 15 mg PO DAILY 09/07/21 Ipratropium Nebulized [Atrovent Nebulized 0.2 MG/ML] 0.5 mg INHALATION RT-QID PRN 09/07/21 Linaclotide [Linzess] 290 mcg PO DAILY 09/07/21 Magnesium Oxide [Harper] 500 mg PO DAILY 09/07/21 Multivit-Min/Iron/Folic/Lutein [Centrum Silver Women Tablet] 1 tab PO DAILY 09/07/21 Vitamin C Gummies 250mg 250 mg PO BID 09/07/21 Baclofen 10 mg PO BID 30 Days #60 tab 12/25/21 Gabapentin 300 mg PO TID 30 Days #90 cap 12/25/21 oxyCODONE HCL/ACETAMINOPHEN [Percocet 10-325 mg] 1 tab PO Q8HR PRN 30 Days #90 tab 12/25/21 oxyCODONE-APAP 10-325MG [Percocet 10-325 mg] 1 tab PO Q8HR PRN 30 Days #90 tab 12/25/21
[2022-02-19 10:53] VITALS: BP 147/85; PULSE 80; RESP 18; TEMP 98.2
== END ==
LOC: PNWHC3 09:49
PROVIDERS: ATTEND Specialist
DX: G89.29 Other chronic pain (principal); M51.36 Other intervertebral disc degeneration, lumbar region; M47.816 Spondylosis without myelopathy or radiculopathy, lumbar region; Z79.891 Long term (current) use of opiate analgesic; Z87.891 Personal history of nicotine dependence; Z88.0 Allergy status to penicillin; Z88.1 Allergy status to other antibiotic agents; Z91.018 Allergy to other foods
CPT/HCPCS: 80307; G0482; G0463; 99211

== ENCOUNTER → 2022-04-16 | Outpatient (CLI) | payer MEDICARE, BC ==
[2022-04-16 08:50] VITALS: BP 153/75; PULSE 78; RESP 18; TEMP 98
--- NOTE | 2022-04-16 08:52 | P.PAINPG ---
PQRS Measure Charge Sheet Comment: A 71 yr old female wiht at side with a history of severe and chronic low back pain secondary to lumbar degenerative disc diseases and lumbar spondylosis with facet arthropathy presents today for medication refills. Pain level is currently at 7/10 in intensity, constant, sore in character with sharp/ shooting pain radiating towards the LLE. Pain is provoked every morning when accompanied with stiffness. Pain is alleviated with medications ( Percocet 10/325mg #90, Baclofen, Tylenol OTC ), PT aggravated pain, topicals, heat, use of a wheelchair or cane for ambulation, repositioning and rest. Patient is currently on Percocet 10/325#90, baclofen 10mg #60, Neurontin 300mg #90. Patient denies any side effects of the medication(s), denies excessive drowsiness or sleepiness, denies suicidal ideation and reports that the current pain medication is helping to control the pain and improve activities of daily living. Patient denies any motor or sensory deficits. Patient denies any fever or night sweats, denies any change in the bowel movements or urination. Physical Examination: -Constitutional: Cooperative. Not in acute distress . - Neurologic: Cranial nerve II to XII intact. No focal neurological deficits. - Psychatric: Alert & oriented x 3. Matching mood & appropriate affect. Judgment and insight intact. - Musculoskeletal: Cervical spine: Muscle bulk/ tone/ strength in the bilateral upper extremities normal Vertebral body tenderness to palpation over Spurling test positive Distraction test positive Facet loading test positive Thoracic spine Muscle bulk / tone/ strength in the bilateral paraspinal muscles normal Vertebral body tender to palpation over Facet loading test positive Lumbar spine: Motor bulk/ tone/ strength lower extremities , thigh and legs : 5/5 Deep tendon reflexes : Normal Knee Jerk. Normal Ankle Jerk . Vertebral body tenderness to palpation over L3, L4, L5 Lumbar Facet Loading Test positive Straight Leg Raise: positive at 30 degrees right side/ left side Gaenslen's Test positive Sacral spine : Severe tenderness over the Sacroiliac joint: right side / left side Range of motion: Flexion of the lumbar spine <60 degrees Range of motion: Extension of the lumbar spine <20 degrees Gaenslen's Test positive Anuel's Test positive Ana test: positive right side / left side Thigh Thrust Test Sacral Thrust Test Assessment and plan: Chronic low back pain secondary to lumbar degenerative disc disease , lumbar spondylosis with facet arthropathy without myelopathy Chronic and current use of high-risk medication (Opioids). The patient was counseled about risk of opioid use, psychological risk associated with opioids and was orally counseled to not overuse , divert or sell medications. Pt is to store medication in a safe location. The patient is counseled against driving while using narcotic medications and also not to use alcohol or any illicit recreational drugs. Patient verbalized understanding that the lack of compliance will result in failure to renew narcotic prescription(s) as well as possible discharge from the clinic Diagnoses, prognosis and treatment options including but not limited to physical therapy, surgical interventions, interventional therapies and medication management including narcotics and adjuvant medication were discussed. All patient questions answered MAPS reviewed and it was appropriate. UDS from 02/19/22 reviewed and negative for Neurontin. Pt states she takes Neurontin daily. Discussed mechanisms of action and urged compliance. Will refill. Prescription refill for Percocet 10/325mg #90, Neurontin 300mg #90, Baclofen 10mg #60 w 1 refill I have spent less than 30 minutes on patient care today. Dr Rubin was available by phone for the evaluation of this patient. The time was used to review the medical records including relevant urine studies and Prescription history (MAPs), review of the available imaging, evaluation and examination of the patient, coordination of care with the medical staff and if applicable referring physicians, as well as creation of the medical record PQRS Narrative: Smoking Status Former smoker Narcotic Agreement Date Signed 07/26/21 Hx Alcohol Use (MH) No Home Medications: Ambulatory Orders Ubidecarenone [Co Q-10] 200 mg PO HS 02/24/17 Rivaroxaban [Xarelto] 10 mg PO DAILY 08/27/17 Levothyroxine Sodium [Synthroid] 125 mcg PO QAM 06/27/18 Rosuvastatin Calcium [Crestor] 5 mg PO HS 06/27/18 Losartan Potassium 100 mg PO DAILY 10/31/18 Docusate [Colace] 100 mg PO BID PRN 06/24/19 Vitamin C/Biotin [Hair, Skin and Nails] 1 tab PO DAILY 07/02/19 Denosumab [Prolia] 60 mg SQ Q180D 07/13/19 Diltiazem Cd [Cardizem Cd] 240 mg PO DAILY 07/13/19 Salmeterol Xinafoate [Serevent Diskus] 1 puff INHALATION RT-BID 07/13/19 Sulfamethox-Tmp 800-160Mg [Bactrim DS 800-160 mg] 1 tab PO MOWEFR 02/26/20 Joni/D3/Mag11/Zinc/Electrician [employer]/Jaylon/Bor [Caltrate 600+D Plus Tablet] 1 tab PO DAILY 07/28/20 Levocetirizine Dihydrochloride [Xyzal] 5 mg PO DAILY 01/05/21 Vit C/E/Zn/Coppr/Lutein/Zeaxan [Preservision Areds 2 Softgel] 1 tab PO BID 04/28/21 Cholecalciferol [Vitamin D3 (25 Mcg = 1000 Iu)] 25 mcg PO DAILY 09/07/21 Esomeprazole Magnesium [NexIUM 24Hr] 20 mg PO DAILY 09/07/21 Fluticasone Propionate [Flovent Diskus] 1 puff INHALATION RT-BID 09/07/21 Gabapentin [Neurontin] 600 mg PO HS 09/07/21 Hydrocortisone [Cortef] 10 mg PO W/SUPPER 09/07/21 Hydrocortisone [Cortef] 15 mg PO DAILY 09/07/21 Ipratropium Nebulized [Atrovent Nebulized 0.2 MG/ML] 0.5 mg INHALATION RT-QID PRN 09/07/21 Linaclotide [Linzess] 290 mcg PO DAILY 09/07/21 Magnesium Oxide [Harper] 500 mg PO DAILY 09/07/21 Multivit-Min/Iron/Folic/Lutein [Centrum Silver Women Tablet] 1 tab PO DAILY 09/07/21 Vitamin C Gummies 250mg 250 mg PO BID 09/07/21 Gabapentin 300 mg PO TID 30 Days #90 cap 12/25/21 Baclofen 10 mg PO BID 30 Days #60 tab 02/19/22 oxyCODONE HCL/ACETAMINOPHEN [Percocet 10-325 mg] 1 tab PO Q8HR PRN 30 Days #90 tab 02/19/22 oxyCODONE-APAP 10-325MG [Percocet 10-325 mg] 1 tab PO Q8HR PRN 30 Days #90 tab 02/19/22 Controlled Substance Measures - Controlled Substance Measures Is patient prescribed a controlled substance at discharge?: Yes When asked, does pt state using other controlled substances?: No If Rx opioid, was Start Talking consent form obtained?: Yes If opioid is for acute pain is fill amount 7 days or less?: Yes Was information provided regarding opioid addiction?: Yes
== END ==
LOC: PNWHC3 08:15
PROVIDERS: ATTEND Specialist
DX: M51.36 Other intervertebral disc degeneration, lumbar region (principal); M47.816 Spondylosis without myelopathy or radiculopathy, lumbar region; G89.29 Other chronic pain; Z79.891 Long term (current) use of opiate analgesic; Z87.891 Personal history of nicotine dependence; Z88.1 Allergy status to other antibiotic agents; Z88.0 Allergy status to penicillin; Z91.018 Allergy to other foods; Z88.8 Allergy status to other drugs, medicaments and biological substances
CPT/HCPCS: 99211

== ENCOUNTER → 2022-06-18 | Outpatient (CLI) | payer MEDICARE, BC ==
[2022-06-18 12:14] VITALS: BP 127/74; PULSE 74; RESP 18; TEMP 98.5
--- NOTE | 2022-06-18 16:20 | P.PAINPG ---
Objective - Vital Signs Vital signs: Intake & Output 06/17/22 06/18/22 06/18/22 18:59 06:59 18:59 Weight 110.677 kg PQRS Measure Charge Sheet Comment: A 71 yr old female w at side with a history of severe and chronic low back pain secondary to lumbar degenerative disc diseases and lumbar spondylosis with facet arthropathy without myelopathy presents today for medication refills. Pain level is currently at 7/10 in intensity, intermittent, localized in the lower lumbar spine, stabbing/ sharp in character w shooting towards the BLEs. Pain is provoked by walking/ standing. Pain is alleviated with PT x 6 wks but doesn't know when, medications, heat, ice, home stretching regimen, topicals, use of a wheelchair for ambulation, repositioning and rest. Interventional pain procedures completed include BL SI injections, BL L3-L5 RFA (2017, 2018), LESIs Patient is currently on Percocet, Baclofen, Neurontin Patient denies any side effects of the medication(s), denies excessive drowsiness or sleepiness, denies suicidal ideation and reports that the current pain medication is helping to control the pain and improve activities of daily living. Patient denies any motor or sensory deficits. Patient denies any fever or night sweats, denies any change in the bowel movements or urination. Physical Examination: -Constitutional: Cooperative. Not in acute distress . - Neurologic: Cranial nerve II to XII intact. No focal neurological deficits. - Psychatric: Alert & oriented x 3. Matching mood & appropriate affect. Judgment and insight intact. - Musculoskeletal: Cervical spine: Muscle bulk/ tone/ strength in the bilateral upper extremities normal Vertebral body tenderness to palpation over Spurling test positive Distraction test positive Facet loading test positive Thoracic spine Muscle bulk / tone/ strength in the bilateral paraspinal muscles normal Vertebral body tender to palpation over Facet loading test positive Lumbar spine: Motor bulk/ tone/ strength lower extremities , thigh and legs : 5/5 Deep tendon reflexes : Normal Knee Jerk. Normal Ankle Jerk . Vertebral body tenderness to palpation over L3, L4, L5 Lumbar Facet Loading Test positive Straight Leg Raise: positive at 30 degrees right side/ left side Gaenslen's Test positive Sacral spine : Severe tenderness over the Sacroiliac joint: right side / left side Range of motion: Flexion of the lumbar spine <60 degrees Range of motion: Extension of the lumbar spine <20 degrees Gaenslen's Test positive Anuel's Test positive Ana test: positive right side / left side Thigh Thrust Test Sacral Thrust Test Assessment and plan: Chronic low back pain secondary to lumbar degenerative disc disease , lumbar spondylosis with facet arthropathy without myelopathy Chronic and current use of high-risk medication (Opioids). The patient was counseled about risk of opioid use, psychological risk associated with opioids and was orally counseled to not overuse , divert or sell medications. Pt is to store medication in a safe location. The patient is counseled against driving while using narcotic medications and also not to use alcohol or any illicit recreational drugs. Patient verbalized understanding that the lack of compliance will result in failure to renew narcotic prescription(s) as well as possible discharge from the clinic Diagnoses, prognosis and treatment options including but not limited to physical therapy, surgical interventions, interventional therapies and medication management including narcotics and adjuvant medication were discussed. All patient questions answered MAPS reviewed and it was appropriate. Narcotic/ Opiate agrement renewed today 06/18/22 Blood toxicology test for routine drug screening 06/18/22 Prescription refill for Percocet 10/325 #90, Neurontin 300mg #90, Baclofen w 1 RF I have spent less than 30 minutes on patient care today. Dr Rubin was available by phone for the evaluation of this patient. The time was used to review the medical records including relevant urine studies and Prescription history (MAPs), review of the available imaging, evaluation and examination of the patient, coordination of care with the medical staff and if applicable referring physicians, as well as creation of the medical record PQRS Narrative: Smoking Status Former smoker Narcotic Agreement Date Signed 07/26/21 Hx Alcohol Use (MH) No Home Medications: Ambulatory Orders Ubidecarenone [Co Q-10] 200 mg PO HS 02/24/17 Rivaroxaban [Xarelto] 10 mg PO DAILY 08/27/17 Levothyroxine Sodium [Synthroid] 125 mcg PO QAM 06/27/18 Rosuvastatin Calcium [Crestor] 5 mg PO HS 06/27/18 Losartan Potassium 100 mg PO DAILY 10/31/18 Docusate [Colace] 100 mg PO BID PRN 06/24/19 Vitamin C/Biotin [Hair, Skin and Nails] 1 tab PO DAILY 07/02/19 Denosumab [Prolia] 60 mg SQ Q180D 07/13/19 Diltiazem Cd [Cardizem Cd] 240 mg PO DAILY 07/13/19 Salmeterol Xinafoate [Serevent Diskus] 1 puff INHALATION RT-BID 07/13/19 Sulfamethox-Tmp 800-160Mg [Bactrim DS 800-160 mg] 1 tab PO MOWEFR 02/26/20 Joni/D3/Mag11/Zinc/Library Clerk Talking Books/Jaylon/Bor [Caltrate 600+D Plus Tablet] 1 tab PO DAILY 07/28/20 Levocetirizine Dihydrochloride [Xyzal] 5 mg PO DAILY 01/05/21 Vit C/E/Zn/Coppr/Lutein/Zeaxan [Preservision Areds 2 Softgel] 1 tab PO BID 04/28/21 Cholecalciferol [Vitamin D3 (25 Mcg = 1000 Iu)] 25 mcg PO DAILY 09/07/21 Esomeprazole Magnesium [NexIUM 24Hr] 20 mg PO DAILY 09/07/21 Fluticasone Propionate [Flovent Diskus] 1 puff INHALATION RT-BID 09/07/21 Gabapentin [Neurontin] 600 mg PO HS 09/07/21 Hydrocortisone [Cortef] 10 mg PO W/SUPPER 09/07/21 Hydrocortisone [Cortef] 15 mg PO DAILY 09/07/21 Ipratropium Nebulized [Atrovent Nebulized 0.2 MG/ML] 0.5 mg INHALATION RT-QID PRN 09/07/21 Linaclotide [Linzess] 290 mcg PO DAILY 09/07/21 Magnesium Oxide [Harper] 500 mg PO DAILY 09/07/21 Multivit-Min/Iron/Folic/Lutein [Centrum Silver Women Tablet] 1 tab PO DAILY 09/07/21 Vitamin C Gummies 250mg 250 mg PO BID 09/07/21 Baclofen 10 mg PO BID 30 Days #60 tab 04/16/22 Gabapentin 300 mg PO TID 30 Days #90 cap 04/16/22 oxyCODONE HCL/ACETAMINOPHEN [Percocet 10-325 mg] 1 tab PO Q8HR PRN 30 Days #90 tab 04/16/22 oxyCODONE-APAP 10-325MG [Percocet 10-325 mg] 1 tab PO Q8HR PRN 30 Days #90 tab 04/16/22 Controlled Substance Measures - Controlled Substance Measures Is patient prescribed a controlled substance at discharge?: Yes When asked, does pt state using other controlled substances?: No If prescribed controlled substance>3 days was MAPS reviewed?: Yes If Rx opioid, was Start Talking consent form obtained?: Yes Was information provided regarding opioid addiction?: Yes
== END ==
LOC: PNWHC3 11:14
PROVIDERS: ATTEND Specialist
DX: M47.816 Spondylosis without myelopathy or radiculopathy, lumbar region (principal); M51.36 Other intervertebral disc degeneration, lumbar region; G89.29 Other chronic pain; Z02.83 Encounter for blood-alcohol and blood-drug test; Z79.891 Long term (current) use of opiate analgesic; Z87.891 Personal history of nicotine dependence; Z88.1 Allergy status to other antibiotic agents; Z88.0 Allergy status to penicillin; Z91.018 Allergy to other foods
CPT/HCPCS: 99211; 99212

== ENCOUNTER → 2022-06-18 | Outpatient (CLI) | payer MEDICARE, BC ==
[2022-06-19 12:14] LABS: Serum Amphetamine Negative; Serum Barbiturates Negative; Serum Benzodiazepine Negative; Serum Cocaine Negative; Serum Methadone Negative; Serum Opiates Negative; Serum Phencyclidine Negative; Serum Propoxyphene Negative; Serum THC (Cannabis) Negative
== END | disposition home or self-care (01) ==
LOC: LABWHC1 12:15
PROVIDERS: ATTEND Physician Assistant Medical
DX: Z02.83 Encounter for blood-alcohol and blood-drug test (principal)
CPT/HCPCS: 36415; 80307

== ENCOUNTER 2022-07-12 16:21 | Emergency (ER) | payer MEDICARE, BC ==
[2022-07-12 16:54] VITALS: BP 154/83; PULSE 96; RESP 16; TEMP 98.1
[2022-07-12] MEDS ORDERED: KETOROLAC 15 MG/ML 1 ML VIAL IVP STA (20:24)
[2022-07-12 21:24] LABS: Partial Thromboplastin Time 23.4 sec (22.0-30.0); Prothrombin Time 11.2 sec (9.0-12.0)
--- NOTE | 2022-07-12 22:02 | ED ---
General Adult HPI - General Chief complaint: Skin/Abscess/Foreign Body Stated complaint: L breast issue Time Seen by Provider: 07/12/22 20:11 Source: patient Mode of arrival: ambulatory Limitations: no limitations - History of Present Illness Initial comments: Dictation was produced using [employer] dictation software. please excuse any grammatical, word or spelling errors. Chief Complaint: 72-year-old female presents to the emergency Department with ecchymosis of the right breast History of Present Illness: 72-year-old female presents to the emergency Department with ecchymosis of the right breast. Patient is on anticoagulation f or DVT prophylaxis. Patient suffered PE in 2016. Treated now she is continuing to take it in order to prevent future DVTs. Patient noticed some bruising to her right breast 12 days ago. Denies any trauma to the area. No pain. Bruising is localized to the right breast and a gravity dependent manner. No palpatory tenderness to the right breast right thoracic area. No nipple discharge. Palpation to the right breast shows no induration or mass. No concern for hematoma of the right breast. Patient not complaining of any pain with movement of the right upper extremity. The ROS documented in this emergency department record has been reviewed and confirmed by me. Those systems with pertinent positive or negative responses have been documented in the HPI. All other systems are other negative and/or noncontributory. PHYSICAL EXAM: General Impression: Alert and oriented x3, not in acute distress HEENT: Normocephalic atraumatic, extra-ocular movements intact, pupils equal and reactive to light bilaterally, mucous membranes moist. Cardiovascular: Heart regular rate and rhythm Chest: Able to complete full sentences, no retractions, no tachypnea Abdomen: abdomen soft, non-tender, non-distended, no organomegaly Musculoskeletal: Pulses present and equal in all extremities, no peripheral edema Motor: no focal deficits noted Neurological: CN II-XII grossly intact, no focal motor or sensory deficits noted Skin: Intact with no visualized rashes Psych: Normal affect and mood Right breast: There is soft ecchymoses from the lateral thoracic area extending down to the breast in a gravity dependent manner. There is no palpable hematoma or mass. No nipple discharge. No induration or erythema, not warm to touch. No crepitus ED course: 72-year-old female presents to the emergency Department with ecchymoses of the right breast this is likely secondary to anticoagulation use. No concern for ecchymoses secondary to muscle strain or muscle tear. Given that she has no pain or history of trauma. Signs upon arrival within acceptable limits. Dilation unremarkable. Hemoglobin normal. Platelet count normal. Coag panel is negative. Patient be discharged. 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 At this point no clear indication to stop and evaluation medications. - Related Data Home Medications Medication Instructions Recorded Confirmed Ubidecarenone [Co Q-10] 200 mg PO HS 02/24/17 06/18/22 Rivaroxaban [Xarelto] 10 mg PO DAILY 08/27/17 06/18/22 Levothyroxine Sodium [Synthroid] 125 mcg PO QAM 06/27/18 06/18/22 Rosuvastatin Calcium [Crestor] 5 mg PO HS 06/27/18 06/18/22 Losartan Potassium 100 mg PO DAILY 10/31/18 06/18/22 Docusate [Colace] 100 mg PO BID PRN 06/24/19 06/18/22 Vitamin C/Biotin [Hair, Skin and 1 tab PO DAILY 07/02/19 06/18/22 Nails] Denosumab [Prolia] 60 mg SQ Q180D 07/13/19 06/18/22 Diltiazem Cd [Cardizem Cd] 240 mg PO DAILY 07/13/19 06/18/22 Salmeterol Xinafoate [Serevent 1 puff INHALATION RT-BID 07/13/19 06/18/22 Diskus] Sulfamethox-Tmp 800-160Mg [Bactrim 1 tab PO MOWEFR 02/26/20 06/18/22 DS 800-160 mg] Joni/D3/Mag11/Zinc/Nascar Racer/Jaylon/Bor 1 tab PO DAILY 07/28/20 06/18/22 [Caltrate 600+D Plus Tablet] Levocetirizine Dihydrochloride 5 mg PO DAILY 01/05/21 06/18/22 [Xyzal] Vit C/E/Zn/Coppr/Lutein/Zeaxan 1 tab PO BID 04/28/21 06/18/22 [Preservision Areds 2 Softgel] Cholecalciferol [Vitamin D3 (25 25 mcg PO DAILY 09/07/21 06/18/22 Mcg = 1000 Iu)] Esomeprazole Magnesium [NexIUM 20 mg PO DAILY 09/07/21 06/18/22 24Hr] Fluticasone Propionate [Flovent 1 puff INHALATION RT-BID 09/07/21 06/18/22 Diskus] Gabapentin [Neurontin] 600 mg PO HS 09/07/21 06/18/22 Hydrocortisone [Cortef] 10 mg PO W/SUPPER 09/07/21 06/18/22 Hydrocortisone [Cortef] 15 mg PO DAILY 09/07/21 06/18/22 Ipratropium Nebulized [Atrovent 0.5 mg INHALATION RT-QID PRN 09/07/21 06/18/22 Nebulized 0.2 MG/ML] Linaclotide [Linzess] 290 mcg PO DAILY 09/07/21 06/18/22 Magnesium Oxide [Harper] 500 mg PO DAILY 09/07/21 06/18/22 Multivit-Min/Iron/Folic/Lutein 1 tab PO DAILY 09/07/21 06/18/22 [Centrum Silver Women Tablet] Vitamin C Gummies 250mg 250 mg PO BID 09/07/21 06/18/22 Previous Rx's Medication Instructions Recorded Baclofen 10 mg PO BID 30 Days #60 tab 06/18/22 Gabapentin 300 mg PO TID 30 Days #90 cap 06/18/22 oxyCODONE HCL/ACETAMINOPHEN 1 tab PO Q8HR PRN 30 Days #90 tab 06/18/22 [Percocet 10-325 mg] oxyCODONE-APAP 10-325MG [Percocet 1 tab PO Q8HR PRN 30 Days #90 tab 06/18/22 10-325 mg] Allergies Allergy/AdvReac Type Severity Reaction Status Date / Time cefuroxime axetil Allergy Dyspnea Verified 06/18/22 11:32 [From Ceftin] moxifloxacin HCl Allergy Dyspnea Verified 06/18/22 11:32 [From Avelox] Penicillins Allergy Dyspnea Verified 06/18/22 11:32 rofecoxib [From Vioxx] Allergy Dyspnea Verified 06/18/22 11:32 blackberry Allergy Rash/Hives Uncoded 06/18/22 11:32 Review of Systems ROS Statement: Those systems with pertinent positive or pertinent negative responses have been documented in the HPI. ROS Other: All systems not noted in ROS Statement are negative. 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 R ankle plate/screws, L wrist carpal tunnel release, multiple bronchoscopies, bronchial thermoplasty x3, EGDs, colonoscopies/polypectomy, deviated septal surgery, [facility] pain clinic procedures, PICC/later removed, bilateral cataract removals/lens implants. Past Anesthesia/Blood Transfusion Reactions: Family History of Problems w/ Anesthesia, Postoperative Nausea & Vomiting (PONV) Additional Past Anesthesia/Blood Transfusion Reaction / Comment(s): Pt has never received blood. Occ nausea. DAUGHTER PONV Past Psychological History: No Psychological Hx Reported Smoking Status: Former smoker - Past Family History Father Family Medical History: Cancer Additional Family Medical History / Comment(s): Colon cancer. Mother Family Medical History: Congestive Heart Failure (CHF), COPD Additional Family Medical History / Comment(s): Mother lived to be 80 yrs old. Daughter(s) Family Medical History: Deep Vein Thrombosis (DVT) General Exam Limitations: no limitations Course Vital Signs 07/12/22 16:49 Temperature 98.1 F Pulse Rate 96 Respiratory 16 Rate Blood Pressure 154/83 O2 Sat by Pulse 95 Oximetry Medical Decision Making - Lab Data Result diagrams: 07/12/22 21:10 07/12/22 21:10 Lab Results 07/12/22 07/12/22 07/12/22 Range/Units 21:10 21:10 21:10 WBC 10.5 (3.8-10.6) k/uL RBC 4.37 (3.80-5.40) m/uL Hgb 13.3 (11.4-16.0) gm/dL Hct 42.1 (34.0-46.0) % MCV 96.4 (80.0-100.0) fL MCH 30.4 (25.0-35.0) pg MCHC 31.5 (31.0-37.0) g/dL RDW 12.9 (11.5-15.5) % Plt Count 186 (150-450) k/uL MPV 9.3 Neutrophils % 76 % Lymphocytes % 13 % Monocytes % 7 % Eosinophils % 1 % Basophils % 0 % Neutrophils # 8.0 H (1.3-7.7) k/uL Lymphocytes # 1.4 (1.0-4.8) k/uL Monocytes # 0.7 (0-1.0) k/uL Eosinophils # 0.1 (0-0.7) k/uL Basophils # 0.0 (0-0.2) k/uL Hypochromasia Moderate PT 11.2 (9.0-12.0) sec INR 1.0 (<1.2) APTT 23.4 (22.0-30.0) sec Sodium 138 (137-145) mmol/L Potassium 5.5 H (3.5-5.1) mmol/L Chloride 103 (98-107) mmol/L Carbon Dioxide 27 (22-30) mmol/L Anion Gap 8 mmol/L BUN 26 H (7-17) mg/dL Creatinine 0.77 (0.52-1.04) mg/dL Est GFR (CKD-EPI)AfAm 89 (>60 ml/min/1.73 sqM) Est GFR (CKD-EPI)NonAf 77 (>60 ml/min/1.73 sqM) Glucose 93 (74-99) mg/dL Calcium 9.0 (8.4-10.2) mg/dL Disposition Clinical Impression: Bruise of breast Disposition: HOME SELF-CARE Condition: Good Instructions (If sedation given, give patient instructions): Ecchymosis (ED) Is patient prescribed a controlled substance at d/c from ED?: No Referrals: Laurent Gramajo DO [Primary Care Provider] - 1-2 days Geovanny Winters MD [STAFF PHYSICIAN] - 1-2 days Time of Disposition: 22:39
[2022-07-12 22:23] LABS: Basophils % (A) 0 %; Eosinophils # (A) 0.1 k/uL (0-0.7); Eosinophils % (A) 1 %; HCT 42.1 % (34.0-46.0); HGB 13.3 gm/dL (11.4-16.0); Hypochromasia Moderate; Lymphocytes # (A) 1.4 k/uL (1.0-4.8); Lymphocytes % (A) 13 %; MCH 30.4 pg (25.0-35.0); MCHC 31.5 g/dL (31.0-37.0); MCV 96.4 fL (80.0-100.0); Mean Platelet Volume 9.3; Monocytes # (A) 0.7 k/uL (0-1.0); Monocytes % (A) 7 %; Neutrophils % (A) 76 %; Platelet Count 186 k/uL (150-450); RBC 4.37 m/uL (3.80-5.40); RDW 12.9 % (11.5-15.5); WBC 10.5 k/uL (3.8-10.6)
[2022-07-12 22:25] LABS: Potassium 5.5 mmol/L (3.5-5.1)
--- NOTE | 2022-07-13 11:58 | USB ---
Reason for Exam: Clinical finding. Patient History: Menarche at age 11. First Full-Term at age 30. Late child-bearing (after 30). Postmenopausal. Paternal aunt had breast cancer. Risk Values: Kavya 5 year model risk: 2.7%. NCI Lifetime model risk: 6.9%. Prior Study Comparison: 07/30/2019 Bilateral Screening Mammogram, [facility]. 11/23/2020 Bilateral Screening Mammogram, [facility]. 01/30/2022 Bilateral Screening Mammogram, [facility]. Findings: The whole breast of the right breast was scanned. No solid or cystic mass identified in the area of concern in the right breast. Negative right breast sonogram. Category 1 negative. Overall Assessment: Negative, BI-RAD 1 Management: Return to routine follow-up (next follow-up: 01/30/2023 for Screening Mammogram) Electronically signed and approved by: Suraj Urena M.D.
== END 2022-07-12 23:19 | disposition home or self-care (01) ==
LOC: EC 16:21
DX: S20.01XA Contusion of right breast, initial encounter (principal); J44.9 Chronic obstructive pulmonary disease, unspecified; I10 Essential (primary) hypertension; Z86.711 Personal history of pulmonary embolism; E07.9 Disorder of thyroid, unspecified; Z88.0 Allergy status to penicillin; Z88.6 Allergy status to analgesic agent; Z88.1 Allergy status to other antibiotic agents; Z91.018 Allergy to other foods; Z79.51 Long term (current) use of inhaled steroids; Z79.01 Long term (current) use of anticoagulants; Z79.890 Hormone replacement therapy; Z87.891 Personal history of nicotine dependence; Z79.899 Other long term (current) drug therapy; X58.XXXA Exposure to other specified factors, initial encounter
CPT/HCPCS: 36415; 80048; 85025; 85610; 85730; 76642; 99284; 96374; J1885

== ENCOUNTER → 2022-08-13 | Outpatient (CLI) | payer MEDICARE, BC ==
[2022-08-13 10:38] VITALS: BP 128/70; PULSE 73; RESP 18
--- NOTE | 2022-08-13 15:08 | P.PAINPG ---
PQRS Measure Charge Sheet Comment: A 72 yr old wheelchair bound female w at side with a history of severe and chronic low back pain secondary to lumbar degenerative disc diseases and lumbar spondylosis with facet arthropathy without myelopathy presents today for medication refills. She tried to cut back on percocet by cutting pills in quarters but pain was not manageable at the 7.5 mg dose. Pain level is currently at 7/10 in intensity, constant, localized in the mid to lower lumbar spine, sharp in character w shooting towards the BL glues and LLE. Pain is provoked by bending and standing/ walking for periods of 10 min or more. Pain is alleviated with PT years ago, medications, heat, ice, topicals, repositioning and rest. Interventional pain procedures completed include L RFA L3-L5 in 2019, LESI in 2019 Patient is currently on Percocet, Baclofen, Neurontin Patient denies any side effects of the medication(s), denies excessive drowsiness or sleepiness, denies suicidal ideation and reports that the current pain medication is helping to control the pain and improve activities of daily living. Patient denies any motor or sensory deficits. Patient denies any fever or night sweats, denies any change in the bowel movements or urination. Physical Examination: -Constitutional: Cooperative. Not in acute distress . - Neurologic: Cranial nerve II to XII intact. No focal neurological deficits. - Psychatric: Alert & oriented x 3. Matching mood & appropriate affect. Judgment and insight intact. - Musculoskeletal: Cervical spine: Muscle bulk/ tone/ strength in the bilateral upper extremities normal Vertebral body tenderness to palpation over Spurling test positive Distraction test positive Facet loading test positive Thoracic spine Muscle bulk / tone/ strength in the bilateral paraspinal muscles normal Vertebral body tender to palpation over Facet loading test positive Lumbar spine: Motor bulk/ tone/ strength lower extremities , thigh and legs : 5/5 Deep tendon reflexes : Normal Knee Jerk. Normal Ankle Jerk . Vertebral body tenderness to palpation over Lumbar Facet Loading Test positive Straight Leg Raise: positive at 30 degrees right side/ left side Gaenslen's Test positive Sacral spine : Severe tenderness over the Sacroiliac joint: right side / left side Range of motion: Flexion of the lumbar spine <60 degrees Range of motion: Extension of the lumbar spine <20 degrees Gaenslen's Test positive Anuel's Test positive Ana test: positive right side / left side Thigh Thrust Test Sacral Thrust Test Assessment and plan: Chronic low back pain secondary to lumbar degenerative disc disease , lumbar spondylosis with facet arthropathy without myelopathy Chronic and current use of high-risk medication (Opioids). The patient was counseled about risk of opioid use, psychological risk associated with opioids and was orally counseled to not overuse , divert or sell medications. Pt is to store medication in a safe location. The patient is counseled against driving while using narcotic medications and also not to use alcohol or any illicit recreational drugs. Patient verbalized understanding that the lack of compliance will result in failure to renew narcotic prescription(s) as well as possible discharge from the clinic Diagnoses, prognosis and treatment options including but not limited to physical therapy, surgical interventions, interventional therapies and medication management including narcotics and adjuvant medication were discussed. All patient questions answered MAPS reviewed and it was appropriate. Blood tox screen reviewed from 06/18/22 Prescription refill for Percocet 10/325mg #90, Neurontin 300mg #90, Baclofen #60 w 1 RF I have spent less than 30 minutes on patient care today. Dr Rubin was available by phone for the evaluation of this patient. The time was used to review the medical records including relevant urine studies and Prescription history (MAPs), review of the available imaging, evaluation and examination of the patient, coordination of care with the medical staff and if applicable referring physicians, as well as creation of the medical record - Pain Location Bilateral Lower Back Non-Pharmacological Interventions: Heat, Ice, Inactivity, Physical Therapy, Sitting Pharmacological Interventions: Block, Epidural, Medication, Scheduled Medication, Topical Medication PQRS Narrative: Smoking Status Former smoker Narcotic Agreement Date Signed 06/18/22 Hx Alcohol Use (MH) No Home Medications: Ambulatory Orders Ubidecarenone [Co Q-10] 200 mg PO HS 02/24/17 Rivaroxaban [Xarelto] 10 mg PO DAILY 08/27/17 Levothyroxine Sodium [Synthroid] 125 mcg PO QAM 06/27/18 Rosuvastatin Calcium [Crestor] 5 mg PO HS 06/27/18 Losartan Potassium 100 mg PO DAILY 10/31/18 Docusate [Colace] 100 mg PO BID PRN 06/24/19 Vitamin C/Biotin [Hair, Skin and Nails] 1 tab PO DAILY 07/02/19 Denosumab [Prolia] 60 mg SQ Q180D 07/13/19 Diltiazem Cd [Cardizem Cd] 240 mg PO DAILY 07/13/19 Salmeterol Xinafoate [Serevent Diskus] 1 puff INHALATION RT-BID 07/13/19 Sulfamethox-Tmp 800-160Mg [Bactrim DS 800-160 mg] 1 tab PO MOWEFR 02/26/20 Joni/D3/Mag11/Zinc/Boiler Engineer/Jaylon/Bor [Caltrate 600+D Plus Tablet] 1 tab PO DAILY 07/28/20 Levocetirizine Dihydrochloride [Xyzal] 5 mg PO DAILY 01/05/21 Vit C/E/Zn/Coppr/Lutein/Zeaxan [Preservision Areds 2 Softgel] 1 tab PO BID 04/28/21 Cholecalciferol [Vitamin D3 (25 Mcg = 1000 Iu)] 25 mcg PO DAILY 09/07/21 Esomeprazole Magnesium [NexIUM 24Hr] 20 mg PO DAILY 09/07/21 Fluticasone Propionate [Flovent Diskus] 1 puff INHALATION RT-BID 09/07/21 Gabapentin [Neurontin] 600 mg PO HS 09/07/21 Hydrocortisone [Cortef] 10 mg PO W/SUPPER 09/07/21 Hydrocortisone [Cortef] 15 mg PO DAILY 09/07/21 Ipratropium Nebulized [Atrovent Nebulized 0.2 MG/ML] 0.5 mg INHALATION RT-QID PRN 09/07/21 Linaclotide [Linzess] 290 mcg PO DAILY 09/07/21 Magnesium Oxide [Harper] 500 mg PO DAILY 09/07/21 Multivit-Min/Iron/Folic/Lutein [Centrum Silver Women Tablet] 1 tab PO DAILY Vitamin C Gummies 250mg 250 mg PO BID 09/07/21 Baclofen 10 mg PO BID 30 Days #60 tab 08/13/22 Gabapentin 300 mg PO TID 30 Days #90 cap 08/13/22 oxyCODONE HCL/ACETAMINOPHEN [Percocet 10-325 mg] 1 tab PO Q8HR PRN 30 Days #90 tab 08/13/22 oxyCODONE-APAP 10-325MG [Percocet 10-325 mg] 1 tab PO Q8HR PRN 30 Days #90 tab 11/07/22 Controlled Substance Measures - Controlled Substance Measures Is patient prescribed a controlled substance at discharge?: Yes When asked, does pt state using other controlled substances?: Yes If prescribed controlled substance>3 days was MAPS reviewed?: Yes If Rx opioid, was Start Talking consent form obtained?: Yes Was information provided regarding opioid addiction?: Yes
== END ==
LOC: PNWHC3 07:48
PROVIDERS: ATTEND Specialist
DX: M47.816 Spondylosis without myelopathy or radiculopathy, lumbar region (principal); M51.36 Other intervertebral disc degeneration, lumbar region; G89.29 Other chronic pain; Z79.891 Long term (current) use of opiate analgesic; Z87.891 Personal history of nicotine dependence; Z88.1 Allergy status to other antibiotic agents; Z88.0 Allergy status to penicillin; Z91.018 Allergy to other foods
CPT/HCPCS: 99211

== ENCOUNTER → 2022-10-10 | Outpatient (CLI) | payer MEDICARE, BC ==
[2022-10-10 10:49] VITALS: BP 129/83; PULSE 76; RESP 16; TEMP 98.4
--- NOTE | 2022-10-10 15:33 | P.PAINPG ---
Objective - Vital Signs Vital signs: Intake & Output 10/09/22 10/10/22 10/10/22 18:59 06:59 18:59 Weight 109.316 kg PQRS Measure Charge Sheet History and Exam Findings: All other causes of pain ruled out Comment: A 72 yr old female w at side with a history of severe and chronic low back pain secondary to lumbar DDD and spondylosis with facet arthropathy without myelopathy presents today for medication refills. Pain level is currently at 5 /10 in intensity, constant, localized in the mid to lower lumbar spine, sharp/ shooting towards the buttocks and thighs. Pain is provoked by PT. She was carried out of a PT office due to increased pain w activity. Pain is also provoked by walking/ standing for periods of 20 min or bending. Pain is alleviated with medications, topicals, use of a wheelchair/ cane for ambulation, heat, ice, sitting and rest. Interventional pain procedures completed include SI injections Patient is currently on Percocet 10/325mg #90, Neurontin 300mg #90, Baclofen Patient denies any side effects of the medication(s), denies excessive drowsiness or sleepiness, denies suicidal ideation and reports that the current pain medication is helping to control the pain and improve activities of daily living. Patient denies any motor or sensory deficits. Patient denies any fever or night sweats, denies any change in the bowel movements or urination. Physical Examination: -Constitutional: Cooperative. Not in acute distress . - Neurologic: Cranial nerve II to XII intact. No focal neurological deficits. - Psychatric: Alert & oriented x 3. Matching mood & appropriate affect. Judgment and insight intact. - Musculoskeletal: Cervical spine: Muscle bulk/ tone/ strength in the bilateral upper extremities normal Vertebral body tenderness to palpation over Spurling test positive Distraction test positive Facet loading test positive Thoracic spine Muscle bulk / tone/ strength in the bilateral paraspinal muscles normal Vertebral body tender to palpation over Facet loading test positive Lumbar spine: Motor bulk/ tone/ strength lower extremities , thigh and legs : 5/5 Deep tendon reflexes : Normal Knee Jerk. Normal Ankle Jerk . Vertebral body tenderness to palpation over L3, L4, L5 Lumbar Facet Loading Test positive Straight Leg Raise: positive at 30 degrees right side/ left side Gaenslen's Test positive Sacral spine : Severe tenderness over the Sacroiliac joint: right side / left side Range of motion: Flexion of the lumbar spine <60 degrees Range of motion: Extension of the lumbar spine <20 degrees Gaenslen's Test positive Ana test: positive right side / left side Thigh Thrust Test Sacral Thrust Test Assessment and plan: Chronic low back pain secondary to lumbar degenerative disc disease, spondylosis with facet arthropathy without myelopathy Chronic and current use of high-risk medication (Opioids). The patient was counseled about risk of opioid use, psychological risk associated with opioids and was orally counseled to not overuse , divert or sell medications. Pt is to store medication in a safe location. The patient is counseled against driving while using narcotic medications and also not to use alcohol or any illicit recreational drugs. Patient verbalized understanding that the lack of compliance will result in failure to renew narcotic prescription(s) as well as possible discharge from the clinic Diagnoses, prognosis and treatment options including but not limited to physical therapy, surgical interventions, interventional therapies and medication management including narcotics and adjuvant medication were discussed. All patient questions answered MAPS reviewed and it was appropriate. Prescription refill for Percocet 10/325mg #90, Neurontin 300mg #90, Baclofen w 1 RF I have spent less than 30 minutes on patient care today. Dr Rubin was available by phone for the evaluation of this patient. The time was used to review the medical records including relevant urine studies and Prescription history (MAPs), review of the available imaging, evaluation and examination of the patient, coordination of care with the medical staff and if applicable referring physicians, as well as creation of the medical record PQRS Narrative: Smoking Status Former smoker Narcotic Agreement Date Signed 06/18/22 Hx Alcohol Use (MH) No Home Medications: Ambulatory Orders Ubidecarenone [Co Q-10] 200 mg PO HS 02/24/17 Rivaroxaban [Xarelto] 10 mg PO DAILY 08/27/17 Levothyroxine Sodium [Synthroid] 125 mcg PO QAM 06/27/18 Rosuvastatin Calcium [Crestor] 5 mg PO HS 06/27/18 Losartan Potassium 100 mg PO DAILY 10/31/18 Docusate [Colace] 100 mg PO BID PRN 06/24/19 Vitamin C/Biotin [Hair, Skin and Nails] 1 tab PO DAILY 07/02/19 Denosumab [Prolia] 60 mg SQ Q180D 07/13/19 Diltiazem Cd [Cardizem Cd] 240 mg PO DAILY 07/13/19 Salmeterol Xinafoate [Serevent Diskus] 1 puff INHALATION RT-BID 07/13/19 Sulfamethox-Tmp 800-160Mg [Bactrim DS 800-160 mg] 1 tab PO MOWEFR 02/26/20 Joni/D3/Mag11/Zinc/Computer Science Intern/Jaylon/Bor [Caltrate 600+D Plus Tablet] 1 tab PO DAILY 07/28/20 Levocetirizine Dihydrochloride [Xyzal] 5 mg PO DAILY 01/05/21 Vit C/E/Zn/Coppr/Lutein/Zeaxan [Preservision Areds 2 Softgel] 1 tab PO BID 04/28/21 Cholecalciferol [Vitamin D3 (25 Mcg = 1000 Iu)] 25 mcg PO DAILY 09/07/21 Esomeprazole Magnesium [NexIUM 24Hr] 20 mg PO DAILY 09/07/21 Fluticasone Propionate [Flovent Diskus] 1 puff INHALATION RT-BID 09/07/21 Gabapentin [Neurontin] 600 mg PO HS 09/07/21 Hydrocortisone [Cortef] 10 mg PO W/SUPPER 09/07/21 Hydrocortisone [Cortef] 15 mg PO DAILY 09/07/21 Ipratropium Nebulized [Atrovent Nebulized 0.2 MG/ML] 0.5 mg INHALATION RT-QID PRN 09/07/21 Linaclotide [Linzess] 290 mcg PO DAILY 09/07/21 Magnesium Oxide [Harper] 500 mg PO DAILY 09/07/21 Multivit-Min/Iron/Folic/Lutein [Centrum Silver Women Tablet] 1 tab PO DAILY 09/07/21 Vitamin C Gummies 250mg 250 mg PO BID 09/07/21 Baclofen 10 mg PO BID 30 Days #60 tab 08/13/22 Gabapentin 300 mg PO TID 30 Days #90 cap 08/13/22 oxyCODONE HCL/ACETAMINOPHEN [Percocet 10-325 mg] 1 tab PO Q8HR PRN 30 Days #90 tab 08/13/22 oxyCODONE-APAP 10-325MG [Percocet 10-325 mg] 1 tab PO Q8HR PRN 30 Days #90 tab 08/13/22 Controlled Substance Measures - Controlled Substance Measures Is patient prescribed a controlled substance at discharge?: Yes When asked, does pt state using other controlled substances?: No If prescribed controlled substance>3 days was MAPS reviewed?: Yes If Rx opioid, was Start Talking consent form obtained?: Yes Was information provided regarding opioid addiction?: Yes
== END ==
LOC: PNWHC3 10:21
PROVIDERS: ATTEND Specialist
DX: M47.816 Spondylosis without myelopathy or radiculopathy, lumbar region (principal); M51.36 Other intervertebral disc degeneration, lumbar region; Z79.891 Long term (current) use of opiate analgesic; Z87.891 Personal history of nicotine dependence; Z88.1 Allergy status to other antibiotic agents; Z88.0 Allergy status to penicillin; Z88.8 Allergy status to other drugs, medicaments and biological substances; Z91.018 Allergy to other foods
CPT/HCPCS: 99211

== ENCOUNTER 2022-12-26 06:50 | Day surgery (SDC) | payer MEDICARE, BC ==
[2022-12-21 14:50] VITALS: BMI 49.1
[~2022-12-26 06:50] MED LIST changes: +LIDOCAINE 1% (10MG/ML) FOR IV START INTRADERMA PRN
[2022-12-26 07:49] VITALS: TEMP 98.4
[2022-12-26] MEDS ORDERED: PROPOFOL 10 MG/ML 20 ML VIAL IV ONE (07:49)
[2022-12-26] MEDS ORDERED: LIDOCAINE 2% INJ 20 MG/ML (2 ML VIAL) ONE (07:49)
--- NOTE | 2022-12-26 08:09 | P.PCN ---
Date of Procedure: 12/26/22 Procedure(s) Performed: Brief history: Patient is a pleasant 72-year-old white female scheduled for an elective upper endoscopy as well as colonoscopy as a part of evaluation of GERD/intermittent dysphagia to solids and screening for colon cancer/family history of colon cancer Procedure performed: Esophagogastroduodenoscopy with biopsy Colonoscopy Preoperative diagnosis: GERD/intermittent dysphagia to solids Screening for colon cancer/family history of colon cancer diagnosed and at age 60 Anesthesia: MAC Procedure: After informed consent was obtained from the patient was brought into the endoscopy unit and IV sedation was administered by anesthesia under continuous monitoring. Initially upper endoscopy was done. The Olympus GF 160 video endoscope was inserted inserted into the mouth and esophagus intubated without any difficulty and was gradually advanced into the stomach and duodenum and carefully examined. The bulb and second part of the duodenum appeared normal. The scope was then withdrawn into the stomach adequately insufflated with air and upon careful examination the antrum and body, cardia and fundus appeared normal. Small gastric polyps noted which were biopsied. The scope was then withdrawn into the esophagus. The GE junction was located at 40 cm to the inci sors. It appeared regular with no erythema erosions or ulcerations. Rest of the esophagus appeared normal. Abscesses were done from the distal esophagus to rule out eosinophilic esophagitis. Patient tolerated the procedure well. At this time the patient continued to remain sedation. Initial digital rectal examination was normal. Olympus CF 160 video colonoscope was then inserted into the rectum and gradually advanced to the cecum without any difficulty. Careful examination was performed as the scope was gradually being withdrawn. The prep was excellent. The cecum, appeared normal. In the ascending colon there was a 1 cm polyp removed by snare polypectomy. Rest of the ascending colon, transverse colon, descending colon, sigmoid colon and rectum appeared normal. Retroflexion was performed in the rectum and grade 2 internal hemorrhoids were noted. Patient tolerated the procedure well. Impression: 1. Upper endoscopy revealed small gastric polyps. No evidence of esophagitis or esophageal stricture 2. Colonoscopy revealed 1 cm ascending colon polyp status post polypectomy and small internal hemorrhoids Recommendations: Findings of this examination were discussed with the patient as well as her family. She was advised to follow with the biopsy results. If the biopsy results adenoma she can have a repeat colonoscopy in 3 years.
[2022-12-26 08:55] VITALS: RESP 16
[2022-12-26 09:57] VITALS: BP 116/70
[2022-12-26 10:00] VITALS: PULSE 81
== END 2022-12-26 10:12 | disposition home or self-care (01) ==
LOC: ORWHC2ENDO 06:50
PROVIDERS: ATTEND Internal Medicine Gastroenterology
DX: Z12.11 Encounter for screening for malignant neoplasm of colon (principal); D12.2 Benign neoplasm of ascending colon; K31.7 Polyp of stomach and duodenum; K21.00 Gastro-esophageal reflux disease with esophagitis, without bleeding; K29.50 Unspecified chronic gastritis without bleeding; Z80.0 Family history of malignant neoplasm of digestive organs; Z87.19 Personal history of other diseases of the digestive system
CPT/HCPCS: 88305; 45385; 43239; J2704; J2001

== ENCOUNTER → 2023-01-30 | Outpatient (CLI) | payer MEDICARE, BC ==
[2023-01-30 12:24] VITALS: BP 123/70; RESP 18; TEMP 98.2
--- NOTE | 2023-01-30 14:17 | P.PAINPG ---
PQRS Measure Charge Sheet Comment: A 72 yr old female w at side with a history of severe and chronic LBP secondary to lumbar DDD and spondylosis with facet arthropathy without myelopathy presents today for medication refills. Pain level is provoked at 6/10 in intensity, constant, localized in the lumbar spine, sharp in character w shooting towards the BLEs. Pain is provoked by bending, walking for periods of 10 min or more. Pain is alleviated with PT x 5 wks years ago, heat, ice, medications, topicals, reclining, acupuncture therapy in the past without relief, use of a wheelchair for ambulatory assistance, repositioning and rest. Patient is currently on Percocet 10/325mg #90, Neurontin 300mg #90, Baclofen Patient denies any side effects of the medication(s), denies excessive drowsiness or sleepiness, denies suicidal ideation and reports that the current pain medication is helping to control the pain and improve activities of daily living. Patient denies any motor or sensory deficits. Patient denies any fever or night sweats, denies any change in the bowel movements or urination. Physical Examination: -Constitutional: Cooperative. Not in acute distress . - Neurologic: Cranial nerve II to XII intact. No focal neurological deficits. - Psychatric: Alert & oriented x 3. Matching mood & appropriate affect. Judgment and insight intact. - Musculoskeletal: Cervical spine: Muscle bulk/ tone/ strength in the bilateral upper extremities normal Vertebral body tenderness to palpation over Spurling test positive Distraction test positive Facet loading test positive TTP Thoracic spine Muscle bulk / tone/ strength in the bilateral paraspinal muscles normal Vertebral body tender to palpation over Facet loading test positive TTP Lumbar spine: Motor bulk/ tone/ strength lower extremities , thigh and legs : 5/5 Deep tendon reflexes : Normal Knee Jerk. Normal Ankle Jerk . Vertebral body tenderness to palpation over Lumbar Facet Loading Test positive Straight Leg Raise: positive at 30 degrees right side/ left side Gaenslen's Test positive Sacral spine : Severe tenderness over the Sacroiliac joint: right side / left side Range of motion: Flexion of the lumbar spine <60 degrees Range of motion: Extension of the lumbar spine <20 degrees Gaenslen's Test positive right side / left side Ana test: positive right side / left side Thigh Thrust Test positive right side / left side Sacral Thrust Test positive right side / left side Assessment and plan: Chronic LBP secondary to lumbar DDD, spondylosis with facet arthropathy without myelopathy Chronic and current use of high-risk medication (Opioids). The patient was counseled about risk of opioid use, psychological risk associated with opioids and was orally counseled to not overuse , divert or sell medications. Pt is to store medication in a safe location. The patient is counseled against driving while using narcotic medications and also not to use alcohol or any illicit recreational drugs. Patient verbalized understanding that the lack of compliance will result in failure to renew narcotic prescription(s) as well as possible discharge from the clinic Diagnoses, prognosis and treatment options including but not limited to physical therapy, surgical interventions, interventional therapies and med ication management including narcotics and adjuvant medication were discussed. All patient questions answered MAPS reviewed and it was appropriate. UDS collected today 01/30/23 Prescription refill for Percocet 10/325mg #90, Neurontin 300mg #90, Baclofen w 1 RF I have spent less than 30 minutes on patient care today. Dr Rubin was available by phone for the evaluation of this patient. The time was used to review the medical records including relevant urine studies and Prescription history (MAPs), review of the available imaging, evaluation and examination of the patient, coordination of care with the medical staff and if applicable referring physicians, as well as creation of the medical record PQRS Narrative: Smoking Status Former smoker Narcotic Agreement Date Signed 06/18/22 Hx Alcohol Use (MH) No Home Medications: Ambulatory Orders Rivaroxaban [Xarelto] 10 mg PO DAILY 08/27/17 Rosuvastatin Calcium [Crestor] 5 mg PO HS 06/27/18 Losartan Potassium 100 mg PO 169910/31/18 Vitamin C/Biotin [Hair, Skin and Nails Chew] 1 tab PO DAILY@1500 07/02/19 Denosumab [Prolia] 60 mg SQ Q180D 07/13/19 Diltiazem Cd [Cardizem CD] 240 mg PO DAILY@169907/13/19 Sulfamethox-Tmp 800-160Mg [Bactrim DS 800-160 mg] 1 tab PO MOWEFR@1700 02/26/20 Levocetirizine Dihydrochloride [Xyzal] 5 mg PO DAILY 01/05/21 Vit C/E/Zn/Coppr/Lutein/Zeaxan [Preservision Areds 2 Softgel] 1 cap PO BID Cholecalciferol [Vitamin D3 (25 Mcg = 1000 Iu)] 25 mcg PO DAILY@1700 09/07/21 Esomeprazole Magnesium [NexIUM 24Hr] 20 mg PO DAILY 09/07/21 Fluticasone Propionate [Flovent Diskus] 1 puff INHALATION RT-BID 09/07/21 Hydrocortisone [Cortef] 10 mg PO DAILY@1500 09/07/21 Hydrocortisone [Cortef] 15 mg PO DAILY 09/07/21 Ipratropium Nebulized [Atrovent Nebulized 0.2 MG/ML] 0.5 mg INHALATION RT-QID PRN 09/07/21 Linaclotide [Linzess] 290 mcg PO DAILY 09/07/21 Multivit-Min/Iron/Folic/Lutein [Centrum Silver Women Tablet] 1 tab PO DAILY@1700 09/07/21 Albuterol Sulfate [Albuterol Sulfate Hfa] 2 puff PO RT-Q6H PRN 11/12/22 Ascorbic Acid [Vitamin C chew] 500 mg PO DAILY 11/12/22 Benzonatate [Tessalon Perles] 100 mg PO TID PRN 11/12/22 Calcium Carbonate/Vitamin D3 [Caltrate 600 Plus D3 20 Mcg (800 Iu)] 1 tab PO BID@1500,2100 11/12/22 Fluticasone/Umeclidin/Vilanter [Trelegy Ellipta 200-62.5-25] 1 puff INHALATION QAM 11/12/22 Levothyroxine Sodium [Synthroid] 125 mcg PO QAM 11/12/22 Magnesium 200 mg PO DAILY@1500 11/12/22 Tezepelumab-Ekko [Tezspire] 210 mg SQ QMONTHLY 11/12/22 Ubidecarenone [Coenzyme Q10] 200 mg PO HS 11/12/22 polyethylene glycoL 3350 [Miralax] 17 gm PO DAILY PRN 11/12/22 Baclofen 10 mg PO BID 30 Days #60 tab 01/30/23 Gabapentin 300 mg PO TID 30 Days #90 cap 01/30/23 oxyCODONE-APAP 10-325MG [Percocet 10-325 mg] 1 tab PO Q8HR PRN 30 Days #90 tab 01/30/23 oxyCODONE-APAP 10-325MG [Percocet 10-325 mg] 1 tab PO TID PRN 30 Days #90 tab 01/30/23 Controlled Substance Measures - Controlled Substance Measures Is patient prescribed a controlled substance at discharge?: Yes
== END ==
LOC: PNWHC3 09:59
PROVIDERS: ATTEND Specialist
DX: M51.36 Other intervertebral disc degeneration, lumbar region (principal); M47.816 Spondylosis without myelopathy or radiculopathy, lumbar region; G89.29 Other chronic pain; Z79.891 Long term (current) use of opiate analgesic; Z87.891 Personal history of nicotine dependence; Z71.51 Drug abuse counseling and surveillance of drug abuser; Z88.1 Allergy status to other antibiotic agents; Z88.0 Allergy status to penicillin; Z88.8 Allergy status to other drugs, medicaments and biological substances
CPT/HCPCS: 80307; G0482; G0463; 99212

== ENCOUNTER → 2023-02-22 | Outpatient (CLI) | payer MEDICARE, BC ==
--- NOTE | 2023-02-25 08:15 | MM ---
Reason for Exam: Screening (asymptomatic). Last mammogram was performed 1 year(s) and 1 month(s) ago. Patient History: Menarche at age 11. First Full-Term at age 30. Late child-bearing (after 30). Postmenopausal. Paternal aunt had breast cancer. Risk Values: Kavya 5 year model risk: 2.7%. NCI Lifetime model risk: 6.9%. Prior Study Comparison: 05/02/2016 Bilateral Screening Mammogram, [facility]. 06/18/2017 Bilateral Screening Mammogram, [facility]. 06/26/2018 Bilateral Screening Mammogram, [facility]. 07/30/2019 Bilateral Screening Mammogram, [facility]. 11/23/2020 Bilateral Screening Mammogram, [facility]. 01/30/2022 Bilateral Screening Mammogram, [facility]. Tissue Density: The breast tissue is heterogeneously dense. This may lower the sensitivity of mammography. Findings: Analyzed By CAD. There is no suspicious group of microcalcifications or new suspicious mass in either breast. Overall Assessment: Negative, BI-RAD 1 Management: Screening Mammogram of both breasts in 1 year. . Patient should continue monthly self-breast exams. A clinical breast exam by your physician is recommended on an annual basis. This exam should not preclude additional follow-up of suspicious palpable abnormalities. Note on Kavya scores and lifetime risk: 1. A Kavya score greater than 3% is considered moderate risk. If this is the case, consider specialist referral to assess eligibility for a risk reducing agent. 2. If overall lifetime risk for the development of breast cancer is 20% or higher, the patient may qualify for future screening with alternating mammogram and breast MRI. Electronically signed and approved by: Kojo Schmitz M.D. Radiologis
== END | disposition home or self-care (01) ==
LOC: RADMAMWWP 11:08
PROVIDERS: ATTEND Family Medicine
DX: Z12.31 Encounter for screening mammogram for malignant neoplasm of breast (principal); Z78.0 Asymptomatic menopausal state; Z80.3 Family history of malignant neoplasm of breast
CPT/HCPCS: 77063; 77067

== ENCOUNTER → 2023-03-28 | Outpatient (CLI) | payer MEDICARE, BC ==
[2023-03-28 09:52] VITALS: BP 133/62; PULSE 73; RESP 16; TEMP 97.8
--- NOTE | 2023-03-28 15:01 | P.PAINPG ---
PQRS Measure Charge Sheet Comment: A 72 yr old wheelchair bound female w at side with a history of severe and chronic LBP since 2013 secondary to lumbar DDD and spondylosis with facet arthropathy without myelopathy presents today for medication refills. Pain level is provoked at 6 /10 in intensity, constant, localized in the lumbar spine, sharp in character w shooting towards the BLEs, L >R. Pain is provoked by standing/ walking for periods of 15 min, or bending. Pain is alleviated with medications, PT years ago but provoked pain, acupuncture in 2019 which was ineffective, heat, medications, topical, use of reclining posturepedic bed, laying on her R side repositioning and rest. Interventional pain procedures completed include LESIs Patient is currently on Percocet 10/325mg, Neurontin, Baclofen Patient denies any side effects of the medication(s), denies excessive drowsiness or sleepiness, denies suicidal ideation and reports that the current pain medication is helping to control the pain and improve activities of daily living. Patient denies any motor or sensory deficits. Patient denies any fever or night sweats, denies any change in the bowel movements or urination. Physical Examination: -Constitutional: Cooperative. Not in acute distress . - Neurologic: Cranial nerve II to XII intact. No focal neurological def icits. - Psychatric: Alert & oriented x 3. Matching mood & appropriate affect. Judgment and insight intact. - Musculoskeletal: Cervical spine: Muscle bulk/ tone/ strength in the bilateral upper extremities normal Vertebral body tenderness to palpation over Spurling test positive Distraction test positive Facet loading test positive Thoracic spine Muscle bulk / tone/ strength in the bilateral paraspinal muscles normal Vertebral body tender to palpation over Facet loading test positive Lumbar spine: Motor bulk/ tone/ strength lower extremities , thigh and legs : 5/5 Deep tendon reflexes : Normal Knee Jerk. Normal Ankle Jerk . Vertebral body tenderness to palpation over L3, L4, L5 Lumbar Facet Loading Test positive Straight Leg Raise: positive at 30 degrees right side/ left side Gaenslen's Test positive Sacral spine : Severe tenderness over the Sacroiliac joint: right side / left side Range of motion: Flexion of the lumbar spine <60 degrees Range of motion: Extension of the lumbar spine <20 degrees Gaenslen's Test positive Ana test: positive right side / left side Thigh Thrust Test Sacral Thrust Test Assessment and plan: Chronic LBP secondary to lumbar DDD, spondylosis with facet arthropathy without myelopathy Chronic and current use of high-risk medication (Opioids). The patient was counseled about risk of opioid use, psychological risk associated with opioids and was orally counseled to not overuse , divert or sell medications. Pt is to store medication in a safe location. The patient is counseled against driving while using narcotic medications and also not to use alcohol or any illicit recreational drugs. Patient verbalized understanding that the lack of compliance will result in failure to renew narcotic prescription(s) as well as possible discharge from the clinic Diagnoses, prognosis and treatment options including but not limited to physical therapy, surgical interventions, interventional therapies and medication management including narcotics and adjuvant medication were discussed. All patient questions answered MAPS reviewed and it was appropriate. UDS / Blood tox screen from 12/05/22 reviewed and consistent. Prescription refill for Baclofen, Neurontin, Percocet 10/325mg # 90 w 1 RF. I have spent less than 30 minutes on patient care today. Dr Rubin was available by phone for the evaluation of this patient. The time was used to review the medical records including relevant urine studies and Prescription history (MAPs), review of the available imaging, evaluation and examination of the patient, coordination of care with the medical staff and if applicable referring physicians, as well as creation of the medical record PQRS Narrative: Smoking Status Former smoker Narcotic Agreement Date Signed 06/18/22 Hx Alcohol Use (MH) No Home Medications: Ambulatory Orders Rivaroxaban [Xarelto] 10 mg PO DAILY 08/27/17 Rosuvastatin Calcium [Crestor] 5 mg PO HS 06/27/18 Losartan Potassium 100 mg PO 169910/31/18 Vitamin C/Biotin [Hair, Skin and Nails Chew] 1 tab PO DAILY@1500 07/02/19 Denosumab [Prolia] 60 mg SQ Q180D 07/13/19 Diltiazem Cd [Cardizem CD] 240 mg PO DAILY@169907/13/19 Sulfamethox-Tmp 800-160Mg [Bactrim DS 800-160 mg] 1 tab PO MOWEFR@1700 02/26/20 Levocetirizine Dihydrochloride [Xyzal] 5 mg PO DAILY 01/05/21 Vit C/E/Zn/Coppr/Lutein/Zeaxan [Preservision Areds 2 Softgel] 1 cap PO BID 04/28/21 Cholecalciferol [Vitamin D3 (25 Mcg = 1000 Iu)] 25 mcg PO DAILY@1700 09/07/21 Esomeprazole Magnesium [NexIUM 24Hr] 20 mg PO DAILY 09/07/21 Fluticasone Propionate [Flovent Diskus] 1 puff INHALATION RT-BID 09/07/21 Hydrocortisone [Cortef] 10 mg PO DAILY@1500 09/07/21 Hydrocortisone [Cortef] 15 mg PO DAILY 09/07/21 Ipratropium Nebulized [Atrovent Nebulized 0.2 MG/ML] 0.5 mg INHALATION RT-QID PRN 09/07/21 Linaclotide [Linzess] 290 mcg PO DAILY 09/07/21 Multivit-Min/Iron/Folic/Lutein [Centrum Silver Women Tablet] 1 tab PO DAILY@1700 09/07/21 Albuterol Sulfate [Albuterol Sulfate Hfa] 2 puff PO RT-Q6H PRN 11/12/22 Ascorbic Acid [Vitamin C chew] 500 mg PO DAILY 11/12/22 Benzonatate [Tessalon Perles] 100 mg PO TID PRN 11/12/22 Calcium Carbonate/Vitamin D3 [Caltrate 600 Plus D3 20 Mcg (800 Iu)] 1 tab PO BID@1500,2100 11/12/22 Fluticasone/Umeclidin/Vilanter [Trelegy Ellipta 200-62.5-25] 1 puff INHALATION QAM 11/12/22 Levothyroxine Sodium [Synthroid] 125 mcg PO QAM 11/12/22 Magnesium 200 mg PO DAILY@1500 11/12/22 Tezepelumab-Ekko [Tezspire] 210 mg SQ QMONTHLY 11/12/22 Ubidecarenone [Coenzyme Q10] 200 mg PO HS 11/12/22 polyethylene glycoL 3350 [Miralax] 17 gm PO DAILY PRN 11/12/22 Baclofen 10 mg PO BID 30 Days #60 tab 03/28/23 Gabapentin 300 mg PO TID 30 Days #90 cap 03/28/23 oxyCODONE-APAP 10-325MG [Percocet 10-325 mg] 1 tab PO Q8HR PRN 30 Days #90 tab 03/28/23 oxyCODONE-APAP 10-325MG [Percocet 10-325 mg] 1 tab PO TID PRN 30 Days #90 tab 03/28/23 Controlled Substance Measures - Controlled Substance Measures Is patient prescribed a controlled substance at discharge?: Yes When asked, does pt state using other controlled substances?: No If prescribed controlled substance>3 days was MAPS reviewed?: Yes
== END ==
LOC: PNWHC3 09:15
PROVIDERS: ATTEND Specialist
DX: M51.36 Other intervertebral disc degeneration, lumbar region (principal); M47.816 Spondylosis without myelopathy or radiculopathy, lumbar region; G89.29 Other chronic pain; Z79.891 Long term (current) use of opiate analgesic; Z88.0 Allergy status to penicillin; Z88.1 Allergy status to other antibiotic agents; Z88.8 Allergy status to other drugs, medicaments and biological substances; Z91.018 Allergy to other foods; Z87.891 Personal history of nicotine dependence
CPT/HCPCS: 99211

== ENCOUNTER → 2023-05-23 | Outpatient (CLI) | payer MEDICARE, BC ==
[2023-05-23 08:37] VITALS: BP 121/82; PULSE 80; RESP 15; TEMP 98.3
--- NOTE | 2023-05-23 12:23 | P.PAINPG ---
PQRS Measure Charge Sheet Comment: A 72 yr old wheelchair bound female w at side with a history of severe and chronic LBP since 2013 secondary to lumbar DDD and spondylosis with facet arthropathy without myelopathy presents today for medication refills. Pain level is provoked at 7 /10 in intensity, constant, localized in the lumbar spine, sharp in character w shooting towards the BLEs, L >R. Pain is provoked by standing/ walking for periods of 15 min, or bending. Pain is alleviated with medications, PT years ago but provoked pain, acupuncture in 2019 which was ineffective, heat, medications, topical, use of reclining posturepedic bed, laying on her R side repositioning and rest. Interventional pain procedures completed include LESIs Patient is currently on Percocet 10/325mg, Neurontin, Baclofen Patient denies any side effects of the medication(s), denies excessive drowsiness or sleepiness, denies suicidal ideation and reports that the current pain medication is helping to control the pain and improve activities of daily living. Patient denies any motor or sensory deficits. Patient denies any fever or night sweats, denies any change in the bowel movements or urination. Physical Examination: -Constitutional: Cooperative. Not in acute distress . - Neurologic: Cranial nerve II to XII intact. No focal neurological def icits. - Psychatric: Alert & oriented x 3. Matching mood & appropriate affect. Judgment and insight intact. - Musculoskeletal: Cervical spine: Muscle bulk/ tone/ strength in the bilateral upper extremities normal Vertebral body tenderness to palpation over Spurling test positive Distraction test positive Facet loading test positive Thoracic spine Muscle bulk / tone/ strength in the bilateral paraspinal muscles normal Vertebral body tender to palpation over Facet loading test positive Lumbar spine: Motor bulk/ tone/ strength lower extremities , thigh and legs : 5/5 Deep tendon reflexes : Normal Knee Jerk. Normal Ankle Jerk . Vertebral body tenderness to palpation over L3, L4, L5 Lumbar Facet Loading Test positive Straight Leg Raise: positive at 30 degrees right side/ left side Gaenslen's Test positive Sacral spine : Severe tenderness over the Sacroiliac joint: right side / left side Range of motion: Flexion of the lumbar spine <60 degrees Range of motion: Extension of the lumbar spine <20 degrees Gaenslen's Test positive Ana test: positive right side / left side Thigh Thrust Test Sacral Thrust Test Assessment and plan: Chronic LBP secondary to lumbar DDD, spondylosis with facet arthropathy without myelopathy Chronic and current use of high-risk medication (Opioids). The patient was counseled about risk of opioid use, psychological risk associated with opioids and was orally counseled to not overuse , divert or sell medications. Pt is to store medication in a safe location. The patient is counseled against driving while using narcotic medications and also not to use alcohol or any illicit recreational drugs. Patient verbalized understanding that the lack of compliance will result in failure to renew narcotic prescription(s) as well as possible discharge from the clinic Diagnoses, prognosis and treatment options including but not limited to physical therapy, surgical interventions, interventional therapies and medication management including narcotics and adjuvant medication were discussed. All patient questions answered MAPS reviewed and it was appropriate. UDS / Blood tox screen from 12/05/22 reviewed and consistent. Prescription refill for Baclofen, Neurontin, Percocet 10/325mg # 90 w 2 RF. I have spent less than 30 minutes on patient care today. Dr Rubin was available by phone for the evaluation of this patient. The time was used to review the medical records including relevant urine studies and Prescription history (MAPs), review of the available imaging, evaluation and examination of the patient, coordination of care with the medical staff and if applicable referring physicians, as well as creation of the medical record PQRS Narrative: Smoking Status Former smoker Narcotic Agreement Date Signed 06/18/22 Hx Alcohol Use (MH) No Home Medications: Ambulatory Orders Rivaroxaban [Xarelto] 10 mg PO DAILY 08/27/17 Rosuvastatin Calcium [Crestor] 5 mg PO HS 06/27/18 Losartan Potassium 100 mg PO 169910/31/18 Vitamin C/Biotin [Hair, Skin and Nails Chew] 1 tab PO DAILY@1500 07/02/19 Denosumab [Prolia] 60 mg SQ Q180D 07/13/19 Diltiazem Cd [Cardizem CD] 240 mg PO DAILY@169907/13/19 Sulfamethox-Tmp 800-160Mg [Bactrim DS 800-160 mg] 1 tab PO MOWEFR@1700 02/26/20 Levocetirizine Dihydrochloride [Xyzal] 5 mg PO DAILY 01/05/21 Vit C/E/Zn/Coppr/Lutein/Zeaxan [Preservision Areds 2 Softgel] 1 cap PO BID 04/28/21 Cholecalciferol [Vitamin D3 (25 Mcg = 1000 Iu)] 25 mcg PO DAILY@1700 09/07/21 Esomeprazole Magnesium [NexIUM 24Hr] 20 mg PO DAILY 09/07/21 Fluticasone Propionate [Flovent Diskus] 1 puff INHALATION RT-BID 09/07/21 Hydrocortisone [Cortef] 10 mg PO DAILY@1500 09/07/21 Hydrocortisone [Cortef] 15 mg PO DAILY 09/07/21 Ipratropium Nebulized [Atrovent Nebulized 0.2 MG/ML] 0.5 mg INHALATION RT-QID PRN 09/07/21 Linaclotide [Linzess] 290 mcg PO DAILY 09/07/21 Multivit-Min/Iron/Folic/Lutein [Centrum Silver Women Tablet] 1 tab PO DAILY@1700 09/07/21 Albuterol Sulfate [Albuterol Sulfate Hfa] 2 puff PO RT-Q6H PRN 11/12/22 Ascorbic Acid [Vitamin C chew] 500 mg PO DAILY 11/12/22 Benzonatate [Tessalon Perles] 100 mg PO TID PRN 11/12/22 Calcium Carbonate/Vitamin D3 [Caltrate 600 Plus D3 20 Mcg (800 Iu)] 1 tab PO BID@1500,2100 11/12/22 Fluticasone/Umeclidin/Vilanter [Trelegy Ellipta 200-62.5-25] 1 puff INHALATION QAM 11/12/22 Levothyroxine Sodium [Synthroid] 125 mcg PO QAM 11/12/22 Magnesium 200 mg PO DAILY@1500 11/12/22 Tezepelumab-Ekko [Tezspire] 210 mg SQ QMONTHLY 11/12/22 Ubidecarenone [Coenzyme Q10] 200 mg PO HS 11/12/22 polyethylene glycoL 3350 [Miralax] 17 gm PO DAILY PRN 11/12/22 Baclofen 10 mg PO BID 30 Days #60 tab 05/23/23 Gabapentin 300 mg PO TID 30 Days #90 cap 05/23/23 oxyCODONE-APAP 10-325MG [Percocet 10-325 mg] 1 tab PO Q8HR PRN 30 Days #90 tab 05/23/23 oxyCODONE-APAP 10-325MG [Percocet 10-325 mg] 1 tab PO TID PRN 30 Days #90 tab 05/23/23 oxyCODONE-APAP 10-325MG [Percocet 10-325 mg] 1 tab PO TID PRN 30 Days #90 tab 05/23/23 Controlled Substance Measures - Controlled Substance Measures Is patient prescribed a controlled substance at discharge?: Yes When asked, does pt state using other controlled substances?: No If prescribed controlled substance>3 days was MAPS reviewed?: Yes
== END ==
LOC: PNWHC3 08:06
PROVIDERS: ATTEND Specialist
DX: M51.36 Other intervertebral disc degeneration, lumbar region (principal); M47.816 Spondylosis without myelopathy or radiculopathy, lumbar region; G89.29 Other chronic pain; Z79.891 Long term (current) use of opiate analgesic; Z87.891 Personal history of nicotine dependence; Z88.8 Allergy status to other drugs, medicaments and biological substances; Z88.1 Allergy status to other antibiotic agents; Z88.0 Allergy status to penicillin; Z91.018 Allergy to other foods
CPT/HCPCS: 99211

== ENCOUNTER → 2023-08-15 | Outpatient (CLI) | payer MEDICARE, BC ==
[2023-08-15 11:08] VITALS: BP 114/62; PULSE 57; RESP 15; TEMP 98.4
--- NOTE | 2023-08-15 15:03 | P.PAINPG ---
PQRS Measure Charge Sheet Comment: A 72 yr old wheelchair bound female w at side with a history of severe and chronic LBP since 2013 secondary to lumbar DDD and spondylosis with facet arthropathy without myelopathy presents today for medication refills. Pain level is provoked at 7 /10 in intensity, constant, localized in the lumbar spine, sharp in character w shooting towards the BLEs, L >R. Pain is provoked by standing/ walking for periods of 10-15 min, or bending. Pain is alleviated with medications, PT years ago but provoked pain, acupuncture in 2019 which was ineffective, heat, medications, topical, use of reclining posture-pedic bed, laying on her R side repositioning and rest. Interventional pain procedures completed include LESIs Patient is currently on Percocet 10/325mg, Neurontin, Baclofen Patient denies any side effects of the medication(s), denies excessive drowsiness or sleepiness, denies suicidal ideation and reports that the current pain medication is helping to control the pain and improve activities of daily living. Patient denies any motor or sensory deficits. Patient denies any fever or night sweats, denies any change in the bowel movements or urination. Physical Examination: -Constitutional: Cooperative. Not in acute distress . - Neurologic: Cranial nerve II to XII intact. No focal neurological deficits. - Psychatric: Alert & oriented x 3. Matching mood & appropriate affect. Judgment and insight intact. - Musculoskeletal: Cervical spine: Muscle bulk/ tone/ strength in the bilateral upper extremities normal Vertebral body tenderness to palpation over Spurling test positive Distraction test positive Facet loading test positive Thoracic spine Muscle bulk / tone/ strength in the bilateral paraspinal muscles normal Vertebral body tender to palpation over Facet loading test positive Lumbar spine: Motor bulk/ tone/ strength lower extremities , thigh and legs : 5/5 Deep tendon reflexes : Normal Knee Jerk. Normal Ankle Jerk . Vertebral body tenderness to palpation over L3, L4, L5 Lumbar Facet Loading Test positive Straight Leg Raise: positive at 30 degrees right side/ left side Gaenslen's Test positive Sacral spine : Severe tenderness over the Sacroiliac joint: right side / left side Range of motion: Flexion of the lumbar spine <60 degrees Range of motion: Extension of the lumbar spine <20 degrees Gaenslen's Test positive Ana test: positive right side / left side Thigh Thrust Test Sacral Thrust Test Assessment and plan: Chronic LBP secondary to lumbar DDD, spondylosis with facet arthropathy without myelopathy Chronic and current use of high-risk medication (Opioids). The patient was counseled about risk of opioid use, psychological risk associated with opioids and was orally counseled to not overuse , divert or sell medications. Pt is to store medication in a safe location. The patient is counseled against driving while using narcotic medications and also not to use alcohol or any illicit recreational drugs. Patient verbalized understanding that the lack of compliance will result in failure to renew narcotic prescription(s) as well as possible discharge from the clinic Diagnoses, prognosis and treatment options including but not limited to physical therapy, surgical interventions, interventional therapies and medication management including narcotics and adjuvant medication were discussed. All patient questions answered MAPS reviewed and it was appropriate. Blood tox screen ordered 08/15/23. Prescription refill for Baclofen, Neurontin, Percocet 10/325mg # 90 w 2 RF. I have spent less than 30 minutes on patient care today. Dr Rubin was available by phone for the evaluation of this patient. The time was used to review the medical records including relevant urine studies and Prescription history (MAPs), review of the available imaging, evaluation and examination of the patient, coordination of care with the medical staff and if applicable referring physicians, as well as creation of the medical record PQRS Narrative: Smoking Status Former smoker Narcotic Agreement Date Signed 06/18/22 Hx Alcohol Use (MH) No Home Medications: Ambulatory Orders Rivaroxaban [Xarelto] 10 mg PO DAILY 08/27/17 Rosuvastatin Calcium [Crestor] 5 mg PO HS 06/27/18 Losartan Potassium 100 mg PO 169910/31/18 Vitamin C/Biotin [Hair, Skin and Nails Chew] 1 tab PO DAILY@1500 07/02/19 Denosumab [Prolia] 60 mg SQ Q180D 07/13/19 Diltiazem Cd [Cardizem CD] 240 mg PO DAILY@17007/13/19 Sulfamethox-Tmp 800-160Mg [Bactrim DS 800-160 mg] 1 tab PO MOWEFR@1700 02/26/20 Levocetirizine Dihydrochloride [Xyzal] 5 mg PO DAILY 01/05/21 Vit C/E/Zn/Coppr/Lutein/Zeaxan [Preservision Areds 2 Softgel] 1 cap PO BID 04/28/21 Cholecalciferol [Vitamin D3 (25 Mcg = 1000 Iu)] 25 mcg PO DAILY@1700 09/07/21 Esomeprazole Magnesium [NexIUM 24Hr] 20 mg PO DAILY 09/07/21 Fluticasone Propionate [Flovent Diskus] 1 puff INHALATION RT-BID 09/07/21 Hydrocortisone [Cortef] 10 mg PO DAILY@1500 09/07/21 Hydrocortisone [Cortef] 15 mg PO DAILY 09/07/21 Ipratropium Nebulized [Atrovent Nebulized 0.2 MG/ML] 0.5 mg INHALATION RT-QID PRN 09/07/21 Linaclotide [Linzess] 290 mcg PO DAILY 09/07/21 Multivit-Min/Iron/Folic/Lutein [Centrum Silver Women Tablet] 1 tab PO DAILY@1700 09/07/21 Albuterol Sulfate [Albuterol Sulfate Hfa] 2 puff PO RT-Q6H PRN 11/12/22 Ascorbic Acid [Vitamin C chew] 500 mg PO DAILY 11/12/22 Benzonatate [Tessalon Perles] 100 mg PO TID PRN 11/12/22 Calcium Carbonate/Vitamin D3 [Caltrate 600 Plus D3 20 Mcg (800 Iu)] 1 tab PO BID@1500,2100 11/12/22 Fluticasone/Umeclidin/Vilanter [Trelegy Ellipta 200-62.5-25] 1 puff INHALATION QAM 11/12/22 Levothyroxine Sodium [Synthroid] 125 mcg PO QAM 11/12/22 Magnesium 200 mg PO DAILY@1500 11/12/22 Tezepelumab-Ekko [Tezspire] 210 mg SQ QMONTHLY 11/12/22 Ubidecarenone [Coenzyme Q10] 200 mg PO HS 11/12/22 polyethylene glycoL 3350 [Miralax] 17 gm PO DAILY PRN 11/12/22 Baclofen 10 mg PO BID 30 Days #60 tab 05/23/23 Clindamycin [Cleocin] 450 mg PO Q8H 7 Days #63 cap 07/01/23 Gabapentin 300 mg PO TID 30 Days #90 cap 08/15/23 oxyCODONE-APAP 10-325MG [Percocet 10-325 mg] 1 tab PO Q8HR PRN 30 Days #90 tab 08/15/23 oxyCODONE-APAP 10-325MG [Percocet 10-325 mg] 1 tab PO TID PRN 30 Days #90 tab 08/15/23 oxyCODONE-APAP 10-325MG [Percocet 10-325 mg] 1 tab PO TID PRN 30 Days #90 tab 08/15/23 Controlled Substance Measures - Controlled Substance Measures Is patient prescribed a controlled substance at discharge?: Yes When asked, does pt state using other controlled substances?: No If prescribed controlled substance>3 days was MAPS reviewed?: Yes
== END ==
LOC: PNWHC3 09:55
PROVIDERS: ATTEND Specialist
DX: G89.29 Other chronic pain (principal); M51.36 Other intervertebral disc degeneration, lumbar region; M47.816 Spondylosis without myelopathy or radiculopathy, lumbar region; Z79.891 Long term (current) use of opiate analgesic; Z87.891 Personal history of nicotine dependence; Z88.1 Allergy status to other antibiotic agents; Z88.0 Allergy status to penicillin; Z88.8 Allergy status to other drugs, medicaments and biological substances; Z91.018 Allergy to other foods
CPT/HCPCS: 99211

== ENCOUNTER → 2023-11-07 | Outpatient (CLI) | payer MEDICARE, BC ==
[2023-11-07 11:17] VITALS: BP 138/58; PULSE 77; RESP 16; TEMP 98.2
--- NOTE | 2023-11-07 14:24 | P.PAINPG ---
PQRS Measure Charge Sheet Comment: A 73 yr old wheelchair bound female w at side with a history of severe and chronic LBP since 2013 secondary to lumbar DDD and spondylosis with facet arthropathy without myelopathy presents today for medication refills. Pain level is provoked at 7 /10 in intensity, constant, localized in the lumbar spine, sharp in character w shooting towards the BLEs, L >R. Pain is provoked by standing/ walking for periods of 10-15 min, or bending. Pain is alleviated with medications, PT years ago but provoked pain, acupuncture in 2019 which was ineffective, heat, medications, topical, use of reclining posture-pedic bed, laying on her R side repositioning and rest. Interventional pain procedures completed include LESIs Patient is currently on Percocet 10/325mg, Neurontin, Baclofen Patient denies any side effects of the medication(s), denies excessive drowsiness or sleepiness, denies suicidal ideation and reports that the current pain medication is helping to control the pain and improve activities of daily living. Patient denies any motor or sensory deficits. Patient denies any fever or night sweats, denies any change in the bowel movements or urination. Physical Examination: -Constitutional: Cooperative. Not in acute distress . - Neurologic: Cranial nerve II to XII intact. No focal neurological deficits. - Psychatric: Alert & oriented x 3. Matching mood & appropriate affect. Judgment and insight intact. - Musculoskeletal: Cervical spine: Muscle bulk/ tone/ strength in the bilateral upper extremities normal Vertebral body tenderness to palpation over Spurling test positive Distraction test positive Facet loading test positive Thoracic spine Muscle bulk / tone/ strength in the bilateral paraspinal muscles normal Vertebral body tender to palpation over Facet loading test positive Lumbar spine: Motor bulk/ tone/ strength lower extremities , thigh and legs : 5/5 Deep tendon reflexes : Normal Knee Jerk. Normal Ankle Jerk . Vertebral body tenderness to palpation over L3, L4, L5 Lumbar Facet Loading Test positive Straight Leg Raise: positive at 30 degrees right side/ left side Gaenslen's Test positive Sacral spine : Severe tenderness over the Sacroiliac joint: right side / left side Range of motion: Flexion of the lumbar spine <60 degrees Range of motion: Extension of the lumbar spine <20 degrees Gaenslen's Test positive Ana test: positive right side / left side Thigh Thrust Test Sacral Thrust Test Assessment and plan: Chronic LBP secondary to lumbar DDD, spondylosis with facet arthropathy without myelopathy Chronic and current use of high-risk medication (Opioids). The patient was counseled about risk of opioid use, psychological risk associated with opioids and was orally counseled to not overuse , divert or sell medications. Pt is to store medication in a safe location. The patient is counseled against driving while using narcotic medications and also not to use alcohol or any illicit recreational drugs. Patient verbalized understanding that the lack of compliance will result in failure to renew narcotic prescription(s) as well as possible discharge from the clinic Diagnoses, prognosis and treatment options including but not limited to physical therapy, surgical interventions, interventional therapies and medication management including narcotics and adjuvant medication were discussed. All patient questions answered MAPS reviewed and it was appropriate. Blood tox screen fr 08/15/23 not completed. UDS to be collected 11/07/23. Prescription refill for Baclofen, Neurontin, Percocet 10/325mg # 90 w 2 RF. I have spent less than 30 minutes on patient care today. Dr Rubin was available by phone for the evaluation of this patient. The time was used to review the medical records including relevant urine studies and Prescription history (MAPs), review of the available imaging, evaluation and examination of the patient, coordination of care with the medical staff and if applicable referring physicians, as well as creation of the medical record PQRS Narrative: Smoking Status Former smoker Narcotic Agreement Date Signed 06/18/22 Hx Alcohol Use (MH) No Home Medications: Ambulatory Orders Rivaroxaban [Xarelto] 10 mg PO DAILY 08/27/17 Rosuvastatin Calcium [Crestor] 5 mg PO HS 06/27/18 Losartan Potassium 100 mg PO 169910/31/18 Vitamin C/Biotin [Hair, Skin and Nails Chew] 1 tab PO DAILY@1500 07/02/19 Denosumab [Prolia] 60 mg SQ Q180D 07/13/19 Diltiazem Cd [Cardizem CD] 240 mg PO DAILY@169907/13/19 Sulfamethox-Tmp 800-160Mg [Bactrim DS 800-160 mg] 1 tab PO MOWEFR@1700 02/26/20 Levocetirizine Dihydrochloride [Xyzal] 5 mg PO DAILY 01/05/21 Vit C/E/Zn/Coppr/Lutein/Zeaxan [Preservision Areds 2 Softgel] 1 cap PO BID 04/28/21 Cholecalciferol [Vitamin D3 (25 Mcg = 1000 Iu)] 25 mcg PO DAILY@1700 09/07/21 Esomeprazole Magnesium [NexIUM 24Hr] 20 mg PO DAILY 09/07/21 Fluticasone Propionate [Flovent Diskus] 1 puff INHALATION RT-BID 09/07/21 Hydrocortisone [Cortef] 10 mg PO DAILY@1500 09/07/21 Hydrocortisone [Cortef] 15 mg PO DAILY 09/07/21 Ipratropium Nebulized [Atrovent Nebulized 0.2 MG/ML] 0.5 mg INHALATION RT-QID PRN 09/07/21 Linaclotide [Linzess] 290 mcg PO DAILY 09/07/21 Multivit-Min/Iron/Folic/Lutein [Centrum Silver Women Tablet] 1 tab PO DAILY@1700 09/07/21 Albuterol Sulfate [Albuterol Sulfate Hfa] 2 puff PO RT-Q6H PRN 11/12/22 Ascorbic Acid [Vitamin C chew] 500 mg PO DAILY 11/12/22 Benzonatate [Tessalon Perles] 100 mg PO TID PRN 11/12/22 Calcium Carbonate/Vitamin D3 [Caltrate 600 Plus D3 20 Mcg (800 Iu)] 1 tab PO BID@1500,2100 11/12/22 Fluticasone/Umeclidin/Vilanter [Trelegy Ellipta 200-62.5-25] 1 puff INHALATION QAM 11/12/22 Levothyroxine Sodium [Synthroid] 125 mcg PO QAM 11/12/22 Magnesium 200 mg PO DAILY@1500 11/12/22 Tezepelumab-Ekko [Tezspire] 210 mg SQ QMONTHLY 11/12/22 Ubidecarenone [Coenzyme Q10] 200 mg PO HS 11/12/22 polyethylene glycoL 3350 [Miralax] 17 gm PO DAILY PRN 11/12/22 Clindamycin [Cleocin] 450 mg PO Q8H 7 Days #63 cap 07/01/23 Baclofen 10 mg PO BID 30 Days #60 tab 08/15/23 Gabapentin 300 mg PO TID 30 Days #90 cap 08/15/23 oxyCODONE-APAP 10-325MG [Percocet 10-325 mg] 1 tab PO Q8HR PRN 30 Days #90 tab 08/15/23 oxyCODONE-APAP 10-325MG [Percocet 10-325 mg] 1 tab PO TID PRN 30 Days #90 tab 08/15/23 oxyCODONE-APAP 10-325MG [Percocet 10-325 mg] 1 tab PO TID PRN 30 Days #90 tab 08/15/23 Controlled Substance Measures - Controlled Substance Measures Is patient prescribed a controlled substance at discharge?: Yes When asked, does pt state using other controlled substances?: No If prescribed controlled substance>3 days was MAPS reviewed?: Yes
== END ==
LOC: PNWHC3 10:35
PROVIDERS: ATTEND Specialist
DX: M51.36 Other intervertebral disc degeneration, lumbar region (principal); M47.816 Spondylosis without myelopathy or radiculopathy, lumbar region; G89.29 Other chronic pain; Z79.891 Long term (current) use of opiate analgesic; Z88.8 Allergy status to other drugs, medicaments and biological substances; Z88.0 Allergy status to penicillin; Z91.018 Allergy to other foods; Z88.1 Allergy status to other antibiotic agents
CPT/HCPCS: 80307; G0463; 99212

== ENCOUNTER → 2024-01-17 | Outpatient (CLI) | payer MEDICARE, BC ==
--- NOTE | 2024-01-17 10:49 | US ---
EXAMINATION TYPE: US venous doppler duplex LE LT DATE OF EXAM: 01/17/2024 10:32 AM COMPARISON: NONE CLINICAL INDICATION: Female, 73 years old with history of M79.605 PAIN IN L LEG; Left leg bruising. On blood thinners. Hx PE's with last one few years ago SIDE PERFORMED: Left TECHNIQUE: The lower extremity deep venous system is examined utilizing real time linear array sonog chanel with graded compression, doppler sonography and color-flow sonography. VESSELS IMAGED: Common Femoral Vein Deep Femoral Vein Greater Saphenous Vein * Femoral Vein Popliteal Vein Small Saphenous Vein * Proximal Calf Veins (* superficial vessels) Left Leg: Negative for DVT IMPRESSION: Grayscale, color doppler, spectral doppler imaging performed of the deep veins of the lo wer extremities. There is normal flow, compressibility, vascular waveforms.
== END | disposition home or self-care (01) ==
LOC: RADUSWWP 10:12
PROVIDERS: ATTEND Family Medicine
DX: M79.605 Pain in left leg (principal); Z79.01 Long term (current) use of anticoagulants; Z86.711 Personal history of pulmonary embolism

== ENCOUNTER → 2024-01-30 | Outpatient (CLI) | payer MEDICARE, BC ==
[2024-01-30 10:12] VITALS: BP 121/74; PULSE 76; RESP 16
--- NOTE | 2024-01-30 15:04 | P.PAINPG ---
PQRS Measure Charge Sheet Comment: A 73 yr old wheelchair bound female w at side with a history of severe and chronic LBP since 2013 secondary to lumbar DDD and spondylosis with facet arthropathy without myelopathy presents today for medication refills. Pain level is provoked at 7 /10 in intensity, constant, localized in the lumbar spine, sharp in character w shooting towards the BLEs, L >R. Pain is provoked by standing/ walking for periods of 10-15 min, or bending. Pain is alleviated with medications, PT years ago but provoked pain, acupuncture in 2019 which was ineffective, heat, medications, topical, use of reclining posture-pedic bed, laying on her R side repositioning and rest. Interventional pain procedures completed include LESIs Patient is currently on Percocet 10/325mg, Neurontin, Baclofen Patient denies any side effects of the medication(s), denies excessive drowsiness or sleepiness, denies suicidal ideation and reports that the current pain medication is helping to control the pain and improve activities of daily living. Patient denies any motor or sensory deficits. Patient denies any fever or night sweats, denies any change in the bowel movements or urination. Physical Examination: -Constitutional: Cooperative. Not in acute distress . - Neurologic: Cranial nerve II to XII intact. No focal neurological deficits. - Psychatric: Alert & oriented x 3. Matching mood & appropriate affect. Judgment and insight intact. - Musculoskeletal: Cervical spine: Muscle bulk/ tone/ strength in the bilateral upper extremities normal Vertebral body tenderness to palpation over Spurling test positive Distraction test positive Facet loading test positive Thoracic spine Muscle bulk / tone/ strength in the bilateral paraspinal muscles normal Vertebral body tender to palpation over Facet loading test positive Lumbar spine: Motor bulk/ tone/ strength lower extremities , thigh and legs : 5/5 Deep tendon reflexes : Normal Knee Jerk. Normal Ankle Jerk . Vertebral body tenderness to palpation over L3, L4, L5 Lumbar Facet Loading Test positive Straight Leg Raise: positive at 30 degrees right side/ left side Gaenslen's Test positive Sacral spine : Severe tenderness over the Sacroiliac joint: right side / left side Range of motion: Flexion of the lumbar spine <60 degrees Range of motion: Extension of the lumbar spine <20 degrees Gaenslen's Test positive Ana test: positive right side / left side Thigh Thrust Test Sacral Thrust Test Assessment and plan: Chronic LBP secondary to lumbar DDD, spondylosis with facet arthropathy without myelopathy Chronic and current use of high-risk medication (Opioids). The patient was counseled about risk of opioid use, psychological risk associated with opioids and was orally counseled to not overuse , divert or sell medications. Pt is to store medication in a safe location. The patient is counseled against driving while using narcotic medications and also not to use alcohol or any illicit recreational drugs. Patient verbalized understanding that the lack of compliance will result in failure to renew narcotic prescription(s) as well as possible discharge from the clinic Diagnoses, prognosis and treatment options including but not limited to physical therapy, surgical interventions, interventional therapies and medication management including narcotics and adjuvant medication were discussed. All patient questions answered MAPS reviewed and it was appropriate. UDS fr 11/07/23 reviewed and consistent. Prescription refill for Baclofen, Neurontin, Percocet 10/325mg # 90 w 2 RF. I have spent less than 30 minutes on patient care today. Dr Rubin was available by phone for the evaluation of this patient. The time was used to review the medical records including relevant urine studies and Prescription history (MAPs), review of the available imaging, evaluation and examination of the patient, coordination of care with the medical staff and if applicable referring physicians, as well as creation of the medical record PQRS Narrative: Smoking Status Former smoker Narcotic Agreement Date Signed 06/18/22 Hx Alcohol Use (MH) No Home Medications: Ambulatory Orders Rivaroxaban [Xarelto] 10 mg PO DAILY 08/27/17 Rosuvastatin Calcium [Crestor] 5 mg PO HS 06/27/18 Losartan Potassium 100 mg PO 169910/31/18 Vitamin C/Biotin [Hair, Skin and Nails Chew] 1 tab PO DAILY@1500 07/02/19 Denosumab [Prolia] 60 mg SQ Q180D 07/13/19 Diltiazem Cd [Cardizem CD] 240 mg PO DAILY@169907/13/19 Sulfamethox-Tmp 800-160Mg [Bactrim DS 800-160 mg] 1 tab PO MOWEFR@169902/26/20 Levocetirizine Dihydrochloride [Xyzal] 5 mg PO DAILY 01/05/21 Vit C/E/Zn/Coppr/Lutein/Zeaxan [Preservision Areds 2 Softgel] 1 cap PO BID 04/28/21 Cholecalciferol [Vitamin D3 (25 Mcg = 1000 Iu)] 25 mcg PO DAILY@1700 09/07/21 Esomeprazole Magnesium [NexIUM 24Hr] 20 mg PO DAILY 09/07/21 Fluticasone Propionate [Flovent Diskus] 1 puff INHALATION RT-BID 09/07/21 Hydrocortisone [Cortef] 10 mg PO DAILY@1500 09/07/21 Hydrocortisone [Cortef] 15 mg PO DAILY 09/07/21 Ipratropium Nebulized [Atrovent Nebulized 0.2 MG/ML] 0.5 mg INHALATION RT-QID PRN 09/07/21 Linaclotide [Linzess] 290 mcg PO DAILY 09/07/21 Multivit-Min/Iron/Folic/Lutein [Centrum Silver Women Tablet] 1 tab PO DAILY@1700 09/07/21 Albuterol Sulfate [Albuterol Sulfate Hfa] 2 puff PO RT-Q6H PRN 11/12/22 Ascorbic Acid [Vitamin C chew] 500 mg PO DAILY 11/12/22 Benzonatate [Tessalon Perles] 100 mg PO TID PRN 11/12/22 Calcium Carbonate/Vitamin D3 [Caltrate 600 Plus D3 20 Mcg (800 Iu)] 1 tab PO BID@1500,2100 11/12/22 Fluticasone/Umeclidin/Vilanter [Trelegy Ellipta 200-62.5-25] 1 puff INHALATION QAM 11/12/22 Levothyroxine Sodium [Synthroid] 125 mcg PO QAM 11/12/22 Magnesium 200 mg PO DAILY@1500 11/12/22 Tezepelumab-Ekko [Tezspire] 210 mg SQ QMONTHLY 11/12/22 Ubidecarenone [Coenzyme Q10] 200 mg PO HS 11/12/22 polyethylene glycoL 3350 [Miralax] 17 gm PO DAILY PRN 11/12/22 Clindamycin [Cleocin] 450 mg PO Q8H 7 Days #63 cap 07/01/23 Baclofen 10 mg PO BID 30 Days #60 tab 11/07/23 Gabapentin 300 mg PO TID 30 Days #90 cap 11/07/23 oxyCODONE-APAP 10-325MG [Percocet 10-325 mg] 1 tab PO Q8HR PRN 30 Days #90 tab 11/07/23 oxyCODONE-APAP 10-325MG [Percocet 10-325 mg] 1 tab PO TID PRN 30 Days #90 tab 11/07/23 oxyCODONE-APAP 10-325MG [Percocet 10-325 mg] 1 tab PO TID PRN 30 Days #90 tab 11/07/23 Controlled Substance Measures - Controlled Substance Measures Is patient prescribed a controlled substance at discharge?: Yes When asked, does pt state using other controlled substances?: No If prescribed controlled substance>3 days was MAPS reviewed?: Yes
== END ==
LOC: PNWHC3 09:03
PROVIDERS: ATTEND Specialist
DX: M54.50 Low back pain, unspecified (principal); M51.36 Other intervertebral disc degeneration, lumbar region; M47.816 Spondylosis without myelopathy or radiculopathy, lumbar region; G89.29 Other chronic pain; Z79.891 Long term (current) use of opiate analgesic; Z87.891 Personal history of nicotine dependence; Z88.8 Allergy status to other drugs, medicaments and biological substances; Z88.0 Allergy status to penicillin; Z91.018 Allergy to other foods; Z88.1 Allergy status to other antibiotic agents
CPT/HCPCS: 99211

== ENCOUNTER → 2024-03-17 | Outpatient (CLI) | payer MEDICARE, BC ==
--- NOTE | 2024-03-18 13:15 | MM ---
Reason for Exam: Screening (asymptomatic). Last mammogram was performed 1 year(s) and 1 month(s) ago. Patient History: Menarche at age 11. First Full-Term at age 30. Late child-bearing (after 30). Postmenopausal. Paternal aunt had breast cancer. Risk Values: Kavya 5 year model risk: 2.7%. NCI Lifetime model risk: 6.5%. Prior Study Comparison: 11/23/2020 Bilateral Screening Mammogram, [facility]. 01/30/2022 Bilateral Screening Mammogram, [facility]. 02/22/2023 Bilateral MG 3D screening mammo w/cad, [facility]. Tissue Density: The breasts are almost entirely fatty. Findings: Analyzed By CAD. There is no suspicious group of microcalcifications or new suspicious mass in either breast. Overall Assessment: Negative, BI-RAD 1 Management: Screening Mammogram of both breasts in 1 year. . Patient should continue monthly self-breast exams. A clinical breast exam by your physician is recommended on an annual basis. This exam should not preclude additional follow-up of suspicious palpable abnormalities. Note on Kavya scores and lifetime risk: 1. A Kavya score greater than 3% is considered moderate risk. If this is the case, consider specialist referral to assess eligibility for a risk reducing agent. 2. If overall lifetime risk for the development of breast cancer is 20% or higher, the patient may qualify for future screening with alternating mammogram and breast MRI. Electronically signed and approved by: Kojo Schmitz M.D. Radiologis
== END | disposition home or self-care (01) ==
LOC: RADMAMWWP 09:45
PROVIDERS: ATTEND Family Medicine
DX: Z12.31 Encounter for screening mammogram for malignant neoplasm of breast (principal); Z78.0 Asymptomatic menopausal state; Z80.3 Family history of malignant neoplasm of breast
CPT/HCPCS: 77063; 77067

== ENCOUNTER → 2024-03-17 | Outpatient (CLI) | payer MEDICARE, BC ==
--- NOTE | 2024-03-17 11:43 | BD ---
EXAMINATION TYPE: Axial Bone Density DATE OF EXAM: 03/17/2024 CLINICAL HISTORY: 73 years old Female. ICD-10 CODE: M81.0 AGE-RELATED OSTEOPOROSIS W/O CURRENT PATHO LO Height: 4 ft 10 3/4 in Weight: 243 FRAX RISK QUESTIONS: Alcohol (3 or more units per day): no Family History (Parent hip fracture): no Glucocorticoids (More than 3mos): no (Ex: prednisone, prednisolone, methylprednisolone, dexamethasone, and hydrocortisone). History of Fracture in Adulthood: yes Secondary Osteoporosis: 1. Type 1 Diabetes: no 2. Hyperthyroidism: no 3. Menopause before 45: yes 4. Malnutrition: no 5. Chronic liver disease: no Rheumatoid Arthritis: no Current Tobacco Use: no RISK FACTORS HISTORY OF: Surgery to Spine/Hip(right/left)/Wrist (right/left): no MEDICATIONS: Thyroid Medications: yes Which medication: levothyroxine How Lon years Osteoporosis Medications: none EXAM MEASUREMENTS: Bone mineral densitometry was performed using the [employer] System. Bone mineral density as measured about the Lumbar spine is: ----- L1-L4(G/cm2): 1.347 T Score Values are as follows: ----- L1: 0.5 ----- L2: 1.2 ----- L3: 1.6 ----- L4: 2.1 ----- L1-L4: 1.4 Z Score Values are as follows: ----- L1: 1.1 ----- L2: 1.8 ----- L3: 2.2 ----- L4: 2.6 ----- L1-L4: 1.9 Bone mineral density has: increased 2.9 % since study of: 2020 Bone mineral density about the R hip (g/cm2): 0.753 Bone mineral density about the L hip (g/cm2): 0.819 T Score values are as follows: -----R Neck: -2.1 -----L Neck: -1.6 -----R Total: -1.4 -----L Total: -1.0 Z Score values are as follows: -----R Neck: -1.0 -----L Neck: -0.5 -----R Total: -0.6 -----L Total: -0.2 Bone mineral density has: increased 2.9 % since study of: 2020 FRAX%s: The graph provided illustrates a 10.5 % chance for a major osteoporotic fx and a 2.3 % chance for the hips probability for fx in 10 years time. IMPRESSION: Normal (Values between +1 and -1 indicate normal bone mass). Consider repeating this study in 5 year s or sooner if there is some new clinical indication. NOTE: T-SCORE=SD OF THE YOUNG ADULT MEAN.
== END | disposition home or self-care (01) ==
LOC: RADBDWWP 09:47
PROVIDERS: ATTEND Internal Medicine Rheumatology
DX: M85.89 Other specified disorders of bone density and structure, multiple sites (principal); M81.0 Age-related osteoporosis without current pathological fracture; Z78.0 Asymptomatic menopausal state
CPT/HCPCS: 77080

== ENCOUNTER → 2024-04-23 | Outpatient (CLI) | payer MEDICARE, BC ==
[2024-04-23 10:25] VITALS: BP 119/56; PULSE 74; RESP 16
--- NOTE | 2024-04-23 14:12 | P.PAINPG ---
PQRS Measure Charge Sheet Comment: A 73 yr old wheelchair bound female w at side with a history of severe and chronic LBP since 2013 secondary to lumbar DDD and spondylosis with facet arthropathy without myelopathy presents today for medication refills. Pain level is provoked at 7 /10 in intensity, constant, localized in the lumbar spine, sharp in character w shooting towards the BLEs, L >R. Pain is provoked by standing/ walking for periods of 10-15 min, or bending. Pain is alleviated with medications, PT years ago but provoked pain, acupuncture in 2019 which was ineffective, heat, medications, topical, use of reclining posture-pedic bed, laying on her R side repositioning and rest. Interventional pain procedures completed include LESIs Patient is currently on Percocet 10/325mg, Neurontin, Baclofen Patient denies any side effects of the medication(s), denies excessive drowsiness or sleepiness, denies suicidal ideation and reports that the current pain medication is helping to control the pain and improve activities of daily living. Patient denies any motor or sensory deficits. Patient denies any fever or night sweats, denies any change in the bowel movements or urination. Physical Examination: -Constitutional: Cooperative. Not in acute distress . - Neurologic: Cranial nerve II to XII intact. No focal neurological deficits. - Psychatric: Alert & oriented x 3. Matching mood & appropriate affect. Judgment and insight intact. - Musculoskeletal: Cervical spine: Muscle bulk/ tone/ strength in the bilateral upper extremities normal Vertebral body tenderness to palpation over Spurling test positive Distraction test positive Facet loading test positive Thoracic spine Muscle bulk / tone/ strength in the bilateral paraspinal muscles normal Vertebral body tender to palpation over Facet loading test positive Lumbar spine: Motor bulk/ tone/ strength lower extremities , thigh and legs : 5/5 Deep tendon reflexes : Normal Knee Jerk. Normal Ankle Jerk . Vertebral body tenderness to palpation over L3, L4, L5 Lumbar Facet Loading Test positive Straight Leg Raise: positive at 30 degrees right side/ left side Gaenslen's Test positive Sacral spine : Severe tenderness over the Sacroiliac joint: right side / left side Range of motion: Flexion of the lumbar spine <60 degrees Range of motion: Extension of the lumbar spine <20 degrees Gaenslen's Test positive Ana test: positive right side / left side Thigh Thrust Test Sacral Thrust Test Assessment and plan: Chronic LBP secondary to lumbar DDD, spondylosis with facet arthropathy without myelopathy Chronic and current use of high-risk medication (Opioids). The patient was counseled about risk of opioid use, psychological risk associated with opioids and was orally counseled to not overuse , divert or sell medications. Pt is to store medication in a safe location. The patient is counseled against driving while using narcotic medications and also not to use alcohol or any illicit recreational drugs. Patient verbalized understanding that the lack of compliance will result in failure to renew narcotic prescription(s) as well as possible discharge from the clinic Diagnoses, prognosis and treatment options including but not limited to physical therapy, surgical interventions, interventional therapies and medication management including narcotics and adjuvant medication were discussed. All patient questions answered MAPS reviewed and it was appropriate. UDS fr 11/07/23 reviewed and consistent. Prescription refill for Baclofen, Neurontin, Percocet 10/325mg # 90 w 2 RF. I have spent less than 30 minutes on patient care today. Dr Rubin was available by phone for the evaluation of this patient. The time was used to review the medical records including relevant urine studies and Prescription history (MAPs), review of the available imaging, evaluation and examination of the patient, coordination of care with the medical staff and if applicable referring physicians, as well as creation of the medical record PQRS Narrative: Smoking Status Former smoker Narcotic Agreement Date Signed 06/18/22 Hx Alcohol Use (MH) No Home Medications: Ambulatory Orders Rivaroxaban [Xarelto] 10 mg PO DAILY 08/27/17 Rosuvastatin Calcium [Crestor] 5 mg PO HS 06/27/18 Losartan Potassium 100 mg PO 169910/31/18 Vitamin C/Biotin [Hair, Skin and Nails Chew] 1 tab PO DAILY@1500 07/02/19 Denosumab [Prolia] 60 mg SQ Q180D 07/13/19 Diltiazem Cd [Cardizem CD] 240 mg PO DAILY@169907/13/19 Sulfamethox-Tmp 800-160Mg [Bactrim DS 800-160 mg] 1 tab PO MOWEFR@169902/26/20 Levocetirizine Dihydrochloride [Xyzal] 5 mg PO DAILY 01/05/21 Vit C/E/Zn/Coppr/Lutein/Zeaxan [Preservision Areds 2 Softgel] 1 cap PO BID 04/28/21 Cholecalciferol [Vitamin D3 (25 Mcg = 1000 Iu)] 25 mcg PO DAILY@1700 09/07/21 Esomeprazole Magnesium [NexIUM 24Hr] 20 mg PO DAILY 09/07/21 Fluticasone Propionate [Flovent Diskus] 1 puff INHALATION RT-BID 09/07/21 Hydrocortisone [Cortef] 10 mg PO DAILY@1500 09/07/21 Hydrocortisone [Cortef] 15 mg PO DAILY 09/07/21 Ipratropium Nebulized [Atrovent Nebulized 0.2 MG/ML] 0.5 mg INHALATION RT-QID PRN 09/07/21 Linaclotide [Linzess] 290 mcg PO DAILY 09/07/21 Multivit-Min/Iron/Folic/Lutein [Centrum Silver Women Tablet] 1 tab PO DAILY@1700 09/07/21 Albuterol Sulfate [Albuterol Sulfate Hfa] 2 puff PO RT-Q6H PRN 11/12/22 Ascorbic Acid [Vitamin C chew] 500 mg PO DAILY 11/12/22 Benzonatate [Tessalon Perles] 100 mg PO TID PRN 11/12/22 Calcium Carbonate/Vitamin D3 [Caltrate 600 Plus D3 20 Mcg (800 Iu)] 1 tab PO BID@1500,2100 11/12/22 Fluticasone/Umeclidin/Vilanter [Trelegy Ellipta 200-62.5-25] 1 puff INHALATION QAM 11/12/22 Levothyroxine Sodium [Synthroid] 125 mcg PO QAM 11/12/22 Magnesium 200 mg PO DAILY@1500 11/12/22 Tezepelumab-Ekko [Tezspire] 210 mg SQ QMONTHLY 11/12/22 Ubidecarenone [Coenzyme Q10] 200 mg PO HS 11/12/22 polyethylene glycoL 3350 [Miralax] 17 gm PO DAILY PRN 11/12/22 Clindamycin [Cleocin] 450 mg PO Q8H 7 Days #63 cap 07/01/23 Gabapentin [Neurontin] 300 mg PO TID 30 Days #90 cap 04/01/24 Baclofen 10 mg PO BID 30 Days #60 tab 04/23/24 Gabapentin 300 mg PO TID 30 Days #90 cap 04/23/24 oxyCODONE-APAP 10-325MG [Percocet 10-325 mg] 1 tab PO Q8HR PRN 30 Days #90 tab 04/23/24 oxyCODONE-APAP 10-325MG [Percocet 10-325 mg] 1 tab PO TID PRN 30 Days #90 tab 04/23/24 oxyCODONE-APAP 10-325MG [Percocet 10-325 mg] 1 tab PO TID PRN 30 Days #90 tab 04/23/24 Controlled Substance Measures - Controlled Substance Measures Is patient prescribed a controlled substance at discharge?: Yes When asked, does pt state using other controlled substances?: No If prescribed controlled substance>3 days was MAPS reviewed?: Yes
== END ==
LOC: PNWHC3 09:59
PROVIDERS: ATTEND Specialist
DX: M51.37 Other intervertebral disc degeneration, lumbosacral region (principal); M47.816 Spondylosis without myelopathy or radiculopathy, lumbar region; Z79.891 Long term (current) use of opiate analgesic; Z87.891 Personal history of nicotine dependence; Z88.8 Allergy status to other drugs, medicaments and biological substances; Z88.0 Allergy status to penicillin; Z91.018 Allergy to other foods; Z88.1 Allergy status to other antibiotic agents
CPT/HCPCS: 99211

== ENCOUNTER → 2024-07-30 | Outpatient (CLI) | payer MEDICARE, BC ==
[2024-07-30 10:12] VITALS: BP 125/74; PULSE 80; RESP 16
--- NOTE | 2024-07-30 14:59 | P.PAINPG ---
Objective - Vital Signs Vital signs: Intake & Output 07/29/24 07/30/24 07/30/24 18:59 06:59 18:59 Weight 108.862 kg PQRS Measure Charge Sheet Comment: A 74 yr old wheelchair bound female w at side with a history of severe and chronic LBP since 2013 secondary to radiculopathy, spondylosis and facet arthropathy without myelopathy presents today for medication refills. Pain level is provoked at 7 /10 in intensity, constant, localized in the lumbar spine, sharp in character w shooting towards the BLEs, L >R. Pain is provoked by standing/ walking for periods of 10-15 min, or bending. Pain is alleviated with medications, PT years ago but provoked pain, acupuncture in 2019 which was ineffective, heat, medications, topical, use of reclining posture-pedic bed, laying on her R side repositioning and rest. Interventional pain procedures completed include LESIs Patient is currently on Percocet 10/325mg, Neurontin, Baclofen Patient denies any side effects of the medication(s), denies excessive drowsiness or sleepiness, denies suicidal ideation and reports that the current pain medication is helping to control the pain and improve activities of daily living. Patient denies any motor or sensory deficits. Patient denies any fever or night sweats, denies any change in the bowel movements or urination. Physical Examination: -Constitutional: Cooperative. Not in acute distress . - Neurologic: Cranial nerve II to XII intact. No focal neurological def icits. - Psychatric: Alert & oriented x 3. Matching mood & appropriate affect. Judgment and insight intact. - Musculoskeletal: Cervical spine: Muscle bulk/ tone/ strength in the bilateral upper extremities normal Vertebral body tenderness to palpation over Spurling test positive Distraction test positive Facet loading test positive Thoracic spine Muscle bulk / tone/ strength in the bilateral paraspinal muscles normal Vertebral body tender to palpation over Facet loading test positive Lumbar spine: Motor bulk/ tone/ strength lower extremities , thigh and legs : 5/5 Deep tendon reflexes : Normal Knee Jerk. Normal Ankle Jerk . Vertebral body tenderness to palpation over L3, L4, L5 Lumbar Facet Loading Test positive Straight Leg Raise: positive at 30 degrees right side/ left side Gaenslen's Test positive Sacral spine : Severe tenderness over the Sacroiliac joint: right side / left side Range of motion: Flexion of the lumbar spine <60 degrees Range of motion: Extension of the lumbar spine <20 degrees Gaenslen's Test positive Ana test: positive right side / left side Thigh Thrust Test Sacral Thrust Test Assessment and plan: Chronic LBP secondary to radiculopathy, spondylosis with facet arthropathy without myelopathy Chronic and current use of high-risk medication (Opioids). The patient was counseled about risk of opioid use, psychological risk associated with opioids and was orally counseled to not overuse , divert or sell medications. Pt is to store medication in a safe location. The patient is counseled against driving while using narcotic medications and also not to use alcohol or any illicit recreational drugs. Patient verbalized understanding that the lack of compliance will result in failure to renew narcotic prescription(s) as well as possible discharge from the clinic Diagnoses, prognosis and treatment options including but not limited to physical therapy, surgical interventions, interventional therapies and medication management including narcotics and adjuvant medication were discussed. All patient questions answered MAPS reviewed and it was appropriate. UDS collected 07/30/24. Opiate/ narcotic agreement renewed 07/30/24 . Prescription refill for Baclofen, Percocet 10/325mg # 90 w 2 RF. Neurontin already filled. I have spent less than 30 minutes on patient care today. Dr Rubin was available by phone for the evaluation of this patient. The time was used to review the medical records including relevant urine studies and Prescription history (MAPs), review of the available imaging, evaluation and examination of the patient, coordination of care with the medical staff and if applicable referring physicians, as well as creation of the medical record PQRS Narrative: Smoking Status Former smoker Narcotic Agreement Date Signed 06/18/22 Hx Alcohol Use (MH) No Home Medications: Ambulatory Orders Rivaroxaban [Xarelto] 10 mg PO DAILY 08/27/17 Rosuvastatin Calcium [Crestor] 5 mg PO HS 06/27/18 Losartan Potassium 100 mg PO 1700 10/31/18 Vitamin C/Biotin [Hair, Skin and Nails Chew] 1 tab PO DAILY@1500 07/02/19 Denosumab [Prolia] 60 mg SQ Q180D 07/13/19 Diltiazem Cd [Cardizem CD] 240 mg PO DAILY@1700 07/13/19 Sulfamethox-Tmp 800-160Mg [Bactrim DS 800-160 mg] 1 tab PO MOWEFR@1700 02/26/20 Levocetirizine Dihydrochloride [Xyzal] 5 mg PO DAILY 01/05/21 Vit C/E/Zn/Coppr/Lutein/Zeaxan [Preservision Areds 2 Softgel] 1 cap PO BID 04/28/21 Cholecalciferol [Vitamin D3 (25 Mcg = 1000 Iu)] 25 mcg PO DAILY@1700 09/07/21 Esomeprazole Magnesium [NexIUM 24Hr] 20 mg PO DAILY 09/07/21 Fluticasone Propionate [Flovent Diskus] 1 puff INHALATION RT-BID 09/07/21 Hydrocortisone [Cortef] 10 mg PO DAILY@1500 09/07/21 Hydrocortisone [Cortef] 15 mg PO DAILY 09/07/21 Ipratropium Nebulized [Atrovent Nebulized 0.2 MG/ML] 0.5 mg INHALATION RT-QID PRN 09/07/21 Linaclotide [Linzess] 290 mcg PO DAILY 09/07/21 Multivit-Min/Iron/Folic/Lutein [Centrum Silver Women Tablet] 1 tab PO DAILY@1700 09/07/21 Albuterol Sulfate [Albuterol Sulfate Hfa] 2 puff PO RT-Q6H PRN 11/12/22 Ascorbic Acid [Vitamin C chew] 500 mg PO DAILY 11/12/22 Benzonatate [Tessalon Perles] 100 mg PO TID PRN 11/12/22 Calcium Carbonate/Vitamin D3 [Caltrate 600 Plus D3 20 Mcg (800 Iu)] 1 tab PO BID@1500,2100 11/12/22 Fluticasone/Umeclidin/Vilanter [Trelegy Ellipta 200-62.5-25] 1 puff INHALATION QAM 11/12/22 Levothyroxine Sodium [Synthroid] 125 mcg PO QAM 11/12/22 Magnesium 200 mg PO DAILY@1500 11/12/22 Tezepelumab-Ekko [Tezspire] 210 mg SQ QMONTHLY 11/12/22 Ubidecarenone [Coenzyme Q10] 200 mg PO HS 11/12/22 polyethylene glycoL 3350 [Miralax] 17 gm PO DAILY PRN 11/12/22 Clindamycin [Cleocin] 450 mg PO Q8H 7 Days #63 cap 07/01/23 Baclofen 10 mg PO BID 30 Days #60 tab 04/23/24 Gabapentin 300 mg PO TID 30 Days #90 cap 04/23/24 oxyCODONE-APAP 10-325MG [Percocet 10-325 mg] 1 tab PO Q8HR PRN 30 Days #90 tab 04/23/24 oxyCODONE-APAP 10-325MG [Percocet 10-325 mg] 1 tab PO TID PRN 30 Days #90 tab 04/23/24 oxyCODONE-APAP 10-325MG [Percocet 10-325 mg] 1 tab PO TID PRN 30 Days #90 tab 04/23/24 Gabapentin [Neurontin] 300 mg PO TID 30 Days #90 cap 07/29/24 Controlled Substance Measures - Controlled Substance Measures Is patient prescribed a controlled substance at discharge?: Yes When asked, does pt state using other controlled substances?: No If prescribed controlled substance>3 days was MAPS reviewed?: Yes
[2024-07-31 09:22] LABS: Serum Amphetamine Negative; Serum Barbiturates Negative; Serum Benzodiazepine Negative; Serum Cocaine Negative; Serum Methadone Negative; Serum Opiates Negative; Serum Phencyclidine Negative; Serum Propoxyphene Negative; Serum THC (Cannabis) Negative
== END ==
LOC: PNWHC3 09:51
PROVIDERS: ATTEND Specialist
CPT/HCPCS: 80307; 99211

== ENCOUNTER → 2024-10-22 | Outpatient (CLI) | payer MEDICARE, BC ==
[2024-10-22 10:23] VITALS: BP 125/81; PULSE 79; RESP 16; TEMP 97.1
--- NOTE | 2024-10-22 14:30 | P.PAINPG ---
Objective - Vital Signs Vital signs: Intake & Output 10/21/24 10/22/24 10/22/24 18:59 06:59 18:59 Weight 99.79 kg PQRS Measure Charge Sheet Comment: A 74 yr old wheelchair bound female w at side with a history of severe and chronic LBP since 2013 secondary to radiculopathy, spondylosis and facet arthropathy without myelopathy presents today for medication refills. Pain level is provoked at 7 /10 in intensity, constant, localized in the lumbar spine, throbbing in character w shooting towards the BLEs, L >R. Pain is provoked by standing/ walking for periods of 10-15 min, or bending. Pain is alleviated with medications, PT years ago but provoked pain, acupuncture in 2019 which was ineffective, heat, medications, topical, use of reclining posture-pedic bed, laying on her R side repositioning and rest. Interventional pain procedures completed include LESIs Patient is currently on Percocet 10/325mg, Neurontin, Baclofen Patient denies any side effects of the medication(s), denies excessive drowsiness or sleepiness, denies suicidal ideation and reports that the current pain medication is helping to control the pain and improve activities of daily living. Patient denies any motor or sensory deficits. Patient denies any fever or night sweats, denies any change in the bowel movements or urination. Physical Examination: -Constitutional: Cooperative. Not in acute distress . - Neurologic: Cranial nerve II to XII intact. No focal neurological d eficits. - Psychatric: Alert & oriented x 3. Matching mood & appropriate affect. Judgment and insight intact. - Musculoskeletal: Cervical spine: Muscle bulk/ tone/ strength in the bilateral upper extremities normal Vertebral body tenderness to palpation over Spurling test positive Distraction test positive Facet loading test positive Thoracic spine Muscle bulk / tone/ strength in the bilateral paraspinal muscles normal Vertebral body tender to palpation over Facet loading test positive Lumbar spine: Motor bulk/ tone/ strength lower extremities , thigh and legs : 5/5 Deep tendon reflexes : Normal Knee Jerk. Normal Ankle Jerk . Vertebral body tenderness to palpation over L3, L4, L5 Lumbar Facet Loading Test positive Straight Leg Raise: positive at 30 degrees right side/ left side Gaenslen's Test positive Sacral spine : Severe tenderness over the Sacroiliac joint: right side / left side Range of motion: Flexion of the lumbar spine <60 degrees Range of motion: Extension of the lumbar spine <20 degrees Gaenslen's Test positive Ana test: positive right side / left side Thigh Thrust Test Sacral Thrust Test Assessment and plan: Chronic LBP secondary to radiculopathy, spondylosis with facet arthropathy without myelopathy Chronic and current use of high-risk medication (Opioids). The patient was counseled about risk of opioid use, psychological risk associated with opioids and was orally counseled to not overuse , divert or sell medications. Pt is to store medication in a safe location. The patient is counseled against driving while using narcotic medications and also not to use alcohol or any illicit recreational drugs. Patient verbalized understanding that the lack of compliance will result in failure to renew narcotic prescription(s) as well as possible discharge from the clinic Diagnoses, prognosis and treatment options including but not limited to physical therapy, surgical interventions, interventional therapies and medication management including narcotics and adjuvant medication were discussed. All patient questions answered MAPS reviewed and it was appropriate. Blood drug screen 07/30/24 NEG for medications prescribed. Will check UDS 10/22/24. Opiate/ narcotic agreement renewed 07/30/24 . Prescription refill for Baclofen, Percocet 10/325mg # 90 w 2 RF. Neurontin already filled. I have spent less than 30 minutes on patient care today. Dr Rubin was available by phone for the evaluation of this patient. The time was used to review the medical records including relevant urine studies and Prescription history (MAPs), review of the available imaging, evaluation and examination of the patient, coordination of care with the medical staff and if applicable refe rring physicians, as well as creation of the medical record - Pain Location Bilateral Lower Back Non-Pharmacological Interventions: Heat, Inactivity, Physical Therapy, Position/Reposition, Sitting Pharmacological Interventions: PRN Medication, Scheduled Medication, Topical Medication PQRS Narrative: Smoking Status Former smoker Narcotic Agreement Date Signed 07/30/24 Hx Alcohol Use (MH) No Home Medications: Ambulatory Orders Rivaroxaban [Xarelto] 10 mg PO DAILY 08/27/17 Rosuvastatin Calcium [Crestor] 5 mg PO HS 06/27/18 Losartan Potassium 100 mg PO 1700 10/31/18 Vitamin C/Biotin [Hair, Skin and Nails Chew] 1 tab PO DAILY@1500 07/02/19 Denosumab [Prolia] 60 mg SQ Q180D 07/13/19 Diltiazem Cd [Cardizem CD] 240 mg PO DAILY@1700 07/13/19 Sulfamethox-Tmp 800-160Mg [Bactrim DS 800-160 mg] 1 tab PO MOWEFR@1700 02/26/20 Levocetirizine Dihydrochloride [Xyzal] 5 mg PO DAILY 01/05/21 Vit C/E/Zn/Coppr/Lutein/Zeaxan [Preservision Areds 2 Softgel] 1 cap PO BID 04/28/21 Cholecalciferol [Vitamin D3 (25 Mcg = 1000 Iu)] 25 mcg PO DAILY@1700 09/07/21 Esomeprazole Magnesium [NexIUM 24Hr] 20 mg PO DAILY 09/07/21 Fluticasone Propionate [Flovent Diskus] 1 puff INHALATION RT-BID 09/07/21 Hydrocortisone [Cortef] 10 mg PO DAILY@1500 09/07/21 Hydrocortisone [Cortef] 15 mg PO DAILY 09/07/21 Ipratropium Nebulized [Atrovent Nebulized 0.2 MG/ML] 0.5 mg INHALATION RT-QID PRN 09/07/21 Linaclotide [Linzess] 290 mcg PO DAILY 09/07/21 Multivit-Min/Iron/Folic/Lutein [Centrum Silver Women Tablet] 1 tab PO DAILY@1700 09/07/21 Albuterol Sulfate [Albuterol Sulfate Hfa] 2 puff PO RT-Q6H PRN 11/12/22 Ascorbic Acid [Vitamin C chew] 500 mg PO DAILY 11/12/22 Benzonatate [Tessalon Perles] 100 mg PO TID PRN 11/12/22 Calcium Carbonate/Vitamin D3 [Caltrate 600 Plus D3 20 Mcg (800 Iu)] 1 tab PO BID@1500,2100 11/12/22 Fluticasone/Umeclidin/Vilanter [Trelegy Ellipta 200-62.5-25] 1 puff INHALATION QAM 11/12/22 Levothyroxine Sodium [Synthroid] 125 mcg PO QAM 11/12/22 Magnesium 200 mg PO DAILY@1500 11/12/22 Tezepelumab-Ekko [Tezspire] 210 mg SQ QMONTHLY 02/06/23 Ubidecarenone [Coenzyme Q10] 200 mg PO HS 11/12/22 polyethylene glycoL 3350 [Miralax] 17 gm PO DAILY PRN 11/12/22 Clindamycin [Cleocin] 450 mg PO Q8H 7 Days #63 cap 07/01/23 Baclofen 10 mg PO BID 30 Days #60 tab 10/22/24 Gabapentin [Neurontin] 300 mg PO TID 30 Days #90 cap 10/22/24 oxyCODONE-APAP 10-325MG [Percocet 10-325 mg] 1 tab PO Q8HR PRN 30 Days #90 tab 10/22/24 oxyCODONE-APAP 10-325MG [Percocet 10-325 mg] 1 tab PO TID PRN 30 Days #90 tab 10/22/24 oxyCODONE-APAP 10-325MG [Percocet 10-325 mg] 1 tab PO TID PRN 30 Days #90 tab 10/22/24 Controlled Substance Measures - Controlled Substance Measures Is patient prescribed a controlled substance at discharge?: Yes When asked, does pt state using other controlled substances?: No If prescribed controlled substance>3 days was MAPS reviewed?: Yes
== END ==
LOC: PNWHC3 09:56
PROVIDERS: ATTEND Specialist
DX: M47.26 Other spondylosis with radiculopathy, lumbar region (principal); Z79.891 Long term (current) use of opiate analgesic; Z88.0 Allergy status to penicillin; Z91.018 Allergy to other foods; Z88.8 Allergy status to other drugs, medicaments and biological substances; Z87.891 Personal history of nicotine dependence
CPT/HCPCS: 80307; G0463; 99212

== ENCOUNTER 2024-11-10 19:42 | Emergency (ER) | payer MEDICARE, BC ==
--- NOTE | 2024-11-10 19:58 | ED ---
Extremity Problem HPI - General Chief complaint: Extremity Problem,Nontraumatic Stated complaint: R Leg Swollen-sent by alexander Time Seen by Provider: 11/10/24 19:44 Source: patient, RN notes reviewed Mode of arrival: wheelchair Limitations: no limitations - History of Present Illness Initial comments: This is a 74-year-old female who presents to the emergency department for right leg swelling. States that around 3 PM today she noticed swelling in her right lower extremity. She went to urgent care and was advised to come here to rule out a blood clot. Reports a history of a PE and is taking Xarelto. Denies any injuries to this area. It is only painful to the touch and she denies any difficulty with ambulation. - Related Data Home Medications Medication Instructions Recorded Confirmed Rivaroxaban [Xarelto] 10 mg PO DAILY 08/27/17 10/22/24 Rosuvastatin Calcium [Crestor] 5 mg PO HS 06/27/18 10/22/24 Losartan Potassium 100 mg PO 1700 10/31/18 10/22/24 Vitamin C/Biotin [Hair, Skin and 1 tab PO DAILY@1500 07/02/19 10/22/24 Nails Chew] Denosumab [Prolia] 60 mg SQ Q180D 07/13/19 10/22/24 Diltiazem Cd [Cardizem CD] 240 mg PO DAILY@1700 07/13/19 10/22/24 Sulfamethox-Tmp 800-160Mg [Bactrim 1 tab PO MOWEFR@1700 02/26/20 10/22/24 DS 800-160 mg] Levocetirizine Dihydrochloride 5 mg PO DAILY 01/05/21 10/22/24 [Xyzal] Vit C/E/Zn/Coppr/Lutein/Zeaxan 1 cap PO BID 04/28/21 10/22/24 [Preservision Areds 2 Softgel] Cholecalciferol [Vitamin D3 (25 25 mcg PO DAILY@1700 09/07/21 10/22/24 Mcg = 1000 Iu)] Esomeprazole Magnesium [NexIUM 20 mg PO DAILY 09/07/21 10/22/24 24Hr] Fluticasone Propionate [Flovent 1 puff INHALATION RT-BID 09/07/21 10/22/24 Diskus] Hydrocortisone [Cortef] 10 mg PO DAILY@1500 09/07/21 10/22/24 Hydrocortisone [Cortef] 15 mg PO DAILY 09/07/21 10/22/24 Ipratropium Nebulized [Atrovent 0.5 mg INHALATION RT-QID PRN 09/07/21 10/22/24 Nebulized 0.2 MG/ML] Linaclotide [Linzess] 290 mcg PO DAILY 09/07/21 10/22/24 Multivit-Min/Iron/Folic/Lutein 1 tab PO DAILY@1700 09/07/21 10/22/24 [Centrum Silver Women Tablet] Albuterol Sulfate [Albuterol 2 puff PO RT-Q6H PRN 11/12/22 10/22/24 Sulfate Hfa] Ascorbic Acid [Vitamin C chew] 500 mg PO DAILY 11/12/22 10/22/24 Benzonatate [Tessalon Perles] 100 mg PO TID PRN 11/12/22 10/22/24 Calcium Carbonate/Vitamin D3 1 tab PO BID@1500,2100 11/12/22 10/22/24 [Caltrate 600 Plus D3 20 Mcg (800 Iu)] Fluticasone/Umeclidin/Vilanter 1 puff INHALATION QAM 11/12/22 10/22/24 [Trelegy Ellipta 200-62.5-25] Levothyroxine Sodium [Synthroid] 125 mcg PO QAM 11/12/22 10/22/24 Magnesium 200 mg PO DAILY@1500 11/12/22 10/22/24 Tezepelumab-Ekko [Tezspire] 210 mg SQ QMONTHLY 11/12/22 10/22/24 Ubidecarenone [Coenzyme Q10] 200 mg PO HS 11/12/22 10/22/24 polyethylene glycoL 3350 [Miralax] 17 gm PO DAILY PRN 11/12/22 10/22/24 Previous Rx's Medication Instructions Recorded Clindamycin [Cleocin] 450 mg PO Q8H 7 Days #63 cap 07/01/23 Baclofen 10 mg PO BID 30 Days #60 tab 10/22/24 Gabapentin [Neurontin] 300 mg PO TID 30 Days #90 cap 10/22/24 oxyCODONE-APAP 10-325MG [Percocet 1 tab PO Q8HR PRN 30 Days #90 tab 10/22/24 10-325 mg] oxyCODONE-APAP 10-325MG [Percocet 1 tab PO TID PRN 30 Days #90 tab 10/22/24 10-325 mg] oxyCODONE-APAP 10-325MG [Percocet 1 tab PO TID PRN 30 Days #90 tab 10/22/24 10-325 mg] oxyCODONE HCL/ACETAMINOPHEN 1 tab PO Q8HR 25 Days #75 tab 11/03/24 [Percocet 10-325 mg] Allergies Allergy/AdvReac Type Severity Reaction Status Date / Time cefuroxime axetil Allergy Dyspnea Verified 11/10/24 20:51 [From Ceftin] moxifloxacin HCl Allergy Dyspnea Verified 11/10/24 20:51 [From Avelox] Penicillins Allergy Dyspnea Verified 11/10/24 20:51 rofecoxib [From Vioxx] Allergy Dyspnea Verified 11/10/24 20:51 blackberry Allergy Rash/Hives Uncoded 11/10/24 20:51 Review of Systems ROS Statement: Those systems with pertinent positive or pertinent negative responses have been documented in the HPI. ROS Other: All systems not noted in ROS Statement are negative. 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 lymphodema. History of Any Multi-Drug Resistant Organisms: None Reported Past Surgical History: Section, Cholecystectomy, Heart Catheterization, Orthopedic Surgery, Tonsillectomy Additional Past Surgical History / Comment(s): RIGHT CARPAL TUNNEL RELEASE ON 04/22/20. R ankle plate/screws, L wrist carpal tunnel release, multiple bronchoscopies, bronchial thermoplasty x3, EGDs, colonoscopies/polypectomy, deviated septal surgery, [facility] pain clinic procedures, PICC/later removed, bilateral cataract removals/lens implants. Past Anesthesia/Blood Transfusion Reactions: Family History of Problems w/ Anesthesia, Postoperative Nausea & Vomiting (PONV) Additional Past Anesthesia/Blood Transfusion Reaction / Comment(s): Pt has never received blood. Occ nausea. DAUGHTER PONV Smoking Status: Former smoker - Past Family History Father Family Medical History: Cancer Additional Family Medical History / Comment(s): Colon cancer. Mother Family Medical History: Congestive Heart Failure (CHF), COPD Additional Family Medical History / Comment(s): Mother lived to be 80 yrs old. Daughter(s) Family Medical History: Deep Vein Thrombosis (DVT) General Exam Limitations: no limitations General appearance: alert, in no apparent distress Head exam: Present: atraumatic, normocephalic, normal inspection Respiratory exam: Present: normal lung sounds bilaterally. Absent: respiratory distress, wheezes, rales, rhonchi, stridor Cardiovascular Exam: Present: regular rate, normal rhythm, normal heart sounds. Absent: systolic murmur, diastolic murmur, rubs, gallop, clicks Extremities exam: Present: other (Tender palpable lump in the distal aspect of the right lower extremity. No erythema or increased warmth. 2+ DP and PT pulses) Neurological exam: Present: alert, oriented X3, CN II-XII intact Psychiatric exam: Present: normal affect, normal mood Course Vital Signs 11/10/24 11/10/24 11/10/24 20:46 23:11 23:15 Temperature 99 F 98.7 F Pulse Rate 99 80 Respiratory 18 20 Rate Blood Pressure 145/75 131/69 O2 Sat by Pulse 93 L 96 Oximetry Medical Decision Making - Medical Decision Making This is a 74-year-old female who presents to the emergency department for right lower extremity pain and swelling. Was pt. sent in by a medical professional or institution? @ -Urgent care Did you speak to anyone other than the patient for history? @ -No Did you review nursing and triage notes? @ -Yes, and I agree, it is accurate with regards to the patient's symptoms. Were old charts reviewed? @ -No Differential Diagnosis? @ -Differential Musculoskeletal Muscular strain, contusion, ligament sprain, fracture, arthritis, septic arthrit is, bursitis, cellulitis, muscle spasm, nerve compression, DVT, arterial occlusion, herpes zoster, electrolyte abnormality, tumor.... This is not meant to be in all inclusive list EKG interpreted by me (3pts min.)? @ -Not obtained X-rays interpreted by me (1pt min.)? @ -Not obtained CT interpreted by me (1pt min.)? @ -Not obtained U/S interpreted by me (1pt. min.)? @ -Duplex ultrasound of the right lower extremity obtained. My interpretation identifies no evidence of a DVT. What testing was considered but not performed? (CT, X-rays, U/S, labs)? Why? @ -None What meds were considered but not given? Why? @ -None Did you discuss the management of the patient with other professionals? @ -No Did you reconcile home meds? @ -No Was smoking cessation discussed for >3mins.? @ -No Was critical care preformed (if so, how long)? @ -No Were there social determinants of health that impacted care today? How? (Homelessness, low income, unemployed, alcoholism, drug addiction, transportation, low edu. Level, literacy, decrease access to med. care, shelter, rehab)? @ -No Was there de-escalation of care discussed even if they declined? (Discuss DNR or withdrawal of care, Hospice)? @ -No What co-morbidities impacted this encounter? (DM, HTN, Smoking, COPD, CAD, Cancer, CVA, Hep., AIDS, mental health diagnosis, sleep apnea, morbid obesity)? @ -Hx of PE Was patient admitted / discharged? @ -Discharged. Duplex ultrasound of the right lower extremity obtained revealing no signs of a DVT. There is a complex hypoechoic area consistent with a hematoma. Patient denies any injuries. States that this is only painful to the touch. Denies any difficulty with ambulation. Advised elevation and compression for management of this. Otherwise advised follow-up with her PCP. Patient discharged home in stable condition. Case discussed with ED attending Dr. Gaona. Return precautions reviewed in depth, the patient is instructed to return to the emergency department with any new, worsening, or concerning symptoms. Patient verbalized understanding. Undiagnosed new problem with uncertain prognosis? @ -None Drug Therapy requiring intensive monitoring for toxicity (Heparin, Nitro, Insulin, Cardizem)? @ -None Were any procedures done? @ -None Diagnosis/symptom? @ -Right lower extremity hematoma Acute, or Chronic, or Acute on Chronic? @ -Acute Uncomplicated (without systemic symptoms) or Complicated (systemic symptoms)? @ -Uncomplicated Side effects of treatment? @ -None Exacerbation, Progression, or Severe Exacerbation] @ -Not applicable Poses a threat to life or bodily function? @ -No - Radiology Data Radiology results: report reviewed, image reviewed Disposition Clinical Impression: Hematoma of right ankle Disposition: HOME SELF-CARE Instructions (If sedation given, give patient instructions): Hematoma (ED) Additional Instructions: Return to the emergency department with any new, worsening, or concerning symptoms. Elevate the leg and apply warm compresses. Use something like an Junior bandage for compression of this area as well. Follow up with your primary care provider in 1-2 days. Is patient prescribed a controlled substance at d/c from ED?: No Referrals: Laurent Gramajo DO [Primary Care Provider] - 1-2 days Time of Disposition: 23:01
--- NOTE | 2024-11-10 22:31 | US ---
EXAMINATION TYPE: US venous doppler duplex LE RT DATE OF EXAM: 11/10/2024 9:30 PM COMPARISON: NONE CLINICAL INDICATION: Female, 74 years old with history of Right leg pain and swelling; patient states rt leg swelling and pain. hx PE. on thinners, Pain TECHNIQUE: The lower extremity deep venous system is examined utilizing real time linear array sonog chanel with graded compression, color doppler sonography, and spectral doppler. SIDE PERFORMED: Right FINDINGS: VESSELS IMAGED: Common Femoral Vein Deep Femoral Vein Greater Saphenous Vein * Femoral Vein Popliteal Vein Small Saphenous Vein * Proximal Calf Veins (* superficial vessels) Right Leg: Appears negative for dvt, Color Doppler imaging shows patency of the vessels. Spectral wa veforms are within normal limits. At patients area of concern (right lateral ankle) there is a 3.9 x 1.2 x 4.2cm avascular complex ar ea. Consider hematoma within the differential IMPRESSION: 1. Right lower extremity ultrasound negative for deep venous thrombosis. 2. Complex hypoechoic area within the right ankle and area of concern, consider hematoma within the d ifferential. [facility], Workstation: [id number], 11/10/2024 10:29 PM
[2024-11-10 23:16] VITALS: BP 131/69; PULSE 80; RESP 20; TEMP 98.7
== END 2024-11-10 23:17 | disposition home or self-care (01) ==
LOC: EC 19:42
DX: S90.01XA Contusion of right ankle, initial encounter (principal); Z86.711 Personal history of pulmonary embolism; Z87.891 Personal history of nicotine dependence; Z88.0 Allergy status to penicillin; Z88.1 Allergy status to other antibiotic agents; Z88.6 Allergy status to analgesic agent; Z91.018 Allergy to other foods; Z88.8 Allergy status to other drugs, medicaments and biological substances; X58.XXXA Exposure to other specified factors, initial encounter
CPT/HCPCS: 99284

== ENCOUNTER → 2025-01-21 | Outpatient (CLI) | payer MEDICARE, BC ==
[2025-01-21 11:43] VITALS: BP 112/72; PULSE 82; RESP 16
--- NOTE | 2025-01-21 15:16 | P.PAINPG ---
PQRS Measure Charge Sheet Comment: A 74 yr old wheelchair bound female w at side with a history of severe and chronic LBP since 2014 secondary to radiculopathy, spondylosis and facet arthropathy without myelopathy presents today for medication refills. Pain level is provoked at 7 /10 in intensity, constant, localized in the lumbar spine, throbbing in character w shooting towards the BLEs, L >R. Pain is provoked by standing/ walking for periods of 10-15 min, or bending. Pain is alleviated with medications, PT years ago but provoked pain, acupuncture in 2019 which was ineffective, heat, medications, topical, use of reclining posture-pedic bed, laying on her R side repositioning and rest. Interventional pain procedures completed include LESIs Patient is currently on Percocet 10/325mg, Neurontin, Baclofen Patient denies any side effects of the medication(s), denies excessive drowsiness or sleepiness, denies suicidal ideation and reports that the current pain medication is helping to control the pain and improve activities of daily living. Patient denies any motor or sensory deficits. Patient denies any fever or night sweats, denies any change in the bowel movements or urination. Physical Examination: -Constitutional: Cooperative. Not in acute distress . - Neurologic: Cranial nerve II to XII intact. No focal neurological deficits. - Psychatric: Alert & oriented x 3. Matching mood & appropriate affect. Judgment and insight intact. - Musculoskeletal: Cervical spine: Muscle bulk/ tone/ strength in the bilateral upper extremities normal Vertebral body tenderness to palpation over Spurling test positive Distraction test positive Facet loading test positive Thoracic spine Muscle bulk / tone/ strength in the bilateral paraspinal muscles normal Vertebral body tender to palpation over Facet loading test positive Lumbar spine: Motor bulk/ tone/ strength lower extremities , thigh and legs : 5/5 Deep tendon reflexes : Normal Knee Jerk. Normal Ankle Jerk . Vertebral body tenderness to palpation over L3, L4, L5 Lumbar Facet Loading Test positive Straight Leg Raise: positive at 30 degrees right side/ left side Gaenslen's Test positive Sacral spine : Severe tenderness over the Sacroiliac joint: right side / left side Range of motion: Flexion of the lumbar spine <60 degrees Range of motion: Extension of the lumbar spine <20 degrees Gaenslen's Test positive Ana test: positive right side / left side Thigh Thrust Test Sacral Thrust Test Assessment and plan: Chronic LBP secondary to radiculopathy, spondylosis with facet arthropathy without myelopathy Chronic and current use of high-risk medication (Opioids). The patient was counseled about risk of opioid use, psychological risk associated with opioids and was orally counseled to not overuse , divert or sell medications. Pt is to store medication in a safe location. The patient is counseled against driving while using narcotic medications and also not to use alcohol or any illicit recreational drugs. Patient verbalized understanding that the lack of compliance will result in failure to renew narcotic prescription(s) as well as possible discharge from the clinic Diagnoses, prognosis and treatment options including but not limited to physical therapy, surgical interventions, interventional therapies and medication management including narcotics and adjuvant medication were discussed. All patient questions answered .MAPS reviewed and it was appropriate. UDS 10/22/24 reviewed and consistent. Opiate/ narcotic agreement renewed 07/30/24 . Prescription refill for Baclofen, Percocet 10/325mg # 90 w 2 RF. Neurontin already filled. I have spent less than 30 minutes on patient care today. Dr Rubin was available by phone for the evaluation of this patient. The time was used to review the medical records including relevant urine studies and Prescription history (MAPs), review of the available imaging, evaluation and examination of the patient, coordination of care with the medical staff and if applicable referring physicians, as well as creation of the medical record PQRS Narrative: Smoking Status Former smoker Narcotic Agreement Date Signed 07/30/24 Hx Alcohol Use (MH) No Home Medications: Ambulatory Orders Rivaroxaban [Xarelto] 10 mg PO DAILY 08/27/17 Rosuvastatin Calcium [Crestor] 5 mg PO DAILY 06/27/18 Losartan Potassium 100 mg PO DAILY@169910/31/18 Vitamin C/Biotin [Hair, Skin and Nails Chew] 1 tab PO DAILY@1500 07/02/19 Denosumab [Prolia] 60 mg SQ Q180D 07/13/19 Diltiazem Cd [Cardizem CD] 240 mg PO DAILY@169907/13/19 Sulfamethox-Tmp 800-160Mg [Bactrim DS 800-160 mg] 1 tab PO MOWEFR@1700 02/26/20 Levocetirizine Dihydrochloride [Xyzal] 5 mg PO DAILY 01/05/21 Vit C/E/Zn/Coppr/Lutein/Zeaxan [Preservision Areds 2 Softgel] 1 cap PO BID 04/28/21 Cholecalciferol [Vitamin D3 (25 Mcg = 1000 Iu)] 25 mcg PO DAILY@1700 09/07/21 Esomeprazole Magnesium [NexIUM 24Hr] 20 mg PO DAILY 09/07/21 Fluticasone Propionate [Flovent Diskus] 1 puff INHALATION RT-DAILY 09/07/21 Hydrocortisone [Cortef] 10 mg PO DAILY@1500 09/07/21 Hydrocortisone [Cortef] 15 mg PO DAILY 09/07/21 Ipratropium Nebulized [Atrovent Nebulized 0.2 MG/ML] 0.5 mg INHALATION RT-QID PRN 09/07/21 Linaclotide [Linzess] 290 mcg PO DAILY 09/07/21 Multivit-Min/Iron/Folic/Lutein [Centrum Silver Women Tablet] 1 tab PO DAILY@1700 09/07/21 Albuterol Sulfate [Albuterol Sulfate Hfa] 2 puff INHALATION RT-Q6H PRN 11/12/22 Ascorbic Acid [Vitamin C chew] 500 mg PO DAILY 11/12/22 Calcium Carbonate/Vitamin D3 [Caltrate 600 Plus D3 20 Mcg (800 Iu)] 1 tab PO BID@1500,2100 11/12/22 Fluticasone/Umeclidin/Vilanter [Trelegy Ellipta 200-62.5-25] 1 puff INHALATION RT-DAILY 11/12/22 Levothyroxine Sodium [Synthroid] 125 mcg PO DAILY 11/12/22 Magnesium 200 mg PO DAILY@1500 11/12/22 Tezepelumab-Ekko [Tezspire] 210 mg SQ QMONTHLY 11/12/22 Ubidecarenone [Coenzyme Q10] 200 mg PO DAILY 11/12/22 polyethylene glycoL 3350 [Miralax] 17 gm PO DAILY PRN 11/12/22 Furosemide [Lasix] 20 mg PO DAILY PRN 11/19/24 Tirzepatide [Mounjaro] 10 mg SQ MO 11/19/24 Isosorbide Mononitrate ER [Imdur] 15 mg PO DAILY #30 tab 11/20/24 Baclofen 10 mg PO BID 30 Days #60 tab 01/21/25 Gabapentin [Neurontin] 300 mg PO TID 30 Days #90 cap 01/21/25 oxyCODONE HCL/ACETAMINOPHEN [Percocet 10-325 mg] 1 tab PO TID PRN 30 Days #90 tab 01/21/25 oxyCODONE HCL/ACETAMINOPHEN [Percocet 10-325 mg] 1 tab PO TID PRN 30 Days #90 tab 01/21/25 oxyCODONE HCL/ACETAMINOPHEN [Percocet 10-325 mg] 1 tab PO TID PRN 30 Days #90 tab 01/21/25 Controlled Substance Measures - Controlled Substance Measures Is patient prescribed a controlled substance at discharge?: Yes When asked, does pt state using other controlled substances?: No If prescribed controlled substance>3 days was MAPS reviewed?: Yes
== END ==
LOC: PNWHC3 09:57
PROVIDERS: ATTEND Specialist
DX: M47.26 Other spondylosis with radiculopathy, lumbar region (principal); Z88.0 Allergy status to penicillin; Z88.1 Allergy status to other antibiotic agents; Z91.018 Allergy to other foods; Z79.899 Other long term (current) drug therapy; Z87.891 Personal history of nicotine dependence; Z88.8 Allergy status to other drugs, medicaments and biological substances; Z79.891 Long term (current) use of opiate analgesic
CPT/HCPCS: 99211

== ENCOUNTER 2025-03-23 12:18 | Observation (INO) | payer MEDICARE, BC ==
--- NOTE | 2025-03-23 13:10 | ED ---
General Adult HPI - General Chief complaint: Chest Pain Stated complaint: Chest pain Time Seen by Provider: 03/23/25 12:38 Source: patient Mode of arrival: ambulatory Limitations: no limitations - History of Present Illness Initial comments: Dictation was produced using [employer] dictation software. please excuse any grammatical, word or spelling errors. Chief Complaint: 74-year-old female chest pain History of Present Illness: Patient 74-year-old female she was sitting the waiting room at her primary care physician's office when all of a sudden she began feeling tingling sensation in her chest that radiated to her jaw. States that it turned into a slight ache to her chest. Nonradiating associated diaphoresis but she does report some nausea. At the bedside patient denies any symptoms. Denies any cardiac history. States that she is family history of coronary artery disease in her father and mother. The ROS documented in this emergency department record has been reviewed and confirmed by me. Those systems with pertinent positive or negative responses have been documented in the HPI. All other systems are other negative and/or noncontributory. - Related Data Home Medications Medication Instructions Recorded Confirmed Rivaroxaban [Xarelto] 10 mg PO DAILY 08/27/17 03/02/25 Rosuvastatin Calcium [Crestor] 5 mg PO DAILY 06/27/18 03/02/25 Losartan Potassium 100 mg PO DAILY 10/31/18 03/02/25 Vitamin C/Biotin [Hair, Skin and 1 tab PO DAILY 07/02/19 03/02/25 Nails Chew] Denosumab [Prolia] 60 mg SQ Q180D 07/13/19 03/02/25 Diltiazem Cd [Cardizem CD] 240 mg PO DAILY 07/13/19 03/02/25 Sulfamethox-Tmp 800-160Mg [Bactrim 1 tab PO MOWEFR 02/26/20 03/02/25 DS 800-160 mg] Levocetirizine Dihydrochloride 5 mg PO DAILY 01/05/21 03/02/25 [Xyzal] Vit C/E/Zn/Coppr/Lutein/Zeaxan 1 cap PO BID 04/28/21 03/02/25 [Preservision Areds 2 Softgel] Cholecalciferol [Vitamin D3 (25 25 mcg PO DAILY 09/07/21 03/02/25 Mcg = 1000 Iu)] Esomeprazole Magnesium [NexIUM 20 mg PO DAILY 09/07/21 03/02/25 24Hr] Fluticasone Propionate [Flovent 1 puff INHALATION RT-DAILY 09/07/21 03/02/25 Diskus] Hydrocortisone [Cortef] 10 mg PO DAILY@1500 09/07/21 03/02/25 Hydrocortisone [Cortef] 15 mg PO DAILY 09/07/21 03/02/25 Ipratropium Nebulized [Atrovent 0.5 mg INHALATION RT-QID PRN 09/07/21 03/02/25 Nebulized 0.2 MG/ML] Albuterol Sulfate [Albuterol 2 puff INHALATION RT-Q6H PRN 11/12/22 03/02/25 Sulfate Hfa] Ascorbic Acid [Vitamin C chew] 500 mg PO DAILY 11/12/22 03/02/25 Fluticasone/Umeclidin/Vilanter 1 puff INHALATION RT-DAILY 11/12/22 03/02/25 [Treleconsuelo Ellipta 200-62.5-25] Levothyroxine Sodium [Synthroid] 125 mcg PO DAILY 11/12/22 03/02/25 Magnesium 200 mg PO DAILY 11/12/22 03/02/25 Tezepelumab-Ekko [Tezspire] 210 mg SQ QMONTHLY 11/12/22 03/02/25 Ubidecarenone [Coenzyme Q10] 200 mg PO DAILY 11/12/22 03/02/25 polyethylene glycoL 3350 [Miralax] 17 gm PO TID PRN 11/12/22 03/02/25 Furosemide [Lasix] 20 mg PO DAILY PRN 11/19/24 03/02/25 Benzonatate [Tessalon Perles] 100 mg PO TID PRN 03/02/25 03/02/25 Caltrate W/Vitamin D3 500mg/800iu 1 tab PO BID 03/02/25 03/02/25 Isosorbide Mononitrate ER [Imdur] 15 mg PO DAILY 03/02/25 03/02/25 Multivitamin Kake Chewable For 1 tab PO DAILY 03/02/25 03/02/25 Seniors Prucalopride Succinate [Motegrity] 2 mg PO DAILY 03/02/25 03/02/25 Tirzepatide [Mounjaro] 12.5 mg SQ MO 03/02/25 03/02/25 prednisoLONE ACETATE 1% OPHTH 1 drop LEFT EYE TID 03/02/25 03/02/25 [Pred Forte 1%] Previous Rx's Medication Instructions Recorded Baclofen 10 mg PO BID 30 Days #60 tab 01/21/25 Gabapentin [Neurontin] 300 mg PO TID 30 Days #90 cap 01/21/25 Doxycycline [Vibramycin] 100 mg PO BID 1 Days #14 capsule 03/05/25 Nystatin 100,000 Unit/gm Powd 1 applic TOPICAL BID #30 gm 03/05/25 [Mycostatin Powder] oxyCODONE HCL/ACETAMINOPHEN 1 tab PO TID PRN 30 Days #90 tab 03/09/25 [Percocet 10-325 mg] Allergies Allergy/AdvReac Type Severity Reaction Status Date / Time cefuroxime axetil Allergy Dyspnea Verified 03/23/25 12:24 [From Ceftin] moxifloxacin HCl Allergy Dyspnea Verified 03/23/25 12:24 [From Avelox] Penicillins Allergy Dyspnea Verified 03/23/25 12:24 rofecoxib [From Vioxx] Allergy Dyspnea Verified 03/23/25 12:24 blackberry Allergy Rash/Hives Uncoded 03/23/25 12:24 Review of Systems ROS Statement: Those systems with pertinent positive or pertinent negative responses have been documented in the HPI. ROS Other: All systems not noted in ROS Statement are negative. 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 lymphodema. History of Any Multi-Drug Resistant Organisms: None Reported Past Surgical History: Section, Cholecystectomy, Heart Catheterization, Orthopedic Surgery, Tonsillectomy Additional Past Surgical History / Comment(s): RIGHT CARPAL TUNNEL RELEASE ON 04/22/20. R ankle plate/screws, L wrist carpal tunnel release, multiple bronchoscopies, bronchial thermoplasty x3, EGDs, colonoscopies/polypectomy, deviated septal surgery, [facility] pain clinic procedures, PICC/later removed, bilateral cataract removals/lens implants. Past Anesthesia/Blood Transfusion Reactions: Family History of Problems w/ Anesthesia, Postoperative Nausea & Vomiting (PONV) Additional Past Anesthesia/Blood Transfusion Reaction / Comment(s): Pt has never received blood. Occ nausea. DAUGHTER PONV Past Psychological History: No Psychological Hx Reported Smoking Status: Former smoker Past Alcohol Use History: None Reported Past Drug Use History: None Reported - Past Family History Father Family Medical History: Cancer Additional Family Medical History / Comment(s): Colon cancer. Mother Family Medical History: Congestive Heart Failure (CHF), COPD Additional Family Medical History / Comment(s): Mother lived to be 80 yrs old. Daughter(s) Family Medical History: Deep Vein Thrombosis (DVT) General Exam - General Exam Comments Initial Comments: PHYSICAL EXAM: General Impression: Alert and oriented x3, not in acute distress HEENT: Normocephalic atraumatic, extra-ocular movements intact, pupils equal and reactive to light bilaterally, mucous membranes moist. Cardiovascular: Heart regular rate and rhythm Chest: Able to complete full sentences, no retractions, no tachypnea Abdomen: abdomen soft, non-tender, non-distended, no organomegaly Musculoskeletal: Pulses present and equal in all extremities, no peripheral edema Motor: no focal deficits noted Neurological: CN II-XII grossly intact, no focal motor or sensory deficits noted Skin: Intact with no visualized rashes Psych: Normal affect and mood Limitations: no limitations Course Vital Signs 03/23/25 03/23/25 03/23/25 12:22 12:46 14:48 Temperature 98.2 F 99.0 F Pulse Rate 77 79 79 Respiratory 22 16 16 Rate Blood Pressure 130/81 120/53 140/74 O2 Sat by Pulse 95 93 L 96 Oximetry EKG Findings - EKG Comments: EKG Findings:: My EKG interpretation: Ventricular rate 74, sinus rhythm, TN 134, cures 92, QTc 392. No TN prolongation, no QTC prolongation, no ST or T-wave changes noted. EKG compared to March 02, 2025 showing no changes. Overall, this EKG is unremarkable Medical Decision Making - Medical Decision Making Was pt. sent in by a medical professional or institution (, PA, SWIMMING POOL INSTALLER, urgent care, hospital, or [facility]...) When possible be specific @ -No Did you speak to anyone other than the patient for history (EMS, parent, family, police, friend...)? What history was obtained from this source @ -No Did you review nursing and triage notes (agree or disagree)? Why? @ -I reviewed and agree with nursing and triage notes Were old charts reviewed (outside hosp., previous admission, EMS record, old EKG, old radiological studies, urgent care reports/EKG's, [facility] records)? Report findings @ -No old charts were reviewed Differential Diagnosis (chest pain, altered mental status, abdominal pain women, abdominal pain men, vaginal bleeding, musculoskeletal, weakness, fever, dyspnea, syncope, headache, dizziness, GI bleed, back pain, seizure, CVA, palpatations, mental health)? @ -Differential Chest Pain: Stable Angina, Unstable Angina, STEMI, NSTEMI Aortic Dissection, Pneumothorax, Musculoskeletal, Esophageal Spasm GERD, Cholecystitis, Pancreatitis, Zoster, this is not meant to be an all-inclusive list. EKG interpreted by me (3pts min.). @ -See above X-rays interpreted by me (1pt min.). @ -Chest x-ray is nonacute CT interpreted by me (1pt min.). @ -None done U/S interpreted by me (1pt. min.). @ -None done What testing was considered but not performed or refused? (CT, X-rays, U/S, labs)? Why? @ -None What meds were considered but not given or refused? Why? @ -None Was smoking cessation discussed for >3mins.? @ -No Were there social determinants of health that impacted care today? How? (Homelessness, low income, unemployed, alcoholism, drug addiction, transpo rtation, low edu. Level, literacy, decrease access to med. care, fpc, rehab)? @ -No Was there de-escalation of care discussed even if they declined (Discuss DNR or withdrawal of care, Hospice)? DNR status @ -No What co-morbidities impacted this encounter? (DM, HTN, Smoking, COPD, CAD, Cancer, CVA, ARF, Chemo, Hep., AIDS, mental health diagnosis, sleep apnea, morbid obesity)? @ -None Was patient admitted / discharged? Hospital course, mention meds given and route, prescriptions, significant lab abnormalities, going to OR and other pertinent info. @ -74-year-old female presents to the emergency department atypical chest pain typical features. Vital signs upon arrival are within acceptable limits. Physical examination is benign. Patient Nuys any symptoms at the bedside. Laboratory evaluation unremarkable. Troponin is negative. Chest x-ray nonacute. Patient does have multiple risk factors including age and family history and chronic illness. Patient will be admitted observation consultation cardiology. Case discussed with hospitalist for admission Did you discuss the management of the patient with other professionals (professionals i.e. , PA, SWIMMING POOL INSTALLER, lab, RT, psych nurse, social work professor, bookmobile driver, teacher, electoral officer, adult protective caseworker)? Give summary @ -See above Was critical care preformed (if so, how long)? @ -No Undiagnosed new problem with uncertain prognosis? @ -No Drug Therapy requiring intensive monitoring for toxicity (Heparin, Nitro, Insulin, Cardizem)? @ -No Were any procedures done? @ -No Diagnosis/symptom? Acute, or Chronic, or Acute on Chronic? Uncomplicated (without systemic symptoms) or Complicated (systemic symptoms)? @ -Chest pain Side effects of treatment? @ -No Exacerbation, Progression, or Severe Exacerbation? @ -No Poses a threat to life or bodily function? How? (Chest pain, [place], HI, pneumonia, PE, COPD, DKA, ARF, appy, cholecystitis, CVA, Diverticulitis, Homicidal, Suicidal, threat to staff... and all critical care pts) @ -yes - Lab Data Result diagrams: 03/23/25 14:16 03/23/25 14:16 Lab Results 03/23/25 03/23/25 03/23/25 Range/Units 14:16 14:16 14:16 WBC 8.57 (4.50-10.00) 10*3/uL RBC 4.30 (4.10-5.20) 10*6/uL Hgb 13.3 (12.0-15.0) g/dL Hct 41.9 (37.2-46.3) % MCV 97.4 H (80.0-97.0) fL MCH 30.9 (27.0-32.0) pg MCHC 31.7 L (32.0-37.0) g/dL Plt Count 193 (140-440) 10*3/uL MPV 11.1 (9.5-12.2) fL Immature Gran % (Auto) 2.1 % Neutrophils % 66.4 % Lymphocytes % 17.0 % Monocytes % 12.8 % Eosinophils % 0.6 % Basophils % 1.1 % Immature Gran # 0.18 H (0.00-0.04) 10*3/uL Neutrophils # 5.69 (1.80-7.70) 10*3/uL Lymphocytes # 1.46 (0.90-5.00) 10*3/uL Monocytes # 1.10 H (0.20-1.00) 10*3/uL Eosinophils # 0.05 (0.04-0.35) 10*3/uL Basophils # 0.09 (0.00-0.10) 10*3/uL PT 14.0 H (10.0-12.5) sec INR 1.3 H (<1.2) APTT 26.6 (22.0-30.0) sec Sodium 139 (137-145) mmol/L Potassium 5.0 (3.5-5.1) mmol/L Chloride 104 (98-107) mmol/L Carbon Dioxide 26 (22-30) mmol/L Anion Gap 9 mmol/L BUN 29 H (7-17) mg/dL Creatinine 0.87 (0.52-1.04) mg/dL Est GFR (CKD-EPI)AfAm 76 (>60 ml/min/1.73 sqM) Est GFR (CKD-EPI)NonAf 66 (>60 ml/min/1.73 sqM) Glucose 84 (74-99) mg/dL Calcium 9.9 (8.4-10.2) mg/dL Magnesium 2.3 (1.6-2.3) mg/dL Total Bilirubin 1.5 H (0.2-1.3) mg/dL AST 46 H (14-36) U/L ALT 29 (4-34) U/L Alkaline Phosphatase 53 (38-126) U/L Troponin I (0.000-0.034) ng/mL Total Protein 7.4 (6.3-8.2) g/dL Albumin 4.7 (3.5-5.0) g/dL 03/23/25 Range/Units 14:16 WBC (4.50-10.00) 10*3/uL RBC (4.10-5.20) 10*6/uL Hgb (12.0-15.0) g/dL Hct (37.2-46.3) % MCV (80.0-97.0) fL MCH (27.0-32.0) pg MCHC (32.0-37.0) g/dL Plt Count (140-440) 10*3/uL MPV (9.5-12.2) fL Immature Gran % (Auto) % Neutrophils % % Lymphocytes % % Monocytes % % Eosinophils % % Basophils % % Immature Gran # (0.00-0.04) 10*3/uL Neutrophils # (1.80-7.70) 10*3/uL Lymphocytes # (0.90-5.00) 10*3/uL Monocytes # (0.20-1.00) 10*3/uL Eosinophils # (0.04-0.35) 10*3/uL Basophils # (0.00-0.10) 10*3/uL PT (10.0-12.5) sec INR (<1.2) APTT (22.0-30.0) sec Sodium (137-145) mmol/L Potassium (3.5-5.1) mmol/L Chloride (98-107) mmol/L Carbon Dioxide (22-30) mmol/L Anion Gap mmol/L BUN (7-17) mg/dL Creatinine (0.52-1.04) mg/dL Est GFR (CKD-EPI)AfAm (>60 ml/min/1.73 sqM) Est GFR (CKD-EPI)NonAf (>60 ml/min/1.73 sqM) Glucose (74-99) mg/dL Calcium (8.4-10.2) mg/dL Magnesium (1.6-2.3) mg/dL Total Bilirubin (0.2-1.3) mg/dL AST (14-36) U/L ALT (4-34) U/L Alkaline Phosphatase (38-126) U/L Troponin I <0.012 (0.000-0.034) ng/mL Total Protein (6.3-8.2) g/dL Albumin (3.5-5.0) g/dL Disposition Clinical Impression: Chest pain Disposition: ADMITTED IP TO THIS [facility] Condition: Fair Referrals: Laurent Gramajo DO [Primary Care Provider] - 1-2 days Decision Time: 15:42
[2025-03-23 14:30] LABS: Basophils # (A) 0.09 10*3/uL (0.00-0.10); Basophils % (A) 1.1 %; Eosinophils # (A) 0.05 10*3/uL (0.04-0.35); Eosinophils % (A) 0.6 %; HCT 41.9 % (37.2-46.3); HGB 13.3 g/dL (12.0-15.0); Lymphocytes # (A) 1.46 10*3/uL (0.90-5.00); MCH 30.9 pg (27.0-32.0); MCHC 31.7 g/dL (32.0-37.0); MCV 97.4 fL (80.0-97.0); Mean Platelet Volume 11.1 fL (9.5-12.2); Monocytes % (A) 12.8 %; Neutrophils # (A) 5.69 10*3/uL (1.80-7.70); Neutrophils % (A) 66.4 %; Platelet Count 193 10*3/uL (140-440); RDW 14.6 % (11.5-14.5); WBC 8.57 10*3/uL (4.50-10.00)
[2025-03-23 14:42] LABS: INR 1.3 (<1.2); Partial Thromboplastin Time 26.6 sec (22.0-30.0)
--- NOTE | 2025-03-23 14:45 | XR ---
EXAMINATION TYPE: XR chest 2V DATE OF EXAM: 03/23/2025 2:33 PM COMPARISON: Chest radiographs from 03/02/2025. CLINICAL INDICATION: Female, 74 years old with history of Chest Pain; [facility] TECHNIQUE: XR chest 2V Frontal and lateral views of the chest. FINDINGS: Lungs/Pleura: There is no evidence of pleural effusion, focal consolidation, or pneumothorax. Pulmonary vascularity: Pulmonary vascular congestion. Heart/mediastinum: Cardiomediastinal silhouette is enlarged. Musculoskeletal: No acute osseous pathology. IMPRESSION: Cardiomegaly and mild pulmonary vascular congestion. Correlate with BNP for congestive heart failure. [facility], , 03/23/2025 2:42 PM
[2025-03-23 14:53] LABS: ALT 29 U/L (4-34); African American GFR (CKD) 76 (>60 ml/min/1.73 sqM); Anion Gap 9 mmol/L; Blood Urea Nitrogen 29 mg/dL (7-17); Calcium 9.9 mg/dL (8.4-10.2); Carbon Dioxide 26 mmol/L (22-30); Chloride 104 mmol/L (98-107); Glucose 84 mg/dL (74-99); Non-African American GFR(CKD) 66 (>60 ml/min/1.73 sqM); Sodium 139 mmol/L (137-145)
[2025-03-23 15:19] LABS: AST 46 U/L (14-36); Albumin 4.7 g/dL (3.5-5.0); Total Bilirubin 1.5 mg/dL (0.2-1.3); Total Protein 7.4 g/dL (6.3-8.2)
[2025-03-23 15:20] LABS: Alkaline Phosphatase 53 U/L (38-126); Magnesium 2.3 mg/dL (1.6-2.3)
[2025-03-23] MEDS ORDERED: NITROGLYCERIN SL TABS 0.4 MG TAB SUBLINGUAL PRN (15:40)
[2025-03-23] MEDS: ASPIRIN 81 MG PO STA (17:37)
[2025-03-23] MEDS ORDERED: ALBUTEROL NEBULIZED 2.5 MG/3 ML INHALATION PRN (18:53)
[2025-03-23] MEDS ORDERED: FUROSEMIDE 20 MG TAB PO PRN (18:53)
[2025-03-23] MEDS ORDERED: oxyCODONE-APAP 10-325MG 1 EACH TAB PO PRN (18:53)
[2025-03-23] MEDS ORDERED: BENZONATATE 100 MG CAP PO PRN (18:53)
[2025-03-23] MEDS ORDERED: polyethylene glycoL 3350 17 GM POWD.PACK PO PRN (18:53)
--- NOTE | 2025-03-23 19:05 | P.HPIM ---
History of Present Illness H&P Date: 03/23/25 Chief Complaint: Chest pressure Pleasant 74-year-old patient who follows with Dr. Gramajo. Manager Software Development Dr. Snider. Multimedia Programmer Dr. Kirit Fang Chronic medical conditions include fibromyalgia, hypertension, osteoarthritis, chronic pulmonary embolism on xarelto, hypothyroid, tracheobronchomalacia, MTHFR gene mutation, adrenal insufficiency, hiatal hernia, chronic back pain, bilateral sciatica, lumbar DJD, osteoporosis, spinal stenosis, chronic lymphedema-noted left leg and right arm. Patient normally uses a Rollator to get about. Patient is at the doctor's office Dr. Duvall. They developed pressure across the chest. Going up to the jaw. It felt as if it was rising into her. Lasted for good 5 minutes. Did not complete resolved. Patient at baseline has some shortness of breath and cough. Has some baseline dizziness lightheadedness. The doctor's office sent her to the ER. She does follow with drapery hand Dr. Kirit Fang. Stress was over a year ago. Review of systems: GEN.: Tired EYES: Decreased eyes] HEENT: None NECK: None RESPIRATORY: N baseline short of breath and cough CARDIOVASCULAR: None GASTROINTESTINAL: None GENITOURINARY: None MUSCULOSKELETAL: Chronic joint pain LYMPHATICS: None HEMATOLOGICAL: None PSYCHIATRY: None NEUROLOGICAL: [Does use a rollator Past medical history to include: COPD asthma fibromyalgia hypertension osteoarthritis chronic pulmonary embolism hypothyroid tracheobronchomalacia MDHF are gene mutation, multiple PEs, adrenal insufficiency, hiatal hernia, macular degeneration of the left eye worse, chronic back pain, DJD, sciatica, spinal stenosis, osteoporosis, lymphedema of left leg and right arm. Frozen shoulder Social history: Lives with her . Smoked for 10 years stopped in 1989. No alcohol. Uses a rollator Physical examination: VITAL SIGNS: 99, 79, 16, 140 was 74, 96% room GENERAL: Sitting up reclining in bed EYES: Pupils equal. Conjunctiva normal. HEENT: External appearance of nose and ears normal, oral cavity grossly normal. NECK: JVD not raised; masses not palpable. HEART: First and second heart sounds are normal; nonpitting edema left leg. LUNGS: Respiratory rate increased; decreased breath sounds. Occasional crackles ABDOMEN: Soft, nontender, liver spleen not palpable, no masses palpable. PSYCH: Alert and oriented x3; mood and affect normal. MUSCULOSKELETAL:No Clubbing/cyanosis;muscles-grossly intact. Kyphotic. OA Extremity: Left lower extremity redness greatly improved. INVESTIGATIONS, reviewed in the clinical context: March 23, 2025: White count 8.5 hemoglobin 13.3 platelets 193 sodium 139 potassium 5.0 BUN 29 creatinine 0.87 Troponin I less than 0.012 x 2 EKG tracing personally reviewed by me-normal sinus rhythm. Some T wave changes anterior leads Chest x-ray film personally reviewed by me-portable. Decreased penetration. Possibly chronic changes 2D echo November 2024: EF 55 to 60%. Moderate concentric LVH. Assessment and plan: - Anterior chest wall pain. Pain rating to her jaw. Lasted only for 5 minutes. At rest. Serial troponins. EKG nonspecific T wave changes. Cardiology consulted -GERD Nexium 20 mg a day - severe persistent asthma, Flovent discus. Trelegy Ellipta. DuoNeb as needed. -Hypothyroid Synthroid 125 g -Essential hypertension Losartan 100 mg a day Cardizem CD 240 mg a -Chronic adrenal insufficiency Cortef 15 mg a day, 10 mg at 5 PM -Chronic tracheobronchomalacia -Chronic osteoporosis, osteopenia, spinal stenosis, DJD -Hyperlipidemia Crestor 5 mg daily at bedtime Prolia -Chronic constipation Uses laxatives as needed -Chronic pulmonary embolism Xarelto 10 mg a day -Chronic DJD, spinal stenosis Calcium supplements -Chronic arthritis multiple joints -Chronic gait dysfunction uses a Rollator baseline -Chronic lymphedema left lower extremity right upper extremity -Left frozen shoulder -Medical power of city attorney: [place] Love -DNR Advance care planning November 19, 2024 Had a lengthy discussion with the patient and at the bedside. Patient overall functional status multiple medical problems overall poor in the context of resuscitation. After full discussion patient decided to be no code understanding until such time she will receive all treatment. Patient does have a trust. And there is a medical power of city attorney in succession. Care was discussed with the patient on top of the bedside. 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 lymphodema. History of Any Multi-Drug Resistant Organisms: None Reported Past Surgical History: Section, Cholecystectomy, Heart Catheterization, Orthopedic Surgery, Tonsillectomy Additional Past Surgical History / Comment(s): RIGHT CARPAL TUNNEL RELEASE ON 04/22/20. R ankle plate/screws, L wrist carpal tunnel release, multiple bronchoscopies, bronchial thermoplasty x3, EGDs, colonoscopies/polypectomy, deviated septal surgery, [facility] pain clinic procedures, PICC/later removed, bilateral cataract removals/lens implants. Past Anesthesia/Blood Transfusion Reactions: Family History of Problems w/ Anesthesia, Postoperative Nausea & Vomiting (PONV) Additional Past Anesthesia/Blood Transfusion Reaction / Comment(s): Pt has never received blood. Occ nausea. DAUGHTER PONV Past Psychological History: No Psychological Hx Reported Smoking Status: Former smoker Past Alcohol Use History: None Reported Past Drug Use History: None Reported - Past Family History Father Family Medical History: Cancer Additional Family Medical History / Comment(s): Colon cancer. Mother Family Medical History: Congestive Heart Failure (CHF), COPD Additional Family Medical History / Comment(s): Mother lived to be 80 yrs old. Daughter(s) Family Medical History: Deep Vein Thrombosis (DVT) Medications and Allergies Home Medications Medication Instructions Recorded Confirmed Type Rivaroxaban [Xarelto] 10 mg PO DAILY 08/27/17 03/23/25 History Rosuvastatin Calcium [Crestor] 5 mg PO DAILY 06/27/18 03/23/25 History Losartan Potassium 100 mg PO DAILY 10/31/18 03/23/25 History Vitamin C/Biotin [Hair, Skin and 1 tab PO DAILY 07/02/19 03/23/25 History Nails Chew] Denosumab [Prolia] 60 mg SQ Q180D 07/13/19 03/23/25 History Diltiazem Cd [Cardizem CD] 240 mg PO DAILY 07/13/19 03/23/25 History Sulfamethox-Tmp 800-160Mg [Bactrim 1 tab PO MOWEFR 02/26/20 03/23/25 History DS 800-160 mg] Levocetirizine Dihydrochloride 5 mg PO DAILY 01/05/21 03/23/25 History [Xyzal] Vit C/E/Zn/Coppr/Lutein/Zeaxan 1 cap PO BID 04/28/21 03/23/25 History [Preservision Areds 2 Softgel] Cholecalciferol [Vitamin D3 (25 25 mcg PO DAILY 09/07/21 03/23/25 History Mcg = 1000 Iu)] Esomeprazole Magnesium [NexIUM 20 mg PO DAILY 09/07/21 03/23/25 History 24Hr] Fluticasone Propionate [Flovent 1 puff INHALATION RT-DAILY 09/07/21 03/23/25 History Diskus] Hydrocortisone [Cortef] 10 mg PO DAILY@1500 09/07/21 03/23/25 History Hydrocortisone [Cortef] 15 mg PO DAILY 09/07/21 03/23/25 History Ipratropium Nebulized [Atrovent 0.5 mg INHALATION RT-QID 09/07/21 03/23/25 History Nebulized 0.2 MG/ML] Albuterol Sulfate [Albuterol 2 puff INHALATION RT-Q6H PRN 11/12/22 03/23/25 History Sulfate Hfa] Ascorbic Acid [Vitamin C chew] 500 mg PO DAILY 11/12/22 03/23/25 History Fluticasone/Umeclidin/Vilanter 1 puff INHALATION RT-DAILY 11/12/22 03/23/25 History [Trelegy Ellipta 200-62.5-25] Levothyroxine Sodium [Synthroid] 125 mcg PO DAILY 11/12/22 03/23/25 History Magnesium 200 mg PO DAILY 11/12/22 03/23/25 History Tezepelumab-Ekko [Tezspire] 210 mg SQ QMONTHLY 11/12/22 03/23/25 History Ubidecarenone [Coenzyme Q10] 200 mg PO DAILY 11/12/22 03/23/25 History polyethylene glycoL 3350 [Miralax] 17 gm PO TID PRN 11/12/22 03/23/25 History Furosemide [Lasix] 20 mg PO DAILY PRN 11/19/24 03/23/25 History Baclofen 10 mg PO BID 30 Days #60 tab 01/21/25 03/23/25 Rx Gabapentin [Neurontin] 300 mg PO TID 30 Days #90 cap 01/21/25 03/23/25 Rx Benzonatate [Tessalon Perles] 100 mg PO TID PRN 03/02/25 03/23/25 History Caltrate W/Vitamin D3 500mg/800iu 1 tab PO BID 03/02/25 03/23/25 History Isosorbide Mononitrate ER [Imdur] 15 mg PO DAILY 03/02/25 03/23/25 History Multivitamin [place] Chewable For 1 tab PO DAILY 03/02/25 03/23/25 History Seniors Prucalopride Succinate [Motegrity] 2 mg PO DAILY 03/02/25 03/23/25 History Tirzepatide [Mounjaro] 12.5 mg SQ MO 03/02/25 03/23/25 History oxyCODONE HCL/ACETAMINOPHEN 1 tab PO TID PRN 30 Days #90 tab 03/09/25 03/23/25 Rx [Percocet 10-325 mg] Allergies Allergy/AdvReac Type Severity Reaction Status Date / Time cefuroxime axetil Allergy Dyspnea Verified 03/23/25 17:18 [From Ceftin] moxifloxacin HCl Allergy Dyspnea Verified 03/23/25 17:18 [From Avelox] Penicillins Allergy Dyspnea Verified 03/23/25 17:18 rofecoxib [From Vioxx] Allergy Dyspnea Verified 03/23/25 17:18 albuterol AdvReac Rapid Verified 03/23/25 17:20 Heart Rate blackberry Allergy Rash/Hives Uncoded 03/23/25 12:24 Physical Exam Vitals: Vital Signs Temp Pulse Resp BP Pulse Ox 03/23/25 14:48 79 16 140/74 96 03/23/25 12:46 99.0 F 79 16 120/53 93 L 03/23/25 12:22 98.2 F 77 22 130/81 95 Intake and Output 03/23/25 03/23/25 03/23/25 06:59 14:59 22:59 Other: Weight 92.079 kg Results CBC & Chem 7: 03/23/25 14:16 03/23/25 14:16 Labs: Abnormal Lab Results - Last 24 Hours (Table) 03/23/25 03/23/25 03/23/25 Range/Units 14:16 14:16 14:16 MCV 97.4 H (80.0-97.0) fL MCHC 31.7 L (32.0-37.0) g/dL Immature Gran # 0.18 H (0.00-0.04) 10*3/uL Monocytes # 1.10 H (0.20-1.00) 10*3/uL PT 14.0 H (10.0-12.5) sec INR 1.3 H (<1.2) BUN 29 H (7-17) mg/dL Total Bilirubin 1.5 H (0.2-1.3) mg/dL AST 46 H (14-36) U/L
[2025-03-23] MEDS: GABAPENTIN 300 MG CAP PO SCH (19:55)
[2025-03-23] MEDS: VIT A,C & E-LUTEIN-MINERALS 1 EACH TAB PO SCH (20:51)
[2025-03-23] MEDS: BACLOFEN 10 MG TAB PO SCH (20:52)
[2025-03-23] MEDS: CALCIUM CARB-VIT D 500 MG-5 MCG TAB PO SCH (20:52)
[2025-03-23] MEDS: ZOLPIDEM 5 MG TAB PO SCH (23:27)
[2025-03-24] MEDS: LEVOTHYROXINE 125 MCG TAB PO SCH (06:05)
[2025-03-24] MEDS ORDERED: FLUTICASONE 110 MCG INHALER INHALATION SCH (08:00)
[2025-03-24] MEDS: TIOTROPIUM 2.5 MCG INHALER INHALATION SCH (08:03)
[2025-03-24] MEDS: SYMBICORT 160-4.5 MCG INHALER INHALATION SCH (08:03)
[2025-03-24] MEDS: ASPIRIN 325 MG TAB PO SCH (08:16)
[2025-03-24] MEDS: LOSARTAN 50 MG TAB PO SCH (08:16)
[2025-03-24] MEDS: CHOLECALCIFEROL 25 MCG (1000 IU) TABLET PO SCH (08:17)
[2025-03-24] MEDS: DILTIAZEM CD 240 MG CAP.ER.24H PO SCH (08:18)
[2025-03-24] MEDS: ASCORBIC ACID 500 MG TAB PO SCH (08:18)
[2025-03-24] MEDS: MAGNESIUM OXIDE 400 MG TAB PO SCH (08:19)
[2025-03-24] MEDS: PANTOPRAZOLE 40 MG TABLET PO SCH (08:19)
[2025-03-24] MEDS: LORATADINE 10 MG TAB PO SCH (08:19)
[2025-03-24] MEDS: ATORVASTATIN 10 MG TAB PO SCH (08:21)
[2025-03-24] MEDS: MULTIVITAMINS, THERA 1 EACH TAB PO SCH (08:21)
[2025-03-24] MEDS: ISOSORBIDE MONONITRATE ER 15 MG TAB PO SCH (08:23)
[2025-03-24] MEDS: HYDROCORTISONE 10 MG TAB PO SCH ×2 (08:23→14:51)
[2025-03-24] MEDS: NON FORMULARY DRUG (Vitamin C/Biotin [Hair, Skin And Nails Chew] 1 EACH Tab.Chew) PO SCH (08:28)
[2025-03-24] MEDS ORDERED: DOBUTamine DRIP for NUC MED 500 MG in DEXTROSE/WATER 1 250ML.BAG IV PRN (08:53)
[2025-03-24] MEDS: RIVAROXABAN 10 MG TAB PO SCH (09:03)
[2025-03-24] MEDS: ASPIRIN 81 MG PO SCH (09:03)
[2025-03-24] MEDS: SULFAMETHOX-TMP 800-160MG 1 EACH TAB PO SCH (09:04)
--- NOTE | 2025-03-24 10:18 | P.CRDCN ---
History of Present Illness History of present illness: HISTORY OF PRESENT ILLNESS: This is a 74-year-old female with a past medical history significant for normal coronary arteries, hypertension, hyperlipidemia, pulmonary embolism on Xarelto, cellulitis, lymphedema, and COPD. Patient follows in the office with Dr. Fang. We have been asked to see the patient in consultation for chest pain. Patient examined at the bedside in the emergency room. Patient states that she was at Dr. Duvall's office yesterday when she started to have chest pain. She states the pain was in the middle of her chest and felt like a prickly sensation. She states the pain then radiated across to her entire chest and went into her jaw. She denied having any worsening shortness of breath. At the time of examination she denies any chest pain or pressure. DIAGNOSTICS: - EKG reveals sinus mechanism with T wave inversions in lead III. - Chest xray cardiomegaly mild pulmonary vascular congestion. - Laboratory data: WBC 8.57. Hemoglobin 13.3. Platelet count 193. Sodium 139. Potassium 5.0. BUN 29. Creatinine 0.87. Magnesium 2.3. Troponin negative x 3. - Current home cardiac medications include rosuvastatin 5 mg daily, Xarelto 10 mg daily, losartan 100 mg daily, Imdur 15 mg daily, Cardizem CD 240 mg daily, Lasix 20 mg daily as needed. - Most recent echocardiogram obtained in November 2024 revealed ejection fraction 55 to 60%, mild pulmonary hypertension, mild aortic stenosis with peak gradient 26 mmHg and mean gradient 14 mmHg, trace TR -Patient underwent Lexiscan stress test in August 2017 which was negative for ischemia - Cardiac catheterization history: 2006 revealing normal coronary arteries REVIEW OF SYSTEMS: At the time of my exam: CONSTITUTIONAL: Denies fever or chills. HEENT: Denies blurred vision, vision changes, or eye pain. Denies hemoptysis CARDIOVASCULAR: Denies chest pain. Denies orthopnea. Denies PND. Denies palpi tations RESPIRATORY: Denies shortness of breath. GASTROINTESTINAL: Denies abdominal pain. Denies nausea or vomiting. HEMATOLOGIC: Denies bleeding disorders. GENITOURINARY: Denies any blood in urine. SKIN: Denies pruitis. Denies rash. PHYSICAL EXAM: VITAL SIGNS: Reviewed. GENERAL: Well-developed in no acute distress. HEENT: Head is normocephalic. Pupils are equal, round. Sclerae anicteric. Mucous membranes of the mouth are moist. Neck supple. No JVD or thyromegaly LUNGS: Respirations even and unlabored. Lungs with rhonchi throughout HEART: Mildly tachycardic. Regular rate and rhythm. S1 and S2 heard. Systolic murmur noted ABDOMEN: Soft. Nondistended. Nontender. EXTREMITIES: Normal range of motion. No clubbing or cyanosis. Peripheral pulses intact. Trace bilateral lower extremity edema with erythema to left lower extremity NEUROLOGIC: Awake and alert. Oriented x 3. ASSESSMENT: Chest pain, troponin negative x 3 History of COPD History of pulmonary embolism on Xarelto Hypertension Hyperlipidemia Normal coronary arteries, per cath 2006 History of cellulitis History of lymphedema Morbid obesity: BMI 41.0 PLAN: An acute coronary event has been ruled out No need to repeat echocardiogram as this was performed in November 2024 Decrease aspirin to 81 mg daily Resume home cardiac medications NPO Patient to undergo dobutamine stress echo today If negative, patient may be discharged home from a cardiac standpoint Nurse practitioner note has been reviewed by physician. Signing provider agrees with the documented findings, assessment, and plan of care documented by CALL CENTER AGENT as a scribe. 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 ly mphodema. History of Any Multi-Drug Resistant Organisms: None Reported Past Surgical History: Section, Cholecystectomy, Heart Catheterization, Orthopedic Surgery, Tonsillectomy Additional Past Surgical History / Comment(s): RIGHT CARPAL TUNNEL RELEASE ON 04/22/20. R ankle plate/screws, L wrist carpal tunnel release, multiple bronchoscopies, bronchial thermoplasty x3, EGDs, colonoscopies/polypectomy, deviated septal surgery, [facility] pain clinic procedures, PICC/later removed, bilateral cataract removals/lens implants. Past Anesthesia/Blood Transfusion Reactions: Family History of Problems w/ Anesthesia, Postoperative Nausea & Vomiting (PONV) Additional Past Anesthesia/Blood Transfusion Reaction / Comment(s): Pt has never received blood. Occ nausea. DAUGHTER PONV Past Psychological History: No Psychological Hx Reported Smoking Status: Former smoker Past Alcohol Use History: None Reported Past Drug Use History: None Reported - Past Family History Father Family Medical History: Cancer Additional Family Medical History / Comment(s): Colon cancer. Mother Family Medical History: Congestive Heart Failure (CHF), COPD Additional Family Medical History / Comment(s): Mother lived to be 80 yrs old. Daughter(s) Family Medical History: Deep Vein Thrombosis (DVT) Medications and Allergies Home Medications Medication Instructions Recorded Confirmed Type Rivaroxaban [Xarelto] 10 mg PO DAILY 08/27/17 03/23/25 History Rosuvastatin Calcium [Crestor] 5 mg PO DAILY 06/27/18 03/23/25 History Losartan Potassium 100 mg PO DAILY 10/31/18 03/23/25 History Vitamin C/Biotin [Hair, Skin and 1 tab PO DAILY 07/02/19 03/23/25 History Nails Chew] Denosumab [Prolia] 60 mg SQ Q180D 07/13/19 03/23/25 History Diltiazem Cd [Cardizem CD] 240 mg PO DAILY 07/13/19 03/23/25 History Sulfamethox-Tmp 800-160Mg [Bactrim 1 tab PO MOWEFR 02/26/20 03/23/25 History DS 800-160 mg] Levocetirizine Dihydrochloride 5 mg PO DAILY 01/05/21 03/23/25 History [Xyzal] Vit C/E/Zn/Coppr/Lutein/Zeaxan 1 cap PO BID 04/28/21 03/23/25 History [Preservision Areds 2 Softgel] Cholecalciferol [Vitamin D3 (25 25 mcg PO DAILY 09/07/21 03/23/25 History Mcg = 1000 Iu)] Esomeprazole Magnesium [NexIUM 20 mg PO DAILY 09/07/21 03/23/25 History 24Hr] Fluticasone Propionate [Flovent 1 puff INHALATION RT-DAILY 09/07/21 03/23/25 History Diskus] Hydrocortisone [Cortef] 10 mg PO DAILY@1500 09/07/21 03/23/25 History Hydrocortisone [Cortef] 15 mg PO DAILY 09/07/21 03/23/25 History Ipratropium Nebulized [Atrovent 0.5 mg INHALATION RT-QID 09/07/21 03/23/25 History Nebulized 0.2 MG/ML] Albuterol Sulfate [Albuterol 2 puff INHALATION RT-Q6H PRN 11/12/22 03/23/25 History Sulfate Hfa] Ascorbic Acid [Vitamin C chew] 500 mg PO DAILY 11/12/22 03/23/25 History Fluticasone/Umeclidin/Vilanter 1 puff INHALATION RT-DAILY 11/12/22 03/23/25 History [Trelegy Ellipta 200-62.5-25] Levothyroxine Sodium [Synthroid] 125 mcg PO DAILY 11/12/22 03/23/25 History Magnesium 200 mg PO DAILY 11/12/22 03/23/25 History Tezepelumab-Ekko [Tezspire] 210 mg SQ QMONTHLY 11/12/22 03/23/25 History Ubidecarenone [Coenzyme Q10] 200 mg PO DAILY 11/12/22 03/23/25 History polyethylene glycoL 3350 [Miralax] 17 gm PO TID PRN 11/12/22 03/23/25 History Furosemide [Lasix] 20 mg PO DAILY PRN 11/19/24 03/23/25 History Baclofen 10 mg PO BID 30 Days #60 tab 01/21/25 03/23/25 Rx Gabapentin [Neurontin] 300 mg PO TID 30 Days #90 cap 01/21/25 03/23/25 Rx Benzonatate [Tessalon Perles] 100 mg PO TID PRN 03/02/25 03/23/25 History Caltrate W/Vitamin D3 500mg/800iu 1 tab PO BID 03/02/25 03/23/25 History Isosorbide Mononitrate ER [Imdur] 15 mg PO DAILY 03/02/25 03/23/25 History Multivitamin [place] Chewable For 1 tab PO DAILY 03/02/25 03/23/25 History Seniors Prucalopride Succinate [Motegrity] 2 mg PO DAILY 03/02/25 03/23/25 History Tirzepatide [Mounjaro] 12.5 mg SQ MO 03/02/25 03/23/25 History oxyCODONE HCL/ACETAMINOPHEN 1 tab PO TID PRN 30 Days #90 tab 03/09/25 03/23/25 Rx [Percocet 10-325 mg] Allergies Allergy/AdvReac Type Severity Reaction Status Date / Time cefuroxime axetil Allergy Dyspnea Verified 03/23/25 17:18 [From Ceftin] moxifloxacin HCl Allergy Dyspnea Verified 03/23/25 17:18 [From Avelox] Penicillins Allergy Dyspnea Verified 03/23/25 17:18 rofecoxib [From Vioxx] Allergy Dyspnea Verified 03/23/25 17:18 albuterol AdvReac Rapid Verified 03/23/25 17:20 Heart Rate blackberry Allergy Rash/Hives Uncoded 03/23/25 12:24 Physical Exam Vitals: Vital Signs Temp Pulse Resp BP Pulse Ox 03/24/25 10:00 105 H 18 140/88 98 03/24/25 08:27 104 H 18 141/84 98 03/24/25 08:04 96 03/24/25 06:04 98.4 F 96 18 163/91 100 03/24/25 04:35 98.5 F 93 20 148/103 96 03/24/25 02:20 98.2 F 81 18 153/81 99 03/24/25 00:20 100 03/23/25 23:57 18 98 03/23/25 23:10 98.4 F 92 18 157/85 95 03/23/25 19:49 98.0 F 85 18 150/71 95 03/23/25 14:48 79 16 140/74 96 03/23/25 12:46 99.0 F 79 16 120/53 93 L 03/23/25 12:22 98.2 F 77 22 130/81 95 Results 03/23/25 14:16 03/23/25 14:16 Cardiac Enzymes 03/23/25 03/23/25 03/23/25 Range/Units 14:16 14:16 17:29 AST 46 H (14-36) U/L Troponin I <0.012 <0.012 (0.000-0.034) ng/mL 03/23/25 Range/Units 20:34 AST (14-36) U/L Troponin I <0.012 (0.000-0.034) ng/mL Coagulation 03/23/25 Range/Units 14:16 PT 14.0 H (10.0-12.5) sec APTT 26.6 (22.0-30.0) sec CBC 03/23/25 Range/Units 14:16 WBC 8.57 (4.50-10.00) 10*3/uL RBC 4.30 (4.10-5.20) 10*6/uL Hgb 13.3 (12.0-15.0) g/dL Hct 41.9 (37.2-46.3) % Plt Count 193 (140-440) 10*3/uL Comprehensive Metabolic Panel 03/23/25 Range/Units 14:16 Sodium 139 (137-145) mmol/L Potassium 5.0 (3.5-5.1) mmol/L Chloride 104 (98-107) mmol/L Carbon Dioxide 26 (22-30) mmol/L BUN 29 H (7-17) mg/dL Creatinine 0.87 (0.52-1.04) mg/dL Glucose 84 (74-99) mg/dL Calcium 9.9 (8.4-10.2) mg/dL AST 46 H (14-36) U/L ALT 29 (4-34) U/L Alkaline Phosphatase 53 (38-126) U/L Total Protein 7.4 (6.3-8.2) g/dL Albumin 4.7 (3.5-5.0) g/dL Current Medications Generic Name Dose Route Start Last Admin Trade Name Freq PRN Reason Stop Dose Admin Ascorbic Acid 500 mg 03/24/25 09:00 03/24/25 08:18 Ascorbic Acid 500 Mg Tab PO 500 mg DAILY RONALDO Administration Aspirin 81 mg 03/24/25 09:00 03/24/25 09:03 Aspirin 81 Mg PO Not Given DAILY RONALDO Atorvastatin Calcium 10 mg 03/24/25 09:00 03/24/25 08:21 Atorvastatin 10 Mg Tab PO 10 mg DAILY RONALDO Administration Baclofen 10 mg 03/23/25 21:00 03/24/25 08:17 Baclofen 10 Mg Tab PO 10 mg BID RONALDO Administration Benzonatate 100 mg 03/23/25 18:53 Benzonatate 100 Mg Cap PO TID PRN Cough Budesonide/Formoterol Fumarate 2 puff 03/24/25 08:00 03/24/25 08:03 Symbicort 160-4.5 Mcg Inhaler INHALATION 2 puff RT-BID RONALDO Administration Calcium Carbonate 1 each 03/23/25 21:00 03/24/25 08:18 Calcium Carb-Vit D 500 Mg-5 Mcg Tab PO 1 each BID RONALDO Administration Cholecalciferol 25 mcg 03/24/25 09:00 03/24/25 08:17 Cholecalciferol 25 Mcg (1000 Iu) Tablet PO 25 mcg DAILY RONALDO Administration Diltiazem HCl 240 mg 03/24/25 09:00 03/24/25 08:18 Diltiazem Cd 240 Mg Cap.Er.24h PO 240 mg DAILY RONALDO Administration Furosemide 20 mg 03/23/25 18:53 Furosemide 20 Mg Tab PO DAILY PRN Edema Gabapentin 300 mg 03/23/25 19:00 03/24/25 08:17 Gabapentin 300 Mg Cap PO 300 mg TID RONALDO Administration Hydrocortisone 10 mg 03/24/25 15:00 Hydrocortisone 10 Mg Tab PO DAILY@1500 RONALDO Hydrocortisone 15 mg 03/24/25 09:00 03/24/25 08:23 Hydrocortisone 10 Mg Tab PO 15 mg DAILY RONALDO Administration Dobutamine HCl/Dextrose 500 mg 250 mls @ 27.624 mls/hr 03/24/25 08:53 / IV Solution IV 03/24/25 12:53 .Q9H3M PRN Per Protocol Protocol 10 MCG/KG/MIN Isosorbide Mononitrate 15 mg 03/24/25 09:00 03/24/25 08:23 Isosorbide Mononitrate Er 15 Mg Tab PO 15 mg DAILY RONALDO Administration Levothyroxine Sodium 125 mcg 03/24/25 06:30 03/24/25 06:05 Levothyroxine 125 Mcg Tab PO 125 mcg 0630 RONALDO Administration Loratadine 10 mg 03/24/25 09:00 03/24/25 08:19 Loratadine 10 Mg Tab PO 10 mg DAILY RONALDO Administration Losartan Potassium 100 mg 03/24/25 09:00 03/24/25 08:16 Losartan 50 Mg Tab PO 100 mg DAILY RONALDO Administration Magnesium Oxide 200 mg 03/24/25 09:00 03/24/25 08:19 Magnesium Oxide 400 Mg Tab PO 200 mg DAILY RONALDO Administration Multivitamins 1 each 03/24/25 09:00 03/24/25 08:21 Multivitamins, Thera 1 Each Tab PO 1 each DAILY RONALDO Administration Multivitamins/Minerals 1 each 03/23/25 21:00 03/24/25 08:21 Vit A,C & G-Wdyrfw-Niuwkchv 1 Each Tab PO 1 each BID RONALDO Administration Nitroglycerin 0.4 mg 03/23/25 15:40 Nitroglycerin Sl Tabs 0.4 Mg Tab SUBLINGUAL Q5M PRN Chest Pain Motegrity ( 1 each 03/24/25 09:00 03/24/25 08:39 Prucalopride PO Not Given Succinate) 2 Mg DAILY RONALDO Tablet Non-Formulary Medication 1 tab 03/24/25 09:00 03/24/25 08:28 Vitamin C/Biotin [Hair, Skin And Nails Chew] PO Not Given DAILY RONALDO Mounjaro ( 12.5 mg 03/29/25 09:00 Tirzepatide 12.5 Mg/ SQ 0.5 Ml Pen.Injctr) MO RONALDO Oxycodone/Acetaminophen 1 each 03/23/25 18:53 Oxycodone-Apap 10-325mg 1 Each Tab PO TID PRN Pain Pantoprazole Sodium 40 mg 03/24/25 09:00 03/24/25 08:19 Pantoprazole 40 Mg Tablet PO 40 mg DAILY RONALDO Administration Polyethylene Glycol 17 gm 03/23/25 18:53 Polyethylene Glycol 3350 17 Gm Powd.Pack PO TID PRN Constipation Rivaroxaban 10 mg 03/24/25 09:00 03/24/25 09:03 Rivaroxaban 10 Mg Tab PO 10 mg DAILY RONALDO Administration Protocol Tiotropium Amelia 2 puff 03/24/25 08:00 03/24/25 08:03 Tiotropium 2.5 Mcg Inhaler INHALATION 2 puff RT-DAILY RONALDO Administration Trimethoprim/Sulfamethoxazole 1 each 03/24/25 09:00 03/24/25 09:04 Sulfamethox-Tmp 800-160mg 1 Each Tab PO 1 each MOWEFR RONALDO Administration Protocol Zolpidem Tartrate 5 mg 03/23/25 23:00 03/23/25 23:27 Zolpidem 5 Mg Tab PO 5 mg HS RONALDO Administration 03/23/25 14:16 03/23/25 14:16
[2025-03-24] MEDS: LORazepam 1 MG TAB PO STA (16:00)
[2025-03-24 18:24] LABS: Amorphous Sediment,Urine Rare /hpf; Appearance,Urine Cloudy (Clear); Bilirubin,Urine Negative (Negative); Blood,Urine Negative (Negative); Color,Urine Light Yellow; Glucose,Urine (UA) Negative (Negative); Ketones,Urine 1+ (Negative); Leukocyte Esterase,Urine Negative (Negative); Mucus,Urine Rare /hpf; Nitrite,Urine Negative (Negative); PH, Urine 7.5 (5.0-8.0); Protein,Urine Negative (Negative); RBC,Urine <1 /hpf (0-5); Specific Gravity,Urine 1.018 (1.001-1.035); Squamous Epithelial Cell,Urine 1 /hpf (0-4); Urobilinogen,Urine <2.0 mg/dL (<2.0); WBC,Urine 1 /hpf (0-5)
[2025-03-24 18:29] VITALS: BP 124/77; PULSE 114; RESP 18; TEMP 98.3
--- NOTE | 2025-03-24 18:38 | CA ---
Dobutamine Stress Echocardiogram Report Elsie Love Age: 74 Gender: F : 1950 Exam Date: 03/24/2025 11:53 Exam Location: [place] [facility] Ordering Physician: Sandra Mcafdden Referring Physician: MARJORIE,, Side Laster Tack: Sierra Rivas RDCS Technologist: Ht (in): 59 Wt (lb): 203 Procedure CPT: Indication: Chest Pain ICD-9 Codes: Rhythm: Patient History: CHEST PAIN, DIFFICULTY IN BREATHING, PALPITATIONS, HTN, HYPERCHOLESTEROLEMIA, FAMILY HX OF HEART DISEASE, PRIOR SMOKER, COPD, ASTHMA Cardiac Medications: Medications in past 24 hours: Contrast: Total Dose (mL): Stress Results Protocol: Dobutamine Peak Dose (???g/kg/min): 20 Duration (min:sec): Atropine:(mg) N/A Target HR: 124 Double Product: [id number] Resting HR: 116 Resting BP: 122 / 81 Peak HR: 139 Peak BP: 122 / 81 Max Predicted HR: 146 95 % Max Predicted HR Stress Summary: BP Response: Reason for Termination: Target HR,INFUSION COMPLETE Cardiac Symptoms: NECK PAIN ECG Analysis Resting EKG: Normal sinus rhythm Stress EKG: No abnormal ST/T wave changes with exercise that are suggestive of ischemia Arrhythmia: None Echo Analysis Base Echo Analysis: Normal global and regional wall motion at rest Low Echo Anaylsis: Normal augmentation of global and segmental LV systolic function. No stress induced regional wall motion abnormality. Peak Echo Analysis: Normal augmentation of global and segmental LV systolic function. No stress induced regional wall motion abnormality. Recovery Echo: No wall motion abnormality MEASUREMENTS (Male/Female) Normal Values CONCLUSIONS Overall low probability for severe obstructive CAD Nonischemic ECG and echocardiographic response to dobutamine infusion Normal hemodynamic and clinical response to dobutamine infusion Dr Iftikhar Kiran (Electronically Signed) Final Date: 24 March 2025 18:36
--- NOTE | 2025-03-24 18:57 | P.DS ---
Providers Date of admission: 03/23/25 15:40 Expected date of discharge: 03/24/25 Attending physician: Parish Ibarra Consults: 03/23/25 15:40 Consult Physician Urgent Consulting Provider: Iftikhar Kiran Consult Reason/Comments: chest pain Do you want consulting provider notified?: Yes Primary care physician: [facility] Hospital Course: Chief Complaint: Chest pressure Pleasant 74-year-old patient who follows with Dr. Gramajo. Silviculture Professor Dr. Snider. Edi Manager Dr. Kirit Fang Chronic medical conditions include fibromyalgia, hypertension, osteoarthritis, chronic pulmonary embolism on xarelto, hypothyroid, tracheobronchomalacia, MTHFR gene mutation, adrenal insufficiency, hiatal hernia, chronic back pain, bilateral sciatica, lumbar DJD, osteoporosis, spinal stenosis, chronic lymphedema-noted left leg and right arm. Patient normally uses a Rollator to get about. Patient is at the doctor's office Dr. Duvall. They developed pressure across the chest. Going up to the jaw. It felt as if it was rising into her. Lasted for good 5 minutes. Did not complete resolved. Patient at baseline has some shortness of breath and cough. Has some baseline dizziness lightheadedness. The doctor's office sent her to the ER. She does follow with help desk associate Dr. Kirit Fang. Stress was over a year ago. March 24: Stable. No further chest pain. Dobutamine stress echocardiogram was done. Nurse called to say, cleared by cardiology for discharge. Patient at this evening started off with some urinary symptoms. Doxycycline 1 dose given. Will complete 3 dose of the same. Earlier spoke to the patient and at the bedside. Follow-up with her help desk associate. 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 Frozen shoulder Social history: Lives with her . Smoked for 10 years stopped in 1989. No alcohol. Uses a rollator Physical examination: VITAL SIGNS: 98.3, 114, 18, 124 x 77, 92% room air GENERAL: Sitting up reclining in bed EYES: Pupils equal. Conjunctiva some redness of the left conjunctiva HEENT: External appearance of nose and ears normal, oral cavity grossly normal. NECK: JVD not raised; masses not palpable. HEART: First and second heart sounds are normal; nonpitting edema left leg. LUNGS: Respiratory rate increased; decreased breath sounds. Occasional crackles ABDOMEN: Soft, nontender, liver spleen not palpable, no masses palpable. PSYCH: Alert and oriented x3; mood and affect normal. MUSCULOSKELETAL:No Clubbing/cyanosis;muscles-grossly intact. Kyphotic. OA Extremity: Left lower extremity redness greatly improved. INVESTIGATIONS, reviewed in the clinical context: Dobutamine stress echocardiogram: Reportedly negative March 23, 2025: White count 8.5 hemoglobin 13.3 platelets 193 sodium 139 p otassium 5.0 BUN 29 creatinine 0.87 Troponin I less than 0.012 x 2 EKG tracing personally reviewed by me-normal sinus rhythm. Some T wave changes anterior leads Chest x-ray film personally reviewed by me-portable. Decreased penetration. Possibly chronic changes 2D echo November 2024: EF 55 to 60%. Moderate concentric LVH. Assessment and plan: - Anterior chest wall pain. Pain rating to her jaw. Lasted only for 5 minutes. At rest. Serial troponins. EKG nonspecific T wave changes. Seen by cardiology. Negative stress echocardiogram. Patient to follow-up with her help desk associate - Left eye infection has been going on. Patient to continue with her treatment to follow-up with her service dog trainer. Discussed with the patient and -GERD Nexium 20 mg a day - severe persistent asthma, Flovent discus. Trelegy Ellipta. DuoNeb as needed. -Hypothyroid Synthroid 125 g -Essential hypertension Losartan 100 mg a day Cardizem CD 240 mg a -Chronic adrenal insufficiency Cortef 15 mg a day, 10 mg at 5 PM -Chronic tracheobronchomalacia -Chronic osteoporosis, osteopenia, spinal stenosis, DJD -Hyperlipidemia Crestor 5 mg daily at bedtime Prolia -Chronic constipation Uses laxatives as needed -Chronic pulmonary embolism Xarelto 10 mg a day -Chronic DJD, spinal stenosis Calcium supplements -Chronic arthritis multiple joints -Chronic gait dysfunction uses a Rollator baseline -Chronic lymphedema left lower extremity right upper extremity -Left frozen shoulder -Medical power of employment law attorney: Contreras Dolph -DNR Advance care planning November 19, 2024 Had a lengthy discussion with the patient and at the bedside. Patient overall functional status multiple medical problems overall poor in the context of resuscitation. After full discussion patient decided to be no code understanding until such time she will receive all treatment. Patient does have a trust. And there is a medical power of employment law attorney in succession. Disposition: Home Past Medical History Past Medical History: Asthma, COPD, Fibromyalgia, Hypertension, Osteoarthritis (OA), Pneumonia, Pulmonary Embolus (PE), Respiratory Disorder, Skin Disorder, Thyroid Disorder Additional Past Medical History / Comment(s): rt carpel tunnel,bronchoscopy,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, 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), palpitations, MTHFR gene, multiple PEs, adrenal insufficiency, hiatal hernia, macular degeneration with L eye worse, stuccokeratosis of skin, chronic back pain and bilateral sciatica L side worse, lumbar DDD, migraines, osteoporosis, spinal stenosis, recent rt knee injury. lymphodema. History of Any Multi-Drug Resistant Organisms: None Reported Past Surgical History: Section, Cholecystectomy, Heart Catheterization, Orthopedic Surgery, Tonsillectomy Additional Past Surgical History / Comment(s): RIGHT CARPAL TUNNEL RELEASE ON 04/22/20. R ankle plate/screws, L wrist carpal tunnel release, multiple bronchoscopies, bronchial thermoplasty x3, EGDs, colonoscopies/polypectomy, deviated septal surgery, [facility] pain clinic procedures, PICC/later removed, bilateral cataract removals/lens implants. Past Anesthesia/Blood Transfusion Reactions: Family History of Problems w/ Anesthesia, Postoperative Nausea & Vomiting (PONV) Additional Past Anesthesia/Blood Transfusion Reaction / Comment(s): Pt has never received blood. Occ nausea. DAUGHTER PONV Past Psychological History: No Psychological Hx Reported Smoking Status: Former smoker Past Alcohol Use History: None Reported Past Drug Use History: None Reported Plan - Discharge Summary New Discharge Prescriptions: New Aspirin 81 mg PO DAILY tab Doxycycline 100 mg PO BID #5 tab Continue Rivaroxaban [Xarelto] 10 mg PO DAILY Rosuvastatin Calcium [Crestor] 5 mg PO DAILY Losartan Potassium 100 mg PO DAILY Vitamin C/Biotin [Hair, Skin and Nails Chew] 1 tab PO DAILY Denosumab [Prolia] 60 mg SQ Q180D Diltiazem Cd [Cardizem CD] 240 mg PO DAILY Sulfamethox-Tmp 800-160Mg [Bactrim DS 800-160 mg] 1 tab PO MOWEFR Vit C/E/Zn/Coppr/Lutein/Zeaxan [Preservision Areds 2 Softgel] 1 cap PO BID Cholecalciferol [Vitamin D3 (25 Mcg = 1000 Iu)] 25 mcg PO DAILY Ipratropium Nebulized [Atrovent Nebulized 0.2 MG/ML] 0.5 mg INHALATION RT-QID Hydrocortisone [Cortef] 10 mg PO DAILY@1500 polyethylene glycoL 3350 [Miralax] 17 gm PO TID PRN PRN Reason: Constipation Ascorbic Acid [Vitamin C chew] 500 mg PO DAILY Tezepelumab-Ekko [Tezspire] 210 mg SQ QMONTHLY Fluticasone/Umeclidin/Vilanter [Trelegy Ellipta 200-62.5-25] 1 puff INHALATION RT-DAILY Levothyroxine Sodium [Synthroid] 125 mcg PO DAILY Gabapentin [Neurontin] 300 mg PO TID 30 Days #90 cap Benzonatate [Tessalon Perles] 100 mg PO TID PRN PRN Reason: Cough Isosorbide Mononitrate ER [Imdur] 15 mg PO DAILY Caltrate W/Vitamin D3 500mg/800iu 1 tab PO BID Levocetirizine Dihydrochloride [Xyzal] 5 mg PO DAILY Esomeprazole Magnesium [NexIUM 24Hr] 20 mg PO DAILY Hydrocortisone [Cortef] 15 mg PO DAILY Fluticasone Propionate [Flovent Diskus] 1 puff INHALATION RT-DAILY Albuterol Sulfate [Albuterol Sulfate Hfa] 2 puff INHALATION RT-Q6H PRN PRN Reason: Shortness Of Breath Ubidecarenone [Coenzyme Q10] 200 mg PO DAILY Magnesium 200 mg PO DAILY Furosemide [Lasix] 20 mg PO DAILY PRN PRN Reason: Edema Baclofen 10 mg PO BID 30 Days #60 tab Tirzepatide [Mounjaro] 12.5 mg SQ MO Prucalopride Succinate [Motegrity] 2 mg PO DAILY Multivitamin [place] Chewable For Seniors 1 tab PO DAILY oxyCODONE HCL/ACETAMINOPHEN [Percocet 10-325 mg] 1 tab PO TID PRN 30 Days #90 tab PRN Reason: Pain Discharge Medication List Rivaroxaban [Xarelto] 10 mg PO DAILY 08/27/17 [History] Rosuvastatin Calcium [Crestor] 5 mg PO DAILY 06/27/18 [History] Losartan Potassium 100 mg PO DAILY 10/31/18 [History] Vitamin C/Biotin [Hair, Skin and Nails Chew] 1 tab PO DAILY 07/02/19 [History] Denosumab [Prolia] 60 mg SQ Q180D 07/13/19 [History] Diltiazem Cd [Cardizem CD] 240 mg PO DAILY 07/13/19 [History] Sulfamethox-Tmp 800-160Mg [Bactrim DS 800-160 mg] 1 tab PO MOWEFR 02/26/20 [History] Levocetirizine Dihydrochloride [Xyzal] 5 mg PO DAILY 01/05/21 [History] Vit C/E/Zn/Coppr/Lutein/Zeaxan [Preservision Areds 2 Softgel] 1 cap PO BID 04/28/21 [History] Cholecalciferol [Vitamin D3 (25 Mcg = 1000 Iu)] 25 mcg PO DAILY 09/07/21 [History] Esomeprazole Magnesium [NexIUM 24Hr] 20 mg PO DAILY 09/07/21 [History] Fluticasone Propionate [Flovent Diskus] 1 puff INHALATION RT-DAILY 09/07/21 [History] Hydrocortisone [Cortef] 10 mg PO DAILY@1500 09/07/21 [History] Hydrocortisone [Cortef] 15 mg PO DAILY 09/07/21 [History] Ipratropium Nebulized [Atrovent Nebulized 0.2 MG/ML] 0.5 mg INHALATION RT-QID 09/07/21 [History] Albuterol Sulfate [Albuterol Sulfate Hfa] 2 puff INHALATION RT-Q6H PRN 11/12/22 [History] Ascorbic Acid [Vitamin C chew] 500 mg PO DAILY 11/12/22 [History] Fluticasone/Umeclidin/Vilanter [Trelegy Ellipta 200-62.5-25] 1 puff INHALATION RT-DAILY 11/12/22 [History] Levothyroxine Sodium [Synthroid] 125 mcg PO DAILY 11/12/22 [History] Magnesium 200 mg PO DAILY 11/12/22 [History] Tezepelumab-Ekko [Tezspire] 210 mg SQ QMONTHLY 11/12/22 [History] Ubidecarenone [Coenzyme Q10] 200 mg PO DAILY 11/12/22 [History] polyethylene glycoL 3350 [Miralax] 17 gm PO TID PRN 11/12/22 [History] Furosemide [Lasix] 20 mg PO DAILY PRN 11/19/24 [History] Baclofen 10 mg PO BID 30 Days #60 tab 01/21/25 [Rx] Gabapentin [Neurontin] 300 mg PO TID 30 Days #90 cap 01/21/25 [Rx] Benzonatate [Tessalon Perles] 100 mg PO TID PRN 03/02/25 [History] Caltrate W/Vitamin D3 500mg/800iu 1 tab PO BID 03/02/25 [History] Isosorbide Mononitrate ER [Imdur] 15 mg PO DAILY 03/02/25 [History] Multivitamin [place] Chewable For Seniors 1 tab PO DAILY 03/02/25 [History] Prucalopride Succinate [Motegrity] 2 mg PO DAILY 03/02/25 [History] Tirzepatide [Mounjaro] 12.5 mg SQ MO 03/02/25 [History] oxyCODONE HCL/ACETAMINOPHEN [Percocet 10-325 mg] 1 tab PO TID PRN 30 Days #90 tab 03/09/25 [Rx] Aspirin 81 mg PO DAILY tab 03/24/25 [Rx] Doxycycline 100 mg PO BID #5 tab 03/24/25 [Rx] Follow up Appointment(s)/Referral(s): cardiology, [Other] - 10 Days Laurent Gramajo DO [Primary Care Provider] - 1-2 days
[2025-03-24] MEDS: DOXYCYCLINE 100 MG TABLET PO SCH (19:26)
[2025-03-24 21:35] LABS: Chol/HDL Ratio 2.19 Ratio; LDL Cholesterol,Calculated 51.8 mg/dL (0.0-131.0)
== END 2025-03-24 19:53 ==
LOC: EC 12:18 → 6NMEDSUR 15:40 → UNDOADMOB 15:57 → 6NMEDSUR 15:57
PROVIDERS: ADMIT Hospitalist; ATTEND Hospitalist
DX: R07.89 Other chest pain (principal); I10 Essential (primary) hypertension; J44.89 Other specified chronic obstructive pulmonary disease; E78.5 Hyperlipidemia, unspecified; K21.9 Gastro-esophageal reflux disease without esophagitis; J45.50 Severe persistent asthma, uncomplicated; E03.9 Hypothyroidism, unspecified; E27.40 Unspecified adrenocortical insufficiency; J98.09 Other diseases of bronchus, not elsewhere classified; K59.09 Other constipation; M47.816 Spondylosis without myelopathy or radiculopathy, lumbar region; M48.00 Spinal stenosis, site unspecified; M81.0 Age-related osteoporosis without current pathological fracture; R26.9 Unspecified abnormalities of gait and mobility; I89.0 Lymphedema, not elsewhere classified; M75.02 Adhesive capsulitis of left shoulder; H44.002 Unspecified purulent endophthalmitis, left eye; E66.01 Morbid (severe) obesity due to excess calories; Z68.41 Body mass index [BMI] 40.0-44.9, adult; Z66 Do not resuscitate; Z86.711 Personal history of pulmonary embolism; Z87.891 Personal history of nicotine dependence; Z79.01 Long term (current) use of anticoagulants; Z79.899 Other long term (current) drug therapy; Z79.51 Long term (current) use of inhaled steroids; Z79.890 Hormone replacement therapy; Z88.0 Allergy status to penicillin; Z88.1 Allergy status to other antibiotic agents; Z88.6 Allergy status to analgesic agent; Z82.49 Family history of ischemic heart disease and other diseases of the circulatory system
CPT/HCPCS: 99285; 36415; 94640 ×2; 94760; 93005; 93351; 80061; 80053; 83735; 84484; 85025; 85610; 85730; 81001; 71046; G0378 ×2

== ENCOUNTER → 2025-04-21 | Outpatient (CLI) | payer MEDICARE, BC ==
[2025-04-21 09:31] VITALS: BP 102/61; PULSE 80; RESP 19
--- NOTE | 2025-04-26 16:17 | P.PAINPG ---
Objective - Vital Signs Vital signs: Vital Signs Temp Pulse 80 04/21/25 09:24 Resp 19 04/21/25 09:24 BP 102/61 04/21/25 09:24 Pulse Ox 93 L 04/21/25 09:24 FiO2 Intake & Output 04/20/25 04/21/25 04/21/25 18:59 06:59 18:59 Weight 91.626 kg PQRS Measure Charge Sheet Mode of Arrival: Ambulatory Comment: A 74 yr old wheelchair bound female w at side with a history of severe and chronic LBP since 2013 secondary to radiculopathy, spondylosis and facet arthropathy without myelopathy presents today for medication refills. Pain level is provoked at 7-8 /10 in intensity, constant, localized in the lumbar spine, throbbing in character w shooting towards the BLEs, L >R. Pain is provoked by standing/ walking for periods of 10-15 min, or bending. Pain is alleviated with medications, PT years ago but provoked pain, acupuncture in 2019 which was ineffective, heat, medications, topical, use of reclining posture-pedic bed, laying on her R side repositioning and rest. Interventional pain procedures completed include LESIs Patient is currently on Percocet 10/325mg, Neurontin, Baclofen Patient denies any side effects of the medication(s), denies excessive drowsiness or sleepiness, denies suicidal ideation and reports that the current pain medication is helping to control the pain and improve activities of daily living. Patient denies any motor or sensory deficits. Patient denies any fever or night sweats, denies any change in the bowel movements or urination. Physical Examination: -Constitutional: Cooperative. Not in acute distress . - Neurologic: Cranial nerve II to XII intact. No focal neurological deficits. - Psychatric: Alert & oriented x 3. Matching mood & appropriate affect. Judgment and insight intact. - Musculoskeletal: Cervical spine: Muscle bulk/ tone/ strength in the bilateral upper extremities normal Vertebral body tenderness to palpation over Spurling test positive Distraction test positive Facet loading test positive Thoracic spine Muscle bulk / tone/ strength in the bilateral paraspinal muscles normal Vertebral body tender to palpation over Facet loading test positive Lumbar spine: Motor bulk/ tone/ strength lower extremities , thigh and legs : 5/5 Deep tendon reflexes : Normal Knee Jerk. Normal Ankle Jerk . Vertebral body tenderness to palpation over L3, L4, L5 Lumbar Facet Loading Test positive Straight Leg Raise: positive at 30 degrees right side/ left side Gaenslen's Test positive Sacral spine : Severe tenderness over the Sacroiliac joint: right side / left side Range of motion: Flexion of the lumbar spine <60 degrees Range of motion: Extension of the lumbar spine <20 degrees Gaenslen's Test positive Ana test: positive right side / left side Thigh Thrust Test Sacral Thrust Test Assessment and plan: Chronic LBP secondary to radiculopathy, spondylosis with facet arthropathy without myelopathy Chronic and current use of high-risk medication (Opioids). The patient was counseled about risk of opioid use, psychological risk associated with opioids and was orally counseled to not overuse , divert or sell medications. Pt is to store medication in a safe location. The patient is counseled against driving while using narcotic medications and also not to use alcohol or any illicit recreational drugs. Patient verbalized understanding that the lack of compliance will result in failure to renew narcotic prescription(s) as well as possible discharge from the clinic Diagnoses, prognosis and treatment options including but not limited to physical therapy, surgical interventions, interventional therapies and medication management including narcotics and adjuvant medication were discussed. All patient questions answered .MAPS reviewed and it was appropriate. UDS 10/22/24 reviewed and consistent. Opiate/ narcotic agreement renewed 07/30/24 . Prescription refill for Baclofen, Neurontin, Percocet 10/325mg # 90 w 2 RF. I have spent less than 30 minutes on patient care today. Dr Rubin was available by phone for the evaluation of this patient. The time was used to review the medical records including relevant urine studies and Prescription history (MAPs), review of the available imaging, evaluation and examination of the patient, coordination of care with the medical staff and if applicable referring physicians, as well as creation of the medical record - Pain Location Lower Back Pharmacological Interventions: Medication PQRS Narrative: Smoking Status Former smoker Narcotic Agreement Date Signed 07/30/24 Blood Pressure 102/61 Pain Intensity [Lower Back] 8 Scale Used Numeric (1 - 10) Hx Alcohol Use (MH) No Home Medications: Ambulatory Orders Rivaroxaban [Xarelto] 10 mg PO DAILY 08/27/17 Rosuvastatin Calcium [Crestor] 5 mg PO DAILY 06/27/18 Losartan Potassium 100 mg PO DAILY 10/31/18 Vitamin C/Biotin [Hair, Skin and Nails Chew] 1 tab PO DAILY 07/02/19 Denosumab [Prolia] 60 mg SQ Q180D 07/13/19 Diltiazem Cd [Cardizem CD] 240 mg PO DAILY 07/13/19 Sulfamethox-Tmp 800-160Mg [Bactrim DS 800-160 mg] 1 tab PO MOWEFR 02/26/20 Levocetirizine Dihydrochloride [Xyzal] 5 mg PO DAILY 01/05/21 Vit C/E/Zn/Coppr/Lutein/Zeaxan [Preservision Areds 2 Softgel] 1 cap PO BID 04/28/21 Cholecalciferol [Vitamin D3 (25 Mcg = 1000 Iu)] 25 mcg PO DAILY 09/07/21 Esomeprazole Magnesium [NexIUM 24Hr] 20 mg PO DAILY 09/07/21 Fluticasone Propionate [Flovent Diskus] 1 puff INHALATION RT-DAILY 09/07/21 Hydrocortisone [Cortef] 10 mg PO DAILY@1500 09/07/21 Hydrocortisone [Cortef] 15 mg PO DAILY 09/07/21 Ipratropium Nebulized [Atrovent Nebulized 0.2 MG/ML] 0.5 mg INHALATION RT-QID 09/07/21 Albuterol Sulfate [Albuterol Sulfate Hfa] 2 puff INHALATION RT-Q6H PRN 11/12/22 Ascorbic Acid [Vitamin C chew] 500 mg PO DAILY 11/12/22 Fluticasone/Umeclidin/Vilanter [Trelegy Ellipta 200-62.5-25] 1 puff INHALATION RT-DAILY 11/12/22 Levothyroxine Sodium [Synthroid] 125 mcg PO DAILY 11/12/22 Magnesium 200 mg PO DAILY 11/12/22 Tezepelumab-Ekko [Tezspire] 210 mg SQ QMONTHLY 11/12/22 Ubidecarenone [Coenzyme Q10] 200 mg PO DAILY 11/12/22 polyethylene glycoL 3350 [Miralax] 17 gm PO TID PRN 11/12/22 Furosemide [Lasix] 20 mg PO DAILY PRN 11/19/24 Benzonatate [Tessalon Perles] 100 mg PO TID PRN 03/02/25 Caltrate W/Vitamin D3 500mg/800iu 1 tab PO BID 03/02/25 Isosorbide Mononitrate ER [Imdur] 15 mg PO DAILY 03/02/25 Multivitamin [place] Chewable For Seniors 1 tab PO DAILY 03/02/25 Prucalopride Succinate [Motegrity] 2 mg PO DAILY 03/02/25 Tirzepatide [Mounjaro] 12.5 mg SQ MO 03/02/25 Aspirin 81 mg PO DAILY tab 03/24/25 Doxycycline 100 mg PO BID #5 tab 03/24/25 Baclofen 10 mg PO BID 30 Days #60 tab 04/21/25 Gabapentin [Neurontin] 300 mg PO TID 30 Days #90 cap 04/21/25 oxyCODONE HCL/ACETAMINOPHEN [Percocet 10-325 mg] 1 tab PO TID PRN 30 Days #90 tab 04/21/25 oxyCODONE HCL/ACETAMINOPHEN [Percocet 10-325 mg] 1 tab PO TID PRN 30 Days #90 tab 04/21/25 oxyCODONE HCL/ACETAMINOPHEN [Percocet 10-325 mg] 1 tab PO TID PRN 30 Days #90 tab 04/21/25 Controlled Substance Measures - Controlled Substance Measures Is patient prescribed a controlled substance at discharge?: Yes When asked, does pt state using other controlled substances?: No If prescribed controlled substance>3 days was MAPS reviewed?: Yes
== END ==
LOC: PNWHC3 09:09
PROVIDERS: ATTEND Specialist
DX: M47.26 Other spondylosis with radiculopathy, lumbar region (principal); Z87.891 Personal history of nicotine dependence; Z88.0 Allergy status to penicillin; Z88.1 Allergy status to other antibiotic agents; Z91.018 Allergy to other foods; Z88.8 Allergy status to other drugs, medicaments and biological substances; Z79.891 Long term (current) use of opiate analgesic
CPT/HCPCS: 99212